=== PATIENT | female | born 1965 | race Caucasian/White ===

== ENCOUNTER 2017-05-16 20:28 | Emergency (ER) | payer BC ==
[2017-05-16 21:25] LABS: ADD MAN DIFF? NO
[2017-05-16 21:28] LABS: BASO # 0.2 x10^3/uL (0.0-0.2); BASO % 2 % (0-3); EOS # 0.5 x10^3/uL (0.0-0.7); EOS % 5 % (0-3); HEMATOCRIT 27.9 % (36.0-47.0); HEMOGLOBIN 9.3 g/dL (12.0-15.5); LYMPH # 2.3 x10^3/uL (1.0-4.8); LYMPH % 23 % (24-48); MEAN CORPUSCULAR HEMOGLOBIN 28 pg (25-35); MEAN CORPUSCULAR HGB CONC 33 g/dL (31-37); MEAN CORPUSCULAR VOLUME 83 fL (79-100); MONO # 0.5 x10^3/uL (0.0-1.1); MONO % 5 % (0-9); NEUT # 6.6 x10^3uL (1.8-7.7); NEUT % 65 % (31-73); PLATELET COUNT 253 x10^3/uL (140-400); RED BLOOD COUNT 3.35 x10^6/uL (3.50-5.40); RED CELL DISTRIBUTION WIDTH 15.4 % (11.5-14.5); WHITE BLOOD COUNT 10.1 x10^3/uL (4.0-11.0)
[2017-05-16] MEDS: IV NORMAL SALINE 1000ML BAG 1,000 ML IV (21:35)
[2017-05-16 21:40] LABS: ANION GAP 15 (6-14); BLOOD UREA NITROGEN 94 mg/dL (7-20); BUN/CREATININE RATIO 24 (6-20); CALCIUM 8.8 mg/dL (8.5-10.1); CARBON DIOXIDE 21 mmol/L (21-32); CHLORIDE 108 mmol/L (98-107); CREATININE 3.9 mg/dL (0.6-1.0); GFR 12.1; GLUCOSE 137 mg/dL (70-99); POTASSIUM 5.3 mmol/L (3.5-5.1); SODIUM 144 mmol/L (136-145)
[2017-05-16 21:46] LABS: ALBUMIN 3.1 g/dL (3.4-5.0); ALBUMIN/GLOBULIN RATIO 0.9 (1.0-1.7); ALK PHOS 100 U/L (46-116); ALT (SGPT) 23 U/L (14-59); AST (SGOT) 15 U/L (15-37); LIPASE 214 U/L (73-393); TOTAL BILIRUBIN 0.2 mg/dL (0.2-1.0); TOTAL PROTEIN 6.4 g/dL (6.4-8.2)
[2017-05-16 21:48] LABS: TROPONINI < 0.017 ng/mL (0.000-0.055)
[2017-05-16 22:11] LABS: CKMB INDEX 1.8 % (0-4); CKMB MASS 1.5 ng/mL (0.0-3.6); CREATINE KINASE 83 U/L (26-192)
[2017-05-16 22:11] LABS: NT-PRO BNP 580 pg/mL (0-124)
== END 2017-05-16 23:00 | disposition home or self-care (01) ==
LOC: ER 20:28
DX: B34.9 Viral infection, unspecified (principal); I12.9 Hypertensive chronic kidney disease with stage 1 through stage 4 chronic kidney disease, or unspecified chronic kidney disease; E11.22 Type 2 diabetes mellitus with diabetic chronic kidney disease; N18.4 Chronic kidney disease, stage 4 (severe); E78.00 Pure hypercholesterolemia, unspecified; E66.01 Morbid (severe) obesity due to excess calories; Z76.82 Awaiting organ transplant status; Z68.42 Body mass index [BMI] 45.0-49.9, adult
CPT/HCPCS: 36415; 71045; 80053; 82553; 83690; 83880; 84484; 85025; 93005; 96360; 99285-25; J7030

== ENCOUNTER 2017-07-03 12:24 | Emergency (ER) | payer SELFPAY, BC ==
[2017-07-03 12:52] LABS: BILIRUBIN,URINE NEGATIVE (NEG); CLARITY,URINE TURBID; COLOR,URINE ORANGE; GLUCOSE,URINE NEGATIVE (NEG); NITRITE,URINE POSITIVE (NEG); PROTEIN,URINE 100 mg/dL (NEG-TRACE)
[2017-07-03 13:01] LABS: BACTERIA,URINE MANY /HPF (0-FEW); WBC,URINE TNTC /HPF (0-4)
== END 2017-07-03 13:30 | disposition home or self-care (01) ==
LOC: ER 12:24
DX: N39.0 Urinary tract infection, site not specified (principal); I12.9 Hypertensive chronic kidney disease with stage 1 through stage 4 chronic kidney disease, or unspecified chronic kidney disease; E11.22 Type 2 diabetes mellitus with diabetic chronic kidney disease; N18.4 Chronic kidney disease, stage 4 (severe); E78.00 Pure hypercholesterolemia, unspecified; G47.30 Sleep apnea, unspecified; Z87.440 Personal history of urinary (tract) infections; Z98.51 Tubal ligation status; [UNRECOGNIZED DIAGNOSIS CODE]
CPT/HCPCS: 81001; 87086; 87186; 99284

== ENCOUNTER → 2017-12-20 | Outpatient (CLI) | payer OTHER ==
[2017-07-03 12:42] VITALS: BP 147/48
[~2017-12-20] MED LIST: CIPR500T94 PO; FLUC150T PO
--- NOTE | 2017-12-21 16:26 | RAD ---
History: Routine screening. Technique: Bilateral digital mammographic routine views were obtained with CAD - computer aided detection. Comparison: 08/31/2014, 09/01/2012, 08/21/2015. Findings: Breast Tissue Density C : The breast tissue is heterogeneously dense. Scattered fibroglandular elements may obscure underlying pathology. There are no suspicious masses, microcalcifications or areas of architectural distortion. Impression: No suspicious findings. Recommendation: In the absence of new clinical symptoms or change in physical exam, annual screening mammography is recommended. BI-RADS Category 1: Negative. Your mammogram demonstrates that you have dense breast tissue, which could hide abnormalities, and if you have other risk factors for breast cancer that have been identified, you might benefit from supplemental screening tests that may be suggested by your ordering physician. Dense breast tissue, in and of itself, is a relatively common condition. This information is not provided to cause undue concern, but rather to raise your awareness and to promote discussion with your physician regarding the presence of other risk factors, in addition to dense breast tissue. A report of your mammography results will be sent to you and your physician. You should contact your physician if you have any questions or concerns regarding this report. A mammogram does not have 100% sensitivity and therefore a negative imaging study should not delay further work up of a suspicious abnormality. The patient will receive a letter with the results in the mail. Patient information is entered into the reminder system with a target due date for the next screening mammogram. The patient will receive a reminder. "Our facility is accredited by the [employer] Mammography Program."
== END | disposition home or self-care (01) ==
LOC: MAMMO 13:49
PROVIDERS: ATTEND Family Medicine
DX: R92.2 Inconclusive mammogram (principal); Z12.31 Encounter for screening mammogram for malignant neoplasm of breast
CPT/HCPCS: 77067

== ENCOUNTER → 2017-12-23 | Outpatient (CLI) | payer OTHER ==
[2017-07-03 12:42] VITALS: BP 147/48
--- NOTE | 2017-12-23 17:51 | RAD ---
EXAM: 3 views left foot DATE: 12/23/2017 10:00 AM INDICATION: open wound under left great toe, diabetic COMPARISON: No Prior FINDINGS: Diffuse soft tissue swelling about the left great toe. Ulceration is seen most prominent laterally and at the plantar aspect. No definite subjacent erosive/destructive change or periostitis is seen to suggest osteomyelitis. No evidence of acute fracture or dislocation. Mild ankle joint degenerative changes are seen with small anterior tibial osteophytes. Small dorsal midfoot osteophytes are also seen. Small plantar calcaneal enthesophyte is seen. IMPRESSION: 1. Soft tissue swelling and ulceration about the left great toe without radiographic evidence for acute osteomyelitis. MRI is more sensitive. 2. No evidence of acute fracture or dislocation. 3. Mild ankle and midfoot degenerative changes 4. Calcaneal enthesopathy. Electronically signed by: Rigo Andres MD (12/23/2017 5:47 PM) [facility]
== END | disposition home or self-care (01) ==
LOC: PMGWOUND 08:57
PROVIDERS: ATTEND Emergency Medicine Undersea and Hyperbaric Medicine
DX: E11.621 Type 2 diabetes mellitus with foot ulcer (principal); L97.521 Non-pressure chronic ulcer of other part of left foot limited to breakdown of skin; I12.9 Hypertensive chronic kidney disease with stage 1 through stage 4 chronic kidney disease, or unspecified chronic kidney disease; E11.22 Type 2 diabetes mellitus with diabetic chronic kidney disease; N18.4 Chronic kidney disease, stage 4 (severe); E11.319 Type 2 diabetes mellitus with unspecified diabetic retinopathy without macular edema; E11.42 Type 2 diabetes mellitus with diabetic polyneuropathy; M13.88 Other specified arthritis, other site; F32.9 Major depressive disorder, single episode, unspecified; F17.210 Nicotine dependence, cigarettes, uncomplicated; Z79.4 Long term (current) use of insulin; Z85.3 Personal history of malignant neoplasm of breast
CPT/HCPCS: 73630; 99204

== ENCOUNTER → 2017-12-27 | Outpatient (CLI) | payer OTHER ==
[2017-07-03 12:42] VITALS: BP 147/48
--- NOTE | 2017-12-27 16:08 | RAD ---
Left lower extremity arterial duplex ultrasound 12/27/2017 INDICATION: Left great toe swelling, redness COMPARISON STUDY: None FINDINGS: Elevated velocity is seen within the left common femoral artery, up to 245 cm/s. The profunda femoris artery is grossly patent. Mildly elevated velocities are seen in the distal left SFA up to 200 cm/s. The popliteal artery, anterior tibial artery, dorsalis pedis artery. We grossly patent. IMPRESSION: Increased velocities of the left common femoral and superficial femoral artery. Findings suggest possible hemodynamically significance stenosis. Consider CTA or conventional angiography for further evaluation. Electronically signed by: Manny Mcfadden MD (12/27/2017 4:04 PM) [id number]
--- NOTE | 2017-12-27 17:11 | RAD ---
EXAM: Left lower extremity arterial Doppler sonogram with ankle-brachial indices (ONELIA). HISTORY: Great toe swelling and redness. TECHNIQUE: Doppler sonographic evaluation of the left lower extremity was performed and pressure readings were assessed. FINDINGS: Right brachial pressure: 135 mmHg Left brachial pressure: 143 mmHg Left ankle pressure posterior tibial artery: 129 mmHg Left ankle pressure dorsalis pedis artery: 137 mmHg Left ankle ONELIA: 0.95 IMPRESSION: Normal to low normal left ankle-brachial index. Electronically signed by: Julianne Heller MD (12/27/2017 5:07 PM) [place] [id number]
== END | disposition home or self-care (01) ==
LOC: US 06:35
PROVIDERS: ATTEND Emergency Medicine Undersea and Hyperbaric Medicine
DX: R22.42 Localized swelling, mass and lump, left lower limb (principal)
CPT/HCPCS: 93922; 93926

== ENCOUNTER → 2017-12-30 | Outpatient (CLI) | payer OTHER ==
[2017-07-03 12:42] VITALS: BP 147/48
== END | disposition home or self-care (01) ==
LOC: PMGWOUND 09:26
PROVIDERS: ATTEND Emergency Medicine Undersea and Hyperbaric Medicine
DX: E11.621 Type 2 diabetes mellitus with foot ulcer (principal); L97.521 Non-pressure chronic ulcer of other part of left foot limited to breakdown of skin; I12.9 Hypertensive chronic kidney disease with stage 1 through stage 4 chronic kidney disease, or unspecified chronic kidney disease; E11.22 Type 2 diabetes mellitus with diabetic chronic kidney disease; N18.4 Chronic kidney disease, stage 4 (severe); E11.42 Type 2 diabetes mellitus with diabetic polyneuropathy; E11.319 Type 2 diabetes mellitus with unspecified diabetic retinopathy without macular edema; J44.9 Chronic obstructive pulmonary disease, unspecified; M13.88 Other specified arthritis, other site; F32.9 Major depressive disorder, single episode, unspecified; F17.210 Nicotine dependence, cigarettes, uncomplicated; Z79.4 Long term (current) use of insulin; Z85.3 Personal history of malignant neoplasm of breast
CPT/HCPCS: 93923; 97597

== ENCOUNTER → 2018-01-03 | Outpatient (CLI) | payer OTHER ==
[2017-07-03 12:42] VITALS: BP 147/48
== END | disposition home or self-care (01) ==
LOC: PMGWOUND 08:52
PROVIDERS: ATTEND Emergency Medicine Undersea and Hyperbaric Medicine
DX: E11.621 Type 2 diabetes mellitus with foot ulcer (principal); L97.528 Non-pressure chronic ulcer of other part of left foot with other specified severity; I12.9 Hypertensive chronic kidney disease with stage 1 through stage 4 chronic kidney disease, or unspecified chronic kidney disease; E11.22 Type 2 diabetes mellitus with diabetic chronic kidney disease; N18.4 Chronic kidney disease, stage 4 (severe); E11.42 Type 2 diabetes mellitus with diabetic polyneuropathy; E11.319 Type 2 diabetes mellitus with unspecified diabetic retinopathy without macular edema; M13.88 Other specified arthritis, other site; J44.9 Chronic obstructive pulmonary disease, unspecified; F32.9 Major depressive disorder, single episode, unspecified; F17.210 Nicotine dependence, cigarettes, uncomplicated; E66.9 Obesity, unspecified; Z68.42 Body mass index [BMI] 45.0-49.9, adult; Z79.4 Long term (current) use of insulin; Z85.3 Personal history of malignant neoplasm of breast
CPT/HCPCS: 99213

== ENCOUNTER → 2018-10-12 | Outpatient (CLI) | payer OTHER ==
[2017-07-03 12:42] VITALS: BP 147/48
--- NOTE | 2018-10-12 17:02 | RAD ---
EXAM: Chest, 2 views. HISTORY: End-stage renal disease. Shortness of breath. COMPARISON: None. FINDINGS: 2 views of the chest are obtained. There is no infiltrate, pleural effusion or pneumothorax. There is a prominent cardiac silhouette. IMPRESSION: No acute pulmonary finding. Electronically signed by: Julianne Heller MD (10/12/2018 4:59 PM) [facility]
== END | disposition home or self-care (01) ==
LOC: RAD 15:39
PROVIDERS: ATTEND Internal Medicine Nephrology
DX: I12.0 Hypertensive chronic kidney disease with stage 5 chronic kidney disease or end stage renal disease (principal); E11.22 Type 2 diabetes mellitus with diabetic chronic kidney disease; N18.6 End stage renal disease; N25.81 Secondary hyperparathyroidism of renal origin; Z99.2 Dependence on renal dialysis
CPT/HCPCS: 36415; 71046; 86705; 86706; 87340

== ENCOUNTER 2018-11-24 15:32 | Inpatient (IN) | payer MEDICAID ==
[~2018-11-24] VITALS: Ht 160 cm; Wt 124.7 kg
[2018-11-24 15:00] VITALS: BP 131/53
[2018-11-24] MEDS ORDERED: PIPERACILLIN/TAZOBACTAM 4.5 GM in IV NORMAL SALINE 100ML 100 ML IV SCH (18:00)
[2018-11-24] MEDS: IV NORMAL SALINE 1000ML BAG 1,000 ML IV SCH (18:26)
[2018-11-24 18:33] LABS: BASO # 0.1 x10^3/uL (0.0-0.2); BASO % 1 % (0-3); EOS # 0.1 x10^3/uL (0.0-0.7); EOS % 1 % (0-3); HEMATOCRIT 27.1 % (36.0-47.0); HEMOGLOBIN 9.1 g/dL (12.0-15.5); LYMPH # 2.1 x10^3/uL (1.0-4.8); LYMPH % 19 % (24-48); MEAN CORPUSCULAR HEMOGLOBIN 29 pg (25-35); MEAN CORPUSCULAR HGB CONC 34 g/dL (31-37); MEAN CORPUSCULAR VOLUME 87 fL (79-100); MONO # 0.9 x10^3/uL (0.0-1.1); MONO % 8 % (0-9); NEUT # 7.8 x10^3/uL (1.8-7.7); NEUT % 72 % (31-73); PLATELET COUNT 219 x10^3/uL (140-400); RED CELL DISTRIBUTION WIDTH 19.2 % (11.5-14.5)
[2018-11-24 18:49] LABS: ALBUMIN 2.4 g/dL (3.4-5.0); ALBUMIN/GLOBULIN RATIO 0.5 (1.0-1.7); CALCIUM 8.6 mg/dL (8.5-10.1); CREATININE 3.5 mg/dL (0.6-1.0); GFR 13.6; POTASSIUM 3.1 mmol/L (3.5-5.1); TOTAL BILIRUBIN 0.3 mg/dL (0.2-1.0); TOTAL PROTEIN 6.9 g/dL (6.4-8.2); URIC ACID 6.4 mg/dL (2.6-6.0)
[2018-11-24 19:00] VITALS: BP 111/51
[2018-11-24] MEDS ORDERED: VANCOMYCIN 2 GM in IV NORMAL SALINE 500ML BAG 500 ML IV ONE (19:00)
[2018-11-24 19:04] LABS: C-REACTIVE PROTEIN 273.8 mg/L (0-3.3)
[2018-11-24] MEDS ORDERED: TORS10TA3 PO (19:56)
[2018-11-24] MEDS ORDERED: FERR325T14 PO (19:56)
[2018-11-24] MEDS ORDERED: TURM500C4 PO (19:56)
[2018-11-24] MEDS ORDERED: GABA300C18 PO (19:56)
[2018-11-24] MEDS ORDERED: MULT1TAB49 PO (19:56)
[2018-11-24] MEDS ORDERED: DULO30CA2 PO (19:56)
[2018-11-24] MEDS ORDERED: CARV25TA2 PO (19:56)
[2018-11-24] MEDS ORDERED: jenuvia (19:56)
[2018-11-24] MEDS ORDERED: ASPI-630 PO (19:56)
[2018-11-24] MEDS ORDERED: TORS20TA2 PO (19:56)
[2018-11-24] MEDS ORDERED: ATOR40TA59 PO (19:56)
[2018-11-24] MEDS ORDERED: GABA600T7 PO (19:56)
[2018-11-24] MEDS ORDERED: MONT10TA49 PO (19:56)
[2018-11-24] MEDS ORDERED: BISA-97 PO (19:56)
[2018-11-24] MEDS ORDERED: INSU100I17 SQ (20:01)
[2018-11-24] MEDS ORDERED: INSU100I13 SQ (20:01)
[2018-11-24] MEDS: MONTELUKAST SODIUM 10 MG TABLET. PO SCH (20:17)
[2018-11-24] MEDS: TORSEMIDE 20 MG TABLET. PO SCH (20:18)
[2018-11-24] MEDS: ATORVASTATIN CALCIUM 40 MG TABLET. PO SCH (20:18)
[2018-11-24] MEDS: DULoxetine HCL 30 MG CAPSULE.DR PO SCH (20:18)
[2018-11-24] MEDS: HYDROcodone/APAP 7.5/325MG 1 TAB TABLET PO PRN (20:19)
[2018-11-24] MEDS: GABAPENTIN 300 MG CAPSULE. PO SCH (21:09)
[2018-11-24] MEDS ORDERED: INSULIN LISPRO 300 UNITS/3 ML INSULN.PEN. SQ ONE (21:30)
[2018-11-24] MEDS: INSULIN GLARGINE 300 UNITS/3 ML INSULN.PEN. SQ SCH (22:41)
[2018-11-24 23:00] VITALS: BP 120/49
[2018-11-25] MEDS: PIPERACILLIN/TAZOBACTAM 2.25 GM in IV NORMAL SALINE 50ML 50 ML IV SCH ×4 (00:22→17:25)
[2018-11-25] MEDS: HYDROcodone/APAP 7.5/325MG 1 TAB TABLET PO PRN ×2 (00:22→05:06)
[2018-11-25 03:00] VITALS: BP 136/52
--- NOTE | 2018-11-25 03:15 | NUR ---
Applied 2L NC to patient d/t oxygen saturation of 87% while sleeping. Patient is supposed to wear CPAP at home but doesn't. Oxygen saturation mane to 94% with 2L per NC. Will continue to monitor and pass along to day RN.
[2018-11-25 05:03] LABS: BASO # 0.1 x10^3/uL (0.0-0.2); BASO % 1 % (0-3); EOS # 0.2 x10^3/uL (0.0-0.7); EOS % 2 % (0-3); HEMATOCRIT 27.6 % (36.0-47.0); HEMOGLOBIN 8.9 g/dL (12.0-15.5); LYMPH % 18 % (24-48); MEAN CORPUSCULAR HEMOGLOBIN 28 pg (25-35); MEAN CORPUSCULAR HGB CONC 32 g/dL (31-37); MEAN CORPUSCULAR VOLUME 88 fL (79-100); MONO % 9 % (0-9); NEUT # 7.8 x10^3/uL (1.8-7.7); NEUT % 71 % (31-73); PLATELET COUNT 250 x10^3/uL (140-400); RED BLOOD COUNT 3.13 x10^6/uL (3.50-5.40); RED CELL DISTRIBUTION WIDTH 19.1 % (11.5-14.5); WHITE BLOOD COUNT 11.1 x10^3/uL (4.0-11.0)
[2018-11-25 05:21] LABS: CALCIUM 8.8 mg/dL (8.5-10.1); CREATININE 3.6 mg/dL (0.6-1.0); GFR 13.2; POTASSIUM 3.7 mmol/L (3.5-5.1)
[2018-11-25] MEDS: IV NORMAL SALINE 1000ML BAG 1,000 ML IV SCH ×2 (06:35→19:16)
[2018-11-25 07:00] VITALS: BP 99/54
[2018-11-25] MEDS ORDERED: SITA50TA PO (07:13)
[2018-11-25] MEDS: INSULIN LISPRO 300 UNITS/3 ML INSULN.PEN. SQ SCH ×3 (07:30→16:30)
--- NOTE | 2018-11-25 07:37 | RAD ---
Ultrasound venous Doppler INDICATION:Right ankle swelling and pain. TECHNIQUE: Grayscale, color Doppler and spectral waveform ultrasound images of the right lower extremity deep veins obtained. COMPARISON: None FINDINGS: The interrogated deep veins are compressible and demonstrate evidence of blood flow with normal respiratory variation and response to augmentation. IMPRESSION: No sonographic evidence of acute DVT of the right lower extremity deep veins. Electronically signed by: Jonatan Holland DO (11/25/2018 7:35 AM) [facility]
--- NOTE | 2018-11-25 07:42 | RAD ---
Indication: Right leg swelling and pain TECHNIQUE: 3 views of the right ankle and 2 views of the tibia and fibula COMPARISON: None Findings: No acute fracture or dislocation. Moderate ankle and foot swelling. Ankle mortise is intact. Erosive changes are seen in the dorsal aspect of the head of the talus. Bridging osteophyte is seen in the dorsal aspect of the navicular bone and medial cuneiform. Moderate-sized plantar calcaneal spur noted. Erosive changes seen in the medial and superior aspect of the navicular bone. IMPRESSION: Findings are concerning for osteomyelitis involving head of the talus and navicular bone. Septic arthritis involving joint between navicular bone and medial cuneiform is also a possibility. Consider further evaluation with MRI of the foot with IV contrast. Electronically signed by: Jonatan Holland DO (11/25/2018 7:39 AM) [facility]
--- NOTE | 2018-11-25 08:31 | PDOC1 ---
H & P. HPI: Ms. Walker is a 53-year-old female with past medical history of hypertension, diabetes, end-stage renal disease requiring dialysis, COPD, nicotine dependence, hyperlipidemia, who presented to clinic yesterday for recent onset right foot pain without known injury. She notes that pain began about 2-3 days ago and increased in severity fairly quickly with swelling and erythema over the dorsum of the right foot. She also notes pain extends into the right posterior calf. She was also complaining of feeling weak, having fever at home, chills and malaise. She was noted in clinic yesterday to have a temperature of 100.2 and a blood pressure of 89/50 with a heart rate of 92. Out of concern for cellulitis and sepsis, she was directly admitted for further evaluation and management. A right lower extremity Doppler was negative for DVT. An x-ray of the right foot shows osteomyelitis of the talus versus possible septic joint. Her labs are remarkable for elevated creatinine, I am unsure of patient's current baseline. She routinely gets dialysis on Wednesdays and Fridays. Uric acid is mildly elevated, gout could be considered, but given other signs of infectious source, it is less likely. CRP and ESR are markedly elevated, although she does not have leukocytosis or left shift. ROS: Constitutional: Admits fever, fatigue, chills HEENT: Denies sore throat, vision changes Cardio: Denies chest pain, dyspnea with exertion, syncope, palpitations Pulmonary: Denies shortness of breath, cough, wheezing GI: Denies nausea, vomiting, diarrhea, constipation : Denies dysuria, frequency, urgency, incontinence Skin: Admits redness of the right foot MSK: Swelling, pain of the right foot Neuro: Admits chronic peripheral diabetic neuropathy PMH: As above FAMILY HX: Noncontributory SOCIAL HX: Former smoker for many years, quit recently. No significant alcohol use or drug use. SURGICAL HX: Left knee meniscus repair, tonsillectomy, tubal ligation, multiple attempts at fistula placement in the left upper extremity for dialysis MEDS: Reviewed and reconciled ALLERGIES: Reviewed PE: Alert, oriented, no acute distress, morbidly obese, ill-appearing EOMI, sclera non-icteric Neck supple RRR, no murmur CTAB, no wheezes, crackles or rhonchi Soft, NT, ND Significant erythema, swelling, tenderness of the dorsum of the right foot that extends to the base of metatarsals. Tenderness of the right calf. Decreased range of motion of the ankle due to pain. Calm, cooperative, mood/affect within normal limits ASSESSMENT & PLAN: Sepsis secondary to cellulitis, likely osteomyelitis of talus/navicular versus septic joint navicular/medial cuneiform of the right foot End-stage renal disease, dependence on dialysis Hypertension Diabetes History of nicotine dependence Hyperlipidemia Morbid obesity Diabetic polyneuropathy ID, Ortho, nephrology have been consulted. X-ray shows findings significant for osteomyelitis versus septic joint, recommends an MRI, though unable to order one in the chart at this time?? Pt has no contraindication for MRI Continue antibiotics Pain control Await cultures Due for dialysis today ADELIA RAMOS MD Nov 25, 2018 08:31
--- NOTE | 2018-11-25 08:56 | NUR ---
SW reviewed pt's medical chart and evaluated for potential dc needs. Pt is from home with family and was admitted for lower extremity cellulitis. Pt is on dialysis and 2 liters of O2. PT/OT has not been ordered. SW will follow and be available for dc needs.
[2018-11-25] MEDS ORDERED: NON FORMULARY ITEM (Turmeric/Turmeric Root Extract (Turmeric 500 mg Capsule) 1 EACH) PO SCH (09:00)
[2018-11-25] MEDS: LACTOBACILLUS RHAMNOSUS GG 1 CAPSULE. PO SCH ×2 (09:00→20:34)
--- NOTE | 2018-11-25 09:56 | PDOC ---
Infectious Disease Note Vital Sign Vital Signs Vital Signs Date Time Temp Pulse Resp B/P (MAP) Pulse Ox O2 Delivery O2 Flow Rate FiO2 11/25/18 07:00 98.1 78 17 99/54 (69) 90 Nasal Cannula 2.0 98.1 Labs Lab Laboratory Tests Test 11/24/18 17:22 11/24/18 18:25 11/24/18 20:53 11/24/18 22:39 Glucose (Fingerstick) 214 mg/dL (70-99) 239 mg/dL (70-99) 224 mg/dL (70-99) White Blood Count 11.0 x10^3/uL (4.0-11.0) Red Blood Count 3.10 x10^6/uL (3.50-5.40) Hemoglobin 9.1 g/dL (12.0-15.5) Hematocrit 27.1 % (36.0-47.0) Mean Corpuscular Volume 87 fL (79-100) Mean Corpuscular Hemoglobin 29 pg (25-35) Mean Corpuscular Hemoglobin Concent 34 g/dL (31-37) Red Cell Distribution Width 19.2 % (11.5-14.5) Platelet Count 219 x10^3/uL (140-400) Neutrophils (%) (Auto) 72 % (31-73) Lymphocytes (%) (Auto) 19 % (24-48) Monocytes (%) (Auto) 8 % (0-9) Eosinophils (%) (Auto) 1 % (0-3) Basophils (%) (Auto) 1 % (0-3) Neutrophils # (Auto) 7.8 x10^3/uL (1.8-7.7) Lymphocytes # (Auto) 2.1 x10^3/uL (1.0-4.8) Monocytes # (Auto) 0.9 x10^3/uL (0.0-1.1) Eosinophils # (Auto) 0.1 x10^3/uL (0.0-0.7) Basophils # (Auto) 0.1 x10^3/uL (0.0-0.2) Erythrocyte Sedimentation Rate 104 (0-25) Sodium Level 137 mmol/L (136-145) Potassium Level 3.1 mmol/L (3.5-5.1) Chloride Level 98 mmol/L (98-107) Carbon Dioxide Level 28 mmol/L (21-32) Anion Gap 11 (6-14) Blood Urea Nitrogen 42 mg/dL (7-20) Creatinine 3.5 mg/dL (0.6-1.0) Estimated GFR (Cockcroft-Gault) 13.6 BUN/Creatinine Ratio 12 (6-20) Glucose Level 258 mg/dL (70-99) Uric Acid 6.4 mg/dL (2.6-6.0) Calcium Level 8.6 mg/dL (8.5-10.1) Total Bilirubin 0.3 mg/dL (0.2-1.0) Aspartate Amino Transf (AST/SGOT) 18 U/L (15-37) Alanine Aminotransferase (ALT/SGPT) 25 U/L (14-59) Alkaline Phosphatase 106 U/L (46-116) C-Reactive Protein, Quantitative 273.8 mg/L (0-3.3) Total Protein 6.9 g/dL (6.4-8.2) Albumin 2.4 g/dL (3.4-5.0) Albumin/Globulin Ratio 0.5 (1.0-1.7) Test 11/25/18 04:30 11/25/18 07:22 White Blood Count 11.1 x10^3/uL (4.0-11.0) Red Blood Count 3.13 x10^6/uL (3.50-5.40) Hemoglobin 8.9 g/dL (12.0-15.5) Hematocrit 27.6 % (36.0-47.0) Mean Corpuscular Volume 88 fL (79-100) Mean Corpuscular Hemoglobin 28 pg (25-35) Mean Corpuscular Hemoglobin Concent 32 g/dL (31-37) Red Cell Distribution Width 19.1 % (11.5-14.5) Platelet Count 250 x10^3/uL (140-400) Neutrophils (%) (Auto) 71 % (31-73) Lymphocytes (%) (Auto) 18 % (24-48) Monocytes (%) (Auto) 9 % (0-9) Eosinophils (%) (Auto) 2 % (0-3) Basophils (%) (Auto) 1 % (0-3) Neutrophils # (Auto) 7.8 x10^3/uL (1.8-7.7) Lymphocytes # (Auto) 2.0 x10^3/uL (1.0-4.8) Monocytes # (Auto) 1.0 x10^3/uL (0.0-1.1) Eosinophils # (Auto) 0.2 x10^3/uL (0.0-0.7) Basophils # (Auto) 0.1 x10^3/uL (0.0-0.2) Sodium Level 140 mmol/L (136-145) Potassium Level 3.7 mmol/L (3.5-5.1) Chloride Level 102 mmol/L (98-107) Carbon Dioxide Level 26 mmol/L (21-32) Anion Gap 12 (6-14) Blood Urea Nitrogen 52 mg/dL (7-20) Creatinine 3.6 mg/dL (0.6-1.0) Estimated GFR (Cockcroft-Gault) 13.2 Glucose Level 130 mg/dL (70-99) Calcium Level 8.8 mg/dL (8.5-10.1) Glucose (Fingerstick) 100 mg/dL (70-99) Micro IMPRESSION: Findings are concerning for osteomyelitis involving head of the talus and navicular bone. Septic arthritis involving joint between navicular bone and medial cuneiform is also a possibility. Consider further evaluation with MRI of the foot with IV contrast. Objective Assessment Fever Right foot swelling/pain sudden onset - no trauma CKD on HD Morbid obesity Plan Plan of Care repeat uric acid MRI foot - unusual for Osteomyelitis without wound or trauma and a sudden onset Agree with Vanc/zosyn Add procalcitonin - could be elevated in CKD but if severely elevated could give indication of possible infection F/u response - Await Ortho eval - ? aspiration r/o gout vs septic joint - MRI ordered F/u labs and cults Thank you # [id number] TAY GELLER MD Nov 25, 2018 09:56
--- NOTE | 2018-11-25 10:00 | NUR ---
wound care patient seen per wound care consult. patient has no open areas, no wounds noted at this time. patient has some redness and swelling to the right foot. no wounds at this time- wound care is signing of at this time, please re-consult if the integumentary assessment changes.
--- NOTE | 2018-11-25 10:01 | PDOC2 ---
CONSULT Date of Consult Date of Consult DATE: 11/25/18 TIME: 10:01 Reason for Consult Reason for Consult: ESRD Source Source: Chart review History of Present Illness Reason for Visit: Ms. Walker is a 53-year-old female with past medical history of hypertension, diabetes, end-stage renal disease requiring dialysis, COPD, nicotine dependence, hyperlipidemia, who presented to clinic yesterday for recent onset right foot pain without known injury. She notes that pain began about 2-3 days ago and increased in severity fairly quickly with swelling and erythema over the dorsum of the right foot. She also notes pain extends into the right posterior calf. She was also complaining of feeling weak, having fever at home, chills and malaise. She was noted in clinic yesterday to have a temperature of 100.2 and a blood pressure of 89/50 with a heart rate of 92. Out of concern for cellulitis and sepsis, she was directly admitted for further evaluation and management. A right lower extremity Doppler was negative for DVT. An x-ray of the right foot shows osteomyelitis of the talus versus possible septic joint. Her labs are remarkable for elevated creatinine, I am unsure of patient's current baseline. She routinely gets dialysis on Wednesdays and Fridays. Uric acid is mildly elevated, gout could be considered, but given other signs of infectious source, it is less likely. CRP and ESR are markedly elevated, although she does not have leukocytosis or left shift. Current Medications Current Medications Current Medications Acetaminophen/ Hydrocodone Bitart (Lortab 7.5/325) 1 tab PRN Q4HRS PRN PO PAIN Last administered on 11/25/18at 05:06; Admin Dose 1 TAB; Start 11/24/18 at 17:15; Stop 11/25/18 at 09:03; Status DC Sodium Chloride 1,000 ml @ 75 mls/hr [id number] IV Last administered on 11/24/18at 18:26; Admin Dose 75 MLS/HR; Start 11/24/18 at 17:15 Piperacillin Sod/ Tazobactam Sod 4.5 gm/Sodium Chloride 100 ml @ 200 mls/hr Q6HRS IV ; Start 11/24/18 at 18:00; Stop 11/24/18 at 19:15; Status DC Vancomycin HCl (Vanco Per Pharmacy) 1 each PRN DAILY PRN MC SEE COMMENTS; Sta rt 7/18/19 at 17:15 Vancomycin HCl 2 gm/Sodium Chloride 500 ml @ 250 mls/hr 1X ONCE IV Last administered on 11/24/18at 21:09; Admin Dose 250 MLS/HR; Start 11/24/18 at 19:00; Stop 11/24/18 at 20:59; Status DC Piperacillin Sod/ Tazobactam Sod 2.25 gm/Sodium Chloride 50 ml @ 100 mls/hr Q6HRS IV Last administered on 11/25/18at 06:09; Admin Dose 100 MLS/HR; Start 11/25/18 at 00:00 Aspirin (Children'S Aspirin) 81 mg DAILY PO ; Start 11/25/18 at 09:00 Atorvastatin Calcium (Lipitor) 40 mg QHS PO Last administered on 11/24/18at 20:18; Admin Dose 40 MG; Start 11/24/18 at 21:00 Bisacodyl (Dulcolax Tab) 5 mg DAILY PO ; Start 11/25/18 at 09:00 Duloxetine HCl (Cymbalta) 30 mg BID PO Last administered on 11/24/18at 20:18; Admin Dose 30 MG; Start 11/24/18 at 21:00 Ferrous Sulfate (Feosol) 325 mg DAILY PO ; Start 11/25/18 at 09:00 Gabapentin (Neurontin) 300 mg DAILY PO ; Start 11/25/18 at 09:00 Insulin Glargine (Lantus) 75 units QHS SQ Last administered on 11/24/18at 22:41; Admin Dose 75 UNITS; Start 11/24/18 at 21:00 Montelukast Sodium (Singulair) 10 mg HS PO Last administered on 11/24/18at 20:17; Admin Dose 10 MG; Start 11/24/18 at 21:00 Torsemide (Demadex) 10 mg QHS PO Last administered on 11/24/18 20:18; Admin Dose 10 MG; Start 11/24/18 at 21:00 Torsemide (Demadex) 20 mg DAILY PO ; Start 11/25/18 at 09:00 Non-Formulary Medication (Turmeric/ Turmeric Root Extract (Turmeric 500 mg Capsule)) 1 each DAILY PO ; Start 11/25/18 at 09:00; Status UNV Multivitamins/ Minerals (I-Jalen) 1 tab DAILY PO ; Start 11/25/18 at 09:00 Gabapentin (Neurontin) 600 mg QHS PO Last administered on 11/24/18at 21:09; Admin Dose 600 MG; Start 11/24/18 at 21:00 Insulin Human Lispro (HumaLOG) 25 units TIDAC SQ ; Start 11/25/18 at 07:30 Insulin Human Lispro (HumaLOG) 25 units 1X ONCE SQ Last administered on 11/24/18at 21:20; Admin Dose 25 UNITS; Start 11/24/18 at 21:30; Stop 11/24/18 at 21:31; Status DC Linagliptin (Tradjenta) 5 mg DAILY PO ; Start 11/25/18 at 09:00 Lactobacillus Rhamnosus (Culturelle) 1 cap BID PO ; Start 11/25/18 at 09:00 Fentanyl Citrate (Fentanyl 2ml Vial) 75 mcg PRN Q2HR PRN IV PAIN; Start 11/25/18 at 09:15 Oxycodone/ Acetaminophen (Percocet 7.5/ 325) 1 tab PRN Q4HRS PRN PO PAIN; Start 11/25/18 at 09:15 Active Scripts Active Reported Januvia (Sitagliptin Phosphate) 50 Mg Tablet 25 Mg PO DAILY Lantus Solostar (Insulin Glargine,Hum.rec.anlog) 100 Unit/1 Ml Insuln.pen 75 Unit SQ QHS Novolog Flexpen (Insulin Aspart) 100 Unit/1 Ml Insuln.pen 25 Unit SQ TIDAC Singulair Tablet (Montelukast Sodium) 10 Mg Tablet 10 Mg PO HS Atorvastatin Calcium 40 Mg Tablet 1 Tab PO QHS Women's Gentle Laxative (Bisacodyl) 5 Mg Tablet.dr 5 Mg PO DAILY Turmeric 500 mg Capsule (Turmeric/Turmeric Root Extract) 1 Each Capsule 1 Each PO DAILY Ferrous Sulfate 325 Mg Tablet 1 Tab PO DAILY Aspirin 81 Mg Tab.chew 1 Tab PO DAILY Torsemide 10 Mg Tablet 10 Mg PO QHS Torsemide 20 Mg Tablet 1 Tab PO DAILY Gabapentin 600 Mg Tablet 600 Mg PO QHS Gabapentin (Gabapentin) 300 Mg Capsule 300 Mg PO DAILY Cymbalta (Duloxetine Hcl) 30 Mg Capsule. 1 Cap PO BID Carvedilol 25 Mg Tablet 25 Mg PO BID Daily Jalen (Multivitamin) 1 Each Tablet 1 Each PO DAILY Allergies Allergies: Coded Allergies: morphine (Verified Adverse Reaction, Severe, Nausea and Vomiting, 11/25/18) ROS Review of System Per HPI Physical Exam Physical Exam GEN: NAD HEENT: OM moist NECK: Supple, no JVD. LUNGS: Clear to auscultation. Left chest dialysis catheter HEART: S1, S2. ABDOMEN: Morbidly obese, soft, nontender, EXTREMITIES: right foot has 2+ edema, erythema NEUROLOGIC: Grossly normal No Toro Vital Signs Vital Signs Date Time Temp Pulse Resp B/P (MAP) Pulse Ox O2 Delivery O2 Flow Rate FiO2 11/25/18 07:00 98.1 78 17 99/54 (69) 90 Nasal Cannula 2.0 98.1 Assessment & Plan ESRD- On HD MWF Started on HD 6-8 weeks back, has good RRF Dialysis today as ordered ,[facility] Sepsis secondary to cellulitis, likely osteomyelitis On Abx Hypertension- BP at goal Diabetes- Per Primary History of nicotine dependence Morbid obesity Labs Labs Laboratory Tests Test 11/24/18 17:22 11/24/18 18:25 11/24/18 20:53 11/24/18 22:39 Glucose (Fingerstick) 214 mg/dL (70-99) 239 mg/dL (70-99) 224 mg/dL (70-99) White Blood Count 11.0 x10^3/uL (4.0-11.0) Red Blood Count 3.10 x10^6/uL (3.50-5.40) Hemoglobin 9.1 g/dL (12.0-15.5) Hematocrit 27.1 % (36.0-47.0) Mean Corpuscular Volume 87 fL (79-100) Mean Corpuscular Hemoglobin 29 pg (25-35) Mean Corpuscular Hemoglobin Concent 34 g/dL (31-37) Red Cell Distribution Width 19.2 % (11.5-14.5) Platelet Count 219 x10^3/uL (140-400) Neutrophils (%) (Auto) 72 % (31-73) Lymphocytes (%) (Auto) 19 % (24-48) Monocytes (%) (Auto) 8 % (0-9) Eosinophils (%) (Auto) 1 % (0-3) Basophils (%) (Auto) 1 % (0-3) Neutrophils # (Auto) 7.8 x10^3/uL (1.8-7.7) Lymphocytes # (Auto) 2.1 x10^3/uL (1.0-4.8) Monocytes # (Auto) 0.9 x10^3/uL (0.0-1.1) Eosinophils # (Auto) 0.1 x10^3/uL (0.0-0.7) Basophils # (Auto) 0.1 x10^3/uL (0.0-0.2) Erythrocyte Sedimentation Rate 104 (0-25) Sodium Level 137 mmol/L (136-145) Potassium Level 3.1 mmol/L (3.5-5.1) Chloride Level 98 mmol/L (98-107) Carbon Dioxide Level 28 mmol/L (21-32) Anion Gap 11 (6-14) Blood Urea Nitrogen 42 mg/dL (7-20) Creatinine 3.5 mg/dL (0.6-1.0) Estimated GFR (Cockcroft-Gault) 13.6 BUN/Creatinine Ratio 12 (6-20) Glucose Level 258 mg/dL (70-99) Uric Acid 6.4 mg/dL (2.6-6.0) Calcium Level 8.6 mg/dL (8.5-10.1) Total Bilirubin 0.3 mg/dL (0.2-1.0) Aspartate Amino Transf (AST/SGOT) 18 U/L (15-37) Alanine Aminotransferase (ALT/SGPT) 25 U/L (14-59) Alkaline Phosphatase 106 U/L (46-116) C-Reactive Protein, Quantitative 273.8 mg/L (0-3.3) Total Protein 6.9 g/dL (6.4-8.2) Albumin 2.4 g/dL (3.4-5.0) Albumin/Globulin Ratio 0.5 (1.0-1.7) Test 11/25/18 04:30 11/25/18 07:22 White Blood Count 11.1 x10^3/uL (4.0-11.0) Red Blood Count 3.13 x10^6/uL (3.50-5.40) Hemoglobin 8.9 g/dL (12.0-15.5) Hematocrit 27.6 % (36.0-47.0) Mean Corpuscular Volume 88 fL (79-100) Mean Corpuscular Hemoglobin 28 pg (25-35) Mean Corpuscular Hemoglobin Concent 32 g/dL (31-37) Red Cell Distribution Width 19.1 % (11.5-14.5) Platelet Count 250 x10^3/uL (140-400) Neutrophils (%) (Auto) 71 % (31-73) Lymphocytes (%) (Auto) 18 % (24-48) Monocytes (%) (Auto) 9 % (0-9) Eosinophils (%) (Auto) 2 % (0-3) Basophils (%) (Auto) 1 % (0-3) Neutrophils # (Auto) 7.8 x10^3/uL (1.8-7.7) Lymphocytes # (Auto) 2.0 x10^3/uL (1.0-4.8) Monocytes # (Auto) 1.0 x10^3/uL (0.0-1.1) Eosinophils # (Auto) 0.2 x10^3/uL (0.0-0.7) Basophils # (Auto) 0.1 x10^3/uL (0.0-0.2) Sodium Level 140 mmol/L (136-145) Potassium Level 3.7 mmol/L (3.5-5.1) Chloride Level 102 mmol/L (98-107) Carbon Dioxide Level 26 mmol/L (21-32) Anion Gap 12 (6-14) Blood Urea Nitrogen 52 mg/dL (7-20) Creatinine 3.6 mg/dL (0.6-1.0) Estimated GFR (Cockcroft-Gault) 13.2 Glucose Level 130 mg/dL (70-99) Calcium Level 8.8 mg/dL (8.5-10.1) Glucose (Fingerstick) 100 mg/dL (70-99) Laboratory Tests Test 11/24/18 17:22 11/24/18 18:25 11/24/18 20:53 11/24/18 22:39 Glucose (Fingerstick) 214 mg/dL (70-99) 239 mg/dL (70-99) 224 mg/dL (70-99) White Blood Count 11.0 x10^3/uL (4.0-11.0) Red Blood Count 3.10 x10^6/uL (3.50-5.40) Hemoglobin 9.1 g/dL (12.0-15.5) Hematocrit 27.1 % (36.0-47.0) Mean Corpuscular Volume 87 fL (79-100) Mean Corpuscular Hemoglobin 29 pg (25-35) Mean Corpuscular Hemoglobin Concent 34 g/dL (31-37) Red Cell Distribution Width 19.2 % (11.5-14.5) Platelet Count 219 x10^3/uL (140-400) Neutrophils (%) (Auto) 72 % (31-73) Lymphocytes (%) (Auto) 19 % (24-48) Monocytes (%) (Auto) 8 % (0-9) Eosinophils (%) (Auto) 1 % (0-3) Basophils (%) (Auto) 1 % (0-3) Neutrophils # (Auto) 7.8 x10^3/uL (1.8-7.7) Lymphocytes # (Auto) 2.1 x10^3/uL (1.0-4.8) Monocytes # (Auto) 0.9 x10^3/uL (0.0-1.1) Eosinophils # (Auto) 0.1 x10^3/uL (0.0-0.7) Basophils # (Auto) 0.1 x10^3/uL (0.0-0.2) Erythrocyte Sedimentation Rate 104 (0-25) Sodium Level 137 mmol/L (136-145) Potassium Level 3.1 mmol/L (3.5-5.1) Chloride Level 98 mmol/L (98-107) Carbon Dioxide Level 28 mmol/L (21-32) Anion Gap 11 (6-14) Blood Urea Nitrogen 42 mg/dL (7-20) Creatinine 3.5 mg/dL (0.6-1.0) Estimated GFR (Cockcroft-Gault) 13.6 BUN/Creatinine Ratio 12 (6-20) Glucose Level 258 mg/dL (70-99) Uric Acid 6.4 mg/dL (2.6-6.0) Calcium Level 8.6 mg/dL (8.5-10.1) Total Bilirubin 0.3 mg/dL (0.2-1.0) Aspartate Amino Transf (AST/SGOT) 18 U/L (15-37) Alanine Aminotransferase (ALT/SGPT) 25 U/L (14-59) Alkaline Phosphatase 106 U/L (46-116) C-Reactive Protein, Quantitative 273.8 mg/L (0-3.3) Total Protein 6.9 g/dL (6.4-8.2) Albumin 2.4 g/dL (3.4-5.0) Albumin/Globulin Ratio 0.5 (1.0-1.7) Test 11/25/18 04:30 11/25/18 07:22 White Blood Count 11.1 x10^3/uL (4.0-11.0) Red Blood Count 3.13 x10^6/uL (3.50-5.40) Hemoglobin 8.9 g/dL (12.0-15.5) Hematocrit 27.6 % (36.0-47.0) Mean Corpuscular Volume 88 fL (79-100) Mean Corpuscular Hemoglobin 28 pg (25-35) Mean Corpuscular Hemoglobin Concent 32 g/dL (31-37) Red Cell Distribution Width 19.1 % (11.5-14.5) Platelet Count 250 x10^3/uL (140-400) Neutrophils (%) (Auto) 71 % (31-73) Lymphocytes (%) (Auto) 18 % (24-48) Monocytes (%) (Auto) 9 % (0-9) Eosinophils (%) (Auto) 2 % (0-3) Basophils (%) (Auto) 1 % (0-3) Neutrophils # (Auto) 7.8 x10^3/uL (1.8-7.7) Lymphocytes # (Auto) 2.0 x10^3/uL (1.0-4.8) Monocytes # (Auto) 1.0 x10^3/uL (0.0-1.1) Eosinophils # (Auto) 0.2 x10^3/uL (0.0-0.7) Basophils # (Auto) 0.1 x10^3/uL (0.0-0.2) Sodium Level 140 mmol/L (136-145) Potassium Level 3.7 mmol/L (3.5-5.1) Chloride Level 102 mmol/L (98-107) Carbon Dioxide Level 26 mmol/L (21-32) Anion Gap 12 (6-14) Blood Urea Nitrogen 52 mg/dL (7-20) Creatinine 3.6 mg/dL (0.6-1.0) Estimated GFR (Cockcroft-Gault) 13.2 Glucose Level 130 mg/dL (70-99) Calcium Level 8.8 mg/dL (8.5-10.1) Glucose (Fingerstick) 100 mg/dL (70-99) Review All relevant outside records, renal labs, imaging studies, telemetry/EKG's were reviewed. FLORINA TRONCOSO MD Nov 25, 2018 10:01
[2018-11-25] MEDS ORDERED: IV NORMAL SALINE 1000ML BAG 1,000 ML IV PRN ×2 (11:37)
[2018-11-25] MEDS ORDERED: DIALYSIS PATIENT. MC PRN ×2 (11:45)
[2018-11-25] MEDS ORDERED: diphenhydrAMINE 50 MG/ML VIAL IV PRN ×2 (11:45)
--- NOTE | 2018-11-25 11:55 | CONS ---
DATE OF CONSULTATION: 11/25/2018 INFECTIOUS DISEASE CONSULTATION LOCATION: The patient's room is 512. REQUESTING PHYSICIAN: Lita Barragan MD REASON FOR CONSULTATION: Cellulitis. HISTORY OF PRESENT ILLNESS: The patient is a pleasant 53-year-old female with history of morbid obesity, hypertension, diabetes, chronic kidney disease, recently started on hemodialysis. She states on Wednesday, she noticed some pain in her right foot. She denies any trauma or twisting and no wounds. On Wednesday, she began to have increasing pain, swelling, erythema and developed temperatures. She presented to the outpatient clinic of Dr. Barragan and had a temperature of 100.2 and blood pressure 89/50. She was directly admitted from the office. Right lower extremity ultrasound was performed and was negative for DVT. Right foot x-ray showed osteomyelitis of the talus versus possible septic joint. She was admitted, started on vancomycin and Zosyn. Currently, she is comfortable, but still having some discomfort in her foot. She denies any gross sinus issues. No sore throat or cough. No nausea, vomiting, diarrhea. She does make some urine still. Denies any dysuria and has had multiple vascular procedures for her dialysis and currently has a line in place. PAST MEDICAL HISTORY: Positive for morbid obesity, hypertension, diabetes, chronic kidney disease requiring dialysis, COPD, hyperlipidemia, nicotine dependence. PAST SURGICAL HISTORY: Positive for left knee meniscus repair, tonsillectomy, tubal ligation, multiple fistula placements in left upper extremity and dialysis catheter to the left chest. REVIEW OF SYSTEMS: Otherwise negative except for what is mentioned above. ALLERGIES: No known drug allergies. SOCIAL HISTORY: She is a former smoker, recently quit. Denies any alcohol or drug use. Denies any pets. FAMILY HISTORY: Negative for any gout, diabetes or kidney disease. CURRENT MEDICATIONS: Include Zosyn, vancomycin, aspirin, Lipitor, Cymbalta, Neurontin, ferrous sulfate, insulin, Singulair, torsemide. PHYSICAL EXAMINATION: VITAL SIGNS: T-max has been 100 degrees and currently 98.1, pulse 78, respirations 17, blood pressure 99/54 and satting 90% on 2 liters. CONSTITUTIONAL: She is cooperative. She is in no acute distress. HEENT: Pupils are equal and reactive with normal conjunctivae. Oral cavity, pharynx is clear. She has dentures. NECK: Supple, no JVD. LUNGS: Clear to auscultation. Left chest dialysis catheter without signs of any complications. Lungs decreased in the bases. HEART: S1, S2. ABDOMEN: Morbidly obese, soft, nontender, nondistended, no guarding, no rebound. EXTREMITIES: No clubbing, cyanosis. Her right foot has 2+ edema. There is erythema associated with it. On the dorsal aspect to the middle and lower third, there is warmth and tenderness. NEUROLOGIC: She is nonfocal. PSYCHIATRIC: Affect is appropriate. LABORATORY VALUES: White count 11.1, hemoglobin 8.9, platelets 250, neutrophils 71%, lymphs 18. Sed rate was 104. Creatinine 3.6, glucose 258. Uric acid was 6.4. Normal liver function study tests. C-reactive protein 273.8. Lower extremity ultrasound negative. Tib-fib x-ray and foot x-ray findings concerning for osteomyelitis involving the head of the talus and navicular bone, septic arthritis involving the joint between navicular bone and medial cuneiform is also a possibility. IMPRESSION: 1. Fever. 2. Right foot swelling, pain was sudden onset. No trauma. 3. Chronic kidney disease, on hemodialysis. 4. Morbid obesity. RECOMMENDATIONS: We will repeat uric acid. We will obtain MRI of her foot without contrast given her renal function, unusual for osteomyelitis without a wound or trauma and a sudden onset. For now, continue the vancomycin. Agree with vancomycin and Zosyn. We will add procalcitonin, it could be elevated in chronic kidney disease, but a severely elevated could give indication of possible infection. Follow up response. Await ortho evaluation, questionable need for aspiration, rule out gout or septic arthritis. MRI ordered. Follow up on cultures. Thank you for allowing me to participate in the patient's care. Should you have any questions, please do not hesitate to contact me. TAY GELLER MD DR: PETER/batool JOB#: [id number] / [id number]
--- NOTE | 2018-11-25 12:08 | RAD ---
Examination: MRI of the right foot without contrast HISTORY: History of osteomyelitis COMPARISON: None available Technique: Multiplanar, multisequence MR imaging of the right foot were performed without contrast. Findings: The attachment of the gluteal tendon to the calcaneus grossly appears intact with the edematous the plantar fascial the inferior aspect of the calcaneus grossly appears intact There is decreased T1 signal identified in the distal talus, navicular bone, cuboid, medial, intermediate lateral cuneiform bones and base and proximal aspect of the second, third, fourth metatarsals. There is cortical destructive changes of the navicular bone. There are joint effusions with periarticular fluid collections about the tarsal joints and the tarsometatarsal joints. There is corresponding increased T2 signal identified in the distal calcaneus, talus and the tarsal bones and the bases of the second, third, fourth metatarsals. Prominent appearing synovium identified in the tarsal joints. There is widening of the naviculotarsal joints. The Lisfranc ligament appears intact. No obvious soft tissue focal fluid collection is identified to suggest an abscess or obvious large ulcer is not evident. Diffuse increased T2 signal identified in the soft tissue of the foot including the muscles of the foot. Examination somewhat limited due to motion artifact. IMPRESSION: 1. Above findings suggest neuropathic joints or osteomyelitis. Differentiation is difficult. However no obvious focal fluid collection in the soft tissue to suggest an abscess or ulcer. Clinical correlation for elevated WBC and fever is suggested. Consider triphasic bone scan. CT of the foot is recommended for better evaluation of bones as it is motion artifact on the MRI images. Electronically signed by: Bhavin Tran MD (11/25/2018 12:05 PM) [email or web address]
[2018-11-25] MEDS: VANCOMYCIN PER PHARMACY MC PRN (13:58)
--- NOTE | 2018-11-25 14:01 | NUR ---
Pharmacy Vancomycin Dosing Note S:Consulted to monitor and dose vancomycin started 11/24/18. O:HAVEN TITUS is a 53 year old F with cellulitis Height: 5 feet, 3 inches Weight: 124.7 kg [place] Body Weight: 52.40 Adjusted Body Weight: 81.44 Dosing Weight: Actual Other Antibiotics: ZOSYN LABS: Last BUN: 52 Last Creatinine: 3.6 Creatinine Clearance: MWF Dialysis Last WBC: 11.1 Last Procalcitonin: Tmax (past 24 hours): 100 Microbiology: - I/O: 600/- Last dose given 11/24/18 at 2109 Vancomycin Dosing: Loading Dose: 2000 mg x1 Dosing Weight: Actual Target Trough: 10-20 A: Based on: weight and renal function P: 1. Dose Vancomycin 2000 mg IV One Time 2. Follow up Random level on 11/26/18 at 0500 3. Pharmacy will continue to monitor, follow and adjust therapy as needed. Nona Marin RPH, 11/25/18 [id number]
[2018-11-25 15:00] VITALS: BP 158/68
[2018-11-25] MEDS: MULTIVITAMIN I-VITE TABLET. PO SCH (15:21)
[2018-11-25] MEDS: BISACODYL 5 MG TABLET.DR. PO SCH (15:21)
[2018-11-25] MEDS: ASPIRIN CHEWABLE 81 MG TABLET. PO SCH (15:21)
[2018-11-25] MEDS: FERROUS SULFATE 325 MG TABLET. PO SCH (15:21)
[2018-11-25] MEDS: GABAPENTIN 300 MG CAPSULE. PO SCH ×2 (15:22→20:34)
[2018-11-25] MEDS: DULoxetine HCL 30 MG CAPSULE.DR PO SCH ×2 (15:22→20:34)
[2018-11-25] MEDS: oxyCODONE/APAP 7.5/325 1 TAB TABLET PO PRN ×2 (15:22→20:34)
[2018-11-25] MEDS: TORSEMIDE 20 MG TABLET. PO SCH ×2 (15:22→20:33)
[2018-11-25] MEDS: LINAGLIPTIN 5 MG TABLET PO SCH (15:23)
[2018-11-25 19:00] VITALS: BP 126/69
--- NOTE | 2018-11-25 20:29 | PDOC2 ---
CONSULT Date of Consult Date of Consult DATE: 11/25/18 TIME: 20:25 Reason for Consult Reason for Consult: Right foot pain and swelling Identification/Chief Complaint Chief Complaint Right foot pain and swelling, no known injury Source Source: Chart review, Patient History of Present Illness Reason for Visit: This 53-year-old woman has had type 2 diabetes for about 30 years, and is on hemodialysis. She has neuropathy. She has a history of a Charcot foot several years ago, treated at [facility]. She had a neuropathic walker boot at that time, and they told her to keep it because Charcot foot can come back. She reports right foot pain and swelling and redness, with no known injury, and no obvious penetrating injury or reason for infection. She has had some low- grade temperatures, and the foot feels warm. It is very painful, despite her neuropathy. Past Medical History Endocrine: Diabetes Current Medications Current Medications Current Medications Acetaminophen/ Hydrocodone Bitart (Lortab 7.5/325) 1 tab PRN Q4HRS PRN PO PAIN Last administered on 11/25/18at 05:06; Start 11/24/18 at 17:15; Stop 11/25/18 at 09:03; Status DC Sodium Chloride 1,000 ml @ 75 mls/hr [id number] IV Last administered on 11/24/18at 18:26; Start 11/24/18 at 17:15 Piperacillin Sod/ Tazobactam Sod 4.5 gm/Sodium Chloride 100 ml @ 200 mls/hr Q6HRS IV ; Start 11/24/18 at 18:00; Stop 11/24/18 at 19:15; Status DC Vancomycin HCl (Vanco Per Pharmacy) 1 each PRN DAILY PRN MC SEE COMMENTS Last administered on 11/25/18at 13:58; Start 11/24/18 at 17:15 Vancomycin HCl 2 gm/Sodium Chloride 500 ml @ 250 mls/hr 1X ONCE IV Last administered on 11/24/18at 21:09; Start 11/24/18 at 19:00; Stop 11/24/18 at 20:59; Status DC Piperacillin Sod/ Tazobactam Sod 2.25 gm/Sodium Chloride 50 ml @ 100 mls/hr Q6HRS IV Last administered on 11/25/18at 17:25; Start 11/25/18 at 00:00 Aspirin (Children'S Aspirin) 81 mg DAILY PO Last administered on 11/25/18 15:21; Start 11/25/18 at 09:00 Atorvastatin Calcium (Lipitor) 40 mg QHS PO Last administered on 11/24/18at 20:18; Start 11/24/18 at 21:00 Bisacodyl (Dulcolax Tab) 5 mg DAILY PO Last administered on 11/25/18 15:21; Start 11/25/18 at 09:00 Duloxetine HCl (Cymbalta) 30 mg BID PO Last administered on 11/25/18 15:22; Start 11/24/18 at 21:00 Ferrous Sulfate (Feosol) 325 mg DAILY PO Last administered on 11/25/18 15:21; Start 11/25/18 at 09:00 Gabapentin (Neurontin) 300 mg DAILY PO Last administered on 11/25/18 15:22; Start 11/25/18 at 09:00 Insulin Glargine (Lantus) 75 units QHS SQ Last administered on 11/24/18at 22:41; Start 11/24/18 at 21:00 Montelukast Sodium (Singulair) 10 mg HS PO Last administered on 11/24/18 20:17; Start 11/24/18 at 21:00 Torsemide (Demadex) 10 mg QHS PO Last administered on 11/24/18 20:18; Start 11/24/18 at 21:00 Torsemide (Demadex) 20 mg DAILY PO Last administered on 11/25/18 15:22; Start 11/25/18 at 09:00 Non-Formulary Medication (Turmeric/ Turmeric Root Extract (Turmeric 500 mg Capsule)) 1 each DAILY PO ; Start 11/25/18 at 09:00; Status UNV Multivitamins/ Minerals (I-Jalen) 1 tab DAILY PO Last administered on 11/25/18 15:21; Start 11/25/18 at 09:00 Gabapentin (Neurontin) 600 mg QHS PO Last administered on 11/24/18at 21:09; Start 11/24/18 at 21:00 Insulin Human Lispro (HumaLOG) 25 units TIDAC SQ ; Start 11/25/18 at 07:30 Insulin Human Lispro (HumaLOG) 25 units 1X ONCE SQ Last administered on 11/24/18at 21:20; Start 11/24/18 at 21:30; Stop 11/24/18 at 21:31; Status DC Linagliptin (Tradjenta) 5 mg DAILY PO Last administered on 11/25/18at 15:23; Start 11/25/18 at 09:00 Lactobacillus Rhamnosus (Culturelle) 1 cap BID PO ; Start 11/25/18 at 09:00 Fentanyl Citrate (Fentanyl 2ml Vial) 75 mcg PRN Q2HR PRN IV PAIN; Start 11/25/18 at 09:15 Oxycodone/ Acetaminophen (Percocet 7.5/ 325) 1 tab PRN Q4HRS PRN PO PAIN Last administered on 11/25/18at 15:22; Start 11/25/18 at 09:15 Sodium Chloride 1,000 ml @ 1,000 mls/hr Q1H PRN IV hypotension; Start 11/25/18 at 11:37; Stop 11/25/18 at 17:36; Status DC Diphenhydramine HCl (Benadryl) 25 mg 1X PRN PRN IV ITCHING; Start 11/25/18 at 11:45; Stop 11/26/18 at 11:44 Diphenhydramine HCl (Benadryl) 25 mg 1X PRN PRN IV ITCHING; Start 11/25/18 at 11:45; Stop 11/26/18 at 11:44 Sodium Chloride 1,000 ml @ 400 mls/hr Q2H30M PRN IV PATENCY; Start 11/25/18 at 11:37; Stop 11/25/18 at 23:36 Info (PHARMACY MONITORING -- do not chart) 1 each PRN DAILY PRN MC SEE COMMENTS; Start 11/25/18 at 11:45; Status UNV Info (PHARMACY MONITORING -- do not chart) 1 each PRN DAILY PRN MC SEE COMMENTS; Start 11/25/18 at 11:45 Vancomycin HCl (Vancomycin Random Level) 1 each 1X ONCE MC ; Start 11/26/18 at 05:00; Stop 11/26/18 at 05:01 Active Scripts Active Reported Januvia (Sitagliptin Phosphate) 50 Mg Tablet 25 Mg PO DAILY Lantus Solostar (Insulin Glargine,Hum.rec.anlog) 100 Unit/1 Ml Insuln.pen 75 Unit SQ QHS Novolog Flexpen (Insulin Aspart) 100 Unit/1 Ml Insuln.pen 25 Unit SQ TIDAC Singulair Tablet (Montelukast Sodium) 10 Mg Tablet 10 Mg PO HS Atorvastatin Calcium 40 Mg Tablet 1 Tab PO QHS Women's Gentle Laxative (Bisacodyl) 5 Mg Tablet.dr 5 Mg PO DAILY Turmeric 500 mg Capsule (Turmeric/Turmeric Root Extract) 1 Each Capsule 1 Each PO DAILY Ferrous Sulfate 325 Mg Tablet 1 Tab PO DAILY Aspirin 81 Mg Tab.chew 1 Tab PO DAILY Torsemide 10 Mg Tablet 10 Mg PO QHS Torsemide 20 Mg Tablet 1 Tab PO DAILY Gabapentin 600 Mg Tablet 600 Mg PO QHS Gabapentin (Gabapentin) 300 Mg Capsule 300 Mg PO DAILY Cymbalta (Duloxetine Hcl) 30 Mg Capsule.dr 1 Cap PO BID Carvedilol 25 Mg Tablet 25 Mg PO BID Daily Jalen (Multivitamin) 1 Each Tablet 1 Each PO DAILY Allergies Allergies: Coded Allergies: morphine (Verified Adverse Reaction, Severe, Nausea and Vomiting, 11/25/18) Physical Exam General: Alert, Cooperative, No acute distress HEENT: Atraumatic Lungs: Normal air movement Heart: Regular rate Abdomen: Soft Extremities: Normal pulses, Other (the right foot is quite warm, and has dif fuse swelling especially dorsally. There is minimal deformity, possible slight irregularities in the midfoot consistent with Charcot dislocation of the midfoot. She does not have a rocker-bottom deformity or any severe Charcot deformity at this time. There are no ulcers. There is slight discoloration of the skin, more of a dark color than erythema. She has chronically decreased lig ht touch sensation in the foot, which seems unchanged. She has a palpable dorsalis pedis pulse. Slight onychomycosis of all of the toes. The left foot also has slight warmth but not as severe as the right. The left foot does not show swelling tenderness or deformity. The right foot is tender despite the neuropathy.) Skin: Other (there is no break in the skin or ulceration) Neuro: Other (decreased sensation in both feet, and she reports neuropathy in the hands as well) MUSCULOSKELETAL: Abnormal exam of right (foot as above) Vitals VITALS Vital Signs Date Time Temp Pulse Resp B/P (MAP) Pulse Ox O2 Delivery O2 Flow Rate FiO2 11/25/18 19:00 98.4 86 20 126/69 (88) 96 Nasal Cannula 98.4 11/25/18 15:22 2.0 Labs Labs Laboratory Tests Test 11/24/18 17:22 11/24/18 18:25 11/24/18 20:53 11/24/18 22:39 Glucose (Fingerstick) 214 mg/dL (70-99) 239 mg/dL (70-99) 224 mg/dL (70-99) White Blood Count 11.0 x10^3/uL (4.0-11.0) Red Blood Count 3.10 x10^6/uL (3.50-5.40) Hemoglobin 9.1 g/dL (12.0-15.5) Hematocrit 27.1 % (36.0-47.0) Mean Corpuscular Volume 87 fL (79-100) Mean Corpuscular Hemoglobin 29 pg (25-35) Mean Corpuscular Hemoglobin Concent 34 g/dL (31-37) Red Cell Distribution Width 19.2 % (11.5-14.5) Platelet Count 219 x10^3/uL (140-400) Neutrophils (%) (Auto) 72 % (31-73) Lymphocytes (%) (Auto) 19 % (24-48) Monocytes (%) (Auto) 8 % (0-9) Eosinophils (%) (Auto) 1 % (0-3) Basophils (%) (Auto) 1 % (0-3) Neutrophils # (Auto) 7.8 x10^3/uL (1.8-7.7) Lymphocytes # (Auto) 2.1 x10^3/uL (1.0-4.8) Monocytes # (Auto) 0.9 x10^3/uL (0.0-1.1) Eosinophils # (Auto) 0.1 x10^3/uL (0.0-0.7) Basophils # (Auto) 0.1 x10^3/uL (0.0-0.2) Erythrocyte Sedimentation Rate 104 (0-25) Sodium Level 137 mmol/L (136-145) Potassium Level 3.1 mmol/L (3.5-5.1) Chloride Level 98 mmol/L (98-107) Carbon Dioxide Level 28 mmol/L (21-32) Anion Gap 11 (6-14) Blood Urea Nitrogen 42 mg/dL (7-20) Creatinine 3.5 mg/dL (0.6-1.0) Estimated GFR (Cockcroft-Gault) 13.6 BUN/Creatinine Ratio 12 (6-20) Glucose Level 258 mg/dL (70-99) Uric Acid 6.4 mg/dL (2.6-6.0) Calcium Level 8.6 mg/dL (8.5-10.1) Total Bilirubin 0.3 mg/dL (0.2-1.0) Aspartate Amino Transf (AST/SGOT) 18 U/L (15-37) Alanine Aminotransferase (ALT/SGPT) 25 U/L (14-59) Alkaline Phosphatase 106 U/L (46-116) C-Reactive Protein, Quantitative 273.8 mg/L (0-3.3) Total Protein 6.9 g/dL (6.4-8.2) Albumin 2.4 g/dL (3.4-5.0) Albumin/Globulin Ratio 0.5 (1.0-1.7) Test 11/25/18 04:30 11/25/18 07:22 11/25/18 15:00 11/25/18 17:01 White Blood Count 11.1 x10^3/uL (4.0-11.0) Red Blood Count 3.13 x10^6/uL (3.50-5.40) Hemoglobin 8.9 g/dL (12.0-15.5) Hematocrit 27.6 % (36.0-47.0) Mean Corpuscular Volume 88 fL (79-100) Mean Corpuscular Hemoglobin 28 pg (25-35) Mean Corpuscular Hemoglobin Concent 32 g/dL (31-37) Red Cell Distribution Width 19.1 % (11.5-14.5) Platelet Count 250 x10^3/uL (140-400) Neutrophils (%) (Auto) 71 % (31-73) Lymphocytes (%) (Auto) 18 % (24-48) Monocytes (%) (Auto) 9 % (0-9) Eosinophils (%) (Auto) 2 % (0-3) Basophils (%) (Auto) 1 % (0-3) Neutrophils # (Auto) 7.8 x10^3/uL (1.8-7.7) Lymphocytes # (Auto) 2.0 x10^3/uL (1.0-4.8) Monocytes # (Auto) 1.0 x10^3/uL (0.0-1.1) Eosinophils # (Auto) 0.2 x10^3/uL (0.0-0.7) Basophils # (Auto) 0.1 x10^3/uL (0.0-0.2) Sodium Level 140 mmol/L (136-145) Potassium Level 3.7 mmol/L (3.5-5.1) Chloride Level 102 mmol/L (98-107) Carbon Dioxide Level 26 mmol/L (21-32) Anion Gap 12 (6-14) Blood Urea Nitrogen 52 mg/dL (7-20) Creatinine 3.6 mg/dL (0.6-1.0) Estimated GFR (Cockcroft-Gault) 13.2 Glucose Level 130 mg/dL (70-99) Uric Acid 7.4 mg/dL (2.6-6.0) Calcium Level 8.8 mg/dL (8.5-10.1) Glucose (Fingerstick) 100 mg/dL (70-99) 67 mg/dL (70-99) 181 mg/dL (70-99) Laboratory Tests Test 11/24/18 20:53 11/24/18 22:39 11/25/18 04:30 11/25/18 07:22 Glucose (Fingerstick) 239 mg/dL (70-99) 224 mg/dL (70-99) 100 mg/dL (70-99) White Blood Count 11.1 x10^3/uL (4.0-11.0) Red Blood Count 3.13 x10^6/uL (3.50-5.40) Hemoglobin 8.9 g/dL (12.0-15.5) Hematocrit 27.6 % (36.0-47.0) Mean Corpuscular Volume 88 fL (79-100) Mean Corpuscular Hemoglobin 28 pg (25-35) Mean Corpuscular Hemoglobin Concent 32 g/dL (31-37) Red Cell Distribution Width 19.1 % (11.5-14.5) Platelet Count 250 x10^3/uL (140-400) Neutrophils (%) (Auto) 71 % (31-73) Lymphocytes (%) (Auto) 18 % (24-48) Monocytes (%) (Auto) 9 % (0-9) Eosinophils (%) (Auto) 2 % (0-3) Basophils (%) (Auto) 1 % (0-3) Neutrophils # (Auto) 7.8 x10^3/uL (1.8-7.7) Lymphocytes # (Auto) 2.0 x10^3/uL (1.0-4.8) Monocytes # (Auto) 1.0 x10^3/uL (0.0-1.1) Eosinophils # (Auto) 0.2 x10^3/uL (0.0-0.7) Basophils # (Auto) 0.1 x10^3/uL (0.0-0.2) Sodium Level 140 mmol/L (136-145) Potassium Level 3.7 mmol/L (3.5-5.1) Chloride Level 102 mmol/L (98-107) Carbon Dioxide Level 26 mmol/L (21-32) Anion Gap 12 (6-14) Blood Urea Nitrogen 52 mg/dL (7-20) Creatinine 3.6 mg/dL (0.6-1.0) Estimated GFR (Cockcroft-Gault) 13.2 Glucose Level 130 mg/dL (70-99) Uric Acid 7.4 mg/dL (2.6-6.0) Calcium Level 8.8 mg/dL (8.5-10.1) Test 11/25/18 15:00 11/25/18 17:01 Glucose (Fingerstick) 67 mg/dL (70-99) 181 mg/dL (70-99) Images Images Reports reviewed, images independently reviewed. Tib-fib x-ray, foot x-ray, venous Doppler, and MRI. Based on my review of these images I suspect a neuropathic joint (acute Charcot foot). I don't see any drainable abscess. Infection seems less likely due to the multiple joints involved. The fragmentation and displacement of the navicular on MRI series 8 image 11 seems particularly suspicious for a neuropathic process. [facility] [address] [place] [address] IMAGING REPORT Signed PATIENT: HAVEN TITUS ACCOUNT: [id number] : 1965 LOCATION: [address] [place] [address] AGE: 53 SEX: F EXAM STATUS: ADM IN ORD. PHYSICIAN: ADELIA RAMOS MD REASON: RIGHT LEG SWELLING AND PAIN PROCEDURE: TIBIA FIBULA RIGHT Indication: Right leg swelling and pain TECHNIQUE: 3 views of the right ankle and 2 views of the tibia and fibula COMPARISON: None Findings: No acute fracture or dislocation. Moderate ankle and foot swelling. Ankle mortise is intact. Erosive changes are seen in the dorsal aspect of the head of the talus. Bridging osteophyte is seen in the dorsal aspect of the navicular bone and medial cuneiform. Moderate-sized plantar calcaneal spur noted. Erosive changes seen in the medial and superior aspect of the navicular bone. IMPRESSION: Findings are concerning for osteomyelitis involving head of the talus and navicular bone. Septic arthritis involving joint between navicular bone and medial cuneiform is also a possibility. Consider further evaluation with MRI of the foot with IV contrast. Electronically signed by: Jonatan Holland DO (11/25/2018 7:39 AM) [facility] DICTATED and SIGNED BY: JONATAN HOLLAND DO DATE: 11/25/18 0739 [facility] [address] [place] [address] IMAGING REPORT Signed PATIENT: HAVEN TITUS ACCOUNT: [id number] : 1965 LOCATION: [address] [place] [address] AGE: 53 SEX: F EXAM STATUS: ADM IN ORD. PHYSICIAN: ADELIA RAMOS MD REASON: RIGHT ANKLE SWELLING AND PAIN PROCEDURE: VENOUS LOWER EXTREMITY RIGHT Ultrasound venous Doppler INDICATION:Right ankle swelling and pain. TECHNIQUE: Grayscale, color Doppler and spectral waveform ultrasound images of the right lower extremity deep veins obtained. COMPARISON: None FINDINGS: The interrogated deep veins are compressible and demonstrate evidence of blood flow with normal respiratory variation and response to augmentation. IMPRESSION: No sonographic evidence of acute DVT of the right lower extremity deep veins. Electronically signed by: Jonatan Holland DO (11/25/2018 7:35 AM) [facility] DICTATED and SIGNED BY: JONATAN HOLLAND DO DATE: 11/25/18 0735 [facility] [address] [place] [address] IMAGING REPORT Signed PATIENT: HAVEN TITUS ACCOUNT: [id number] : 1965 LOCATION: [address] [place] [address] AGE: 53 SEX: F EXAM STATUS: ADM IN ORD. PHYSICIAN: TAY GELLER MD REASON: ? Osteo of R foot PROCEDURE: LOWER EXT NON JOINT WO RT Examination: MRI of the right foot without contrast HISTORY: History of osteomyelitis COMPARISON: None available Technique: Multiplanar, multisequence MR imaging of the right foot were performed without contrast. Findings: The attachment of the gluteal tendon to the calcaneus grossly appears intact with the edematous the plantar fascial the inferior aspect of the calcaneus grossly appears intact There is decreased T1 signal identified in the distal talus, navicular bone, cuboid, medial, intermediate lateral cuneiform bones and base and proximal aspect of the second, third, fourth metatarsals. There is cortical destructive changes of the navicular bone. There are joint effusions with periarticular fluid collections about the tarsal joints and the tarsometatarsal joints. There is corresponding increased T2 signal identified in the distal calcaneus, talus and the tarsal bones and the bases of the second, third, fourth metatarsals. Prominent appearing synovium identified in the tarsal joints. There is widening of the naviculotarsal joints. The Lisfranc ligament appears intact. No obvious soft tissue focal fluid collection is identified to suggest an abscess or obvious large ulcer is not evident. Diffuse increased T2 signal identified in the soft tissue of the foot including the muscles of the foot. Examination somewhat limited due to motion artifact. IMPRESSION: 1. Above findings suggest neuropathic joints or osteomyelitis. Differentiation is difficult. However no obvious focal fluid collection in the soft tissue to suggest an abscess or ulcer. Clinical correlation for elevated WBC and fever is suggested. Consider triphasic bone scan. CT of the foot is recommended for better evaluation of bones as it is motion artifact on the MRI images. Electronically signed by: Bhavin Tran MD (11/25/2018 12:05 PM) [facility] DICTATED and SIGNED BY: BHAVIN TRAN MD DATE: 11/25/18 1205 Assessment/Plan Assessment/Plan M14.671 Charcot joint right foot I believe this is a Charcot joint. The imaging shows multiple joint involvement, which is not likely to be multiple septic joints. There is an navicular fractur e, without history of trauma, again suspicious for a Charcot neuropathic fracture. She has a history of prior Charcot joint, but I don't have those other x-rays and she was treated at [facility]. It is possible the deformities and navicular fracture were pre-existing. Gout is possible but seems less likely. I don't believe she has an acute septic joint because of the multiple joint involvement. I recommended she get her [employer] walker from home for refitting. She needs to protect the foot and remain nonweightbearing, to prevent collapse and rocker bottom deformity. I recommend nonweightbearing for now with a knee walker. MILO ZHAO MD Nov 25, 2018 20:29
[2018-11-25] MEDS: ATORVASTATIN CALCIUM 40 MG TABLET. PO SCH (20:34)
[2018-11-25] MEDS: MONTELUKAST SODIUM 10 MG TABLET. PO SCH (20:34)
[2018-11-25] MEDS: INSULIN GLARGINE 300 UNITS/3 ML INSULN.PEN. SQ SCH (20:48)
[2018-11-25 23:02] VITALS: BP 137/61
[2018-11-25 23:08] LABS: HEMOGLOBIN A1C 7.3 % (4.8-5.6)
[2018-11-26] MEDS: fentaNYL PF VIAL 100 MCG/2 ML VIAL IV PRN ×4 (01:25→23:46)
[2018-11-26 03:12] VITALS: BP 118/56
[2018-11-26 04:56] LABS: BASO # 0.1 x10^3/uL (0.0-0.2); BASO % 1 % (0-3); EOS # 0.3 x10^3/uL (0.0-0.7); EOS % 3 % (0-3); HEMATOCRIT 26.9 % (36.0-47.0); HEMOGLOBIN 8.6 g/dL (12.0-15.5); LYMPH # 2.4 x10^3/uL (1.0-4.8); LYMPH % 22 % (24-48); MEAN CORPUSCULAR HEMOGLOBIN 28 pg (25-35); MEAN CORPUSCULAR HGB CONC 32 g/dL (31-37); MEAN CORPUSCULAR VOLUME 88 fL (79-100); MONO # 0.6 x10^3/uL (0.0-1.1); MONO % 6 % (0-9); NEUT # 7.7 x10^3/uL (1.8-7.7); NEUT % 69 % (31-73); PLATELET COUNT 270 x10^3/uL (140-400); RED BLOOD COUNT 3.04 x10^6/uL (3.50-5.40); RED CELL DISTRIBUTION WIDTH 18.8 % (11.5-14.5); WHITE BLOOD COUNT 11.1 x10^3/uL (4.0-11.0)
[2018-11-26] MEDS ORDERED: VANCOMYCIN RANDOM LEVEL. MC ONE (05:00)
[2018-11-26 05:21] LABS: CALCIUM 9.1 mg/dL (8.5-10.1)
[2018-11-26 05:22] LABS: CREATININE 2.9 mg/dL (0.6-1.0); GFR 16.9; POTASSIUM 3.7 mmol/L (3.5-5.1)
[2018-11-26] MEDS: PIPERACILLIN/TAZOBACTAM 2.25 GM in IV NORMAL SALINE 50ML 50 ML IV SCH ×6 (05:42→23:41)
[2018-11-26 07:00] VITALS: BP 139/77
[2018-11-26] MEDS: INSULIN LISPRO 300 UNITS/3 ML INSULN.PEN. SQ SCH ×3 (08:00→17:00)
[2018-11-26] MEDS: MULTIVITAMIN I-VITE TABLET. PO SCH (08:43)
[2018-11-26] MEDS: GABAPENTIN 300 MG CAPSULE. PO SCH ×2 (08:43→20:35)
[2018-11-26] MEDS: LINAGLIPTIN 5 MG TABLET PO SCH (08:43)
[2018-11-26] MEDS: BISACODYL 5 MG TABLET.DR. PO SCH (08:43)
[2018-11-26] MEDS: LACTOBACILLUS RHAMNOSUS GG 1 CAPSULE. PO SCH ×2 (08:43→20:36)
[2018-11-26] MEDS: ASPIRIN CHEWABLE 81 MG TABLET. PO SCH (08:43)
[2018-11-26] MEDS: FERROUS SULFATE 325 MG TABLET. PO SCH (08:43)
[2018-11-26] MEDS: DULoxetine HCL 30 MG CAPSULE.DR PO SCH ×2 (08:43→20:36)
[2018-11-26] MEDS: TORSEMIDE 20 MG TABLET. PO SCH ×2 (08:43→20:36)
[2018-11-26] MEDS: oxyCODONE/APAP 7.5/325 1 TAB TABLET PO PRN ×3 (08:47→23:45)
[2018-11-26] MEDS: IV NORMAL SALINE 1000ML BAG 1,000 ML IV SCH ×2 (09:15→22:35)
--- NOTE | 2018-11-26 10:49 | PDOC ---
Provider Note Provider Note spiked to 101, R foot pain same- cults neg, will add procal level- never had gout b4, urate only 7 , still infection most suspicious- cont vanc/VERNA Vale MD Nov 26, 2018 10:49
[2018-11-26 11:00] VITALS: BP 124/55
[2018-11-26] MEDS: ACETAMINOPHEN 325 MG TABLET. PO PRN (11:04)
[2018-11-26] MEDS: LIDOCAINE (700MG/PATCH) PATCH. TD SCH (11:05)
[2018-11-26] MEDS ORDERED: DEXTROSE 50% 25 GM / 50ML DISP.SYRIN. IV ONE (11:37)
--- NOTE | 2018-11-26 11:43 | PDOC ---
Renal-Progress Notes Subjective Notes Notes RIGHT FOOT PAIN History of Present Illness Hx of present illness STABLE Vitals Vitals Vital Signs Date Time Temp Pulse Resp B/P (MAP) Pulse Ox O2 Delivery O2 Flow Rate FiO2 11/26/18 11:00 99.2 93 18 124/55 (78) 95 Nasal Cannula 2.0 99.2 Weight Weight [ ] I.O. Intake and Output Intake and Output 11/26/18 07:00 Intake Total 120 ml Output Total 300 ml Balance -180 ml Intake Oral 120 ml Output Urine Total 300 ml # Voids 1 Labs Labs Laboratory Tests Test 11/25/18 15:00 11/25/18 17:01 11/25/18 20:26 11/26/18 03:40 Glucose (Fingerstick) 67 mg/dL (70-99) 181 mg/dL (70-99) 145 mg/dL (70-99) White Blood Count 11.1 x10^3/uL (4.0-11.0) Red Blood Count 3.04 x10^6/uL (3.50-5.40) Hemoglobin 8.6 g/dL (12.0-15.5) Hematocrit 26.9 % (36.0-47.0) Mean Corpuscular Volume 88 fL (79-100) Mean Corpuscular Hemoglobin 28 pg (25-35) Mean Corpuscular Hemoglobin Concent 32 g/dL (31-37) Red Cell Distribution Width 18.8 % (11.5-14.5) Platelet Count 270 x10^3/uL (140-400) Neutrophils (%) (Auto) 69 % (31-73) Lymphocytes (%) (Auto) 22 % (24-48) Monocytes (%) (Auto) 6 % (0-9) Eosinophils (%) (Auto) 3 % (0-3) Basophils (%) (Auto) 1 % (0-3) Neutrophils # (Auto) 7.7 x10^3/uL (1.8-7.7) Lymphocytes # (Auto) 2.4 x10^3/uL (1.0-4.8) Monocytes # (Auto) 0.6 x10^3/uL (0.0-1.1) Eosinophils # (Auto) 0.3 x10^3/uL (0.0-0.7) Basophils # (Auto) 0.1 x10^3/uL (0.0-0.2) Sodium Level 138 mmol/L (136-145) Potassium Level 3.7 mmol/L (3.5-5.1) Chloride Level 100 mmol/L (98-107) Carbon Dioxide Level 29 mmol/L (21-32) Anion Gap 9 (6-14) Blood Urea Nitrogen 41 mg/dL (7-20) Creatinine 2.9 mg/dL (0.6-1.0) Estimated GFR (Cockcroft-Gault) 16.9 Glucose Level 119 mg/dL (70-99) Calcium Level 9.1 mg/dL (8.5-10.1) Random Vancomycin Level 18.6 mcg/mL Test 11/26/18 07:13 11/26/18 11:34 Glucose (Fingerstick) 85 mg/dL (70-99) 42 mg/dL (70-99) Micro Micro Microbiology 11/24/18 Blood Culture - Preliminary, Resulted NO GROWTH AFTER 1 DAY Review of Systems Constitutional: yes: weakness, alert, oriented Ears/Nose/Throat: Yes: no symptom reported Eyes: Yes: no symptom reported Pulmonary: Yes no symptom reported Cardiovascular: Yes no symptom reported Gastrointestional: Yes: constipation Genitourinary: Yes: no symptom reported Musculoskeletal: Yes: joint pain Skin: Yes no symptom reported Psychiatric/Neurological: Yes: no symptom reported Endocrine: Yes: no symptom reported Physical Exam General Appearance: no apparent distress Skin: warm Respiratory: bilateral CTA Heart: S1S2 Abdomen: soft Genitourinary: bladder flat Extremities: pulses present Assessment Assessment IMP ESRD DM II ANEMIA HTN RIGHT FOOT PAIN RIGHT CHARCOT ANKLE PLAN START [facility] AND ID FOLLOWING HD MWF WILL FOLLOW CARTER PEREZ MD Nov 26, 2018 11:43
--- NOTE | 2018-11-26 12:31 | PDOC ---
Infectious Disease Note Subjective Subjective c/o right foot pain, rating 5 on scale of 0-10, down form level 6. Feels redness has improved but still swollen Fever 101.8 ROS ROS per HPI Vital Sign Vital Signs Vital Signs Date Time Temp Pulse Resp B/P (MAP) Pulse Ox O2 Delivery O2 Flow Rate FiO2 11/26/18 11:00 99.2 93 18 124/55 (78) 95 Nasal Cannula 2.0 99.2 Physical Exam PHYSICAL EXAM GENERAL: Propped up in bed, a;ert, eating HEENT: Pupils are equal and reactive with normal conjunctivae. Oral cavity, pharynx is clear. She has dentures. NECK: Supple, no JVD. LUNGS: Clear to auscultation. HEART: S1, S2. ABDOMEN: Morbidly obese, soft, nontender EXTREMITIES: No clubbing, cyanosis. Right foot has 1+ edema. Faint erythema on the dorsal aspect to the middle and lower third; tender Lidoderm patch in place NEUROLOGIC: Alert, answering questions appropriately Left chest dialysis catheter without signs of any complications. Labs Lab Laboratory Tests Test 11/25/18 15:00 11/25/18 17:01 11/25/18 20:26 11/26/18 03:40 Glucose (Fingerstick) 67 mg/dL (70-99) 181 mg/dL (70-99) 145 mg/dL (70-99) White Blood Count 11.1 x10^3/uL (4.0-11.0) Red Blood Count 3.04 x10^6/uL (3.50-5.40) Hemoglobin 8.6 g/dL (12.0-15.5) Hematocrit 26.9 % (36.0-47.0) Mean Corpuscular Volume 88 fL (79-100) Mean Corpuscular Hemoglobin 28 pg (25-35) Mean Corpuscular Hemoglobin Concent 32 g/dL (31-37) Red Cell Distribution Width 18.8 % (11.5-14.5) Platelet Count 270 x10^3/uL (140-400) Neutrophils (%) (Auto) 69 % (31-73) Lymphocytes (%) (Auto) 22 % (24-48) Monocytes (%) (Auto) 6 % (0-9) Eosinophils (%) (Auto) 3 % (0-3) Basophils (%) (Auto) 1 % (0-3) Neutrophils # (Auto) 7.7 x10^3/uL (1.8-7.7) Lymphocytes # (Auto) 2.4 x10^3/uL (1.0-4.8) Monocytes # (Auto) 0.6 x10^3/uL (0.0-1.1) Eosinophils # (Auto) 0.3 x10^3/uL (0.0-0.7) Basophils # (Auto) 0.1 x10^3/uL (0.0-0.2) Sodium Level 138 mmol/L (136-145) Potassium Level 3.7 mmol/L (3.5-5.1) Chloride Level 100 mmol/L (98-107) Carbon Dioxide Level 29 mmol/L (21-32) Anion Gap 9 (6-14) Blood Urea Nitrogen 41 mg/dL (7-20) Creatinine 2.9 mg/dL (0.6-1.0) Estimated GFR (Cockcroft-Gault) 16.9 Glucose Level 119 mg/dL (70-99) Calcium Level 9.1 mg/dL (8.5-10.1) Procalcitonin 0.74 ng/mL (0.00-0.10) Random Vancomycin Level 18.6 mcg/mL Test 11/26/18 07:13 11/26/18 11:34 11/26/18 11:59 Glucose (Fingerstick) 85 mg/dL (70-99) 42 mg/dL (70-99) 63 mg/dL (70-99) Micro Microbiology 11/24/18 Blood Culture - Preliminary, Resulted NO GROWTH AFTER 1 DAY Objective Assessment Fever. Procalcitoin 0.74 Right foot swelling, pain was sudden onset. No trauma. ESR 104. uric acid 7.4 Chronic kidney disease, on hemodialysis. Morbid obesity. Diabetes Plan Plan of Care MRI foot - unusual for Osteomyelitis without wound or trauma and a sudden onset Continue Vanc and Zosyn BC neg so far Attending Co-Sign The patient was seen and interviewed as well as examined at the bedside. The chart was reviewed. The case was discussed. Agree with the plan of care. CAROL WAGNER APRN Nov 26, 2018 12:31 KRISTEN ALBERT MD Nov 26, 2018 12:35
[2018-11-26] MEDS: VANCOMYCIN PER PHARMACY MC PRN (12:55)
[2018-11-26 15:00] VITALS: BP 123/51
[2018-11-26 19:00] VITALS: BP 156/70
[2018-11-26] MEDS: MONTELUKAST SODIUM 10 MG TABLET. PO SCH (20:36)
[2018-11-26] MEDS: ATORVASTATIN CALCIUM 40 MG TABLET. PO SCH (20:36)
[2018-11-26] MEDS: INSULIN GLARGINE 300 UNITS/3 ML INSULN.PEN. SQ SCH (20:42)
[2018-11-26] MEDS: PATCH REMOVAL. MC SCH (20:59)
[2018-11-26 23:04] VITALS: BP 174/78
[2018-11-27 03:09] VITALS: BP 195/91
[2018-11-27] MEDS: PIPERACILLIN/TAZOBACTAM 2.25 GM in IV NORMAL SALINE 50ML 50 ML IV SCH ×3 (05:36→21:58)
[2018-11-27 07:00] VITALS: BP 145/60
[2018-11-27] MEDS: INSULIN LISPRO 300 UNITS/3 ML INSULN.PEN. SQ SCH ×3 (08:12→17:11)
[2018-11-27] MEDS: GABAPENTIN 300 MG CAPSULE. PO SCH ×2 (08:51→21:58)
[2018-11-27] MEDS: TORSEMIDE 20 MG TABLET. PO SCH ×2 (08:51→21:58)
[2018-11-27] MEDS: BISACODYL 5 MG TABLET.DR. PO SCH (08:51)
[2018-11-27] MEDS: DULoxetine HCL 30 MG CAPSULE.DR PO SCH ×2 (08:52→21:58)
[2018-11-27] MEDS: LINAGLIPTIN 5 MG TABLET PO SCH (08:52)
[2018-11-27] MEDS: ACETAMINOPHEN 325 MG TABLET. PO PRN ×2 (08:52→20:19)
[2018-11-27] MEDS: MULTIVITAMIN I-VITE TABLET. PO SCH (08:52)
[2018-11-27] MEDS: LACTOBACILLUS RHAMNOSUS GG 1 CAPSULE. PO SCH ×2 (08:52→21:57)
[2018-11-27] MEDS: ASPIRIN CHEWABLE 81 MG TABLET. PO SCH (08:52)
[2018-11-27] MEDS: FERROUS SULFATE 325 MG TABLET. PO SCH (08:52)
[2018-11-27] MEDS: LIDOCAINE (700MG/PATCH) PATCH. TD SCH (08:53)
--- NOTE | 2018-11-27 09:42 | PDOC ---
Provider Note Provider Note still same R foot pain , lido helps a little- less temp but still 100- procalcitonin up- feel iv antibiotics still indicated re same reasons- she agrees- lower humalog re glucose VERNA GARCIA MD Nov 27, 2018 09:42
--- NOTE | 2018-11-27 10:54 | PDOC ---
Renal-Progress Notes Subjective Notes Notes NO NEW COMPLAINTS History of Present Illness Hx of present illness STABLE Vitals Vitals Vital Signs Date Time Temp Pulse Resp B/P (MAP) Pulse Ox O2 Delivery O2 Flow Rate FiO2 11/27/18 07:30 Nasal Cannula 2.5 11/27/18 07:00 100.4 120 16 145/60 (88) 90 100.4 Weight Weight [ ] I.O. Intake and Output Intake and Output 11/27/18 06:59 Intake Total 50 ml Output Total 300 ml Balance -250 ml IV Total 50 ml Output Urine Total 300 ml # Voids 2 Labs Labs Laboratory Tests Test 11/26/18 11:34 11/26/18 11:59 11/26/18 16:50 11/26/18 20:15 Glucose (Fingerstick) 42 mg/dL (70-99) 63 mg/dL (70-99) 101 mg/dL (70-99) 99 mg/dL (70-99) Test 11/26/18 23:53 11/27/18 07:49 Glucose (Fingerstick) 130 mg/dL (70-99) 187 mg/dL (70-99) Micro Micro Microbiology 11/24/18 Blood Culture - Preliminary, Resulted NO GROWTH AFTER 2 DAYS Review of Systems Constitutional: yes: weakness, alert, oriented Ears/Nose/Throat: Yes: no symptom reported Eyes: Yes: no symptom reported Pulmonary: Yes no symptom reported Cardiovascular: Yes no symptom reported Gastrointestional: Yes: constipation Genitourinary: Yes: no symptom reported Musculoskeletal: Yes: joint pain Skin: Yes no symptom reported Psychiatric/Neurological: Yes: no symptom reported Endocrine: Yes: no symptom reported Physical Exam General Appearance: no apparent distress Skin: warm Respiratory: bilateral CTA Heart: S1S2 Abdomen: soft Genitourinary: bladder flat Extremities: pulses present Assessment Assessment IMP ESRD DM II ANEMIA HTN RIGHT FOOT PAIN RIGHT CHARCOT ANKLE PLAN ON [facility] AND ID FOLLOWING HD MWF WILL FOLLOW CARTER PEREZ MD Nov 27, 2018 10:53
[2018-11-27 11:00] VITALS: BP 111/57
--- NOTE | 2018-11-27 12:45 | PDOC ---
Infectious Disease Note Subjective Subjective c/o right foot pain little better, aggravated by wt bearing Still swollen Fever Tmax 100.4 Vital Sign Vital Signs Vital Signs Date Time Temp Pulse Resp B/P (MAP) Pulse Ox O2 Delivery O2 Flow Rate FiO2 11/27/18 11:00 98.8 96 16 111/57 (75) 93 Nasal Cannula 98.8 11/27/18 07:30 2.5 Physical Exam PHYSICAL EXAM GENERAL: Propped up in bed, alert, NAD HEENT: Oral cavity, pharynx is clear. She has dentures. NECK: Supple, no JVD. LUNGS: Clear to auscultation. HEART: S1, S2. ABDOMEN: Morbidly obese, soft, nontender EXTREMITIES: No clubbing, cyanosis. Right foot has 1+ edema. tender. No redness NEUROLOGIC: Alert, answering questions appropriately Left chest dialysis catheter without signs of any complications. Labs Lab Laboratory Tests Test 11/26/18 16:50 11/26/18 20:15 11/26/18 23:53 11/27/18 07:49 Glucose (Fingerstick) 101 mg/dL (70-99) 99 mg/dL (70-99) 130 mg/dL (70-99) 187 mg/dL (70-99) Test 11/27/18 11:47 Glucose (Fingerstick) 131 mg/dL (70-99) MRI 1. Above findings suggest neuropathic joints or osteomyelitis. Differentiation is difficult. However no obvious focal fluid collection in the soft tissue to suggest an abscess or ulcer. Clinical correlation for elevated WBC and fever is suggested. Consider triphasic bone scan. CT of the foot is recommended for better evaluation of bones as it is motion artifact on the MRI images. Micro Microbiology 11/24/18 Blood Culture - Preliminary, Resulted NO GROWTH AFTER 2 DAY Objective Assessment Fever. Procalcitoin 0.74 Right foot swelling, pain was sudden onset. No trauma. ESR 104. uric acid 7.4 Chronic kidney disease, on hemodialysis. Morbid obesity. Diabetes Plan Plan of Care MRI foot - unusual for Osteomyelitis without wound or trauma and a sudden onset Continue Vanc and Zosyn BC neg so far Pt seen and examined case discussed agree with above A/P CAROL WAGNER APRN Nov 27, 2018 12:45 STANTON ALBERT MD Nov 27, 2018 15:19
[2018-11-27 15:19] VITALS: BP 168/69
[2018-11-27 19:00] VITALS: BP 157/70
[2018-11-27] MEDS: DARBEPOETIN ALFA 60 MCG/0.3 ML DISP.SYRIN. SQ SCH ×2 (21:00→21:59)
[2018-11-27] MEDS: PATCH REMOVAL. MC SCH (21:00)
[2018-11-27] MEDS: ATORVASTATIN CALCIUM 40 MG TABLET. PO SCH (21:58)
[2018-11-27] MEDS: MONTELUKAST SODIUM 10 MG TABLET. PO SCH (21:58)
[2018-11-27] MEDS: INSULIN GLARGINE 300 UNITS/3 ML INSULN.PEN. SQ SCH (22:07)
[2018-11-27 23:00] VITALS: BP 146/62
[2018-11-28 03:20] VITALS: BP 152/65
[2018-11-28] MEDS: PIPERACILLIN/TAZOBACTAM 2.25 GM in IV NORMAL SALINE 50ML 50 ML IV SCH ×3 (06:01→22:09)
[2018-11-28 07:00] VITALS: BP 138/58
[2018-11-28] MEDS: INSULIN LISPRO 300 UNITS/3 ML INSULN.PEN. SQ SCH ×3 (08:24→17:08)
--- NOTE | 2018-11-28 08:44 | PDOC ---
Provider Note Provider Note last temp 24 hrs ago, pain same- cbc pending re anemia- cults neg- in dialysis/asleep now- cont same plan- glucose control good- NEEDS TO BE IN HOSPITAL VERNA GARCIA MD Nov 28, 2018 08:44
--- NOTE | 2018-11-28 10:33 | PDOC ---
Infectious Disease Note Subjective: Subjective pt seen in dialysis unit c/o right foot pain little better, aggravated by wt bearing or any major movement redness has improved Still swollen ROS: ROS Negative except for above. Vital Signs: Vital Signs Vital Signs Date Time Temp Pulse Resp B/P (MAP) Pulse Ox O2 Delivery O2 Flow Rate FiO2 11/28/18 07:00 98.0 87 18 138/58 (84) 96 Nasal Cannula 2.0 98.0 Physical Exam: PHYSICAL EXAM GENERAL: Propped up in bed, alert, NAD HEENT: Oral cavity, pharynx is clear. She has dentures. NECK: Supple, no JVD. LUNGS: Clear to auscultation. HEART: S1, S2. ABDOMEN: Morbidly obese, soft, nontender EXTREMITIES: No clubbing, cyanosis. Right foot has 1+ edema. tender. No redness NEUROLOGIC: Alert, answering questions appropriately Left chest dialysis catheter without signs of any complications. Medications: Inpatient Meds: Current Medications Medications (Trade) Dose Ordered Sig/Mya Start Time Stop Time Status Last Admin Dose Admin Acetaminophen (Tylenol) 975 mg PRN TID PRN 11/27/18 20:15 11/27/18 20:19 975 MG Acetaminophen/ Hydrocodone Bitart (Lortab 7.5/325) 1 tab PRN Q4HRS PRN 11/24/18 17:15 11/25/18 09:03 DC 11/25/18 05:06 1 TAB Aspirin (Children'S Aspirin) 81 mg DAILY 11/25/18 09:00 11/27/18 08:52 81 MG Atorvastatin Calcium (Lipitor) 40 mg QHS 11/24/18 21:00 11/27/18 21:58 40 MG Bisacodyl (Dulcolax Tab) 5 mg DAILY 11/25/18 09:00 11/27/18 08:51 5 MG Darbepoetin Deepak (ARANESP for DIALYSIS PTS) 60 mcg WEEKLYHS 11/27/18 21:00 Dextrose (Dextrose 50%-Water Syringe) 25 gm STK-MED ONCE 11/26/18 11:37 11/26/18 11:38 DC Diphenhydramine HCl (Benadryl) 25 mg 1X PRN PRN 11/25/18 11:45 11/26/18 11:44 DC Duloxetine HCl (Cymbalta) 30 mg BID 11/24/18 21:00 11/27/18 21:58 30 MG Fentanyl Citrate (Fentanyl 2ml Vial) 75 mcg PRN Q2HR PRN 11/25/18 09:15 11/26/18 23:46 75 MCG Ferrous Sulfate (Feosol) 325 mg DAILY 11/25/18 09:00 11/27/18 08:52 325 MG Gabapentin (Neurontin) 600 mg QHS 11/24/18 21:00 11/27/18 21:58 600 MG Info (PHARMACY MONITORING -- do not chart) 1 each PRN DAILY PRN 11/25/18 11:45 Insulin Glargine (Lantus) 75 units QHS 11/24/18 21:00 11/27/18 22:07 75 UNITS Insulin Human Lispro (HumaLOG) 15 units TIDAC 11/26/18 11:30 11/28/18 08:24 15 UNITS Lactobacillus Rhamnosus (Culturelle) 1 cap BID 11/25/18 09:00 11/27/18 21:57 1 CAP Lidocaine (Lidoderm) 1 patch DAILY 11/26/18 11:00 11/27/18 08:53 1 PATCH Linagliptin (Tradjenta) 5 mg DAILY 11/25/18 09:00 11/27/18 08:52 5 MG Miscellaneous (Lidoderm Patch Removal) 1 ea QHS 11/26/18 21:00 11/27/18 21:00 1 EA Montelukast Sodium (Singulair) 10 mg HS 11/24/18 21:00 11/27/18 21:58 10 MG Multivitamins/ Minerals (I-Jalen) 1 tab DAILY 11/25/18 09:00 11/27/18 08:52 1 TAB Non-Formulary Medication (Turmeric/ Turmeric Root Extract (Turmeric 500 mg Capsule)) 1 each DAILY 11/25/18 09:00 UNV Oxycodone/ Acetaminophen (Percocet 7.5/ 325) 1 tab PRN Q4HRS PRN 11/25/18 09:15 11/26/18 23:45 1 TAB Piperacillin Sod/ Tazobactam Sod 2.25 gm/Sodium Chloride 50 ml @ 100 mls/hr Q8HRS 11/27/18 06:00 11/28/18 06:01 100 MLS/HR Piperacillin Sod/ Tazobactam Sod 4.5 gm/Sodium Chloride 100 ml @ 200 mls/hr Q6HRS 11/24/18 18:00 11/24/18 19:15 DC Sodium Chloride 1,000 ml @ 400 mls/hr Q2H30M PRN 11/25/18 11:37 11/25/18 23:36 DC Torsemide (Demadex) 20 mg DAILY 11/25/18 09:00 11/27/18 08:51 20 MG Vancomycin HCl (Vanco Per Pharmacy) 1 each PRN DAILY PRN 11/24/18 17:15 11/26/18 12:55 1 EACH Vancomycin HCl (Vancomycin Random Level) 1 each 1X ONCE 11/26/18 05:00 11/26/18 05:01 DC 11/26/18 05:00 1 EACH Vancomycin HCl 500 mg/Sodium Chloride 100 ml @ 100 mls/hr QMWF 11/28/18 16:00 Vancomycin HCl 2 gm/Sodium Chloride 500 ml @ 250 mls/hr 1X ONCE 11/24/18 19:00 11/24/18 20:59 DC 11/24/18 21:09 250 MLS/HR Labs: Lab Laboratory Tests Test 11/27/18 11:47 11/27/18 16:47 11/27/18 20:26 11/28/18 07:33 Glucose (Fingerstick) 131 mg/dL (70-99) 102 mg/dL (70-99) 207 mg/dL (70-99) 134 mg/dL (70-99) Micro BC neg Objective: Assessment: Fever. Procalcitoin 0.74 Right foot swelling, pain was sudden onset. No trauma. ESR 104. uric acid 7.4 Chronic kidney disease, on hemodialysis. Morbid obesity. Diabetes Plan: Plan of Care MRI foot - unusual for Osteomyelitis without wound or trauma and a sudden onset Continue Vanc and Zosyn BC neg so far Elevate leg STANTON ALBERT MD Nov 28, 2018 10:33
--- NOTE | 2018-11-28 11:07 | PDOC ---
Renal-Progress Notes Subjective Notes Notes NONE History of Present Illness Hx of present illness STABLE Vitals Vitals Vital Signs Date Time Temp Pulse Resp B/P (MAP) Pulse Ox O2 Delivery O2 Flow Rate FiO2 11/28/18 07:00 98.0 87 18 138/58 (84) 96 Nasal Cannula 2.0 98.0 Weight Weight [ ] I.O. Intake and Output Intake and Output 11/28/18 07:00 Intake Total 1010 ml Output Total 900 ml Balance 110 ml Intake Oral 960 ml IV Total 50 ml Output Urine Total 400 ml Urine/Stool Mix 500 ml # Bowel Movements 1 Labs Labs Laboratory Tests Test 11/27/18 11:47 11/27/18 16:47 11/27/18 20:26 11/28/18 07:33 Glucose (Fingerstick) 131 mg/dL (70-99) 102 mg/dL (70-99) 207 mg/dL (70-99) 134 mg/dL (70-99) Micro Micro Microbiology 11/24/18 Blood Culture - Preliminary, Resulted NO GROWTH AFTER 3 DAYS Review of Systems Constitutional: yes: weakness, alert, oriented Ears/Nose/Throat: Yes: no symptom reported Eyes: Yes: no symptom reported Pulmonary: Yes no symptom reported Cardiovascular: Yes no symptom reported Gastrointestional: Yes: constipation Genitourinary: Yes: no symptom reported Musculoskeletal: Yes: joint pain Skin: Yes no symptom reported Psychiatric/Neurological: Yes: no symptom reported Endocrine: Yes: no symptom reported Physical Exam General Appearance: no apparent distress Skin: warm Respiratory: bilateral CTA Heart: S1S2 Abdomen: soft Genitourinary: bladder flat Extremities: pulses present Assessment Assessment IMP ESRD DM II ANEMIA HTN RIGHT FOOT PAIN RIGHT CHARCOT ANKLE PLAN ON [facility] AND ID FOLLOWING HD TODAY UF TO DW WILL FOLLOW CARTER PEREZ MD Nov 28, 2018 11:07
[2018-11-28] MEDS: VANCOMYCIN PER PHARMACY MC PRN (12:45)
[2018-11-28 13:00] VITALS: BP 136/76
[2018-11-28] MEDS: TORSEMIDE 20 MG TABLET. PO SCH ×2 (13:07→21:00)
[2018-11-28] MEDS: LINAGLIPTIN 5 MG TABLET PO SCH (13:07)
[2018-11-28] MEDS: FERROUS SULFATE 325 MG TABLET. PO SCH (13:07)
[2018-11-28] MEDS: LACTOBACILLUS RHAMNOSUS GG 1 CAPSULE. PO SCH ×2 (13:07→21:00)
[2018-11-28] MEDS: DULoxetine HCL 30 MG CAPSULE.DR PO SCH ×2 (13:07→21:00)
[2018-11-28] MEDS: ASPIRIN CHEWABLE 81 MG TABLET. PO SCH (13:08)
[2018-11-28] MEDS: BISACODYL 5 MG TABLET.DR. PO SCH (13:08)
[2018-11-28] MEDS: GABAPENTIN 300 MG CAPSULE. PO SCH ×2 (13:08→21:00)
[2018-11-28] MEDS: LIDOCAINE (700MG/PATCH) PATCH. TD SCH (13:09)
[2018-11-28] MEDS: MULTIVITAMIN I-VITE TABLET. PO SCH (13:11)
[2018-11-28] MEDS: ACETAMINOPHEN 325 MG TABLET. PO PRN (13:19)
[2018-11-28 15:05] VITALS: BP 149/63
[2018-11-28] MEDS: VANCOMYCIN 500 MG in IV NORMAL SALINE 100ML 100 ML IV SCH (17:01)
[2018-11-28] MEDS: oxyCODONE/APAP 7.5/325 1 TAB TABLET PO PRN ×2 (17:02→21:16)
[2018-11-28 18:01] LABS: HEMATOCRIT 27.1 % (36.0-47.0); HEMOGLOBIN 8.9 g/dL (12.0-15.5); RED BLOOD COUNT 3.12 x10^6/uL (3.50-5.40); RED CELL DISTRIBUTION WIDTH 18.1 % (11.5-14.5)
[2018-11-28 18:12] LABS: CALCIUM 9.1 mg/dL (8.5-10.1); CREATININE 2.3 mg/dL (0.6-1.0); GFR 22.1; POTASSIUM 3.2 mmol/L (3.5-5.1)
[2018-11-28 19:00] VITALS: BP 120/50
[2018-11-28] MEDS: fentaNYL PF VIAL 100 MCG/2 ML VIAL IV PRN ×2 (19:16→23:53)
[2018-11-28] MEDS: PATCH REMOVAL. MC SCH (21:00)
[2018-11-28] MEDS: ATORVASTATIN CALCIUM 40 MG TABLET. PO SCH (21:00)
[2018-11-28] MEDS: MONTELUKAST SODIUM 10 MG TABLET. PO SCH (21:01)
[2018-11-28] MEDS: INSULIN GLARGINE 300 UNITS/3 ML INSULN.PEN. SQ SCH (21:07)
[2018-11-28 23:00] VITALS: BP 146/61
[2018-11-29 03:00] VITALS: BP 115/58
[2018-11-29] MEDS: oxyCODONE/APAP 7.5/325 1 TAB TABLET PO PRN ×2 (03:14→16:05)
[2018-11-29] MEDS: PIPERACILLIN/TAZOBACTAM 2.25 GM in IV NORMAL SALINE 50ML 50 ML IV SCH ×3 (05:57→22:03)
[2018-11-29] MEDS: fentaNYL PF VIAL 100 MCG/2 ML VIAL IV PRN ×2 (06:47→21:46)
[2018-11-29 07:00] VITALS: BP 105/53
--- NOTE | 2018-11-29 08:39 | PDOC ---
Provider Note Provider Note no more temp, vss, cults neg- pain still same, tenderness same-, warmth same, ankle joint ok- cont same iv meds, NEEDS TO BE IN HOSPITAL VERNA GARCIA MD Nov 29, 2018 08:39
[2018-11-29] MEDS: LIDOCAINE (700MG/PATCH) PATCH. TD SCH (09:00)
--- NOTE | 2018-11-29 09:07 | PDOC ---
Infectious Disease Note Subjective Subjective right foot pain little better No fevers last 24 hours Denies N/V/D Vital Sign Vital Signs Vital Signs Date Time Temp Pulse Resp B/P (MAP) Pulse Ox O2 Delivery O2 Flow Rate FiO2 11/29/18 07:11 Nasal Cannula 2.0 11/29/18 07:00 97.8 80 18 105/53 (70) 92 97.8 Physical Exam PHYSICAL EXAM GENERAL: Propped up in bed, alert, NAD HEENT: Oral cavity, pharynx is clear. Dentures. NECK: Supple, no JVD. LUNGS: Clear to auscultation. HEART: S1, S2. ABDOMEN: Morbidly obese, soft, nontender EXTREMITIES: No clubbing, cyanosis. Right wood milling machine tender, less swollen, + wr inkling. No redness NEUROLOGIC: Alert, answering questions appropriately Left chest dialysis catheter without signs of any complications. Labs Lab Laboratory Tests Test 11/28/18 13:07 11/28/18 17:07 11/28/18 17:50 11/28/18 20:41 Glucose (Fingerstick) 108 mg/dL (70-99) 186 mg/dL (70-99) 98 mg/dL (70-99) White Blood Count 9.0 x10^3/uL (4.0-11.0) Red Blood Count 3.12 x10^6/uL (3.50-5.40) Hemoglobin 8.9 g/dL (12.0-15.5) Hematocrit 27.1 % (36.0-47.0) Mean Corpuscular Volume 87 fL (79-100) Mean Corpuscular Hemoglobin 28 pg (25-35) Mean Corpuscular Hemoglobin Concent 33 g/dL (31-37) Red Cell Distribution Width 18.1 % (11.5-14.5) Platelet Count 313 x10^3/uL (140-400) Sodium Level 139 mmol/L (136-145) Potassium Level 3.2 mmol/L (3.5-5.1) Chloride Level 99 mmol/L (98-107) Carbon Dioxide Level 31 mmol/L (21-32) Anion Gap 9 (6-14) Blood Urea Nitrogen 25 mg/dL (7-20) Creatinine 2.3 mg/dL (0.6-1.0) Estimated GFR (Cockcroft-Gault) 22.1 Glucose Level 165 mg/dL (70-99) Calcium Level 9.1 mg/dL (8.5-10.1) Test 11/29/18 07:27 Glucose (Fingerstick) 105 mg/dL (70-99) Micro Microbiology 11/24/18 Blood Culture - Preliminary, Resulted NO GROWTH AFTER 4 DAY Objective Assessment Fever. Procalcitonin 0.74 Right foot swelling, pain was sudden onset. No trauma. ESR 104. uric acid 7.4, slowly improving Chronic kidney disease, on hemodialysis. Morbid obesity. Diabetes Plan Plan of Care MRI foot - unusual for Osteomyelitis without wound or trauma and a sudden onset Continue Vanc and Zosyn Trough 18.6 BC neg so far Elevate leg Attending Co-Sign The patient was seen and interviewed as well as examined at the bedside. The chart was reviewed. The case was discussed. Agree with the plan of care. foot pain is better, boot is pending in detail discussion done with pt about her MRI and x ray findings, Less likely pt has infection, since there are no open wounds, but cannot 100 % rule out, pt does not want to take any chances, wants to be treated aggressively Hopefully we can treat her with iv through HD pt was explained , Charcot deformity will cont to get worse and eventually may even lose the foot. CAROL WAGNER APRN Nov 29, 2018 09:07 KRISTEN ALBERT MD Nov 29, 2018 10:57
[2018-11-29] MEDS: LINAGLIPTIN 5 MG TABLET PO SCH (09:17)
[2018-11-29] MEDS: LACTOBACILLUS RHAMNOSUS GG 1 CAPSULE. PO SCH ×2 (09:17→21:35)
[2018-11-29] MEDS: MULTIVITAMIN I-VITE TABLET. PO SCH (09:17)
[2018-11-29] MEDS: ASPIRIN CHEWABLE 81 MG TABLET. PO SCH (09:17)
[2018-11-29] MEDS: GABAPENTIN 300 MG CAPSULE. PO SCH ×2 (09:17→21:35)
[2018-11-29] MEDS: FERROUS SULFATE 325 MG TABLET. PO SCH (09:17)
[2018-11-29] MEDS: DULoxetine HCL 30 MG CAPSULE.DR PO SCH ×2 (09:17→21:34)
[2018-11-29] MEDS: TORSEMIDE 20 MG TABLET. PO SCH ×2 (09:18→21:35)
[2018-11-29] MEDS: INSULIN LISPRO 300 UNITS/3 ML INSULN.PEN. SQ SCH ×3 (09:34→17:18)
[2018-11-29] MEDS: BISACODYL 5 MG TABLET.DR. PO SCH (09:37)
[2018-11-29 11:00] VITALS: BP 130/55
--- NOTE | 2018-11-29 12:01 | PDOC ---
Renal-Progress Notes Subjective Notes Notes STILL HAS PAIN History of Present Illness Hx of present illness STABLE Vitals Vitals Vital Signs Date Time Temp Pulse Resp B/P (MAP) Pulse Ox O2 Delivery O2 Flow Rate FiO2 11/29/18 11:00 97.6 77 18 130/55 (80) 97 Nasal Cannula 2.0 97.6 Weight Weight [ ] I.O. Intake and Output Intake and Output 11/29/18 06:59 Intake Total 910 ml Output Total 701 ml Balance 209 ml Intake Oral 860 ml IV Total 50 ml Output Urine Total 700 ml Stool Total 1 ml # Bowel Movements 3 Labs Labs Laboratory Tests Test 11/28/18 13:07 11/28/18 17:07 11/28/18 17:50 11/28/18 20:41 Glucose (Fingerstick) 108 mg/dL (70-99) 186 mg/dL (70-99) 98 mg/dL (70-99) White Blood Count 9.0 x10^3/uL (4.0-11.0) Red Blood Count 3.12 x10^6/uL (3.50-5.40) Hemoglobin 8.9 g/dL (12.0-15.5) Hematocrit 27.1 % (36.0-47.0) Mean Corpuscular Volume 87 fL (79-100) Mean Corpuscular Hemoglobin 28 pg (25-35) Mean Corpuscular Hemoglobin Concent 33 g/dL (31-37) Red Cell Distribution Width 18.1 % (11.5-14.5) Platelet Count 313 x10^3/uL (140-400) Sodium Level 139 mmol/L (136-145) Potassium Level 3.2 mmol/L (3.5-5.1) Chloride Level 99 mmol/L (98-107) Carbon Dioxide Level 31 mmol/L (21-32) Anion Gap 9 (6-14) Blood Urea Nitrogen 25 mg/dL (7-20) Creatinine 2.3 mg/dL (0.6-1.0) Estimated GFR (Cockcroft-Gault) 22.1 Glucose Level 165 mg/dL (70-99) Calcium Level 9.1 mg/dL (8.5-10.1) Test 11/29/18 07:27 11/29/18 11:24 Glucose (Fingerstick) 105 mg/dL (70-99) 140 mg/dL (70-99) Micro Micro Microbiology 11/24/18 Blood Culture - Preliminary, Resulted NO GROWTH AFTER 4 DAYS Review of Systems Constitutional: yes: weakness, alert, oriented Ears/Nose/Throat: Yes: no symptom reported Eyes: Yes: no symptom reported Pulmonary: Yes no symptom reported Cardiovascular: Yes no symptom reported Gastrointestional: Yes: constipation Genitourinary: Yes: no symptom reported Musculoskeletal: Yes: joint pain Skin: Yes no symptom reported Psychiatric/Neurological: Yes: no symptom reported Endocrine: Yes: no symptom reported Physical Exam General Appearance: no apparent distress Skin: warm Respiratory: bilateral CTA Heart: S1S2 Abdomen: soft Genitourinary: bladder flat Extremities: pulses present Assessment Assessment IMP ESRD DM II ANEMIA HTN RIGHT FOOT PAIN RIGHT CHARCOT ANKLE PLAN ON [facility] AND ID FOLLOWING HD TOMORROW WILL FOLLOW CARTER PEREZ MD Nov 29, 2018 12:01
[2018-11-29] MEDS: VANCOMYCIN PER PHARMACY MC PRN (13:37)
[2018-11-29 15:00] VITALS: BP 139/73
[2018-11-29 19:00] VITALS: BP 117/46
[2018-11-29] MEDS: PATCH REMOVAL. MC SCH (21:00)
[2018-11-29] MEDS: MONTELUKAST SODIUM 10 MG TABLET. PO SCH (21:34)
[2018-11-29] MEDS: ATORVASTATIN CALCIUM 40 MG TABLET. PO SCH (21:35)
[2018-11-29] MEDS: INSULIN GLARGINE 300 UNITS/3 ML INSULN.PEN. SQ SCH (21:42)
[2018-11-29 23:00] VITALS: BP 123/60
[2018-11-30 03:00] VITALS: BP 148/79
[2018-11-30] MEDS: oxyCODONE/APAP 7.5/325 1 TAB TABLET PO PRN ×2 (03:25→16:47)
[2018-11-30] MEDS: PIPERACILLIN/TAZOBACTAM 2.25 GM in IV NORMAL SALINE 50ML 50 ML IV SCH ×3 (05:58→22:35)
[2018-11-30 07:00] VITALS: BP 126/62
[2018-11-30] MEDS: INSULIN LISPRO 300 UNITS/3 ML INSULN.PEN. SQ SCH ×3 (07:30→16:30)
[2018-11-30] MEDS: fentaNYL PF VIAL 100 MCG/2 ML VIAL IV PRN ×2 (08:35→21:32)
--- NOTE | 2018-11-30 08:55 | PDOC ---
Infectious Disease Note Subjective Subjective right foot pain little better No fevers last 24 hours Denies N/V/D Vital Sign Vital Signs Vital Signs Date Time Temp Pulse Resp B/P (MAP) Pulse Ox O2 Delivery O2 Flow Rate FiO2 11/30/18 08:35 16 93 Nasal Cannula 2.0 11/30/18 07:00 98.0 87 126/62 (83) 98.0 Physical Exam PHYSICAL EXAM GENERAL: Propped up in bed, alert, NAD HEENT: Oral cavity, pharynx is clear. Dentures. NECK: Supple, no JVD. LUNGS: Clear to auscultation. HEART: S1, S2. ABDOMEN: Morbidly obese, soft, nontender EXTREMITIES: No clubbing, cyanosis. Right opener tender, less swollen, bruised NEUROLOGIC: Alert, answering questions appropriately Left chest dialysis catheter without signs of any complications. Labs Lab Laboratory Tests Test 11/29/18 11:24 11/29/18 16:46 11/29/18 20:19 11/29/18 21:34 Glucose (Fingerstick) 140 mg/dL (70-99) 117 mg/dL (70-99) 114 mg/dL (70-99) 133 mg/dL (70-99) Test 11/30/18 07:45 Glucose (Fingerstick) 124 mg/dL (70-99) Micro Microbiology 11/24/18 Blood Culture - Preliminary, Resulted NO GROWTH AFTER 4 DAY Objective Assessment Fever. Procalcitonin 0.74 Right foot swelling, pain was sudden onset. -MRI demo neuropathic joints or osteomyelitis. -No trauma or open wounds. - ESR 104. uric acid 7.4. BC neg Chronic kidney disease, on hemodialysis. Morbid obesity. Diabetes Plan Plan of Care MRI foot - unusual for Osteomyelitis without wound or trauma and a sudden onset Continue Vanc and Zosyn for now Trough 18.6 Plan 6 weeks of IV therapy with dialysis. Attending Co-Sign The patient was seen and interviewed as well as examined at the bedside. The chart was reviewed. The case was discussed. Agree with the plan of care. CAROL WAGNER APRN Nov 30, 2018 08:55 KRISTEN ALBERT MD Nov 30, 2018 09:42
[2018-11-30] MEDS: DULoxetine HCL 30 MG CAPSULE.DR PO SCH ×2 (09:00→21:29)
[2018-11-30] MEDS: TORSEMIDE 20 MG TABLET. PO SCH ×2 (09:00→21:33)
[2018-11-30] MEDS: GABAPENTIN 300 MG CAPSULE. PO SCH ×2 (09:00→21:29)
[2018-11-30] MEDS: BISACODYL 5 MG TABLET.DR. PO SCH (09:00)
[2018-11-30] MEDS: LIDOCAINE (700MG/PATCH) PATCH. TD SCH (09:00)
[2018-11-30] MEDS: FERROUS SULFATE 325 MG TABLET. PO SCH (09:00)
[2018-11-30] MEDS: MULTIVITAMIN I-VITE TABLET. PO SCH (09:00)
[2018-11-30] MEDS: LINAGLIPTIN 5 MG TABLET PO SCH (09:00)
[2018-11-30] MEDS: ASPIRIN CHEWABLE 81 MG TABLET. PO SCH (09:00)
[2018-11-30] MEDS: LACTOBACILLUS RHAMNOSUS GG 1 CAPSULE. PO SCH ×2 (09:00→21:29)
--- NOTE | 2018-11-30 09:57 | PDOC ---
Renal-Progress Notes Subjective Notes Notes NO NEW COMPLAINTS History of Present Illness Hx of present illness STABLE Vitals Vitals Vital Signs Date Time Temp Pulse Resp B/P (MAP) Pulse Ox O2 Delivery O2 Flow Rate FiO2 11/30/18 08:35 16 93 Nasal Cannula 2.0 11/30/18 07:00 98.0 87 126/62 (83) 98.0 Weight Weight [ ] I.O. Intake and Output Intake and Output 11/30/18 06:59 Intake Total 720 ml Output Total 1000 ml Balance -280 ml Intake Oral 720 ml Output Urine Total 1000 ml Labs Labs Laboratory Tests Test 11/29/18 11:24 11/29/18 16:46 11/29/18 20:19 11/29/18 21:34 Glucose (Fingerstick) 140 mg/dL (70-99) 117 mg/dL (70-99) 114 mg/dL (70-99) 133 mg/dL (70-99) Test 11/30/18 07:45 Glucose (Fingerstick) 124 mg/dL (70-99) Micro Micro Microbiology 11/24/18 Blood Culture - Final, Complete NO GROWTH AFTER 5 DAYS Review of Systems Constitutional: yes: weakness, alert, oriented Ears/Nose/Throat: Yes: no symptom reported Eyes: Yes: no symptom reported Pulmonary: Yes no symptom reported Cardiovascular: Yes no symptom reported Gastrointestional: Yes: constipation Genitourinary: Yes: no symptom reported Musculoskeletal: Yes: joint pain Skin: Yes no symptom reported Psychiatric/Neurological: Yes: no symptom reported Endocrine: Yes: no symptom reported Physical Exam General Appearance: no apparent distress Skin: warm Respiratory: bilateral CTA Heart: S1S2 Abdomen: soft Genitourinary: bladder flat Extremities: pulses present Assessment Assessment IMP ESRD DM II ANEMIA HTN RIGHT FOOT PAIN RIGHT CHARCOT ANKLE PLAN ON [facility] AND ID FOLLOWING HD TODAY UF TO DW WILL FOLLOW CARTER PEREZ MD Nov 30, 2018 09:57
[2018-11-30 11:00] VITALS: BP 135/65
[2018-11-30] MEDS ORDERED: ALBUMIN HUMAN 25% 200 ML IV PRN (11:30)
[2018-11-30] MEDS ORDERED: 0.9 % SODIUM CHLORIDE 10 ML DISP.SYRIN. IV PRN ×2 (11:30)
[2018-11-30] MEDS ORDERED: IV NORMAL SALINE 1000ML BAG 1,000 ML IV PRN (11:30)
[2018-11-30 11:43] LABS: HEMATOCRIT 26.2 % (36.0-47.0); HEMOGLOBIN 8.4 g/dL (12.0-15.5); RED BLOOD COUNT 2.97 x10^6/uL (3.50-5.40); RED CELL DISTRIBUTION WIDTH 18.2 % (11.5-14.5); WHITE BLOOD COUNT 9.6 x10^3/uL (4.0-11.0)
[2018-11-30 12:01] LABS: CALCIUM 8.9 mg/dL (8.5-10.1); CREATININE 3.7 mg/dL (0.6-1.0); GFR 12.8; POTASSIUM 3.8 mmol/L (3.5-5.1)
--- NOTE | 2018-11-30 12:15 | NUR ---
SS following up with discharge planning. Pt currently requiring oxygen. No discharge needs noted at this time. SS will continue to follow for discharge planning.
[2018-11-30] MEDS: VANCOMYCIN PER PHARMACY MC PRN (13:23)
[2018-11-30 15:00] VITALS: BP 125/60
[2018-11-30] MEDS ORDERED: DIALYSIS PATIENT. MC PRN ×2 (18:15)
[2018-11-30] MEDS: VANCOMYCIN 500 MG in IV NORMAL SALINE 100ML 100 ML IV SCH (18:59)
[2018-11-30 19:00] VITALS: BP 123/50
[2018-11-30] MEDS: PATCH REMOVAL. MC SCH (21:00)
[2018-11-30] MEDS: ATORVASTATIN CALCIUM 40 MG TABLET. PO SCH (21:29)
[2018-11-30] MEDS: MONTELUKAST SODIUM 10 MG TABLET. PO SCH (21:30)
[2018-11-30] MEDS: INSULIN GLARGINE 300 UNITS/3 ML INSULN.PEN. SQ SCH (21:40)
[2018-11-30 23:00] VITALS: BP 105/72
[2018-12-01] MEDS: fentaNYL PF VIAL 100 MCG/2 ML VIAL IV PRN ×2 (00:33→08:28)
[2018-12-01] MEDS: oxyCODONE/APAP 7.5/325 1 TAB TABLET PO PRN ×2 (00:33→08:30)
[2018-12-01 03:00] VITALS: BP 132/62
[2018-12-01] MEDS: PIPERACILLIN/TAZOBACTAM 2.25 GM in IV NORMAL SALINE 50ML 50 ML IV SCH ×2 (06:11→14:00)
[2018-12-01 07:00] VITALS: BP 142/50
[2018-12-01] MEDS: GABAPENTIN 300 MG CAPSULE. PO SCH (08:28)
[2018-12-01] MEDS: TORSEMIDE 20 MG TABLET. PO SCH (08:29)
[2018-12-01] MEDS: DULoxetine HCL 30 MG CAPSULE.DR PO SCH (08:29)
[2018-12-01] MEDS: FERROUS SULFATE 325 MG TABLET. PO SCH (08:29)
[2018-12-01] MEDS: MULTIVITAMIN I-VITE TABLET. PO SCH (08:29)
[2018-12-01] MEDS: BISACODYL 5 MG TABLET.DR. PO SCH (08:30)
[2018-12-01] MEDS: ASPIRIN CHEWABLE 81 MG TABLET. PO SCH (08:30)
[2018-12-01] MEDS: LINAGLIPTIN 5 MG TABLET PO SCH (08:30)
[2018-12-01] MEDS: LACTOBACILLUS RHAMNOSUS GG 1 CAPSULE. PO SCH (08:30)
[2018-12-01] MEDS: INSULIN LISPRO 300 UNITS/3 ML INSULN.PEN. SQ SCH ×2 (08:39→11:30)
--- NOTE | 2018-12-01 08:39 | PDOC ---
Provider Note Provider Note vss, no temp, R foot less tender- can dc when boot/scooter / iv meds arranged VERNA GARCIA MD Dec 01, 2018 08:39
--- NOTE | 2018-12-01 09:29 | PDOC ---
Infectious Disease Note Subjective Subjective right foot pain little better No fevers last 24 hours Denies N/V/D ROS ROS no n/v/d/ Vital Sign Vital Signs Vital Signs Date Time Temp Pulse Resp B/P (MAP) Pulse Ox O2 Delivery O2 Flow Rate FiO2 12/01/18 08:30 17 95 Nasal Cannula 2.0 12/01/18 07:00 98.5 87 142/50 (80) 98.5 Physical Exam PHYSICAL EXAM GENERAL: Propped up in bed, alert, NAD HEENT: Oral cavity, pharynx is clear. Dentures. NECK: Supple, no JVD. LUNGS: Clear to auscultation. HEART: S1, S2. ABDOMEN: Morbidly obese, soft, nontender EXTREMITIES: No clubbing, cyanosis. Right scooping machine tender, less swollen, bruised NEUROLOGIC: Alert, answering questions appropriately Left chest dialysis catheter without signs of any complications. Labs Lab Laboratory Tests Test 11/30/18 11:15 11/30/18 11:20 11/30/18 16:46 11/30/18 21:15 White Blood Count 9.6 x10^3/uL (4.0-11.0) Red Blood Count 2.97 x10^6/uL (3.50-5.40) Hemoglobin 8.4 g/dL (12.0-15.5) Hematocrit 26.2 % (36.0-47.0) Mean Corpuscular Volume 88 fL (79-100) Mean Corpuscular Hemoglobin 28 pg (25-35) Mean Corpuscular Hemoglobin Concent 32 g/dL (31-37) Red Cell Distribution Width 18.2 % (11.5-14.5) Platelet Count 336 x10^3/uL (140-400) Sodium Level 137 mmol/L (136-145) Potassium Level 3.8 mmol/L (3.5-5.1) Chloride Level 99 mmol/L (98-107) Carbon Dioxide Level 27 mmol/L (21-32) Anion Gap 11 (6-14) Blood Urea Nitrogen 54 mg/dL (7-20) Creatinine 3.7 mg/dL (0.6-1.0) Estimated GFR (Cockcroft-Gault) 12.8 Glucose Level 158 mg/dL (70-99) Calcium Level 8.9 mg/dL (8.5-10.1) Glucose (Fingerstick) 147 mg/dL (70-99) 81 mg/dL (70-99) 179 mg/dL (70-99) Test 12/01/18 07:42 Glucose (Fingerstick) 163 mg/dL (70-99) Micro Microbiology 11/24/18 Blood Culture - Final, Complete NO GROWTH AFTER 5 DAYS Objective Assessment Fever. Procalcitonin 0.74 Right foot swelling, pain was sudden onset. -MRI demo neuropathic joints or osteomyelitis. -No trauma or open wounds. - ESR 104. uric acid 7.4. BC neg Chronic kidney disease, on hemodialysis. Morbid obesity. Diabetes Plan Plan of Care MRI foot - unusual for Osteomyelitis without wound or trauma and a sudden onset less likely infection but cannot completely ruled out Continue Vanc and Zosyn for now Trough 18.6 Plan 6 weeks of IV therapy with dialysis. with vanc and po cipro ( cefepime Dialysis center will not do ) pt is aware and is ok with it probiotics side effects explained in detail KRISTEN ALBERT MD Dec 01, 2018 09:29
[2018-12-01 11:00] VITALS: BP 109/61
--- NOTE | 2018-12-01 12:26 | PDOC ---
Renal-Progress Notes Subjective Notes Notes NO NEW COMPLAINTS History of Present Illness Hx of present illness STABLE Vitals Vitals Vital Signs Date Time Temp Pulse Resp B/P (MAP) Pulse Ox O2 Delivery O2 Flow Rate FiO2 12/01/18 11:00 98.5 78 18 109/61 (77) 90 Nasal Cannula 98.5 12/01/18 08:58 2.0 Weight Weight [ ] I.O. Intake and Output Intake and Output 12/01/18 07:00 Intake Total 600 ml Output Total 475 ml Balance 125 ml Intake Oral 600 ml Output Urine Total 475 ml # Voids 4 Labs Labs Laboratory Tests Test 11/30/18 16:46 11/30/18 21:15 12/01/18 07:42 12/01/18 11:18 Glucose (Fingerstick) 81 mg/dL (70-99) 179 mg/dL (70-99) 163 mg/dL (70-99) 139 mg/dL (70-99) Micro Micro Microbiology 11/24/18 Blood Culture - Final, Complete NO GROWTH AFTER 5 DAYS Review of Systems Constitutional: yes: weakness, alert, oriented Ears/Nose/Throat: Yes: no symptom reported Eyes: Yes: no symptom reported Pulmonary: Yes no symptom reported Cardiovascular: Yes no symptom reported Gastrointestional: Yes: constipation Genitourinary: Yes: no symptom reported Musculoskeletal: Yes: joint pain Skin: Yes no symptom reported Psychiatric/Neurological: Yes: no symptom reported Endocrine: Yes: no symptom reported Physical Exam General Appearance: no apparent distress Skin: warm Respiratory: bilateral CTA Heart: S1S2 Abdomen: soft Genitourinary: bladder flat Extremities: pulses present Assessment Assessment IMP ESRD DM II ANEMIA HTN RIGHT FOOT PAIN RIGHT CHARCOT ANKLE PLAN ON [facility] AND ID FOLLOWING HD TOMORROW OP VANCOMYCIN ARRANGED D/W DR ALBERT WILL FOLLOW CARTER PEREZ MD Dec 01, 2018 12:26
--- NOTE | 2018-12-01 14:23 | NUR ---
SS following up with discharge planning. Pt's RN notified SS that pt will discharge today with home healthcare. Nurse Navigator from [facility] notified. SS received discharge orders for home healthcare. SS phoned and faxed discharge orders and referral to [facility], ; fax [phone].
[2018-12-01] MEDS: VANCOMYCIN PER PHARMACY MC PRN ×2 (14:39→14:40)
--- NOTE | 2018-12-01 14:39 | NUR ---
SS following up with discharge planning. Script for IV antibiotics received for dialysis. SS phoned and faxed script and clinical to [facility], ; fax [phone].
--- NOTE | 2018-12-01 16:28 | NUR ---
Discharge Note: BECCA TITUS Discharge instructions and discharge home medications reviewed with Patient and a copy given. All questions have been answered and understanding verbalized. The following instructions and handouts were given: Discharge Instructions, F/U Instructions, Prescriptions. Patient was heading to [facility] as outpatient after discharge to be fitted for a MUCKLESHOOT Boot. This nurse also contacted Dr. Ding who stated that her knee scooter was ordered and would be delivered to her home. Discontinued lines and drains: PIV removed, Catheter intact. Patient discharged to Home or Self Care withFamily Membervia Wheelchair
--- NOTE | 2018-12-03 01:02 | DS ---
DATE OF DISCHARGE: 12/01/2018 HOSPITAL SUMMARY: The patient came in with right foot and ankle pain and CT scan evidence of Charcot joint. Uric acid was normal. Sed rate was high at 104 and she was febrile with a high white count. She was treated as a possible cellulitis or osteomyelitis with vancomycin and Zosyn throughout the hospital stay and her pain gradually improved and she slowly became afebrile. Pain control was accomplished with Percocet and she underwent dialysis throughout the hospital stay. Various consultants saw the patient and we felt that the need to continue IV antibiotics without a definitive culture source was still reasonable given that there was no other clear evidence of another diagnosis and she was comfortable and she wished to be treated for the full 6 weeks for this. FINAL DIAGNOSES: 1. Cellulitis of the right foot and ankle. 2. Charcot joint of the right foot. 3. End-stage renal disease. OPERATIONS, PROCEDURES AND COMPLICATIONS: None. CONSULTATIONS: Dr. Waggoner, Dr. Velazquez of Infectious Disease and Dr. Ding. DISPOSITION: She will continue on vancomycin and Augmentin per ID, Percocet for pain. Rest of her home meds all remain the same. She will be offloaded in a boot and a roller walker-type device with Dr. Hairston's and Dr. Ding's discretion. We will see her in the office in followup per various specialists. PROGNOSIS: Good. VERNA GARCIA MD DR: GEMA/batool JOB#: [id number] / [id number]
== END 2018-12-01 16:00 | disposition home or self-care (01) | DRG 871 ==
LOC: 5 NORTH 16:12
PROVIDERS: ADMIT Family Medicine; ATTEND Family Medicine
PROC: 5A1D70Z Performance of Urinary Filtration, Intermittent, Less than 6 Hours Per Day (ICD-10-PCS; principal; 2018-11-25)
PROC: 5A1D70Z Performance of Urinary Filtration, Intermittent, Less than 6 Hours Per Day (ICD-10-PCS; 2018-11-30)
DX: A41.9 Sepsis, unspecified organism (principal); N18.6 End stage renal disease; L03.115 Cellulitis of right lower limb; I12.0 Hypertensive chronic kidney disease with stage 5 chronic kidney disease or end stage renal disease; M86.9 Osteomyelitis, unspecified; S92.253A Displaced fracture of navicular [scaphoid] of unspecified foot, initial encounter for closed fracture; E11.22 Type 2 diabetes mellitus with diabetic chronic kidney disease; D64.9 Anemia, unspecified; E11.610 Type 2 diabetes mellitus with diabetic neuropathic arthropathy; E11.69 Type 2 diabetes mellitus with other specified complication; E66.01 Morbid (severe) obesity due to excess calories; E78.5 Hyperlipidemia, unspecified; J44.9 Chronic obstructive pulmonary disease, unspecified; Z87.891 Personal history of nicotine dependence; Z99.2 Dependence on renal dialysis; Z88.8 Allergy status to other drugs, medicaments and biological substances; Z79.4 Long term (current) use of insulin
CPT/HCPCS: 36415; 73590; 73610; 73718; 80048; 80053; 80202; 82962; 83036; 84145; 84550; 85025; 85027; 85651; 86140; 87040; 93971; J0882; J1815; J2543; J3010; J3370; J7030; J7040

== ENCOUNTER 2019-01-31 10:03 | Observation (INO) | payer MEDICAID ==
[~2019-01-31] VITALS: Ht 162.6 cm; Wt 133.4 kg
[~2019-01-31 10:03] MED LIST changes: +ALBU2.5V8 INH; +ASPI-630 PO; +ATOR40TA59 PO; +BISA-97 PO; +BUPIVACAINE-EPI 0.5%-1:200000 MPF 30 ML VIAL. INJ ONE; +CARV25TA2 PO; +DULO30CA2 PO; +DULO30CA44 PO; +FERR325T14 PO; +FLUT10.6 IH; +GABA300C18 PO; +GABA600T7 PO; +HEPARIN SODIUM 5,000 UNIT in IV NORMAL SALINE 500ML BAG 500 ML IRR ONE; +HYDR-2765 PO; +INSU100C4 SQ; +INSU100I13 SQ; +INSU100I17 SQ; +IV RINGERS,LACTATED 1000ML 1,000 ML IV SCH; +LIDOCAINE 1% PF 2 ML VIAL. ID PRN; +MONT10TA49 PO; +MULT1TAB49 PO; +ONDANSETRON PF 4 MG/2 ML VIAL. IV PRN; +PROCHLORPERAZINE 10 MG/2 ML VIAL. IV PRN; +SITA50TA PO; +TORS10TA3 PO; +TORS20TA2 PO; +TURM500C4 PO; +ceFAZolin SODIUM 3 GM in IV DEXTROSE 5% 100ML 100 ML IV PRN; +fentaNYL PF VIAL 100 MCG/2 ML VIAL IV PRN; +jenuvia
[2019-01-31] MEDS: INSULIN LISPRO 100 UNIT/ML 3ML VIAL for OP,RR ONLY. SQ PRN ×2 (10:37→11:50)
[2019-01-31 10:47] LABS: BASO # 0.1 x10^3/uL (0.0-0.2); BASO % 1 % (0-3); EOS # 0.7 x10^3/uL (0.0-0.7); EOS % 6 % (0-3); HEMATOCRIT 32.9 % (36.0-47.0); HEMOGLOBIN 10.4 g/dL (12.0-15.5); LYMPH # 2.3 x10^3/uL (1.0-4.8); LYMPH % 22 % (24-48); MEAN CORPUSCULAR HEMOGLOBIN 29 pg (25-35); MEAN CORPUSCULAR HGB CONC 32 g/dL (31-37); MEAN CORPUSCULAR VOLUME 90 fL (79-100); MONO # 0.5 x10^3/uL (0.0-1.1); MONO % 5 % (0-9); NEUT # 6.9 x10^3/uL (1.8-7.7); NEUT % 66 % (31-73); PLATELET COUNT 204 x10^3/uL (140-400); RED BLOOD COUNT 3.65 x10^6/uL (3.50-5.40); RED CELL DISTRIBUTION WIDTH 19.2 % (11.5-14.5); WHITE BLOOD COUNT 10.4 x10^3/uL (4.0-11.0)
[2019-01-31 11:00] LABS: CALCIUM 9.4 mg/dL (8.5-10.1); CREATININE 2.8 mg/dL (0.6-1.0); GFR 17.6; POTASSIUM 3.9 mmol/L (3.5-5.1)
[2019-01-31] MEDS ORDERED: LIDOCAINE 2% PF 5 ML VIAL. ONE (11:45)
[2019-01-31] MEDS ORDERED: fentaNYL PF VIAL 100 MCG/2 ML VIAL ONE ×2 (11:45→16:47)
[2019-01-31] MEDS ORDERED: ROCURONIUM 50 MG/5 ML VIAL. ONE (11:45)
[2019-01-31] MEDS ORDERED: PROPOFOL 20 ML IV ONE (11:45)
[2019-01-31] MEDS ORDERED: DEXAMETHASONE SOD PHOS 4 MG/ML VIAL ONE (14:20)
[2019-01-31] MEDS ORDERED: ONDANSETRON PF 4 MG/2 ML VIAL. ONE (14:20)
[2019-01-31] MEDS ORDERED: DESFLURANE 31 TO 60 MINUTES IH ONE (14:20)
[2019-01-31] MEDS ORDERED: PHENYLEPHRINE in 0.9% NACL PF 1 MG/10 ML SYRINGE. IV ONE (14:29)
[2019-01-31] MEDS ORDERED: NEOSTIGMINE METHYLSULFATE 5 MG/5 ML SYRINGE. ONE (14:34)
[2019-01-31] MEDS ORDERED: GLYCOPYRROLATE 1 MG/5 ML VIAL. ONE (14:34)
[2019-01-31] MEDS ORDERED: VECURONIUM BOLUS 10 MG VIAL. IV ONE (15:00)
[2019-01-31] MEDS ORDERED: 0.9 % SODIUM CHLORIDE 20 ML VIAL. IJ ONE (15:01)
[2019-01-31] MEDS ORDERED: ePHEDrine PF IN SALINE 50 MG/10 ML SYRINGE. IV ONE (15:48)
--- NOTE | 2019-01-31 16:12 | DISCH ---
DISCHARGE INSTRUCTIONS Condition on Discharge Condition on Discharge: Stable Activity After Discharge Activity Instructions for Disc: Activity as tolerated Lifting Instructions after Dis: No heavy lifting Driving Instructions after Dis: Do not drive Diet after Discharge Diet after Discharge: Renal Dialysis Diet Texture: Regular Wound Incision Care Wound/Incision Care: Ice to area for comfort Follow-Up Follow up with: Tobias two weeks JEROME HILTON MD Jan 31, 2019 16:12
[2019-01-31] MEDS ORDERED: SEVOFLURANE > 120 MINUTES. IH ONE (16:22)
--- NOTE | 2019-01-31 16:22 | PDOC ---
BRIEF OPERATIVE NOTE Date: Jan 31, 2019 Pre-Op Diagnosis ESRD Post-Op Diagnosis same, abdominal adhesions Procedure Performed l/s placement PD catheter, TONY, primary repair incarcerated umbilical hernia Surgeon Tobias Carpet Technician Corrie FRAZIER Anesthesia Type: General Blood Loss 25cc IV Fluid 850cc Urine Output 300cc Specimens Obtained hernia sack with incarcerated contents Findings incarcerated omentum in hernia sack, omental adhesions Complications none Operative Note WK # [id number] JEROME HILTON MD Jan 31, 2019 16:21
[2019-01-31] MEDS ORDERED: HYDROcodone/APAP 7.5/325MG 1 TAB TABLET PO ONE (16:45)
[2019-01-31] MEDS: fentaNYL PF VIAL 100 MCG/2 ML VIAL IV PRN ×2 (16:49→17:13)
[2019-01-31] MEDS ORDERED: ALBUTEROL SULFATE 2.5 MG/3 ML NEBU. ONE (18:36)
[2019-01-31] MEDS ORDERED: ALBUTEROL SULFATE 2.5 MG/3 ML NEBU. NEB ONE (18:45)
[2019-01-31] MEDS: IV NORMAL SALINE 1000ML BAG 1,000 ML IV SCH ×3 (18:52→21:51)
--- NOTE | 2019-01-31 18:53 | OP ---
DATE OF SURGERY: 01/31/2019 PREOPERATIVE DIAGNOSIS: End-stage renal disease. POSTOPERATIVE DIAGNOSES: End-stage renal disease with abdominal adhesions and incarcerated umbilical hernia. PROCEDURE: Laparoscopic placement of peritoneal dialysis catheter, primary repair of incarcerated umbilical hernia, and lysis of adhesions. SURGEON: Rob Hilton MD NURSE SUBSTANCE ABUSE: FREDDIE Weber ANESTHESIA: General endotracheal. ESTIMATED BLOOD LOSS: 25 mL. INTRAVENOUS FLUIDS: 850. URINE OUTPUT: 300 mL. DESCRIPTION OF PROCEDURE: The patient brought to the operating suite, given a general endotracheal anesthetic and the abdomen prepped and draped in usual sterile fashion after Toro catheter was placed. An epigastric incision was infiltrated with local anesthetic, incised and a 5 mm x 150 mm Visiport used to gain access into the abdominal cavity, taking care to avoid injury to abdominal contents. Pneumoperitoneum established. Camera inserted. Inspection carried out with results as noted above. A left lower quadrant and left upper quadrant ports were placed to facilitate lysis of omental adhesions. This was done at the completion taking care to avoid injury to the bowel. We then placed the PD catheter using the Seldinger technique and seating the cuff just above the peritoneum. We then turned our attention to the umbilical hernia. Infraumbilical incision was made and dissection carried down to the incarcerated hernia contents. The sac was opened and the sac and contents were removed en bloc. The defect was closed with interrupted inverted [id number] 0 PDS. A second row of 0 Vicryl was used to reinforce the repair. Visual inspection with the laparoscope at 8 cm intraabdominal pressure showed good ablation of the hernia with no involvement of abdominal contents. Ports were removed. Catheter tunneled subcutaneously at the access site. It was then flushed with a liter of saline, which readily accepted and drained a similar amount. Incisions closed with 3-0 Vicryl in the subcutaneous tissues, 4-0 Monocryl and Steri-Strips for the skin. The catheter was "packed" with 60 mL of heparinized saline. After dressings applied, the patient awakened from her anesthetic. Toro catheter removed. She was taken to the postoperative area in stable condition. ROB HILTON MD DR: ANGEL/batool JOB#: [id number] / [id number]
[2019-01-31] MEDS ORDERED: ONDANSETRON PF 4 MG/2 ML VIAL. IV PRN (19:00)
[2019-01-31] MEDS ORDERED: HYDROmorphone 2 MG/ML VIAL IV PRN (19:00)
[2019-01-31] MEDS ORDERED: IV DEXTROSE 5% 250 ML BAG. IV PRN (19:00)
[2019-01-31] MEDS ORDERED: NALOXONE 0.4 MG/ML VIAL. IV PRN (19:00)
[2019-01-31] MEDS ORDERED: DEXTROSE 50% 25 GM / 50ML DISP.SYRIN. IV PRN (19:00)
[2019-01-31] MEDS ORDERED: 0.9 % SODIUM CHLORIDE 10 ML DISP.SYRIN. IV PRN (19:00)
--- NOTE | 2019-01-31 19:03 | PDOC ---
Provider Note Provider Note SURG having some mild hypoxia in RR sats in 80's with nasal cannula O2 will watch deo Barragan her PCP JEROME HILTON MD Jan 31, 2019 19:03
[2019-01-31 20:30] VITALS: BP 119/52
--- NOTE | 2019-01-31 20:30 | NUR ---
The patient, HAVEN TITUS, 53 y/o, F admitted by JEROME HILTON MD, was given written information regarding hospital policies, unit procedures and contact persons. RN received report from Trisha in PACU @ 2009, patient was transported via bed from the PACU to room 420 with parents at the bedside. RN performed a head to toe assessment at that time, VSS, afebrile, and pain rated a 6/10. Bed is in lowest locked position and call light is within reach. Valuables were checked and left in the room with the patient. RN will continue to monitor the patient closely.
[2019-01-31] MEDS: oxyCODONE/APAP 5/325 1 TAB TABLET PO PRN (21:49)
[2019-01-31] MEDS ORDERED: HYDROcodone/APAP 7.5/325MG 1 TAB TABLET PO PRN (22:45)
[2019-01-31] MEDS ORDERED: INSULIN GLARGINE HUM REC ANLOG 75 UNIT SQ SCH (23:00)
[2019-01-31] MEDS ORDERED: NON FORMULARY ITEM (Insulin Aspart (Novolog) 25 UNIT) SQ SCH (23:00)
[2019-02-01] VITALS (13 sets, daily range): BP systolic 101–146; BP diastolic 45–64
[2019-02-01] MEDS: INSULIN GLARGINE SYRINGE. SQ SCH ×2 (00:01→21:33)
[2019-02-01] MEDS: INSULIN LISPRO 300 UNITS/3 ML VIAL. SQ SCH ×4 (00:02→18:06)
--- NOTE | 2019-02-01 01:00 | NUR ---
Post op frequent vitals had to be restarted at this time due to protocol not recording the vitals properly.
[2019-02-01] MEDS: oxyCODONE/APAP 5/325 1 TAB TABLET PO PRN ×2 (05:33→18:04)
[2019-02-01] MEDS ORDERED: INFLUENZA VAX SCREEN BY RX. MC PRN (05:45)
[2019-02-01] MEDS ORDERED: INSULIN LISPRO 300 UNITS/3 ML VIAL. SQ SCH (07:30)
[2019-02-01] MEDS: BUDESONIDE 0.5 MG/2 ML NEBU. NEB SCH ×2 (08:00→20:00)
[2019-02-01] MEDS: TORSEMIDE 20 MG TABLET. PO SCH ×2 (08:26→17:55)
[2019-02-01] MEDS: DULoxetine HCL 30 MG CAPSULE.DR PO SCH ×2 (08:26→21:30)
[2019-02-01] MEDS: GABAPENTIN 300 MG CAPSULE. PO SCH ×2 (08:26→21:30)
[2019-02-01] MEDS: ASPIRIN CHEWABLE 81 MG TABLET. PO SCH (08:26)
[2019-02-01] MEDS: MULTIVITAMIN with MINERAL TABLET. PO SCH (08:26)
[2019-02-01] MEDS: LINAGLIPTIN 5 MG TABLET PO SCH (08:27)
[2019-02-01] MEDS: BISACODYL 5 MG TABLET.DR. PO SCH (08:27)
[2019-02-01] MEDS: CARVEDILOL 12.5 MG TABLET. PO SCH ×2 (08:27→17:55)
--- NOTE | 2019-02-01 08:28 | PDOC2 ---
CONSULT Date of Consult Date of Consult DATE: 02/01/19 TIME: 08:17 Reason for Consult Reason for Consult: Medical management Referring Physician Referring Physician: Dr. Rob Collado Identification/Chief Complaint Chief Complaint Post-op hypoxia History of Present Illness Reason for Visit: Mrs. Walker is a 53 year old female with complex past medical history including end-stage renal disease, type 2 diabetes, complicated by diabetic polyneuropathy and diabetic retinopathy, hypertension, hyperlipidemia, COPD, Charcot joint, nicotine dependence, and morbid obesity, who presented yesterday for peritoneal dialysis catheter placement and repair of umbilical hernia. Surgery went as expected without complications, however patient had hypoxia that was persistent in the recovery room, so it was deemed appropriate for overnight observation. This morning she is doing fine, hypoxia has improved. She is now on 2 L with normal oxygen levels, this would likely be able to wean oxygen further. She has been using the incentive spirometer regularly. She also admits to 2+ week hx of vaginal discharge that is clear, stringy and has a fishy odor. Denies vaginal itching. Past Medical History Past Medical History As above Endocrine: Diabetes Past Surgical History Past Surgical History Multiple vascular surgeries recently for access for hemodialysis, history of tubal ligation, tonsillectomy, left knee surgery. Family History Family History Mother has history of diabetes, hypertension, significant osteoarthritis and chronic back pain. Her father cancer of unknown origin. Her daughter and granddaughter are in relatively good health. Social History Social History Significant smoking history in the past, since the age of 15. No significant alcohol use or recreational drug use. Current Medications Current Medications See MAR Allergies Allergies: Coded Allergies: No Known Medication Allergies (Verified Allergy, Unknown, 11/26/18) morphine (Verified Adverse Reaction, Severe, Nausea and Vomiting, 11/25/18) ROS General: No: Fatigue PSYCHOLOGICAL ROS: No: Anxiety HEENT: No: Visual Changes, Hearing change, Nasal congestion, Nasal discharge Respiratory: YES: SOB with excertion; No: Cough, Shortness of breath Cardiovascular: No Chest Pain, No Palpitations, No Orthopnea Gastrointestinal: No Nausea, No Vomiting, No Abdominal Pain, No Diarrhea, No Constipation Genitourinary: No Dysuria Musculoskeletal: Yes Joint Pain Neurological: No Confusion, No Dizziness, No Headaches Skin: No Rash Physical Exam Physical Exam Alert and oriented, no acute distress RRR Diminished to auscultation bilaterally, which is baseline for her, no wheezes, fine crackles in b/l bases Abd binder in place, bandages are c/d/i Trace edema bilaterally Vitals VITALS Vital Signs Date Time Temp Pulse Resp B/P (MAP) Pulse Ox O2 Delivery O2 Flow Rate FiO2 02/01/19 07:40 Nasal Cannula 2.0 02/01/19 04:16 91 146/57 (86) 95 02/01/19 03:50 97.8 16 97.8 Labs Labs Reviewed. Assessment/Plan Assessment/Plan s/p PD catheter placement and umbilical hernia repair on 01/31/19 Postop hypoxia, related to atelectasis, improving ESRD Type 2 diabetes, complicated by diabetic polyneuropathy and diabetic retinopathy HTN HLD COPD without acute exacerbation Charcot joint, in R foot boot, seeing Dr. Ding Nicotine dependence Morbid obesity Likely bacterial vaginosis OK to dc from my perspective. Will likely be able to wean O2 prior to dc Dialysis today before dc Start metronidazole 500mg BID x 7 days for BV Pt will follow up with me in ~2 weeks or sooner if needed. ADELIA RAMOS MD Feb 01, 2019 08:28
[2019-02-01] MEDS ORDERED: NON FORMULARY ITEM (Fluticasone Propionate (Flovent 44MCG Hfa) 2 PUFF) IH SCH (09:00)
[2019-02-01] MEDS ORDERED: FLU VAX QS 2019-20 (36MOS+)/PF 0.5 ML SYRINGE. VAX IM ONE (09:00)
[2019-02-01] MEDS ORDERED: ENOXAPARIN 40 MG/0.4 ML SYRINGE. SQ SCH (09:00)
[2019-02-01] MEDS ORDERED: METR-34 PO (09:06)
--- NOTE | 2019-02-01 10:02 | PDOC ---
SURGICAL PROGRESS NOTE Subjective feels better still has nasal canula O2 Vital Signs Vital Signs Date Time Temp Pulse Resp B/P (MAP) Pulse Ox O2 Delivery O2 Flow Rate FiO2 02/01/19 08:38 91 146/57 02/01/19 07:40 Nasal Cannula 2.0 02/01/19 07:00 98.0 16 97 98.0 I&O Intake and Output 02/01/19 06:59 Intake Total 1750 ml Output Total 325 ml Balance 1425 ml Intake Oral 800 ml IV Total 950 ml Output Urine Total 300 ml Estimated Blood Loss 25 ml # Voids 1 PATIENT HAS A GARCIA: No General: Alert, Oriented X3, No acute distress Abdomen: Soft Labs Laboratory Tests Test 01/31/19 10:30 01/31/19 10:32 01/31/19 11:41 01/31/19 13:28 White Blood Count 10.4 x10^3/uL (4.0-11.0) Red Blood Count 3.65 x10^6/uL (3.50-5.40) Hemoglobin 10.4 g/dL (12.0-15.5) Hematocrit 32.9 % (36.0-47.0) Mean Corpuscular Volume 90 fL (79-100) Mean Corpuscular Hemoglobin 29 pg (25-35) Mean Corpuscular Hemoglobin Concent 32 g/dL (31-37) Red Cell Distribution Width 19.2 % (11.5-14.5) Platelet Count 204 x10^3/uL (140-400) Neutrophils (%) (Auto) 66 % (31-73) Lymphocytes (%) (Auto) 22 % (24-48) Monocytes (%) (Auto) 5 % (0-9) Eosinophils (%) (Auto) 6 % (0-3) Basophils (%) (Auto) 1 % (0-3) Neutrophils # (Auto) 6.9 x10^3/uL (1.8-7.7) Lymphocytes # (Auto) 2.3 x10^3/uL (1.0-4.8) Monocytes # (Auto) 0.5 x10^3/uL (0.0-1.1) Eosinophils # (Auto) 0.7 x10^3/uL (0.0-0.7) Basophils # (Auto) 0.1 x10^3/uL (0.0-0.2) Sodium Level 138 mmol/L (136-145) Potassium Level 3.9 mmol/L (3.5-5.1) Chloride Level 104 mmol/L (98-107) Carbon Dioxide Level 22 mmol/L (21-32) Anion Gap 12 (6-14) Blood Urea Nitrogen 37 mg/dL (7-20) Creatinine 2.8 mg/dL (0.6-1.0) Estimated GFR (Cockcroft-Gault) 17.6 Glucose Level 291 mg/dL (70-99) Calcium Level 9.4 mg/dL (8.5-10.1) Albumin 3.0 g/dL (3.4-5.0) Glucose (Fingerstick) 295 mg/dL (70-99) 259 mg/dL (70-99) 207 mg/dL (70-99) Test 01/31/19 16:57 01/31/19 22:04 02/01/19 07:49 Glucose (Fingerstick) 185 mg/dL (70-99) 305 mg/dL (70-99) 218 mg/dL (70-99) Laboratory Tests Test 01/31/19 10:30 01/31/19 10:32 01/31/19 11:41 01/31/19 13:28 White Blood Count 10.4 x10^3/uL (4.0-11.0) Red Blood Count 3.65 x10^6/uL (3.50-5.40) Hemoglobin 10.4 g/dL (12.0-15.5) Hematocrit 32.9 % (36.0-47.0) Mean Corpuscular Volume 90 fL (79-100) Mean Corpuscular Hemoglobin 29 pg (25-35) Mean Corpuscular Hemoglobin Concent 32 g/dL (31-37) Red Cell Distribution Width 19.2 % (11.5-14.5) Platelet Count 204 x10^3/uL (140-400) Neutrophils (%) (Auto) 66 % (31-73) Lymphocytes (%) (Auto) 22 % (24-48) Monocytes (%) (Auto) 5 % (0-9) Eosinophils (%) (Auto) 6 % (0-3) Basophils (%) (Auto) 1 % (0-3) Neutrophils # (Auto) 6.9 x10^3/uL (1.8-7.7) Lymphocytes # (Auto) 2.3 x10^3/uL (1.0-4.8) Monocytes # (Auto) 0.5 x10^3/uL (0.0-1.1) Eosinophils # (Auto) 0.7 x10^3/uL (0.0-0.7) Basophils # (Auto) 0.1 x10^3/uL (0.0-0.2) Sodium Level 138 mmol/L (136-145) Potassium Level 3.9 mmol/L (3.5-5.1) Chloride Level 104 mmol/L (98-107) Carbon Dioxide Level 22 mmol/L (21-32) Anion Gap 12 (6-14) Blood Urea Nitrogen 37 mg/dL (7-20) Creatinine 2.8 mg/dL (0.6-1.0) Estimated GFR (Cockcroft-Gault) 17.6 Glucose Level 291 mg/dL (70-99) Calcium Level 9.4 mg/dL (8.5-10.1) Albumin 3.0 g/dL (3.4-5.0) Glucose (Fingerstick) 295 mg/dL (70-99) 259 mg/dL (70-99) 207 mg/dL (70-99) Test 01/31/19 16:57 01/31/19 22:04 02/01/19 07:49 Glucose (Fingerstick) 185 mg/dL (70-99) 305 mg/dL (70-99) 218 mg/dL (70-99) Assessment/Plan POD 1 PD cath placement repair umbilical hernia stable from surgical standpoint d/w Dr Waggoner will plan dialysis in house today then dismiss f/u with me in two weeks JEROME HILTON MD Feb 01, 2019 10:02
--- NOTE | 2019-02-01 10:40 | PDOC2 ---
CONSULT Date of Consult Date of Consult DATE: 02/01/19 TIME: 10:35 Reason for Consult Reason for Consult: ESRD AND SOB Referring Physician Referring Physician: LIDA Identification/Chief Complaint Chief Complaint SOB Source Source: Chart review, Patient History of Present Illness Reason for Visit: THIS IS A 53 YR OLD ESRD PT ON HD. HAS A LEFT ARM AVF WHICH IS NEW AND NOT MATURE. HAS A RIGHT IJ TDC WHICH BEEN USED FOR HER HD. SHE IS NOW SWITCHING TO PD. SHE UNDERWENT A PD CATHETER PLACEMENT ALONG WITH AN UMBILICAL HERNIA REPAIR. SHE IS SOB TODAY AND TODAY IS HER USUAL HD DAY. LABS ARE C/W HER ESRD. CASE D/W DR HILTON AND SHE WILL BE NEED HD TODAY AND THE PLAN IS TO D/C HER AFTER THAT Past Medical History Cardiovascular: HTN Heme/Onc: Anemia NOS Endocrine: Diabetes, Hyperparathyroidism Past Surgical History Past Surgical History PD CATHETER. AVF, HX OF RIGHT IJ TDC Family History Family History: Diabetes, Hypertension Social History No ALCOHOL: none Drugs: None Lives: with Family Current Medications Current Medications Current Medications Ondansetron HCl (Zofran) 4 mg PRN Q6HRS PRN IV NAUSEA/VOMITING; Start 01/31/19 at 07:00; Stop 02/01/19 at 06:59; Status DC Fentanyl Citrate (Fentanyl 2ml Vial) 25 mcg PRN Q5MIN PRN IV MILD PAIN 1-3 Last administered on 01/31/19at 19:28; Start 01/31/19 at 07:00; Stop 02/01/19 at 06:59; Status DC Fentanyl Citrate (Fentanyl 2ml Vial) 50 mcg PRN Q5MIN PRN IV MODERATE TO SEVERE PAIN Last administered on 01/31/19at 17:14; Start 01/31/19 at 07:00; Stop 02/01/19 at 06:59; Status DC Ringer's Solution 1,000 ml @ 30 mls/hr Q24H IV ; Start 01/31/19 at 07:00; Stop 01/31/19 at 18:59; Status DC Lidocaine HCl (Xylocaine-Mpf 1% 2ml Vial) 2 ml PRN 1X PRN ID PRIOR TO IV START; Start 01/31/19 at 07:00; Stop 02/01/19 at 06:59; Status DC Prochlorperazine Edisylate (Compazine) 5 mg PACU PRN PRN IV NAUSEA, MRX1; Start 01/31/19 at 07:00; Stop 02/01/19 at 06:59; Status DC Bupivacaine HCl/ Epinephrine Bitart (Sensorcain-Epi 0.5%-1:281204 Mpf) 30 ml 1X ONCE INJ Last administered on 01/31/19at 15:48; Start 01/31/19 at 06:30; Stop 01/31/19 at 06:31; Status DC Heparin Sodium (Porcine) 5000 unit/Sodium Chloride 505 ml @ 505 mls/hr 1X ONCE IRR Last administered on 01/31/19at 15:06; Start 01/31/19 at 06:00; Stop 01/31/19 at 06:59; Status DC Cefazolin Sodium 3 gm/Dextrose 100 ml @ 200 mls/hr 1X PREOP PRN IV PRIOR TO PROCEDURE Last administered on 01/31/19at 14:38; Start 01/31/19 at 06:00; Stop 01/31/19 at 15:06; Status DC Insulin Human Lispro (HumaLOG VIAL for OP,RR ONLY) 0-10 units PRN Q1HR PRN SQ PER PROTOCOL Last administered on 01/31/19at 11:50; Start 01/31/19 at 10:30; Stop 02/01/19 at 07:00; Status DC Sodium Chloride 1,000 ml @ 75 mls/hr [id number] IV Last administered on 01/31/19at 21:52; Start 01/31/19 at 11:00 Propofol 20 ml @ As Directed STK-MED ONCE IV ; Start 01/31/19 at 11:45; Stop 01/31/19 at 11:45; Status DC Lidocaine HCl (Lidocaine Pf 2% Vial) 5 ml STK-MED ONCE .ROUTE ; Start 01/31/19 at 11:45; Stop 01/31/19 at 11:45; Status DC Rocuronium North (Zemuron) 50 mg STK-MED ONCE .ROUTE ; Start 01/31/19 at 11:45; Stop 01/31/19 at 11:45; Status DC Fentanyl Citrate (Fentanyl 2ml Vial) 100 mcg STK-MED ONCE .ROUTE ; Start 01/09 08/26 at 11:45; Stop 01/31/19 at 11:45; Status DC Dexamethasone Sodium Phosphate (Decadron) 4 mg STK-MED ONCE .ROUTE ; Start at 14:20; Stop 01/31/19 at 14:20; Status DC Desflurane (Suprane) 30 ml STK-MED ONCE IH ; Start 01/31/19 at 14:20; Stop at 14:20; Status DC Ondansetron HCl (Zofran) 4 mg STK-MED ONCE .ROUTE ; Start 01/31/19 at 14:20; Stop 01/31/19 at 14:20; Status DC Phenylephrine HCl (PHENYLEPHRINE in 0.9% NACL PF) 1 mg STK-MED ONCE IV ; Start 01/31/19 at 14:29; Stop 01/31/19 at 14:30; Status DC Neostigmine Methylsulfate (Neostigmine Methylsulfate) 5 mg STK-MED ONCE .ROUTE ; Start 01/31/19 at 14:34; Stop 01/31/19 at 14:34; Status DC Glycopyrrolate (Robinul) 1 mg STK-MED ONCE .ROUTE ; Start 01/31/19 at 14:34; Stop 01/31/19 at 14:34; Status DC Vecuronium North (Norcuron Bolus) 10 mg STK-MED ONCE IV ; Start 01/31/19 at 15:00; Stop 01/31/19 at 15:00; Status DC Sodium Chloride (SODIUM CHLORIDE 20ml) 20 ml STK-MED ONCE IJ ; Start 01/31/19 at 15:01; Stop 01/31/19 at 15:02; Status DC Ephedrine Sulfate (ePHEDrine PF IN SALINE SYRINGE) 50 mg STK-MED ONCE IV ; Start 01/31/19 at 15:48; Stop 01/31/19 at 15:48; Status DC Ephedrine Sulfate (Akovaz) 50 mg STK-MED ONCE .ROUTE ; Start 01/31/19 at 15:49; Stop 01/31/19 at 15:49; Status DC Sevoflurane (Ultane) 90 ml STK-MED ONCE IH ; Start 01/31/19 at 16:22; Stop 01/31/19 at 16:22; Status DC Acetaminophen/ Hydrocodone Bitart (Lortab 7.5/325) 1 tab 1X ONCE PO Last administered on 01/31/19at 18:58; Start 01/31/19 at 16:45; Stop 01/31/19 at 16:46; Status DC Fentanyl Citrate (Fentanyl 2ml Vial) 100 mcg STK-MED ONCE .ROUTE ; Start 01/31/19 at 16:47; Stop 01/31/19 at 16:47; Status DC Albuterol Sulfate (Ventolin Neb Soln) 2.5 mg STK-MED ONCE .ROUTE ; Start 01/31/19 at 18:36; Stop 01/31/19 at 18:37; Status DC Albuterol Sulfate (Ventolin Neb Soln) 2.5 mg 1X ONCE NEB Last administered on 01/31/19at 19:31; Start 01/31/19 at 18:45; Stop 01/31/19 at 18:46; Status DC Enoxaparin Sodium (Lovenox 40mg Syringe) 40 mg Q24H SQ Last administered on 02/01/19at 08:38; Start 02/01/19 at 09:00 Sodium Chloride (Normal Saline Flush) 3 ml QSHIFT PRN IV AFTER MEDS AND BLOOD DRAWS; Start 01/31/19 at 19:00 Sodium Chloride 1,000 ml @ 40 mls/hr Q24H IV ; Start 01/31/19 at 18:52 Dextrose (Dextrose 50%-Water Syringe) 12.5 gm PRN Q15MIN PRN IV SEE COMMENTS; Start 01/31/19 at 19:00 Dextrose 250 ml PRN Q15MIN PRN IV SEE COMMENTS; Start 01/31/19 at 19:00 Oxycodone/ Acetaminophen (Percocet 5/325) 1 tab PRN Q4HRS PRN PO MILD PAIN, 1ST CHOICE Last administered on 02/01/19at 05:33; Start 01/31/19 at 19:00 Oxycodone/ Acetaminophen (Percocet 5/325) 2 tab PRN Q4HRS PRN PO MODERATE PAIN, SEVERE PAIN; Start 01/31/19 at 19:00 Naloxone HCl (Narcan) 0.4 mg PRN Q2MIN PRN IV SEE INSTRUCTIONS; Start 01/31/19 at 19:00 Sodium Chloride 1,000 ml @ 25 mls/hr Q24H IV ; Start 01/31/19 at 18:52 Hydromorphone HCl (Dilaudid) 0.4 mg PRN Q1HR PRN IV PAIN; Start 01/31/19 at 19: 00 Ondansetron HCl (Zofran) 4 mg PRN Q6HRS PRN IV NAUESA, 1ST CHOICE; Start 01/31/19 at 19:00 Aspirin (Children'S Aspirin) 81 mg DAILYWBKFT PO Last administered on 02/01/19at 08:38; Start 02/01/19 at 08:00 Atorvastatin Calcium (Lipitor) 40 mg QHS PO ; Start 02/01/19 at 21:00 Bisacodyl (Dulcolax Tab) 5 mg DAILY PO Last administered on 02/01/19at 08:38; Start 02/01/19 at 09:00 Duloxetine HCl (Cymbalta) 30 mg BID PO Last administered on 02/01/19at 08:38; Start 02/01/19 at 09:00 Gabapentin (Neurontin) 300 mg BID PO Last administered on 02/01/19at 08:38; Start 02/01/19 at 09:00 Acetaminophen/ Hydrocodone Bitart (Lortab 7.5/325) 1 tab PRN Q6HRS PRN PO PAIN; Start 01/31/19 at 22:45 Montelukast Sodium (Singulair) 10 mg HS PO ; Start 02/01/19 at 21:00 Torsemide (Demadex) 20 mg BID92 PO Last administered on 02/01/19at 08:38; Start 02/01/19 at 09:00 Carvedilol (Coreg) 25 mg BIDWMEALS PO Last administered on 02/01/19at 08:38; Start 02/01/19 at 08:00 Non-Formulary Medication (Fluticasone Propionate (Flovent 44MCG Hfa)) 2 puff BID IH ; Start 02/01/19 at 09:00; Status UNV Insulin Human Lispro (HumaLOG) 25 units TIDAC SQ ; Start 02/01/19 at 07:30; Stop 01/31/19 at 23:03; Status DC Non-Formulary Medication (Insulin Glargine,Hum.rec.anlog (Lantus Solostar)) 75 unit QHS SQ ; Start 02/01/19 at 21:00; Stop 01/31/19 at 23:03; Status DC Multivitamins (Thera M Plus) 1 tab DAILY PO Last administered on 02/01/19at 08:38; Start 02/01/19 at 09:00 Linagliptin (Tradjenta) 5 mg DAILY PO Last administered on 02/01/19at 08:38; Start 02/01/19 at 09:00 Non-Formulary Medication (Insulin Aspart (Novolog)) 25 unit TIDAC SQ ; Start 01/31/19 at 23:00; Status UNV Non-Formulary Medication (Insulin Glargine,Hum.rec.anlog (Lantus Solostar)) 75 unit QHS SQ ; Start 01/31/19 at 23:00; Status UNV Insulin Human Lispro (HumaLOG) 25 units TIDAC SQ Last administered on 02/01/19at 08:38; Start 01/31/19 at 23:15 Insulin Glargine (Lantus Syringe) 75 unit QHS SQ Last administered on 02/01/19at 00:02; Start 01/31/19 at 23:15 Budesonide (Pulmicort) 0.5 mg RTBID NEB ; Start 02/01/19 at 08:00 Influenza Virus Vaccine Quadrival (Afluria Quad 2019-20 (3yr Up) Syringe) 0.5 ml ONCE ONCE VAX IM Last administered on 02/01/19at 08:38; Start 02/01/19 at 09:00; Stop 02/01/19 at 09:01; Status DC Info (FLU VACCINE SCREEN per RX) 1 each PRN 1X PRN MC SEE COMMENTS; Start 02/01/19 at 05:45; Status Cancel Metronidazole (Flagyl) 500 mg Q12HR PO ; Start 02/01/19 at 10:00 Active Scripts Active Metronidazole 500 Mg Tablet 1 Tab PO BID 7 Days Reported Hydrocodone-Apap 7.5-325 (Hydrocodone Bit/Acetaminophen) 1 Tab Tablet 1 Tab PO PRN Q6HRS PRN Novolog (Insulin Aspart) 100 Unit/1 Ml Cartridge 25 Unit SQ TIDAC Flovent 44MCG Hfa (Fluticasone Propionate) 10.6 Gm Aer.w.adap 2 Puff IH BID Proair Hfa Inhaler (Albuterol Sulfate) 8.5 Gm Hfa.aer.ad 1 Puff INH PRN Q6HRS PRN Januvia (Sitagliptin Phosphate) 50 Mg Tablet 25 Mg PO DAILY Lantus Solostar (Insulin Glargine,Hum.rec.anlog) 100 Unit/1 Ml Insuln.pen 75 Unit SQ QHS Singulair Tablet (Montelukast Sodium) 10 Mg Tablet 10 Mg PO HS Atorvastatin Calcium 40 Mg Tablet 1 Tab PO QHS Women's Gentle Laxative (Bisacodyl) 5 Mg Tablet.dr 5 Mg PO DAILY Aspirin 81 Mg Tab.chew 1 Tab PO DAILY Torsemide 20 Mg Tablet 1 Tab PO BID Gabapentin (Gabapentin) 300 Mg Capsule 300 Mg PO BID Cymbalta (Duloxetine Hcl) 30 Mg Capsule.dr 1 Cap PO BID Carvedilol 25 Mg Tablet 25 Mg PO BID Daily Jalen (Multivitamin) 1 Each Tablet 1 Each PO DAILY Allergies Allergies: Coded Allergies: No Known Medication Allergies (Verified Allergy, Unknown, 11/26/18) morphine (Verified Adverse Reaction, Severe, Nausea and Vomiting, 11/25/18) ROS General: YES: Fatigue PSYCHOLOGICAL ROS: YES: Anxiety Eyes: Yes Decreased vision HEENT: YES: Megan ALLERGY AND IMMUNOLOGY: YES: Seasonal Allergies Respiratory: YES: Cough, Orthopnea, Shortness of breath Cardiovascular: yes Orthopnea Genitourinary: YES Frequency, YES Other Musculoskeletal: Yes Muscular Weakness Neurological: Yes Weakness Skin: Yes Dry Skin Physical Exam General: Alert, Oriented X3, Cooperative, No acute distress HEENT: Atraumatic, PERRLA Lungs: Other (DECREASED AT THE BASES) Heart: Regular rate, Normal S1, Normal S2 Abdomen: Normal bowel sounds, Soft, No tenderness, Other (PD CATHETER SITE WITHOUT ANY DRAINAGE) Extremities: No cyanosis Skin: No breakdown Neuro: Normal speech, Sensation intact Psych/Mental Status: Mental status NL MUSCULOSKELETAL: No deformity, No swelling Vitals VITALS Vital Signs Date Time Temp Pulse Resp B/P (MAP) Pulse Ox O2 Delivery O2 Flow Rate FiO2 02/01/19 08:38 91 146/57 02/01/19 07:40 Nasal Cannula 2.0 02/01/19 07:00 98.0 16 97 98.0 Labs Labs Laboratory Tests Test 01/31/19 10:30 01/31/19 10:32 01/31/19 11:41 01/31/19 13:28 White Blood Count 10.4 x10^3/uL (4.0-11.0) Red Blood Count 3.65 x10^6/uL (3.50-5.40) Hemoglobin 10.4 g/dL (12.0-15.5) Hematocrit 32.9 % (36.0-47.0) Mean Corpuscular Volume 90 fL (79-100) Mean Corpuscular Hemoglobin 29 pg (25-35) Mean Corpuscular Hemoglobin Concent 32 g/dL (31-37) Red Cell Distribution Width 19.2 % (11.5-14.5) Platelet Count 204 x10^3/uL (140-400) Neutrophils (%) (Auto) 66 % (31-73) Lymphocytes (%) (Auto) 22 % (24-48) Monocytes (%) (Auto) 5 % (0-9) Eosinophils (%) (Auto) 6 % (0-3) Basophils (%) (Auto) 1 % (0-3) Neutrophils # (Auto) 6.9 x10^3/uL (1.8-7.7) Lymphocytes # (Auto) 2.3 x10^3/uL (1.0-4.8) Monocytes # (Auto) 0.5 x10^3/uL (0.0-1.1) Eosinophils # (Auto) 0.7 x10^3/uL (0.0-0.7) Basophils # (Auto) 0.1 x10^3/uL (0.0-0.2) Sodium Level 138 mmol/L (136-145) Potassium Level 3.9 mmol/L (3.5-5.1) Chloride Level 104 mmol/L (98-107) Carbon Dioxide Level 22 mmol/L (21-32) Anion Gap 12 (6-14) Blood Urea Nitrogen 37 mg/dL (7-20) Creatinine 2.8 mg/dL (0.6-1.0) Estimated GFR (Cockcroft-Gault) 17.6 Glucose Level 291 mg/dL (70-99) Calcium Level 9.4 mg/dL (8.5-10.1) Albumin 3.0 g/dL (3.4-5.0) Glucose (Fingerstick) 295 mg/dL (70-99) 259 mg/dL (70-99) 207 mg/dL (70-99) Test 01/31/19 16:57 01/31/19 22:04 02/01/19 07:49 Glucose (Fingerstick) 185 mg/dL (70-99) 305 mg/dL (70-99) 218 mg/dL (70-99) Laboratory Tests Test 01/31/19 11:41 01/31/19 13:28 01/31/19 16:57 01/31/19 22:04 Glucose (Fingerstick) 259 mg/dL (70-99) 207 mg/dL (70-99) 185 mg/dL (70-99) 305 mg/dL (70-99) Test 02/01/19 07:49 Glucose (Fingerstick) 218 mg/dL (70-99) Assessment/Plan Assessment/Plan IMP ESRD ANEMIA DYSPNEA HTN DM II S/P PD CATHETER S/P UMBILICAL HERNIA REPAIR PLAN HD TODAY UF TO DW D/C AFTER HD PLAN FOR URGENT START PD TOMORROW WILL FOLLOW D/W CARTER BOLDEN MD Feb 01, 2019 10:40
--- NOTE | 2019-02-01 11:48 | NUR ---
SS following for discharge planning. SS reviewed pt chart. Pt is from home and is currently requiring oxygen. No discharge needs noted at this time. SS will continue to follow for discharge planning.
[2019-02-01] MEDS ORDERED: IV NORMAL SALINE 1000ML BAG 1,000 ML IV PRN ×2 (12:36)
[2019-02-01] MEDS ORDERED: ACETAMINOPHEN 500 MG TABLET PO PRN (12:45)
[2019-02-01] MEDS ORDERED: diphenhydrAMINE 50 MG/ML VIAL IV PRN ×2 (12:45)
[2019-02-01] MEDS ORDERED: DIALYSIS PATIENT. MC PRN ×3 (12:45)
[2019-02-01 13:14] LABS: HEMATOCRIT 25.5 % (36.0-47.0); HEMOGLOBIN 8.4 g/dL (12.0-15.5); RED BLOOD COUNT 2.91 x10^6/uL (3.50-5.40); RED CELL DISTRIBUTION WIDTH 19.1 % (11.5-14.5); WHITE BLOOD COUNT 10.8 x10^3/uL (4.0-11.0)
[2019-02-01 13:25] LABS: CALCIUM 8.3 mg/dL (8.5-10.1); CREATININE 2.8 mg/dL (0.6-1.0); GFR 17.6; POTASSIUM 3.7 mmol/L (3.5-5.1)
[2019-02-01] MEDS: IV NORMAL SALINE 1000ML BAG 1,000 ML IV SCH ×4 (13:40→18:52)
[2019-02-01] MEDS: metroNIDAZOLE 500 MG TABLET PO SCH ×2 (17:55→21:31)
[2019-02-01] MEDS ORDERED: INSULIN GLARGINE HUM REC ANLOG 75 UNIT SQ SCH (21:00)
[2019-02-01] MEDS ORDERED: MONTELUKAST SODIUM 10 MG TABLET. PO SCH (21:00)
[2019-02-01] MEDS ORDERED: ATORVASTATIN CALCIUM 40 MG TABLET. PO SCH (21:00)
[2019-02-01] MEDS: HEPARIN for SUB-Q USE 5,000 UNIT/ML VIAL. SQ SCH (21:34)
[2019-02-02] MEDS: oxyCODONE/APAP 5/325 1 TAB TABLET PO PRN (01:26)
[2019-02-02 03:00] VITALS: BP 115/96
[2019-02-02] MEDS: IV NORMAL SALINE 1000ML BAG 1,000 ML IV SCH (03:00)
[2019-02-02] MEDS: HEPARIN for SUB-Q USE 5,000 UNIT/ML VIAL. SQ SCH (06:08)
[2019-02-02 07:00] VITALS: BP 123/59
[2019-02-02] MEDS: LINAGLIPTIN 5 MG TABLET PO SCH (08:24)
[2019-02-02] MEDS: GABAPENTIN 300 MG CAPSULE. PO SCH (08:24)
[2019-02-02] MEDS: MULTIVITAMIN with MINERAL TABLET. PO SCH (08:24)
[2019-02-02] MEDS: TORSEMIDE 20 MG TABLET. PO SCH (08:24)
[2019-02-02] MEDS: ASPIRIN CHEWABLE 81 MG TABLET. PO SCH (08:24)
[2019-02-02] MEDS: DULoxetine HCL 30 MG CAPSULE.DR PO SCH (08:25)
[2019-02-02] MEDS: BISACODYL 5 MG TABLET.DR. PO SCH (08:25)
[2019-02-02] MEDS: metroNIDAZOLE 500 MG TABLET PO SCH (08:25)
[2019-02-02 08:26] VITALS: BP 123/59
[2019-02-02] MEDS: CARVEDILOL 12.5 MG TABLET. PO SCH (08:26)
[2019-02-02] MEDS: INSULIN LISPRO 300 UNITS/3 ML VIAL. SQ SCH (08:33)
--- NOTE | 2019-02-02 11:30 | NUR ---
Discharge Note: FABY TITUS Discharge instructions and discharge home medications reviewed with Patient and a copy given. All questions have been answered and understanding verbalized. The following instructions and handouts were given: Discharge Instructions, Follow Up Care, Prescriptions, Patient Education Materials Discontinued lines and drains: PIV removed Catheter intact. Patient discharged to Home with Self-Care via Private Vehicle
--- NOTE | 2019-02-02 12:02 | PDOC ---
Renal-Progress Notes Subjective Notes Notes FEELS WELL History of Present Illness Hx of present illness NO CHANGE Vitals Vitals Vital Signs Date Time Temp Pulse Resp B/P (MAP) Pulse Ox O2 Delivery O2 Flow Rate FiO2 02/02/19 08:29 18 95 Room Air 2.0 02/02/19 08:26 81 123/59 02/02/19 07:00 97.8 97.8 Weight Weight [ ] I.O. Intake and Output Intake and Output 02/02/19 07:00 Intake Total 720 ml Output Total 0 ml Balance 720 ml Intake Oral 720 ml Output Urine Total 0 ml # Voids 1 Labs Labs Laboratory Tests Test 02/01/19 12:18 02/01/19 12:55 02/01/19 17:15 02/01/19 20:34 Glucose (Fingerstick) 225 mg/dL (70-99) 222 mg/dL (70-99) 233 mg/dL (70-99) White Blood Count 10.8 x10^3/uL (4.0-11.0) Red Blood Count 2.91 x10^6/uL (3.50-5.40) Hemoglobin 8.4 g/dL (12.0-15.5) Hematocrit 25.5 % (36.0-47.0) Mean Corpuscular Volume 88 fL (79-100) Mean Corpuscular Hemoglobin 29 pg (25-35) Mean Corpuscular Hemoglobin Concent 33 g/dL (31-37) Red Cell Distribution Width 19.1 % (11.5-14.5) Platelet Count 189 x10^3/uL (140-400) Sodium Level 137 mmol/L (136-145) Potassium Level 3.7 mmol/L (3.5-5.1) Chloride Level 103 mmol/L (98-107) Carbon Dioxide Level 25 mmol/L (21-32) Anion Gap 9 (6-14) Blood Urea Nitrogen 45 mg/dL (7-20) Creatinine 2.8 mg/dL (0.6-1.0) Estimated GFR (Cockcroft-Gault) 17.6 Glucose Level 252 mg/dL (70-99) Calcium Level 8.3 mg/dL (8.5-10.1) Test 02/02/19 07:42 Glucose (Fingerstick) 145 mg/dL (70-99) Review of Systems Constitutional: yes: alert, oriented Ears/Nose/Throat: Yes: no symptom reported Eyes: Yes: no symptom reported Pulmonary: Yes no symptom reported Cardiovascular: Yes no symptom reported Gastrointestional: Yes: no symptom reported Genitourinary: Yes: no symptom reported Musculoskeletal: Yes: no symptom reported Skin: Yes no symptom reported Psychiatric/Neurological: Yes: no symptom reported Endocrine: Yes: no symptom reported Physical Exam General Appearance: no apparent distress Skin: warm Respiratory: bilateral CTA Heart: S1S2 Abdomen: soft, bowel sounds present Genitourinary: bladder flat Extremities: pulses present Neurology: alert Assessment Assessment IMP ESRD ANEMIA DYSPNEA HTN DM II S/P PD CATHETER S/P UMBILICAL HERNIA REPAIR PLAN PT D/C TODAY SHE WILL F/U WITH PD CLINIC TOMORROW FOR URGENT START PD PT SCHEDULED FOR NOON D/W PD CLINIC CARTER PEREZ MD Feb 02, 2019 12:02
--- NOTE | 2019-02-03 16:06 | PATHOLOGY ---
[facility] Accession Number: [id number] . 01 Material submitted: . hernia - UMBILICAL HERNIA SAC WITH INCARCERATED CONTENTS . 01 Clinical history: . Umbilical hernia . 02 Diagnosis: Segment of focal mesothelial-lined fibromembranous and fibroadipose tissue, umbilical hernia repair: - Hernia sac and contents showing focal chronic inflammation. (JPM:taylor; 02/03/2019) QMS 02/03/2019 1239 Local . 02 Comment: There is no evidence of malignancy. . 02 Electronically signed: . Gus Meyer MD, Pathologist NPI- [id number] . 01 Gross description: . The specimen is received in formalin, labeled "Terence Walker, umbilical hernia sac with incarcerated contents". Received is a segment of fibromembranous tissue filled with yellow-nagy omentum measuring 8.6 x 6.1 x 4.4 cm in greatest dimensions. No distinct nodules or lesions are noted grossly. The specimen is submitted representatively in cassette A1. ([facility]; 02/02/2019) QA/[facility] 02/02/2019 0829 Local . 02 Pathologist provided ICD-10: K42.9 . 02 CPT . 058364 Specimen Comment: A courtesy copy of this report has been sent to Specimen Comment: [phone], . Specimen Comment: Report sent to / DR RAMOS Performed at: 01 [facility] [address] [facility] [address], [place] [id number] MD Vito Barnett MD Phone: [phone] Performed at: 02 [facility] [address], [place] [id number] MD Gus Meyer MD Phone: [phone]
== END 2019-02-02 11:05 | disposition home or self-care (01) ==
LOC: SURG 10:03 → 4 NORTH 20:00
PROVIDERS: ADMIT Surgery; ATTEND Surgery
PROC: 0WQF4ZZ Repair Abdominal Wall, Percutaneous Endoscopic Approach (ICD-10-PCS; principal; 2019-01-31 12:00)
DX: N18.6 End stage renal disease (principal); E10.22 Type 1 diabetes mellitus with diabetic chronic kidney disease; E66.01 Morbid (severe) obesity due to excess calories; E11.319 Type 2 diabetes mellitus with unspecified diabetic retinopathy without macular edema; E11.40 Type 2 diabetes mellitus with diabetic neuropathy, unspecified; E11.22 Type 2 diabetes mellitus with diabetic chronic kidney disease; I12.0 Hypertensive chronic kidney disease with stage 5 chronic kidney disease or end stage renal disease; Z99.2 Dependence on renal dialysis; D63.1 Anemia in chronic kidney disease; E11.42 Type 2 diabetes mellitus with diabetic polyneuropathy; E78.5 Hyperlipidemia, unspecified; J44.9 Chronic obstructive pulmonary disease, unspecified; N18.4 Chronic kidney disease, stage 4 (severe); F17.200 Nicotine dependence, unspecified, uncomplicated; K42.0 Umbilical hernia with obstruction, without gangrene; J98.11 Atelectasis; R09.02 Hypoxemia; K66.0 Peritoneal adhesions (postprocedural) (postinfection); Z82.49 Family history of ischemic heart disease and other diseases of the circulatory system; Z83.3 Family history of diabetes mellitus; Z68.42 Body mass index [BMI] 45.0-49.9, adult; Z98.51 Tubal ligation status; Z23 Encounter for immunization
CPT/HCPCS: 36415; 49653; 80048; 82040; 82962; 85025; 85027; 88302; 90471; 90686; 94640; 96372; A7015; G0378; G0379; J1100; J1644; J1650; J1815; J2001; J2370; J2405; J2704; J2710; J3010; J3490; J7030; J7040; J7613; J0171

== ENCOUNTER → 2019-02-08 | Outpatient (CLI) | payer MEDICAID ==
[~2019-02-08] VITALS: Ht 160 cm; Wt 133.8 kg
[~2019-02-08] MED LIST changes: -BUPIVACAINE-EPI 0.5%-1:200000 MPF 30 ML VIAL. INJ ONE; +CONTRAST GIVEN. MC PRN; -HEPARIN SODIUM 5,000 UNIT in IV NORMAL SALINE 500ML BAG 500 ML IRR ONE; +IOHEXOL 240 MG/ML 50ML VIAL. IJ ONE; +IOHEXOL 240 MG/ML 50ML VIAL. ONE; -IV RINGERS,LACTATED 1000ML 1,000 ML IV SCH; -LIDOCAINE 1% PF 2 ML VIAL. ID PRN; +METR-34 PO; -ONDANSETRON PF 4 MG/2 ML VIAL. IV PRN; -PROCHLORPERAZINE 10 MG/2 ML VIAL. IV PRN; -ceFAZolin SODIUM 3 GM in IV DEXTROSE 5% 100ML 100 ML IV PRN; -fentaNYL PF VIAL 100 MCG/2 ML VIAL IV PRN
[2019-02-08 09:50] VITALS: BP 138/67
[2019-02-08 10:35] VITALS: BP 159/63
[2019-02-08 10:47] VITALS: BP 162/75
[2019-02-08 10:49] VITALS: BP 162/75
[2019-02-08 10:55] VITALS: BP 143/59
--- NOTE | 2019-02-08 11:39 | NUR ---
Patient discharged to home accompanied by parents. All personal belongings taken with patient. Patient escorted to entrance per w/c to private vehicle. All discharge instructions reviewed with patient and family. Patient verbalized an understanding. [facility] site d/c'ed
--- NOTE | 2019-02-09 09:39 | RAD ---
Fluoroscopic guided peritoneal dialysis catheter evaluation. Clinical indication: Poorly functioning peritoneal dialysis catheter, placed roughly 1 week prior. Fluoroscopy time: 0.9 minutes. Images: 8. TECHNIQUE AND FINDINGS: Following informed consent, the patient's peritoneal dialysis catheter was cleansed with Betadine and the area over the abdomen was sterilely prepped. Fluoroscopic interrogation of the catheter revealed no structural malformations, with the distal coil seen in the left hemipelvis. Contrast was then injected and seen to flow freely through the peritoneal dialysis catheter into the peritoneum in the left hemiabdomen. No catheter fracture or obstruction is evident. Lateral view was performed demonstrating an anterior position of the peritoneal dialysis catheter in the left hemipelvis, just deep to the rectus sheath. IMPRESSION: 1. Fully functional peritoneal dialysis catheter, positioned anteriorly in the left hemipelvis, just deep to the rectus abdominis muscles.
== END ==
LOC: INTRAD 09:42
PROVIDERS: ATTEND Internal Medicine Nephrology
DX: T85.611A Breakdown (mechanical) of intraperitoneal dialysis catheter, initial encounter (principal); Y83.8 Other surgical procedures as the cause of abnormal reaction of the patient, or of later complication, without mention of misadventure at the time of the procedure; Y92.89 Other specified places as the place of occurrence of the external cause
CPT/HCPCS: 49400; 74190; J0690; Q9966

== ENCOUNTER 2019-02-16 09:08 | Emergency (ER) | payer MEDICAID ==
[~2019-02-16] VITALS: Ht 160 cm; Wt 131.5 kg
[~2019-02-16 09:08] MED LIST changes: -CONTRAST GIVEN. MC PRN; -IOHEXOL 240 MG/ML 50ML VIAL. IJ ONE; -IOHEXOL 240 MG/ML 50ML VIAL. ONE
--- NOTE | 2019-02-16 09:45 | PHYS DOC ---
Past Medical History Past Medical History: Diabetes-Type II, High Cholesterol, Hypertension Additional Past Medical Histor: Stage IV Kidney, sleep apnea Past Surgical History: Tubal ligation Additional Past Surgical Histo: Knee surgery Alcohol Use: None Drug Use: None Adult General Chief Complaint Chief Complaint: DIALYSIS PROBLEM HPI HPI Patient is a 53-year-old female who presents to the ED for evaluation. She has a Hx of ESRD, and had her last HD yesterday, and is due for HD tomorrow. She states overnight, her right SC dialysis catheter accidentally pulled out. She states that she is otherwise asymptomatic, and has no SOB, takes ASA, no other blood thinners. Denies SOB, chest pain, or any other complaints. Patient states that the stitches that were holding the catheter in were just removed yesterday. She was told that they did not need to be in for longer than they had been. She brings the catheter with her which appears to have been removed in its entirety. Patient states she called her clinical coordinator and was told to come to the emergency department. Review of Systems Review of Systems Constitutional: Denies fever or chills [] Eyes: Denies change in visual acuity, redness, or eye pain [] HENT: Denies nasal congestion or sore throat [] Respiratory: Denies cough or shortness of breath [] Cardiovascular: NThe patient denies any shortness of breath, chest pain, palpitations, or orthopnea GI: Denies abdominal pain, nausea, vomiting, bloody stools or diarrhea [] : Denies dysuria or hematuria [] Musculoskeletal: Denies back pain or joint pain [] Integument: Denies rash or skin lesions [] Neurologic: Denies headache, focal weakness or sensory changes [] Endocrine: Denies polyuria or polydipsia [] All other systems were reviewed and found to be within normal limits, except as documented in this note. Allergies Allergies Allergies Coded Allergies Type Severity Reaction Last Updated Verified No Known Medication Allergies Allergy Unknown 11/26/18 Yes morphine Adverse Reaction Severe Nausea and Vomiting 11/25/18 Yes Physical Exam Physical Exam PHYSICAL EXAM: CONSTITUTIONAL: Well developed, well nourished HEAD: normocephalic, atraumatic EENT: PERRL, EOMI. Conjunctivae normal color, sclerae non-icteric; moist mucous membranes. NECK: Supple, non-tender; no meningismus. LUNGS: Lungs CTA, breathing even and unlabored. Normal air movement. HEART: Regular rate and rhythm, no murmur CHEST: No deformity; non-tender. There is no bleeding noted from the right subclavian catheter insertion site. ABDOMEN: The abdomen is soft, and non-tender, no masses or bruits. EXTREM: Normal ROM; no deformity, no calf tenderness. Normal pulses palpable in all extremities. There is no pedal edema. SKIN: No rash; no diaphoresis NEURO: Alert; normal speech and cognition; CN's grossly intact; strength grossly intact without focal deficit. BACK: No CVA TTP. Current Patient Data Vital Signs Vital Signs Date Time Temp Pulse Resp B/P (MAP) Pulse Ox O2 Delivery O2 Flow Rate FiO2 02/16/19 10:00 80 18 143/66 (91) 96 Room Air 02/16/19 09:26 99.7 99.7 EKG EKG [] Radiology/Procedures Radiology/Procedures [] Course & Med Decision Making Course & Med Decision Making 9:45 AM: I spoke with interventional radiology to see about scheduling a replacement catheter today. Patient last ate at 7:45 AM, they will check her scheduled Master be done to try and facilitate this. Her next dialysis scheduled for 3:00 PM tomorrow but he did not have any outpatient slots available tomorrow per IR scheduling. 10:40 AM: I spoke with interventional radiology. They're unable to accommodate the patient today as an outpatient, they said the only option for doing her here would be to have her admitted as an inpatient, which seems wasteful. I spoke with Dr. Rawls, on-call for the patient's clinical coordinator, who said that there was an outpatient access Center that he contacted, who would be able to accommodate the patient tomorrow morning. The patient remained stable and I discussed plan of care with her. We discussed return precautions in detail. Dragon Disclaimer Dragon Disclaimer This electronic medical record was generated, in whole or in part, using a voice recognition dictation system. Departure Departure Impression: Primary Impression: Complications, dialysis, catheter, mechanical Disposition: HOME, SELF-CARE Condition: STABLE Referrals: ADELIA RAMOS MD (PCP) CARTER PEREZ MD Patient Instructions: Central Line Placement, Dialysis Access, Instructions Additional Instructions: Call the Dialysis Access Center, to schedule a time to have your catheter replaced tomorrow. VERNA MULLEN MD Feb 16, 2019 09:45
[2019-02-16 10:00] VITALS: BP 143/66
== END 2019-02-16 10:49 | disposition home or self-care (01) ==
LOC: ER 09:08
DX: T82.49XA Other complication of vascular dialysis catheter, initial encounter (principal); E11.22 Type 2 diabetes mellitus with diabetic chronic kidney disease; I12.0 Hypertensive chronic kidney disease with stage 5 chronic kidney disease or end stage renal disease; N18.6 End stage renal disease; Z98.51 Tubal ligation status; Z88.5 Allergy status to narcotic agent
CPT/HCPCS: 99281

== ENCOUNTER 2019-03-07 09:55 | Day surgery (SDC) | payer MEDICAID ==
[~2019-03-07 09:55] MED LIST changes: +BUPIVACAINE-EPI 0.5%-1:200000 MPF 30 ML VIAL. INJ ONE; +HEPARIN SODIUM 5,000 UNIT in IV NORMAL SALINE 500ML BAG 500 ML IRR ONE; +IV RINGERS,LACTATED 1000ML 1,000 ML IV SCH; +ONDANSETRON PF 4 MG/2 ML VIAL. IV PRN; +PROCHLORPERAZINE 10 MG/2 ML VIAL. IV PRN; +fentaNYL PF VIAL 100 MCG/2 ML VIAL IV PRN
[2019-03-07] MEDS ORDERED: INSULIN LISPRO 100 UNIT/ML 3ML VIAL for OP,RR ONLY. SQ PRN (10:30)
[2019-03-07] MEDS ORDERED: ceFAZolin SODIUM 3 GM in IV DEXTROSE 5% 100ML 100 ML IV ONE (10:30)
[2019-03-07 10:55] LABS: ALBUMIN 3.2 g/dL (3.4-5.0); CALCIUM 8.7 mg/dL (8.5-10.1); CREATININE 2.9 mg/dL (0.6-1.0); GFR 16.9; POTASSIUM 3.7 mmol/L (3.5-5.1)
[2019-03-07] MEDS ORDERED: fentaNYL PF VIAL 100 MCG/2 ML VIAL ONE (10:56)
[2019-03-07] MEDS ORDERED: ROCURONIUM 50 MG/5 ML VIAL. ONE ×2 (10:56→12:57)
[2019-03-07] MEDS ORDERED: LIDOCAINE 2% PF 5 ML VIAL. ONE (10:57)
[2019-03-07] MEDS ORDERED: ONDANSETRON PF 4 MG/2 ML VIAL. ONE (10:57)
[2019-03-07] MEDS ORDERED: PROPOFOL 20 ML IV ONE (10:57)
[2019-03-07] MEDS ORDERED: DEXAMETHASONE SOD PHOS 4 MG/ML VIAL ONE (10:57)
[2019-03-07] MEDS ORDERED: GLYCOPYRROLATE 1 MG/5 ML VIAL. ONE (13:07)
[2019-03-07] MEDS ORDERED: NEOSTIGMINE METHYLSULFATE 5 MG/5 ML SYRINGE. ONE (13:08)
[2019-03-07] MEDS ORDERED: NEOMY/BACITR/POLYMYXIN OINT PACKET. TP ONE (13:18)
[2019-03-07] MEDS ORDERED: SEVOFLURANE 61 TO 120 MINUTES. IH ONE (13:29)
--- NOTE | 2019-03-07 14:05 | DISCH ---
DISCHARGE INSTRUCTIONS Condition on Discharge Condition on Discharge: Stable Activity After Discharge Activity Instructions for Disc: Activity as tolerated Lifting Instructions after Dis: No heavy lifting Driving Instructions after Dis: Do not drive today Weight Bearing Status after Di: Partial weight bearing Diet after Discharge Diet after Discharge: Renal Dialysis Diet Texture: Regular Wound Incision Care Wound/Incision Care: Ice to area for comfort Checks after Discharge Checks after discharge: Check blood sugar, ac/hs Follow-Up Follow up with: Tobias next week JEROME HILTON MD Mar 07, 2019 14:05
--- NOTE | 2019-03-07 14:11 | PDOC ---
BRIEF OPERATIVE NOTE Date: Mar 07, 2019 Pre-Op Diagnosis ESRD with malfunctioning PD catheter Post-Op Diagnosis same Procedure Performed dx l/s TONY repositioning PD catheter Surgeon Tobias Anesthesia Type: General Blood Loss 50cc IV Fluid 1000cc Specimens Obtained none Findings dense omental adhesions enveloping the PD catheter and adherent to the abdominal wall Complications none Operative Note Wk # [id number] JEROME HILTON MD Mar 07, 2019 14:11
[2019-03-07] MEDS ORDERED: DOCU50CA9 PO (14:12)
[2019-03-07] MEDS ORDERED: HYDROcodone/APAP 7.5/325MG 1 TAB TABLET PO ONE (14:15)
[2019-03-07] MEDS ORDERED: ALBUTEROL SULFATE 2.5 MG/3 ML NEBU. NEB ONE (14:15)
[2019-03-07 14:45] VITALS: BP 126/62
--- NOTE | 2019-03-07 14:46 | OP ---
DATE OF SURGERY: 03/07/2019 PREOPERATIVE DIAGNOSIS: End-stage renal disease with malfunctioning PD catheter. POSTOPERATIVE DIAGNOSIS: End-stage renal disease with malfunctioning PD catheter. PROCEDURE: 1. Diagnostic laparoscopy. 2. Lysis of adhesions. 3. Repositioning PD catheter. SURGEON: Jerome Hilton MD ANESTHESIA: General endotracheal. ESTIMATED BLOOD LOSS: 50. INTRAVENOUS FLUIDS: A liter. INDICATIONS: The patient is a 53-year-old end-stage renal patient currently on hemodialysis, who had a PD catheter placed that was not functioning properly. At the time of placement, she had takedown of adhesions. OPERATIVE FINDINGS: Dense omental adhesions had enveloped the PD catheter in its entirety and becomes adherent to the anterior abdominal wall. DESCRIPTION OF PROCEDURE: The patient brought to the operating suite, given a general endotracheal anesthetic and the abdomen prepped and draped in usual sterile fashion. A previous port site in the epigastrium was infiltrated with local, incised and a 5 mm Visiport used to safely gain access into the abdominal cavity, taking care to avoid injury to abdominal contents. Pneumoperitoneum established and 2 left-sided ports, one in the lower quadrant, one in the upper quadrant were placed under direct vision. We set about exposing the catheter by taking down the omental adhesions around it from the abdominal wall using careful blunt dissection and "hot" scissor, taking care to avoid injury to the bowel. Once the catheter was delivered from its omental wrap, we completed lysis of adhesions, freeing the omentum off the abdominal wall. The pigtail of the catheter was positioned down into the true pelvis and the area checked for hemostasis. When present, the pneumoperitoneum was released. Ports were removed and the catheter flushed with 2 liters of normal saline, of which 1 liter plus was returned. The catheter was "packed" with heparinized saline. Skin incisions closed with interrupted 4-0 nylon sutures. Sterile dressings applied. The patient awakened from her anesthetic and taken to the recovery room in satisfactory condition. JEROME HILTON MD DR: ANGEL/nts JOB#: [id number] / [id number] RADHA Serrano MD
== END 2019-03-07 16:02 | disposition home or self-care (01) ==
LOC: SURG 09:55
PROVIDERS: ATTEND Surgery
DX: T85.691A Other mechanical complication of intraperitoneal dialysis catheter, initial encounter (principal); G47.30 Sleep apnea, unspecified; I11.9 Hypertensive heart disease without heart failure; E78.00 Pure hypercholesterolemia, unspecified; J44.9 Chronic obstructive pulmonary disease, unspecified; E11.22 Type 2 diabetes mellitus with diabetic chronic kidney disease; I12.0 Hypertensive chronic kidney disease with stage 5 chronic kidney disease or end stage renal disease; N18.6 End stage renal disease; E11.40 Type 2 diabetes mellitus with diabetic neuropathy, unspecified; D64.9 Anemia, unspecified; E66.01 Morbid (severe) obesity due to excess calories; Z68.43 Body mass index [BMI] 50.0-59.9, adult; Z87.891 Personal history of nicotine dependence; Z98.51 Tubal ligation status; Y83.8 Other surgical procedures as the cause of abnormal reaction of the patient, or of later complication, without mention of misadventure at the time of the procedure; Y92.89 Other specified places as the place of occurrence of the external cause; Z79.84 Long term (current) use of oral hypoglycemic drugs
CPT/HCPCS: 36415; 49325; 80048; 82040; 82962; 94640; A7015; J0690; J1100; J1644; J2001; J2405; J2704; J2710; J3010; J3490; J7030; J7040; J7613

== ENCOUNTER 2019-06-02 18:07 | Inpatient (IN) | payer MEDICARE, MEDICAID ==
[~2019-06-02] VITALS: Ht 160 cm; Wt 140.6 kg
[~2019-06-02 18:07] MED LIST changes: -BUPIVACAINE-EPI 0.5%-1:200000 MPF 30 ML VIAL. INJ ONE; +DOCU50CA9 PO; -HEPARIN SODIUM 5,000 UNIT in IV NORMAL SALINE 500ML BAG 500 ML IRR ONE; -IV RINGERS,LACTATED 1000ML 1,000 ML IV SCH; -ONDANSETRON PF 4 MG/2 ML VIAL. IV PRN; -PROCHLORPERAZINE 10 MG/2 ML VIAL. IV PRN; -fentaNYL PF VIAL 100 MCG/2 ML VIAL IV PRN
[2019-06-02] MEDS ORDERED: IV NORMAL SALINE 1000ML BAG 1,000 ML IV SCH (18:51)
--- NOTE | 2019-06-02 18:56 | PHYS DOC ---
Past Medical History Past Medical History: Diabetes-Type II, High Cholesterol, Hypertension Additional Past Medical Histor: Stage IV Kidney, sleep apnea Past Surgical History: Tubal ligation Additional Past Surgical Histo: Knee surgery Alcohol Use: None Drug Use: None Adult General Chief Complaint Chief Complaint: WEAKNESS/GENERALIZED HPI HPI Patient is a 54 year old female who presents with complaint of generalized weakness and diarrhea that started on Wednesday. Patient states that she started to have some twitching of her muscles as well as numbness and tingling in her hands and feet. She states that at time she gets a little bit of cramping in the abdomen but for the most part, no pain. She denies any chest pain or shortness breath. She also denies any fever. Patient states that nothing is improving her symptoms.[] Review of Systems Review of Systems Constitutional: Denies fever or chills [] Respiratory: Denies cough or shortness of breath [] Cardiovascular: No additional information not addressed in HPI [] GI: Denies abdominal pain. Complains of nausea and diarrhea [] Musculoskeletal: Denies back pain or joint pain [] Integument: Denies rash or skin lesions [] Neurologic: Denies headache, focal weakness or sensory changes [] All other systems were reviewed and found to be within normal limits, except as documented in this note. Current Medications Current Medications Current Medications Medications (Trade) Dose Ordered Sig/Mya Start Time Stop Time Status Last Admin Dose Admin Sodium Chloride 1,000 ml @ 1,000 mls/hr Q1H 06/02/19 18:51 06/02/19 19:50 DC 06/02/19 18:51 1,000 MLS/HR Allergies Allergies Allergies Coded Allergies Type Severity Reaction Last Updated Verified morphine Adverse Reaction Severe Nausea and Vomiting 03/07/19 Yes Physical Exam Physical Exam Constitutional: Well developed, well nourished, no acute distress, non-toxic appearance. [] HENT: Normocephalic, atraumatic, bilateral external ears normal, oropharynx moist, no oral exudates, nose normal. [] Eyes: PERRLA, EOMI, conjunctiva normal, no discharge. [] Neck: Normal range of motion, no tenderness, supple, no stridor. [] Cardiovascular: Regular rate and rhythm[] Lungs & Thorax: Bilateral breath sounds clear to auscultation [] Abdomen: Bowel sounds normal, soft, no tenderness. [] Skin: Warm, dry, no erythema, no rash. [] Extremities: No tenderness, no cyanosis, no clubbing, ROM intact. [] Neurologic: Alert and oriented X 3, no focal deficits noted. [] Current Patient Data Vital Signs Vital Signs Date Time Temp Pulse Resp B/P (MAP) Pulse Ox O2 Delivery O2 Flow Rate FiO2 06/02/19 18:50 98.6 95 20 103/51 (68) 95 Room Air 98.6 Lab Values Laboratory Tests Test 06/02/19 19:40 White Blood Count 11.6 x10^3/uL (4.0-11.0) H Red Blood Count 3.46 x10^6/uL (3.50-5.40) L Hemoglobin 10.5 g/dL (12.0-15.5) L Hematocrit 31.8 % (36.0-47.0) L Mean Corpuscular Volume 92 fL (79-100) Mean Corpuscular Hemoglobin 30 pg (25-35) Mean Corpuscular Hemoglobin Concent 33 g/dL (31-37) Red Cell Distribution Width 19.9 % (11.5-14.5) H Platelet Count 214 x10^3/uL (140-400) Neutrophils (%) (Auto) 74 % (31-73) H Lymphocytes (%) (Auto) 15 % (24-48) L Monocytes (%) (Auto) 6 % (0-9) Eosinophils (%) (Auto) 4 % (0-3) H Basophils (%) (Auto) 1 % (0-3) Neutrophils # (Auto) 8.6 x10^3/uL (1.8-7.7) H Lymphocytes # (Auto) 1.8 x10^3/uL (1.0-4.8) Monocytes # (Auto) 0.7 x10^3/uL (0.0-1.1) Eosinophils # (Auto) 0.5 x10^3/uL (0.0-0.7) Basophils # (Auto) 0.1 x10^3/uL (0.0-0.2) Sodium Level 141 mmol/L (136-145) Potassium Level 4.7 mmol/L (3.5-5.1) Chloride Level 104 mmol/L (98-107) Carbon Dioxide Level 25 mmol/L (21-32) Anion Gap 12 (6-14) Blood Urea Nitrogen 78 mg/dL (7-20) H Creatinine 5.0 mg/dL (0.6-1.0) H Estimated GFR (Cockcroft-Gault) 9.0 BUN/Creatinine Ratio 16 (6-20) Glucose Level 117 mg/dL (70-99) H Calcium Level 8.7 mg/dL (8.5-10.1) Total Bilirubin 0.3 mg/dL (0.2-1.0) Aspartate Amino Transferase (AST) 18 U/L (15-37) Alanine Aminotransferase (ALT) 20 U/L (14-59) Alkaline Phosphatase 116 U/L (46-116) Total Protein 5.6 g/dL (6.4-8.2) L Albumin 2.6 g/dL (3.4-5.0) L Albumin/Globulin Ratio 0.9 (1.0-1.7) L Lipase 142 U/L (73-393) Laboratory Tests 06/02/19 19:40 Laboratory Tests 06/02/19 19:40 EKG EKG [] Radiology/Procedures Radiology/Procedures [] Course & Med Decision Making Course & Med Decision Making Pertinent Labs and Imaging studies reviewed. (See chart for details) [] Dragon Disclaimer Dragon Disclaimer This electronic medical record was generated, in whole or in part, using a voice recognition dictation system. Departure Departure Impression: Primary Impression: Zjhoc-mz-[id number] kidney injury Additional Impressions: Dehydration Acute diarrhea Disposition: 09 ADMITTED INPATIENT Admitting Physician: Qamar Andersen Condition: IMPROVED Referrals: ADELIA RAMOS MD (PCP) Problem Qualifiers Primary Impression: Sglhm-wm-izeghmm kidney injury Acute renal failure type: unspecified Chronic kidney disease stage: unspecified stage Qualified Codes: N17.9 - Acute kidney failure, unspecified; N18.9 - Chronic kidney disease, unspecified LYNSEY ADAMS Jr. DO Jun 02, 2019 18:55
[2019-06-02 19:53] LABS: BASO # 0.1 x10^3/uL (0.0-0.2); BASO % 1 % (0-3); EOS # 0.5 x10^3/uL (0.0-0.7); EOS % 4 % (0-3); HEMATOCRIT 31.8 % (36.0-47.0); HEMOGLOBIN 10.5 g/dL (12.0-15.5); LYMPH # 1.8 x10^3/uL (1.0-4.8); LYMPH % 15 % (24-48); MEAN CORPUSCULAR HEMOGLOBIN 30 pg (25-35); MEAN CORPUSCULAR HGB CONC 33 g/dL (31-37); MEAN CORPUSCULAR VOLUME 92 fL (79-100); MONO # 0.7 x10^3/uL (0.0-1.1); MONO % 6 % (0-9); NEUT # 8.6 x10^3/uL (1.8-7.7); NEUT % 74 % (31-73); PLATELET COUNT 214 x10^3/uL (140-400); RED BLOOD COUNT 3.46 x10^6/uL (3.50-5.40); RED CELL DISTRIBUTION WIDTH 19.9 % (11.5-14.5); WHITE BLOOD COUNT 11.6 x10^3/uL (4.0-11.0)
[2019-06-02 20:02] LABS: CALCIUM 8.7 mg/dL (8.5-10.1); POTASSIUM 4.7 mmol/L (3.5-5.1)
[2019-06-02 20:09] LABS: ALBUMIN 2.6 g/dL (3.4-5.0); ALBUMIN/GLOBULIN RATIO 0.9 (1.0-1.7); TOTAL BILIRUBIN 0.3 mg/dL (0.2-1.0); TOTAL PROTEIN 5.6 g/dL (6.4-8.2)
[2019-06-02] MEDS ORDERED: MORPHINE SULFATE 4 MG/ML VIAL. IV PRN (22:15)
[2019-06-02] MEDS ORDERED: ONDANSETRON PF 4 MG/2 ML VIAL. IV PRN (22:15)
--- NOTE | 2019-06-02 22:15 | NUR ---
ADMISSION NOTE: Patient arrived to room 567 via gurney accompanied by ED staff. Patient ambulated to bathroom with right foot boot and cane. Bed low, locked, call light within reach. Patient has no complaints at this time. Will continue to monitor.
[2019-06-02] MEDS ORDERED: TRAZ150T49 PO (22:31)
[2019-06-02 23:00] VITALS: BP 123/49
[2019-06-02 23:30] LABS: BILIRUBIN,URINE NEGATIVE (NEG); CLARITY,URINE CLEAR; COLOR,URINE YELLOW; NITRITE,URINE NEGATIVE (NEG); PROTEIN,URINE NEGATIVE (NEG-TRACE); UROBILINOGEN,URINE 0.2 mg/dL (0.2 mg/dL)
[2019-06-02 23:34] LABS: SQUAMOUS EPITHELIAL CELL,UR MANY /LPF
[2019-06-02 23:35] LABS: BACTERIA,URINE MODERATE /HPF (0-FEW); RBC,URINE OCC /HPF (0-2)
[2019-06-02 23:36] LABS: HYALINE CASTS, URINE OCCASIONAL /HPF
--- NOTE | 2019-06-02 23:44 | NUR ---
Spoke with Dr. Rawls who is adapted physical education specialist for Dr. Waggoner about patient's PD tonight. Dr. Rawls stated that we will hold PD for tonight and will reevaluate and possibly resume tomorrow evening. Dr. Rawls also stated to re-call the consult in the AM to ensure this gets passed along. Will also pass along to day RN.
[2019-06-03] MEDS: IV NORMAL SALINE 1000ML BAG 1,000 ML IV SCH ×3 (01:35→16:42)
[2019-06-03 03:00] VITALS: BP 109/50
[2019-06-03 05:46] LABS: BASO % 1 % (0-3); EOS # 0.4 x10^3/uL (0.0-0.7); EOS % 4 % (0-3); HEMATOCRIT 30.3 % (36.0-47.0); LYMPH # 2.2 x10^3/uL (1.0-4.8); LYMPH % 22 % (24-48); MEAN CORPUSCULAR HEMOGLOBIN 31 pg (25-35); MEAN CORPUSCULAR HGB CONC 33 g/dL (31-37); MEAN CORPUSCULAR VOLUME 92 fL (79-100); MONO # 0.5 x10^3/uL (0.0-1.1); MONO % 5 % (0-9); NEUT # 6.8 x10^3/uL (1.8-7.7); NEUT % 68 % (31-73); PLATELET COUNT 209 x10^3/uL (140-400); RED BLOOD COUNT 3.27 x10^6/uL (3.50-5.40)
[2019-06-03 06:02] LABS: CALCIUM 8.7 mg/dL (8.5-10.1); CREATININE 4.7 mg/dL (0.6-1.0); GFR 9.7; POTASSIUM 4.2 mmol/L (3.5-5.1)
[2019-06-03 07:00] VITALS: BP 110/49
[2019-06-03] MEDS: BISACODYL 5 MG TABLET.DR. PO SCH (10:52)
[2019-06-03 11:00] VITALS: BP 104/35
--- NOTE | 2019-06-03 11:01 | PDOC ---
Provider Note Provider Note [id number] VERNA GARCIA MD Jun 03, 2019 11:01
--- NOTE | 2019-06-03 11:19 | HP ---
ADMIT DATE: 06/02/2019 CHIEF COMPLAINT: Diarrhea and weakness. HISTORY OF PRESENT ILLNESS: This is a 54-year-old insulin-dependent diabetic who is on peritoneal dialysis for the last 6 months or so. She has had increasing diarrhea for the last 4 days, weakness, and fatigue. It has been nonbloody in nature. There has been no fever, chills, abdominal pain, vomiting, or recent exposure to diarrhea. She started taking lisinopril one day prior to the onset of the symptoms. She is being given IV fluids overnight, has had made some urine, and feels a little better but still very weak with muscle twitching present. PAST MEDICAL HISTORY: She is on peritoneal dialysis under the care of Dr. Waggoner. She is on Lantus and high-dose carvedilol for hypertension and recently added lisinopril. ALLERGIES: LISTED TO MORPHINE. SOCIAL HISTORY: She lives alone, not employed, nondrinker, and nonsmoker. FAMILY HISTORY: Unremarkable. REVIEW OF SYSTEMS: No other complaints. OBJECTIVE: ENT: Mild periorbital edema, otherwise unremarkable. NECK: No masses, nodes, or bruits. LUNGS: Clear. CARDIOVASCULAR: Regular rate. No tachycardia. ABDOMEN: Obese, soft, benign, and nontender. EXTREMITIES: Decreased pedal pulses. No joint or skin lesions. NEUROLOGIC: Physiologic and nonfocal. ASSESSMENT: 1. Acute ongoing diarrhea with secondary weakness, etiology is undetermined. This started the day after lisinopril, which would be really unusual side effect of the drug, but we will hold the drug nevertheless, 2. End-stage renal disease, on peritoneal dialysis. 3. Type 2 diabetes mellitus, on insulin. 4. Hypertension, currently blood pressure is a little low from dehydration. PLAN: We will hold lisinopril. We will add amlodipine next if needed, but not yet. Continue IV fluids. Await Clostridium difficile test, though she has not had antibiotics recently. Peritoneal dialysis, we will continue here as well. VERNA GARCIA MD DR: GEMA/batool JOB#: [id number] / [id number]
[2019-06-03] MEDS: DULoxetine HCL 30 MG CAPSULE.DR PO SCH ×2 (12:08→21:05)
[2019-06-03] MEDS: MULTIVITAMIN with MINERAL TABLET. PO SCH (12:08)
[2019-06-03] MEDS: GABAPENTIN 300 MG CAPSULE. PO SCH ×2 (12:08→21:05)
[2019-06-03] MEDS: ASPIRIN CHEWABLE 81 MG TABLET. PO SCH (12:08)
[2019-06-03] MEDS: CARVEDILOL 12.5 MG TABLET. PO SCH ×2 (12:09→16:47)
--- NOTE | 2019-06-03 13:16 | PDOC2 ---
CONSULT Date of Consult Date of Consult DATE: 06/03/19 TIME: 13:16 Reason for Consult Reason for Consult: ESRD Identification/Chief Complaint Chief Complaint "Im feeling better" Source Source: Chart review, Patient History of Present Illness Reason for Visit: Pt is a 54-year-old CF insulin-dependent diabetic, wiith Dx of ESRD on PD currently, Has been on SCOOP FILLER since October 2018- started with HD, switched to PD since approx 21/2 month- Under Dr. Waggoner's care. She is admitted with c/o increasing diarrhea (non bloody) for the last 4 days, weakness, and fatigue. Denies fever, chills, abdominal pain, vomitin . She reports she started taking lisinopril one day prior to the onset of the symptoms. She has Good UOP, denies any urinary symptoms. States she she is feeling much better this am She has No Last fill Past Medical History Cardiovascular: HTN Heme/Onc: Anemia NOS Endocrine: Diabetes, Hyperparathyroidism Family History Family History: Diabetes, Hypertension Social History Social History She lives alone, not employed, nondrinker, and nonsmoker. ALCOHOL: none Drugs: None Lives: with Family Current Problem List Problem List Problems Medical Problems: (1) Acute diarrhea Status: Acute (2) Ilciz-wm-cyejplu kidney injury Status: Acute (3) Dehydration Status: Acute Current Medications Current Medications Current Medications Sodium Chloride 1,000 ml @ 1,000 mls/hr Q1H IV Last administered on 06/02/19at 18:51; Start 06/02/19 at 18:51; Stop 06/02/19 at 19:50; Status DC Ondansetron HCl (Zofran) 4 mg PRN Q8HRS PRN IV NAUSEA/VOMITING; Start 06/02/19 at 22:15; Stop 06/03/19 at 22:14 Morphine Sulfate (Morphine Sulfate) 4 mg PRN Q2HR PRN IV PAIN; Start 06/02/19 at 22:15; Stop 06/03/19 at 22:14 Sodium Chloride 1,000 ml @ 75 mls/hr [id number] IV Last administered on 06/03/19at 08:00; Start 06/02/19 at 22:15 Aspirin (Children'S Aspirin) 81 mg DAILY PO Last administered on 06/03/19at 12:08; Start 06/03/19 at 11:00 Atorvastatin Calcium (Lipitor) 40 mg QHS PO ; Start 06/03/19 at 21:00 Bisacodyl (Dulcolax Tab) 5 mg DAILY PO ; Start 06/03/19 at 11:00 Duloxetine HCl (Cymbalta) 30 mg BID PO Last administered on 06/03/19at 12:08; Start 06/03/19 at 11:00 Gabapentin (Neurontin) 300 mg BID PO Last administered on 06/03/19at 12:08; Start 06/03/19 at 11:00 Montelukast Sodium (Singulair) 10 mg HS PO ; Start 06/03/19 at 21:00 Torsemide (Demadex) 40 mg BID92 PO ; Start 06/03/19 at 14:00; Stop 06/03/19 at 10:58; Status DC Carvedilol (Coreg) 25 mg BIDWMEALS PO Last administered on 06/03/19at 12:09; Start 06/03/19 at 11:00 Insulin Glargine (Lantus Syringe) 75 unit BID@0700,1900 SQ ; Start 06/03/19 at 19:00 Multivitamins (Thera M Plus) 1 tab DAILY PO Last administered on 06/03/19at 12:08; Start 06/03/19 at 11:00 Trazodone HCl (Desyrel) 150 mg QHS PO ; Start 06/03/19 at 21:00 Active Scripts Active Reported Trazodone Hcl 150 Mg Tablet 1 Tab PO QHS 30 Days Novolog (Insulin Aspart) 100 Unit/1 Ml Cartridge 0 SQ TIDAC Sliding scale; patient has printout (at home) of scale. Unknown at this time. Proair Hfa Inhaler (Albuterol Sulfate) 8.5 Gm Hfa.aer.ad 1 Puff INH PRN Q6HRS PRN Januvia (Sitagliptin Phosphate) 50 Mg Tablet 25 Mg PO DAILY Lantus Solostar (Insulin Glargine,Hum.rec.anlog) 100 Unit/1 Ml Insuln.pen 75 Unit SQ 0700,1900 Singulair Tablet (Montelukast Sodium) 10 Mg Tablet 10 Mg PO HS Atorvastatin Calcium 40 Mg Tablet 1 Tab PO QHS Women's Gentle Laxative (Bisacodyl) 5 Mg Tablet.dr 5 Mg PO DAILY Aspirin 81 Mg Tab.chew 1 Tab PO DAILY Torsemide 20 Mg Tablet 2 Tab PO BID Gabapentin (Gabapentin) 300 Mg Capsule 300 Mg PO BID Cymbalta (Duloxetine Hcl) 30 Mg Capsule. 1 Cap PO BID Carvedilol 25 Mg Tablet 25 Mg PO BID Daily Jalen (Multivitamin) 1 Each Tablet 1 Each PO DAILY Allergies Allergies: Coded Allergies: No Known Medication Allergies (Verified Allergy, Unknown, 06/03/19) morphine (Verified Adverse Reaction, Severe, Nausea and Vomiting, 03/07/19) ROS Review of System Per HPI Physical Exam Physical Exam GEN: NAD, morbidly obese HEEN: OM moist NECK: supple CVS: RRR RESP: CTA, Non labored GI: Obese, NT, soft, PD catheter +, No e/o exit sit infection NEURO- Grossly normal SKIN- No rash No SP or CVA tenderness, No Toro Vital Signs Vital Signs Date Time Temp Pulse Resp B/P (MAP) Pulse Ox O2 Delivery O2 Flow Rate FiO2 06/03/19 12:09 95 110/49 06/03/19 11:00 97.7 16 93 Room Air 97.7 Assessment & Plan ESRD- On PD under Dr Waggoner's care Has been on SCOOP FILLER since October 2018- initially on HD, switched to PD approx 21/2 months back E-Lytes stable, Clinically stable, euvolemic, APD per home prescription , [facility]z Diarrhea with secondary weakness - per primary Cautious with IVF as ESRD Type 2 diabetes mellitus, on insulin. Hypertension, blood pressure is a little low from dehydration. Torsemide held, Labs Labs Laboratory Tests Test 06/02/19 19:40 06/02/19 22:30 06/03/19 00:31 06/03/19 04:25 White Blood Count 11.6 x10^3/uL (4.0-11.0) 10.0 x10^3/uL (4.0-11.0) Red Blood Count 3.46 x10^6/uL (3.50-5.40) 3.27 x10^6/uL (3.50-5.40) Hemoglobin 10.5 g/dL (12.0-15.5) 10.0 g/dL (12.0-15.5) Hematocrit 31.8 % (36.0-47.0) 30.3 % (36.0-47.0) Mean Corpuscular Volume 92 fL (79-100) 92 fL (79-100) Mean Corpuscular Hemoglobin 30 pg (25-35) 31 pg (25-35) Mean Corpuscular Hemoglobin Concent 33 g/dL (31-37) 33 g/dL (31-37) Red Cell Distribution Width 19.9 % (11.5-14.5) 20.0 % (11.5-14.5) Platelet Count 214 x10^3/uL (140-400) 209 x10^3/uL (140-400) Neutrophils (%) (Auto) 74 % (31-73) 68 % (31-73) Lymphocytes (%) (Auto) 15 % (24-48) 22 % (24-48) Monocytes (%) (Auto) 6 % (0-9) 5 % (0-9) Eosinophils (%) (Auto) 4 % (0-3) 4 % (0-3) Basophils (%) (Auto) 1 % (0-3) 1 % (0-3) Neutrophils # (Auto) 8.6 x10^3/uL (1.8-7.7) 6.8 x10^3/uL (1.8-7.7) Lymphocytes # (Auto) 1.8 x10^3/uL (1.0-4.8) 2.2 x10^3/uL (1.0-4.8) Monocytes # (Auto) 0.7 x10^3/uL (0.0-1.1) 0.5 x10^3/uL (0.0-1.1) Eosinophils # (Auto) 0.5 x10^3/uL (0.0-0.7) 0.4 x10^3/uL (0.0-0.7) Basophils # (Auto) 0.1 x10^3/uL (0.0-0.2) 0.0 x10^3/uL (0.0-0.2) Sodium Level 141 mmol/L (136-145) 139 mmol/L (136-145) Potassium Level 4.7 mmol/L (3.5-5.1) 4.2 mmol/L (3.5-5.1) Chloride Level 104 mmol/L (98-107) 103 mmol/L (98-107) Carbon Dioxide Level 25 mmol/L (21-32) 24 mmol/L (21-32) Anion Gap 12 (6-14) 12 (6-14) Blood Urea Nitrogen 78 mg/dL (7-20) 76 mg/dL (7-20) Creatinine 5.0 mg/dL (0.6-1.0) 4.7 mg/dL (0.6-1.0) Estimated GFR (Cockcroft-Gault) 9.0 9.7 BUN/Creatinine Ratio 16 (6-20) Glucose Level 117 mg/dL (70-99) 187 mg/dL (70-99) Calcium Level 8.7 mg/dL (8.5-10.1) 8.7 mg/dL (8.5-10.1) Total Bilirubin 0.3 mg/dL (0.2-1.0) Aspartate Amino Transf (AST/SGOT) 18 U/L (15-37) Alanine Aminotransferase (ALT/SGPT) 20 U/L (14-59) Alkaline Phosphatase 116 U/L (46-116) Total Protein 5.6 g/dL (6.4-8.2) Albumin 2.6 g/dL (3.4-5.0) Albumin/Globulin Ratio 0.9 (1.0-1.7) Lipase 142 U/L (73-393) Urine Collection Type Unknown Urine Color Yellow Urine Clarity Clear Urine pH 5.0 Urine Specific [place] 1.010 Urine Protein Negative mg/dL (NEG-TRACE) Urine Glucose (UA) Negative mg/dL (NEG) Urine Ketones (Stick) Negative mg/dL (NEG) Urine Blood Trace (NEG) Urine Nitrite Negative (NEG) Urine Bilirubin Negative (NEG) Urine Urobilinogen Dipstick 0.2 mg/dL (0.2 mg/dL) Urine Leukocyte Esterase Negative (NEG) Urine RBC Occ /HPF (0-2) Urine WBC 1-4 /HPF (0-4) Urine Squamous Epithelial Cells Many /LPF Urine Bacteria Moderate /HPF (0-FEW) Urine Hyaline Casts Occasional /HPF Urine Mucus Mod /LPF Glucose (Fingerstick) 102 mg/dL (70-99) Test 06/03/19 09:14 06/03/19 11:52 Glucose (Fingerstick) 130 mg/dL (70-99) 153 mg/dL (70-99) Laboratory Tests Test 06/02/19 19:40 06/02/19 22:30 06/03/19 00:31 06/03/19 04:25 White Blood Count 11.6 x10^3/uL (4.0-11.0) 10.0 x10^3/uL (4.0-11.0) Red Blood Count 3.46 x10^6/uL (3.50-5.40) 3.27 x10^6/uL (3.50-5.40) Hemoglobin 10.5 g/dL (12.0-15.5) 10.0 g/dL (12.0-15.5) Hematocrit 31.8 % (36.0-47.0) 30.3 % (36.0-47.0) Mean Corpuscular Volume 92 fL (79-100) 92 fL (79-100) Mean Corpuscular Hemoglobin 30 pg (25-35) 31 pg (25-35) Mean Corpuscular Hemoglobin Concent 33 g/dL (31-37) 33 g/dL (31-37) Red Cell Distribution Width 19.9 % (11.5-14.5) 20.0 % (11.5-14.5) Platelet Count 214 x10^3/uL (140-400) 209 x10^3/uL (140-400) Neutrophils (%) (Auto) 74 % (31-73) 68 % (31-73) Lymphocytes (%) (Auto) 15 % (24-48) 22 % (24-48) Monocytes (%) (Auto) 6 % (0-9) 5 % (0-9) Eosinophils (%) (Auto) 4 % (0-3) 4 % (0-3) Basophils (%) (Auto) 1 % (0-3) 1 % (0-3) Neutrophils # (Auto) 8.6 x10^3/uL (1.8-7.7) 6.8 x10^3/uL (1.8-7.7) Lymphocytes # (Auto) 1.8 x10^3/uL (1.0-4.8) 2.2 x10^3/uL (1.0-4.8) Monocytes # (Auto) 0.7 x10^3/uL (0.0-1.1) 0.5 x10^3/uL (0.0-1.1) Eosinophils # (Auto) 0.5 x10^3/uL (0.0-0.7) 0.4 x10^3/uL (0.0-0.7) Basophils # (Auto) 0.1 x10^3/uL (0.0-0.2) 0.0 x10^3/uL (0.0-0.2) Sodium Level 141 mmol/L (136-145) 139 mmol/L (136-145) Potassium Level 4.7 mmol/L (3.5-5.1) 4.2 mmol/L (3.5-5.1) Chloride Level 104 mmol/L (98-107) 103 mmol/L (98-107) Carbon Dioxide Level 25 mmol/L (21-32) 24 mmol/L (21-32) Anion Gap 12 (6-14) 12 (6-14) Blood Urea Nitrogen 78 mg/dL (7-20) 76 mg/dL (7-20) Creatinine 5.0 mg/dL (0.6-1.0) 4.7 mg/dL (0.6-1.0) Estimated GFR (Cockcroft-Gault) 9.0 9.7 BUN/Creatinine Ratio 16 (6-20) Glucose Level 117 mg/dL (70-99) 187 mg/dL (70-99) Calcium Level 8.7 mg/dL (8.5-10.1) 8.7 mg/dL (8.5-10.1) Total Bilirubin 0.3 mg/dL (0.2-1.0) Aspartate Amino Transf (AST/SGOT) 18 U/L (15-37) Alanine Aminotransferase (ALT/SGPT) 20 U/L (14-59) Alkaline Phosphatase 116 U/L (46-116) Total Protein 5.6 g/dL (6.4-8.2) Albumin 2.6 g/dL (3.4-5.0) Albumin/Globulin Ratio 0.9 (1.0-1.7) Lipase 142 U/L (73-393) Urine Collection Type Unknown Urine Color Yellow Urine Clarity Clear Urine pH 5.0 Urine Specific [place] 1.010 Urine Protein Negative mg/dL (NEG-TRACE) Urine Glucose (UA) Negative mg/dL (NEG) Urine Ketones (Stick) Negative mg/dL (NEG) Urine Blood Trace (NEG) Urine Nitrite Negative (NEG) Urine Bilirubin Negative (NEG) Urine Urobilinogen Dipstick 0.2 mg/dL (0.2 mg/dL) Urine Leukocyte Esterase Negative (NEG) Urine RBC Occ /HPF (0-2) Urine WBC 1-4 /HPF (0-4) Urine Squamous Epithelial Cells Many /LPF Urine Bacteria Moderate /HPF (0-FEW) Urine Hyaline Casts Occasional /HPF Urine Mucus Mod /LPF Glucose (Fingerstick) 102 mg/dL (70-99) Test 06/03/19 09:14 06/03/19 11:52 Glucose (Fingerstick) 130 mg/dL (70-99) 153 mg/dL (70-99) Review All relevant outside records, renal labs, imaging studies, telemetry/EKG's were reviewed. FLORINA TRONCOSO MD Jun 03, 2019 13:16
[2019-06-03] MEDS ORDERED: TORSEMIDE 20 MG TABLET. PO SCH (14:00)
[2019-06-03 15:00] VITALS: BP 97/34
[2019-06-03] MEDS: INSULIN GLARGINE SYRINGE. SQ SCH (18:41)
[2019-06-03 19:00] VITALS: BP 125/58
[2019-06-03] MEDS: MONTELUKAST SODIUM 10 MG TABLET. PO SCH (21:04)
[2019-06-03] MEDS: traZODone 100 MG TABLET. PO SCH (21:05)
[2019-06-03] MEDS: ATORVASTATIN CALCIUM 40 MG TABLET. PO SCH (21:05)
[2019-06-03 23:00] VITALS: BP 115/50
[2019-06-04] MEDS: HYDROcodone/APAP 5/325MG 1 TAB TABLET PO PRN ×2 (02:47→21:57)
[2019-06-04 03:00] VITALS: BP 120/56
[2019-06-04] MEDS: IV NORMAL SALINE 1000ML BAG 1,000 ML IV SCH (05:56)
[2019-06-04] MEDS: PHENYLEPH/MINERAL OIL/PETROLAT RECTAL OINTMENT TUBE. RC PRN ×2 (06:43→21:23)
[2019-06-04 07:59] VITALS: BP 101/43
[2019-06-04] MEDS: BISACODYL 5 MG TABLET.DR. PO SCH (08:09)
--- NOTE | 2019-06-04 09:15 | PDOC ---
Provider Note Provider Note afeb, vss, mult more stools last pm but feels better- will dc iv saline, await stool cult/ c diff- re etiology- rest orders same- NEEDS TO BE IN HOSPITAL VERNA GARCIA MD Jun 04, 2019 09:15
[2019-06-04] MEDS: ASPIRIN CHEWABLE 81 MG TABLET. PO SCH (09:16)
[2019-06-04] MEDS: DULoxetine HCL 30 MG CAPSULE.DR PO SCH ×2 (09:16→21:23)
[2019-06-04] MEDS: MULTIVITAMIN with MINERAL TABLET. PO SCH (09:16)
[2019-06-04] MEDS: CARVEDILOL 12.5 MG TABLET. PO SCH ×2 (09:16→17:17)
[2019-06-04] MEDS: GABAPENTIN 300 MG CAPSULE. PO SCH ×2 (09:16→21:23)
[2019-06-04] MEDS: INSULIN GLARGINE SYRINGE. SQ SCH ×2 (09:23→18:59)
--- NOTE | 2019-06-04 11:26 | PDOC ---
SUBJECTIVE ROS Stable OBJECTIVE Vital Signs Vital Signs Date Time Temp Pulse Resp B/P (MAP) Pulse Ox O2 Delivery O2 Flow Rate FiO2 06/04/19 09:16 83 101/43 06/04/19 08:00 Room Air 06/04/19 07:59 98.0 20 91 98.0 I & 0 Intake and Output 06/04/19 07:00 Intake Total 240 ml Output Total 200 ml Balance 40 ml Intake Oral 240 ml Output Urine Total 200 ml # Bowel Movements 9 PHYSICAL EXAM Physical Exam GEN: NAD, morbidly obese HEEN: OM moist NECK: supple CVS: RRR RESP: CTA, Non labored GI: Obese, NT, soft, PD catheter +, No e/o exit sit infection NEURO- Grossly normal SKIN- No rash No SP or CVA tenderness, No Toro DIAGNOSIS/ASSESSMENT Assessment & Plan ESRD- On PD under Dr Waggoner's care 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 Hypertension, blood pressure is a little low from dehydration. Torsemide held, COMMENT/RELEVANT DATA Meds Current Medications Medications (Trade) Dose Ordered Sig/Mya Start Time Stop Time Status Last Admin Dose Admin Acetaminophen/ Hydrocodone Bitart (Lortab 5/325) 1 tab PRN Q4HRS PRN 06/04/19 02:15 06/04/19 02:47 1 TAB Aspirin (Children'S Aspirin) 81 mg DAILY 06/03/19 11:00 06/04/19 09:16 81 MG Atorvastatin Calcium (Lipitor) 40 mg QHS 06/03/19 21:00 06/03/19 21:05 40 MG Bisacodyl (Dulcolax Tab) 5 mg DAILY 06/03/19 11:00 Carvedilol (Coreg) 25 mg BIDWMEALS 06/03/19 11:00 06/04/19 09:16 25 MG Duloxetine HCl (Cymbalta) 30 mg BID 06/03/19 11:00 06/04/19 09:16 30 MG Gabapentin (Neurontin) 300 mg BID 06/03/19 11:00 06/04/19 09:16 300 MG Insulin Glargine (Lantus Syringe) 75 unit BID@0700,1900 06/03/19 19:00 06/04/19 09:23 75 UNIT Montelukast Sodium (Singulair) 10 mg HS 06/03/19 21:00 06/03/19 21:04 10 MG Morphine Sulfate (Morphine Sulfate) 4 mg PRN Q2HR PRN 06/02/19 22:15 06/03/19 22:14 DC Multivitamins (Thera M Plus) 1 tab DAILY 06/03/19 11:00 06/04/19 09:16 1 TAB Ondansetron HCl (Zofran) 4 mg PRN Q8HRS PRN 06/02/19 22:15 06/03/19 22:14 DC Phenyleph/Shark Oil/Min Oil/Petrol (Preparation H) 1 jackie PRN QID PRN 06/04/19 02:30 06/04/19 06:43 1 JACKIE Sodium Chloride 1,000 ml @ 75 mls/hr [id number] 06/02/19 22:15 06/04/19 09:14 DC 06/04/19 05:56 75 MLS/HR Torsemide (Demadex) 40 mg [id number] 06/03/19 14:00 06/03/19 10:58 DC Trazodone HCl (Desyrel) 150 mg QHS 06/03/19 21:00 06/03/19 21:05 150 MG Lab Laboratory Tests Test 06/03/19 11:52 06/03/19 16:04 06/03/19 21:20 06/04/19 08:14 Glucose (Fingerstick) 153 mg/dL (70-99) 176 mg/dL (70-99) 195 mg/dL (70-99) 151 mg/dL (70-99) Results All relevant outside records, renal labs, imaging studies, telemetry/EKG's were reviewed. FLORINA TRONCOSO MD Jun 04, 2019 11:26
[2019-06-04 11:59] VITALS: BP 132/58
[2019-06-04 15:59] VITALS: BP 122/50
[2019-06-04 19:00] VITALS: BP 117/53
[2019-06-04] MEDS: MONTELUKAST SODIUM 10 MG TABLET. PO SCH (21:23)
[2019-06-04] MEDS: ATORVASTATIN CALCIUM 40 MG TABLET. PO SCH (21:23)
[2019-06-04] MEDS: traZODone 100 MG TABLET. PO SCH (21:24)
[2019-06-04 23:10] VITALS: BP 118/61
[2019-06-05 03:00] VITALS: BP 109/50
[2019-06-05 07:00] VITALS: BP 119/56
[2019-06-05] MEDS: INSULIN GLARGINE SYRINGE. SQ SCH ×2 (07:00→21:00)
--- NOTE | 2019-06-05 09:02 | PDOC ---
Provider Note Provider Note afeb but more diarrhea still, nonbloody- no pain, nausea, fever- c diff neg, culture pending re ? bacterial enteritis- ? overgrowth syndrome re DM- will get gi consult , add empiric cipro pending cult VERNA GARCIA MD Jun 05, 2019 09:02
--- NOTE | 2019-06-05 09:25 | NUR ---
SW following. Discussed with RN, pt is from home, has PD. RN ordering PT/OT due to rehab screen being entered. Clear liquid diet currently. SW will continue to follow.
[2019-06-05] MEDS: GABAPENTIN 300 MG CAPSULE. PO SCH ×2 (10:34→21:06)
[2019-06-05] MEDS: MULTIVITAMIN with MINERAL TABLET. PO SCH (10:35)
[2019-06-05] MEDS: DULoxetine HCL 30 MG CAPSULE.DR PO SCH ×2 (10:35→21:06)
[2019-06-05] MEDS: ASPIRIN CHEWABLE 81 MG TABLET. PO SCH (10:35)
[2019-06-05] MEDS: CARVEDILOL 12.5 MG TABLET. PO SCH ×2 (10:36→16:35)
[2019-06-05] MEDS: HYDROcodone/APAP 5/325MG 1 TAB TABLET PO PRN ×2 (10:37→16:34)
[2019-06-05 11:00] VITALS: BP 124/48
--- NOTE | 2019-06-05 11:41 | PDOC2 ---
GI CONSULT Reason For Consult: Diarrhea HPI: HPI: Pleasant 54 y/o female w/ diarrhea since last Wednesday (05/29/19). Admitted 06/02. 8-12 watery/mushy stools in a 24 hours period, often w/ incontinence at night. No precipitating events including travel, sick contacts, new medications. Perhaps decreased appetite but mostly trying to eat less (only on clears here) because tries to avoid more diarrhea. Rectal pain c/w external hemorrhoid pain, also some back and shoulder pain. Taking hydrocodone PRN for this which slow diarrhea (but then recurs). In and out of the hospital recently, fairly new to PD. C Diff negative and stool culture pending. Empirically started on Cipro today. Denies reflux/heartburn, dysphagia, n/v, abd pain, hematochezia, or melena. Typically more on the constipated side, takes stool softener at home. Has gained 10 pounds in the past week, wonders if more fluid could be taken off during dialysis. No previous EGD. Reports normal colonoscopy ~5 years ago in [place]. No GB, liver, pancreas, or PUD history. Takes ASA 81mg QD. Chronic anemia. PMH: PMH: HTN, COPD, HLD, DM w/ retinopathy and neuropathy, UTI, Charcot foot tonsillectomy, tubal ligation, left knee arthroscopy x 2, PD cath placement/revision w/ umbilical hernia repair FH: Family History: Cancer, DM, Hypertension Social History: Smoke: Quit ALCOHOL: none Drugs: None ROS: GEN: Denies fevers, chills, sweats HEENT: Denies blurred vision, sore throat CV: Denies chest pain RESP: Denies shortness of air, cough GI: Per HPI : Denies hematuria, dysuria ENDO: weight gain NEURO: Denies confusion, dizziness MSK: back and shoulder pain SKIN: Denies jaundice, pruritus Vitals: Vitals: Vital Signs Date Time Temp Pulse Resp B/P (MAP) Pulse Ox O2 Delivery O2 Flow Rate FiO2 06/05/19 10:37 20 Room Air 06/05/19 10:36 86 119/56 06/05/19 07:00 97.9 93 97.9 Labs: Labs: Laboratory Tests Test 06/04/19 11:33 06/04/19 17:22 06/04/19 20:21 Glucose (Fingerstick) 155 mg/dL (70-99) 178 mg/dL (70-99) 249 mg/dL (70-99) Allergies: Coded Allergies: morphine (Verified Adverse Reaction, Severe, Nausea and Vomiting, 03/07/19) Imaging: Imaging: - PE: GEN: NAD, BMI 54 HEENT: Atraumatic, PERRL LUNGS: CTAB HEART: RRR ABD: NABS, soft, PD cath, non-tender, large EXTREMITY: trace edema BLE SKIN: No rashes, no jaundice NEURO/PSYCH: A & O 3 A/P: A/P: Diarrhea - began a week ago, C Diff negative, improved w/ hydrocodone for back/shoulder pain Rectal pain, h/o external hemorrhoid Chronic anemia ESRD on PD, weight gain CRC screen - UTD BMI 54, Charcot foot -- Reviewed w/ Dr. Martínez - await stool culture. Anemia parameters for completeness. Could consider advancing diet beyond clears. JOSEPH GARLAND Jun 05, 2019 11:41
--- NOTE | 2019-06-05 11:53 | PDOC ---
Renal-Progress Notes Subjective Notes Notes STILL HAVING DIARRHEA History of Present Illness Hx of present illness STABLE Vitals Vitals Vital Signs Date Time Temp Pulse Resp B/P (MAP) Pulse Ox O2 Delivery O2 Flow Rate FiO2 06/05/19 10:37 20 Room Air 06/05/19 10:36 86 119/56 06/05/19 07:00 97.9 93 97.9 Weight Weight [ ] I.O. Intake and Output Intake and Output 06/05/19 07:00 Intake Total 300 ml Balance 300 ml Intake Oral 300 ml # Voids 1 # Bowel Movements 3 Labs Labs Laboratory Tests Test 06/04/19 17:22 06/04/19 20:21 06/05/19 11:45 Glucose (Fingerstick) 178 mg/dL (70-99) 249 mg/dL (70-99) 138 mg/dL (70-99) Review of Systems Constitutional: yes: weakness, alert, oriented Ears/Nose/Throat: Yes: no symptom reported Eyes: Yes: no symptom reported Pulmonary: Yes no symptom reported Cardiovascular: Yes no symptom reported Gastrointestional: Yes: diarrhea Genitourinary: Yes: no symptom reported Musculoskeletal: Yes: muscle stiffness Skin: Yes no symptom reported Psychiatric/Neurological: Yes: no symptom reported Endocrine: Yes: no symptom reported Physical Exam General Appearance: no apparent distress Skin: warm Respiratory: decreased breath sounds Heart: S1S2 Abdomen: soft, bowel sounds present Genitourinary: bladder flat Extremities: pulses present Neurology: alert Assessment Assessment IMP ESRD GASTROENTERITIS ANEMIA DM II HTN PLAN ARANESP CONT APD GI EVAL AND TX WILL FOLLOW CARTER PEREZ MD Jun 05, 2019 11:53
[2019-06-05 15:00] VITALS: BP 151/63
[2019-06-05] MEDS: CIPROFLOXACIN HCL 250 MG TABLET. PO SCH (16:30)
[2019-06-05 19:00] VITALS: BP 86/37
[2019-06-05] MEDS ORDERED: DARBEPOETIN ALFA 60 MCG/0.3 ML DISP.SYRIN. SQ ONE (21:00)
[2019-06-05] MEDS: MONTELUKAST SODIUM 10 MG TABLET. PO SCH (21:06)
[2019-06-05] MEDS: traZODone 100 MG TABLET. PO SCH (21:06)
[2019-06-05] MEDS: ATORVASTATIN CALCIUM 40 MG TABLET. PO SCH (21:09)
[2019-06-05 23:00] VITALS: BP 114/57
[2019-06-06 03:00] VITALS: BP 150/68
[2019-06-06 06:18] LABS: CALCIUM 8.5 mg/dL (8.5-10.1); CREATININE 3.4 mg/dL (0.6-1.0)
[2019-06-06 07:00] VITALS: BP 152/66
--- NOTE | 2019-06-06 08:16 | PDOC ---
Provider Note Provider Note feels burak , josiah less diarrhea 24 hrs but 1 dose norco- stool cult pending, will cont cipro pending same, will likely need colonoscopy if cipro fails VERNA GARCIA MD Jun 06, 2019 08:16
[2019-06-06] MEDS: INSULIN GLARGINE SYRINGE. SQ SCH (09:00)
--- NOTE | 2019-06-06 10:17 | PDOC ---
Subjective: Subjective: No stools since last night, thinks possibly related to taking hydrocodone for back and leg pain. Feels better. Tolerating clears w/ plans to advance diet. Objective: Vital Signs: Vital Signs Date Time Temp Pulse Resp B/P (MAP) Pulse Ox O2 Delivery O2 Flow Rate FiO2 06/06/19 07:00 97.6 76 17 152/66 (94) 94 Room Air 97.6 Labs: Laboratory Tests Test 06/05/19 11:45 06/05/19 12:11 06/05/19 17:14 06/05/19 20:36 Glucose (Fingerstick) 138 mg/dL 120 mg/dL 143 mg/dL Iron Level 39 ug/dL Total Iron Binding Capacity 204 ug/dL Iron Saturation 19 % Vitamin B12 Level 710 pg/mL Test 06/06/19 06:00 06/06/19 07:44 Sodium Level 130 mmol/L Potassium Level 4.0 mmol/L Chloride Level 96 mmol/L Carbon Dioxide Level 24 mmol/L Anion Gap 10 Blood Urea Nitrogen 59 mg/dL Creatinine 3.4 mg/dL Estimated GFR (Cockcroft-Gault) 14.0 Glucose Level 138 mg/dL Calcium Level 8.5 mg/dL Glucose (Fingerstick) 126 mg/dL PE: GEN: NAD - up to chair, looks better today, tray of clears 100% consumed LUNGS: CTAB HEART: RRR ABD: NS/ND/NT, PD cath NEURO/PSYCH: A & O 3 A/P: Diarrhea - better? stool cx pending, C Diff neg, on empiric Cipro ACD -- ADAT, await stool culture, consider colonoscopy if diarrhea doesn't improve. Hemodynamically unstable?: No Is patient in severe pain?: No Is NPO status required?: No JOSEPH GARLAND Jun 06, 2019 10:17
[2019-06-06] MEDS: MULTIVITAMIN with MINERAL TABLET. PO SCH (10:18)
[2019-06-06] MEDS: CARVEDILOL 12.5 MG TABLET. PO SCH ×2 (10:18→17:10)
[2019-06-06] MEDS: ASPIRIN CHEWABLE 81 MG TABLET. PO SCH (10:18)
[2019-06-06] MEDS: CIPROFLOXACIN HCL 250 MG TABLET. PO SCH (10:18)
[2019-06-06] MEDS: GABAPENTIN 300 MG CAPSULE. PO SCH (10:18)
[2019-06-06] MEDS: DULoxetine HCL 30 MG CAPSULE.DR PO SCH (10:18)
--- NOTE | 2019-06-06 10:39 | PDOC ---
Renal-Progress Notes Subjective Notes Notes LESS DIARRHEA History of Present Illness Hx of present illness STABLE Vitals Vitals Vital Signs Date Time Temp Pulse Resp B/P (MAP) Pulse Ox O2 Delivery O2 Flow Rate FiO2 06/06/19 10:18 76 152/66 06/06/19 08:00 Room Air 06/06/19 07:00 97.6 17 94 97.6 Weight Weight [ ] I.O. Intake and Output Intake and Output 06/06/19 07:00 Intake Total 900 ml Output Total 100 ml Balance 800 ml Intake Oral 900 ml Output Urine Total 100 ml # Voids 1 Labs Labs Laboratory Tests Test 06/05/19 11:45 06/05/19 12:11 06/05/19 17:14 06/05/19 20:36 Glucose (Fingerstick) 138 mg/dL (70-99) 120 mg/dL (70-99) 143 mg/dL (70-99) Iron Level 39 ug/dL (50-170) Total Iron Binding Capacity 204 ug/dL (250-450) Iron Saturation 19 % (15-34) Vitamin B12 Level 710 pg/mL (247-911) Test 06/06/19 06:00 06/06/19 07:44 Sodium Level 130 mmol/L (136-145) Potassium Level 4.0 mmol/L (3.5-5.1) Chloride Level 96 mmol/L (98-107) Carbon Dioxide Level 24 mmol/L (21-32) Anion Gap 10 (6-14) Blood Urea Nitrogen 59 mg/dL (7-20) Creatinine 3.4 mg/dL (0.6-1.0) Estimated GFR (Cockcroft-Gault) 14.0 Glucose Level 138 mg/dL (70-99) Calcium Level 8.5 mg/dL (8.5-10.1) Glucose (Fingerstick) 126 mg/dL (70-99) Micro Micro Microbiology 06/02/19 Urine Culture - Final, Complete 06/02/19 Urine Culture Result 1 (MAURI) - Final, Complete Review of Systems Constitutional: yes: weakness, alert, oriented Ears/Nose/Throat: Yes: no symptom reported Eyes: Yes: no symptom reported Pulmonary: Yes no symptom reported Cardiovascular: Yes no symptom reported Gastrointestional: Yes: diarrhea Genitourinary: Yes: no symptom reported Musculoskeletal: Yes: muscle stiffness Skin: Yes no symptom reported Psychiatric/Neurological: Yes: no symptom reported Endocrine: Yes: no symptom reported Physical Exam General Appearance: no apparent distress Skin: warm Respiratory: decreased breath sounds Heart: S1S2 Abdomen: soft, bowel sounds present Genitourinary: bladder flat Extremities: pulses present Neurology: alert Assessment Assessment IMP ESRD GASTROENTERITIS MILD HYPONATREMIA ANEMIA DM II HTN PLAN ARANESP CONT APD GI EVAL AND TX WILL FOLLOW CARTER PEREZ MD Jun 06, 2019 10:39
--- NOTE | 2019-06-06 10:54 | NUR ---
KANDY following. Discussed with RN. PT/OT recommending acute rehab. KANDY met with pt, pt does not want to go to acute rehab or prison, would like to do outpatient therapy here at [facility]. Pt reported she can arrange transportation to get her here. SW to send referral to [facility] outpatient therapy. Pt requested assistance getting roller walker with a seat. Pt reports she had one for about 7 years from [facility] that was very sturdy. Pt then purchased one from [facility] for about $70 but the wheels are buckling. Pt has a boot on her foot which weighs about 2.5lbs so is needing the walker and seat. SW will need a script for this walker to try get through pt's insurance, as well as documentation stating pt is needing this for activities of daily living. KANDY will continue to follow. Addendum: 06/06/19 at 1649 by MILVIA GAITAN KANDY faxed walker referral to [facility]. KANDY confirmed Tangela received the order and paperwork. [facility] have contacted pt and will work on getting a walker delivered to pt's home. [facility] outpatient therapy could not read the faxed nursing free text order, KANDY hand delivered the therapy order to [facility] outpatient therapy, they will need to contact Dr. Andersen to get different orders. [facility] outpatient therapy will contact patient to arrange a time. Pt can discharge from SW standpoint as walker and therapy have been arranged. RN notified. KANDY will continue to follow.
[2019-06-06 11:00] VITALS: BP 139/40
[2019-06-06] MEDS ORDERED: CIPR250S2 PO (13:54)
[2019-06-06] MEDS ORDERED: CIPR250T PO (13:59)
[2019-06-06 15:00] VITALS: BP 129/59
[2019-06-06 17:10] VITALS: BP 106/69
--- NOTE | 2019-06-06 18:02 | NUR ---
This RN called in pt's prescription of Ciprofloxacin 250 mg PO daily to [facility] at [phone].
--- NOTE | 2019-06-06 18:37 | NUR ---
Pt left unit at approx 1830 by wheelchair via private vehicle. Pt's IV removed without complication. VSS upon discharge. Discharge paperwork discussed and sent with pt at time of discharge.
[2019-06-06] MEDS ORDERED: LACTOBACILLUS RHAMNOSUS GG 1 CAPSULE. PO SCH (21:00)
--- NOTE | 2019-06-07 08:35 | PDOC ---
Provider Note Provider Note [id number] Hemodynamically unstable?: No Is patient in severe pain?: No Is NPO status required?: No VERNA GARCIA MD Jun 07, 2019 08:35
--- NOTE | 2019-06-07 09:38 | DS ---
DATE OF DISCHARGE: 06/06/2019 HOSPITAL SUMMARY: A 54-year-old white female, who came in with 4 or 5 days of aggressive diarrhea, weakness, dehydration and muscle spasms. Hemoglobin was 10 consistent with normal values. Creatinine was 3.4 consistent with her end-stage renal disease and blood sugar levels remained in good control. B12 was normal. Iron and TIBC were low consistent with the chronic disease and magnesium was normal at 2.1. C. diff toxin was negative. Urine was clear and stool culture pending at this time. Diarrhea persisted despite IV fluids and bowel rest and Cipro was started pending stool cultures for the possibility of a bacterial enteritis. She was feeling better and able to be discharged, and follow as an outpatient knowing that if her stool cultures are negative and diarrhea persists, then a colonoscopy would likely be the next step to look for some sort of new colitis process at work. FINAL DIAGNOSES: 1. Acute diarrhea, etiology undetermined. 2. Dehydration secondary to persistent diarrhea, resolved. 3. End-stage renal disease, on peritoneal dialysis. 4. Anemia of chronic disease. OPERATIONS, PROCEDURES, COMPLICATIONS: None. CONSULTATIONS: Dr. Rawls and Dr. Martínez. DISPOSITION: She will take 4 more days of Cipro 250 mg daily after each home dialysis. Stool culture pending and she will see Dr. Martínez if this diarrhea persists, consider the addition of colestipol short-term pending a diagnosis. PROGNOSIS: Good. VERNA GARCIA MD DR: GEMA/batool JOB#: [id number] / [id number]
== END 2019-06-06 18:43 | disposition home or self-care (01) | DRG 371 ==
LOC: ER 18:07 → 5 SOUTH 21:00
PROVIDERS: ADMIT Family Medicine; ATTEND Family Medicine
PROC: 3E1M39Z Irrigation of Peritoneal Cavity using Dialysate, Percutaneous Approach (ICD-10-PCS; 2019-06-03)
PROC: 3E1M39Z Irrigation of Peritoneal Cavity using Dialysate, Percutaneous Approach (ICD-10-PCS; 2019-06-04)
PROC: 3E1M39Z Irrigation of Peritoneal Cavity using Dialysate, Percutaneous Approach (ICD-10-PCS; principal; 2019-06-05)
DX: A04.9 Bacterial intestinal infection, unspecified (principal); N18.6 End stage renal disease; I12.0 Hypertensive chronic kidney disease with stage 5 chronic kidney disease or end stage renal disease; N17.9 Acute kidney failure, unspecified; E87.1 Hypo-osmolality and hyponatremia; E86.0 Dehydration; D63.8 Anemia in other chronic diseases classified elsewhere; E11.22 Type 2 diabetes mellitus with diabetic chronic kidney disease; E11.319 Type 2 diabetes mellitus with unspecified diabetic retinopathy without macular edema; E11.40 Type 2 diabetes mellitus with diabetic neuropathy, unspecified; E78.00 Pure hypercholesterolemia, unspecified; E78.5 Hyperlipidemia, unspecified; K52.9 Noninfective gastroenteritis and colitis, unspecified; E21.3 Hyperparathyroidism, unspecified; K62.89 Other specified diseases of anus and rectum; J44.9 Chronic obstructive pulmonary disease, unspecified; Z79.4 Long term (current) use of insulin; Z79.82 Long term (current) use of aspirin; Z82.49 Family history of ischemic heart disease and other diseases of the circulatory system; Z83.3 Family history of diabetes mellitus; Z98.51 Tubal ligation status; Z88.5 Allergy status to narcotic agent; Z99.2 Dependence on renal dialysis
CPT/HCPCS: 36415; 80048; 80053; 81001; 82607; 82962; 83540; 83550; 83690; 83735; 85025; 87045; 87086; 87493; 96360; 96361; J0881; J1815; J7030; 97530; 97535; 99285-25; G0378

== ENCOUNTER 2019-06-09 16:57 | Emergency (ER) | payer MEDICARE, MEDICAID ==
[~2019-06-09] VITALS: Ht 160 cm; Wt 140.0 kg
[~2019-06-09 16:57] MED LIST changes: +CIPR250S2 PO; +CIPR250T PO; +TRAZ150T49 PO
[2019-06-09] MEDS ORDERED: fentaNYL PF VIAL 100 MCG/2 ML VIAL IV STA (18:35)
[2019-06-09] MEDS ORDERED: DICYCLOMINE HCL 10 MG CAPSULE PO STA (18:35)
[2019-06-09] MEDS ORDERED: ONDANSETRON PF 4 MG/2 ML VIAL. IV ONE (18:45)
[2019-06-09] MEDS ORDERED: IV NORMAL SALINE 500ML BAG 500 ML IV ONE (18:45)
[2019-06-09 18:54] LABS: BILIRUBIN,URINE NEGATIVE (NEG); CLARITY,URINE CLEAR; COLOR,URINE YELLOW; NITRITE,URINE NEGATIVE (NEG); PH,URINE 5.5; PROTEIN,URINE NEGATIVE (NEG-TRACE); SQUAMOUS EPITHELIAL CELL,UR MANY /LPF; UROBILINOGEN,URINE 0.2 mg/dL (0.2 mg/dL)
[2019-06-09 18:55] LABS: BACTERIA,URINE MANY /HPF (0-FEW)
[2019-06-09 18:56] LABS: RBC,URINE 0 /HPF (0-2)
--- NOTE | 2019-06-09 19:08 | PHYS DOC ---
Past Medical History Past Medical History: Diabetes-Type II, High Cholesterol, Hypertension, Renal Failure Additional Past Medical Histor: Stage IV Kidney, sleep apnea (RADHA QUINONES APRN) Past Surgical History: Tubal ligation Additional Past Surgical Histo: Knee surgery, PD CATHETER (RADHA QUINONES APRN) Alcohol Use: None Drug Use: None (RADHA QUINONES APRN) Attending Signature I have participated in the care of this patient and I have reviewed and agree with all pertinent clinical information above including history, exam, and recommendations. (RICH BELLAMY MD) Adult General Chief Complaint Chief Complaint: DIARRHEA HPI HPI Patient is a 54 year old female who presents with nausea, vomiting, diarrhea this been ongoing for 12 days. Patient also states that she's been having generalized weakness. She reports associated symptoms of abdominal cramping. She states that the weakness started on Wednesday. The patient states that she was recently admitted the hospital for this issue and it hasn't improved. Denies any additional symptoms. Complete ROS were reviewed and found to be within normal limits, except as documented in the HPI (RADHA QUINONES APRN) Current Medications Current Medications Current Medications Medications (Trade) Dose Ordered Sig/Mya Start Time Stop Time Status Last Admin Dose Admin Dicyclomine HCl (Bentyl) 10 mg 1X STAT 06/09/19 18:35 06/09/19 18:39 DC 06/09/19 19:41 10 MG Fentanyl Citrate (Fentanyl 2ml Vial) 50 mcg 1X STAT 06/09/19 18:35 06/09/19 18:39 DC 06/09/19 19:41 50 MCG Ondansetron HCl (Zofran) 4 mg 1X ONCE 06/09/19 18:45 06/09/19 18:46 DC 06/09/19 19:40 4 MG Sodium Chloride 500 ml @ 500 mls/hr 1X ONCE 06/09/19 18:45 06/09/19 19:44 DC 06/09/19 19:44 500 MLS/HR (RICH BELLAMY MD) Allergies Allergies Allergies Coded Allergies Type Severity Reaction Last Updated Verified morphine Adverse Reaction Severe Nausea and Vomiting 03/07/19 Yes (RICH BELLAMY MD) Physical Exam Physical Exam Constitutional: Well developed, well nourished, no acute distress, non-toxic appearance. [] HENT: Normocephalic, atraumatic, bilateral external ears normal, oropharynx moist, no oral exudates, nose normal. [] Eyes: PERRLA, EOMI, conjunctiva normal, no discharge. [] Neck: Normal range of motion, no tenderness, supple, no stridor. [] Cardiovascular:Heart rate regular rhythm, no murmur [] Lungs & Thorax: Bilateral breath sounds clear to auscultation [] Abdomen: Bowel sounds normal, soft, no tenderness, no masses, no pulsatile masses. [] Skin: Warm, dry, no erythema, no rash. [] Back: No tenderness, no CVA tenderness. [] Extremities: No tenderness, no cyanosis, no clubbing, ROM intact, no edema. [] Neurologic: Alert and oriented X 3, normal motor function, normal sensory function, no focal deficits noted. [] Psychologic: Affect normal, judgement normal, mood normal. [] (RADHA QUINONES APRN) Current Patient Data Vital Signs Vital Signs Date Time Temp Pulse Resp B/P (MAP) Pulse Ox O2 Delivery O2 Flow Rate FiO2 06/09/19 20:49 80 11 103/56 (72) 97 Nasal Cannula 2.0 06/09/19 17:20 98.1 98.1 (RICH BELLAMY MD) Lab Values Laboratory Tests Test 06/09/19 17:25 06/09/19 20:00 06/09/19 20:05 Urine Collection Type Unknown Urine Color Yellow Urine Clarity Clear Urine pH 5.5 Urine Specific [place] 1.020 Urine Protein Negative mg/dL (NEG-TRACE) Urine Glucose (UA) Negative mg/dL (NEG) Urine Ketones (Stick) Negative mg/dL (NEG) Urine Blood Negative (NEG) Urine Nitrite Negative (NEG) Urine Bilirubin Negative (NEG) Urine Urobilinogen Dipstick 0.2 mg/dL (0.2 mg/dL) Urine Leukocyte Esterase Negative (NEG) Urine RBC 0 /HPF (0-2) Urine WBC 1-4 /HPF (0-4) Urine Squamous Epithelial Cells Many /LPF Urine Bacteria Many /HPF (0-FEW) Urine Mucus Mod /LPF White Blood Count 9.8 x10^3/uL (4.0-11.0) Red Blood Count 3.08 x10^6/uL (3.50-5.40) L Hemoglobin 9.4 g/dL (12.0-15.5) L Hematocrit 28.4 % (36.0-47.0) L Mean Corpuscular Volume 92 fL (79-100) Mean Corpuscular Hemoglobin 30 pg (25-35) Mean Corpuscular Hemoglobin Concent 33 g/dL (31-37) Red Cell Distribution Width 18.7 % (11.5-14.5) H Platelet Count 207 x10^3/uL (140-400) Neutrophils (%) (Auto) 67 % (31-73) Lymphocytes (%) (Auto) 22 % (24-48) L Monocytes (%) (Auto) 6 % (0-9) Eosinophils (%) (Auto) 4 % (0-3) H Basophils (%) (Auto) 1 % (0-3) Neutrophils # (Auto) 6.6 x10^3/uL (1.8-7.7) Lymphocytes # (Auto) 2.1 x10^3/uL (1.0-4.8) Monocytes # (Auto) 0.6 x10^3/uL (0.0-1.1) Eosinophils # (Auto) 0.4 x10^3/uL (0.0-0.7) Basophils # (Auto) 0.1 x10^3/uL (0.0-0.2) Sodium Level 132 mmol/L (136-145) L Potassium Level 4.9 mmol/L (3.5-5.1) Chloride Level 102 mmol/L (98-107) Carbon Dioxide Level 20 mmol/L (21-32) L Anion Gap 10 (6-14) Blood Urea Nitrogen 61 mg/dL (7-20) H Creatinine 3.8 mg/dL (0.6-1.0) H Estimated GFR (Cockcroft-Gault) 12.3 BUN/Creatinine Ratio 16 (6-20) Glucose Level 78 mg/dL (70-99) Lactic Acid Level 0.9 mmol/L (0.4-2.0) Calcium Level 8.2 mg/dL (8.5-10.1) L Magnesium Level 2.1 mg/dL (1.8-2.4) Total Bilirubin 0.2 mg/dL (0.2-1.0) Aspartate Amino Transferase (AST) 21 U/L (15-37) Alanine Aminotransferase (ALT) 15 U/L (14-59) Alkaline Phosphatase 104 U/L (46-116) Total Protein 5.8 g/dL (6.4-8.2) L Albumin 2.1 g/dL (3.4-5.0) L Albumin/Globulin Ratio 0.6 (1.0-1.7) L Lipase 92 U/L (73-393) Glucose (Fingerstick) 72 mg/dL (70-99) Laboratory Tests 06/09/19 20:00 Laboratory Tests 06/09/19 20:00 (RICH BELLAMY MD) EKG EKG [] (RADHA QUINONES APRN) Radiology/Procedures Radiology/Procedures [][facility] [address] [place] [address] IMAGING REPORT Signed PATIENT: HAVEN TITUS ACCOUNT: [id number] : 1965 LOCATION: ER AGE: 54 SEX: F EXAM STATUS: PRE ER ORD. PHYSICIAN: RADHA QUINONES APRN REASON: abd pain PROCEDURE: CT ABDOMEN PELVIS WO CONTRAST Examination: CT ABDOMEN PELVIS WO CONTRAST History: Abdominal pain Comparison/Correlation: None Findings: Axial images of the abdomen and pelvis were obtained without contrast. Sagittal and coronal reformatted images were provided. Mitral annular calcification is present. Minimal interstitial thickening in the lung bases noted. Minimal extraluminal gas is noted at the nondependent upper abdomen. This is presumably related to the presence of a left lower abdominal and pelvic level peritoneal dialysis catheter. Liver, spleen, pancreas, adrenal glands, and gallbladder fossa are unremarkable. No hydronephrosis or hydroureter. No radiopaque collecting system calculi identified. Stomach is distended with debris and fluid. No significant distention of bowel. Umbilical hernia contains omental fat. Appendix is normal. Urinary bladder is unremarkable. Uterus is not well delineated on this exam with no IV or oral contrast. Exaggerated lordosis of the lumbar spine is present. Impression: Minimal extraluminal gas present presumably related to the presence of the left sided peritoneal dialysis catheter. No acute inflammatory process or obstruction. PQRS Compliance Statement: One or more of the following individualized dose reduction techniques were utilized for this examination: 1. Automated exposure control 2. Adjustment of the mA and/or kV according to patient size 3. Use of iterative reconstruction technique Electronically signed by: Darryn Tinajero MD (06/09/2019 7:35 PM) [id number] DICTATED and SIGNED BY: DARRYN TINAJERO MD DATE: 06/09/191934 (RADHA QUINONES APRN) Course & Med Decision Making Course & Med Decision Making Pertinent Labs and Imaging studies reviewed. (See chart for details) Will get labs, CT, and UA. Will give supportive care. Labs are unremarkable. Impression: Minimal extraluminal gas present presumably related to the presence of the left sided peritoneal dialysis catheter. No acute inflammatory process or obstruction. (RADHA QUINONES APRN) Dragon Disclaimer Dragon Disclaimer This electronic medical record was generated, in whole or in part, using a voice recognition dictation system. (RADHA QUINONES APRN) Departure Departure Impression: Primary Impression: Nausea & vomiting Additional Impression: Diarrhea Disposition: 01 HOME, SELF-CARE Condition: STABLE Referrals: ADELIA RAMOS MD (PCP) Patient Instructions: Nausea and Vomiting Additional Instructions: Thank you for visiting [facility]. We appreciate you trusting us with your care. If any additional problems come up don't hesitate to return to visit us. Please follow up with your primary care provider so they can plan additional care if needed and know about the problem that you had. If symptoms worsen come back to the Emergency Department. Any concerning symptoms that start such as chest pain, shortness of air, weakness or numbness on one side of the body, running high fevers or any other concerning symptoms return to the ER. Scripts Ondansetron (ONDANSETRON ODT) 4 Mg Tab.rapdis 1 TAB PO PRN Q6-8HRS PRN for NAUSEA, #20 TAB Prov: RADHA QUINONES APRN 06/09/19 Dicyclomine Hcl (DICYCLOMINE HCL) 10 Mg Capsule 1 CAP PO PRN Q6HRS PRN for PAIN, #20 CAP 0 Refills Prov: RADHA QUINONES APRN 06/09/19 Problem Qualifiers Primary Impression: Nausea & vomiting Vomiting type: unspecified Vomiting Intractability: unspecified Qualified Codes: R11.2 - Nausea with vomiting, unspecified Additional Impression: Diarrhea Diarrhea type: unspecified type Qualified Codes: R19.7 - Diarrhea, unspecified RADHA QUINONES APRN Jun 09, 2019 19:08 RICH BELLAMY MD Jun 10, 2019 03:46
--- NOTE | 2019-06-09 19:38 | RAD ---
Examination: CT ABDOMEN PELVIS WO CONTRAST History: Abdominal pain Comparison/Correlation: None Findings: Axial images of the abdomen and pelvis were obtained without contrast. Sagittal and coronal reformatted images were provided. Mitral annular calcification is present. Minimal interstitial thickening in the lung bases noted. Minimal extraluminal gas is noted at the nondependent upper abdomen. This is presumably related to the presence of a left lower abdominal and pelvic level peritoneal dialysis catheter. Liver, spleen, pancreas, adrenal glands, and gallbladder fossa are unremarkable. No hydronephrosis or hydroureter. No radiopaque collecting system calculi identified. Stomach is distended with debris and fluid. No significant distention of bowel. Umbilical hernia contains omental fat. Appendix is normal. Urinary bladder is unremarkable. Uterus is not well delineated on this exam with no IV or oral contrast. Exaggerated lordosis of the lumbar spine is present. Impression: Minimal extraluminal gas present presumably related to the presence of the left sided peritoneal dialysis catheter. No acute inflammatory process or obstruction. PQRS Compliance Statement: One or more of the following individualized dose reduction techniques were utilized for this examination: 1. Automated exposure control 2. Adjustment of the mA and/or kV according to patient size 3. Use of iterative reconstruction technique Electronically signed by: Darryn Pina MD (06/09/2019 7:35 PM) [id number]
[2019-06-09 20:10] LABS: BASO # 0.1 x10^3/uL (0.0-0.2); BASO % 1 % (0-3); EOS # 0.4 x10^3/uL (0.0-0.7); EOS % 4 % (0-3); HEMATOCRIT 28.4 % (36.0-47.0); HEMOGLOBIN 9.4 g/dL (12.0-15.5); LYMPH # 2.1 x10^3/uL (1.0-4.8); LYMPH % 22 % (24-48); MEAN CORPUSCULAR HEMOGLOBIN 30 pg (25-35); MEAN CORPUSCULAR HGB CONC 33 g/dL (31-37); MEAN CORPUSCULAR VOLUME 92 fL (79-100); MONO # 0.6 x10^3/uL (0.0-1.1); MONO % 6 % (0-9); NEUT # 6.6 x10^3/uL (1.8-7.7); NEUT % 67 % (31-73); PLATELET COUNT 207 x10^3/uL (140-400); RED BLOOD COUNT 3.08 x10^6/uL (3.50-5.40); RED CELL DISTRIBUTION WIDTH 18.7 % (11.5-14.5); WHITE BLOOD COUNT 9.8 x10^3/uL (4.0-11.0)
[2019-06-09 20:39] LABS: ALBUMIN 2.1 g/dL (3.4-5.0); ALBUMIN/GLOBULIN RATIO 0.6 (1.0-1.7); CALCIUM 8.2 mg/dL (8.5-10.1); MAGNESIUM 2.1 mg/dL (1.8-2.4); POTASSIUM 4.9 mmol/L (3.5-5.1); TOTAL BILIRUBIN 0.2 mg/dL (0.2-1.0); TOTAL PROTEIN 5.8 g/dL (6.4-8.2)
[2019-06-09 20:47] LABS: CREATININE 3.8 mg/dL (0.6-1.0); GFR 12.3
[2019-06-09 20:49] VITALS: BP 103/56
[2019-06-09] MEDS ORDERED: DICY10CA3 PO (21:04)
[2019-06-09] MEDS ORDERED: ONDA4TAB12 PO (21:04)
== END 2019-06-09 21:03 | disposition home or self-care (01) ==
LOC: ER 16:57
DX: R11.2 Nausea with vomiting, unspecified (principal); R19.7 Diarrhea, unspecified; R53.1 Weakness; E11.22 Type 2 diabetes mellitus with diabetic chronic kidney disease; I12.9 Hypertensive chronic kidney disease with stage 1 through stage 4 chronic kidney disease, or unspecified chronic kidney disease; N18.4 Chronic kidney disease, stage 4 (severe); E78.00 Pure hypercholesterolemia, unspecified; Z99.2 Dependence on renal dialysis; Z98.51 Tubal ligation status; Z88.5 Allergy status to narcotic agent
CPT/HCPCS: 36415; 74176; 80053; 81001; 82962; 83605; 83690; 83735; 85025; 96374; 96375; 99285; J2405; J3010; J7040

== ENCOUNTER → 2019-06-27 | Outpatient (CLI) | payer MEDICARE, MEDICAID ==
[2019-06-09 20:49] VITALS: BP 103/56
[~2019-06-27] MED LIST changes: +DICY10CA3 PO; +ONDA4TAB12 PO
--- NOTE | 2019-06-28 18:20 | RAD ---
BILATERAL SCREENING MAMMOGRAM, 3-D History: Routine screening. Comparison: 08/21/2015, 12/20/2017 mammographic exams. Technique: MLO and CC digital tomosynthesis (3D) images obtained. Radiologist reviewed these images on dedicated workstation. Findings: Breast Tissue Density B : There are scattered areas of fibroglandular density. There are no dominant masses, suspicious microcalcifications, or architectural distortion. Asymmetry involving the inner aspect of the right cc view 7 cm from nipple is present with minimal associated calcification. This finding measures up to 0.5 cm diameter. IMPRESSION: Spot compression of the right inner breast asymmetry is recommended. Ultrasound may be needed. BI-RADS Category 0: Incomplete: Need additional imaging evaluation. The images were reviewed with computer-aided detection. Patient information is entered into reminder system with a target due date for the next screening mammogram. Mammography is the most sensitive method for finding small breast cancers, but it does not detect them all and is not a substitute for careful clinical examination. A negative mammogram does not negate a clinically suspicious finding and should not result in delay in biopsying a clinically suspicious abnormality. "Our facility is accredited by the [employer] Mammography Program." Electronically signed by: Darryn Pina MD (06/28/2019 6:17 PM) [email or web address]
== END | disposition home or self-care (01) ==
LOC: MAMMO 12:59
PROVIDERS: ATTEND Internal Medicine
DX: Z12.31 Encounter for screening mammogram for malignant neoplasm of breast (principal)
CPT/HCPCS: 77063; 77067

== ENCOUNTER → 2019-07-06 | Outpatient (CLI) | payer MEDICARE, MEDICAID ==
[2019-06-09 20:49] VITALS: BP 103/56
--- NOTE | 2019-07-06 14:11 | RAD ---
Bilateral digital diagnostic mammogram. INDICATION: Six-month follow-up probably benign calcifications in the upper-outer right breast. She is due for screening. COMPARISON: Screening mammograms of 09/27/2015, 06/04/2018, right diagnostic mammograms of 07/04/2018 and December 21, 2018 TECHNIQUE: CC and MLO views of the bilateral breasts were obtained with 2-D and 3-D technique and reviewed with computer-aided detection. A full-field right ML view was also obtained. FINDINGS: Heterogeneously dense breasts. The small cluster of punctate calcifications recommended for follow-up in the right breast are now associated with a spiculated 9 mm mass in the upper outer quadrant right breast. This represents a suspicious interval change from previous imaging. Patient however needs additional imaging with ultrasound of the right breast and axilla to assess for adenopathy and for a suitable sonographic correlate to serve as a biopsy target. This will be performed later the same day and reported separately. The left breast shows an 8 mm asymmetry in the posterior lower outer left breast best seen on cc tomographic image 14 of 56 at the approximate 5:00 position 7 cm from the nipple. This needs additional imaging with targeted left breast ultrasound. IMPRESSION: Incomplete. Both breasts needs additional imaging. Recommend ultrasound of the upper-outer quadrant right breast and right axilla. Recommend ultrasound of the lower-outer quadrant left breast. BI-RADS Category 0 Incomplete. Needs additional imaging evaluation. Patient entered into reminder system with target due date for next mammogram.
== END | disposition home or self-care (01) ==
LOC: MAMMO 12:40
PROVIDERS: ATTEND Internal Medicine
DX: R92.8 Other abnormal and inconclusive findings on diagnostic imaging of breast (principal); N64.89 Other specified disorders of breast
CPT/HCPCS: 77065

== ENCOUNTER → 2019-07-14 | Day surgery (SDC) | payer MEDICAID, MEDICARE ==
[~2019-07-14] MED LIST changes: +DEXTROSE 50% 25 GM / 50ML DISP.SYRIN. IV ONE; +IV NORMAL SALINE 1000ML BAG 1,000 ML IV ONE; +LIDOCAINE 2% PF 5 ML VIAL. ONE; +PROPOFOL 40 ML IV ONE
--- NOTE | 2019-07-14 09:00 | NUR ---
pt here and feels fine blood sugar rechecked as she said it was low at home at 9 am blood sugar was 55, 1/4 amp of D50 given as per anesthesia Dr Vaz orders. next blood sugar check at 0918 was 81, pt feels fine , another 1/4 amp of D50 given at 0925.
[2019-07-14 11:13] VITALS: BP 105/59
--- NOTE | 2019-07-17 13:07 | PATHOLOGY ---
[facility] Accession Number: [id number] . 01 Material submitted: . colon - RANDOM COLON BIOPSY . 01 Clinical history: . Abdominal pain, diarrhea, rule out microscopic colitis . 02 Diagnosis: Colonic mucosa, random colon biopsies: - No significant pathologic abnormalities. LBQ 07/17/2019 0950 Local . 02 Comment: Sections of the random colon biopsy reveal multiple segments of colonic mucosa. There is no evidence of a chronic destructive colitis, lymphocytic colitis, or collagenous colitis. (JPM/db; 07/17/2019) . 02 Electronically signed: . Gus Meyer MD, Pathologist NPI- [id number] . 01 Gross description: . The specimen is received in formalin, labeled "Terence Walker, random colon BX" and consists of multiple fragments of pink-nagy tissue measuring 1.5 x 0.7 x 0.3 cm in aggregate which are entirely submitted in A1. (SDY; 07/14/2019) SYU/SYU 07/14/2019 1749 Local . 02 Pathologist provided ICD-10: R10.9 . 02 CPT . 402729 Specimen Comment: A courtesy copy of this report has been sent to [phone], [phone] Specimen Comment: [id number] Specimen Comment: Report sent to / DR RAMOS Performed at: 01 [facility] [address], [place] [id number] MD Vito Barnett MD Phone: [phone] Performed at: 02 [facility] [address], [place] [id number] MD Gus Meyer MD Phone: [phone]
== END ==
LOC: ENDOS 08:25
PROVIDERS: ATTEND Internal Medicine Gastroenterology
DX: R19.7 Diarrhea, unspecified (principal); K29.50 Unspecified chronic gastritis without bleeding; K64.0 First degree hemorrhoids; E11.9 Type 2 diabetes mellitus without complications; J43.9 Emphysema, unspecified; I10 Essential (primary) hypertension; E78.00 Pure hypercholesterolemia, unspecified; F15.90 Other stimulant use, unspecified, uncomplicated; Z88.6 Allergy status to analgesic agent; Z72.89 Other problems related to lifestyle; Z87.891 Personal history of nicotine dependence; Z79.82 Long term (current) use of aspirin; Z98.51 Tubal ligation status; Z98.890 Other specified postprocedural states; Z79.84 Long term (current) use of oral hypoglycemic drugs
CPT/HCPCS: 43235; 45380; 82962; J2001; J2704; J7042

== ENCOUNTER → 2020-02-05 | Outpatient (CLI) | payer MEDICARE, MEDICAID ==
[2019-09-22 07:53] VITALS: BP 118/32
[~2020-02-05] MED LIST changes: +AZIT250T6 PO; -DEXTROSE 50% 25 GM / 50ML DISP.SYRIN. IV ONE; -IV NORMAL SALINE 1000ML BAG 1,000 ML IV ONE; -LIDOCAINE 2% PF 5 ML VIAL. ONE; -PROPOFOL 40 ML IV ONE; +SEVE800T9 PO; +SITA25TA PO
--- NOTE | 2020-02-06 14:22 | SLEEP ---
DATE OF STUDY: 02/05/2020 SLEEP STUDY ATTENDING PHYSICIAN: Adelia Barragan MD The patient is a 54-year-old who weighs 321 pounds with a BMI of 55. The patient had a sleep study 5 years ago and was positive for ZULAY, but the patient was unable to wear a CPAP. Another split night study was performed at [facility]. During the night study, the patient spent 412 minutes in bed and slept for 370 minutes with a sleep efficiency of 90%. Sleep latency was 4 minutes with a REM latency of 51 minutes. Sleep architecture showed normal stage 1 sleep, normal stage 2 sleep. Normal slow wave and reduced REM sleep, which is 14% of the total sleep time. During the initial diagnostic portion of the study, the patient slept for 76 minutes. During that time, the patient had 86 hypopneas, but no obstructive central or mixed apneas. The patient's AHI was 68 per hour. Supine sleep was not observed. REM sleep was not seen during the diagnostic portion. EKG monitoring revealed an average heart rate of 89 beats per minute, no arrhythmias observed. Nocturnal oximetry study revealed a mean oxygen saturation of 90%; the lowest of 67%. Twenty six minutes were spent in oxygen saturation between 80% and 89%. PLMS were seen at index of 30 per hour and 4 per hour caused EEG arousals. The patient met the criteria for CPAP initiation. The patient was unable to tolerate CPAP pressure of less than 12 cm water. The patient was started up to 20 cm water. However, the patient's AHI was still 7 per hour. The patient was switched to BiPAP at 24/18 and titrated up to 24/20. At the final pressure, the patient slept for 50 minutes. The patient's AHI was reduced to 1.2 per hour and oxygen saturation remained above 92%. IMPRESSION: 1. Severe obstructive sleep apnea at an AHI of 68 per hour. 2. Nocturnal hypoxia secondary to obstructive sleep apnea, but resolved with BiPAP. 3. Moderate periodic limb movements. RECOMMENDATIONS: 1. BiPAP at a pressure of 24/20, completely eliminated the patient's sleep apnea, should be used on a nightly basis. 2. Follow up in 4-6 weeks to assess compliance with BiPAP and to document clinical improvement. 3. Weight loss is strongly advised. 4. Avoid [employer] depressants. 5. Cautioned regarding driving until symptoms of sleep apnea resolve with the use of BiPAP. 6. The patient should also be further evaluated for symptoms of restless legs during the day. RAFAL SINHA MD DR: MARIO/batool JOB#: [id number] / [id number] ADELIA Piedra MD
== END | disposition home or self-care (01) ==
LOC: RT 19:11
PROVIDERS: ATTEND Internal Medicine Critical Care Medicine
DX: G47.33 Obstructive sleep apnea (adult) (pediatric) (principal); G47.34 Idiopathic sleep related nonobstructive alveolar hypoventilation; G47.61 Periodic limb movement disorder
CPT/HCPCS: 95810

== ENCOUNTER → 2020-02-05 | Outpatient (CLI) | payer MEDICARE, MEDICAID ==
[2019-09-22 07:53] VITALS: BP 118/32
--- NOTE | 2020-02-05 12:43 | CARD ---
MR#: [id number] Date of Study: 02/05/2020 Ordering Physician: HILLARY CASTRO, Referring Physician: HILLARY CASTRO, Tech: Tori Mock [facility] APPROVED REPORT EXAM: Two-dimensional and M-mode echocardiogram with Doppler and color Doppler. Other Information Quality : Good INDICATION Murmur 2D DIMENSIONS RVDd2.9 (2.9-3.5cm)Left Atrium(2D)4.5 (1.6-4.0cm) IVSd1.2 (0.7-1.1cm)Aortic Root(2D)3.1 (2.0-3.7cm) LVDd5.3 (3.9-5.9cm)LVOT Diameter2.3 (1.8-2.4cm) PWd1.2 (0.7-1.1cm)LVDs3.5 (2.5-4.0cm) FS (%) 34.0 %SV83.3 ml LVEF(%)62.4 (>50%) Aortic Valve AoV Peak Abraham.118.6cm/sAoV VTI24.6cm AO Peak GR.5.6mmHgLVOT Peak Abraham.81.7cm/s AO Mean GR.3mmHgAVA (VMAX)2.92cm2 JADA (VTI)3.00cm2 Mitral Valve MV E Hlhwyqmj67.1cm/sMV DECEL NKPX993xk MV A Ffhwpeyl333.4cm/sE/A Ratio0.9 Tricuspid Valve TR P. Gvkrscxx515xk/sRAP SRAVWDUB0evDy TR Peak Gr.99lfHqOZWC15egPf Pulmonary Vein S1 Flcpjpar83.2cm/sD2 Kmvbwukl57.8cm/s LEFT VENTRICLE The left ventricle is normal size. There is mild concentric left ventricular hypertrophy. The left ve ntricular systolic function is normal and the ejection fraction is within normal range. The Ejection Fraction is 55-60%. There is normal LV segmental wall motion. Transmitral Doppler flow pattern is Gra de I-abnormal relaxation pattern. RIGHT VENTRICLE The right ventricle is normal size. The right ventricular systolic function is normal. ATRIA The left atrium is mildly dilated. The right atrium size is normal. The interatrial septum is intact with no evidence for an atrial septal defect or patent foramen ovale as noted on 2-D or Doppler imagi ng. AORTIC VALVE The aortic valve is calcified but opens well. Doppler and Color Flow revealed no significant aortic r egurgitation. There is no significant aortic valvular stenosis. MITRAL VALVE The mitral valve is calcified but opens well. Mitral annular calcification is mild. There is no evide nce of mitral valve prolapse. There is no mitral valve stenosis. Doppler and Color Flow revealed no m itral valve regurgitation noted. TRICUSPID VALVE The tricuspid valve is normal in structure and function. Doppler and Color Flow revealed physiologica l tricuspid regurgitation. The PA pressure was estimated at 27 mmHg. There is no tricuspid valve sten osis. PULMONIC VALVE The pulmonic valve is not well visualized. Doppler and Color Flow revealed trace pulmonic valvular re gurgitation. There is no pulmonic valvular stenosis. GREAT VESSELS The aortic root is normal in size. The ascending aorta is mildly dilated at 3.4 cm. The IVC was not v isualized. PERICARDIAL EFFUSION There is no evidence of significant pericardial effusion. Critical Notification Critical Value: No <Conclusion> The left ventricular systolic function is normal and the ejection fraction is within normal range. Th e Ejection Fraction is 55-60%. There is normal LV segmental wall motion. The ascending aorta is mildly dilated at 3.4 cm. Signed by : Riky Keys, Electronically Approved : 02/05/2020 12:43:12
== END | disposition home or self-care (01) ==
LOC: ECHO 10:35
PROVIDERS: ATTEND Internal Medicine Cardiovascular Disease
DX: I08.3 Combined rheumatic disorders of mitral, aortic and tricuspid valves (principal); R01.1 Cardiac murmur, unspecified
CPT/HCPCS: 93306

== ENCOUNTER → 2020-03-01 | Outpatient (CLI) | payer MEDICARE, MEDICAID ==
[2019-09-22 07:53] VITALS: BP 118/32
--- NOTE | 2020-03-01 16:00 | RAD ---
EXAMINATION: VENOUS LOWER EXTREMITY RIGHT (LOWER EXTREMITY VENOUS ULTRASOUND) CLINICAL HISTORY: Right leg swelling concerning for DVT TECHNIQUE: Sonographic grayscale images obtained of the right lower extremity deep venous system with color flow Doppler, compression, and augmentation techniques as indicated. Images obtained and stored in a permanent archive. COMPARISON: None FINDINGS: No evidence of absent flow or incompressibility within common femoral vein, femoral vein, or popliteal vein. Visualized calf veins appear patent on limited evaluation. IMPRESSION: No evidence of right lower extremity DVT. Electronically signed by: Jose Alejandro Montes DO (03/01/2020 3:57 PM) [id number]
== END ==
LOC: US 14:22
PROVIDERS: ATTEND Family Medicine
DX: R22.41 Localized swelling, mass and lump, right lower limb (principal); M79.89 Other specified soft tissue disorders
CPT/HCPCS: 93971

== ENCOUNTER 2020-04-26 18:23 | Inpatient (IN) | payer MEDICARE, MEDICAID ==
[~2020-04-26] VITALS: Ht 160 cm; Wt 141.0 kg
[~2020-04-26 18:23] MED LIST changes: -MULT1TAB49 PO; +MULT1TAB50 PO
[2020-04-26] MEDS ORDERED: IV NORMAL SALINE 1000ML BAG 1,000 ML IV ONE (19:15)
[2020-04-26 19:23] LABS: BASO % 0 % (0-3); EOS % 0 % (0-3); HEMATOCRIT 34.7 % (36.0-47.0); HEMOGLOBIN 11.4 g/dL (12.0-15.5); LYMPH % 14 % (24-48); MEAN CORPUSCULAR HEMOGLOBIN 33 pg (25-35); MEAN CORPUSCULAR HGB CONC 33 g/dL (31-37); MEAN CORPUSCULAR VOLUME 100 fL (79-100); MONO # 0.4 x10^3/uL (0.0-1.1); MONO % 6 % (0-9); NEUT # 5.8 x10^3/uL (1.8-7.7); NEUT % 81 % (31-73); PLATELET COUNT 203 x10^3/uL (140-400); RED BLOOD COUNT 3.47 x10^6/uL (3.50-5.40); RED CELL DISTRIBUTION WIDTH 17.4 % (11.5-14.5); WHITE BLOOD COUNT 7.2 x10^3/uL (4.0-11.0)
[2020-04-26 19:34] LABS: CALCIUM 8.7 mg/dL (8.5-10.1); CREATININE 4.1 mg/dL (0.6-1.0); GFR 11.3; POTASSIUM 3.7 mmol/L (3.5-5.1)
[2020-04-26 19:40] LABS: ALBUMIN 2.6 g/dL (3.4-5.0); ALBUMIN/GLOBULIN RATIO 0.6 (1.0-1.7); TOTAL BILIRUBIN 0.2 mg/dL (0.2-1.0); TOTAL PROTEIN 6.9 g/dL (6.4-8.2)
--- NOTE | 2020-04-26 19:54 | PHYS DOC ---
Past Medical History Past Medical History: Diabetes-Type II, High Cholesterol, Hypertension, Renal Failure, Other Additional Past Medical Histor: Stage IV Kidney, sleep apnea,COVID-19 Past Surgical History: Tubal ligation Additional Past Surgical Histo: Knee surgery, PD CATHETER Smoking Status: Former Smoker Alcohol Use: None Drug Use: None General Adult EDM: Chief Complaint: MULTIPLE COMPLAINTS HPI: HPI: 55 yo F PMH PD (daily x1.5yrs, makes some urine), obesity, hypertension, and hyperlipidemia, presents to the ED with complaints of fatigue, generalized weakness, body aches, fever, sore throat, dry cough, mild shortness of breath and bilateral chest tightness, symptoms present for approximately 1 week. Reports her Covid test came back positive today. Reports her were symptoms of fatigue and weakness. Is able speak in full sentences-does not have any air hunger. Review of Systems: Review of Systems: Constitutional: Denies lost of taste or smell Eyes: Denies change in visual acuity. [] HENT: Denies nasal congestion or rhinorrhea Respiratory: Denies hemoptysis or labored speech Cardiovascular: Denies syncope or edema GI: Denies abdominal pain, nausea, vomiting, bloody stools or diarrhea. [] : Denies dysuria. [] Musculoskeletal: Denies back pain or joint pain or unilateral leg swelling Integument: Denies rash. [] Neurologic: Denies headache, focal weakness or sensory changes. [] Endocrine: Denies polyuria or polydipsia. [] Lymphatic: Denies swollen glands. [] Psychiatric: Denies depression or anxiety. [] Heart Score: Risk Factors: Risk Factors: DM, Current or recent (<one month) smoker, HTN, HLP, family history of CAD, obesity. Risk Scores: Score 0 - 3: 2.5% MACE over next 6 weeks - Discharge Home Score 4 - 6: 20.3% MACE over next 6 weeks - Admit for Clinical Observation Score 7 - 10: 72.7% MACE over next 6 weeks - Early Invasive Strategies Current Medications: Current Medications Medications (Trade) Dose Ordered Sig/Mya Start Time Stop Time Status Last Admin Dose Admin Sodium Chloride 1,000 ml @ 1,000 mls/hr 1X ONCE 04/26/20 19:15 04/26/20 20:14 04/26/20 19:17 1,000 MLS/HR Allergies: Allergies: Allergies Coded Allergies Type Severity Reaction Last Updated Verified morphine Adverse Reaction Severe Nausea and Vomiting 07/14/19 Yes Physical Exam: PE: Constitutional: calm/sleeping/in no acute distress, non-toxic appearance. HENT: Normocephalic, atraumatic, Eyes: EOMI, conjunctiva normal, no discharge, very dry, pharyngeal erythema Neck: Normal range of motion, supple, Cardiovascular: S1/2 present, regular rhythm Lungs & Thorax: Speaking in full sentences, bilateral equal chest rise, no tachypnea or increased work of breathing, 90% on room air per RN report, 96% on 2 L nasal cannula Abdomen: soft, no erythema or ttp, +fludi wave Skin: Warm, dry, no erythema, no rash. [] Back: No tenderness, no CVA tenderness. [] Extremities: No tenderness, no cyanosis, no unilateral LE edema Neurologic: Alert and oriented X 3, normal motor function, normal sensory function, no focal deficits noted. [] Psychologic: Affect normal, judgement normal, mood normal. [] Current Patient Data: Labs: Laboratory Tests Test 04/26/20 19:12 White Blood Count 7.2 x10^3/uL (4.0-11.0) Red Blood Count 3.47 x10^6/uL (3.50-5.40) L Hemoglobin 11.4 g/dL (12.0-15.5) L Hematocrit 34.7 % (36.0-47.0) L Mean Corpuscular Volume 100 fL (79-100) Mean Corpuscular Hemoglobin 33 pg (25-35) Mean Corpuscular Hemoglobin Concent 33 g/dL (31-37) Red Cell Distribution Width 17.4 % (11.5-14.5) H Platelet Count 203 x10^3/uL (140-400) Neutrophils (%) (Auto) 81 % (31-73) H Lymphocytes (%) (Auto) 14 % (24-48) L Monocytes (%) (Auto) 6 % (0-9) Eosinophils (%) (Auto) 0 % (0-3) Basophils (%) (Auto) 0 % (0-3) Neutrophils # (Auto) 5.8 x10^3/uL (1.8-7.7) Lymphocytes # (Auto) 1.0 x10^3/uL (1.0-4.8) Monocytes # (Auto) 0.4 x10^3/uL (0.0-1.1) Eosinophils # (Auto) 0.0 x10^3/uL (0.0-0.7) Basophils # (Auto) 0.0 x10^3/uL (0.0-0.2) D-Dimer (Diya) 1.02 ug/mlFEU (0.00-0.50) H Sodium Level 138 mmol/L (136-145) Potassium Level 3.7 mmol/L (3.5-5.1) Chloride Level 99 mmol/L (98-107) Carbon Dioxide Level 25 mmol/L (21-32) Anion Gap 14 (6-14) Blood Urea Nitrogen 72 mg/dL (7-20) H Creatinine 4.1 mg/dL (0.6-1.0) H Estimated GFR (Cockcroft-Gault) 11.3 BUN/Creatinine Ratio 18 (6-20) Glucose Level 74 mg/dL (70-99) Lactic Acid Level 0.9 mmol/L (0.4-2.0) Calcium Level 8.7 mg/dL (8.5-10.1) Total Bilirubin 0.2 mg/dL (0.2-1.0) Aspartate Amino Transferase (AST) 28 U/L (15-37) Alanine Aminotransferase (ALT) 25 U/L (14-59) Alkaline Phosphatase 92 U/L (46-116) Creatine Kinase 63 U/L (26-192) Troponin I Quantitative 0.023 ng/mL (0.000-0.055) MP-Pmd-L-Type Natriuretic Peptide 1368 pg/mL (0-124) H Total Protein 6.9 g/dL (6.4-8.2) Albumin 2.6 g/dL (3.4-5.0) L Albumin/Globulin Ratio 0.6 (1.0-1.7) L Laboratory Tests 04/26/20 19:12 Laboratory Tests 04/26/20 19:12 Vital Signs: Vital Signs Date Time Temp Pulse Resp B/P (MAP) Pulse Ox O2 Delivery O2 Flow Rate FiO2 04/26/20 18:23 99.5 84 20 94/53 (67) 95 Nasal Cannula 2.0 99.5 EKG: EKG: sinus rhythm at 85 bpm, LAD, normal intervals, no T wave inversions, no ST elevations or ST depressions Radiology/Procedures: Radiology/Procedures: IMAGING REPORT Signed PATIENT: HAVEN TITUS ACCOUNT: [id number] : 1965 LOCATION: ER AGE: 55 SEX: F EXAM STATUS: REG ER ORD. PHYSICIAN: NOEMI DESIR DO REASON: soa PROCEDURE: PORTABLE CHEST 1V EXAM: Chest, single view. HISTORY: Shortness of air. COMPARISON: 09/11/2019. FINDINGS: A frontal view of the chest obtained. There is bilateral lower lobe interstitial and alveolar infiltrate. There is cardiomegaly. There is no pleural effusion or pneumothorax. IMPRESSION: Bilateral lower lobe interstitial and alveolar infiltrate. Electronically signed by: Julianne Kapadia MD (04/26/2020 8:34 PM) [facility] DICTATED and SIGNED BY: JULIANNE KAPADIA MD DATE: 04/26/209536QNT3 0 IMAGING REPORT Signed PATIENT: HAVEN TITUS ACCOUNT: [id number] : 1965 LOCATION: ER AGE: 55 SEX: F EXAM STATUS: REG ER ORD. PHYSICIAN: NEOMI DESIR DO REASON: soa, r/o pe, OMNI 350, 100 ML IV PROCEDURE: CT ANGIOGRAPHY CHEST CTA CHEST INDICATION: Reason: soa, r/o pe, Covid + Comparison: None. TECHNIQUE: Following the uneventful administration of intravenous contrast, 100 cc Omnipaque 350, axial CT sections were obtained through the lungs and upper abdomen. Multiplanar reconstructions and MIP images were obtained. PQRS compliance statement: One or more of the following individualized dose reduction techniques were utilized for this examination: 1. Automated exposure control 2. Adjustment of the mA and/or kV according to patient size 3. Use of iterative reconstruction technique FINDINGS: Pulmonary arteries: No evidence of pulmonary thromboembolic disease. Dilated pulmonary trunk measures 36 mm. Lungs and Airways: Multifocal bilateral groundglass opacities and consolidations. Bilateral Bochdalek hernias. No abnormality of the central airways. Pleura: The pleural spaces are normal. Heart and Mediastinum: The visualized thyroid is normal in size and attenuation. No axillary or supraclavicular lymphadenopathy. Few conspicuous mediastinal lymph nodes. Cardiomegaly. No pericardial effusion. Coronary artery atherosclerotic disease. Atherosclerosis of the thoracic aorta. Abdomen: Limited images through the upper abdomen show no abnormality of the visualized organs. Bones and Soft Tissues: Degenerative changes of the spine. IMPRESSION: 1. No evidence of pulmonary thromboembolic disease. 2. Multifocal bilateral groundglass opacities and consolidations, consistent with patient's history of infection. 3. Dilated pulmonary trunk, which can be seen with pulmonary hypertension. Electronically signed by: Jailene Hernandez MD (04/26/2020 9:37 PM) [facility] DICTATED and SIGNED BY: JAILENE HERNANDEZ MD DATE: 04/26/[id number] 0 Course & Med Decision Making: Course & Med Decision Making Pertinent Labs and Imaging studies reviewed. (See chart for details) COVID-19 CRITERIA: The patient was evaluated during the global COVID-19 pandemic, and that diagnosis was suspected/considered upon their initial presentation. Their evaluation, treatment and testing was consistent with current guidelines for patients who present with complaints or symptoms that may be related to COVID-19. Concern for covid/CAP requiring 1-2 L NC. CTA with no pe. Antibiotics initiated. Does not meet SIRS criteria. Patient stable at time of admission and agrees with this plan. I have spoken with the patient and/or caregivers. I have explained the patient's condition, diagnosis and treatment plan based on the information available to me at this time. I have answered the patient's and/or caregivers questions and answered any concerns. The patient and/or caregivers have as good an understanding of the patient's diagnosis, condition and treatment plan as can be expected at this point. The patient has been stabilized within the capability of the emergency department. The patient will be transported for fur ther care and management or will be moved to an observation or inpatient service. I have communicated with the staff or medical practitioner taking over this patient's care. Cecy Disclaimer: Cecy Disclaimer: This electronic medical record was generated, in whole or in part, using a voice recognition dictation system. Departure Departure Impression: Primary Impression: COVID-19 Additional Impression: CAP (community acquired pneumonia) Disposition: ADMITTED INPT THIS HOSP Admitting Physician: Qamar Andersen Condition: STABLE Referrals: TRUSTY,ADELIA B MD (PCP) NOEMI DESIR DO Apr 26, 2020 19:54
--- NOTE | 2020-04-26 20:36 | RAD ---
EXAM: Chest, single view. HISTORY: Shortness of air. COMPARISON: 09/11/2019. FINDINGS: A frontal view of the chest obtained. There is bilateral lower lobe interstitial and alveol ar infiltrate. There is cardiomegaly. There is no pleural effusion or pneumothorax. IMPRESSION: Bilateral lower lobe interstitial and alveolar infiltrate. Electronically signed by: Julianne Heller MD (04/26/2020 8:34 PM) [facility]
[2020-04-26 20:45] LABS: INFLUENZA A PATIENT NEGATIVE (NEGATIVE); INFLUENZA B PATIENT NEGATIVE (NEGATIVE)
[2020-04-26] MEDS ORDERED: CONTRAST GIVEN. MC PRN (20:45)
[2020-04-26] MEDS ORDERED: IOHEXOL 350 MG/ML 100 ML VIAL. IV ONE (20:45)
--- NOTE | 2020-04-26 21:39 | RAD ---
CTA CHEST INDICATION: Reason: soa, r/o pe, Covid + Comparison: None. TECHNIQUE: Following the uneventful administration of intravenous contrast, 100 cc Omnipaque 350, axi al CT sections were obtained through the lungs and upper abdomen. Multiplanar reconstructions and MIP images were obtained. RS compliance statement: One or more of the following individualized dose reduction techniques were utilized for this examinat ion: 1. Automated exposure control 2. Adjustment of the mA and/or kV according to patient size 3. Use of iterative reconstruction technique FINDINGS: Pulmonary arteries: No evidence of pulmonary thromboembolic disease. Dilated pulmonary trunk measures 36 mm. Lungs and Airways: Multifocal bilateral groundglass opacities and consolidations. Bilateral Bochdalek hernias. No abnormality of the central airways. Pleura: The pleural spaces are normal. Heart and Mediastinum: The visualized thyroid is normal in size and attenuation. No axillary or supra clavicular lymphadenopathy. Few conspicuous mediastinal lymph nodes. Cardiomegaly. No pericardial eff usion. Coronary artery atherosclerotic disease. Atherosclerosis of the thoracic aorta. Abdomen: Limited images through the upper abdomen show no abnormality of the visualized organs. Bones and Soft Tissues: Degenerative changes of the spine. IMPRESSION: 1. No evidence of pulmonary thromboembolic disease. 2. Multifocal bilateral groundglass opacities and consolidations, consistent with patient's history o f infection. 3. Dilated pulmonary trunk, which can be seen with pulmonary hypertension. Electronically signed by: Peter Hernandez MD (04/26/2020 9:37 PM) [facility]
[2020-04-26] MEDS ORDERED: ONDANSETRON PF 4 MG/2 ML VIAL. IV PRN (22:45)
[2020-04-26] MEDS ORDERED: AZITHRMYCN 500MG IVPB FOR OMNI 250 ML IV ONE (23:00)
[2020-04-26] MEDS ORDERED: cefTRIAXone IV Push 1 GM VIAL. IVP ONE (23:00)
[2020-04-27] MEDS: ACETAMINOPHEN 325 MG TABLET. PO PRN ×4 (02:44→23:23)
[2020-04-27 03:00] VITALS: BP 146/68
--- NOTE | 2020-04-27 03:19 | NUR ---
The patient, HAVEN TITUS, 55 y/o, F admitted by VERNA GARCIA MD, was given written information regarding hospital policies, unit procedures and contact persons. Valuables were checked and has cell phone, cell phone fleet mechanic, and pull ups.
[2020-04-27] MEDS ORDERED: GABA600T7 PO (03:49)
[2020-04-27] MEDS ORDERED: GABA300C18 PO (03:49)
[2020-04-27] MEDS ORDERED: GABAPENTIN 300 MG CAPSULE. PO STA (03:51)
[2020-04-27] MEDS ORDERED: DEXTROSE 50% 25 GM / 50ML DISP.SYRIN. IV PRN (04:00)
[2020-04-27] MEDS: GABAPENTIN 300 MG CAPSULE. PO SCH ×2 (04:13→20:31)
[2020-04-27] MEDS ORDERED: GABAPENTIN 300 MG CAPSULE. PO SCH (04:30)
[2020-04-27 07:00] VITALS: BP 135/65
[2020-04-27] MEDS: INSULIN LISPRO 300 UNITS/3 ML VIAL. SQ SCH ×3 (08:00→17:00)
[2020-04-27] MEDS: INSULIN GLARGINE SYRINGE. SQ SCH ×2 (09:00→21:12)
[2020-04-27] MEDS: LINAGLIPTIN 5 MG TABLET PO SCH (09:58)
[2020-04-27] MEDS: MULTIVITAMIN with MINERAL TABLET. PO SCH (09:59)
[2020-04-27] MEDS: DULoxetine HCL 30 MG CAPSULE.DR PO SCH ×2 (09:59→20:31)
[2020-04-27] MEDS: TORSEMIDE 20 MG TABLET. PO SCH ×2 (09:59→16:44)
[2020-04-27 11:00] VITALS: BP 128/63
--- NOTE | 2020-04-27 12:46 | HP ---
ADMIT DATE: 04/26/2020 CHIEF COMPLAINT AND HISTORY OF PRESENT ILLNESS: This 55-year-old white female, patient of Dr. Qamar Andersen, presented to the Emergency Room with a week of symptoms. COVID testing and come back positive, on the day of admission. She has quite a bit of a cough, headache, fevers, chills, sweats, generalized weakness, extreme fatigue, myalgias, sore throat, mild shortness of breath. She was found to need O2 and admitted. PAST MEDICAL HISTORY: Remarkable for type 2 diabetes, hyperlipidemia, hypertension, chronic kidney disease stage 4, obstructive sleep apnea. PAST SURGICAL HISTORY: Remarkable for tubal ligation, knee surgery, and a peritoneal dialysis catheter. SOCIAL HISTORY: She is a former smoker, nondrinker, does not use alcohol. FAMILY HISTORY: Noncontributory. MEDICATIONS: Brought with the patient, listed on the computer and have been addressed. ALLERGIES: SHE IS ALLERGIC TO MORPHINE. PHYSICAL EXAMINATION: GENERAL: She is an obese white female who appears ill. VITAL SIGNS: Stable. She is requiring 2 liters per nasal cannula oxygen. T-max since admission has been 102. HEAD, EYES, EARS, NOSE AND THROAT: Unremarkable. NECK: Supple, without adenopathy or thyromegaly. CHEST: Reveals distant breath sounds, but clear. HEART: Regular rate and rhythm without S3, S4 or murmur. ABDOMEN: Soft, nontender, without hepatosplenomegaly or masses. EXTREMITIES: Without cyanosis, clubbing, or significant edema. NEUROLOGIC: She is intact. IMPRESSION: 1. COVID-19 infection with acute hypoxic respiratory failure and bilateral pulmonary infiltrates consistent with the same. 2. Diabetes. 3. Near end-stage renal disease with a BUN of 71, creatinine 4.1 on admission. 4. Obstructive sleep apnea, hypertension. PLAN: Supportive care. We will ask Pulmonary for help. She will also ask Renal to come by with her given her kidney function. JAILENE HINTON MD DR: KHADAR/batool JOB#: [id number] / [id number]
--- NOTE | 2020-04-27 13:08 | EKG ---
[facility] [address] [place] [address] Test Date: 2020-04-26 Test Time: 18:51:23 Pat Name: HAVEN TITUS Department: Room: Gender: F Secretary: : 1965 Requested By: NOEMI DESIR Order Number: [id number] Reading MD: Measurements Intervals [place] Rate: 85 P: 50 HI: 152 QRS: -10 QRSD: 90 T: 41 QT: 364 QTc: 433 Interpretive Statements SINUS RHYTHM LEFTWARD AXIS OTHERWISE NORMAL ECG RI6.02 No previous ECG available for comparison
[2020-04-27 15:00] VITALS: BP 144/66
[2020-04-27 19:40] VITALS: BP 142/66
[2020-04-27] MEDS: ATORVASTATIN CALCIUM 40 MG TABLET. PO SCH (20:31)
[2020-04-27] MEDS: MONTELUKAST SODIUM 10 MG TABLET. PO SCH (20:32)
[2020-04-27] MEDS ORDERED: NON FORMULARY ITEM (Gabapentin 600 MG) PO SCH (21:00)
[2020-04-27] MEDS ORDERED: ACETAMINOPHEN 650 MG/20.3 ML SOLUTION. PEG PRN (23:00)
[2020-04-27 23:21] VITALS: BP 139/67
[2020-04-28 03:30] VITALS: BP 153/71
[2020-04-28] MEDS: ACETAMINOPHEN 325 MG TABLET. PO PRN ×4 (03:37→20:22)
[2020-04-28 07:00] VITALS: BP 145/66
[2020-04-28] MEDS: MULTIVITAMIN with MINERAL TABLET. PO SCH ×2 (08:47→12:34)
[2020-04-28] MEDS: LINAGLIPTIN 5 MG TABLET PO SCH (08:47)
[2020-04-28] MEDS: DULoxetine HCL 30 MG CAPSULE.DR PO SCH ×2 (08:47→20:23)
[2020-04-28] MEDS: TORSEMIDE 20 MG TABLET. PO SCH ×2 (08:52→12:49)
[2020-04-28] MEDS: INSULIN LISPRO 300 UNITS/3 ML VIAL. SQ SCH ×3 (08:54→17:00)
[2020-04-28] MEDS: INSULIN GLARGINE SYRINGE. SQ SCH ×2 (09:16→21:10)
[2020-04-28 10:56] VITALS: BP 109/55
--- NOTE | 2020-04-28 12:15 | PDOC ---
PULMONARY PROGRESS NOTES DATE: 04/28/20 TIME: 12:14 Vitals Vital Signs Date Time Temp Pulse Resp B/P (MAP) Pulse Ox O2 Delivery O2 Flow Rate FiO2 04/28/20 10:56 100.1 92 23 109/55 (73) 91 Nasal Cannula 3.0 100.1 Labs Laboratory Tests Test 04/26/20 19:12 04/26/20 20:01 04/27/20 09:15 04/27/20 11:24 White Blood Count 7.2 x10^3/uL (4.0-11.0) Red Blood Count 3.47 x10^6/uL (3.50-5.40) Hemoglobin 11.4 g/dL (12.0-15.5) Hematocrit 34.7 % (36.0-47.0) Mean Corpuscular Volume 100 fL (79-100) Mean Corpuscular Hemoglobin 33 pg (25-35) Mean Corpuscular Hemoglobin Concent 33 g/dL (31-37) Red Cell Distribution Width 17.4 % (11.5-14.5) Platelet Count 203 x10^3/uL (140-400) Neutrophils (%) (Auto) 81 % (31-73) Lymphocytes (%) (Auto) 14 % (24-48) Monocytes (%) (Auto) 6 % (0-9) Eosinophils (%) (Auto) 0 % (0-3) Basophils (%) (Auto) 0 % (0-3) Neutrophils # (Auto) 5.8 x10^3/uL (1.8-7.7) Lymphocytes # (Auto) 1.0 x10^3/uL (1.0-4.8) Monocytes # (Auto) 0.4 x10^3/uL (0.0-1.1) Eosinophils # (Auto) 0.0 x10^3/uL (0.0-0.7) Basophils # (Auto) 0.0 x10^3/uL (0.0-0.2) D-Dimer (Diya) 1.02 ug/mlFEU (0.00-0.50) Sodium Level 138 mmol/L (136-145) Potassium Level 3.7 mmol/L (3.5-5.1) Chloride Level 99 mmol/L (98-107) Carbon Dioxide Level 25 mmol/L (21-32) Anion Gap 14 (6-14) Blood Urea Nitrogen 72 mg/dL (7-20) Creatinine 4.1 mg/dL (0.6-1.0) Estimated GFR (Cockcroft-Gault) 11.3 BUN/Creatinine Ratio 18 (6-20) Glucose Level 74 mg/dL (70-99) Lactic Acid Level 0.9 mmol/L (0.4-2.0) Calcium Level 8.7 mg/dL (8.5-10.1) Total Bilirubin 0.2 mg/dL (0.2-1.0) Aspartate Amino Transf (AST/SGOT) 28 U/L (15-37) Alanine Aminotransferase (ALT/SGPT) 25 U/L (14-59) Alkaline Phosphatase 92 U/L (46-116) Creatine Kinase 63 U/L (26-192) Troponin I Quantitative 0.023 ng/mL (0.000-0.055) XU-Pxh-A-Type Natriuretic Peptide 1368 pg/mL (0-124) Total Protein 6.9 g/dL (6.4-8.2) Albumin 2.6 g/dL (3.4-5.0) Albumin/Globulin Ratio 0.6 (1.0-1.7) Influenza Type A Antigen Negative (NEGATIVE) Influenza Type B Antigen Negative (NEGATIVE) Glucose (Fingerstick) 90 mg/dL (70-99) 97 mg/dL (70-99) Test 04/27/20 16:53 04/27/20 20:47 04/28/20 07:47 04/28/20 11:11 Glucose (Fingerstick) 119 mg/dL (70-99) 159 mg/dL (70-99) 278 mg/dL (70-99) 207 mg/dL (70-99) Laboratory Tests Test 04/27/20 16:53 04/27/20 20:47 04/28/20 07:47 04/28/20 11:11 Glucose (Fingerstick) 119 mg/dL (70-99) 159 mg/dL (70-99) 278 mg/dL (70-99) 207 mg/dL (70-99) Medications Active Scripts Medications Dose Route/Sig Max Daily Dose Days Date Category Dose Instructions Gabapentin 600 Mg Tablet 600 Mg PO HS 04/27/20 Reported Gabapentin (Gabapentin) 300 Mg Capsule 300 Mg PO DAILY 04/27/20 Reported Lantus Solostar (Insulin Glargine,Hum.rec.anlog) 100 Unit/1 Ml Insuln.pen 75 Unit SQ BID 09/19/19 Reported Januvia (Sitagliptin Phosphate) 25 Mg Tablet 25 Mg PO DAILY 09/19/19 Reported Novolog (Insulin Aspart) 100 Unit/1 Ml Cartridge 0 SQ TIDAC 01/26/19 Reported Sliding scale; patient has printout (at home) of scale. Unknown at this time. Singulair Tablet (Montelukast Sodium) 10 Mg Tablet 10 Mg PO HS 11/24/18 Reported Atorvastatin Calcium 40 Mg Tablet 1 Tab PO QHS 11/24/18 Reported Torsemide 20 Mg Tablet 2 Tab PO BID 11/24/18 Reported Cymbalta (Duloxetine Hcl) 30 Mg Capsule.dr 1 Cap PO BID 11/24/18 Reported Daily Jalen (Multivitamin) 1 Each Tablet 1 Each PO DAILY 11/24/18 Reported Impression . Full note dictated Respiratory failure secondary to COVID-19 viral pneumonia See orders Discussed with pharmacy initiate ESSENCE Hernandez MD Apr 28, 2020 12:15
[2020-04-28] MEDS: ONDANSETRON ODT 4 MG TAB.RAPDIS. PO PRN (12:34)
[2020-04-28] MEDS: CHOLECALCIFEROL (VITAMIN D3) 1,000 UNIT TABLET PO SCH (12:35)
[2020-04-28] MEDS: ZINC SULFATE 220 MG CAPSULE. PO SCH (12:35)
[2020-04-28] MEDS: ASCORBIC ACID 1,000 MG TABLET PO SCH (12:35)
[2020-04-28] MEDS: HEPARIN for SUB-Q USE 5,000 UNIT/ML VIAL. SQ SCH ×2 (12:38→20:24)
--- NOTE | 2020-04-28 12:48 | PN ---
DATE: 04/28/2020 LOCATION: She is in room 256. SUBJECTIVE: This 55-year-old white female remains hospitalized due to COVID-19 pneumonia with acute respiratory failure. She complains of just general malaise. No energy. Short of breath with trying to do anything in bed even. OBJECTIVE: VITAL SIGNS: Stable. T-max is 102 in the last 24 hours. O2 had been increased overnight up to 5 liters. Generally, she appears ill and weak. CHEST: With distant, but clear breath sounds. HEART: Regular. ABDOMEN: Benign. IMPRESSION: Sugars are variable with anywhere from 97-78 in the last 24 hours. IMPRESSION: 1. COVID-19 pneumonia with acute respiratory failure and worsening oxygenation. 2. Diabetes. 3. Peritoneal dialysis with end-stage renal disease. 4. Obstructive sleep apnea. PLAN: I am going to ask ID to see in addition regarding whether we need to place her on remdesivir, and I am unsure of the utility of this with the renal failure. She is likely going to need steroids and will have to [place] her sugars around in addition as she does seem to be worsening on a daily basis as far as being stable or improving. JAILENE HINTON MD DR: KHADAR/batool JOB#: [id number] / [id number]
[2020-04-28] MEDS: DOXYCYCLINE HYCLATE 100 MG TABLET PO SCH ×2 (12:49→20:23)
[2020-04-28] MEDS: cefTRIAXone IV Push 1 GM VIAL. IVP SCH (12:50)
[2020-04-28] MEDS ORDERED: DEXAMETHASONE 4 MG TABLET PO ONE (13:00)
[2020-04-28] MEDS ORDERED: ENOXAPARIN 30 MG/0.3 ML SYRINGE. SQ SCH (13:00)
--- NOTE | 2020-04-28 13:31 | CONS ---
DATE OF CONSULTATION: 04/28/2020 ATTENDING PHYSICIAN: Qamar Andersen MD CONSULTING PHYSICIAN: Essence Hernandez MD HISTORY OF PRESENT ILLNESS: The patient is a 55-year-old that is at home on a PD catheter for dialysis. She has had symptoms now of COVID, fever, chills, night sweats. No loss of taste or smell. She apparently was exposed to her mother. The patient was tested on Wednesday reported positive on Wednesday. She now comes in with increasing symptoms. She is currently requiring oxygen. I was asked to see her in consultation. Normally does not wear oxygen. She is a former smoker and uses CPAP at home for obstructive sleep apnea. PAST MEDICAL HISTORY: Type 2 diabetes, hyperlipidemia, hypertension, renal failure, stage 4 kidney, on peritoneal dialysis; sleep apnea, utilizing CPAP. Recent COVID-19 tested positive on 04/25. REVIEW OF SYSTEMS: CONSTITUTIONAL: As indicated above. EYES: No change in visual acuity. HENT: As indicated above. RESPIRATORY: As indicated above. CARDIOVASCULAR: No chest pain. No pressure. GASTROINTESTINAL: No nausea, vomiting, diarrhea. GENITOURINARY: No dysuria or frequency. MUSCULOSKELETAL: No localized muscle aches or joint pains. SKIN: No new skin rashes. NEUROLOGIC: No headaches, diplopia or blurred vision. SOCIAL HISTORY: She is a former smoker. FAMILY HISTORY: Mother recently tested positive for COVID. PHYSICAL EXAMINATION: GENERAL: The patient was seen during the COVID-19 pandemic. On visual inspection, she was able to complete full sentences. No paroxysmal breathing pattern. Obese individual. Mild edema. No skin rashes. LABORATORY DATA: Reviewed. White count was normal. She had a lymphopenia. Hemoglobin and hematocrit were noted. INR was 1.0. Electrolytes were noted. BUN and creatinine were elevated. Chest x-ray revealed bilateral infiltrates. CT angiogram revealed no evidence of PE. There was multifocal bilateral ground glass opacities. IMPRESSION: 1. Acute hypoxemic respiratory failure secondary to COVID-19 viral pneumonia. 2. COVID-[address] angiogram, no evidence of pulmonary embolism. 4. Chronic kidney disease, on peritoneal dialysis. 5. Morbid obesity. 6. Obstructive sleep apnea. 7. Hyperlipidemia. 8. Hypertension. PLAN: 1. We will continue oxygen supplementation. 2. Steroids. 3. Empiric antibiotics for bacterial pneumonia. 4. Initiate remdesivir. 5. Continue peritoneal dialysis. 6. Monitor blood sugars. 7. DVT prophylaxis. I do appreciate the privilege in sharing patient's care. ESSENCE HERNANDEZ MD DR: KE/batool JOB#: [id number] / [id number]
[2020-04-28] MEDS ORDERED: REMDESIVIR LOAD in IV NORMAL SALINE 250ML TV IV ONE (14:00)
--- NOTE | 2020-04-28 14:09 | CONS ---
DATE OF CONSULTATION: REQUESTING PHYSICIAN: Peter Martin MD REASON FOR CONSULTATION: Renal failure, peritoneal dialysis dependent. HISTORY OF PRESENT ILLNESS: This is a 55-year-old female with history of diabetes mellitus, hypertension, end-stage renal disease. She undergoes hemodialysis via peritoneal dialysis on a home basis. She is currently admitted with COVID-19 positive status. Illness has been heralded by fever, chills, headache, dry cough, generalized weakness and fatigue as well as sore throat, and shortness of breath. PAST MEDICAL HISTORY: Diabetes mellitus, hypertension, hyperlipidemia, end-stage renal disease, peritoneal dialysis dependent, obstructive sleep apnea, tubal ligation, knee surgery, peritoneal dialysis catheter placement. ALLERGIES: MORPHINE. MEDICATIONS: Reviewed per medication list. FAMILY HISTORY: Noncontributory. SOCIAL HISTORY: Former smoker, nondrinker. REVIEW OF SYSTEMS: Not obtained from the patient due to COVID-19 positive status. PHYSICAL EXAMINATION: The patient is COVID-19 positive. As such bedside examination not pursued. LABORATORY DATA: Hemoglobin 11.4, hematocrit 34.7, white count 7.2. Sodium 138, potassium 3.7, chloride 109, CO2 of 25, BUN 72, creatinine 4.1, GFR is 11.3. IMPRESSION: 1. End-stage renal disease secondary to diabetic nephropathy -- peritoneal dialysis dependent. 2. Chronic kidney disease. 3. COVID-19 positive status. RECOMMENDATIONS: 1. Ongoing peritoneal dialysis. 2. Acute management of COVID-19. We will follow. RADHA BILL MD DR: DEVYN/batool JOB#: [id number] / [id number]
[2020-04-28 15:00] VITALS: BP 140/63
[2020-04-28 19:40] VITALS: BP 159/71
[2020-04-28] MEDS: ATORVASTATIN CALCIUM 40 MG TABLET. PO SCH (20:22)
[2020-04-28] MEDS: GABAPENTIN 300 MG CAPSULE. PO SCH (20:22)
[2020-04-28] MEDS: MONTELUKAST SODIUM 10 MG TABLET. PO SCH (20:22)
[2020-04-28] MEDS ORDERED: TEMAZEPAM 15 MG CAPSULE PO PRN (21:00)
[2020-04-28] MEDS: CYCLOBENZAPRINE 10 MG TABLET. PO PRN (21:10)
[2020-04-28 22:45] VITALS: BP 172/73
[2020-04-29 03:23] VITALS: BP 176/84
[2020-04-29] MEDS: HEPARIN for SUB-Q USE 5,000 UNIT/ML VIAL. SQ SCH ×3 (06:25→20:52)
[2020-04-29 07:00] VITALS: BP 142/75
[2020-04-29 07:33] LABS: ALBUMIN 2.4 g/dL (3.4-5.0); ALBUMIN/GLOBULIN RATIO 0.5 (1.0-1.7); ALK PHOS 84 U/L (46-116); ALT (SGPT) 26 U/L (14-59); ANION GAP 16 (6-14); AST (SGOT) 49 U/L (15-37); BLOOD UREA NITROGEN 78 mg/dL (7-20); BUN/CREATININE RATIO 16 (6-20); CALCIUM 8.8 mg/dL (8.5-10.1); CARBON DIOXIDE 24 mmol/L (21-32); CHLORIDE 94 mmol/L (98-107); CREATININE 4.8 mg/dL (0.6-1.0); GFR 9.4; GLUCOSE 382 mg/dL (70-99); POTASSIUM 3.3 mmol/L (3.5-5.1); SODIUM 134 mmol/L (136-145); TOTAL BILIRUBIN 0.3 mg/dL (0.2-1.0); TOTAL PROTEIN 7.4 g/dL (6.4-8.2)
[2020-04-29 07:50] LABS: BASO % 1 % (0-3); EOS % 0 % (0-3); HEMATOCRIT 37.3 % (36.0-47.0); HEMOGLOBIN 12.3 g/dL (12.0-15.5); LYMPH # 0.6 x10^3/uL (1.0-4.8); LYMPH % 12 % (24-48); MEAN CORPUSCULAR HEMOGLOBIN 33 pg (25-35); MEAN CORPUSCULAR HGB CONC 33 g/dL (31-37); MEAN CORPUSCULAR VOLUME 99 fL (79-100); MONO # 0.3 x10^3/uL (0.0-1.1); MONO % 5 % (0-9); NEUT # 4.2 x10^3/uL (1.8-7.7); NEUT % 82 % (31-73); PLATELET COUNT 205 x10^3/uL (140-400); RED BLOOD COUNT 3.75 x10^6/uL (3.50-5.40); RED CELL DISTRIBUTION WIDTH 17.7 % (11.5-14.5); WHITE BLOOD COUNT 5.1 x10^3/uL (4.0-11.0)
[2020-04-29 08:03] LABS: DIRECT BILIRUBIN < 0.1 mg/dL (0.0-0.2); PHOSPHORUS 8.5 mg/dL (2.6-4.7)
[2020-04-29] MEDS: ASCORBIC ACID 1,000 MG TABLET PO SCH (08:29)
[2020-04-29] MEDS: CHOLECALCIFEROL (VITAMIN D3) 1,000 UNIT TABLET PO SCH (08:29)
--- NOTE | 2020-04-29 08:29 | PDOC ---
PULMONARY PROGRESS NOTES DATE: 04/29/20 TIME: 08:29 Subjective PT. is resting on BIPAP 605, wore BIPAP all night nursing reports pt. is not able to tolerate being off BIPAP No other concerns Vitals Vital Signs Date Time Temp Pulse Resp B/P (MAP) Pulse Ox O2 Delivery O2 Flow Rate FiO2 04/29/20 07:00 98.0 92 18 142/75 (97) 92 BiPAP/CPAP 98.0 04/28/20 22:45 6.0 Comments Patient is seen during pandemic, visual exam performed on BiPAP No accessory muscle use no distress No obvious rash or edema General: Alert Lungs: Crackles Labs Laboratory Tests Test 04/27/20 09:15 04/27/20 11:24 04/27/20 16:53 04/27/20 20:47 Glucose (Fingerstick) 90 mg/dL (70-99) 97 mg/dL (70-99) 119 mg/dL (70-99) 159 mg/dL (70-99) Test 04/28/20 07:47 04/28/20 11:11 04/28/20 16:51 04/28/20 17:08 Glucose (Fingerstick) 278 mg/dL (70-99) 207 mg/dL (70-99) 51 mg/dL (70-99) 130 mg/dL (70-99) Test 04/28/20 20:34 04/29/20 06:21 04/29/20 07:15 Glucose (Fingerstick) 369 mg/dL (70-99) 348 mg/dL (70-99) White Blood Count 5.1 x10^3/uL (4.0-11.0) Red Blood Count 3.75 x10^6/uL (3.50-5.40) Hemoglobin 12.3 g/dL (12.0-15.5) Hematocrit 37.3 % (36.0-47.0) Mean Corpuscular Volume 99 fL (79-100) Mean Corpuscular Hemoglobin 33 pg (25-35) Mean Corpuscular Hemoglobin Concent 33 g/dL (31-37) Red Cell Distribution Width 17.7 % (11.5-14.5) Platelet Count 205 x10^3/uL (140-400) Neutrophils (%) (Auto) 82 % (31-73) Lymphocytes (%) (Auto) 12 % (24-48) Monocytes (%) (Auto) 5 % (0-9) Eosinophils (%) (Auto) 0 % (0-3) Basophils (%) (Auto) 1 % (0-3) Neutrophils # (Auto) 4.2 x10^3/uL (1.8-7.7) Lymphocytes # (Auto) 0.6 x10^3/uL (1.0-4.8) Monocytes # (Auto) 0.3 x10^3/uL (0.0-1.1) Eosinophils # (Auto) 0.0 x10^3/uL (0.0-0.7) Basophils # (Auto) 0.0 x10^3/uL (0.0-0.2) Sodium Level 134 mmol/L (136-145) Potassium Level 3.3 mmol/L (3.5-5.1) Chloride Level 94 mmol/L (98-107) Carbon Dioxide Level 24 mmol/L (21-32) Anion Gap 16 (6-14) Blood Urea Nitrogen 78 mg/dL (7-20) Creatinine 4.8 mg/dL (0.6-1.0) Estimated GFR (Cockcroft-Gault) 9.4 BUN/Creatinine Ratio 16 (6-20) Glucose Level 382 mg/dL (70-99) Calcium Level 8.8 mg/dL (8.5-10.1) Phosphorus Level 8.5 mg/dL (2.6-4.7) Total Bilirubin 0.3 mg/dL (0.2-1.0) Direct Bilirubin < 0.1 mg/dL (0.0-0.2) Aspartate Amino Transf (AST/SGOT) 49 U/L (15-37) Alanine Aminotransferase (ALT/SGPT) 26 U/L (14-59) Alkaline Phosphatase 84 U/L (46-116) Total Protein 7.4 g/dL (6.4-8.2) Albumin 2.4 g/dL (3.4-5.0) Albumin/Globulin Ratio 0.5 (1.0-1.7) Laboratory Tests Test 04/28/20 11:11 04/28/20 16:51 04/28/20 17:08 04/28/20 20:34 Glucose (Fingerstick) 207 mg/dL (70-99) 51 mg/dL (70-99) 130 mg/dL (70-99) 369 mg/dL (70-99) Test 04/29/20 06:21 04/29/20 07:15 White Blood Count 5.1 x10^3/uL (4.0-11.0) Red Blood Count 3.75 x10^6/uL (3.50-5.40) Hemoglobin 12.3 g/dL (12.0-15.5) Hematocrit 37.3 % (36.0-47.0) Mean Corpuscular Volume 99 fL (79-100) Mean Corpuscular Hemoglobin 33 pg (25-35) Mean Corpuscular Hemoglobin Concent 33 g/dL (31-37) Red Cell Distribution Width 17.7 % (11.5-14.5) Platelet Count 205 x10^3/uL (140-400) Neutrophils (%) (Auto) 82 % (31-73) Lymphocytes (%) (Auto) 12 % (24-48) Monocytes (%) (Auto) 5 % (0-9) Eosinophils (%) (Auto) 0 % (0-3) Basophils (%) (Auto) 1 % (0-3) Neutrophils # (Auto) 4.2 x10^3/uL (1.8-7.7) Lymphocytes # (Auto) 0.6 x10^3/uL (1.0-4.8) Monocytes # (Auto) 0.3 x10^3/uL (0.0-1.1) Eosinophils # (Auto) 0.0 x10^3/uL (0.0-0.7) Basophils # (Auto) 0.0 x10^3/uL (0.0-0.2) Sodium Level 134 mmol/L (136-145) Potassium Level 3.3 mmol/L (3.5-5.1) Chloride Level 94 mmol/L (98-107) Carbon Dioxide Level 24 mmol/L (21-32) Anion Gap 16 (6-14) Blood Urea Nitrogen 78 mg/dL (7-20) Creatinine 4.8 mg/dL (0.6-1.0) Estimated GFR (Cockcroft-Gault) 9.4 BUN/Creatinine Ratio 16 (6-20) Glucose Level 382 mg/dL (70-99) Calcium Level 8.8 mg/dL (8.5-10.1) Phosphorus Level 8.5 mg/dL (2.6-4.7) Total Bilirubin 0.3 mg/dL (0.2-1.0) Direct Bilirubin < 0.1 mg/dL (0.0-0.2) Aspartate Amino Transf (AST/SGOT) 49 U/L (15-37) Alanine Aminotransferase (ALT/SGPT) 26 U/L (14-59) Alkaline Phosphatase 84 U/L (46-116) Total Protein 7.4 g/dL (6.4-8.2) Albumin 2.4 g/dL (3.4-5.0) Albumin/Globulin Ratio 0.5 (1.0-1.7) Glucose (Fingerstick) 348 mg/dL (70-99) Medications Active Scripts Medications Dose Route/Sig Max Daily Dose Days Date Category Dose Instructions Gabapentin 600 Mg Tablet 600 Mg PO HS 04/27/20 Reported Gabapentin (Gabapentin) 300 Mg Capsule 300 Mg PO DAILY 04/27/20 Reported Lantus Solostar (Insulin Glargine,Hum.rec.anlog) 100 Unit/1 Ml Insuln.pen 75 Unit SQ BID 09/19/19 Reported Januvia (Sitagliptin Phosphate) 25 Mg Tablet 25 Mg PO DAILY 09/19/19 Reported Novolog (Insulin Aspart) 100 Unit/1 Ml Cartridge 0 SQ TIDAC 01/26/19 Reported Sliding scale; patient has printout (at home) of scale. Unknown at this time. Singulair Tablet (Montelukast Sodium) 10 Mg Tablet 10 Mg PO HS 11/24/18 Reported Atorvastatin Calcium 40 Mg Tablet 1 Tab PO QHS 11/24/18 Reported Torsemide 20 Mg Tablet 2 Tab PO BID 11/24/18 Reported Cymbalta (Duloxetine Hcl) 30 Mg Capsule.dr 1 Cap PO BID 11/24/18 Reported Daily Jalen (Multivitamin) 1 Each Tablet 1 Each PO DAILY 11/24/18 Reported Comments CTA chest IMPRESSION: 1. No evidence of pulmonary thromboembolic disease. 2. Multifocal bilateral groundglass opacities and consolidations, consistent with patient's history of infection. 3. Dilated pulmonary trunk, which can be seen with pulmonary hypertension. Impression . IMPRESSION: 1. Acute hypoxemic respiratory failure secondary to COVID-19 viral pneumonia. 2. COVID-[address] angiogram, no evidence of pulmonary embolism. 4. Chronic kidney disease, on peritoneal dialysis. 5. Morbid obesity. 6. Obstructive sleep apnea. 7. Hyperlipidemia. 8. Hypertension. Plan . PLAN: Continue supplemental oxygen to keep oxygen saturations greater than 92%, currently on BiPAP 30/04 with a rate of 18 at 60% FiO2 Follow chest x-ray/ABG as needed Continue steroids with slow taper Continue empiric antibiotics, currently on Rocephin and doxy Continue full course of remdesivir Follow nephrology recommendations in regards to peritoneal dialysis DVT/GI prophylaxis Discussed with RN and RT ESSENCE HERNANDEZ MD Apr 29, 2020 08:29
[2020-04-29] MEDS: ZINC SULFATE 220 MG CAPSULE. PO SCH (08:30)
[2020-04-29] MEDS: DOXYCYCLINE HYCLATE 100 MG TABLET PO SCH ×2 (08:30→19:57)
[2020-04-29] MEDS: DULoxetine HCL 30 MG CAPSULE.DR PO SCH ×2 (08:30→19:57)
[2020-04-29] MEDS: DEXAMETHASONE 4 MG TABLET PO SCH (08:30)
[2020-04-29] MEDS: LINAGLIPTIN 5 MG TABLET PO SCH (08:31)
[2020-04-29] MEDS: TORSEMIDE 20 MG TABLET. PO SCH ×2 (08:31→15:53)
[2020-04-29] MEDS: INSULIN LISPRO 300 UNITS/3 ML VIAL. SQ SCH ×3 (08:34→18:13)
[2020-04-29] MEDS: INSULIN GLARGINE SYRINGE. SQ SCH ×2 (08:35→20:53)
--- NOTE | 2020-04-29 08:54 | PDOC ---
Provider Note Date of Service: DATE: 04/29/20 TIME: 08:53 Provider Note on bipap re covid, glucose high re decadron, will inc lantus- rest same Justifications for Admission Other Justification VERNA GARCIA MD Apr 29, 2020 08:54
--- NOTE | 2020-04-29 10:40 | CONS ---
DATE OF CONSULTATION: 04/29/2020 INFECTIOUS DISEASE CONSULTATION REFERRING PHYSICIAN: Dr. Duran REASON FOR CONSULTATION: COVID-19 infection. HISTORY OF PRESENT ILLNESS: This is a 55-year-old female with history of morbid obesity; hypertension' hyperlipidemia; end-stage renal disease, on peritoneal dialysis. Presented to the ER with complaints of fever, sore throat, generalized weakness, body ache, fatigue, dry cough, worsening shortness of breath week prior to admission. COVID-19 test came back positive on the day of admission. She was hypoxic, was placed on BiPAP. She was febrile at 102. White count was 7.2. Normal lactate. BNP of 1368. Troponin normal. The patient was started on remdesivir, steroids, Rocephin, and doxycycline. ID consultation has been requested for further evaluation and treatment. Today, the patient is on BiPAP. States feels a little better. Fever pattern is improving. Denies any nausea, vomiting, diarrhea, abdominal pain. PAST MEDICAL HISTORY: Diabetes; hyperlipidemia; hypertension; obesity; end-stage renal disease, on peritoneal dialysis; sleep apnea, on CPAP. REVIEW OF SYSTEMS: Negative except for above in HPI. SOCIAL HISTORY: Former smoker, no alcohol. FAMILY HISTORY: Mother was recently diagnosed with COVID. CURRENT MEDICATIONS: IV ceftriaxone, doxycycline, remdesivir, dexamethasone. Other medications reviewed in medication list. ALLERGIES: MORPHINE. PHYSICAL EXAMINATION: VITAL SIGNS: Temperature 98, T-max 102, pulse 92, respiratory rate 18, blood pressure 148/75, oxygen saturation 98% on BiPAP. GENERAL: Alert, awake female, on BiPAP. Appears comfortable, in no acute distress. HEENT: Normocephalic, atraumatic. Anicteric. No thrush. NECK: Supple, no JVD. LUNGS: Decreased breath sounds. No wheezing. HEART: S1, S2. No gallops or murmurs. ABDOMEN: Soft, obese. Bowel sounds present, nontender, nondistended. EXTREMITIES: No edema, no cyanosis. DERMATOLOGIC: Warm, dry. No generalized rash. NEUROLOGIC: Alert and oriented x 3, grossly nonfocal. LABORATORY DATA: WBC 5.1, hemoglobin 12.3, hematocrit 37.3, platelets 205. Sodium 134, potassium 3.3, chloride 94, bicarb 24, BUN 78, creatinine 4.8. Normal lactate. Glucose 348, AST 49, ALT 26, alk phos 84, albumin 2.4. Influenza screen negative. IMAGING: CTA: No evidence of pulmonary embolic disease, multifocal bilateral ground-glass opacities and consolidation consistent with the patient's history of infection, dilated pulmonary trunk, which may be seen with pulmonary hypertension. Chest x-ray reviewed. IMPRESSION: 1. COVID-19 infection. 2. Acute hypoxic respiratory failure due to COVID-19 viral pneumonia. 3. Chronic kidney disease, on peritoneal dialysis. 4. Diabetes mellitus. 5. Morbid obesity. 6. History of obstructive sleep apnea. 7. Hyperlipidemia, hypertension. RECOMMENDATIONS: 1. Continue remdesivir 04/28/2020. 2. Continue steroids. 3. Continue ceftriaxone and doxycycline. 4. Continue supportive care. 5. Maintain aspiration precaution. 6. Monitor labs and cultures. Thank you, Dr. Martin, for consulting Infectious Disease to participate in this patient's care. If you have any questions, do not hesitate to contact me. STANTON ALBERT MD DR: AMA/batool JOB#: [id number] / [id number]
[2020-04-29 10:51] VITALS: BP 172/81
--- NOTE | 2020-04-29 10:54 | NUR ---
SS following for discharge planning. SS reviewed pt chart and discussed with pt RN. Pt is from home and is currently requiring BIPAP at 60%. COVID19 positive. Pt on IV Remdesivir and IV Rocephin. Not stable. Pt has peritoneal dialysis. SS will continue to follow for discharge planning.
[2020-04-29] MEDS ORDERED: POTASSIUM CHLORIDE 20 MEQ TABLET.ER. PO ONE (12:30)
[2020-04-29] MEDS: cefTRIAXone IV Push 1 GM VIAL. IVP SCH (12:32)
[2020-04-29] MEDS ORDERED: VIT1TABL71 PO (13:19)
[2020-04-29] MEDS ORDERED: CARV25TA PO (13:19)
[2020-04-29] MEDS ORDERED: ASCO500C PO (13:19)
[2020-04-29] MEDS ORDERED: SEVE800T9 PO (13:19)
[2020-04-29] MEDS ORDERED: CHOL500021 PO (13:19)
[2020-04-29] MEDS ORDERED: METO5TAB4 PO (13:19)
[2020-04-29] MEDS ORDERED: ASPI-630 PO (13:19)
--- NOTE | 2020-04-29 13:42 | PDOC ---
Renal-Progress Notes Subjective Notes Notes BETTER BUT STILL FEELING POORLY History of Present Illness Hx of present illness STILL HAS SOB Vitals Vitals Vital Signs Date Time Temp Pulse Resp B/P (MAP) Pulse Ox O2 Delivery O2 Flow Rate FiO2 04/29/20 10:51 97.4 101 22 172/81 (111) 95 BiPAP/CPAP 97.4 04/29/20 09:20 5.0 Weight Weight [ ] I.O. Intake and Output Intake and Output 04/29/20 07:00 Intake Total 2280 ml Output Total 400 ml Balance 1880 ml Intake Oral 2280 ml Output Urine Total 400 ml # Voids 1 # Bowel Movements 1 Labs Labs Laboratory Tests Test 04/28/20 16:51 04/28/20 17:08 04/28/20 20:34 04/29/20 06:21 Glucose (Fingerstick) 51 mg/dL (70-99) 130 mg/dL (70-99) 369 mg/dL (70-99) White Blood Count 5.1 x10^3/uL (4.0-11.0) Red Blood Count 3.75 x10^6/uL (3.50-5.40) Hemoglobin 12.3 g/dL (12.0-15.5) Hematocrit 37.3 % (36.0-47.0) Mean Corpuscular Volume 99 fL (79-100) Mean Corpuscular Hemoglobin 33 pg (25-35) Mean Corpuscular Hemoglobin Concent 33 g/dL (31-37) Red Cell Distribution Width 17.7 % (11.5-14.5) Platelet Count 205 x10^3/uL (140-400) Neutrophils (%) (Auto) 82 % (31-73) Lymphocytes (%) (Auto) 12 % (24-48) Monocytes (%) (Auto) 5 % (0-9) Eosinophils (%) (Auto) 0 % (0-3) Basophils (%) (Auto) 1 % (0-3) Neutrophils # (Auto) 4.2 x10^3/uL (1.8-7.7) Lymphocytes # (Auto) 0.6 x10^3/uL (1.0-4.8) Monocytes # (Auto) 0.3 x10^3/uL (0.0-1.1) Eosinophils # (Auto) 0.0 x10^3/uL (0.0-0.7) Basophils # (Auto) 0.0 x10^3/uL (0.0-0.2) Sodium Level 134 mmol/L (136-145) Potassium Level 3.3 mmol/L (3.5-5.1) Chloride Level 94 mmol/L (98-107) Carbon Dioxide Level 24 mmol/L (21-32) Anion Gap 16 (6-14) Blood Urea Nitrogen 78 mg/dL (7-20) Creatinine 4.8 mg/dL (0.6-1.0) Estimated GFR (Cockcroft-Gault) 9.4 BUN/Creatinine Ratio 16 (6-20) Glucose Level 382 mg/dL (70-99) Calcium Level 8.8 mg/dL (8.5-10.1) Phosphorus Level 8.5 mg/dL (2.6-4.7) Total Bilirubin 0.3 mg/dL (0.2-1.0) Direct Bilirubin < 0.1 mg/dL (0.0-0.2) Aspartate Amino Transf (AST/SGOT) 49 U/L (15-37) Alanine Aminotransferase (ALT/SGPT) 26 U/L (14-59) Alkaline Phosphatase 84 U/L (46-116) Total Protein 7.4 g/dL (6.4-8.2) Albumin 2.4 g/dL (3.4-5.0) Albumin/Globulin Ratio 0.5 (1.0-1.7) Test 04/29/20 07:15 04/29/20 11:28 Glucose (Fingerstick) 348 mg/dL (70-99) 301 mg/dL (70-99) Micro Micro Microbiology 04/26/20 Blood Culture - Preliminary, Resulted NO GROWTH AFTER 2 DAYS Review of Systems Constitutional: yes: alert, oriented Ears/Nose/Throat: Yes: no symptom reported Eyes: Yes: no symptom reported Pulmonary: Yes dyspnea Cardiovascular: Yes no symptom reported Gastrointestional: Yes: constipation Genitourinary: Yes: no symptom reported Musculoskeletal: Yes: muscle stiffness Skin: Yes no symptom reported Psychiatric/Neurological: Yes: no symptom reported Endocrine: Yes: no symptom reported Physical Exam General Appearance: no apparent distress Skin: warm Respiratory: decreased breath sounds Heart: S1S2 Abdomen: soft Genitourinary: bladder flat Extremities: pulses present Neurology: alert, oriented Musculoskeletal: low back pain, Osteoarthritis Assessment Assessment IMP ESRD ANEMIA COVID 19 DM II MORBID OBESITY PLAN REPLACE K RESUME BINDERS CONT WITH APD ID EVAL AND TX CARTER PEREZ MD Apr 29, 2020 13:42
[2020-04-29] MEDS ORDERED: REMDESIVIR 100mg in NORMAL SALINE 250ML X 4 DAYS IV SCH (14:00)
[2020-04-29] MEDS: REMDESIVIR 100mg in NORMAL SALINE 250ML X 4 DAYS IV SCH (14:10)
[2020-04-29 14:45] VITALS: BP 178/84
[2020-04-29] MEDS: FOLIC/VIT B COMP W-C (RENAL) TABLET. PO SCH (15:53)
[2020-04-29] MEDS: ACETAMINOPHEN 325 MG TABLET. PO PRN ×2 (15:53→19:57)
[2020-04-29] MEDS: SEVELAMER CARBONATE 800 MG TABLET. PO SCH (18:05)
[2020-04-29 19:40] VITALS: BP 176/82
[2020-04-29] MEDS: MONTELUKAST SODIUM 10 MG TABLET. PO SCH (19:57)
[2020-04-29] MEDS: ATORVASTATIN CALCIUM 40 MG TABLET. PO SCH (19:57)
[2020-04-29] MEDS: LACTOBACILLUS RHAMNOSUS GG 1 CAPSULE. PO SCH (19:57)
[2020-04-29] MEDS: GABAPENTIN 300 MG CAPSULE. PO SCH (19:58)
[2020-04-29 22:45] VITALS: BP 179/83
[2020-04-30] VITALS (11 sets, daily range): BP systolic 130–179; BP diastolic 68–93
[2020-04-30] MEDS: HEPARIN for SUB-Q USE 5,000 UNIT/ML VIAL. SQ SCH ×3 (06:28→20:40)
--- NOTE | 2020-04-30 06:52 | NUR ---
RT notified at this time pt on 65% FIo2 in bed resting, no recent exertion. o2 declined to 78% on current settings. RT states change FI02 to 85% and they will see patient shortly. Pt 02 Sat improved to 89% on new 85% fio2. Pt able to tell me through bipap mask that she is alright clearly. She appears in no distress, however has had slightly progressing dyspnea with exertion with bedside commode trips.
[2020-04-30] MEDS ORDERED: POTASSIUM CHLORIDE 20 MEQ TABLET.ER. PO SCH (08:00)
[2020-04-30] MEDS: LACTOBACILLUS RHAMNOSUS GG 1 CAPSULE. PO SCH ×2 (08:09→20:40)
[2020-04-30] MEDS: ACETAMINOPHEN 325 MG TABLET. PO PRN (08:09)
[2020-04-30] MEDS: TORSEMIDE 20 MG TABLET. PO SCH ×2 (08:09→16:40)
[2020-04-30] MEDS: SEVELAMER CARBONATE 800 MG TABLET. PO SCH ×3 (08:09→17:00)
[2020-04-30] MEDS: FOLIC/VIT B COMP W-C (RENAL) TABLET. PO SCH (08:10)
[2020-04-30] MEDS: ZINC SULFATE 220 MG CAPSULE. PO SCH (08:10)
[2020-04-30] MEDS: MULTIVITAMIN with MINERAL TABLET. PO SCH (08:10)
[2020-04-30] MEDS: DULoxetine HCL 30 MG CAPSULE.DR PO SCH ×2 (08:10→20:40)
[2020-04-30] MEDS: CHOLECALCIFEROL (VITAMIN D3) 1,000 UNIT TABLET PO SCH (08:10)
[2020-04-30] MEDS: DOXYCYCLINE HYCLATE 100 MG TABLET PO SCH ×2 (08:10→20:40)
[2020-04-30] MEDS: DEXAMETHASONE 4 MG TABLET PO SCH (08:10)
[2020-04-30] MEDS: LINAGLIPTIN 5 MG TABLET PO SCH (08:11)
[2020-04-30] MEDS: ASCORBIC ACID 1,000 MG TABLET PO SCH (08:11)
--- NOTE | 2020-04-30 08:50 | PDOC ---
Infectious Disease Note Subjective: Subjective Patient on BiPAP Vital Signs: Vital Signs Vital Signs Date Time Temp Pulse Resp B/P (MAP) Pulse Ox O2 Delivery O2 Flow Rate FiO2 04/30/20 07:30 89 BiPAP/CPAP 04/30/20 07:00 96.9 85 20 144/68 (93) 96.9 04/29/20 20:00 5.0 Physical Exam: PHYSICAL EXAM GENERAL: Patient on BiPAP, arousable HEENT: Normocephalic, atraumatic. Anicteric. No thrush. NECK: Supple, no JVD. LUNGS: Decreased breath sounds. No wheezing. HEART: S1, S2. No gallops or murmurs. ABDOMEN: Soft bowel sounds present nontender nondistended EXTREMITIES: No edema, no cyanosis. DERMATOLOGIC: Warm, dry. No generalized rash. NEUROLOGIC: Sleepy but arousable, Medications: Inpatient Meds: Current Medications Medications (Trade) Dose Ordered Sig/Mya Start Time Stop Time Status Last Admin Dose Admin Acetaminophen (Tylenol) 650 mg PRN Q4HRS PRN 04/27/20 23:15 04/30/20 08:09 650 MG Ascorbic Acid (Vitamin C) 1,000 mg DAILY 04/28/20 13:00 04/30/20 08:11 1,000 MG Atorvastatin Calcium (Lipitor) 40 mg QHS 04/27/20 21:00 04/29/20 19:57 40 MG Azithromycin 250 ml @ 250 mls/hr 1X ONCE 04/26/20 23:00 04/26/20 23:59 DC 04/26/20 23:18 250 MLS/HR Ceftriaxone Sodium (Rocephin) 1 gm Q24H 04/28/20 13:00 04/29/20 12:32 1 GM Cyclobenzaprine HCl (Flexeril) 10 mg PRN QID PRN 04/28/20 21:00 04/28/20 21:10 10 MG Dexamethasone (Decadron) 6 mg 1X ONCE 04/28/20 13:00 04/28/20 13:01 DC 04/28/20 12:34 6 MG Dextrose (Dextrose 50%-Water Syringe) 12.5 gm PRN Q15MIN PRN 04/27/20 04:00 Doxycycline Hyclate (Vibra-Tab) 100 mg BID 04/28/20 13:00 04/30/20 08:10 100 MG Duloxetine HCl (Cymbalta) 30 mg BID 04/27/20 09:00 04/30/20 08:10 30 MG Enoxaparin Sodium (Lovenox 30mg Syringe) 30 mg Q24H 04/28/20 13:00 04/28/20 12:38 DC Gabapentin (Neurontin) 600 mg QHS 04/27/20 04:30 04/29/20 19:58 600 MG Heparin Sodium (Porcine) (Heparin Sodium) 5,000 unit Q8HRS 04/28/20 14:00 04/30/20 06:28 5,000 UNIT Info (CONTRAST GIVEN -- Rx MONITORING) 1 each PRN DAILY PRN 04/26/20 20:45 04/28/20 20:44 DC Insulin Glargine (Lantus Syringe) 85 unit BID 04/29/20 21:00 04/29/20 20:53 85 UNIT Insulin Human Lispro (HumaLOG) 30 units TIDWMEALS 04/29/20 12:00 04/29/20 18:13 30 UNITS Iohexol (Omnipaque 350 Mg/ml) 100 ml 1X ONCE 04/26/20 20:45 04/26/20 20:46 DC 04/26/20 21:20 100 ML Lactobacillus Rhamnosus (Culturelle) 1 cap BID 04/29/20 21:00 04/30/20 08:09 1 CAP Linagliptin (Tradjenta) 5 mg DAILY 04/27/20 09:00 04/30/20 08:11 5 MG Montelukast Sodium (Singulair) 10 mg HS 04/27/20 21:00 04/29/20 19:57 10 MG Multivitamins (Thera M Plus) 1 tab DAILY 04/27/20 09:00 04/30/20 08:10 1 TAB Non-Formulary Medication (Gabapentin ) 600 mg HS 04/27/20 21:00 UNV Ondansetron HCl (Zofran Odt) 4 mg PRN Q6HRS PRN 04/28/20 12:15 04/28/20 12:34 4 MG Ondansetron HCl (Zofran) 4 mg PRN Q8HRS PRN 04/26/20 22:45 04/27/20 22:44 DC Potassium Chloride (Klor-Con) 20 meq [id number] 04/30/20 08:00 04/30/20 08:10 20 MEQ Remdesivir 100 mg/ Sodium Chloride 230 ml @ 460 mls/hr Q24H 04/29/20 14:00 05/02/20 14:29 04/29/20 14:10 460 MLS/HR Remdesivir 200 mg/ Sodium Chloride 210 ml @ 210 mls/hr 1X ONCE 04/28/20 14:00 04/28/20 14:59 DC 04/28/20 15:39 210 MLS/HR Sevelamer Carbonate (Renvela) 800 mg TIDWMEALS 04/29/20 17:00 04/30/20 08:09 800 MG Sodium Chloride 1,000 ml @ 1,000 mls/hr 1X ONCE 04/26/20 19:15 04/26/20 20:14 DC 04/26/20 19:17 1,000 MLS/HR Temazepam (Restoril) 15 mg PRN QHS PRN 04/28/20 21:00 04/29/20 06:48 DC 04/28/20 22:48 15 MG Torsemide (Demadex) 40 mg [id number] 04/27/20 09:00 04/30/20 08:09 40 MG Vitamin B Complex/ Vitamin C (Kelly-Jalen) 1 tab DAILY 04/29/20 14:00 04/30/20 08:10 1 TAB Vitamin D (Vitamin D3) 500 unit DAILY 04/28/20 13:00 04/30/20 08:10 500 UNIT Zinc Sulfate (Orazinc) 220 mg DAILY 04/28/20 13:00 04/30/20 08:10 220 MG Labs: Lab Laboratory Tests Test 04/29/20 11:28 04/29/20 16:42 04/29/20 19:50 04/30/20 07:36 Glucose (Fingerstick) 301 mg/dL (70-99) 226 mg/dL (70-99) 315 mg/dL (70-99) 158 mg/dL (70-99) Objective: Assessment: 1. COVID-19 infection. 2. Acute hypoxic respiratory failure due to COVID-19 viral pneumonia. 3. Chronic kidney disease, on peritoneal dialysis. 4. Diabetes mellitus. 5. Morbid obesity. 6. History of obstructive sleep apnea. 7. Hyperlipidemia, hypertension. Plan: Plan of Care 1. Continue remdesivir 04/28/2020. 2. Continue steroids. 3. Continue ceftriaxone and doxycycline. 4. Continue supportive care. 5. Maintain aspiration precaution. 6. Monitor labs and cultures. STANTON ALBERT MD Apr 30, 2020 08:50
[2020-04-30] MEDS: INSULIN LISPRO 300 UNITS/3 ML VIAL. SQ SCH ×3 (08:52→17:00)
[2020-04-30] MEDS: INSULIN GLARGINE SYRINGE. SQ SCH ×3 (08:54→20:39)
--- NOTE | 2020-04-30 08:55 | PDOC ---
Provider Note Date of Service: DATE: 04/30/20 TIME: 08:54 Provider Note VSS, NO TEMP, BUT HIGHER o2 NEEDS, WILL MOVE TO ICU PER PULMONARY, MEDS SAME, glucose better re insulin Justifications for Admission Other Justification VERNA GARCIA MD Apr 30, 2020 08:55
--- NOTE | 2020-04-30 09:28 | PDOC ---
PULMONARY PROGRESS NOTES DATE: 04/30/20 TIME: 09:25 Subjective PT. is on BIPAP , no on 90%FIO2 nursing reports pt. is not able to tolerate being off BIPAP No other concerns Vitals Vital Signs Date Time Temp Pulse Resp B/P (MAP) Pulse Ox O2 Delivery O2 Flow Rate FiO2 04/30/20 07:30 89 BiPAP/CPAP 04/30/20 07:00 96.9 85 20 144/68 (93) 96.9 04/29/20 20:00 5.0 Comments Patient is seen during ID pandemic, visual exam performed on BiPAP No accessory muscle use no distress No obvious rash or edema General: Alert, No acute distress Labs Laboratory Tests Test 04/28/20 11:11 04/28/20 16:51 04/28/20 17:08 04/28/20 20:34 Glucose (Fingerstick) 207 mg/dL (70-99) 51 mg/dL (70-99) 130 mg/dL (70-99) 369 mg/dL (70-99) Test 04/29/20 06:21 04/29/20 07:15 04/29/20 11:28 04/29/20 16:42 White Blood Count 5.1 x10^3/uL (4.0-11.0) Red Blood Count 3.75 x10^6/uL (3.50-5.40) Hemoglobin 12.3 g/dL (12.0-15.5) Hematocrit 37.3 % (36.0-47.0) Mean Corpuscular Volume 99 fL (79-100) Mean Corpuscular Hemoglobin 33 pg (25-35) Mean Corpuscular Hemoglobin Concent 33 g/dL (31-37) Red Cell Distribution Width 17.7 % (11.5-14.5) Platelet Count 205 x10^3/uL (140-400) Neutrophils (%) (Auto) 82 % (31-73) Lymphocytes (%) (Auto) 12 % (24-48) Monocytes (%) (Auto) 5 % (0-9) Eosinophils (%) (Auto) 0 % (0-3) Basophils (%) (Auto) 1 % (0-3) Neutrophils # (Auto) 4.2 x10^3/uL (1.8-7.7) Lymphocytes # (Auto) 0.6 x10^3/uL (1.0-4.8) Monocytes # (Auto) 0.3 x10^3/uL (0.0-1.1) Eosinophils # (Auto) 0.0 x10^3/uL (0.0-0.7) Basophils # (Auto) 0.0 x10^3/uL (0.0-0.2) Sodium Level 134 mmol/L (136-145) Potassium Level 3.3 mmol/L (3.5-5.1) Chloride Level 94 mmol/L (98-107) Carbon Dioxide Level 24 mmol/L (21-32) Anion Gap 16 (6-14) Blood Urea Nitrogen 78 mg/dL (7-20) Creatinine 4.8 mg/dL (0.6-1.0) Estimated GFR (Cockcroft-Gault) 9.4 BUN/Creatinine Ratio 16 (6-20) Glucose Level 382 mg/dL (70-99) Calcium Level 8.8 mg/dL (8.5-10.1) Phosphorus Level 8.5 mg/dL (2.6-4.7) Total Bilirubin 0.3 mg/dL (0.2-1.0) Direct Bilirubin < 0.1 mg/dL (0.0-0.2) Aspartate Amino Transf (AST/SGOT) 49 U/L (15-37) Alanine Aminotransferase (ALT/SGPT) 26 U/L (14-59) Alkaline Phosphatase 84 U/L (46-116) Total Protein 7.4 g/dL (6.4-8.2) Albumin 2.4 g/dL (3.4-5.0) Albumin/Globulin Ratio 0.5 (1.0-1.7) Glucose (Fingerstick) 348 mg/dL (70-99) 301 mg/dL (70-99) 226 mg/dL (70-99) Test 04/29/20 19:50 04/30/20 07:36 Glucose (Fingerstick) 315 mg/dL (70-99) 158 mg/dL (70-99) Laboratory Tests Test 04/29/20 11:28 04/29/20 16:42 04/29/20 19:50 04/30/20 07:36 Glucose (Fingerstick) 301 mg/dL (70-99) 226 mg/dL (70-99) 315 mg/dL (70-99) 158 mg/dL (70-99) Medications Active Scripts Medications Dose Route/Sig Max Daily Dose Days Date Category Dose Instructions Gabapentin 600 Mg Tablet 600 Mg PO HS 04/27/20 Reported Gabapentin (Gabapentin) 300 Mg Capsule 300 Mg PO DAILY 04/27/20 Reported Lantus Solostar (Insulin Glargine,Hum.rec.anlog) 100 Unit/1 Ml Insuln.pen 75 Unit SQ BID 09/19/19 Reported Januvia (Sitagliptin Phosphate) 25 Mg Tablet 25 Mg PO DAILY 09/19/19 Reported Novolog (Insulin Aspart) 100 Unit/1 Ml Cartridge 0 SQ TIDAC 01/26/19 Reported Sliding scale; patient has printout (at home) of scale. Unknown at this time. Singulair Tablet (Montelukast Sodium) 10 Mg Tablet 10 Mg PO HS 11/24/18 Reported Atorvastatin Calcium 40 Mg Tablet 1 Tab PO QHS 11/24/18 Reported Torsemide 20 Mg Tablet 2 Tab PO BID 11/24/18 Reported Cymbalta (Duloxetine Hcl) 30 Mg Capsule.dr 1 Cap PO BID 11/24/18 Reported Daily Jalen (Multivitamin) 1 Each Tablet 1 Each PO DAILY 11/24/18 Reported Comments CTA chest IMPRESSION: 1. No evidence of pulmonary thromboembolic disease. 2. Multifocal bilateral groundglass opacities and consolidations, consistent with patient's history of infection. 3. Dilated pulmonary trunk, which can be seen with pulmonary hypertension. Impression . IMPRESSION: 1. Acute hypoxemic respiratory failure secondary to COVID-19 viral pneumonia./ ALI/ARDS 2. COVID-[address] angiogram, no evidence of pulmonary embolism. 4. Chronic kidney disease, on peritoneal dialysis. 5. Morbid obesity. 6. Obstructive sleep apnea. 7. Hyperlipidemia. 8. Hypertension. Plan . PLAN: Continue supplemental oxygen to keep oxygen saturations greater than 92%, currently on BiPAP 30/04 with a rate of 18 at 90% FiO2. May get tired with BIPAP. will need to transfer to ICU , on Vapotherm when bed available Follow chest x-ray/ABG as needed. will get cxr today Continue steroids with slow taper Continue empiric antibiotics, currently on Rocephin and doxy Continue full course of remdesivir Follow nephrology recommendations in regards to peritoneal dialysis DVT/GI prophylaxis Discussed with RN and RT RAFAL SINHA MD Apr 30, 2020 09:28
--- NOTE | 2020-04-30 10:01 | NUR ---
SS following up with discharge planning. SS reviewed pt chart and discussed with pt RN. Pt is currently on the BIPAP at 90%. COVID19 positive. Pt on IV Rocephin and IV Remdesivir. Not stable. Probable transfer to ICU today when bed available. SS will continue to follow for discharge planning.
[2020-04-30 10:30] LABS: CALCIUM 9.1 mg/dL (8.5-10.1); CREATININE 4.9 mg/dL (0.6-1.0); GFR 9.2; POTASSIUM 3.3 mmol/L (3.5-5.1)
[2020-04-30] MEDS: cefTRIAXone IV Push 1 GM VIAL. IVP SCH (12:36)
--- NOTE | 2020-04-30 12:44 | PDOC ---
Renal-Progress Notes Subjective Notes Notes SOB AND ON BIPAP History of Present Illness Hx of present illness STILL SOB Vitals Vitals Vital Signs Date Time Temp Pulse Resp B/P (MAP) Pulse Ox O2 Delivery O2 Flow Rate FiO2 04/30/20 11:00 97.9 90 20 160/77 (104) 97 BiPAP/CPAP 97.9 04/30/20 08:00 5.0 Weight Weight [ ] I.O. Intake and Output Intake and Output 04/30/20 07:00 Intake Total 1550 ml Output Total 1400 ml Balance 150 ml Intake Oral 1550 ml Output Urine Total 1400 ml Labs Labs Laboratory Tests Test 04/29/20 16:42 04/29/20 19:50 04/30/20 07:36 04/30/20 09:51 Glucose (Fingerstick) 226 mg/dL (70-99) 315 mg/dL (70-99) 158 mg/dL (70-99) D-Dimer (Diya) 2.06 ug/mlFEU (0.00-0.50) Sodium Level 141 mmol/L (136-145) Potassium Level 3.3 mmol/L (3.5-5.1) Chloride Level 99 mmol/L (98-107) Carbon Dioxide Level 26 mmol/L (21-32) Anion Gap 16 (6-14) Blood Urea Nitrogen 93 mg/dL (7-20) Creatinine 4.9 mg/dL (0.6-1.0) Estimated GFR (Cockcroft-Gault) 9.2 Glucose Level 232 mg/dL (70-99) Calcium Level 9.1 mg/dL (8.5-10.1) Test 04/30/20 11:47 Glucose (Fingerstick) 156 mg/dL (70-99) Micro Micro Microbiology 04/26/20 Blood Culture - Preliminary, Resulted NO GROWTH AFTER 3 DAYS Review of Systems Constitutional: yes: alert, oriented Ears/Nose/Throat: Yes: no symptom reported Eyes: Yes: no symptom reported Pulmonary: Yes dyspnea Cardiovascular: Yes no symptom reported Gastrointestional: Yes: constipation Genitourinary: Yes: no symptom reported Musculoskeletal: Yes: muscle stiffness Skin: Yes no symptom reported Psychiatric/Neurological: Yes: no symptom reported Endocrine: Yes: no symptom reported Physical Exam General Appearance: no apparent distress Skin: warm Respiratory: decreased breath sounds Heart: S1S2 Abdomen: soft Genitourinary: bladder flat Extremities: pulses present Neurology: alert, oriented Musculoskeletal: low back pain, Osteoarthritis Assessment Assessment IMP ESRD ACUTE RESP FAILURE ANEMIA COVID 19 DM II MORBID OBESITY PLAN REPLACE K RESUME BINDERS CONT WITH APD ID EVAL AND TX D/W DR SINHA CONT BIPAP MAY NEED VENT SUPPORT CARTER PEREZ MD Apr 30, 2020 12:44
[2020-04-30] MEDS ORDERED: POTASSIUM CHLORIDE 20 MEQ TABLET.ER. PO ONE (12:45)
--- NOTE | 2020-04-30 13:37 | RAD ---
EXAM: XR CHEST 1V 04/30/2020 10:02 AM CLINICAL INDICATION: Pneumonia, hypoxia, Covid positive COMPARISON: Chest radiograph 04/26/[address] chest 04/26/2020 TECHNIQUE: AP upright view of the chest FINDINGS: Cardiomegaly is unchanged. Lungs are adequately expanded. Bilateral airspace opacities hav e not significantly changed. No pleural effusion or pneumothorax. No acute osseous abnormality. IMPRESSION: 1. Unchanged bilateral airspace opacities. 2. Unchanged cardiomegaly. Electronically signed by: Usha Singh MD (04/30/2020 1:34 PM) [id number]
[2020-04-30] MEDS: REMDESIVIR 100mg in NORMAL SALINE 250ML X 4 DAYS IV SCH (14:41)
[2020-04-30] MEDS: GABAPENTIN 300 MG CAPSULE. PO SCH (20:40)
[2020-05-01] VITALS (21 sets, daily range): BP systolic 108–184; BP diastolic 63–98
[2020-05-01] MEDS: CYCLOBENZAPRINE 10 MG TABLET. PO PRN (00:02)
[2020-05-01] MEDS: ACETAMINOPHEN 325 MG TABLET. PO PRN ×2 (00:02→19:49)
[2020-05-01] MEDS: HEPARIN for SUB-Q USE 5,000 UNIT/ML VIAL. SQ SCH ×3 (06:27→20:51)
--- NOTE | 2020-05-01 07:56 | PDOC ---
Infectious Disease Note Subjective: Subjective Patient transferred to ICU yesterday Remains on BiPAP Feels a little better today Vital Signs: Vital Signs Vital Signs Date Time Temp Pulse Resp B/P (MAP) Pulse Ox O2 Delivery O2 Flow Rate FiO2 05/01/20 06:00 92 153/70 (97) 93 vapotherm/nonrebreather 05/01/20 05:00 97.9 97.9 05/01/20 04:00 40.0 05/01/20 01:00 15 Physical Exam: PHYSICAL EXAM GENERAL: Patient on BiPAP, arousable HEENT: Normocephalic, atraumatic. Anicteric. No thrush. NECK: Supple, no JVD. LUNGS: Decreased breath sounds. No wheezing. HEART: S1, S2. No gallops or murmurs. ABDOMEN: Soft bowel sounds present nontender nondistended EXTREMITIES: No edema, no cyanosis. DERMATOLOGIC: Warm, dry. No generalized rash. NEUROLOGIC: Sleepy but arousable, Medications: Inpatient Meds: Current Medications Medications (Trade) Dose Ordered Sig/Mya Start Time Stop Time Status Last Admin Dose Admin Acetaminophen (Tylenol) 650 mg PRN Q4HRS PRN 04/27/20 23:15 05/01/20 00:02 650 MG Ascorbic Acid (Vitamin C) 1,000 mg DAILY 04/28/20 13:00 04/30/20 08:57 DC 04/30/20 08:11 1,000 MG Atorvastatin Calcium (Lipitor) 40 mg QHS 04/27/20 21:00 04/30/20 08:57 DC 04/29/20 19:57 40 MG Azithromycin 250 ml @ 250 mls/hr 1X ONCE 04/26/20 23:00 04/26/20 23:59 DC 04/26/20 23:18 250 MLS/HR Ceftriaxone Sodium (Rocephin) 1 gm Q24H 04/28/20 13:00 04/30/20 12:36 1 GM Cyclobenzaprine HCl (Flexeril) 10 mg PRN QID PRN 04/28/20 21:00 05/01/20 00:02 10 MG Dexamethasone (Decadron) 6 mg 1X ONCE 04/28/20 13:00 04/28/20 13:01 DC 04/28/20 12:34 6 MG Dextrose (Dextrose 50%-Water Syringe) 12.5 gm PRN Q15MIN PRN 04/27/20 04:00 Doxycycline Hyclate (Vibra-Tab) 100 mg BID 04/28/20 13:00 04/30/20 20:40 100 MG Duloxetine HCl (Cymbalta) 30 mg BID 04/27/20 09:00 04/30/20 20:40 30 MG Enoxaparin Sodium (Lovenox 30mg Syringe) 30 mg Q24H 04/28/20 13:00 04/28/20 12:38 DC Gabapentin (Neurontin) 600 mg QHS 04/27/20 04:30 04/30/20 20:40 600 MG Heparin Sodium (Porcine) (Heparin Sodium) 5,000 unit Q8HRS 04/28/20 14:00 05/01/20 06:27 5,000 UNIT Info (CONTRAST GIVEN -- Rx MONITORING) 1 each PRN DAILY PRN 04/26/20 20:45 04/28/20 20:44 DC Insulin Glargine (Lantus Syringe) 85 unit BID 04/29/20 21:00 04/30/20 20:39 85 UNIT Insulin Human Lispro (HumaLOG) 30 units TIDWMEALS 04/29/20 12:00 04/30/20 13:00 20 UNITS Iohexol (Omnipaque 350 Mg/ml) 100 ml 1X ONCE 04/26/20 20:45 04/26/20 20:46 DC 04/26/20 21:20 100 ML Lactobacillus Rhamnosus (Culturelle) 1 cap BID 04/29/20 21:00 04/30/20 20:40 1 CAP Linagliptin (Tradjenta) 5 mg DAILY 04/27/20 09:00 04/30/20 08:11 5 MG Montelukast Sodium (Singulair) 10 mg HS 04/27/20 21:00 04/30/20 08:57 DC 04/29/20 19:57 10 MG Multivitamins (Thera M Plus) 1 tab DAILY 04/27/20 09:00 04/30/20 08:10 1 TAB Non-Formulary Medication (Gabapentin ) 600 mg HS 04/27/20 21:00 UNV Ondansetron HCl (Zofran Odt) 4 mg PRN Q6HRS PRN 04/28/20 12:15 04/28/20 12:34 4 MG Ondansetron HCl (Zofran) 4 mg PRN Q8HRS PRN 04/26/20 22:45 04/27/20 22:44 DC Potassium Chloride (Klor-Con) 20 meq 1X ONCE 04/30/20 12:45 04/30/20 12:47 DC 04/30/20 14:40 20 MEQ Remdesivir 100 mg/ Sodium Chloride 230 ml @ 460 mls/hr Q24H 04/29/20 14:00 05/02/20 14:29 04/30/20 14:41 460 MLS/HR Remdesivir 200 mg/ Sodium Chloride 210 ml @ 210 mls/hr 1X ONCE 04/28/20 14:00 04/28/20 14:59 DC 04/28/20 15:39 210 MLS/HR Sevelamer Carbonate (Renvela) 800 mg TIDWMEALS 04/29/20 17:00 04/30/20 12:36 800 MG Sodium Chloride 1,000 ml @ 1,000 mls/hr 1X ONCE 04/26/20 19:15 04/26/20 20:14 DC 04/26/20 19:17 1,000 MLS/HR Sterile Water (WATER for RESP) 1,000 ml CONT PRN 04/30/20 20:30 Temazepam (Restoril) 15 mg PRN QHS PRN 04/28/20 21:00 04/29/20 06:48 DC 04/28/20 22:48 15 MG Torsemide (Demadex) 40 mg [id number] 04/27/20 09:00 04/30/20 16:40 40 MG Vitamin B Complex/ Vitamin C (Kelly-Jalen) 1 tab DAILY 04/29/20 14:00 04/30/20 08:10 1 TAB Vitamin D (Vitamin D3) 500 unit DAILY 04/28/20 13:00 04/30/20 08:57 DC 04/30/20 08:10 500 UNIT Zinc Sulfate (Orazinc) 220 mg DAILY 04/28/20 13:00 04/30/20 08:10 220 MG Labs: Lab Laboratory Tests Test 04/30/20 09:51 04/30/20 11:47 04/30/20 16:42 04/30/20 20:37 D-Dimer (Diya) 2.06 ug/mlFEU (0.00-0.50) Sodium Level 141 mmol/L (136-145) Potassium Level 3.3 mmol/L (3.5-5.1) Chloride Level 99 mmol/L (98-107) Carbon Dioxide Level 26 mmol/L (21-32) Anion Gap 16 (6-14) Blood Urea Nitrogen 93 mg/dL (7-20) Creatinine 4.9 mg/dL (0.6-1.0) Estimated GFR (Cockcroft-Gault) 9.2 Glucose Level 232 mg/dL (70-99) Calcium Level 9.1 mg/dL (8.5-10.1) Glucose (Fingerstick) 156 mg/dL (70-99) 98 mg/dL (70-99) 220 mg/dL (70-99) Test 05/01/20 07:44 Glucose (Fingerstick) 75 mg/dL (70-99) Objective: Assessment: 1. COVID-19 infection. 2. Acute hypoxic respiratory failure due to COVID-19 viral pneumonia. 3. Chronic kidney disease, on peritoneal dialysis. 4. Diabetes mellitus. 5. Morbid obesity. 6. History of obstructive sleep apnea. 7. Hyperlipidemia, hypertension. Plan: Plan of Care 1. Continue remdesivir 04/28/2020. 2. Continue steroids. 3. Continue ceftriaxone and doxycycline.04/28 4. Continue supportive care. 5. Maintain aspiration precaution. 6. Monitor labs and cultures. STANTON ALBERT MD May 01, 2020 07:56
[2020-05-01] MEDS: INSULIN LISPRO 300 UNITS/3 ML VIAL. SQ SCH ×3 (08:00→17:56)
--- NOTE | 2020-05-01 08:39 | PDOC ---
Provider Note Date of Service: DATE: 05/01/20 TIME: 08:38 Provider Note high flow O2 noted, glucose a little lower so will reduce lantus, less when off decadron- labs same, same meds Justifications for Admission Other Justification VERNA GARCIA MD May 01, 2020 08:39
[2020-05-01] MEDS: ZINC SULFATE 220 MG CAPSULE. PO SCH (08:50)
[2020-05-01] MEDS: SEVELAMER CARBONATE 800 MG TABLET. PO SCH ×3 (08:50→17:47)
[2020-05-01] MEDS: DOXYCYCLINE HYCLATE 100 MG TABLET PO SCH ×2 (08:50→20:50)
[2020-05-01] MEDS: TORSEMIDE 20 MG TABLET. PO SCH ×2 (08:50→16:03)
[2020-05-01] MEDS: LINAGLIPTIN 5 MG TABLET PO SCH (08:50)
[2020-05-01] MEDS: MULTIVITAMIN with MINERAL TABLET. PO SCH (08:50)
[2020-05-01] MEDS: LACTOBACILLUS RHAMNOSUS GG 1 CAPSULE. PO SCH ×2 (08:50→20:50)
[2020-05-01] MEDS: DEXAMETHASONE 4 MG TABLET PO SCH (08:50)
[2020-05-01] MEDS: FOLIC/VIT B COMP W-C (RENAL) TABLET. PO SCH (08:50)
[2020-05-01] MEDS: DULoxetine HCL 30 MG CAPSULE.DR PO SCH ×2 (08:51→20:51)
[2020-05-01] MEDS: INSULIN GLARGINE SYRINGE. SQ SCH ×2 (09:02→20:52)
[2020-05-01 09:28] LABS: CALCIUM 9.7 mg/dL (8.5-10.1); CREATININE 4.6 mg/dL (0.6-1.0); GFR 9.9; POTASSIUM 3.1 mmol/L (3.5-5.1)
[2020-05-01] MEDS: STERILE WATER for RESP 1,000 ML BAG. INH PRN ×2 (10:14→23:09)
--- NOTE | 2020-05-01 11:13 | PDOC ---
PULMONARY PROGRESS NOTES DATE: 05/01/20 TIME: 11:09 Subjective Transfer to ICU, on vapotherm no soa Vitals Vital Signs Date Time Temp Pulse Resp B/P (MAP) Pulse Ox O2 Delivery O2 Flow Rate FiO2 05/01/20 10:25 95 152/73 (99) 93 vapotherm/nonrebreather 40.0 05/01/20 07:10 98.1 17 98.1 Comments Patient is seen during , visual exam performed on vapotherm No accessory muscle use no distress No obvious rash or edema General: Alert, No acute distress Labs Laboratory Tests Test 04/29/20 11:28 04/29/20 16:42 04/29/20 19:50 04/30/20 07:36 Glucose (Fingerstick) 301 mg/dL (70-99) 226 mg/dL (70-99) 315 mg/dL (70-99) 158 mg/dL (70-99) Test 04/30/20 09:51 04/30/20 11:47 04/30/20 16:42 04/30/20 20:37 D-Dimer (Diya) 2.06 ug/mlFEU (0.00-0.50) Sodium Level 141 mmol/L (136-145) Potassium Level 3.3 mmol/L (3.5-5.1) Chloride Level 99 mmol/L (98-107) Carbon Dioxide Level 26 mmol/L (21-32) Anion Gap 16 (6-14) Blood Urea Nitrogen 93 mg/dL (7-20) Creatinine 4.9 mg/dL (0.6-1.0) Estimated GFR (Cockcroft-Gault) 9.2 Glucose Level 232 mg/dL (70-99) Calcium Level 9.1 mg/dL (8.5-10.1) Glucose (Fingerstick) 156 mg/dL (70-99) 98 mg/dL (70-99) 220 mg/dL (70-99) Test 05/01/20 07:44 05/01/20 09:05 Glucose (Fingerstick) 75 mg/dL (70-99) Sodium Level 145 mmol/L (136-145) Potassium Level 3.1 mmol/L (3.5-5.1) Chloride Level 100 mmol/L (98-107) Carbon Dioxide Level 29 mmol/L (21-32) Anion Gap 16 (6-14) Blood Urea Nitrogen 96 mg/dL (7-20) Creatinine 4.6 mg/dL (0.6-1.0) Estimated GFR (Cockcroft-Gault) 9.9 Glucose Level 97 mg/dL (70-99) Calcium Level 9.7 mg/dL (8.5-10.1) Laboratory Tests Test 04/30/20 11:47 04/30/20 16:42 04/30/20 20:37 05/01/20 07:44 Glucose (Fingerstick) 156 mg/dL (70-99) 98 mg/dL (70-99) 220 mg/dL (70-99) 75 mg/dL (70-99) Test 05/01/20 09:05 Sodium Level 145 mmol/L (136-145) Potassium Level 3.1 mmol/L (3.5-5.1) Chloride Level 100 mmol/L (98-107) Carbon Dioxide Level 29 mmol/L (21-32) Anion Gap 16 (6-14) Blood Urea Nitrogen 96 mg/dL (7-20) Creatinine 4.6 mg/dL (0.6-1.0) Estimated GFR (Cockcroft-Gault) 9.9 Glucose Level 97 mg/dL (70-99) Calcium Level 9.7 mg/dL (8.5-10.1) Medications Active Scripts Medications Dose Route/Sig Max Daily Dose Days Date Category Dose Instructions Gabapentin 600 Mg Tablet 600 Mg PO HS 04/27/20 Reported Gabapentin (Gabapentin) 300 Mg Capsule 300 Mg PO DAILY 04/27/20 Reported Lantus Solostar (Insulin Glargine,Hum.rec.anlog) 100 Unit/1 Ml Insuln.pen 75 Unit SQ BID 09/19/19 Reported Januvia (Sitagliptin Phosphate) 25 Mg Tablet 25 Mg PO DAILY 09/19/19 Reported Novolog (Insulin Aspart) 100 Unit/1 Ml Cartridge 0 SQ TIDAC 01/26/19 Reported Sliding scale; patient has printout (at home) of scale. Unknown at this time. Singulair Tablet (Montelukast Sodium) 10 Mg Tablet 10 Mg PO HS 11/24/18 Reported Atorvastatin Calcium 40 Mg Tablet 1 Tab PO QHS 11/24/18 Reported Torsemide 20 Mg Tablet 2 Tab PO BID 11/24/18 Reported Cymbalta (Duloxetine Hcl) 30 Mg Capsule. 1 Cap PO BID 11/24/18 Reported Daily Jalen (Multivitamin) 1 Each Tablet 1 Each PO DAILY 11/24/18 Reported Comments CTA chest IMPRESSION: 1. No evidence of pulmonary thromboembolic disease. 2. Multifocal bilateral groundglass opacities and consolidations, consistent with patient's history of infection. 3. Dilated pulmonary trunk, which can be seen with pulmonary hypertension. Impression . IMPRESSION: 1. Acute hypoxemic respiratory failure secondary to COVID-19 viral pneumonia./ ALI/ARDS 2. COVID-[address] angiogram, no evidence of pulmonary embolism. 4. Chronic kidney disease, on peritoneal dialysis. 5. Morbid obesity. 6. Obstructive sleep apnea. 7. Hyperlipidemia. 8. Hypertension. Plan . PLAN: Continue supplemental oxygen to keep oxygen saturations greater than 92%, gustavo barron on Vapotherm 100%FIO2/ 40 LITRES AND ADDITIONAL O2 Follow chest x-ray/ABG as needed. 04/30 with bilateral infiltrates unchanged Continue steroids with slow taper Continue empiric antibiotics, currently on Rocephin and doxy Continue full course of remdesivir Follow nephrology recommendations in regards to peritoneal dialysis DVT/GI prophylaxis Discussed with RN and RT remains critically ill RAFAL SINHA MD May 01, 2020 11:13
[2020-05-01] MEDS: cefTRIAXone IV Push 1 GM VIAL. IVP SCH (11:56)
[2020-05-01] MEDS ORDERED: DOCUSATE SODIUM 100 MG CAPSULE. PO PRN (12:45)
[2020-05-01] MEDS: DOCUSATE SODIUM 100 MG CAPSULE. PO SCH ×2 (13:32→20:51)
--- NOTE | 2020-05-01 14:22 | PDOC ---
Renal-Progress Notes Subjective Notes Notes FEELING BETTER History of Present Illness Hx of present illness NOW IN ICU ON VAPOTHERM Vitals Vitals Vital Signs Date Time Temp Pulse Resp B/P (MAP) Pulse Ox O2 Delivery O2 Flow Rate FiO2 05/01/20 12:00 98.4 96 158/86 (110) 98 vapotherm/nonrebreather 40.0 98.4 05/01/20 07:10 17 Weight Weight [ ] I.O. Intake and Output Intake and Output 05/01/20 07:00 Intake Total 870 ml Output Total 3315 ml Balance -2445 ml Intake Oral 870 ml Output Urine Total 3315 ml Labs Labs Laboratory Tests Test 04/30/20 16:42 04/30/20 20:37 05/01/20 07:44 05/01/20 09:05 Glucose (Fingerstick) 98 mg/dL (70-99) 220 mg/dL (70-99) 75 mg/dL (70-99) Sodium Level 145 mmol/L (136-145) Potassium Level 3.1 mmol/L (3.5-5.1) Chloride Level 100 mmol/L (98-107) Carbon Dioxide Level 29 mmol/L (21-32) Anion Gap 16 (6-14) Blood Urea Nitrogen 96 mg/dL (7-20) Creatinine 4.6 mg/dL (0.6-1.0) Estimated GFR (Cockcroft-Gault) 9.9 Glucose Level 97 mg/dL (70-99) Calcium Level 9.7 mg/dL (8.5-10.1) Test 05/01/20 11:25 Glucose (Fingerstick) 135 mg/dL (70-99) Micro Micro Microbiology 04/26/20 Blood Culture - Preliminary, Resulted NO GROWTH AFTER 4 DAYS Review of Systems Constitutional: yes: alert, oriented Ears/Nose/Throat: Yes: no symptom reported Eyes: Yes: no symptom reported Pulmonary: Yes dyspnea Cardiovascular: Yes no symptom reported Gastrointestional: Yes: constipation Genitourinary: Yes: no symptom reported Musculoskeletal: Yes: muscle stiffness Skin: Yes no symptom reported Psychiatric/Neurological: Yes: no symptom reported Endocrine: Yes: no symptom reported Physical Exam General Appearance: no apparent distress Skin: warm Respiratory: decreased breath sounds Heart: S1S2 Abdomen: soft Genitourinary: bladder flat Extremities: pulses present Neurology: alert, oriented Musculoskeletal: low back pain, Osteoarthritis Assessment Assessment IMP ESRD ACUTE RESP FAILURE ANEMIA COVID 19 DM II MORBID OBESITY PLAN REPLACED K RESUMED BINDERS CONT WITH APD ID EVAL AND TX D/W DR SINHA CONT BIPAP ON VAPOTHERM INCREASE UF WITH 4.25 AND 2.5 DIANEAL CARTER PEREZ MD May 01, 2020 14:22
[2020-05-01] MEDS: REMDESIVIR 100mg in NORMAL SALINE 250ML X 4 DAYS IV SCH (14:39)
[2020-05-01] MEDS: POTASSIUM CHLORIDE 10MEQ 100 ML IV SCH ×4 (16:03→19:55)
--- NOTE | 2020-05-01 16:04 | NUR ---
SS following up with discharge planning. SS reviewed pt chart and discussed with pt RN. Pt is currently on Vapotherm and non rebreather at 100%. COVID19 positive. Pt on IV Rocephin and IV Remdesivir. Not stable. SS will continue to follow for discharge planning.
[2020-05-01] MEDS: CARVEDILOL 12.5 MG TABLET. PO SCH (17:47)
[2020-05-01] MEDS: GABAPENTIN 300 MG CAPSULE. PO SCH (20:50)
[2020-05-02] VITALS (23 sets, daily range): BP systolic 113–169; BP diastolic 66–98
[2020-05-02] MEDS: HEPARIN for SUB-Q USE 5,000 UNIT/ML VIAL. SQ SCH ×3 (05:50→22:22)
--- NOTE | 2020-05-02 07:31 | PDOC ---
Infectious Disease Note Subjective: Subjective Patient remains on Vapotherm/NRB Feels better this a.m. Vital Signs: Vital Signs Vital Signs Date Time Temp Pulse Resp B/P (MAP) Pulse Ox O2 Delivery O2 Flow Rate FiO2 05/02/20 06:00 89 19 144/81 (102) 93 vapotherm/nonrebreather 40.0 05/02/20 04:00 97.9 97.9 Physical Exam: PHYSICAL EXAM GENERAL: Patient on BiPAP, arousable HEENT: Normocephalic, atraumatic. Anicteric. No thrush. NECK: Supple, no JVD. LUNGS: Decreased breath sounds. No wheezing. HEART: S1, S2. No gallops or murmurs. ABDOMEN: Soft bowel sounds present nontender nondistended EXTREMITIES: No edema, no cyanosis. DERMATOLOGIC: Warm, dry. No generalized rash. NEUROLOGIC: Sleepy but arousable, Medications: Inpatient Meds: Current Medications Medications (Trade) Dose Ordered Sig/Mya Start Time Stop Time Status Last Admin Dose Admin Acetaminophen (Tylenol) 650 mg PRN Q4HRS PRN 04/27/20 23:15 05/01/20 19:49 650 MG Ascorbic Acid (Vitamin C) 1,000 mg DAILY 04/28/20 13:00 04/30/20 08:57 DC 04/30/20 08:11 1,000 MG Atorvastatin Calcium (Lipitor) 40 mg QHS 04/27/20 21:00 04/30/20 08:57 DC 04/29/20 19:57 40 MG Azithromycin 250 ml @ 250 mls/hr 1X ONCE 04/26/20 23:00 04/26/20 23:59 DC 04/26/20 23:18 250 MLS/HR Carvedilol (Coreg) 25 mg BIDWMEALS 05/01/20 17:00 05/01/20 17:47 25 MG Ceftriaxone Sodium (Rocephin) 1 gm Q24H 04/28/20 13:00 05/01/20 11:56 1 GM Cyclobenzaprine HCl (Flexeril) 10 mg PRN QID PRN 04/28/20 21:00 05/01/20 00:02 10 MG Dexamethasone (Decadron) 6 mg 1X ONCE 04/28/20 13:00 04/28/20 13:01 DC 04/28/20 12:34 6 MG Dextrose (Dextrose 50%-Water Syringe) 12.5 gm PRN Q15MIN PRN 04/27/20 04:00 Docusate Sodium (Colace) 100 mg BID 05/01/20 12:45 05/01/20 20:51 100 MG Doxycycline Hyclate (Vibra-Tab) 100 mg BID 04/28/20 13:00 05/01/20 20:50 100 MG Duloxetine HCl (Cymbalta) 30 mg BID 04/27/20 09:00 05/01/20 20:51 30 MG Enoxaparin Sodium (Lovenox 30mg Syringe) 30 mg Q24H 04/28/20 13:00 04/28/20 12:38 DC Gabapentin (Neurontin) 600 mg QHS 04/27/20 04:30 05/01/20 20:50 600 MG Heparin Sodium (Porcine) (Heparin Sodium) 5,000 unit Q8HRS 04/28/20 14:00 05/02/20 05:50 5,000 UNIT Info (CONTRAST GIVEN -- Rx MONITORING) 1 each PRN DAILY PRN 04/26/20 20:45 04/28/20 20:44 DC Insulin Glargine (Lantus Syringe) 75 unit BID 05/01/20 09:00 05/01/20 20:52 75 UNIT Insulin Human Lispro (HumaLOG) 30 units TIDWMEALS 04/29/20 12:00 05/01/20 17:56 30 UNITS Iohexol (Omnipaque 350 Mg/ml) 100 ml 1X ONCE 04/26/20 20:45 04/26/20 20:46 DC 04/26/20 21:20 100 ML Lactobacillus Rhamnosus (Culturelle) 1 cap BID 04/29/20 21:00 05/01/20 20:50 1 CAP Linagliptin (Tradjenta) 5 mg DAILY 04/27/20 09:00 05/01/20 08:50 5 MG Montelukast Sodium (Singulair) 10 mg HS 04/27/20 21:00 04/30/20 08:57 DC 04/29/20 19:57 10 MG Multivitamins (Thera M Plus) 1 tab DAILY 04/27/20 09:00 05/01/20 08:50 1 TAB Non-Formulary Medication (Gabapentin ) 600 mg HS 04/27/20 21:00 UNV Ondansetron HCl (Zofran Odt) 4 mg PRN Q6HRS PRN 04/28/20 12:15 04/28/20 12:34 4 MG Ondansetron HCl (Zofran) 4 mg PRN Q8HRS PRN 04/26/20 22:45 04/27/20 22:44 DC Potassium Chloride/Water 100 ml @ 100 mls/hr Q1H 05/01/20 15:00 05/01/20 18:59 DC 05/01/20 19:55 100 MLS/HR Potassium Chloride (Klor-Con) 20 meq [id number] 05/02/20 08:00 Remdesivir 100 mg/ Sodium Chloride 230 ml @ 460 mls/hr Q24H 04/29/20 14:00 05/02/20 14:29 05/01/20 14:39 460 MLS/HR Remdesivir 200 mg/ Sodium Chloride 210 ml @ 210 mls/hr 1X ONCE 04/28/20 14:00 04/28/20 14:59 DC 04/28/20 15:39 210 MLS/HR Sevelamer Carbonate (Renvela) 800 mg TIDWMEALS 04/29/20 17:00 05/01/20 17:47 800 MG Sodium Chloride 1,000 ml @ 1,000 mls/hr 1X ONCE 04/26/20 19:15 04/26/20 20:14 DC 04/26/20 19:17 1,000 MLS/HR Sterile Water (WATER for RESP) 1,000 ml CONT PRN 04/30/20 20:30 05/01/20 23:09 1,000 ML Temazepam (Restoril) 15 mg PRN QHS PRN 04/28/20 21:00 04/29/20 06:48 DC 04/28/20 22:48 15 MG Torsemide (Demadex) 40 mg [id number] 04/27/20 09:00 05/01/20 16:03 40 MG Vitamin B Complex/ Vitamin C (Kelly-Jalen) 1 tab DAILY 04/29/20 14:00 05/01/20 08:50 1 TAB Vitamin D (Vitamin D3) 500 unit DAILY 04/28/20 13:00 04/30/20 08:57 DC 04/30/20 08:10 500 UNIT Zinc Sulfate (Orazinc) 220 mg DAILY 04/28/20 13:00 05/01/20 08:50 220 MG Labs: Lab Laboratory Tests Test 05/01/20 07:44 05/01/20 09:05 05/01/20 11:25 05/01/20 16:31 Glucose (Fingerstick) 75 mg/dL (70-99) 135 mg/dL (70-99) 204 mg/dL (70-99) Sodium Level 145 mmol/L (136-145) Potassium Level 3.1 mmol/L (3.5-5.1) Chloride Level 100 mmol/L (98-107) Carbon Dioxide Level 29 mmol/L (21-32) Anion Gap 16 (6-14) Blood Urea Nitrogen 96 mg/dL (7-20) Creatinine 4.6 mg/dL (0.6-1.0) Estimated GFR (Cockcroft-Gault) 9.9 Glucose Level 97 mg/dL (70-99) Calcium Level 9.7 mg/dL (8.5-10.1) Test 05/01/20 20:56 Glucose (Fingerstick) 402 mg/dL (70-99) Objective: Assessment: 1. COVID-19 infection. 2. Acute hypoxic respiratory failure due to COVID-19 viral pneumonia. 3. Chronic kidney disease, on peritoneal dialysis. 4. Diabetes mellitus. 5. Morbid obesity. 6. History of obstructive sleep apnea. 7. Hyperlipidemia, hypertension. Plan: Plan of Care 1. Continue remdesivir 2. Continue steroids. 3. Continue ceftriaxone and doxycycline.04/28 4. Continue supportive care. 5. Maintain aspiration precaution. 6. Monitor labs and cultures. STANTON ALBERT MD May 02, 2020 07:31
--- NOTE | 2020-05-02 08:30 | PDOC ---
Provider Note Date of Service: DATE: 05/02/20 TIME: 08:26 Provider Note vss, no temp, still high flow O2 needed- glucose up some on less lantus so will increase while on decadron- keep rest same Justifications for Admission Other Justification VERNA GARCIA MD May 02, 2020 08:30
[2020-05-02] MEDS: DULoxetine HCL 30 MG CAPSULE.DR PO SCH ×2 (08:36→20:55)
[2020-05-02] MEDS: ZINC SULFATE 220 MG CAPSULE. PO SCH (08:36)
[2020-05-02] MEDS: LINAGLIPTIN 5 MG TABLET PO SCH (08:36)
[2020-05-02] MEDS: DOCUSATE SODIUM 100 MG CAPSULE. PO SCH ×2 (08:36→20:55)
[2020-05-02] MEDS: DEXAMETHASONE 4 MG TABLET PO SCH (08:36)
[2020-05-02] MEDS: FOLIC/VIT B COMP W-C (RENAL) TABLET. PO SCH (08:37)
[2020-05-02] MEDS: CARVEDILOL 12.5 MG TABLET. PO SCH ×2 (08:37→16:52)
[2020-05-02] MEDS: SEVELAMER CARBONATE 800 MG TABLET. PO SCH ×3 (08:37→16:53)
[2020-05-02] MEDS: LACTOBACILLUS RHAMNOSUS GG 1 CAPSULE. PO SCH ×2 (08:37→20:55)
[2020-05-02] MEDS: TORSEMIDE 20 MG TABLET. PO SCH ×2 (08:37→16:53)
[2020-05-02] MEDS: MULTIVITAMIN with MINERAL TABLET. PO SCH (08:37)
[2020-05-02] MEDS: DOXYCYCLINE HYCLATE 100 MG TABLET PO SCH ×2 (08:37→20:55)
[2020-05-02] MEDS: POTASSIUM CHLORIDE 20 MEQ TABLET.ER. PO SCH (08:47)
[2020-05-02] MEDS: INSULIN LISPRO 300 UNITS/3 ML VIAL. SQ SCH ×3 (08:48→17:00)
[2020-05-02] MEDS: INSULIN GLARGINE SYRINGE. SQ SCH ×2 (08:49→21:11)
[2020-05-02] MEDS: PANTOPRAZOLE IV PUSH 40 MG VIAL. IVP SCH (08:54)
[2020-05-02 09:31] LABS: CALCIUM 9.3 mg/dL (8.5-10.1); CREATININE 4.3 mg/dL (0.6-1.0); GFR 10.7; MAGNESIUM 2.4 mg/dL (1.8-2.4); PHOSPHORUS 5.5 mg/dL (2.6-4.7); POTASSIUM 3.2 mmol/L (3.5-5.1)
--- NOTE | 2020-05-02 10:35 | PDOC ---
Renal-Progress Notes Subjective Notes Notes LESS SOB History of Present Illness Hx of present illness IMPROVING Vitals Vitals Vital Signs Date Time Temp Pulse Resp B/P (MAP) Pulse Ox O2 Delivery O2 Flow Rate FiO2 05/02/20 09:00 100 26 124/98 (107) 93 vapotherm/nonrebreather 40.0 05/02/20 08:00 98.7 98.7 Weight Weight [ ] I.O. Intake and Output Intake and Output 05/02/20 07:00 Intake Total 4160 ml Output Total 1575 ml Balance 2585 ml Intake Oral 3860 ml IV Total 300 ml Output Urine Total 1575 ml Labs Labs Laboratory Tests Test 05/01/20 11:25 05/01/20 16:31 05/01/20 20:56 05/02/20 08:05 Glucose (Fingerstick) 135 mg/dL (70-99) 204 mg/dL (70-99) 402 mg/dL (70-99) Sodium Level 140 mmol/L (136-145) Potassium Level 3.2 mmol/L (3.5-5.1) Chloride Level 99 mmol/L (98-107) Carbon Dioxide Level 25 mmol/L (21-32) Anion Gap 16 (6-14) Blood Urea Nitrogen 104 mg/dL (7-20) Creatinine 4.3 mg/dL (0.6-1.0) Estimated GFR (Cockcroft-Gault) 10.7 Glucose Level 183 mg/dL (70-99) Calcium Level 9.3 mg/dL (8.5-10.1) Phosphorus Level 5.5 mg/dL (2.6-4.7) Magnesium Level 2.4 mg/dL (1.8-2.4) Test 05/02/20 08:42 Glucose (Fingerstick) 180 mg/dL (70-99) Micro Micro Microbiology 04/26/20 Blood Culture - Final, Complete NO GROWTH AFTER 5 DAYS Review of Systems Constitutional: yes: alert, oriented Ears/Nose/Throat: Yes: no symptom reported Eyes: Yes: no symptom reported Pulmonary: Yes dyspnea Cardiovascular: Yes no symptom reported Gastrointestional: Yes: constipation Genitourinary: Yes: no symptom reported Musculoskeletal: Yes: muscle stiffness Skin: Yes no symptom reported Psychiatric/Neurological: Yes: no symptom reported Endocrine: Yes: no symptom reported Physical Exam General Appearance: no apparent distress Skin: warm Respiratory: decreased breath sounds Heart: S1S2 Abdomen: soft Genitourinary: bladder flat Extremities: pulses present Neurology: alert, oriented Musculoskeletal: low back pain, Osteoarthritis Assessment Assessment IMP ESRD ACUTE RESP FAILURE ANEMIA COVID 19 DM II MORBID OBESITY PLAN REPLACE K CONT WITH APD ID EVAL AND TX CONT BIPAP ON VAPOTHERM CONT WITH 4.25 AND 2.5 DIANEAL CARTER PEREZ MD May 02, 2020 10:35
[2020-05-02] MEDS: STERILE WATER for RESP 1,000 ML BAG. INH PRN (11:15)
--- NOTE | 2020-05-02 11:35 | PDOC ---
PULMONARY PROGRESS NOTES DATE: 05/02/20 TIME: 11:33 Subjective remains, on vapotherm/ NRM no soa Vitals Vital Signs Date Time Temp Pulse Resp B/P (MAP) Pulse Ox O2 Delivery O2 Flow Rate FiO2 05/02/20 11:10 94 VAPOTHERM 40.0 05/02/20 09:00 100 26 124/98 (107) 05/02/20 08:00 98.7 98.7 Comments Patient is seen during , visual exam performed on vapotherm No accessory muscle use no distress No obvious rash or edema General: Alert, No acute distress Labs Laboratory Tests Test 04/30/20 11:47 04/30/20 16:42 04/30/20 20:37 05/01/20 07:44 Glucose (Fingerstick) 156 mg/dL (70-99) 98 mg/dL (70-99) 220 mg/dL (70-99) 75 mg/dL (70-99) Test 05/01/20 09:05 05/01/20 11:25 05/01/20 16:31 05/01/20 20:56 Sodium Level 145 mmol/L (136-145) Potassium Level 3.1 mmol/L (3.5-5.1) Chloride Level 100 mmol/L (98-107) Carbon Dioxide Level 29 mmol/L (21-32) Anion Gap 16 (6-14) Blood Urea Nitrogen 96 mg/dL (7-20) Creatinine 4.6 mg/dL (0.6-1.0) Estimated GFR (Cockcroft-Gault) 9.9 Glucose Level 97 mg/dL (70-99) Calcium Level 9.7 mg/dL (8.5-10.1) Glucose (Fingerstick) 135 mg/dL (70-99) 204 mg/dL (70-99) 402 mg/dL (70-99) Test 05/02/20 08:05 05/02/20 08:42 Sodium Level 140 mmol/L (136-145) Potassium Level 3.2 mmol/L (3.5-5.1) Chloride Level 99 mmol/L (98-107) Carbon Dioxide Level 25 mmol/L (21-32) Anion Gap 16 (6-14) Blood Urea Nitrogen 104 mg/dL (7-20) Creatinine 4.3 mg/dL (0.6-1.0) Estimated GFR (Cockcroft-Gault) 10.7 Glucose Level 183 mg/dL (70-99) Calcium Level 9.3 mg/dL (8.5-10.1) Phosphorus Level 5.5 mg/dL (2.6-4.7) Magnesium Level 2.4 mg/dL (1.8-2.4) Glucose (Fingerstick) 180 mg/dL (70-99) Laboratory Tests Test 05/01/20 16:31 05/01/20 20:56 05/02/20 08:05 05/02/20 08:42 Glucose (Fingerstick) 204 mg/dL (70-99) 402 mg/dL (70-99) 180 mg/dL (70-99) Sodium Level 140 mmol/L (136-145) Potassium Level 3.2 mmol/L (3.5-5.1) Chloride Level 99 mmol/L (98-107) Carbon Dioxide Level 25 mmol/L (21-32) Anion Gap 16 (6-14) Blood Urea Nitrogen 104 mg/dL (7-20) Creatinine 4.3 mg/dL (0.6-1.0) Estimated GFR (Cockcroft-Gault) 10.7 Glucose Level 183 mg/dL (70-99) Calcium Level 9.3 mg/dL (8.5-10.1) Phosphorus Level 5.5 mg/dL (2.6-4.7) Magnesium Level 2.4 mg/dL (1.8-2.4) Medications Active Scripts Medications Dose Route/Sig Max Daily Dose Days Date Category Dose Instructions Gabapentin 600 Mg Tablet 600 Mg PO HS 04/27/20 Reported Gabapentin (Gabapentin) 300 Mg Capsule 300 Mg PO DAILY 04/27/20 Reported Lantus Solostar (Insulin Glargine,Hum.rec.anlog) 100 Unit/1 Ml Insuln.pen 75 Unit SQ BID 09/19/19 Reported Januvia (Sitagliptin Phosphate) 25 Mg Tablet 25 Mg PO DAILY 09/19/19 Reported Novolog (Insulin Aspart) 100 Unit/1 Ml Cartridge 0 SQ TIDAC 01/26/19 Reported Sliding scale; patient has printout (at home) of scale. Unknown at this time. Singulair Tablet (Montelukast Sodium) 10 Mg Tablet 10 Mg PO HS 11/24/18 Reported Atorvastatin Calcium 40 Mg Tablet 1 Tab PO QHS 11/24/18 Reported Torsemide 20 Mg Tablet 2 Tab PO BID 11/24/18 Reported Cymbalta (Duloxetine Hcl) 30 Mg Capsule. 1 Cap PO BID 11/24/18 Reported Daily Jalen (Multivitamin) 1 Each Tablet 1 Each PO DAILY 11/24/18 Reported Comments CTA chest IMPRESSION: 1. No evidence of pulmonary thromboembolic disease. 2. Multifocal bilateral groundglass opacities and consolidations, consistent with patient's history of infection. 3. Dilated pulmonary trunk, which can be seen with pulmonary hypertension. Impression . IMPRESSION: 1. Acute hypoxemic respiratory failure secondary to COVID-19 viral pneumonia./ ALI/ARDS 2. COVID-[address] angiogram, no evidence of pulmonary embolism. 4. Chronic kidney disease, on peritoneal dialysis. 5. Morbid obesity. 6. Obstructive sleep apnea. 7. Hyperlipidemia. 8. Hypertension. Plan . PLAN: Continue supplemental oxygen to keep oxygen saturations greater than 92%, currently on Vapotherm 100%FIO2/ 40 LITRES AND ADDITIONAL O2 Follow chest x-ray/ABG as needed. 04/30 with bilateral infiltrates unchanged Continue steroids with slow taper Continue empiric antibiotics, currently on Rocephin and doxy Continue full course of remdesivir Follow nephrology recommendations in regards to peritoneal dialysis DVT/GI prophylaxis Discussed with RN and RT remains critically ill RAFAL SINHA MD May 02, 2020 11:35
[2020-05-02] MEDS: cefTRIAXone IV Push 1 GM VIAL. IVP SCH (12:20)
[2020-05-02] MEDS ORDERED: SEVE800T8 PO (12:42)
[2020-05-02] MEDS: REMDESIVIR 100mg in NORMAL SALINE 250ML X 4 DAYS IV SCH (14:27)
--- NOTE | 2020-05-02 17:28 | NUR ---
Evening dose of insulin held because blood sugar 62 and patient not eating well
[2020-05-02] MEDS: GABAPENTIN 300 MG CAPSULE. PO SCH (20:55)
[2020-05-02] MEDS: ACETAMINOPHEN 325 MG TABLET. PO PRN (21:13)
[2020-05-03] VITALS (24 sets, daily range): BP systolic 104–200; BP diastolic 58–113
[2020-05-03] MEDS: STERILE WATER for RESP 1,000 ML BAG. INH PRN (00:10)
[2020-05-03] MEDS: HEPARIN for SUB-Q USE 5,000 UNIT/ML VIAL. SQ SCH ×3 (05:36→21:29)
--- NOTE | 2020-05-03 08:24 | PDOC ---
Infectious Disease Note Subjective: Subjective Patient remains on Vapotherm Feels better this a.m. Vital Signs: Vital Signs Vital Signs Date Time Temp Pulse Resp B/P (MAP) Pulse Ox O2 Delivery O2 Flow Rate FiO2 05/03/20 08:00 98 VAPOTHERM 40.0 05/03/20 06:01 98.9 88 22 160/80 (106) 98.9 Physical Exam: PHYSICAL EXAM GENERAL: Patient on BiPAP, arousable HEENT: Normocephalic, atraumatic. Anicteric. No thrush. NECK: Supple, no JVD. LUNGS: Decreased breath sounds. No wheezing. HEART: S1, S2. No gallops or murmurs. ABDOMEN: Soft bowel sounds present nontender nondistended EXTREMITIES: No edema, no cyanosis. DERMATOLOGIC: Warm, dry. No generalized rash. NEUROLOGIC: Sleepy but arousable, Medications: Inpatient Meds: Current Medications Medications (Trade) Dose Ordered Sig/Mya Start Time Stop Time Status Last Admin Dose Admin Acetaminophen (Tylenol) 650 mg PRN Q4HRS PRN 04/27/20 23:15 05/02/20 21:13 650 MG Ascorbic Acid (Vitamin C) 1,000 mg DAILY 04/28/20 13:00 04/30/20 08:57 DC 04/30/20 08:11 1,000 MG Atorvastatin Calcium (Lipitor) 40 mg QHS 04/27/20 21:00 04/30/20 08:57 DC 04/29/20 19:57 40 MG Azithromycin 250 ml @ 250 mls/hr 1X ONCE 04/26/20 23:00 04/26/20 23:59 DC 04/26/20 23:18 250 MLS/HR Carvedilol (Coreg) 25 mg BIDWMEALS 05/01/20 17:00 05/02/20 16:52 25 MG Ceftriaxone Sodium (Rocephin) 1 gm Q24H 04/28/20 13:00 05/02/20 12:20 1 GM Cyclobenzaprine HCl (Flexeril) 10 mg PRN QID PRN 04/28/20 21:00 05/01/20 00:02 10 MG Dexamethasone (Decadron) 6 mg 1X ONCE 04/28/20 13:00 04/28/20 13:01 DC 04/28/20 12:34 6 MG Dextrose (Dextrose 50%-Water Syringe) 12.5 gm PRN Q15MIN PRN 04/27/20 04:00 Docusate Sodium (Colace) 100 mg BID 05/01/20 12:45 05/02/20 20:55 100 MG Doxycycline Hyclate (Vibra-Tab) 100 mg BID 04/28/20 13:00 05/02/20 20:55 100 MG Duloxetine HCl (Cymbalta) 30 mg BID 04/27/20 09:00 05/02/20 20:55 30 MG Enoxaparin Sodium (Lovenox 30mg Syringe) 30 mg Q24H 04/28/20 13:00 04/28/20 12:38 DC Gabapentin (Neurontin) 600 mg QHS 04/27/20 04:30 05/02/20 20:55 600 MG Heparin Sodium (Porcine) (Heparin Sodium) 5,000 unit Q8HRS 04/28/20 14:00 05/03/20 05:36 5,000 UNIT Info (CONTRAST GIVEN -- Rx MONITORING) 1 each PRN DAILY PRN 04/26/20 20:45 04/28/20 20:44 DC Insulin Glargine (Lantus Syringe) 80 unit BID 05/02/20 09:00 05/02/20 21:11 80 UNIT Insulin Human Lispro (HumaLOG) 30 units TIDWMEALS 04/29/20 12:00 05/02/20 12:03 30 UNITS Iohexol (Omnipaque 350 Mg/ml) 100 ml 1X ONCE 04/26/20 20:45 04/26/20 20:46 DC 04/26/20 21:20 100 ML Lactobacillus Rhamnosus (Culturelle) 1 cap BID 04/29/20 21:00 05/02/20 20:55 1 CAP Linagliptin (Tradjenta) 5 mg DAILY 04/27/20 09:00 05/02/20 08:36 5 MG Montelukast Sodium (Singulair) 10 mg HS 04/27/20 21:00 04/30/20 08:57 DC 04/29/20 19:57 10 MG Multivitamins (Thera M Plus) 1 tab DAILY 04/27/20 09:00 05/02/20 08:37 1 TAB Non-Formulary Medication (Gabapentin ) 600 mg HS 04/27/20 21:00 UNV Ondansetron HCl (Zofran Odt) 4 mg PRN Q6HRS PRN 04/28/20 12:15 04/28/20 12:34 4 MG Ondansetron HCl (Zofran) 4 mg PRN Q8HRS PRN 04/26/20 22:45 04/27/20 22:44 DC Pantoprazole Sodium (PROTONIX VIAL for IV PUSH) 40 mg DAILY 05/02/20 09:00 05/02/20 08:54 40 MG Potassium Chloride/Water 100 ml @ 100 mls/hr Q1H 05/01/20 15:00 05/01/20 18:59 DC 05/01/20 19:55 100 MLS/HR Potassium Chloride (Klor-Con) 20 meq [id number] 05/02/20 08:00 05/02/20 08:47 20 MEQ Remdesivir 100 mg/ Sodium Chloride 230 ml @ 460 mls/hr Q24H 04/29/20 14:00 05/02/20 14:29 DC 05/02/20 14:27 460 MLS/HR Remdesivir 200 mg/ Sodium Chloride 210 ml @ 210 mls/hr 1X ONCE 04/28/20 14:00 04/28/20 14:59 DC 04/28/20 15:39 210 MLS/HR Sevelamer Carbonate (Renvela) 1,600 mg TIDWMEALS 05/02/20 17:00 05/02/20 16:53 1,600 MG Sodium Chloride 1,000 ml @ 1,000 mls/hr 1X ONCE 04/26/20 19:15 04/26/20 20:14 DC 04/26/20 19:17 1,000 MLS/HR Sterile Water (WATER for RESP) 1,000 ml CONT PRN 04/30/20 20:30 05/03/20 00:10 1,000 ML Temazepam (Restoril) 15 mg PRN QHS PRN 04/28/20 21:00 04/29/20 06:48 DC 04/28/20 22:48 15 MG Torsemide (Demadex) 40 mg [id number] 04/27/20 09:00 05/02/20 16:53 40 MG Vitamin B Complex/ Vitamin C (Kelly-Jalen) 1 tab DAILY 04/29/20 14:00 05/02/20 08:37 1 TAB Vitamin D (Vitamin D3) 500 unit DAILY 04/28/20 13:00 04/30/20 08:57 DC 04/30/20 08:10 500 UNIT Zinc Sulfate (Orazinc) 220 mg DAILY 04/28/20 13:00 05/02/20 08:36 220 MG Labs: Lab Laboratory Tests Test 05/02/20 08:42 05/02/20 11:53 05/02/20 17:17 05/02/20 20:59 Glucose (Fingerstick) 180 mg/dL (70-99) 107 mg/dL (70-99) 63 mg/dL (70-99) 249 mg/dL (70-99) Objective: Assessment: 1. COVID-19 infection. 2. Acute hypoxic respiratory failure due to COVID-19 viral pneumonia. 3. Chronic kidney disease, on peritoneal dialysis. 4. Diabetes mellitus. 5. Morbid obesity. 6. History of obstructive sleep apnea. 7. Hyperlipidemia, hypertension. Plan: Plan of Care Continue supportive care Status post remdesivir On steroids. DC ceftriaxone and doxycycline. Continue supportive care. STANTON ALBERT MD May 03, 2020 08:24
[2020-05-03] MEDS: FOLIC/VIT B COMP W-C (RENAL) TABLET. PO SCH (08:35)
[2020-05-03] MEDS: DOCUSATE SODIUM 100 MG CAPSULE. PO SCH ×2 (08:35→21:00)
[2020-05-03] MEDS: LACTOBACILLUS RHAMNOSUS GG 1 CAPSULE. PO SCH ×2 (08:36→21:28)
[2020-05-03] MEDS: DOXYCYCLINE HYCLATE 100 MG TABLET PO SCH (08:36)
[2020-05-03] MEDS: DULoxetine HCL 30 MG CAPSULE.DR PO SCH ×2 (08:36→21:28)
[2020-05-03] MEDS: ZINC SULFATE 220 MG CAPSULE. PO SCH (08:36)
[2020-05-03] MEDS: SEVELAMER CARBONATE 800 MG TABLET. PO SCH ×3 (08:36→18:17)
[2020-05-03] MEDS: LINAGLIPTIN 5 MG TABLET PO SCH (08:36)
[2020-05-03] MEDS: DEXAMETHASONE 4 MG TABLET PO SCH (08:37)
[2020-05-03] MEDS: POTASSIUM CHLORIDE 20 MEQ TABLET.ER. PO SCH (08:39)
[2020-05-03] MEDS: TORSEMIDE 20 MG TABLET. PO SCH ×2 (08:39→15:33)
[2020-05-03] MEDS: MULTIVITAMIN with MINERAL TABLET. PO SCH (08:39)
[2020-05-03] MEDS: PANTOPRAZOLE IV PUSH 40 MG VIAL. IVP SCH (08:39)
[2020-05-03] MEDS: CARVEDILOL 12.5 MG TABLET. PO SCH ×2 (08:44→18:22)
[2020-05-03] MEDS: INSULIN GLARGINE SYRINGE. SQ SCH (09:14)
[2020-05-03] MEDS: INSULIN LISPRO 300 UNITS/3 ML VIAL. SQ SCH ×3 (09:14→17:00)
--- NOTE | 2020-05-03 10:08 | PDOC ---
PULMONARY PROGRESS NOTES DATE: 05/03/20 TIME: 10:06 Subjective Pt. is now on vapotherm only at 40 liters and 70% afebrile no SOA No overnight concerns from nursing Vitals Vital Signs Date Time Temp Pulse Resp B/P (MAP) Pulse Ox O2 Delivery O2 Flow Rate FiO2 05/03/20 08:44 88 176/79 05/03/20 08:00 98 VAPOTHERM 40.0 05/03/20 06:01 98.9 22 98.9 Comments Patient is seen during pandemic, visual exam performed on vapotherm No accessory muscle use no distress No obvious rash or edema General: Alert, No acute distress Labs Laboratory Tests Test 05/01/20 11:25 05/01/20 16:31 05/01/20 20:56 05/02/20 08:05 Glucose (Fingerstick) 135 mg/dL (70-99) 204 mg/dL (70-99) 402 mg/dL (70-99) Sodium Level 140 mmol/L (136-145) Potassium Level 3.2 mmol/L (3.5-5.1) Chloride Level 99 mmol/L (98-107) Carbon Dioxide Level 25 mmol/L (21-32) Anion Gap 16 (6-14) Blood Urea Nitrogen 104 mg/dL (7-20) Creatinine 4.3 mg/dL (0.6-1.0) Estimated GFR (Cockcroft-Gault) 10.7 Glucose Level 183 mg/dL (70-99) Calcium Level 9.3 mg/dL (8.5-10.1) Phosphorus Level 5.5 mg/dL (2.6-4.7) Magnesium Level 2.4 mg/dL (1.8-2.4) Test 05/02/20 08:42 05/02/20 11:53 05/02/20 17:17 05/02/20 20:59 Glucose (Fingerstick) 180 mg/dL (70-99) 107 mg/dL (70-99) 63 mg/dL (70-99) 249 mg/dL (70-99) Laboratory Tests Test 05/02/20 11:53 05/02/20 17:17 05/02/20 20:59 Glucose (Fingerstick) 107 mg/dL (70-99) 63 mg/dL (70-99) 249 mg/dL (70-99) Medications Active Scripts Medications Dose Route/Sig Max Daily Dose Days Date Category Dose Instructions Gabapentin 600 Mg Tablet 600 Mg PO HS 04/27/20 Reported Gabapentin (Gabapentin) 300 Mg Capsule 300 Mg PO DAILY 04/27/20 Reported Lantus Solostar (Insulin Glargine,Hum.rec.anlog) 100 Unit/1 Ml Insuln.pen 75 Unit SQ BID 09/19/19 Reported Januvia (Sitagliptin Phosphate) 25 Mg Tablet 25 Mg PO DAILY 09/19/19 Reported Novolog (Insulin Aspart) 100 Unit/1 Ml Cartridge 0 SQ TIDAC 01/26/19 Reported Sliding scale; patient has printout (at home) of scale. Unknown at this time. Singulair Tablet (Montelukast Sodium) 10 Mg Tablet 10 Mg PO HS 11/24/18 Reported Atorvastatin Calcium 40 Mg Tablet 1 Tab PO QHS 11/24/18 Reported Torsemide 20 Mg Tablet 2 Tab PO BID 11/24/18 Reported Cymbalta (Duloxetine Hcl) 30 Mg Capsule.dr 1 Cap PO BID 11/24/18 Reported Daily Jalen (Multivitamin) 1 Each Tablet 1 Each PO DAILY 11/24/18 Reported Comments CTA chest IMPRESSION: 1. No evidence of pulmonary thromboembolic disease. 2. Multifocal bilateral groundglass opacities and consolidations, consistent with patient's history of infection. 3. Dilated pulmonary trunk, which can be seen with pulmonary hypertension. Impression . IMPRESSION: 1. Acute hypoxemic respiratory failure secondary to COVID-19 viral pneumonia./ ALI/ARDS 2. COVID-[address] angiogram, no evidence of pulmonary embolism. 4. Chronic kidney disease, on peritoneal dialysis. 5. Morbid obesity. 6. Obstructive sleep apnea. 7. Hyperlipidemia. 8. Hypertension. Plan . PLAN: Continue supplemental oxygen to keep oxygen saturations greater than 92%, currently on Vapotherm 70% and 40 liters Follow chest x-ray/ABG as needed. 04/30 with bilateral infiltrates unchanged Continue steroids with slow taper Follow ID recs for ABX, currently off ABX Completed Full course of remdesivir Follow nephrology recommendations in regards to peritoneal dialysis HTN per [facility] DVT/GI prophylaxis Discussed with RN and RT remains critically ill 30 minutes critical care time RAFAL SINHA MD May 03, 2020 10:08
--- NOTE | 2020-05-03 12:33 | PDOC ---
Provider Note Date of Service: DATE: 05/03/20 TIME: 12:32 Provider Note glucose better on cureent insulin, reduce as lower decadron Justifications for Admission Other Justification VERNA GARCIA MD May 03, 2020 12:33
[2020-05-03] MEDS ORDERED: LACTULOSE 20 GM/30 ML SOLUTION. PO ONE (13:45)
--- NOTE | 2020-05-03 13:47 | PDOC ---
Renal-Progress Notes Subjective Notes Notes NONE History of Present Illness Hx of present illness STABLE Vitals Vitals Vital Signs Date Time Temp Pulse Resp B/P (MAP) Pulse Ox O2 Delivery O2 Flow Rate FiO2 05/03/20 11:24 94 VAPOTHERM 40.0 05/03/20 08:44 88 176/79 05/03/20 06:01 98.9 22 98.9 Weight Weight [ ] I.O. Intake and Output Intake and Output 05/03/20 07:00 Intake Total 590 ml Output Total 1190 ml Balance -600 ml Intake Oral 360 ml IV Total 230 ml Output Urine Total 1190 ml Labs Labs Laboratory Tests Test 05/02/20 17:17 05/02/20 20:59 05/03/20 08:53 05/03/20 11:07 Glucose (Fingerstick) 63 mg/dL (70-99) 249 mg/dL (70-99) 174 mg/dL (70-99) 170 mg/dL (70-99) Micro Micro Microbiology 04/26/20 Blood Culture - Final, Complete NO GROWTH AFTER 5 DAYS Review of Systems Constitutional: yes: alert, oriented Ears/Nose/Throat: Yes: no symptom reported Eyes: Yes: no symptom reported Pulmonary: Yes dyspnea Cardiovascular: Yes no symptom reported Gastrointestional: Yes: constipation Genitourinary: Yes: no symptom reported Musculoskeletal: Yes: muscle stiffness Skin: Yes no symptom reported Psychiatric/Neurological: Yes: no symptom reported Endocrine: Yes: no symptom reported Physical Exam General Appearance: no apparent distress Skin: warm Respiratory: decreased breath sounds Heart: S1S2 Abdomen: soft Genitourinary: bladder flat Extremities: pulses present Neurology: alert, oriented Musculoskeletal: low back pain, Osteoarthritis Assessment Assessment IMP ESRD ACUTE RESP FAILURE ANEMIA COVID 19 DM II MORBID OBESITY CONSTIPATION PLAN CONT WITH APD ID EVAL AND TX CONT BIPAP ON VAPOTHERM USE ALL 4.25% DIANEAL LACTULOSE CARTER PEREZ MD May 03, 2020 13:47
[2020-05-03] MEDS: GABAPENTIN 300 MG CAPSULE. PO SCH (21:28)
[2020-05-04] VITALS (23 sets, daily range): BP systolic 88–160; BP diastolic 60–101
[2020-05-04] MEDS: STERILE WATER for RESP 1,000 ML BAG. INH PRN (00:46)
[2020-05-04] MEDS ORDERED: INSULIN GLARGINE SYRINGE. SQ ONE (01:15)
[2020-05-04 06:13] LABS: CREATININE 4.5 mg/dL (0.6-1.0); GFR 10.1; POTASSIUM 3.4 mmol/L (3.5-5.1)
[2020-05-04] MEDS: HEPARIN for SUB-Q USE 5,000 UNIT/ML VIAL. SQ SCH ×3 (06:22→22:03)
[2020-05-04] MEDS: ACETAMINOPHEN 325 MG TABLET. PO PRN (06:22)
[2020-05-04] MEDS ORDERED: INSULIN LISPRO 300 UNITS/3 ML VIAL. SQ SCH (07:30)
[2020-05-04] MEDS: FOLIC/VIT B COMP W-C (RENAL) TABLET. PO SCH (08:42)
[2020-05-04] MEDS: DOCUSATE SODIUM 100 MG CAPSULE. PO SCH ×2 (08:42→20:28)
[2020-05-04] MEDS: ZINC SULFATE 220 MG CAPSULE. PO SCH (08:42)
[2020-05-04] MEDS: CARVEDILOL 12.5 MG TABLET. PO SCH ×2 (08:42→17:06)
[2020-05-04] MEDS: LACTOBACILLUS RHAMNOSUS GG 1 CAPSULE. PO SCH ×2 (08:42→20:27)
[2020-05-04] MEDS: DEXAMETHASONE 4 MG TABLET PO SCH (08:43)
[2020-05-04] MEDS: MULTIVITAMIN with MINERAL TABLET. PO SCH (08:43)
[2020-05-04] MEDS: TORSEMIDE 20 MG TABLET. PO SCH ×2 (08:44→15:50)
[2020-05-04] MEDS: DULoxetine HCL 30 MG CAPSULE.DR PO SCH ×2 (08:44→20:28)
[2020-05-04] MEDS: SEVELAMER CARBONATE 800 MG TABLET. PO SCH ×3 (08:44→16:57)
[2020-05-04] MEDS: PANTOPRAZOLE IV PUSH 40 MG VIAL. IVP SCH (08:44)
[2020-05-04] MEDS: POTASSIUM CHLORIDE 20 MEQ TABLET.ER. PO SCH (08:44)
[2020-05-04] MEDS: LINAGLIPTIN 5 MG TABLET PO SCH (08:45)
[2020-05-04] MEDS: INSULIN GLARGINE SYRINGE. SQ SCH ×2 (08:47→22:04)
--- NOTE | 2020-05-04 09:52 | PDOC ---
PULMONARY PROGRESS NOTES DATE: 05/04/20 TIME: 09:48 Subjective Pt. is now on vapotherm only at 40 liters and 70% and 100% NRB mask No overnight concerns from nursing Vitals Vital Signs Date Time Temp Pulse Resp B/P (MAP) Pulse Ox O2 Delivery O2 Flow Rate FiO2 05/04/20 09:24 94 115/99 (104) 70 Nasal Cannula 40.0 05/04/20 08:06 98.6 98.6 05/04/20 06:00 17 Comments Patient is seen during COVID- pandemic, visual exam performed on vapotherm No accessory muscle use no distress No obvious rash or edema General: Alert, No acute distress Labs Laboratory Tests Test 05/02/20 11:53 05/02/20 17:17 05/02/20 20:59 05/03/20 08:53 Glucose (Fingerstick) 107 mg/dL (70-99) 63 mg/dL (70-99) 249 mg/dL (70-99) 174 mg/dL (70-99) Test 05/03/20 11:07 05/03/20 18:20 05/03/20 18:35 05/03/20 18:54 Glucose (Fingerstick) 170 mg/dL (70-99) 34 mg/dL (70-99) 210 mg/dL (70-99) Glucose Level 218 mg/dL (70-99) Test 05/04/20 00:32 05/04/20 05:30 05/04/20 07:35 Glucose (Fingerstick) 412 mg/dL (70-99) 234 mg/dL (70-99) Sodium Level 134 mmol/L (136-145) Potassium Level 3.4 mmol/L (3.5-5.1) Chloride Level 94 mmol/L (98-107) Carbon Dioxide Level 24 mmol/L (21-32) Anion Gap 16 (6-14) Blood Urea Nitrogen 114 mg/dL (7-20) Creatinine 4.5 mg/dL (0.6-1.0) Estimated GFR (Cockcroft-Gault) 10.1 Glucose Level 316 mg/dL (70-99) Calcium Level 9.0 mg/dL (8.5-10.1) Laboratory Tests Test 05/03/20 11:07 05/03/20 18:20 05/03/20 18:35 05/03/20 18:54 Glucose (Fingerstick) 170 mg/dL (70-99) 34 mg/dL (70-99) 210 mg/dL (70-99) Glucose Level 218 mg/dL (70-99) Test 05/04/20 00:32 05/04/20 05:30 05/04/20 07:35 Glucose (Fingerstick) 412 mg/dL (70-99) 234 mg/dL (70-99) Sodium Level 134 mmol/L (136-145) Potassium Level 3.4 mmol/L (3.5-5.1) Chloride Level 94 mmol/L (98-107) Carbon Dioxide Level 24 mmol/L (21-32) Anion Gap 16 (6-14) Blood Urea Nitrogen 114 mg/dL (7-20) Creatinine 4.5 mg/dL (0.6-1.0) Estimated GFR (Cockcroft-Gault) 10.1 Glucose Level 316 mg/dL (70-99) Calcium Level 9.0 mg/dL (8.5-10.1) Medications Active Scripts Medications Dose Route/Sig Max Daily Dose Days Date Category Dose Instructions Gabapentin 600 Mg Tablet 600 Mg PO HS 04/27/20 Reported Gabapentin (Gabapentin) 300 Mg Capsule 300 Mg PO DAILY 04/27/20 Reported Lantus Solostar (Insulin Glargine,Hum.rec.anlog) 100 Unit/1 Ml Insuln.pen 75 Unit SQ BID 09/19/19 Reported Januvia (Sitagliptin Phosphate) 25 Mg Tablet 25 Mg PO DAILY 09/19/19 Reported Novolog (Insulin Aspart) 100 Unit/1 Ml Cartridge 0 SQ TIDAC 01/26/19 Reported Sliding scale; patient has printout (at home) of scale. Unknown at this time. Singulair Tablet (Montelukast Sodium) 10 Mg Tablet 10 Mg PO HS 11/24/18 Reported Atorvastatin Calcium 40 Mg Tablet 1 Tab PO QHS 11/24/18 Reported Torsemide 20 Mg Tablet 2 Tab PO BID 11/24/18 Reported Cymbalta (Duloxetine Hcl) 30 Mg Capsule. 1 Cap PO BID 11/24/18 Reported Daily Jalen (Multivitamin) 1 Each Tablet 1 Each PO DAILY 11/24/18 Reported Comments CTA chest IMPRESSION: 1. No evidence of pulmonary thromboembolic disease. 2. Multifocal bilateral groundglass opacities and consolidations, consistent with patient's history of infection. 3. Dilated pulmonary trunk, which can be seen with pulmonary hypertension. Impression . IMPRESSION: 1. Acute hypoxemic respiratory failure secondary to COVID-19 viral pneumonia./ ALI/ARDS 2. COVID-[address] angiogram, no evidence of pulmonary embolism. 4. Chronic kidney disease, on peritoneal dialysis. 5. Morbid obesity. 6. Obstructive sleep apnea. 7. Hyperlipidemia. 8. Hypertension. Plan . PLAN: Continue supplemental oxygen to keep oxygen saturations greater than 92%, currently on Vapotherm 70% and 40 liters and 100% NRB Try pt. on vapotherm 100%, and attempt to wean off NRB mask if tolerated Follow chest x-ray/ABG Continue steroids with slow taper Follow ID recs for ABX, currently off ABX Completed Full course of remdesivir Follow nephrology recommendations in regards to peritoneal dialysis HTN per PCP Hypoglycemia per PCP, consider starting PPN if po intake is not adequate DVT/GI prophylaxis Discussed with RN and RT remains critically ill 30 minutes critical care time RAFAL SINHA MD May 04, 2020 09:52
--- NOTE | 2020-05-04 09:56 | PDOC ---
Provider Note Date of Service: DATE: 05/04/20 TIME: 09:55 Provider Note glucose labile on lower decdron, will adjust both lantus and humalog, follow, bp ok, rest of meds same Justifications for Admission Other Justification VERNA GARCIA MD May 04, 2020 09:56
--- NOTE | 2020-05-04 10:08 | PDOC ---
Infectious Disease Note Subjective: Subjective Patient remains on Vapotherm Vital Signs: Vital Signs Vital Signs Date Time Temp Pulse Resp B/P (MAP) Pulse Ox O2 Delivery O2 Flow Rate FiO2 05/04/20 10:04 90 103/80 (88) 70 Nasal Cannula 40.0 05/04/20 08:06 98.6 98.6 05/04/20 06:00 17 Physical Exam: PHYSICAL EXAM GENERAL: Patient on BiPAP, arousable HEENT: Normocephalic, atraumatic. Anicteric. No thrush. NECK: Supple, no JVD. LUNGS: Decreased breath sounds. No wheezing. HEART: S1, S2. No gallops or murmurs. ABDOMEN: Soft bowel sounds present nontender nondistended EXTREMITIES: No edema, no cyanosis. DERMATOLOGIC: Warm, dry. No generalized rash. NEUROLOGIC: Sleepy but arousable, Medications: Inpatient Meds: Current Medications Medications (Trade) Dose Ordered Sig/Mya Start Time Stop Time Status Last Admin Dose Admin Acetaminophen (Tylenol) 650 mg PRN Q4HRS PRN 04/27/20 23:15 05/04/20 06:22 650 MG Ascorbic Acid (Vitamin C) 1,000 mg DAILY 04/28/20 13:00 04/30/20 08:57 DC 04/30/20 08:11 1,000 MG Atorvastatin Calcium (Lipitor) 40 mg QHS 04/27/20 21:00 04/30/20 08:57 DC 04/29/20 19:57 40 MG Azithromycin 250 ml @ 250 mls/hr 1X ONCE 04/26/20 23:00 04/26/20 23:59 DC 04/26/20 23:18 250 MLS/HR Carvedilol (Coreg) 25 mg BIDWMEALS 05/01/20 17:00 05/04/20 08:42 25 MG Ceftriaxone Sodium (Rocephin) 1 gm Q24H 04/28/20 13:00 05/03/20 09:20 DC 05/02/20 12:20 1 GM Cyclobenzaprine HCl (Flexeril) 10 mg PRN QID PRN 04/28/20 21:00 05/01/20 00:02 10 MG Dexamethasone (Decadron) 4 mg DAILYWBKFT 05/04/20 08:00 05/04/20 08:43 4 MG Dextrose (Dextrose 50%-Water Syringe) 12.5 gm PRN Q15MIN PRN 04/27/20 04:00 05/03/20 18:50 25 GM Docusate Sodium (Colace) 100 mg BID 05/01/20 12:45 05/04/20 08:42 100 MG Doxycycline Hyclate (Vibra-Tab) 100 mg BID 04/28/20 13:00 05/03/20 09:20 DC 05/03/20 08:36 100 MG Duloxetine HCl (Cymbalta) 30 mg BID 04/27/20 09:00 05/04/20 08:44 30 MG Enoxaparin Sodium (Lovenox 30mg Syringe) 30 mg Q24H 04/28/20 13:00 04/28/20 12:38 DC Gabapentin (Neurontin) 600 mg QHS 04/27/20 04:30 05/03/20 21:28 600 MG Heparin Sodium (Porcine) (Heparin Sodium) 5,000 unit Q8HRS 04/28/20 14:00 05/04/20 06:22 5,000 UNIT Info (CONTRAST GIVEN -- Rx MONITORING) 1 each PRN DAILY PRN 04/26/20 20:45 04/28/20 20:44 DC Insulin Glargine (Lantus Syringe) 60 unit 1X ONCE 05/04/20 01:15 05/04/20 01:16 DC 05/04/20 01:19 60 UNIT Insulin Human Lispro (HumaLOG) 15 units TIDAC 05/04/20 07:30 05/04/20 07:49 15 UNITS Iohexol (Omnipaque 350 Mg/ml) 100 ml 1X ONCE 04/26/20 20:45 04/26/20 20:46 DC 04/26/20 21:20 100 ML Lactobacillus Rhamnosus (Culturelle) 1 cap BID 04/29/20 21:00 05/04/20 08:42 1 CAP Lactulose (Lactulose) 20 gm PRN 1X PRN 05/03/20 13:45 Linagliptin (Tradjenta) 5 mg DAILY 04/27/20 09:00 05/04/20 08:45 5 MG Montelukast Sodium (Singulair) 10 mg HS 04/27/20 21:00 04/30/20 08:57 DC 04/29/20 19:57 10 MG Multivitamins (Thera M Plus) 1 tab DAILY 04/27/20 09:00 05/04/20 08:43 1 TAB Non-Formulary Medication (Gabapentin ) 600 mg HS 04/27/20 21:00 UNV Ondansetron HCl (Zofran Odt) 4 mg PRN Q6HRS PRN 04/28/20 12:15 04/28/20 12:34 4 MG Ondansetron HCl (Zofran) 4 mg PRN Q8HRS PRN 04/26/20 22:45 04/27/20 22:44 DC Pantoprazole Sodium (PROTONIX VIAL for IV PUSH) 40 mg DAILY 05/02/20 09:00 05/04/20 08:44 40 MG Potassium Chloride/Water 100 ml @ 100 mls/hr Q1H 05/01/20 15:00 05/01/20 18:59 DC 05/01/20 19:55 100 MLS/HR Potassium Chloride (Klor-Con) 20 meq DAILYWBKFT 05/02/20 08:00 05/04/20 08:44 20 MEQ Remdesivir 100 mg/ Sodium Chloride 230 ml @ 460 mls/hr Q24H 04/29/20 14:00 05/02/20 14:29 DC 05/02/20 14:27 460 MLS/HR Remdesivir 200 mg/ Sodium Chloride 210 ml @ 210 mls/hr 1X ONCE 04/28/20 14:00 04/28/20 14:59 DC 04/28/20 15:39 210 MLS/HR Sevelamer Carbonate (Renvela) 1,600 mg TIDWMEALS 05/02/20 17:00 05/04/20 08:44 1,600 MG Sodium Chloride 1,000 ml @ 1,000 mls/hr 1X ONCE 04/26/20 19:15 04/26/20 20:14 DC 04/26/20 19:17 1,000 MLS/HR Sterile Water (WATER for RESP) 1,000 ml CONT PRN 04/30/20 20:30 05/04/20 00:46 1,000 ML Temazepam (Restoril) 15 mg PRN QHS PRN 04/28/20 21:00 04/29/20 06:48 DC 04/28/20 22:48 15 MG Torsemide (Demadex) 40 mg [id number] 04/27/20 09:00 05/04/20 08:44 40 MG Vitamin B Complex/ Vitamin C (Kelly-Jalen) 1 tab DAILY 04/29/20 14:00 05/04/20 08:42 1 TAB Vitamin D (Vitamin D3) 500 unit DAILY 04/28/20 13:00 04/30/20 08:57 DC 04/30/20 08:10 500 UNIT Zinc Sulfate (Orazinc) 220 mg DAILY 04/28/20 13:00 05/04/20 08:42 220 MG Labs: Lab Laboratory Tests Test 05/03/20 11:07 05/03/20 18:20 05/03/20 18:35 05/03/20 18:54 Glucose (Fingerstick) 170 mg/dL (70-99) 34 mg/dL (70-99) 210 mg/dL (70-99) Glucose Level 218 mg/dL (70-99) Test 05/04/20 00:32 05/04/20 05:30 05/04/20 07:35 Glucose (Fingerstick) 412 mg/dL (70-99) 234 mg/dL (70-99) Sodium Level 134 mmol/L (136-145) Potassium Level 3.4 mmol/L (3.5-5.1) Chloride Level 94 mmol/L (98-107) Carbon Dioxide Level 24 mmol/L (21-32) Anion Gap 16 (6-14) Blood Urea Nitrogen 114 mg/dL (7-20) Creatinine 4.5 mg/dL (0.6-1.0) Estimated GFR (Cockcroft-Gault) 10.1 Glucose Level 316 mg/dL (70-99) Calcium Level 9.0 mg/dL (8.5-10.1) Objective: Assessment: 1. COVID-19 infection. 2. Acute hypoxic respiratory failure due to COVID-19 viral pneumonia. 3. Chronic kidney disease, on peritoneal dialysis. 4. Diabetes mellitus. 5. Morbid obesity. 6. History of obstructive sleep apnea. 7. Hyperlipidemia, hypertension. Plan: Plan of Care Continue supportive care Status post remdesivir On steroids. Monitor off antibiotics STANTON ALBERT MD May 04, 2020 10:08
[2020-05-04] MEDS: AMINO AC 3%/ELECTROLYTE/GLYCER 1,000 ML IV SCH ×2 (10:25→23:43)
--- NOTE | 2020-05-04 14:17 | PDOC ---
Renal-Progress Notes Subjective Notes Notes FEELING BETTER History of Present Illness Hx of present illness OFF BIPAP Vitals Vitals Vital Signs Date Time Temp Pulse Resp B/P (MAP) Pulse Ox O2 Delivery O2 Flow Rate FiO2 05/04/20 13:00 89 144/87 (106) 100 Nasal Cannula 40.0 05/04/20 08:06 98.6 98.6 05/04/20 06:00 17 Weight Weight [ ] I.O. Intake and Output Intake and Output 05/04/20 07:00 Intake Total 820 ml Output Total 765 ml Balance 55 ml Intake Oral 820 ml Output Urine Total 765 ml # Bowel Movements 1 Labs Labs Laboratory Tests Test 05/03/20 18:20 05/03/20 18:35 05/03/20 18:54 05/04/20 00:32 Glucose Level 218 mg/dL (70-99) Glucose (Fingerstick) 34 mg/dL (70-99) 210 mg/dL (70-99) 412 mg/dL (70-99) Test 05/04/20 05:30 05/04/20 07:35 05/04/20 11:34 Sodium Level 134 mmol/L (136-145) Potassium Level 3.4 mmol/L (3.5-5.1) Chloride Level 94 mmol/L (98-107) Carbon Dioxide Level 24 mmol/L (21-32) Anion Gap 16 (6-14) Blood Urea Nitrogen 114 mg/dL (7-20) Creatinine 4.5 mg/dL (0.6-1.0) Estimated GFR (Cockcroft-Gault) 10.1 Glucose Level 316 mg/dL (70-99) Calcium Level 9.0 mg/dL (8.5-10.1) Glucose (Fingerstick) 234 mg/dL (70-99) 86 mg/dL (70-99) Micro Micro Microbiology 04/26/20 Blood Culture - Final, Complete NO GROWTH AFTER 5 DAYS Review of Systems Constitutional: yes: alert, oriented Ears/Nose/Throat: Yes: no symptom reported Eyes: Yes: no symptom reported Pulmonary: Yes dyspnea Cardiovascular: Yes no symptom reported Gastrointestional: Yes: constipation Genitourinary: Yes: no symptom reported Musculoskeletal: Yes: muscle stiffness Skin: Yes no symptom reported Psychiatric/Neurological: Yes: no symptom reported Endocrine: Yes: no symptom reported Physical Exam General Appearance: no apparent distress Skin: warm Respiratory: decreased breath sounds Heart: S1S2 Abdomen: soft Genitourinary: bladder flat Extremities: pulses present Neurology: alert, oriented Musculoskeletal: low back pain, Osteoarthritis Assessment Assessment IMP ESRD ACUTE RESP FAILURE ANEMIA COVID 19 DM II MORBID OBESITY CONSTIPATION LOW K PLAN CONT WITH APD ID EVAL AND TX K REPLACEMENT CONT BIPAP NEEDED ON VAPOTHERM CONT TO USE ALL 4.25% DIANEAL LACTULOSE CARTER PEREZ MD May 04, 2020 14:17
[2020-05-04] MEDS: GABAPENTIN 300 MG CAPSULE. PO SCH (20:28)
[2020-05-04] MEDS ORDERED: INSULIN LISPRO 300 UNITS/3 ML VIAL. SQ ONE (22:45)
[2020-05-05] VITALS (24 sets, daily range): BP systolic 91–166; BP diastolic 52–92
[2020-05-05] MEDS: STERILE WATER for RESP 1,000 ML BAG. INH PRN (00:20)
[2020-05-05] MEDS ORDERED: INSULIN LISPRO 300 UNITS/3 ML VIAL. SQ ONE (01:45)
[2020-05-05] MEDS ORDERED: INSULIN GLARGINE SYRINGE. SQ ONE (02:00)
[2020-05-05] MEDS: ACETAMINOPHEN 325 MG TABLET. PO PRN (04:01)
[2020-05-05] MEDS: HEPARIN for SUB-Q USE 5,000 UNIT/ML VIAL. SQ SCH ×3 (06:32→21:36)
[2020-05-05] MEDS: LACTOBACILLUS RHAMNOSUS GG 1 CAPSULE. PO SCH ×2 (08:35→21:34)
[2020-05-05] MEDS: PANTOPRAZOLE IV PUSH 40 MG VIAL. IVP SCH (08:35)
[2020-05-05] MEDS: MULTIVITAMIN with MINERAL TABLET. PO SCH (08:35)
[2020-05-05] MEDS: LINAGLIPTIN 5 MG TABLET PO SCH (08:35)
[2020-05-05] MEDS: FOLIC/VIT B COMP W-C (RENAL) TABLET. PO SCH (08:35)
[2020-05-05] MEDS: DEXAMETHASONE 4 MG TABLET PO SCH (08:35)
[2020-05-05] MEDS: ZINC SULFATE 220 MG CAPSULE. PO SCH (08:35)
[2020-05-05] MEDS: DOCUSATE SODIUM 100 MG CAPSULE. PO SCH ×2 (08:36→21:34)
[2020-05-05] MEDS: DULoxetine HCL 30 MG CAPSULE.DR PO SCH ×2 (08:36→21:34)
[2020-05-05] MEDS: SEVELAMER CARBONATE 800 MG TABLET. PO SCH ×3 (08:36→15:48)
[2020-05-05] MEDS: POTASSIUM CHLORIDE 20 MEQ TABLET.ER. PO SCH (08:36)
[2020-05-05] MEDS: TORSEMIDE 20 MG TABLET. PO SCH ×2 (08:36→15:48)
[2020-05-05] MEDS: CARVEDILOL 12.5 MG TABLET. PO SCH ×2 (08:42→19:15)
[2020-05-05] MEDS: INSULIN GLARGINE SYRINGE. SQ SCH ×2 (09:01→21:36)
--- NOTE | 2020-05-05 10:19 | PDOC ---
Provider Note Date of Service: DATE: 05/05/20 TIME: 10:18 Provider Note glucose labile on lower dose lantus so dose up again while decadron , rest same Justifications for Admission Other Justification VERNA GARCIA MD May 05, 2020 10:19
--- NOTE | 2020-05-05 10:58 | PDOC ---
PULMONARY PROGRESS NOTES DATE: 05/05/20 TIME: 10:56 Subjective Pt. is now on vapotherm at 40 liters 100% , off NRB mask No overnight concerns from nursing Vitals Vital Signs Date Time Temp Pulse Resp B/P (MAP) Pulse Ox O2 Delivery O2 Flow Rate FiO2 05/05/20 10:00 82 16 120/63 (82) 93 Nasal Cannula 40.0 05/05/20 08:00 98.7 98.7 Comments Patient is seen during , visual exam performed on vapotherm No accessory muscle use no distress No obvious rash or edema General: Alert, No acute distress Labs Laboratory Tests Test 05/03/20 11:07 05/03/20 18:20 05/03/20 18:35 05/03/20 18:54 Glucose (Fingerstick) 170 mg/dL (70-99) 34 mg/dL (70-99) 210 mg/dL (70-99) Glucose Level 218 mg/dL (70-99) Test 05/04/20 00:32 05/04/20 05:30 05/04/20 07:35 05/04/20 11:34 Glucose (Fingerstick) 412 mg/dL (70-99) 234 mg/dL (70-99) 86 mg/dL (70-99) Sodium Level 134 mmol/L (136-145) Potassium Level 3.4 mmol/L (3.5-5.1) Chloride Level 94 mmol/L (98-107) Carbon Dioxide Level 24 mmol/L (21-32) Anion Gap 16 (6-14) Blood Urea Nitrogen 114 mg/dL (7-20) Creatinine 4.5 mg/dL (0.6-1.0) Estimated GFR (Cockcroft-Gault) 10.1 Glucose Level 316 mg/dL (70-99) Calcium Level 9.0 mg/dL (8.5-10.1) Test 05/04/20 17:00 05/04/20 22:11 05/05/20 01:06 05/05/20 09:03 Glucose (Fingerstick) 214 mg/dL (70-99) 539 mg/dL (70-99) 556 mg/dL (70-99) 88 mg/dL (70-99) Test 05/05/20 09:05 Glucose (Fingerstick) 81 mg/dL (70-99) Laboratory Tests Test 05/04/20 11:34 05/04/20 17:00 05/04/20 22:11 05/05/20 01:06 Glucose (Fingerstick) 86 mg/dL (70-99) 214 mg/dL (70-99) 539 mg/dL (70-99) 556 mg/dL (70-99) Test 05/05/20 09:03 05/05/20 09:05 Glucose (Fingerstick) 88 mg/dL (70-99) 81 mg/dL (70-99) Medications Active Scripts Medications Dose Route/Sig Max Daily Dose Days Date Category Dose Instructions Gabapentin 600 Mg Tablet 600 Mg PO HS 04/27/20 Reported Gabapentin (Gabapentin) 300 Mg Capsule 300 Mg PO DAILY 04/27/20 Reported Lantus Solostar (Insulin Glargine,Hum.rec.anlog) 100 Unit/1 Ml Insuln.pen 75 Unit SQ BID 09/19/19 Reported Januvia (Sitagliptin Phosphate) 25 Mg Tablet 25 Mg PO DAILY 09/19/19 Reported Novolog (Insulin Aspart) 100 Unit/1 Ml Cartridge 0 SQ TIDAC 01/26/19 Reported Sliding scale; patient has printout (at home) of scale. Unknown at this time. Singulair Tablet (Montelukast Sodium) 10 Mg Tablet 10 Mg PO HS 11/24/18 Reported Atorvastatin Calcium 40 Mg Tablet 1 Tab PO QHS 11/24/18 Reported Torsemide 20 Mg Tablet 2 Tab PO BID 11/24/18 Reported Cymbalta (Duloxetine Hcl) 30 Mg Capsule.dr 1 Cap PO BID 11/24/18 Reported Daily Jalen (Multivitamin) 1 Each Tablet 1 Each PO DAILY 11/24/18 Reported Comments CTA chest IMPRESSION: 1. No evidence of pulmonary thromboembolic disease. 2. Multifocal bilateral groundglass opacities and consolidations, consistent with patient's history of infection. 3. Dilated pulmonary trunk, which can be seen with pulmonary hypertension. Impression . IMPRESSION: 1. Acute hypoxemic respiratory failure secondary to COVID-19 viral pneumonia./ ALI/ARDS 2. COVID-[address] angiogram, no evidence of pulmonary embolism. 4. Chronic kidney disease, on peritoneal dialysis. 5. Morbid obesity. 6. Obstructive sleep apnea. 7. Hyperlipidemia. 8. Hypertension. Plan . PLAN: Continue supplemental oxygen to keep oxygen saturations greater than 92%, currently on Vapotherm 100% and 40 liters ,off 100% NRB slowly improving. Follow chest x-ray/ABG prn Continue steroids with slow taper Follow ID recs for ABX, currently off ABX Completed Full course of remdesivir Follow nephrology recommendations in regards to peritoneal dialysis HTN per PCP Hypoglycemia per PCP, consider starting PPN if po intake is not adequate DVT/GI prophylaxis Discussed with RN and RT remains critically ill, BUT IMPROVING SLOWLY RAFAL SINHA MD May 05, 2020 10:58
--- NOTE | 2020-05-05 11:59 | PDOC ---
Infectious Disease Note Subjective: Subjective Patient remains on Vapotherm , on nasal cannula Vital Signs: Vital Signs Vital Signs Date Time Temp Pulse Resp B/P (MAP) Pulse Ox O2 Delivery O2 Flow Rate FiO2 05/05/20 11:00 82 16 137/71 (93) 93 Nasal Cannula 40.0 05/05/20 08:00 98.7 98.7 Physical Exam: PHYSICAL EXAM GENERAL: Patient on BiPAP, arousable HEENT: Normocephalic, atraumatic. Anicteric. No thrush. NECK: Supple, no JVD. LUNGS: Decreased breath sounds. No wheezing. HEART: S1, S2. No gallops or murmurs. ABDOMEN: Soft bowel sounds present nontender nondistended EXTREMITIES: No edema, no cyanosis. DERMATOLOGIC: Warm, dry. No generalized rash. NEUROLOGIC: Sleepy but arousable, Medications: Inpatient Meds: Current Medications Medications (Trade) Dose Ordered Sig/Mya Start Time Stop Time Status Last Admin Dose Admin Acetaminophen (Tylenol) 650 mg PRN Q4HRS PRN 04/27/20 23:15 05/05/20 04:01 650 MG Amino Acids/ Glycerin/ Electrolytes 1,000 ml @ 80 mls/hr [id number] 05/04/20 10:15 05/04/20 23:43 80 MLS/HR Ascorbic Acid (Vitamin C) 1,000 mg DAILY 04/28/20 13:00 04/30/20 08:57 DC 04/30/20 08:11 1,000 MG Atorvastatin Calcium (Lipitor) 40 mg QHS 04/27/20 21:00 04/30/20 08:57 DC 04/29/20 19:57 40 MG Azithromycin 250 ml @ 250 mls/hr 1X ONCE 04/26/20 23:00 04/26/20 23:59 DC 04/26/20 23:18 250 MLS/HR Carvedilol (Coreg) 25 mg BIDWMEALS 05/01/20 17:00 05/05/20 08:42 25 MG Ceftriaxone Sodium (Rocephin) 1 gm Q24H 04/28/20 13:00 05/03/20 09:20 DC 05/02/20 12:20 1 GM Cyclobenzaprine HCl (Flexeril) 10 mg PRN QID PRN 04/28/20 21:00 05/01/20 00:02 10 MG Dexamethasone (Decadron) 4 mg DAILYWBKFT 05/04/20 08:00 05/05/20 08:35 4 MG Dextrose (Dextrose 50%-Water Syringe) 12.5 gm PRN Q15MIN PRN 04/27/20 04:00 05/03/20 18:50 25 GM Docusate Sodium (Colace) 100 mg BID 05/01/20 12:45 05/05/20 08:36 100 MG Doxycycline Hyclate (Vibra-Tab) 100 mg BID 04/28/20 13:00 05/03/20 09:20 DC 05/03/20 08:36 100 MG Duloxetine HCl (Cymbalta) 30 mg BID 04/27/20 09:00 05/05/20 08:36 30 MG Enoxaparin Sodium (Lovenox 30mg Syringe) 30 mg Q24H 04/28/20 13:00 04/28/20 12:38 DC Gabapentin (Neurontin) 600 mg QHS 04/27/20 04:30 05/04/20 20:28 600 MG Heparin Sodium (Porcine) (Heparin Sodium) 5,000 unit Q8HRS 04/28/20 14:00 05/05/20 06:32 5,000 UNIT Info (CONTRAST GIVEN -- Rx MONITORING) 1 each PRN DAILY PRN 04/26/20 20:45 04/28/20 20:44 DC Insulin Glargine (Lantus Syringe) 80 unit BID 05/05/20 09:00 05/05/20 09:01 80 UNIT Insulin Human Lispro (HumaLOG) 30 units 1X ONCE 05/05/20 01:45 05/05/20 01:47 DC 05/05/20 02:04 30 UNITS Iohexol (Omnipaque 350 Mg/ml) 100 ml 1X ONCE 04/26/20 20:45 04/26/20 20:46 DC 04/26/20 21:20 100 ML Lactobacillus Rhamnosus (Culturelle) 1 cap BID 04/29/20 21:00 05/05/20 08:35 1 CAP Lactulose (Lactulose) 20 gm PRN 1X PRN 05/03/20 13:45 Linagliptin (Tradjenta) 5 mg DAILY 04/27/20 09:00 12/27/20 08:35 5 MG Montelukast Sodium (Singulair) 10 mg HS 04/27/20 21:00 04/30/20 08:57 DC 04/29/20 19:57 10 MG Multivitamins (Thera M Plus) 1 tab DAILY 04/27/20 09:00 05/05/20 08:35 1 TAB Non-Formulary Medication (Gabapentin ) 600 mg HS 04/27/20 21:00 UNV Ondansetron HCl (Zofran Odt) 4 mg PRN Q6HRS PRN 04/28/20 12:15 04/28/20 12:34 4 MG Ondansetron HCl (Zofran) 4 mg PRN Q8HRS PRN 04/26/20 22:45 04/27/20 22:44 DC Pantoprazole Sodium (PROTONIX VIAL for IV PUSH) 40 mg DAILY 05/02/20 09:00 05/05/20 08:35 40 MG Potassium Chloride/Water 100 ml @ 100 mls/hr Q1H 05/01/20 15:00 05/01/20 18:59 DC 05/01/20 19:55 100 MLS/HR Potassium Chloride (Klor-Con) 20 meq DAILYWBKFT 05/02/20 08:00 05/05/20 08:36 20 MEQ Remdesivir 100 mg/ Sodium Chloride 230 ml @ 460 mls/hr Q24H 04/29/20 14:00 05/02/20 14:29 DC 05/02/20 14:27 460 MLS/HR Remdesivir 200 mg/ Sodium Chloride 210 ml @ 210 mls/hr 1X ONCE 04/28/20 14:00 04/28/20 14:59 DC 04/28/20 15:39 210 MLS/HR Sevelamer Carbonate (Renvela) 1,600 mg TIDWMEALS 05/02/20 17:00 05/05/20 08:36 1,600 MG Sodium Chloride 1,000 ml @ 1,000 mls/hr 1X ONCE 04/26/20 19:15 04/26/20 20:14 DC 04/26/20 19:17 1,000 MLS/HR Sterile Water (WATER for RESP) 1,000 ml CONT PRN 04/30/20 20:30 05/05/20 00:20 1,000 ML Temazepam (Restoril) 15 mg PRN QHS PRN 04/28/20 21:00 04/29/20 06:48 DC 04/28/20 22:48 15 MG Torsemide (Demadex) 40 mg [id number] 04/27/20 09:00 05/05/20 08:36 40 MG Vitamin B Complex/ Vitamin C (Kelly-Jalen) 1 tab DAILY 04/29/20 14:00 05/05/20 08:35 1 TAB Vitamin D (Vitamin D3) 500 unit DAILY 04/28/20 13:00 04/30/20 08:57 DC 04/30/20 08:10 500 UNIT Zinc Sulfate (Orazinc) 220 mg DAILY 04/28/20 13:00 05/05/20 08:35 220 MG Labs: Lab Laboratory Tests Test 05/04/20 17:00 05/04/20 22:11 05/05/20 01:06 05/05/20 09:03 Glucose (Fingerstick) 214 mg/dL (70-99) 539 mg/dL (70-99) 556 mg/dL (70-99) 88 mg/dL (70-99) Test 05/05/20 09:05 Glucose (Fingerstick) 81 mg/dL (70-99) Objective: Assessment: 1. COVID-19 infection. 2. Acute hypoxic respiratory failure due to COVID-19 viral pneumonia. 3. Chronic kidney disease, on peritoneal dialysis. 4. Diabetes mellitus. 5. Morbid obesity. 6. History of obstructive sleep apnea. 7. Hyperlipidemia, hypertension. Plan: Plan of Care Continue supportive care Status post remdesivir On steroids. Monitor off antibiotics STANTON ALBERT MD May 05, 2020 11:59
[2020-05-05] MEDS: AMINO AC 3%/ELECTROLYTE/GLYCER 1,000 ML IV SCH (13:12)
--- NOTE | 2020-05-05 14:33 | PDOC ---
Renal-Progress Notes Subjective Notes Notes NO NEW COMPLAINTS History of Present Illness Hx of present illness STABLE Vitals Vitals Vital Signs Date Time Temp Pulse Resp B/P (MAP) Pulse Ox O2 Delivery O2 Flow Rate FiO2 05/05/20 13:00 81 18 91/64 (73) Nasal Cannula 40.0 05/05/20 12:00 98.5 92 98.5 Weight Weight [ ] I.O. Intake and Output Intake and Output 05/05/20 07:00 Intake Total 2413 ml Output Total 685 ml Balance 1728 ml Intake Oral 930 ml IV Total 1483 ml Output Urine Total 685 ml Labs Labs Laboratory Tests Test 05/04/20 17:00 05/04/20 22:11 05/05/20 01:06 05/05/20 09:03 Glucose (Fingerstick) 214 mg/dL (70-99) 539 mg/dL (70-99) 556 mg/dL (70-99) 88 mg/dL (70-99) Test 05/05/20 09:05 05/05/20 12:39 Glucose (Fingerstick) 81 mg/dL (70-99) 113 mg/dL (70-99) Micro Micro Microbiology 04/26/20 Blood Culture - Final, Complete NO GROWTH AFTER 5 DAYS Review of Systems Constitutional: yes: alert, oriented Ears/Nose/Throat: Yes: no symptom reported Eyes: Yes: no symptom reported Pulmonary: Yes dyspnea Cardiovascular: Yes no symptom reported Gastrointestional: Yes: constipation Genitourinary: Yes: no symptom reported Musculoskeletal: Yes: muscle stiffness Skin: Yes no symptom reported Psychiatric/Neurological: Yes: no symptom reported Endocrine: Yes: no symptom reported Physical Exam General Appearance: no apparent distress Skin: warm Respiratory: decreased breath sounds Heart: S1S2 Abdomen: soft Genitourinary: bladder flat Extremities: pulses present Neurology: alert, oriented Musculoskeletal: low back pain, Osteoarthritis Assessment Assessment IMP ESRD ACUTE RESP FAILURE ANEMIA COVID 19 DM II MORBID OBESITY CONSTIPATION-GOOD RESPONSE WITH LACTULOSE LOW K PLAN CONT WITH APD ID EVAL AND TX K REPLACEMENT NEEDED CONT BIPAP NEEDED ON VAPOTHERM CONT TO USE ALL 4.25% DIANEAL CARTER PEREZ MD May 05, 2020 14:33
[2020-05-05] MEDS: GABAPENTIN 300 MG CAPSULE. PO SCH (21:34)
[2020-05-06] VITALS (24 sets, daily range): BP systolic 116–165; BP diastolic 60–99
[2020-05-06] MEDS ORDERED: INSULIN LISPRO 300 UNITS/3 ML VIAL. SQ PRN (03:00)
[2020-05-06] MEDS ORDERED: INSULIN LISPRO 300 UNITS/3 ML VIAL. SQ ONE (03:00)
[2020-05-06] MEDS: AMINO AC 3%/ELECTROLYTE/GLYCER 1,000 ML IV SCH ×2 (03:11→16:46)
[2020-05-06] MEDS: HEPARIN for SUB-Q USE 5,000 UNIT/ML VIAL. SQ SCH ×3 (06:36→21:33)
[2020-05-06] MEDS: TORSEMIDE 20 MG TABLET. PO SCH ×2 (08:11→16:46)
[2020-05-06] MEDS: LACTOBACILLUS RHAMNOSUS GG 1 CAPSULE. PO SCH ×2 (08:11→21:24)
[2020-05-06] MEDS: FOLIC/VIT B COMP W-C (RENAL) TABLET. PO SCH (08:11)
[2020-05-06] MEDS: ZINC SULFATE 220 MG CAPSULE. PO SCH (08:11)
[2020-05-06] MEDS: CARVEDILOL 12.5 MG TABLET. PO SCH ×2 (08:12→16:47)
[2020-05-06] MEDS: DOCUSATE SODIUM 100 MG CAPSULE. PO SCH ×2 (08:12→21:24)
[2020-05-06] MEDS: LINAGLIPTIN 5 MG TABLET PO SCH (08:12)
[2020-05-06] MEDS: DULoxetine HCL 30 MG CAPSULE.DR PO SCH ×2 (08:12→21:24)
[2020-05-06] MEDS: POTASSIUM CHLORIDE 20 MEQ TABLET.ER. PO SCH (08:12)
[2020-05-06] MEDS: MULTIVITAMIN with MINERAL TABLET. PO SCH (08:12)
[2020-05-06] MEDS: PANTOPRAZOLE IV PUSH 40 MG VIAL. IVP SCH (08:13)
[2020-05-06] MEDS: DEXAMETHASONE 4 MG TABLET PO SCH (08:15)
[2020-05-06] MEDS: SEVELAMER CARBONATE 800 MG TABLET. PO SCH ×3 (08:16→16:46)
--- NOTE | 2020-05-06 08:54 | PDOC ---
Provider Note Date of Service: DATE: 05/06/20 TIME: 08:52 Provider Note SLOWLY BETTER, VSS, GLUCOSE HIGHLY LABILE LIKELY FROM DECADRON- WILL DC SAME NOW AFTER > 10 DAYS USE, ALLOW BETTER DM CONTROL AND LESS INSULIN Justifications for Admission Other Justification VERNA GARCIA MD May 06, 2020 08:54
[2020-05-06] MEDS: INSULIN GLARGINE SYRINGE. SQ SCH ×2 (09:00→21:32)
--- NOTE | 2020-05-06 09:25 | PDOC ---
Infectious Disease Note Subjective: Subjective Patient remains on Vapotherm , on nasal cannula Tolerating p.o. intake well No fevers Some abdominal discomfort Vital Signs: Vital Signs Vital Signs Date Time Temp Pulse Resp B/P (MAP) Pulse Ox O2 Delivery O2 Flow Rate FiO2 05/06/20 09:00 94 20 140/69 (92) 95 Nasal Cannula 40.0 05/06/20 08:00 98.6 98.6 Physical Exam: PHYSICAL EXAM GENERAL: Patient on BiPAP, arousable HEENT: Normocephalic, atraumatic. Anicteric. No thrush. NECK: Supple, no JVD. LUNGS: Decreased breath sounds. No wheezing. HEART: S1, S2. No gallops or murmurs. ABDOMEN: Soft bowel sounds present nontender nondistended EXTREMITIES: No edema, no cyanosis. DERMATOLOGIC: Warm, dry. No generalized rash. NEUROLOGIC: Sleepy but arousable, Medications: Inpatient Meds: Current Medications Medications (Trade) Dose Ordered Sig/Mya Start Time Stop Time Status Last Admin Dose Admin Acetaminophen (Tylenol) 650 mg PRN Q4HRS PRN 04/27/20 23:15 05/05/20 04:01 650 MG Amino Acids/ Glycerin/ Electrolytes 1,000 ml @ 80 mls/hr [id number] 05/04/20 10:15 05/06/20 03:11 80 MLS/HR Ascorbic Acid (Vitamin C) 1,000 mg DAILY 04/28/20 13:00 04/30/20 08:57 DC 04/30/20 08:11 1,000 MG Atorvastatin Calcium (Lipitor) 40 mg QHS 04/27/20 21:00 04/30/20 08:57 DC 04/29/20 19:57 40 MG Azithromycin 250 ml @ 250 mls/hr 1X ONCE 04/26/20 23:00 04/26/20 23:59 DC 04/26/20 23:18 250 MLS/HR Carvedilol (Coreg) 25 mg BIDWMEALS 05/01/20 17:00 05/06/20 08:12 25 MG Ceftriaxone Sodium (Rocephin) 1 gm Q24H 04/28/20 13:00 05/03/20 09:20 DC 05/02/20 12:20 1 GM Cyclobenzaprine HCl (Flexeril) 10 mg PRN QID PRN 12/20/20 21:00 05/01/20 00:02 10 MG Dexamethasone (Decadron) 4 mg DAILYWBKFT 05/04/20 08:00 05/06/20 08:33 DC 05/06/20 08:15 4 MG Dextrose (Dextrose 50%-Water Syringe) 12.5 gm PRN Q15MIN PRN 04/27/20 04:00 05/03/20 18:50 25 GM Docusate Sodium (Colace) 100 mg BID 05/01/20 12:45 05/06/20 08:12 100 MG Doxycycline Hyclate (Vibra-Tab) 100 mg BID 04/28/20 13:00 05/03/20 09:20 DC 05/03/20 08:36 100 MG Duloxetine HCl (Cymbalta) 30 mg BID 04/27/20 09:00 05/06/20 08:12 30 MG Enoxaparin Sodium (Lovenox 30mg Syringe) 30 mg Q24H 04/28/20 13:00 04/28/20 12:38 DC Gabapentin (Neurontin) 600 mg QHS 04/27/20 04:30 05/05/20 21:34 600 MG Heparin Sodium (Porcine) (Heparin Sodium) 5,000 unit Q8HRS 04/28/20 14:00 05/06/20 06:36 5,000 UNIT Info (CONTRAST GIVEN -- Rx MONITORING) 1 each PRN DAILY PRN 04/26/20 20:45 04/28/20 20:44 DC Insulin Glargine (Lantus Syringe) 80 unit BID 05/05/20 09:00 05/05/20 21:36 80 UNIT Insulin Human Lispro (HumaLOG) 20 units PRN BFRMEALHC PRN 05/06/20 03:00 Iohexol (Omnipaque 350 Mg/ml) 100 ml 1X ONCE 04/26/20 20:45 04/26/20 20:46 DC 04/26/20 21:20 100 ML Lactobacillus Rhamnosus (Culturelle) 1 cap BID 04/29/20 21:00 05/06/20 08:11 1 CAP Lactulose (Lactulose) 20 gm PRN 1X PRN 05/03/20 13:45 Linagliptin (Tradjenta) 5 mg DAILY 04/27/20 09:00 05/06/20 08:12 5 MG Montelukast Sodium (Singulair) 10 mg HS 04/27/20 21:00 04/30/20 08:57 DC 04/29/20 19:57 10 MG Multivitamins (Thera M Plus) 1 tab DAILY 04/27/20 09:00 05/06/20 08:12 1 TAB Non-Formulary Medication (Gabapentin ) 600 mg HS 04/27/20 21:00 UNV Ondansetron HCl (Zofran Odt) 4 mg PRN Q6HRS PRN 04/28/20 12:15 04/28/20 12:34 4 MG Ondansetron HCl (Zofran) 4 mg PRN Q8HRS PRN 04/26/20 22:45 04/27/20 22:44 DC Pantoprazole Sodium (PROTONIX VIAL for IV PUSH) 40 mg DAILY 05/02/20 09:00 05/06/20 08:13 40 MG Potassium Chloride/Water 100 ml @ 100 mls/hr Q1H 05/01/20 15:00 05/01/20 18:59 DC 05/01/20 19:55 100 MLS/HR Potassium Chloride (Klor-Con) 20 meq DAILYWBKFT 05/02/20 08:00 05/06/20 08:12 20 MEQ Remdesivir 100 mg/ Sodium Chloride 230 ml @ 460 mls/hr Q24H 04/29/20 14:00 05/02/20 14:29 DC 05/02/20 14:27 460 MLS/HR Remdesivir 200 mg/ Sodium Chloride 210 ml @ 210 mls/hr 1X ONCE 04/28/20 14:00 04/28/20 14:59 DC 04/28/20 15:39 210 MLS/HR Sevelamer Carbonate (Renvela) 1,600 mg TIDWMEALS 05/02/20 17:00 05/06/20 08:16 1,600 MG Sodium Chloride 1,000 ml @ 1,000 mls/hr 1X ONCE 04/26/20 19:15 04/26/20 20:14 DC 04/26/20 19:17 1,000 MLS/HR Sterile Water (WATER for RESP) 1,000 ml CONT PRN 04/30/20 20:30 05/05/20 00:20 1,000 ML Temazepam (Restoril) 15 mg PRN QHS PRN 04/28/20 21:00 04/29/20 06:48 DC 04/28/20 22:48 15 MG Torsemide (Demadex) 40 mg [id number] 04/27/20 09:00 05/06/20 08:11 40 MG Vitamin B Complex/ Vitamin C (Kelly-Jalen) 1 tab DAILY 04/29/20 14:00 05/06/20 08:11 1 TAB Vitamin D (Vitamin D3) 500 unit DAILY 04/28/20 13:00 04/30/20 08:57 DC 04/30/20 08:10 500 UNIT Zinc Sulfate (Orazinc) 220 mg DAILY 04/28/20 13:00 05/06/20 08:11 220 MG Labs: Lab Laboratory Tests Test 05/05/20 12:39 05/05/20 15:54 05/06/20 00:46 05/06/20 02:36 Glucose (Fingerstick) 113 mg/dL (70-99) 175 mg/dL (70-99) 360 mg/dL (70-99) 418 mg/dL (70-99) Objective: Assessment: 1. COVID-19 infection. 2. Acute hypoxic respiratory failure due to COVID-19 viral pneumonia. 3. Chronic kidney disease, on peritoneal dialysis. 4. Diabetes mellitus. 5. Morbid obesity. 6. History of obstructive sleep apnea. 7. Hyperlipidemia, hypertension. Plan: Plan of Care Continue supportive care Status post remdesivir steroids DC'd. Monitor off antibiotics STANTON ALBERT MD May 06, 2020 09:25
--- NOTE | 2020-05-06 10:11 | PDOC ---
DATE OF SERVICE DATE: 05/06/20 TIME: 09:52 SUBJECTIVE ROS Seen on PD , states she had mild cramping last night OBJECTIVE Vital Signs Vital Signs Date Time Temp Pulse Resp B/P (MAP) Pulse Ox O2 Delivery O2 Flow Rate FiO2 05/06/20 09:00 94 20 140/69 (92) 95 Nasal Cannula 40.0 05/06/20 08:00 98.6 98.6 I & 0 Intake and Output 05/06/20 07:00 Intake Total 1849 ml Output Total 960 ml Balance 889 ml Intake Oral 950 ml IV Total 899 ml Output Urine Total 960 ml PHYSICAL EXAM Physical Exam GENERAL: Patient on BiPAP, arousable HEENT: Anicteric, NC, vapotherm NECK: Supple, LUNGS: Decreased breath sounds. No wheezing. HEART: S1, S2. No gallops or murmurs. ABDOMEN: Soft bowel sounds present nontender , PD cath in place, no tenderness, no redness or discharge from exit site EXTREMITIES: No edema, no cyanosis. DERMATOLOGIC: Warm, dry. No generalized rash. 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 Acute hypoxic respiratory failure due to COVID-19 viral pneumonia. Diabetes mellitus. Morbid obesity. History of obstructive sleep apnea. Hypertension- BP stable COMMENT/RELEVANT DATA Meds Current Medications Medications (Trade) Dose Ordered Sig/Mya Start Time Stop Time Status Last Admin Dose Admin Acetaminophen (Tylenol) 650 mg PRN Q4HRS PRN 04/27/20 23:15 05/05/20 04:01 650 MG Amino Acids/ Glycerin/ Electrolytes 1,000 ml @ 80 mls/hr [id number] 05/04/20 10:15 05/06/20 03:11 80 MLS/HR Ascorbic Acid (Vitamin C) 1,000 mg DAILY 04/28/20 13:00 04/30/20 08:57 DC 04/30/20 08:11 1,000 MG Atorvastatin Calcium (Lipitor) 40 mg QHS 04/27/20 21:00 04/30/20 08:57 DC 04/29/20 19:57 40 MG Azithromycin 250 ml @ 250 mls/hr 1X ONCE 04/26/20 23:00 04/26/20 23:59 DC 04/26/20 23:18 250 MLS/HR Carvedilol (Coreg) 25 mg BIDWMEALS 05/01/20 17:00 05/06/20 08:12 25 MG Ceftriaxone Sodium (Rocephin) 1 gm Q24H 04/28/20 13:00 05/03/20 09:20 DC 05/02/20 12:20 1 GM Cyclobenzaprine HCl (Flexeril) 10 mg PRN QID PRN 04/28/20 21:00 05/01/20 00:02 10 MG Dexamethasone (Decadron) 4 mg DAILYWBKFT 05/04/20 08:00 05/06/20 08:33 DC 05/06/20 08:15 4 MG Dextrose (Dextrose 50%-Water Syringe) 12.5 gm PRN Q15MIN PRN 04/27/20 04:00 05/03/20 18:50 25 GM Docusate Sodium (Colace) 100 mg BID 05/01/20 12:45 05/06/20 08:12 100 MG Doxycycline Hyclate (Vibra-Tab) 100 mg BID 04/28/20 13:00 05/03/20 09:20 DC 05/03/20 08:36 100 MG Duloxetine HCl (Cymbalta) 30 mg BID 04/27/20 09:00 05/06/20 08:12 30 MG Enoxaparin Sodium (Lovenox 30mg Syringe) 30 mg Q24H 04/28/20 13:00 04/28/20 12:38 DC Gabapentin (Neurontin) 600 mg QHS 04/27/20 04:30 05/05/20 21:34 600 MG Heparin Sodium (Porcine) (Heparin Sodium) 5,000 unit Q8HRS 04/28/20 14:00 05/06/20 06:36 5,000 UNIT Info (CONTRAST GIVEN -- Rx MONITORING) 1 each PRN DAILY PRN 04/26/20 20:45 04/28/20 20:44 DC Insulin Glargine (Lantus Syringe) 80 unit BID 05/05/20 09:00 05/05/20 21:36 80 UNIT Insulin Human Lispro (HumaLOG) 20 units PRN BFRMEALHC PRN 05/06/20 03:00 Iohexol (Omnipaque 350 Mg/ml) 100 ml 1X ONCE 04/26/20 20:45 04/26/20 20:46 DC 04/26/20 21:20 100 ML Lactobacillus Rhamnosus (Culturelle) 1 cap BID 04/29/20 21:00 05/06/20 08:11 1 CAP Lactulose (Lactulose) 20 gm PRN 1X PRN 05/03/20 13:45 Linagliptin (Tradjenta) 5 mg DAILY 04/27/20 09:00 05/06/20 08:12 5 MG Montelukast Sodium (Singulair) 10 mg HS 04/27/20 21:00 04/30/20 08:57 DC 04/29/20 19:57 10 MG Multivitamins (Thera M Plus) 1 tab DAILY 04/27/20 09:00 05/06/20 08:12 1 TAB Non-Formulary Medication (Gabapentin ) 600 mg HS 04/27/20 21:00 UNV Ondansetron HCl (Zofran Odt) 4 mg PRN Q6HRS PRN 04/28/20 12:15 04/28/20 12:34 4 MG Ondansetron HCl (Zofran) 4 mg PRN Q8HRS PRN 04/26/20 22:45 04/27/20 22:44 DC Pantoprazole Sodium (PROTONIX VIAL for IV PUSH) 40 mg DAILY 05/02/20 09:00 05/06/20 08:13 40 MG Potassium Chloride/Water 100 ml @ 100 mls/hr Q1H 05/01/20 15:00 05/01/20 18:59 DC 05/01/20 19:55 100 MLS/HR Potassium Chloride (Klor-Con) 20 meq DAILYWBKFT 05/02/20 08:00 05/06/20 08:12 20 MEQ Remdesivir 100 mg/ Sodium Chloride 230 ml @ 460 mls/hr Q24H 04/29/20 14:00 05/02/20 14:29 DC 05/02/20 14:27 460 MLS/HR Remdesivir 200 mg/ Sodium Chloride 210 ml @ 210 mls/hr 1X ONCE 04/28/20 14:00 04/28/20 14:59 DC 04/28/20 15:39 210 MLS/HR Sevelamer Carbonate (Renvela) 1,600 mg TIDWMEALS 05/02/20 17:00 05/06/20 08:16 1,600 MG Sodium Chloride 1,000 ml @ 1,000 mls/hr 1X ONCE 04/26/20 19:15 04/26/20 20:14 DC 04/26/20 19:17 1,000 MLS/HR Sterile Water (WATER for RESP) 1,000 ml CONT PRN 04/30/20 20:30 05/05/20 00:20 1,000 ML Temazepam (Restoril) 15 mg PRN QHS PRN 04/28/20 21:00 04/29/20 06:48 DC 04/28/20 22:48 15 MG Torsemide (Demadex) 40 mg [id number] 04/27/20 09:00 05/06/20 08:11 40 MG Vitamin B Complex/ Vitamin C (Kelly-Jalen) 1 tab DAILY 04/29/20 14:00 05/06/20 08:11 1 TAB Vitamin D (Vitamin D3) 500 unit DAILY 04/28/20 13:00 04/30/20 08:57 DC 04/30/20 08:10 500 UNIT Zinc Sulfate (Orazinc) 220 mg DAILY 04/28/20 13:00 05/06/20 08:11 220 MG Lab Laboratory Tests Test 05/05/20 12:39 05/05/20 15:54 05/06/20 00:46 05/06/20 02:36 Glucose (Fingerstick) 113 mg/dL (70-99) 175 mg/dL (70-99) 360 mg/dL (70-99) 418 mg/dL (70-99) Results All relevant outside records, renal labs, imaging studies, telemetry/EKG's were reviewed. Justicifation of Admission Dx: Justifications for Admission: Justification of Admission Dx: N/A FLORINA TRONCOSO MD May 06, 2020 10:11
[2020-05-06 11:02] LABS: CREATININE 4.5 mg/dL (0.6-1.0); GFR 10.1; POTASSIUM 3.8 mmol/L (3.5-5.1)
--- NOTE | 2020-05-06 11:11 | NUR ---
0900 dose of insulin held because pt has no desire to eat meals. BS 217 on labs, will check again at lunchtime and reassess depending on if pt has appetite.
--- NOTE | 2020-05-06 11:38 | PDOC ---
PULMONARY PROGRESS NOTES DATE: 05/06/20 TIME: 11:35 Subjective Pt. is now on vapotherm at 40 liters 100% No overnight concerns from nursing Vitals Vital Signs Date Time Temp Pulse Resp B/P (MAP) Pulse Ox O2 Delivery O2 Flow Rate FiO2 05/06/20 11:13 93 VAPOTHERM 40.0 05/06/20 11:00 89 18 118/60 (79) 05/06/20 08:00 98.6 98.6 Comments Patient is seen during pandemic, visual exam performed on vapotherm No accessory muscle use no distress No obvious rash or edema General: Alert, No acute distress Labs Laboratory Tests Test 05/04/20 17:00 05/04/20 22:11 05/05/20 01:06 05/05/20 09:03 Glucose (Fingerstick) 214 mg/dL (70-99) 539 mg/dL (70-99) 556 mg/dL (70-99) 88 mg/dL (70-99) Test 05/05/20 09:05 05/05/20 12:39 05/05/20 15:54 05/06/20 00:46 Glucose (Fingerstick) 81 mg/dL (70-99) 113 mg/dL (70-99) 175 mg/dL (70-99) 360 mg/dL (70-99) Test 05/06/20 02:36 05/06/20 10:20 Glucose (Fingerstick) 418 mg/dL (70-99) Sodium Level 132 mmol/L (136-145) Potassium Level 3.8 mmol/L (3.5-5.1) Chloride Level 92 mmol/L (98-107) Carbon Dioxide Level 24 mmol/L (21-32) Anion Gap 16 (6-14) Blood Urea Nitrogen 125 mg/dL (7-20) Creatinine 4.5 mg/dL (0.6-1.0) Estimated GFR (Cockcroft-Gault) 10.1 Glucose Level 217 mg/dL (70-99) Calcium Level 9.0 mg/dL (8.5-10.1) Laboratory Tests Test 05/05/20 12:39 05/05/20 15:54 05/06/20 00:46 05/06/20 02:36 Glucose (Fingerstick) 113 mg/dL (70-99) 175 mg/dL (70-99) 360 mg/dL (70-99) 418 mg/dL (70-99) Test 05/06/20 10:20 Sodium Level 132 mmol/L (136-145) Potassium Level 3.8 mmol/L (3.5-5.1) Chloride Level 92 mmol/L (98-107) Carbon Dioxide Level 24 mmol/L (21-32) Anion Gap 16 (6-14) Blood Urea Nitrogen 125 mg/dL (7-20) Creatinine 4.5 mg/dL (0.6-1.0) Estimated GFR (Cockcroft-Gault) 10.1 Glucose Level 217 mg/dL (70-99) Calcium Level 9.0 mg/dL (8.5-10.1) Medications Active Scripts Medications Dose Route/Sig Max Daily Dose Days Date Category Dose Instructions Gabapentin 600 Mg Tablet 600 Mg PO HS 04/27/20 Reported Gabapentin (Gabapentin) 300 Mg Capsule 300 Mg PO DAILY 04/27/20 Reported Lantus Solostar (Insulin Glargine,Hum.rec.anlog) 100 Unit/1 Ml Insuln.pen 75 Unit SQ BID 09/19/19 Reported Januvia (Sitagliptin Phosphate) 25 Mg Tablet 25 Mg PO DAILY 09/19/19 Reported Novolog (Insulin Aspart) 100 Unit/1 Ml Cartridge 0 SQ TIDAC 01/26/19 Reported Sliding scale; patient has printout (at home) of scale. Unknown at this time. Singulair Tablet (Montelukast Sodium) 10 Mg Tablet 10 Mg PO HS 11/24/18 Reported Atorvastatin Calcium 40 Mg Tablet 1 Tab PO QHS 11/24/18 Reported Torsemide 20 Mg Tablet 2 Tab PO BID 11/24/18 Reported Cymbalta (Duloxetine Hcl) 30 Mg Capsule.dr 1 Cap PO BID 11/24/18 Reported Daily Jalen (Multivitamin) 1 Each Tablet 1 Each PO DAILY 11/24/18 Reported Comments CTA chest IMPRESSION: 1. No evidence of pulmonary thromboembolic disease. 2. Multifocal bilateral groundglass opacities and consolidations, consistent with patient's history of infection. 3. Dilated pulmonary trunk, which can be seen with pulmonary hypertension. Impression . IMPRESSION: 1. Acute hypoxemic respiratory failure secondary to COVID-19 viral pneumonia./ ALI/ARDS 2. COVID-[address] angiogram, no evidence of pulmonary embolism. 4. Chronic kidney disease, on peritoneal dialysis. 5. Morbid obesity. 6. Obstructive sleep apnea. 7. Hyperlipidemia. 8. Hypertension. Plan . PLAN: Continue supplemental oxygen to keep oxygen saturations greater than 92%, currently on Vapotherm 100% and 40 liters, kalee;l reduce Fi02to 90% slowly improving. Follow chest x-ray/ABG prn has completed full course of steroids Follow ID recs for ABX, currently off ABX Completed Full course of remdesivir Follow nephrology recommendations in regards to peritoneal dialysis HTN per PCP PPN for nutritional support DVT/GI prophylaxis Discussed with RN and RT remains critically ill, BUT IMPROVING SLOWLY RAFAL SINHA MD May 06, 2020 11:38
[2020-05-06] MEDS: STERILE WATER for RESP 1,000 ML BAG. INH PRN (15:07)
--- NOTE | 2020-05-06 17:09 | NUR ---
SW following for today. Pt on 40l 02. Pt not stable or ready for discharge. kenyetta Rodney to continue following.
[2020-05-06] MEDS: GABAPENTIN 300 MG CAPSULE. PO SCH (21:24)
[2020-05-07] VITALS (24 sets, daily range): BP systolic 91–171; BP diastolic 56–105
[2020-05-07] MEDS: STERILE WATER for RESP 1,000 ML BAG. INH PRN (03:21)
[2020-05-07] MEDS: AMINO AC 3%/ELECTROLYTE/GLYCER 1,000 ML IV SCH (05:27)
[2020-05-07] MEDS: PANTOPRAZOLE IV PUSH 40 MG VIAL. IVP SCH (08:22)
[2020-05-07] MEDS: SEVELAMER CARBONATE 800 MG TABLET. PO SCH ×3 (08:22→17:28)
[2020-05-07] MEDS: DOCUSATE SODIUM 100 MG CAPSULE. PO SCH ×2 (08:22→20:38)
[2020-05-07] MEDS: CARVEDILOL 12.5 MG TABLET. PO SCH ×2 (08:22→17:27)
[2020-05-07] MEDS: TORSEMIDE 20 MG TABLET. PO SCH ×2 (08:23→17:27)
[2020-05-07] MEDS: FOLIC/VIT B COMP W-C (RENAL) TABLET. PO SCH (08:23)
[2020-05-07] MEDS: MULTIVITAMIN with MINERAL TABLET. PO SCH (08:23)
[2020-05-07] MEDS: DULoxetine HCL 30 MG CAPSULE.DR PO SCH ×2 (08:23→20:39)
[2020-05-07] MEDS: POTASSIUM CHLORIDE 20 MEQ TABLET.ER. PO SCH (08:23)
[2020-05-07] MEDS: ZINC SULFATE 220 MG CAPSULE. PO SCH (08:23)
[2020-05-07] MEDS: LACTOBACILLUS RHAMNOSUS GG 1 CAPSULE. PO SCH ×2 (08:23→20:38)
[2020-05-07] MEDS: LINAGLIPTIN 5 MG TABLET PO SCH (08:23)
[2020-05-07] MEDS: HEPARIN for SUB-Q USE 5,000 UNIT/ML VIAL. SQ SCH ×3 (08:24→21:55)
[2020-05-07] MEDS: INSULIN GLARGINE SYRINGE. SQ SCH ×3 (08:25→20:54)
--- NOTE | 2020-05-07 08:27 | PDOC ---
Infectious Disease Note Subjective: Subjective Patient remains on Vapotherm , on nasal cannula No fevers abdominal discomfort improved Vital Signs: Vital Signs Vital Signs Date Time Temp Pulse Resp B/P (MAP) Pulse Ox O2 Delivery O2 Flow Rate FiO2 05/07/20 08:22 86 157/84 05/07/20 08:10 94 VAPOTHERM 40.0 05/07/20 07:00 23 05/07/20 04:00 98.1 98.1 Physical Exam: PHYSICAL EXAM GENERAL: Patient on BiPAP, arousable HEENT: Normocephalic, atraumatic. Anicteric. No thrush. NECK: Supple, no JVD. LUNGS: Decreased breath sounds. No wheezing. HEART: S1, S2. No gallops or murmurs. ABDOMEN: Soft bowel sounds present nontender nondistended EXTREMITIES: No edema, no cyanosis. DERMATOLOGIC: Warm, dry. No generalized rash. NEUROLOGIC: Sleepy but arousable, Medications: Inpatient Meds: Current Medications Medications (Trade) Dose Ordered Sig/[facility] Start Time Stop Time Status Last Admin Dose Admin Acetaminophen (Tylenol) 650 mg PRN Q4HRS PRN 04/27/20 23:15 05/05/20 04:01 650 MG Amino Acids/ Glycerin/ Electrolytes 1,000 ml @ 80 mls/hr [id number] 05/04/20 10:15 05/07/20 05:27 80 MLS/HR Ascorbic Acid (Vitamin C) 1,000 mg DAILY 04/28/20 13:00 04/30/20 08:57 DC 04/30/20 08:11 1,000 MG Atorvastatin Calcium (Lipitor) 40 mg QHS 04/27/20 21:00 04/30/20 08:57 DC 04/29/20 19:57 40 MG Azithromycin 250 ml @ 250 mls/hr 1X ONCE 04/26/20 23:00 04/26/20 23:59 DC 04/26/20 23:18 250 MLS/HR Carvedilol (Coreg) 25 mg BIDWMEALS 05/01/20 17:00 05/07/20 08:22 25 MG Ceftriaxone Sodium (Rocephin) 1 gm Q24H 04/28/20 13:00 05/03/20 09:20 DC 05/02/20 12:20 1 GM Cyclobenzaprine HCl (Flexeril) 10 mg PRN QID PRN 04/28/20 21:00 05/01/20 00:02 10 MG Dexamethasone (Decadron) 4 mg DAILYWBKFT 05/04/20 08:00 05/06/20 08:33 DC 05/06/20 08:15 4 MG Dextrose (Dextrose 50%-Water Syringe) 12.5 gm PRN Q15MIN PRN 04/27/20 04:00 05/03/20 18:50 25 GM Docusate Sodium (Colace) 100 mg BID 05/01/20 12:45 05/07/20 08:22 100 MG Doxycycline Hyclate (Vibra-Tab) 100 mg BID 04/28/20 13:00 05/03/20 09:20 DC 05/03/20 08:36 100 MG Duloxetine HCl (Cymbalta) 30 mg BID 04/27/20 09:00 05/07/20 08:23 30 MG Enoxaparin Sodium (Lovenox 30mg Syringe) 30 mg Q24H 04/28/20 13:00 04/28/20 12:38 DC Gabapentin (Neurontin) 600 mg QHS 04/27/20 04:30 05/06/20 21:24 600 MG Heparin Sodium (Porcine) (Heparin Sodium) 5,000 unit Q8HRS 04/28/20 14:00 05/06/20 21:33 5,000 UNIT Info (CONTRAST GIVEN -- Rx MONITORING) 1 each PRN DAILY PRN 04/26/20 20:45 04/28/20 20:44 DC Insulin Glargine (Lantus Syringe) 80 unit BID 05/05/20 09:00 05/06/20 21:32 80 UNIT Insulin Human Lispro (HumaLOG) 20 units PRN BFRMEALHC PRN 05/06/20 03:00 Iohexol (Omnipaque 350 Mg/ml) 100 ml 1X ONCE 04/26/20 20:45 04/26/20 20:46 DC 04/26/20 21:20 100 ML Lactobacillus Rhamnosus (Culturelle) 1 cap BID 04/29/20 21:00 05/07/20 08:23 1 CAP Lactulose (Lactulose) 20 gm PRN 1X PRN 05/03/20 13:45 Linagliptin (Tradjenta) 5 mg DAILY 04/27/20 09:00 05/07/20 08:23 5 MG Montelukast Sodium (Singulair) 10 mg HS 04/27/20 21:00 04/30/20 08:57 DC 04/29/20 19:57 10 MG Multivitamins (Thera M Plus) 1 tab DAILY 04/27/20 09:00 05/07/20 08:23 1 TAB Non-Formulary Medication (Gabapentin ) 600 mg HS 04/27/20 21:00 UNV Ondansetron HCl (Zofran Odt) 4 mg PRN Q6HRS PRN 04/28/20 12:15 04/28/20 12:34 4 MG Ondansetron HCl (Zofran) 4 mg PRN Q8HRS PRN 04/26/20 22:45 04/27/20 22:44 DC Pantoprazole Sodium (PROTONIX VIAL for IV PUSH) 40 mg DAILY 05/02/20 09:00 05/07/20 08:22 40 MG Potassium Chloride/Water 100 ml @ 100 mls/hr Q1H 05/01/20 15:00 05/01/20 18:59 DC 05/01/20 19:55 100 MLS/HR Potassium Chloride (Klor-Con) 20 meq DAILYWBKFT 05/02/20 08:00 05/07/20 08:23 20 MEQ Remdesivir 100 mg/ Sodium Chloride 230 ml @ 460 mls/hr Q24H 04/29/20 14:00 05/02/20 14:29 DC 05/02/20 14:27 460 MLS/HR Remdesivir 200 mg/ Sodium Chloride 210 ml @ 210 mls/hr 1X ONCE 04/28/20 14:00 04/28/20 14:59 DC 04/28/20 15:39 210 MLS/HR Sevelamer Carbonate (Renvela) 1,600 mg TIDWMEALS 05/02/20 17:00 05/07/20 08:22 1,600 MG Sodium Chloride 1,000 ml @ 1,000 mls/hr 1X ONCE 04/26/20 19:15 04/26/20 20:14 DC 04/26/20 19:17 1,000 MLS/HR Sterile Water (WATER for RESP) 1,000 ml CONT PRN 04/30/20 20:30 05/07/20 03:21 1,000 ML Temazepam (Restoril) 15 mg PRN QHS PRN 04/28/20 21:00 04/29/20 06:48 DC 04/28/20 22:48 15 MG Torsemide (Demadex) 40 mg [id number] 04/27/20 09:00 05/07/20 08:23 40 MG Vitamin B Complex/ Vitamin C (Kelly-Jalen) 1 tab DAILY 04/29/20 14:00 05/07/20 08:23 1 TAB Vitamin D (Vitamin D3) 500 unit DAILY 04/28/20 13:00 04/30/20 08:57 DC 04/30/20 08:10 500 UNIT Zinc Sulfate (Orazinc) 220 mg DAILY 04/28/20 13:00 05/07/20 08:23 220 MG Labs: Lab Laboratory Tests Test 05/06/20 10:20 05/06/20 17:39 05/06/20 21:27 Sodium Level 132 mmol/L (136-145) Potassium Level 3.8 mmol/L (3.5-5.1) Chloride Level 92 mmol/L (98-107) Carbon Dioxide Level 24 mmol/L (21-32) Anion Gap 16 (6-14) Blood Urea Nitrogen 125 mg/dL (7-20) Creatinine 4.5 mg/dL (0.6-1.0) Estimated GFR (Cockcroft-Gault) 10.1 Glucose Level 217 mg/dL (70-99) Calcium Level 9.0 mg/dL (8.5-10.1) Glucose (Fingerstick) 305 mg/dL (70-99) 403 mg/dL (70-99) Objective: Assessment: 1. COVID-19 infection. 2. Acute hypoxic respiratory failure due to COVID-19 viral pneumonia. 3. Chronic kidney disease, on peritoneal dialysis. 4. Diabetes mellitus. 5. Morbid obesity. 6. History of obstructive sleep apnea. 7. Hyperlipidemia, hypertension. Plan: Plan of Care Continue supportive care Status post remdesivir steroids DC'd. Monitor off antibiotics We will sign off Call with any questions STANTON ALBERT MD May 07, 2020 08:27
--- NOTE | 2020-05-07 08:49 | PDOC ---
Provider Note Date of Service: DATE: 05/07/20 TIME: 08:47 Provider Note off decadron 24 hrs , glucose still high, on lantus 160 /d but has not received humalog as ordered re glucose > 200- keep lantus same for now, follow and increase prn re use of PPN Justifications for Admission Other Justification VERNA GARCIA MD May 07, 2020 08:49
--- NOTE | 2020-05-07 13:24 | PDOC ---
DATE OF SERVICE DATE: 05/07/20 TIME: 13:10 SUBJECTIVE ROS Feeling better, no complaints with last night OBJECTIVE Vital Signs Vital Signs Date Time Temp Pulse Resp B/P (MAP) Pulse Ox O2 Delivery O2 Flow Rate FiO2 05/07/20 12:00 98.5 87 18 145/69 (94) 93 Nasal Cannula 40.0 98.5 I & 0 Intake and Output 05/07/20 07:00 Intake Total 2322 ml Output Total 1155 ml Balance 1167 ml Intake Oral 1350 ml IV Total 972 ml Output Urine Total 1155 ml PHYSICAL EXAM Physical Exam GENERAL: NAD, more alert , eating, propped up in bed HEENT: Anicteric, OM moist NECK: Supple, LUNGS: Decreased breath sounds at bases , Non labored HEART: S1, S2. No gallops or murmurs. ABDOMEN: Soft bowel sounds present nontender , PD cath in place, no tenderness, no redness or discharge from exit site EXTREMITIES: No edema, no cyanosis. DERMATOLOGIC: Warm, dry. No generalized rash. 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 Acute hypoxic respiratory failure due to COVID-19 viral pneumonia. Diabetes mellitus. Morbid obesity. History of obstructive sleep apnea. Hypertension- BP stable COMMENT/RELEVANT DATA Meds Current Medications Medications (Trade) Dose Ordered Sig/Mya Start Time Stop Time Status Last Admin Dose Admin Acetaminophen (Tylenol) 650 mg PRN Q4HRS PRN 04/27/20 23:15 05/05/20 04:01 650 MG Amino Acids/ Glycerin/ Electrolytes 1,000 ml @ 80 mls/hr [id number] 05/04/20 10:15 05/07/20 12:31 DC 05/07/20 05:27 80 MLS/HR Ascorbic Acid (Vitamin C) 1,000 mg DAILY 04/28/20 13:00 04/30/20 08:57 DC 04/30/20 08:11 1,000 MG Atorvastatin Calcium (Lipitor) 40 mg QHS 04/27/20 21:00 04/30/20 08:57 DC 04/29/20 19:57 40 MG Azithromycin 250 ml @ 250 mls/hr 1X ONCE 04/26/20 23:00 04/26/20 23:59 DC 04/26/20 23:18 250 MLS/HR Carvedilol (Coreg) 25 mg BIDWMEALS 05/01/20 17:00 05/07/20 08:22 25 MG Ceftriaxone Sodium (Rocephin) 1 gm Q24H 04/28/20 13:00 05/03/20 09:20 DC 05/02/20 12:20 1 GM Cyclobenzaprine HCl (Flexeril) 10 mg PRN QID PRN 04/28/20 21:00 05/01/20 00:02 10 MG Dexamethasone (Decadron) 4 mg DAILYWBKFT 05/04/20 08:00 05/06/20 08:33 DC 05/06/20 08:15 4 MG Dextrose (Dextrose 50%-Water Syringe) 12.5 gm PRN Q15MIN PRN 04/27/20 04:00 05/03/20 18:50 25 GM Docusate Sodium (Colace) 100 mg BID 05/01/20 12:45 05/07/20 08:22 100 MG Doxycycline Hyclate (Vibra-Tab) 100 mg BID 04/28/20 13:00 05/03/20 09:20 DC 05/03/20 08:36 100 MG Duloxetine HCl (Cymbalta) 30 mg BID 04/27/20 09:00 05/07/20 08:23 30 MG Enoxaparin Sodium (Lovenox 30mg Syringe) 30 mg Q24H 04/28/20 13:00 04/28/20 12:38 DC Gabapentin (Neurontin) 600 mg QHS 04/27/20 04:30 05/06/20 21:24 600 MG Heparin Sodium (Porcine) (Heparin Sodium) 5,000 unit Q8HRS 04/28/20 14:00 05/07/20 08:24 5,000 UNIT Info (CONTRAST GIVEN -- Rx MONITORING) 1 each PRN DAILY PRN 04/26/20 20:45 04/28/20 20:44 DC Insulin Glargine (Lantus Syringe) 80 unit BID 05/05/20 09:00 05/07/20 08:25 80 UNIT Insulin Human Lispro (HumaLOG) 20 units PRN BFRMEALHC PRN 05/06/20 03:00 Iohexol (Omnipaque 350 Mg/ml) 100 ml 1X ONCE 04/26/20 20:45 04/26/20 20:46 DC 04/26/20 21:20 100 ML Lactobacillus Rhamnosus (Culturelle) 1 cap BID 04/29/20 21:00 05/07/20 08:23 1 CAP Lactulose (Lactulose) 20 gm PRN 1X PRN 05/03/20 13:45 Linagliptin (Tradjenta) 5 mg DAILY 04/27/20 09:00 05/07/20 08:23 5 MG Montelukast Sodium (Singulair) 10 mg HS 04/27/20 21:00 04/30/20 08:57 DC 04/29/20 19:57 10 MG Multivitamins (Thera M Plus) 1 tab DAILY 04/27/20 09:00 05/07/20 08:23 1 TAB Non-Formulary Medication (Gabapentin ) 600 mg HS 04/27/20 21:00 UNV Ondansetron HCl (Zofran Odt) 4 mg PRN Q6HRS PRN 04/28/20 12:15 04/28/20 12:34 4 MG Ondansetron HCl (Zofran) 4 mg PRN Q8HRS PRN 04/26/20 22:45 04/27/20 22:44 DC Pantoprazole Sodium (PROTONIX VIAL for IV PUSH) 40 mg DAILY 05/02/20 09:00 05/07/20 08:22 40 MG Potassium Chloride/Water 100 ml @ 100 mls/hr Q1H 05/01/20 15:00 05/01/20 18:59 DC 05/01/20 19:55 100 MLS/HR Potassium Chloride (Klor-Con) 20 meq DAILYWBKFT 05/02/20 08:00 05/07/20 08:23 20 MEQ Remdesivir 100 mg/ Sodium Chloride 230 ml @ 460 mls/hr Q24H 04/29/20 14:00 05/02/20 14:29 DC 05/02/20 14:27 460 MLS/HR Remdesivir 200 mg/ Sodium Chloride 210 ml @ 210 mls/hr 1X ONCE 04/28/20 14:00 04/28/20 14:59 DC 04/28/20 15:39 210 MLS/HR Sevelamer Carbonate (Renvela) 1,600 mg TIDWMEALS 05/02/20 17:00 05/07/20 12:36 1,600 MG Sodium Chloride 1,000 ml @ 1,000 mls/hr 1X ONCE 04/26/20 19:15 04/26/20 20:14 DC 04/26/20 19:17 1,000 MLS/HR Sterile Water (WATER for RESP) 1,000 ml CONT PRN 04/30/20 20:30 05/07/20 03:21 1,000 ML Temazepam (Restoril) 15 mg PRN QHS PRN 04/28/20 21:00 04/29/20 06:48 DC 04/28/20 22:48 15 MG Torsemide (Demadex) 40 mg [id number] 04/27/20 09:00 05/07/20 08:23 40 MG Vitamin B Complex/ Vitamin C (Kelly-Jalen) 1 tab DAILY 04/29/20 14:00 05/07/20 08:23 1 TAB Vitamin D (Vitamin D3) 500 unit DAILY 04/28/20 13:00 04/30/20 08:57 DC 04/30/20 08:10 500 UNIT Zinc Sulfate (Orazinc) 220 mg DAILY 04/28/20 13:00 05/07/20 08:23 220 MG Lab Laboratory Tests Test 05/06/20 17:39 05/06/20 21:27 05/07/20 08:35 05/07/20 12:43 Glucose (Fingerstick) 305 mg/dL (70-99) 403 mg/dL (70-99) 215 mg/dL (70-99) 178 mg/dL (70-99) Results All relevant outside records, renal labs, imaging studies, telemetry/EKG's were reviewed. Justicifation of Admission Dx: Justifications for Admission: Justification of Admission Dx: N/A FLORINA TRONCOSO MD May 07, 2020 13:24
--- NOTE | 2020-05-07 13:41 | PDOC ---
PULMONARY PROGRESS NOTES DATE: 05/07/20 TIME: 13:39 Subjective Pt. is now on vapotherm at 40 liters 90% feeling better today No overnight concerns from nursing Vitals Vital Signs Date Time Temp Pulse Resp B/P (MAP) Pulse Ox O2 Delivery O2 Flow Rate FiO2 05/07/20 12:00 98.5 87 18 145/69 (94) 93 Nasal Cannula 40.0 98.5 Comments Patient is seen during , visual exam performed on vapotherm No accessory muscle use no distress No obvious rash or edema General: Alert, No acute distress Labs Laboratory Tests Test 05/05/20 15:54 05/06/20 00:46 05/06/20 02:36 05/06/20 10:20 Glucose (Fingerstick) 175 mg/dL (70-99) 360 mg/dL (70-99) 418 mg/dL (70-99) Sodium Level 132 mmol/L (136-145) Potassium Level 3.8 mmol/L (3.5-5.1) Chloride Level 92 mmol/L (98-107) Carbon Dioxide Level 24 mmol/L (21-32) Anion Gap 16 (6-14) Blood Urea Nitrogen 125 mg/dL (7-20) Creatinine 4.5 mg/dL (0.6-1.0) Estimated GFR (Cockcroft-Gault) 10.1 Glucose Level 217 mg/dL (70-99) Calcium Level 9.0 mg/dL (8.5-10.1) Test 05/06/20 17:39 05/06/20 21:27 05/07/20 08:35 05/07/20 12:43 Glucose (Fingerstick) 305 mg/dL (70-99) 403 mg/dL (70-99) 215 mg/dL (70-99) 178 mg/dL (70-99) Laboratory Tests Test 05/06/20 17:39 05/06/20 21:27 05/07/20 08:35 05/07/20 12:43 Glucose (Fingerstick) 305 mg/dL (70-99) 403 mg/dL (70-99) 215 mg/dL (70-99) 178 mg/dL (70-99) Medications Active Scripts Medications Dose Route/Sig Max Daily Dose Days Date Category Dose Instructions Gabapentin 600 Mg Tablet 600 Mg PO HS 04/27/20 Reported Gabapentin (Gabapentin) 300 Mg Capsule 300 Mg PO DAILY 04/27/20 Reported Lantus Solostar (Insulin Glargine,Hum.rec.anlog) 100 Unit/1 Ml Insuln.pen 75 Unit SQ BID 09/19/19 Reported Januvia (Sitagliptin Phosphate) 25 Mg Tablet 25 Mg PO DAILY 09/19/19 Reported Novolog (Insulin Aspart) 100 Unit/1 Ml Cartridge 0 SQ TIDAC 01/26/19 Reported Sliding scale; patient has printout (at home) of scale. Unknown at this time. Singulair Tablet (Montelukast Sodium) 10 Mg Tablet 10 Mg PO HS 11/24/18 Reported Atorvastatin Calcium 40 Mg Tablet 1 Tab PO QHS 11/24/18 Reported Torsemide 20 Mg Tablet 2 Tab PO BID 11/24/18 Reported Cymbalta (Duloxetine Hcl) 30 Mg Capsule.dr 1 Cap PO BID 11/24/18 Reported Daily Jalen (Multivitamin) 1 Each Tablet 1 Each PO DAILY 11/24/18 Reported Comments CTA chest IMPRESSION: 1. No evidence of pulmonary thromboembolic disease. 2. Multifocal bilateral groundglass opacities and consolidations, consistent with patient's history of infection. 3. Dilated pulmonary trunk, which can be seen with pulmonary hypertension. Impression . IMPRESSION: 1. Acute hypoxemic respiratory failure secondary to COVID-19 viral pneumonia./ ALI/ARDS 2. COVID-[address] angiogram, no evidence of pulmonary embolism. 4. Chronic kidney disease, on peritoneal dialysis. 5. Morbid obesity. 6. Obstructive sleep apnea. 7. Hyperlipidemia. 8. Hypertension. Plan . PLAN: Continue supplemental oxygen to keep oxygen saturations greater than 92%, currently on Vapotherm 90% and 40 liters, Continues to slowly improve Follow chest x-ray/ABG prn has completed full course of steroids Follow ID recs for ABX, currently off ABX Completed Full course of remdesivir Follow nephrology recommendations in regards to peritoneal dialysis DVT/GI prophylaxis Discussed with RN and RT ESSENCE HERNANDEZ MD May 07, 2020 13:41
--- NOTE | 2020-05-07 14:51 | NUR ---
SS following up with discharge planning. SS reviewed pt chart and discussed with pt RN. Pt is currently on Vapotherm at 100%. COVID19 positive. Not stable. SS will continue to follow for discharge planning.
[2020-05-07] MEDS: GABAPENTIN 300 MG CAPSULE. PO SCH (20:38)
[2020-05-07] MEDS: ACETAMINOPHEN 325 MG TABLET. PO PRN (20:53)
[2020-05-07] MEDS: ONDANSETRON ODT 4 MG TAB.RAPDIS. PO PRN (22:57)
[2020-05-07] MEDS: LACTULOSE 20 GM/30 ML SOLUTION. PO PRN (23:34)
[2020-05-08] VITALS (24 sets, daily range): BP systolic 103–168; BP diastolic 60–94
[2020-05-08] MEDS: STERILE WATER for RESP 1,000 ML BAG. INH PRN ×2 (02:29→14:59)
[2020-05-08] MEDS: HEPARIN for SUB-Q USE 5,000 UNIT/ML VIAL. SQ SCH ×3 (05:58→20:32)
[2020-05-08] MEDS: ONDANSETRON ODT 4 MG TAB.RAPDIS. PO PRN (06:15)
[2020-05-08] MEDS: PANTOPRAZOLE 40 MG TABLET.DR. PO SCH ×2 (07:30→07:48)
[2020-05-08] MEDS: LACTOBACILLUS RHAMNOSUS GG 1 CAPSULE. PO SCH ×3 (07:49→20:30)
[2020-05-08] MEDS: CARVEDILOL 12.5 MG TABLET. PO SCH ×3 (07:49→16:25)
[2020-05-08] MEDS: DOCUSATE SODIUM 100 MG CAPSULE. PO SCH ×3 (07:49→20:30)
[2020-05-08] MEDS: DULoxetine HCL 30 MG CAPSULE.DR PO SCH ×3 (07:50→20:31)
[2020-05-08] MEDS: FOLIC/VIT B COMP W-C (RENAL) TABLET. PO SCH ×2 (07:50→09:00)
[2020-05-08] MEDS: TORSEMIDE 20 MG TABLET. PO SCH ×3 (07:50→16:00)
[2020-05-08] MEDS: LINAGLIPTIN 5 MG TABLET PO SCH ×2 (07:51→09:00)
[2020-05-08] MEDS: MULTIVITAMIN with MINERAL TABLET. PO SCH ×2 (07:51→09:00)
[2020-05-08] MEDS: POTASSIUM CHLORIDE 20 MEQ TABLET.ER. PO SCH ×2 (07:51→08:00)
[2020-05-08] MEDS: SEVELAMER CARBONATE 800 MG TABLET. PO SCH ×3 (08:00→16:27)
--- NOTE | 2020-05-08 08:00 | PDOC ---
Infectious Disease Note Subjective: Subjective Patient feels better Remains on Vapotherm No fevers Has constipation Vital Signs: Vital Signs Vital Signs Date Time Temp Pulse Resp B/P (MAP) Pulse Ox O2 Delivery O2 Flow Rate FiO2 05/08/20 07:49 89 127/62 05/08/20 06:00 21 91 Vapotherm 40.0 05/08/20 04:00 98.5 98.5 Physical Exam: PHYSICAL EXAM GENERAL: Patient on BiPAP, arousable HEENT: Normocephalic, atraumatic. Anicteric. No thrush. NECK: Supple, no JVD. LUNGS: Decreased breath sounds. No wheezing. HEART: S1, S2. No gallops or murmurs. ABDOMEN: Soft bowel sounds present nontender nondistended EXTREMITIES: No edema, no cyanosis. DERMATOLOGIC: Warm, dry. No generalized rash. NEUROLOGIC: Sleepy but arousable, Medications: Inpatient Meds: Current Medications Medications (Trade) Dose Ordered Sig/Mya Start Time Stop Time Status Last Admin Dose Admin Acetaminophen (Tylenol) 650 mg PRN Q4HRS PRN 04/27/20 23:15 05/07/20 20:53 650 MG Amino Acids/ Glycerin/ Electrolytes 1,000 ml @ 80 mls/hr [id number] 05/04/20 10:15 05/07/20 12:31 DC 05/07/20 05:27 80 MLS/HR Ascorbic Acid (Vitamin C) 1,000 mg DAILY 04/28/20 13:00 04/30/20 08:57 DC 04/30/20 08:11 1,000 MG Atorvastatin Calcium (Lipitor) 40 mg QHS 04/27/20 21:00 04/30/20 08:57 DC 04/29/20 19:57 40 MG Azithromycin 250 ml @ 250 mls/hr 1X ONCE 04/26/20 23:00 04/26/20 23:59 DC 04/26/20 23:18 250 MLS/HR Carvedilol (Coreg) 25 mg BIDWMEALS 05/01/20 17:00 05/08/20 07:49 25 MG Ceftriaxone Sodium (Rocephin) 1 gm Q24H 04/28/20 13:00 05/03/20 09:20 DC 05/02/20 12:20 1 GM Cyclobenzaprine HCl (Flexeril) 10 mg PRN QID PRN 04/28/20 21:00 05/01/20 00:02 10 MG Dexamethasone (Decadron) 4 mg DAILYWBKFT 05/04/20 08:00 05/06/20 08:33 DC 05/06/20 08:15 4 MG Dextrose (Dextrose 50%-Water Syringe) 12.5 gm PRN Q15MIN PRN 04/27/20 04:00 05/03/20 18:50 25 GM Docusate Sodium (Colace) 100 mg BID 05/01/20 12:45 05/08/20 07:49 100 MG Doxycycline Hyclate (Vibra-Tab) 100 mg BID 04/28/20 13:00 05/03/20 09:20 DC 05/03/20 08:36 100 MG Duloxetine HCl (Cymbalta) 30 mg BID 04/27/20 09:00 05/08/20 07:50 30 MG Enoxaparin Sodium (Lovenox 30mg Syringe) 30 mg Q24H 04/28/20 13:00 04/28/20 12:38 DC Gabapentin (Neurontin) 600 mg QHS 04/27/20 04:30 05/07/20 20:38 600 MG Heparin Sodium (Porcine) (Heparin Sodium) 5,000 unit Q8HRS 04/28/20 14:00 05/08/20 05:58 5,000 UNIT Info (CONTRAST GIVEN -- Rx MONITORING) 1 each PRN DAILY PRN 04/26/20 20:45 04/28/20 20:44 DC Insulin Glargine (Lantus Syringe) 80 unit BID 05/05/20 09:00 05/07/20 08:25 80 UNIT Insulin Human Lispro (HumaLOG) 20 units PRN BFRMEALHC PRN 05/06/20 03:00 Iohexol (Omnipaque 350 Mg/ml) 100 ml 1X ONCE 04/26/20 20:45 04/26/20 20:46 DC 04/26/20 21:20 100 ML Lactobacillus Rhamnosus (Culturelle) 1 cap BID 04/29/20 21:00 05/08/20 07:49 1 CAP Lactulose (Lactulose) 20 gm PRN 1X PRN 05/03/20 13:45 05/07/20 23:34 20 GM Linagliptin (Tradjenta) 5 mg DAILY 04/27/20 09:00 05/08/20 07:51 5 MG Montelukast Sodium (Singulair) 10 mg HS 04/27/20 21:00 04/30/20 08:57 DC 04/29/20 19:57 10 MG Multivitamins (Thera M Plus) 1 tab DAILY 04/27/20 09:00 05/08/20 07:51 1 TAB Non-Formulary Medication (Gabapentin ) 600 mg HS 04/27/20 21:00 UNV Ondansetron HCl (Zofran Odt) 4 mg PRN Q6HRS PRN 04/28/20 12:15 05/08/20 06:15 4 MG Ondansetron HCl (Zofran) 4 mg PRN Q8HRS PRN 04/26/20 22:45 04/27/20 22:44 DC Pantoprazole Sodium (PROTONIX VIAL for IV PUSH) 40 mg DAILY 05/02/20 09:00 05/07/20 15:25 DC 05/07/20 08:22 40 MG Pantoprazole Sodium (Protonix) 40 mg DAILYAC 05/08/20 07:30 05/08/20 07:48 40 MG Potassium Chloride/Water 100 ml @ 100 mls/hr Q1H 05/01/20 15:00 05/01/20 18:59 DC 05/01/20 19:55 100 MLS/HR Potassium Chloride (Klor-Con) 20 meq DAILYWBKFT 05/02/20 08:00 05/08/20 07:51 20 MEQ Remdesivir 100 mg/ Sodium Chloride 230 ml @ 460 mls/hr Q24H 04/29/20 14:00 05/02/20 14:29 DC 05/02/20 14:27 460 MLS/HR Remdesivir 200 mg/ Sodium Chloride 210 ml @ 210 mls/hr 1X ONCE 04/28/20 14:00 04/28/20 14:59 DC 04/28/20 15:39 210 MLS/HR Sevelamer Carbonate (Renvela) 1,600 mg TIDWMEALS 05/02/20 17:00 05/07/20 17:28 1,600 MG Sodium Chloride 1,000 ml @ 1,000 mls/hr 1X ONCE 04/26/20 19:15 04/26/20 20:14 DC 04/26/20 19:17 1,000 MLS/HR Sterile Water (WATER for RESP) 1,000 ml CONT PRN 04/30/20 20:30 05/08/20 02:29 1,000 ML Temazepam (Restoril) 15 mg PRN QHS PRN 04/28/20 21:00 04/29/20 06:48 DC 04/28/20 22:48 15 MG Torsemide (Demadex) 40 mg [id number] 04/27/20 09:00 05/08/20 07:50 40 MG Vitamin B Complex/ Vitamin C (Kelly-Jalen) 1 tab DAILY 04/29/20 14:00 05/08/20 07:50 1 TAB Vitamin D (Vitamin D3) 500 unit DAILY 04/28/20 13:00 04/30/20 08:57 DC 04/30/20 08:10 500 UNIT Zinc Sulfate (Orazinc) 220 mg DAILY 04/28/20 13:00 05/07/20 08:23 220 MG Labs: Lab Laboratory Tests Test 05/07/20 08:35 05/07/20 12:43 05/07/20 18:47 05/07/20 20:47 Glucose (Fingerstick) 215 mg/dL (70-99) 178 mg/dL (70-99) 170 mg/dL (70-99) 141 mg/dL (70-99) Objective: Assessment: 1. COVID-19 infection. 2. Acute hypoxic respiratory failure due to COVID-19 viral pneumonia. 3. Chronic kidney disease, on peritoneal dialysis. 4. Diabetes mellitus. 5. Morbid obesity. 6. History of obstructive sleep apnea. 7. Hyperlipidemia, hypertension. Plan: Plan of Care Continue supportive care Status post remdesivir steroids DC'd. Monitor off antibiotics We will sign off Call with any questions STANTON ALBERT MD May 08, 2020 08:00
--- NOTE | 2020-05-08 08:28 | PDOC ---
Provider Note Date of Service: DATE: 05/08/20 TIME: 08:27 Provider Note glucose lower off decadron, last lantus 24 hrs ago, will educe to 80 daily and follow-has not needed humalog in > 48 hrs Justifications for Admission Other Justification VERNA GARCIA MD May 08, 2020 08:28
[2020-05-08] MEDS ORDERED: INSULIN GLARGINE SYRINGE. SQ SCH (09:00)
[2020-05-08] MEDS: ZINC SULFATE 220 MG CAPSULE. PO SCH (09:00)
--- NOTE | 2020-05-08 09:44 | PDOC ---
DATE OF SERVICE DATE: 05/08/20 TIME: 09:26 SUBJECTIVE ROS c/o mild nausea , not much appetite, remains on vapotherm OBJECTIVE Vital Signs Vital Signs Date Time Temp Pulse Resp B/P (MAP) Pulse Ox O2 Delivery O2 Flow Rate FiO2 05/08/20 08:07 92 VAPOTHERM 40.0 05/08/20 06:00 87 21 141/77 (98) 05/08/20 04:00 98.5 98.5 I & 0 Intake and Output 05/08/20 07:00 Intake Total 1600 ml Output Total 1875 ml Balance -275 ml Intake Oral 1600 ml Output Urine Total 1875 ml # Bowel Movements 1 PHYSICAL EXAM Physical Exam GENERAL: NAD HEENT: Anicteric. on vapotherm NECK: Supple, no JVD. LUNGS: Decreased breath sounds. No wheezing. HEART: S1, S2. No gallops or murmurs. ABDOMEN: Soft bowel sounds present nontender , PD catheter + , no redness or discharge from exit site per waist presser EXTREMITIES: No edema, no cyanosis. DERMATOLOGIC: Warm, dry. No generalized rash. NEUROLOGIC: awake, alert Toro + DIAGNOSIS/ASSESSMENT Assessment & Plan ESRD - on peritoneal dialysis at [facility]; has some RRF seen on PD, tolerating well, No concerns voiced by waist presser, PD fluid clear except for some fibrin , UF 900 mls Excellent UOP , APD today with 1 x 2.5%; 1 x 1.5% (at home uses 2 x2.5%) , Discussed with waist presser COVID-19 infection- Status post remdesivir, steroids DC'd. Acute hypoxic respiratory failure due to COVID-19 viral pneumonia- on Vapotherm Diabetes mellitus. Morbid obesity. History of obstructive sleep apnea. Hypertension- BP stable COMMENT/RELEVANT DATA Meds Current Medications Medications (Trade) Dose Ordered Sig/Mya Start Time Stop Time Status Last Admin Dose Admin Acetaminophen (Tylenol) 650 mg PRN Q4HRS PRN 04/27/20 23:15 05/07/20 20:53 650 MG Amino Acids/ Glycerin/ Electrolytes 1,000 ml @ 80 mls/hr [id number] 05/04/20 10:15 05/07/20 12:31 DC 05/07/20 05:27 80 MLS/HR Ascorbic Acid (Vitamin C) 1,000 mg DAILY 04/28/20 13:00 04/30/20 08:57 DC 04/30/20 08:11 1,000 MG Atorvastatin Calcium (Lipitor) 40 mg QHS 04/27/20 21:00 04/30/20 08:57 DC 04/29/20 19:57 40 MG Azithromycin 250 ml @ 250 mls/hr 1X ONCE 04/26/20 23:00 04/26/20 23:59 DC 04/26/20 23:18 250 MLS/HR Carvedilol (Coreg) 25 mg BIDWMEALS 05/01/20 17:00 05/07/20 17:27 25 MG Ceftriaxone Sodium (Rocephin) 1 gm Q24H 04/28/20 13:00 05/03/20 09:20 DC 05/02/20 12:20 1 GM Cyclobenzaprine HCl (Flexeril) 10 mg PRN QID PRN 04/28/20 21:00 05/01/20 00:02 10 MG Dexamethasone (Decadron) 4 mg DAILYWBKFT 05/04/20 08:00 05/06/20 08:33 DC 05/06/20 08:15 4 MG Dextrose (Dextrose 50%-Water Syringe) 12.5 gm PRN Q15MIN PRN 04/27/20 04:00 05/03/20 18:50 25 GM Docusate Sodium (Colace) 100 mg BID 05/01/20 12:45 05/07/20 20:38 100 MG Doxycycline Hyclate (Vibra-Tab) 100 mg BID 04/28/20 13:00 05/03/20 09:20 DC 05/03/20 08:36 100 MG Duloxetine HCl (Cymbalta) 30 mg BID 04/27/20 09:00 05/07/20 20:39 30 MG Enoxaparin Sodium (Lovenox 30mg Syringe) 30 mg Q24H 04/28/20 13:00 04/28/20 12:38 DC Gabapentin (Neurontin) 600 mg QHS 04/27/20 04:30 05/07/20 20:38 600 MG Heparin Sodium (Porcine) (Heparin Sodium) 5,000 unit Q8HRS 04/28/20 14:00 05/08/20 05:58 5,000 UNIT Info (CONTRAST GIVEN -- Rx MONITORING) 1 each PRN DAILY PRN 04/26/20 20:45 04/28/20 20:44 DC Insulin Glargine (Lantus Syringe) 80 unit DAILY 05/08/20 09:00 Insulin Human Lispro (HumaLOG) 20 units PRN BFRMEALHC PRN 05/06/20 03:00 Iohexol (Omnipaque 350 Mg/ml) 100 ml 1X ONCE 04/26/20 20:45 04/26/20 20:46 DC 04/26/20 21:20 100 ML Lactobacillus Rhamnosus (Culturelle) 1 cap BID 04/29/20 21:00 05/07/20 20:38 1 CAP Lactulose (Lactulose) 20 gm PRN 1X PRN 05/03/20 13:45 05/07/20 23:34 20 GM Linagliptin (Tradjenta) 5 mg DAILY 04/27/20 09:00 05/07/20 08:23 5 MG Montelukast Sodium (Singulair) 10 mg HS 04/27/20 21:00 04/30/20 08:57 DC 04/29/20 19:57 10 MG Multivitamins (Thera M Plus) 1 tab DAILY 04/27/20 09:00 05/07/20 08:23 1 TAB Non-Formulary Medication (Gabapentin ) 600 mg HS 04/27/20 21:00 UNV Ondansetron HCl (Zofran Odt) 4 mg PRN Q6HRS PRN 04/28/20 12:15 05/08/20 06:15 4 MG Ondansetron HCl (Zofran) 4 mg PRN Q8HRS PRN 04/26/20 22:45 04/27/20 22:44 DC Pantoprazole Sodium (PROTONIX VIAL for IV PUSH) 40 mg DAILY 05/02/20 09:00 05/07/20 15:25 DC 05/07/20 08:22 40 MG Pantoprazole Sodium (Protonix) 40 mg DAILYAC 05/08/20 07:30 Potassium Chloride/Water 100 ml @ 100 mls/hr Q1H 05/01/20 15:00 05/01/20 18:59 DC 05/01/20 19:55 100 MLS/HR Potassium Chloride (Klor-Con) 20 meq DAILYWBKFT 05/02/20 08:00 05/07/20 08:23 20 MEQ Remdesivir 100 mg/ Sodium Chloride 230 ml @ 460 mls/hr Q24H 04/29/20 14:00 05/02/20 14:29 DC 05/02/20 14:27 460 MLS/HR Remdesivir 200 mg/ Sodium Chloride 210 ml @ 210 mls/hr 1X ONCE 04/28/20 14:00 04/28/20 14:59 DC 04/28/20 15:39 210 MLS/HR Sevelamer Carbonate (Renvela) 1,600 mg TIDWMEALS 05/02/20 17:00 05/07/20 17:28 1,600 MG Sodium Chloride 1,000 ml @ 1,000 mls/hr 1X ONCE 04/26/20 19:15 04/26/20 20:14 DC 04/26/20 19:17 1,000 MLS/HR Sterile Water (WATER for RESP) 1,000 ml CONT PRN 04/30/20 20:30 05/08/20 02:29 1,000 ML Temazepam (Restoril) 15 mg PRN QHS PRN 04/28/20 21:00 04/29/20 06:48 DC 04/28/20 22:48 15 MG Torsemide (Demadex) 40 mg [id number] 04/27/20 09:00 05/07/20 17:27 40 MG Vitamin B Complex/ Vitamin C (Kelly-Jalen) 1 tab DAILY 04/29/20 14:00 05/07/20 08:23 1 TAB Vitamin D (Vitamin D3) 500 unit DAILY 04/28/20 13:00 04/30/20 08:57 DC 04/30/20 08:10 500 UNIT Zinc Sulfate (Orazinc) 220 mg DAILY 04/28/20 13:00 05/07/20 08:23 220 MG Lab Laboratory Tests Test 05/07/20 12:43 05/07/20 18:47 05/07/20 20:47 05/08/20 07:55 Glucose (Fingerstick) 178 mg/dL (70-99) 170 mg/dL (70-99) 141 mg/dL (70-99) 130 mg/dL (70-99) Results All relevant outside records, renal labs, imaging studies, telemetry/EKG's were reviewed. Justicifation of Admission Dx: Justifications for Admission: Justification of Admission Dx: N/A FLORINA TRONCOSO MD May 08, 2020 09:44
[2020-05-08] MEDS: NYSTATIN TOPICAL POWDER 15GM BOTTLE. TP SCH ×2 (10:00→20:31)
--- NOTE | 2020-05-08 10:38 | PDOC ---
PULMONARY PROGRESS NOTES DATE: 05/08/20 TIME: 10:36 Subjective Pt. is now on vapotherm at 40 liters 90% Patient reports diarrhea and gas overnight and poor p.o. intake this morning Low-grade fever overnight No overnight concerns from nursing Vitals Vital Signs Date Time Temp Pulse Resp B/P (MAP) Pulse Ox O2 Delivery O2 Flow Rate FiO2 05/08/20 10:00 95 32 138/68 (91) 85 vapotherm 40.0 05/08/20 07:00 99.0 99.0 Comments Patient is seen during pandemic, visual exam performed on vapotherm No accessory muscle use no distress No obvious rash or edema General: Alert, No acute distress Skin: Rash (Groin) Labs Laboratory Tests Test 05/06/20 17:39 05/06/20 21:27 05/07/20 08:35 05/07/20 12:43 Glucose (Fingerstick) 305 mg/dL (70-99) 403 mg/dL (70-99) 215 mg/dL (70-99) 178 mg/dL (70-99) Test 05/07/20 18:47 05/07/20 20:47 05/08/20 07:55 Glucose (Fingerstick) 170 mg/dL (70-99) 141 mg/dL (70-99) 130 mg/dL (70-99) Laboratory Tests Test 05/07/20 12:43 05/07/20 18:47 05/07/20 20:47 05/08/20 07:55 Glucose (Fingerstick) 178 mg/dL (70-99) 170 mg/dL (70-99) 141 mg/dL (70-99) 130 mg/dL (70-99) Medications Active Scripts Medications Dose Route/Sig Max Daily Dose Days Date Category Dose Instructions Gabapentin 600 Mg Tablet 600 Mg PO HS 04/27/20 Reported Gabapentin (Gabapentin) 300 Mg Capsule 300 Mg PO DAILY 04/27/20 Reported Lantus Solostar (Insulin Glargine,Hum.rec.anlog) 100 Unit/1 Ml Insuln.pen 75 Unit SQ BID 09/19/19 Reported Januvia (Sitagliptin Phosphate) 25 Mg Tablet 25 Mg PO DAILY 09/19/19 Reported Novolog (Insulin Aspart) 100 Unit/1 Ml Cartridge 0 SQ TIDAC 01/26/19 Reported Sliding scale; patient has printout (at home) of scale. Unknown at this time. Singulair Tablet (Montelukast Sodium) 10 Mg Tablet 10 Mg PO HS 11/24/18 Reported Atorvastatin Calcium 40 Mg Tablet 1 Tab PO QHS 11/24/18 Reported Torsemide 20 Mg Tablet 2 Tab PO BID 11/24/18 Reported Cymbalta (Duloxetine Hcl) 30 Mg Capsule.dr 1 Cap PO BID 11/24/18 Reported Daily Jalen (Multivitamin) 1 Each Tablet 1 Each PO DAILY 11/24/18 Reported Comments CTA chest IMPRESSION: 1. No evidence of pulmonary thromboembolic disease. 2. Multifocal bilateral groundglass opacities and consolidations, consistent with patient's history of infection. 3. Dilated pulmonary trunk, which can be seen with pulmonary hypertension. Impression . IMPRESSION: 1. Acute hypoxemic respiratory failure secondary to COVID-19 viral pneumonia./ ALI/ARDS 2. COVID-[address] angiogram, no evidence of pulmonary embolism. 4. Chronic kidney disease, on peritoneal dialysis. 5. Morbid obesity. 6. Obstructive sleep apnea. 7. Hyperlipidemia. 8. Hypertension. Plan . PLAN: Continue supplemental oxygen to keep oxygen saturations greater than 92%, cu rrently on Vapotherm 90% and 40 liters, Follow chest x-ray/ABG prn has completed full course of steroids Follow ID recs for ABX, currently off ABX Completed Full course of remdesivir Follow nephrology recommendations in regards to peritoneal dialysis Start nystatin for acute candidal rash to groin Physical therapy/Occupational Therapy DVT/GI prophylaxis Discussed with RN and RT ESSENCE HERNANDEZ MD May 08, 2020 10:37
--- NOTE | 2020-05-08 16:15 | NUR ---
SS following up with discharge planning. SS reviewed pt chart and discussed with pt RN. Pt is currently on Vapotherm at 100%. COVID19 positive. PT/OT ordered. Pt on peritoneal dialysis. Not stable. SS will continue to follow for discharge planning.
[2020-05-08] MEDS: GABAPENTIN 300 MG CAPSULE. PO SCH (20:30)
[2020-05-08] MEDS: ACETAMINOPHEN 325 MG TABLET. PO PRN (20:30)
[2020-05-08] MEDS: CYCLOBENZAPRINE 10 MG TABLET. PO PRN (20:30)
[2020-05-08] MEDS ORDERED: NYSTATIN TOPICAL POWDER 15GM BOTTLE. TP SCH (21:00)
[2020-05-09] VITALS (23 sets, daily range): BP systolic 103–154; BP diastolic 57–92
[2020-05-09] MEDS: STERILE WATER for RESP 1,000 ML BAG. INH PRN (03:23)
[2020-05-09] MEDS: HEPARIN for SUB-Q USE 5,000 UNIT/ML VIAL. SQ SCH ×3 (05:57→21:19)
[2020-05-09 07:45] LABS: BASO # 0.1 x10^3/uL (0.0-0.2); BASO % 1 % (0-3); EOS # 0.4 x10^3/uL (0.0-0.7); EOS % 5 % (0-3); HEMATOCRIT 36.4 % (36.0-47.0); HEMOGLOBIN 11.9 g/dL (12.0-15.5); LYMPH # 0.9 x10^3/uL (1.0-4.8); LYMPH % 10 % (24-48); MEAN CORPUSCULAR HEMOGLOBIN 32 pg (25-35); MEAN CORPUSCULAR HGB CONC 33 g/dL (31-37); MEAN CORPUSCULAR VOLUME 98 fL (79-100); MONO # 0.5 x10^3/uL (0.0-1.1); MONO % 5 % (0-9); NEUT # 6.9 x10^3/uL (1.8-7.7); NEUT % 79 % (31-73); PLATELET COUNT 314 x10^3/uL (140-400); RED BLOOD COUNT 3.71 x10^6/uL (3.50-5.40); RED CELL DISTRIBUTION WIDTH 17.1 % (11.5-14.5); WHITE BLOOD COUNT 8.8 x10^3/uL (4.0-11.0)
[2020-05-09] MEDS: LACTOBACILLUS RHAMNOSUS GG 1 CAPSULE. PO SCH ×2 (08:08→21:20)
[2020-05-09] MEDS: MULTIVITAMIN with MINERAL TABLET. PO SCH (08:08)
[2020-05-09] MEDS: TORSEMIDE 20 MG TABLET. PO SCH ×2 (08:08→16:29)
[2020-05-09] MEDS: ONDANSETRON ODT 4 MG TAB.RAPDIS. PO PRN (08:08)
[2020-05-09] MEDS: ZINC SULFATE 220 MG CAPSULE. PO SCH (08:08)
[2020-05-09] MEDS: SEVELAMER CARBONATE 800 MG TABLET. PO SCH ×3 (08:08→16:29)
[2020-05-09] MEDS: FOLIC/VIT B COMP W-C (RENAL) TABLET. PO SCH (08:08)
[2020-05-09] MEDS: DOCUSATE SODIUM 100 MG CAPSULE. PO SCH ×2 (08:09→21:20)
[2020-05-09] MEDS: LINAGLIPTIN 5 MG TABLET PO SCH (08:09)
[2020-05-09] MEDS: PANTOPRAZOLE 40 MG TABLET.DR. PO SCH (08:09)
[2020-05-09] MEDS: CARVEDILOL 12.5 MG TABLET. PO SCH ×2 (08:09→16:29)
[2020-05-09] MEDS: DULoxetine HCL 30 MG CAPSULE.DR PO SCH ×2 (08:09→21:19)
[2020-05-09] MEDS: POTASSIUM CHLORIDE 20 MEQ TABLET.ER. PO SCH (08:09)
[2020-05-09 08:15] LABS: ALBUMIN 1.9 g/dL (3.4-5.0); ALBUMIN/GLOBULIN RATIO 0.4 (1.0-1.7); CALCIUM 9.7 mg/dL (8.5-10.1); CREATININE 4.5 mg/dL (0.6-1.0); GFR 10.1; PHOSPHORUS 6.9 mg/dL (2.6-4.7); POTASSIUM 4.2 mmol/L (3.5-5.1); TOTAL BILIRUBIN 0.4 mg/dL (0.2-1.0); TOTAL PROTEIN 7.3 g/dL (6.4-8.2)
[2020-05-09] MEDS: NYSTATIN TOPICAL POWDER 15GM BOTTLE. TP SCH ×2 (09:00→21:00)
--- NOTE | 2020-05-09 09:07 | PDOC ---
Provider Note Date of Service: DATE: 05/09/20 TIME: 09:06 Provider Note glucose lower despite 50% less lantus, reduce from 80 to 60 u now, rest same Justifications for Admission Other Justification VERNA GARCIA MD May 09, 2020 09:07
--- NOTE | 2020-05-09 09:15 | PDOC ---
DATE OF SERVICE DATE: 05/09/20 TIME: 09:10 SUBJECTIVE ROS stable OBJECTIVE Vital Signs Vital Signs Date Time Temp Pulse Resp B/P (MAP) Pulse Ox O2 Delivery O2 Flow Rate FiO2 05/09/20 08:38 92 VAPOTHERM 40.0 05/09/20 08:09 93 154/82 05/09/20 08:00 98.4 13 98.4 I & 0 Intake and Output 05/09/20 07:00 Intake Total 285 ml Output Total 400 ml Balance -115 ml Intake Oral 285 ml Output Urine Total 400 ml # Bowel Movements 2 PHYSICAL EXAM Physical Exam GENERAL: NAD HEENT: Anicteric. on vapotherm NECK: Supple, no JVD. LUNGS: Decreased breath sounds. No wheezing. HEART: S1, S2. No gallops or murmurs. ABDOMEN: Soft bowel sounds present nontender , PD catheter + , no redness or discharge from exit site per bell spinner EXTREMITIES: No edema, no cyanosis. DERMATOLOGIC: Warm, dry. No generalized rash. NEUROLOGIC: awake, alert Tor[place] + DIAGNOSIS/ASSESSMENT Assessment & Plan ESRD - on peritoneal dialysis at [facility]; has some RRF seen on PD, tolerating well, No concerns voiced by bell spinner, has significant RRFno last fill, APD with 2 x 1.5% (at home uses 2 x2.5%) , Discussed with bell spinner Azotemia- BUN up 2/2 Steroids, decd on 05/06, monitor COVID-19 infection- Status post remdesivir, steroids DC'd. Acute hypoxic respiratory failure due to COVID-19 viral pneumonia- on Vapotherm Diabetes mellitus. Morbid obesity. History of obstructive sleep apnea. Hypertension- BP stable COMMENT/RELEVANT DATA Meds Current Medications Medications (Trade) Dose Ordered Sig/Mya Start Time Stop Time Status Last Admin Dose Admin Acetaminophen (Tylenol) 650 mg PRN Q4HRS PRN 04/27/20 23:15 05/08/20 20:30 650 MG Amino Acids/ Glycerin/ Electrolytes 1,000 ml @ 80 mls/hr [id number] 05/04/20 10:15 05/07/20 12:31 DC 05/07/20 05:27 80 MLS/HR Ascorbic Acid (Vitamin C) 1,000 mg DAILY 04/28/20 13:00 04/30/20 08:57 DC 04/30/20 08:11 1,000 MG Atorvastatin Calcium (Lipitor) 40 mg QHS 04/27/20 21:00 04/30/20 08:57 DC 04/29/20 19:57 40 MG Azithromycin 250 ml @ 250 mls/hr 1X ONCE 04/26/20 23:00 04/26/20 23:59 DC 04/26/20 23:18 250 MLS/HR Carvedilol (Coreg) 25 mg BIDWMEALS 05/01/20 17:00 05/09/20 08:09 25 MG Ceftriaxone Sodium (Rocephin) 1 gm Q24H 04/28/20 13:00 05/03/20 09:20 DC 05/02/20 12:20 1 GM Cyclobenzaprine HCl (Flexeril) 10 mg PRN QID PRN 04/28/20 21:00 05/08/20 20:30 10 MG Dexamethasone (Decadron) 4 mg DAILYWBKFT 05/04/20 08:00 05/06/20 08:33 DC 05/06/20 08:15 4 MG Dextrose (Dextrose 50%-Water Syringe) 12.5 gm PRN Q15MIN PRN 04/27/20 04:00 05/03/20 18:50 25 GM Docusate Sodium (Colace) 100 mg BID 05/01/20 12:45 05/09/20 08:09 100 MG Doxycycline Hyclate (Vibra-Tab) 100 mg BID 04/28/20 13:00 05/03/20 09:20 DC 05/03/20 08:36 100 MG Duloxetine HCl (Cymbalta) 30 mg BID 04/27/20 09:00 05/09/20 08:09 30 MG Enoxaparin Sodium (Lovenox 30mg Syringe) 30 mg Q24H 04/28/20 13:00 04/28/20 12:38 DC Gabapentin (Neurontin) 600 mg QHS 04/27/20 04:30 05/08/20 20:30 600 MG Heparin Sodium (Porcine) (Heparin Sodium) 5,000 unit Q8HRS 04/28/20 14:00 05/09/20 05:57 5,000 UNIT Info (CONTRAST GIVEN -- Rx MONITORING) 1 each PRN DAILY PRN 04/26/20 20:45 04/28/20 20:44 DC Insulin Glargine (Lantus Syringe) 60 unit DAILY 05/09/20 09:15 UNV Insulin Human Lispro (HumaLOG) 20 units PRN BFRMEALHC PRN 05/06/20 03:00 Iohexol (Omnipaque 350 Mg/ml) 100 ml 1X ONCE 04/26/20 20:45 04/26/20 20:46 DC 04/26/20 21:20 100 ML Lactobacillus Rhamnosus (Culturelle) 1 cap BID 04/29/20 21:00 05/09/20 08:08 1 CAP Lactulose (Lactulose) 20 gm PRN 1X PRN 05/03/20 13:45 05/07/20 23:34 20 GM Linagliptin (Tradjenta) 5 mg DAILY 04/27/20 09:00 05/09/20 08:09 5 MG Montelukast Sodium (Singulair) 10 mg HS 04/27/20 21:00 04/30/20 08:57 DC 04/29/20 19:57 10 MG Multivitamins (Thera M Plus) 1 tab DAILY 04/27/20 09:00 05/09/20 08:08 1 TAB Non-Formulary Medication (Gabapentin ) 600 mg HS 04/27/20 21:00 UNV Nystatin (Nystop) 1 jackie BID 05/08/20 21:00 UNV Ondansetron HCl (Zofran Odt) 4 mg PRN Q6HRS PRN 04/28/20 12:15 05/09/20 08:08 4 MG Ondansetron HCl (Zofran) 4 mg PRN Q8HRS PRN 04/26/20 22:45 04/27/20 22:44 DC Pantoprazole Sodium (PROTONIX VIAL for IV PUSH) 40 mg DAILY 05/02/20 09:00 05/07/20 15:25 DC 05/07/20 08:22 40 MG Pantoprazole Sodium (Protonix) 40 mg DAILYAC 05/08/20 07:30 05/09/20 08:09 40 MG Potassium Chloride/Water 100 ml @ 100 mls/hr Q1H 05/01/20 15:00 05/01/20 18:59 DC 05/01/20 19:55 100 MLS/HR Potassium Chloride (Klor-Con) 20 meq DAILYWBKFT 05/02/20 08:00 05/09/20 08:09 20 MEQ Remdesivir 100 mg/ Sodium Chloride 230 ml @ 460 mls/hr Q24H 04/29/20 14:00 05/02/20 14:29 DC 05/02/20 14:27 460 MLS/HR Remdesivir 200 mg/ Sodium Chloride 210 ml @ 210 mls/hr 1X ONCE 04/28/20 14:00 04/28/20 14:59 DC 04/28/20 15:39 210 MLS/HR Sevelamer Carbonate (Renvela) 1,600 mg TIDWMEALS 05/02/20 17:00 05/09/20 08:08 1,600 MG Sodium Chloride 1,000 ml @ 1,000 mls/hr 1X ONCE 04/26/20 19:15 04/26/20 20:14 DC 04/26/20 19:17 1,000 MLS/HR Sterile Water (WATER for RESP) 1,000 ml CONT PRN 04/30/20 20:30 05/09/20 03:23 1,000 ML Temazepam (Restoril) 15 mg PRN QHS PRN 04/28/20 21:00 04/29/20 06:48 DC 04/28/20 22:48 15 MG Torsemide (Demadex) 40 mg [id number] 04/27/20 09:00 05/09/20 08:08 40 MG Vitamin B Complex/ Vitamin C (Kelly-Jalen) 1 tab DAILY 04/29/20 14:00 05/09/20 08:08 1 TAB Vitamin D (Vitamin D3) 500 unit DAILY 04/28/20 13:00 04/30/20 08:57 DC 04/30/20 08:10 500 UNIT Zinc Sulfate (Orazinc) 220 mg DAILY 04/28/20 13:00 05/09/20 08:08 220 MG Lab Laboratory Tests Test 05/08/20 12:11 05/08/20 16:47 05/08/20 21:17 05/09/20 07:15 Glucose (Fingerstick) 96 mg/dL (70-99) 80 mg/dL (70-99) 149 mg/dL (70-99) White Blood Count 8.8 x10^3/uL (4.0-11.0) Red Blood Count 3.71 x10^6/uL (3.50-5.40) Hemoglobin 11.9 g/dL (12.0-15.5) Hematocrit 36.4 % (36.0-47.0) Mean Corpuscular Volume 98 fL (79-100) Mean Corpuscular Hemoglobin 32 pg (25-35) Mean Corpuscular Hemoglobin Concent 33 g/dL (31-37) Red Cell Distribution Width 17.1 % (11.5-14.5) Platelet Count 314 x10^3/uL (140-400) Neutrophils (%) (Auto) 79 % (31-73) Lymphocytes (%) (Auto) 10 % (24-48) Monocytes (%) (Auto) 5 % (0-9) Eosinophils (%) (Auto) 5 % (0-3) Basophils (%) (Auto) 1 % (0-3) Neutrophils # (Auto) 6.9 x10^3/uL (1.8-7.7) Lymphocytes # (Auto) 0.9 x10^3/uL (1.0-4.8) Monocytes # (Auto) 0.5 x10^3/uL (0.0-1.1) Eosinophils # (Auto) 0.4 x10^3/uL (0.0-0.7) Basophils # (Auto) 0.1 x10^3/uL (0.0-0.2) Sodium Level 136 mmol/L (136-145) Potassium Level 4.2 mmol/L (3.5-5.1) Chloride Level 97 mmol/L (98-107) Carbon Dioxide Level 28 mmol/L (21-32) Anion Gap 11 (6-14) Blood Urea Nitrogen 122 mg/dL (7-20) Creatinine 4.5 mg/dL (0.6-1.0) Estimated GFR (Cockcroft-Gault) 10.1 BUN/Creatinine Ratio 27 (6-20) Glucose Level 92 mg/dL (70-99) Calcium Level 9.7 mg/dL (8.5-10.1) Phosphorus Level 6.9 mg/dL (2.6-4.7) Total Bilirubin 0.4 mg/dL (0.2-1.0) Aspartate Amino Transf (AST/SGOT) 23 U/L (15-37) Alanine Aminotransferase (ALT/SGPT) 27 U/L (14-59) Alkaline Phosphatase 122 U/L (46-116) Total Protein 7.3 g/dL (6.4-8.2) Albumin 1.9 g/dL (3.4-5.0) Albumin/Globulin Ratio 0.4 (1.0-1.7) Results All relevant outside records, renal labs, imaging studies, telemetry/EKG's were reviewed. Justicifation of Admission Dx: Justifications for Admission: Justification of Admission Dx: N/A FLORINA TRONCOSO MD May 09, 2020 09:15
--- NOTE | 2020-05-09 10:41 | PDOC ---
PULMONARY PROGRESS NOTES DATE: 05/09/20 TIME: 10:40 Subjective Pt. is now on vapotherm at 40 liters 90% Feeling better today No overnight concerns from nursing Vitals Vital Signs Date Time Temp Pulse Resp B/P (MAP) Pulse Ox O2 Delivery O2 Flow Rate FiO2 05/09/20 10:00 97 19 138/68 (91) 91 High Flow Nasal Cannula 40.0 05/09/20 08:00 98.4 98.4 Comments Patient is seen during , visual exam performed on vapotherm No accessory muscle use no distress No obvious rash or edema General: Alert, No acute distress Skin: Rash Labs Laboratory Tests Test 05/07/20 12:43 05/07/20 18:47 05/07/20 20:47 05/08/20 07:55 Glucose (Fingerstick) 178 mg/dL (70-99) 170 mg/dL (70-99) 141 mg/dL (70-99) 130 mg/dL (70-99) Test 05/08/20 12:11 05/08/20 16:47 05/08/20 21:17 05/09/20 07:15 Glucose (Fingerstick) 96 mg/dL (70-99) 80 mg/dL (70-99) 149 mg/dL (70-99) White Blood Count 8.8 x10^3/uL (4.0-11.0) Red Blood Count 3.71 x10^6/uL (3.50-5.40) Hemoglobin 11.9 g/dL (12.0-15.5) Hematocrit 36.4 % (36.0-47.0) Mean Corpuscular Volume 98 fL (79-100) Mean Corpuscular Hemoglobin 32 pg (25-35) Mean Corpuscular Hemoglobin Concent 33 g/dL (31-37) Red Cell Distribution Width 17.1 % (11.5-14.5) Platelet Count 314 x10^3/uL (140-400) Neutrophils (%) (Auto) 79 % (31-73) Lymphocytes (%) (Auto) 10 % (24-48) Monocytes (%) (Auto) 5 % (0-9) Eosinophils (%) (Auto) 5 % (0-3) Basophils (%) (Auto) 1 % (0-3) Neutrophils # (Auto) 6.9 x10^3/uL (1.8-7.7) Lymphocytes # (Auto) 0.9 x10^3/uL (1.0-4.8) Monocytes # (Auto) 0.5 x10^3/uL (0.0-1.1) Eosinophils # (Auto) 0.4 x10^3/uL (0.0-0.7) Basophils # (Auto) 0.1 x10^3/uL (0.0-0.2) Sodium Level 136 mmol/L (136-145) Potassium Level 4.2 mmol/L (3.5-5.1) Chloride Level 97 mmol/L (98-107) Carbon Dioxide Level 28 mmol/L (21-32) Anion Gap 11 (6-14) Blood Urea Nitrogen 122 mg/dL (7-20) Creatinine 4.5 mg/dL (0.6-1.0) Estimated GFR (Cockcroft-Gault) 10.1 BUN/Creatinine Ratio 27 (6-20) Glucose Level 92 mg/dL (70-99) Calcium Level 9.7 mg/dL (8.5-10.1) Phosphorus Level 6.9 mg/dL (2.6-4.7) Total Bilirubin 0.4 mg/dL (0.2-1.0) Aspartate Amino Transf (AST/SGOT) 23 U/L (15-37) Alanine Aminotransferase (ALT/SGPT) 27 U/L (14-59) Alkaline Phosphatase 122 U/L (46-116) Total Protein 7.3 g/dL (6.4-8.2) Albumin 1.9 g/dL (3.4-5.0) Albumin/Globulin Ratio 0.4 (1.0-1.7) Laboratory Tests Test 05/08/20 12:11 05/08/20 16:47 05/08/20 21:17 05/09/20 07:15 Glucose (Fingerstick) 96 mg/dL (70-99) 80 mg/dL (70-99) 149 mg/dL (70-99) White Blood Count 8.8 x10^3/uL (4.0-11.0) Red Blood Count 3.71 x10^6/uL (3.50-5.40) Hemoglobin 11.9 g/dL (12.0-15.5) Hematocrit 36.4 % (36.0-47.0) Mean Corpuscular Volume 98 fL (79-100) Mean Corpuscular Hemoglobin 32 pg (25-35) Mean Corpuscular Hemoglobin Concent 33 g/dL (31-37) Red Cell Distribution Width 17.1 % (11.5-14.5) Platelet Count 314 x10^3/uL (140-400) Neutrophils (%) (Auto) 79 % (31-73) Lymphocytes (%) (Auto) 10 % (24-48) Monocytes (%) (Auto) 5 % (0-9) Eosinophils (%) (Auto) 5 % (0-3) Basophils (%) (Auto) 1 % (0-3) Neutrophils # (Auto) 6.9 x10^3/uL (1.8-7.7) Lymphocytes # (Auto) 0.9 x10^3/uL (1.0-4.8) Monocytes # (Auto) 0.5 x10^3/uL (0.0-1.1) Eosinophils # (Auto) 0.4 x10^3/uL (0.0-0.7) Basophils # (Auto) 0.1 x10^3/uL (0.0-0.2) Sodium Level 136 mmol/L (136-145) Potassium Level 4.2 mmol/L (3.5-5.1) Chloride Level 97 mmol/L (98-107) Carbon Dioxide Level 28 mmol/L (21-32) Anion Gap 11 (6-14) Blood Urea Nitrogen 122 mg/dL (7-20) Creatinine 4.5 mg/dL (0.6-1.0) Estimated GFR (Cockcroft-Gault) 10.1 BUN/Creatinine Ratio 27 (6-20) Glucose Level 92 mg/dL (70-99) Calcium Level 9.7 mg/dL (8.5-10.1) Phosphorus Level 6.9 mg/dL (2.6-4.7) Total Bilirubin 0.4 mg/dL (0.2-1.0) Aspartate Amino Transf (AST/SGOT) 23 U/L (15-37) Alanine Aminotransferase (ALT/SGPT) 27 U/L (14-59) Alkaline Phosphatase 122 U/L (46-116) Total Protein 7.3 g/dL (6.4-8.2) Albumin 1.9 g/dL (3.4-5.0) Albumin/Globulin Ratio 0.4 (1.0-1.7) Medications Active Scripts Medications Dose Route/Sig Max Daily Dose Days Date Category Dose Instructions Gabapentin 600 Mg Tablet 600 Mg PO HS 04/27/20 Reported Gabapentin (Gabapentin) 300 Mg Capsule 300 Mg PO DAILY 04/27/20 Reported Lantus Solostar (Insulin Glargine,Hum.rec.anlog) 100 Unit/1 Ml Insuln.pen 75 Unit SQ BID 09/19/19 Reported Januvia (Sitagliptin Phosphate) 25 Mg Tablet 25 Mg PO DAILY 09/19/19 Reported Novolog (Insulin Aspart) 100 Unit/1 Ml Cartridge 0 SQ TIDAC 01/26/19 Reported Sliding scale; patient has printout (at home) of scale. Unknown at this time. Singulair Tablet (Montelukast Sodium) 10 Mg Tablet 10 Mg PO HS 11/24/18 Reported Atorvastatin Calcium 40 Mg Tablet 1 Tab PO QHS 11/24/18 Reported Torsemide 20 Mg Tablet 2 Tab PO BID 11/24/18 Reported Cymbalta (Duloxetine Hcl) 30 Mg Capsule.dr 1 Cap PO BID 11/24/18 Reported Daily Jalen (Multivitamin) 1 Each Tablet 1 Each PO DAILY 11/24/18 Reported Comments CTA chest IMPRESSION: 1. No evidence of pulmonary thromboembolic disease. 2. Multifocal bilateral groundglass opacities and consolidations, consistent with patient's history of infection. 3. Dilated pulmonary trunk, which can be seen with pulmonary hypertension. Impression . IMPRESSION: 1. Acute hypoxemic respiratory failure secondary to COVID-19 viral pneumonia./ ALI/ARDS 2. COVID-[address] angiogram, no evidence of pulmonary embolism. 4. Chronic kidney disease, on peritoneal dialysis. 5. Morbid obesity. 6. Obstructive sleep apnea. 7. Hyperlipidemia. 8. Hypertension. Plan . PLAN: Continue supplemental oxygen to keep oxygen saturations greater than 92%, currently on Vapotherm 90% and 40 liters, Follow chest x-ray/ABG prn has completed full course of steroids Follow ID recs for ABX, currently off ABX Completed Full course of remdesivir Follow nephrology recommendations in regards to peritoneal dialysis Physical therapy/Occupational Therapy DVT/GI prophylaxis Discussed with CORINNA and RT Social work for D/C planning LTACH ESSENCE HERNANDEZ MD May 09, 2020 10:41
--- NOTE | 2020-05-09 11:12 | PDOC ---
Infectious Disease Note Subjective: Subjective Pt on high flow O2 no new concerns per d/w RN Vital Signs: Vital Signs Vital Signs Date Time Temp Pulse Resp B/P (MAP) Pulse Ox O2 Delivery O2 Flow Rate FiO2 05/09/20 11:00 103 19 139/70 (93) 91 High Flow Nasal Cannula 40.0 05/09/20 08:00 98.4 98.4 Physical Exam: PHYSICAL EXAM visual exam done during covid GENERAL: Patient comfortable HEART: RRR EXTREMITIES: No edema, NEUROLOGIC: alert awake,moves all 4 ext Medications: Inpatient Meds: Current Medications Medications (Trade) Dose Ordered Sig/Mya Start Time Stop Time Status Last Admin Dose Admin Acetaminophen (Tylenol) 650 mg PRN Q4HRS PRN 04/27/20 23:15 05/08/20 20:30 650 MG Amino Acids/ Glycerin/ Electrolytes 1,000 ml @ 80 mls/hr [id number] 05/04/20 10:15 05/07/20 12:31 DC 05/07/20 05:27 80 MLS/HR Ascorbic Acid (Vitamin C) 1,000 mg DAILY 04/28/20 13:00 04/30/20 08:57 DC 04/30/20 08:11 1,000 MG Atorvastatin Calcium (Lipitor) 40 mg QHS 04/27/20 21:00 04/30/20 08:57 DC 04/29/20 19:57 40 MG Azithromycin 250 ml @ 250 mls/hr 1X ONCE 04/26/20 23:00 04/26/20 23:59 DC 04/26/20 23:18 250 MLS/HR Carvedilol (Coreg) 25 mg BIDWMEALS 05/01/20 17:00 05/09/20 08:09 25 MG Ceftriaxone Sodium (Rocephin) 1 gm Q24H 04/28/20 13:00 05/03/20 09:20 DC 05/02/20 12:20 1 GM Cyclobenzaprine HCl (Flexeril) 10 mg PRN QID PRN 04/28/20 21:00 05/08/20 20:30 10 MG Dexamethasone (Decadron) 4 mg DAILYWBKFT 05/04/20 08:00 05/06/20 08:33 DC 05/06/20 08:15 4 MG Dextrose (Dextrose 50%-Water Syringe) 12.5 gm PRN Q15MIN PRN 04/27/20 04:00 05/03/20 18:50 25 GM Docusate Sodium (Colace) 100 mg BID 05/01/20 12:45 05/09/20 08:09 100 MG Doxycycline Hyclate (Vibra-Tab) 100 mg BID 04/28/20 13:00 05/03/20 09:20 DC 05/03/20 08:36 100 MG Duloxetine HCl (Cymbalta) 30 mg BID 04/27/20 09:00 05/09/20 08:09 30 MG Enoxaparin Sodium (Lovenox 30mg Syringe) 30 mg Q24H 04/28/20 13:00 04/28/20 12:38 DC Gabapentin (Neurontin) 600 mg QHS 04/27/20 04:30 05/08/20 20:30 600 MG Heparin Sodium (Porcine) (Heparin Sodium) 5,000 unit Q8HRS 04/28/20 14:00 05/09/20 05:57 5,000 UNIT Info (CONTRAST GIVEN -- Rx MONITORING) 1 each PRN DAILY PRN 04/26/20 20:45 04/28/20 20:44 DC Insulin Glargine (Lantus Syringe) 60 unit DAILY 05/10/20 09:00 Insulin Human Lispro (HumaLOG) 20 units PRN BFRMEALHC PRN 05/06/20 03:00 Iohexol (Omnipaque 350 Mg/ml) 100 ml 1X ONCE 04/26/20 20:45 04/26/20 20:46 DC 04/26/20 21:20 100 ML Lactobacillus Rhamnosus (Culturelle) 1 cap BID 04/29/20 21:00 05/09/20 08:08 1 CAP Lactulose (Lactulose) 20 gm PRN 1X PRN 05/03/20 13:45 05/07/20 23:34 20 GM Linagliptin (Tradjenta) 5 mg DAILY 04/27/20 09:00 05/09/20 08:09 5 MG Montelukast Sodium (Singulair) 10 mg HS 04/27/20 21:00 04/30/20 08:57 DC 04/29/20 19:57 10 MG Multivitamins (Thera M Plus) 1 tab DAILY 04/27/20 09:00 05/09/20 08:08 1 TAB Non-Formulary Medication (Gabapentin ) 600 mg HS 04/27/20 21:00 UNV Nystatin (Nystop) 1 jackie BID 05/08/20 21:00 UNV Ondansetron HCl (Zofran Odt) 4 mg PRN Q6HRS PRN 04/28/20 12:15 05/09/20 08:08 4 MG Ondansetron HCl (Zofran) 4 mg PRN Q8HRS PRN 04/26/20 22:45 04/27/20 22:44 DC Pantoprazole Sodium (PROTONIX VIAL for IV PUSH) 40 mg DAILY 05/02/20 09:00 05/07/20 15:25 DC 05/07/20 08:22 40 MG Pantoprazole Sodium (Protonix) 40 mg DAILYAC 05/08/20 07:30 05/09/20 08:09 40 MG Potassium Chloride/Water 100 ml @ 100 mls/hr Q1H 05/01/20 15:00 05/01/20 18:59 DC 05/01/20 19:55 100 MLS/HR Potassium Chloride (Klor-Con) 20 meq DAILYWBKFT 05/02/20 08:00 05/09/20 08:09 20 MEQ Remdesivir 100 mg/ Sodium Chloride 230 ml @ 460 mls/hr Q24H 04/29/20 14:00 05/02/20 14:29 DC 05/02/20 14:27 460 MLS/HR Remdesivir 200 mg/ Sodium Chloride 210 ml @ 210 mls/hr 1X ONCE 04/28/20 14:00 04/28/20 14:59 DC 04/28/20 15:39 210 MLS/HR Sevelamer Carbonate (Renvela) 1,600 mg TIDWMEALS 05/02/20 17:00 05/09/20 08:08 1,600 MG Sodium Chloride 1,000 ml @ 1,000 mls/hr 1X ONCE 04/26/20 19:15 04/26/20 20:14 DC 04/26/20 19:17 1,000 MLS/HR Sterile Water (WATER for RESP) 1,000 ml CONT PRN 04/30/20 20:30 05/09/20 03:23 1,000 ML Temazepam (Restoril) 15 mg PRN QHS PRN 12/20/20 21:00 04/29/20 06:48 DC 04/28/20 22:48 15 MG Torsemide (Demadex) 40 mg [id number] 04/27/20 09:00 05/09/20 08:08 40 MG Vitamin B Complex/ Vitamin C (Kelly-Jalen) 1 tab DAILY 04/29/20 14:00 05/09/20 08:08 1 TAB Vitamin D (Vitamin D3) 500 unit DAILY 04/28/20 13:00 04/30/20 08:57 DC 04/30/20 08:10 500 UNIT Zinc Sulfate (Orazinc) 220 mg DAILY 04/28/20 13:00 05/09/20 08:08 220 MG Labs: Lab Laboratory Tests Test 05/08/20 12:11 05/08/20 16:47 05/08/20 21:17 05/09/20 07:15 Glucose (Fingerstick) 96 mg/dL (70-99) 80 mg/dL (70-99) 149 mg/dL (70-99) White Blood Count 8.8 x10^3/uL (4.0-11.0) Red Blood Count 3.71 x10^6/uL (3.50-5.40) Hemoglobin 11.9 g/dL (12.0-15.5) Hematocrit 36.4 % (36.0-47.0) Mean Corpuscular Volume 98 fL (79-100) Mean Corpuscular Hemoglobin 32 pg (25-35) Mean Corpuscular Hemoglobin Concent 33 g/dL (31-37) Red Cell Distribution Width 17.1 % (11.5-14.5) Platelet Count 314 x10^3/uL (140-400) Neutrophils (%) (Auto) 79 % (31-73) Lymphocytes (%) (Auto) 10 % (24-48) Monocytes (%) (Auto) 5 % (0-9) Eosinophils (%) (Auto) 5 % (0-3) Basophils (%) (Auto) 1 % (0-3) Neutrophils # (Auto) 6.9 x10^3/uL (1.8-7.7) Lymphocytes # (Auto) 0.9 x10^3/uL (1.0-4.8) Monocytes # (Auto) 0.5 x10^3/uL (0.0-1.1) Eosinophils # (Auto) 0.4 x10^3/uL (0.0-0.7) Basophils # (Auto) 0.1 x10^3/uL (0.0-0.2) Sodium Level 136 mmol/L (136-145) Potassium Level 4.2 mmol/L (3.5-5.1) Chloride Level 97 mmol/L (98-107) Carbon Dioxide Level 28 mmol/L (21-32) Anion Gap 11 (6-14) Blood Urea Nitrogen 122 mg/dL (7-20) Creatinine 4.5 mg/dL (0.6-1.0) Estimated GFR (Cockcroft-Gault) 10.1 BUN/Creatinine Ratio 27 (6-20) Glucose Level 92 mg/dL (70-99) Calcium Level 9.7 mg/dL (8.5-10.1) Phosphorus Level 6.9 mg/dL (2.6-4.7) Total Bilirubin 0.4 mg/dL (0.2-1.0) Aspartate Amino Transf (AST/SGOT) 23 U/L (15-37) Alanine Aminotransferase (ALT/SGPT) 27 U/L (14-59) Alkaline Phosphatase 122 U/L (46-116) Total Protein 7.3 g/dL (6.4-8.2) Albumin 1.9 g/dL (3.4-5.0) Albumin/Globulin Ratio 0.4 (1.0-1.7) Objective: Assessment: 1. COVID-19 infection. 2. Acute hypoxic respiratory failure due to COVID-19 viral pneumonia. 3. Chronic kidney disease, on peritoneal dialysis. 4. Diabetes mellitus. 5. Morbid obesity. 6. History of obstructive sleep apnea. 7. Hyperlipidemia, hypertension. Plan: Plan of Care Continue supportive care Status post remdesivir steroids DC'd. Monitor off antibiotics We will sign off Call with any questions STANTON ALBERT MD May 09, 2020 11:12
--- NOTE | 2020-05-09 15:39 | NUR ---
SS following up with discharge planning. SS reviewed pt chart and discussed with pt RN. Pt is currently on Vapotherm at 90%. COVID19 positive. Peritoneal dialysis. PT/OT recommended long-term unit. SS will continue to follow for discharge planning.
[2020-05-09] MEDS: GABAPENTIN 300 MG CAPSULE. PO SCH (21:19)
[2020-05-10] VITALS (22 sets, daily range): BP systolic 83–152; BP diastolic 54–91
[2020-05-10] MEDS: ONDANSETRON ODT 4 MG TAB.RAPDIS. PO PRN (00:08)
[2020-05-10] MEDS: CYCLOBENZAPRINE 10 MG TABLET. PO PRN (02:24)
[2020-05-10] MEDS: STERILE WATER for RESP 1,000 ML BAG. INH PRN ×3 (05:53→21:40)
[2020-05-10] MEDS: HEPARIN for SUB-Q USE 5,000 UNIT/ML VIAL. SQ SCH ×3 (05:54→20:58)
--- NOTE | 2020-05-10 08:49 | PDOC ---
Dialysis Progress Note Date of Service: DATE: 05/10/20 TIME: 08:47 Dialysis Note Dialysis Note Pt remains in COVID-19 isolation, unable to see ESRD - ct on peritoneal dialysis per home regimen: Discussed with wood handler Azotemia- BUN up 2/2 Steroids, decd on 05/06, monitor trend and for Uremic S/s for now SEv. HypoALbuminemia - encourage PO Protein. IV ALb prn COVID-19 infection Vitals Vital Signs Vital Signs Date Time Temp Pulse Resp B/P (MAP) Pulse Ox O2 Delivery O2 Flow Rate FiO2 05/10/20 07:37 90 VAPOTHERM 40.0 05/10/20 06:00 88 21 106/60 (75) 05/10/20 04:00 98.3 98.3 Labs Last Labs Laboratory Tests Test 05/08/20 12:11 05/08/20 16:47 05/08/20 21:17 05/09/20 07:15 Glucose (Fingerstick) 96 mg/dL (70-99) 80 mg/dL (70-99) 149 mg/dL (70-99) White Blood Count 8.8 x10^3/uL (4.0-11.0) Red Blood Count 3.71 x10^6/uL (3.50-5.40) Hemoglobin 11.9 g/dL (12.0-15.5) Hematocrit 36.4 % (36.0-47.0) Mean Corpuscular Volume 98 fL (79-100) Mean Corpuscular Hemoglobin 32 pg (25-35) Mean Corpuscular Hemoglobin Concent 33 g/dL (31-37) Red Cell Distribution Width 17.1 % (11.5-14.5) Platelet Count 314 x10^3/uL (140-400) Neutrophils (%) (Auto) 79 % (31-73) Lymphocytes (%) (Auto) 10 % (24-48) Monocytes (%) (Auto) 5 % (0-9) Eosinophils (%) (Auto) 5 % (0-3) Basophils (%) (Auto) 1 % (0-3) Neutrophils # (Auto) 6.9 x10^3/uL (1.8-7.7) Lymphocytes # (Auto) 0.9 x10^3/uL (1.0-4.8) Monocytes # (Auto) 0.5 x10^3/uL (0.0-1.1) Eosinophils # (Auto) 0.4 x10^3/uL (0.0-0.7) Basophils # (Auto) 0.1 x10^3/uL (0.0-0.2) Sodium Level 136 mmol/L (136-145) Potassium Level 4.2 mmol/L (3.5-5.1) Chloride Level 97 mmol/L (98-107) Carbon Dioxide Level 28 mmol/L (21-32) Anion Gap 11 (6-14) Blood Urea Nitrogen 122 mg/dL (7-20) Creatinine 4.5 mg/dL (0.6-1.0) Estimated GFR (Cockcroft-Gault) 10.1 BUN/Creatinine Ratio 27 (6-20) Glucose Level 92 mg/dL (70-99) Calcium Level 9.7 mg/dL (8.5-10.1) Phosphorus Level 6.9 mg/dL (2.6-4.7) Total Bilirubin 0.4 mg/dL (0.2-1.0) Aspartate Amino Transf (AST/SGOT) 23 U/L (15-37) Alanine Aminotransferase (ALT/SGPT) 27 U/L (14-59) Alkaline Phosphatase 122 U/L (46-116) Total Protein 7.3 g/dL (6.4-8.2) Albumin 1.9 g/dL (3.4-5.0) Albumin/Globulin Ratio 0.4 (1.0-1.7) Assessment Assessment Problems Medical Problems: (1) CAP (community acquired pneumonia) Status: Acute (2) COVID-19 Status: Acute Plan Plan of Care Problems Medical Problems: (1) CAP (community acquired pneumonia) Status: Acute (2) COVID-19 Status: Acute LEYDI ALBERT MD May 10, 2020 08:49
[2020-05-10] MEDS: NYSTATIN TOPICAL POWDER 15GM BOTTLE. TP SCH ×2 (09:00→21:42)
[2020-05-10] MEDS: DULoxetine HCL 30 MG CAPSULE.DR PO SCH ×2 (09:17→20:57)
[2020-05-10] MEDS: PANTOPRAZOLE 40 MG TABLET.DR. PO SCH (09:17)
[2020-05-10] MEDS: LACTOBACILLUS RHAMNOSUS GG 1 CAPSULE. PO SCH ×2 (09:17→20:57)
[2020-05-10] MEDS: TORSEMIDE 20 MG TABLET. PO SCH ×2 (09:17→15:46)
[2020-05-10] MEDS: LINAGLIPTIN 5 MG TABLET PO SCH (09:17)
[2020-05-10] MEDS: POTASSIUM CHLORIDE 20 MEQ TABLET.ER. PO SCH (09:18)
[2020-05-10] MEDS: FOLIC/VIT B COMP W-C (RENAL) TABLET. PO SCH (09:18)
[2020-05-10] MEDS: SEVELAMER CARBONATE 800 MG TABLET. PO SCH ×3 (09:18→18:11)
[2020-05-10] MEDS: MULTIVITAMIN with MINERAL TABLET. PO SCH (09:18)
[2020-05-10] MEDS: ZINC SULFATE 220 MG CAPSULE. PO SCH (09:18)
[2020-05-10] MEDS: DOCUSATE SODIUM 100 MG CAPSULE. PO SCH ×2 (09:18→20:57)
[2020-05-10] MEDS: CARVEDILOL 12.5 MG TABLET. PO SCH ×2 (09:23→18:12)
[2020-05-10] MEDS: INSULIN GLARGINE SYRINGE. SQ SCH (09:36)
--- NOTE | 2020-05-10 10:53 | PDOC ---
PULMONARY PROGRESS NOTES DATE: 05/10/20 TIME: 10:51 Subjective Remains on vapotherm at 40 liters 90% Feeling better today No overnight concerns from nursing Vitals Vital Signs Date Time Temp Pulse Resp B/P (MAP) Pulse Ox O2 Delivery O2 Flow Rate FiO2 05/10/20 09:23 88 106/60 05/10/20 07:37 90 VAPOTHERM 40.0 05/10/20 06:00 21 05/10/20 04:00 98.3 98.3 Comments Patient is seen during COVID-19 pandemic, visual exam performed on vapotherm No accessory muscle use no distress No obvious rash or edema General: Alert, No acute distress Neuro Exam: Alert, Oriented Labs Laboratory Tests Test 05/08/20 12:11 05/08/20 16:47 05/08/20 21:17 05/09/20 07:15 Glucose (Fingerstick) 96 mg/dL (70-99) 80 mg/dL (70-99) 149 mg/dL (70-99) White Blood Count 8.8 x10^3/uL (4.0-11.0) Red Blood Count 3.71 x10^6/uL (3.50-5.40) Hemoglobin 11.9 g/dL (12.0-15.5) Hematocrit 36.4 % (36.0-47.0) Mean Corpuscular Volume 98 fL (79-100) Mean Corpuscular Hemoglobin 32 pg (25-35) Mean Corpuscular Hemoglobin Concent 33 g/dL (31-37) Red Cell Distribution Width 17.1 % (11.5-14.5) Platelet Count 314 x10^3/uL (140-400) Neutrophils (%) (Auto) 79 % (31-73) Lymphocytes (%) (Auto) 10 % (24-48) Monocytes (%) (Auto) 5 % (0-9) Eosinophils (%) (Auto) 5 % (0-3) Basophils (%) (Auto) 1 % (0-3) Neutrophils # (Auto) 6.9 x10^3/uL (1.8-7.7) Lymphocytes # (Auto) 0.9 x10^3/uL (1.0-4.8) Monocytes # (Auto) 0.5 x10^3/uL (0.0-1.1) Eosinophils # (Auto) 0.4 x10^3/uL (0.0-0.7) Basophils # (Auto) 0.1 x10^3/uL (0.0-0.2) Sodium Level 136 mmol/L (136-145) Potassium Level 4.2 mmol/L (3.5-5.1) Chloride Level 97 mmol/L (98-107) Carbon Dioxide Level 28 mmol/L (21-32) Anion Gap 11 (6-14) Blood Urea Nitrogen 122 mg/dL (7-20) Creatinine 4.5 mg/dL (0.6-1.0) Estimated GFR (Cockcroft-Gault) 10.1 BUN/Creatinine Ratio 27 (6-20) Glucose Level 92 mg/dL (70-99) Calcium Level 9.7 mg/dL (8.5-10.1) Phosphorus Level 6.9 mg/dL (2.6-4.7) Total Bilirubin 0.4 mg/dL (0.2-1.0) Aspartate Amino Transf (AST/SGOT) 23 U/L (15-37) Alanine Aminotransferase (ALT/SGPT) 27 U/L (14-59) Alkaline Phosphatase 122 U/L (46-116) Total Protein 7.3 g/dL (6.4-8.2) Albumin 1.9 g/dL (3.4-5.0) Albumin/Globulin Ratio 0.4 (1.0-1.7) Test 05/10/20 09:25 Glucose (Fingerstick) 161 mg/dL (70-99) Laboratory Tests Test 05/10/20 09:25 Glucose (Fingerstick) 161 mg/dL (70-99) Medications Active Scripts Medications Dose Route/Sig Max Daily Dose Days Date Category Dose Instructions Gabapentin 600 Mg Tablet 600 Mg PO HS 04/27/20 Reported Gabapentin (Gabapentin) 300 Mg Capsule 300 Mg PO DAILY 04/27/20 Reported Lantus Solostar (Insulin Glargine,Hum.rec.anlog) 100 Unit/1 Ml Insuln.pen 75 Unit SQ BID 09/19/19 Reported Januvia (Sitagliptin Phosphate) 25 Mg Tablet 25 Mg PO DAILY 09/19/19 Reported Novolog (Insulin Aspart) 100 Unit/1 Ml Cartridge 0 SQ TIDAC 01/26/19 Reported Sliding scale; patient has printout (at home) of scale. Unknown at this time. Singulair Tablet (Montelukast Sodium) 10 Mg Tablet 10 Mg PO HS 11/24/18 Reported Atorvastatin Calcium 40 Mg Tablet 1 Tab PO QHS 11/24/18 Reported Torsemide 20 Mg Tablet 2 Tab PO BID 11/24/18 Reported Cymbalta (Duloxetine Hcl) 30 Mg Capsule.dr 1 Cap PO BID 11/24/18 Reported Daily Jalen (Multivitamin) 1 Each Tablet 1 Each PO DAILY 11/24/18 Reported Comments CTA chest IMPRESSION: 1. No evidence of pulmonary thromboembolic disease. 2. Multifocal bilateral groundglass opacities and consolidations, consistent with patient's history of infection. 3. Dilated pulmonary trunk, which can be seen with pulmonary hypertension. Impression . IMPRESSION: 1. Acute hypoxemic respiratory failure secondary to COVID-19 viral pneumonia./ ALI/ARDS 2. COVID-[address] angiogram, no evidence of pulmonary embolism. 4. Chronic kidney disease, on peritoneal dialysis. 5. Morbid obesity. 6. Obstructive sleep apnea. 7. Hyperlipidemia. 8. Hypertension. Plan . PLAN: Continue supplemental oxygen to keep oxygen saturations greater than 92%, currently on Vapotherm 90% and 40 liters,wean as tolerated Follow chest x-ray/ABG prn Pt. has completed full course of steroids Follow ID recs for ABX, currently off ABX, ID has signed off at this time PT. has completed Full course of remdesivir Follow nephrology recommendations in regards to peritoneal dialysis Physical therapy/Occupational Therapy DVT/GI prophylaxis Discussed with RN and RT Social work for D/C planning ESSENCE FERRARO MD May 10, 2020 10:53
--- NOTE | 2020-05-10 12:45 | PDOC ---
Provider Note Date of Service: DATE: 05/10/20 TIME: 12:45 Provider Note glucose good on levemir 60 u, cont same and tradjenta Justifications for Admission Other Justification VERNA GARCIA MD May 10, 2020 12:45
--- NOTE | 2020-05-10 12:54 | PDOC ---
Infectious Disease Note Subjective: Subjective Pt remains on vapotherm no new concerns per d/w RN Vital Signs: Vital Signs Vital Signs Date Time Temp Pulse Resp B/P (MAP) Pulse Ox O2 Delivery O2 Flow Rate FiO2 05/10/20 12:00 Nasal Cannula 40.0 05/10/20 11:41 90 05/10/20 11:00 89 26 125/67 (86) 05/10/20 07:00 97.9 97.9 Physical Exam: PHYSICAL EXAM visual exam done during covid GENERAL: Patient comfortable HEART: RRR EXTREMITIES: No edema, NEUROLOGIC: alert awake,moves all 4 ext Medications: Inpatient Meds: Current Medications Medications (Trade) Dose Ordered Sig/Mya Start Time Stop Time Status Last Admin Dose Admin Acetaminophen (Tylenol) 650 mg PRN Q4HRS PRN 04/27/20 23:15 05/08/20 20:30 650 MG Amino Acids/ Glycerin/ Electrolytes 1,000 ml @ 80 mls/hr [id number] 05/04/20 10:15 05/07/20 12:31 DC 05/07/20 05:27 80 MLS/HR Ascorbic Acid (Vitamin C) 1,000 mg DAILY 04/28/20 13:00 04/30/20 08:57 DC 04/30/20 08:11 1,000 MG Atorvastatin Calcium (Lipitor) 40 mg QHS 04/27/20 21:00 04/30/20 08:57 DC 04/29/20 19:57 40 MG Azithromycin 250 ml @ 250 mls/hr 1X ONCE 04/26/20 23:00 04/26/20 23:59 DC 04/26/20 23:18 250 MLS/HR Carvedilol (Coreg) 25 mg BIDWMEALS 05/01/20 17:00 05/10/20 09:23 25 MG Ceftriaxone Sodium (Rocephin) 1 gm Q24H 04/28/20 13:00 05/03/20 09:20 DC 05/02/20 12:20 1 GM Cyclobenzaprine HCl (Flexeril) 10 mg PRN QID PRN 04/28/20 21:00 05/10/20 02:24 10 MG Dexamethasone (Decadron) 4 mg [id number] 05/04/20 08:00 05/06/20 08:33 DC 05/06/20 08:15 4 MG Dextrose (Dextrose 50%-Water Syringe) 12.5 gm PRN Q15MIN PRN 04/27/20 04:00 05/03/20 18:50 25 GM Docusate Sodium (Colace) 100 mg BID 05/01/20 12:45 05/10/20 09:18 100 MG Doxycycline Hyclate (Vibra-Tab) 100 mg BID 04/28/20 13:00 05/03/20 09:20 DC 05/03/20 08:36 100 MG Duloxetine HCl (Cymbalta) 30 mg BID 04/27/20 09:00 05/10/20 09:17 30 MG Enoxaparin Sodium (Lovenox 30mg Syringe) 30 mg Q24H 04/28/20 13:00 04/28/20 12:38 DC Gabapentin (Neurontin) 600 mg QHS 04/27/20 04:30 05/09/20 21:19 600 MG Heparin Sodium (Porcine) (Heparin Sodium) 5,000 unit Q8HRS 04/28/20 14:00 05/10/20 05:54 5,000 UNIT Info (CONTRAST GIVEN -- Rx MONITORING) 1 each PRN DAILY PRN 04/26/20 20:45 04/28/20 20:44 DC Insulin Glargine (Lantus Syringe) 60 unit DAILY 05/10/20 09:00 05/10/20 09:36 60 UNIT Insulin Human Lispro (HumaLOG) 20 units PRN BFRMEALHC PRN 05/06/20 03:00 Iohexol (Omnipaque 350 Mg/ml) 100 ml 1X ONCE 04/26/20 20:45 04/26/20 20:46 DC 04/26/20 21:20 100 ML Lactobacillus Rhamnosus (Culturelle) 1 cap BID 04/29/20 21:00 05/10/20 09:17 1 CAP Lactulose (Lactulose) 20 gm PRN 1X PRN 05/03/20 13:45 05/07/20 23:34 20 GM Linagliptin (Tradjenta) 5 mg DAILY 04/27/20 09:00 05/10/20 09:17 5 MG Montelukast Sodium (Singulair) 10 mg HS 04/27/20 21:00 04/30/20 08:57 DC 04/29/20 19:57 10 MG Multivitamins (Thera M Plus) 1 tab DAILY 04/27/20 09:00 05/10/20 09:18 1 TAB Non-Formulary Medication (Gabapentin ) 600 mg HS 04/27/20 21:00 UNV Nystatin (Nystop) 1 jackie BID 05/08/20 21:00 UNV Ondansetron HCl (Zofran Odt) 4 mg PRN Q6HRS PRN 04/28/20 12:15 05/10/20 00:08 4 MG Ondansetron HCl (Zofran) 4 mg PRN Q8HRS PRN 04/26/20 22:45 04/27/20 22:44 DC Pantoprazole Sodium (PROTONIX VIAL for IV PUSH) 40 mg DAILY 05/02/20 09:00 05/07/20 15:25 DC 05/07/20 08:22 40 MG Pantoprazole Sodium (Protonix) 40 mg DAILYAC 05/08/20 07:30 05/10/20 09:17 40 MG Potassium Chloride/Water 100 ml @ 100 mls/hr Q1H 05/01/20 15:00 05/01/20 18:59 DC 05/01/20 19:55 100 MLS/HR Potassium Chloride (Klor-Con) 20 meq DAILYWBKFT 05/02/20 08:00 05/10/20 09:18 20 MEQ Remdesivir 100 mg/ Sodium Chloride 230 ml @ 460 mls/hr Q24H 04/29/20 14:00 05/02/20 14:29 DC 05/02/20 14:27 460 MLS/HR Remdesivir 200 mg/ Sodium Chloride 210 ml @ 210 mls/hr 1X ONCE 04/28/20 14:00 04/28/20 14:59 DC 04/28/20 15:39 210 MLS/HR Sevelamer Carbonate (Renvela) 1,600 mg TIDWMEALS 05/02/20 17:00 05/10/20 09:18 1,600 MG Sodium Chloride 1,000 ml @ 1,000 mls/hr 1X ONCE 04/26/20 19:15 04/26/20 20:14 DC 04/26/20 19:17 1,000 MLS/HR Sterile Water (WATER for RESP) 1,000 ml CONT PRN 04/30/20 20:30 05/10/20 05:53 1,000 ML Temazepam (Restoril) 15 mg PRN QHS PRN 04/28/20 21:00 04/29/20 06:48 DC 04/28/20 22:48 15 MG Torsemide (Demadex) 40 mg [id number] 04/27/20 09:00 05/10/20 09:17 40 MG Vitamin B Complex/ Vitamin C (Kelly-Jalen) 1 tab DAILY 04/29/20 14:00 05/10/20 09:18 1 TAB Vitamin D (Vitamin D3) 500 unit DAILY 04/28/20 13:00 04/30/20 08:57 DC 04/30/20 08:10 500 UNIT Zinc Sulfate (Orazinc) 220 mg DAILY 04/28/20 13:00 05/10/20 09:18 220 MG Labs: Lab Laboratory Tests Test 05/10/20 09:25 Glucose (Fingerstick) 161 mg/dL (70-99) Objective: Assessment: 1. COVID-19 infection. 2. Acute hypoxic respiratory failure due to COVID-19 viral pneumonia. 3. Chronic kidney disease, on peritoneal dialysis. 4. Diabetes mellitus. 5. Morbid obesity. 6. History of obstructive sleep apnea. 7. Hyperlipidemia, hypertension. Plan: Plan of Care Continue supportive care Status post remdesivir steroids DC'd. Monitor off antibiotics We will sign off Call with any questions STANTON ALBERT MD May 10, 2020 12:54
[2020-05-10] MEDS: SIMETHICONE 80 MG TAB.CHEW PO PRN ×3 (15:46→20:57)
[2020-05-10] MEDS: GABAPENTIN 300 MG CAPSULE. PO SCH (20:57)
[2020-05-11] VITALS (22 sets, daily range): BP systolic 84–144; BP diastolic 56–86
[2020-05-11] MEDS: HEPARIN for SUB-Q USE 5,000 UNIT/ML VIAL. SQ SCH ×3 (05:58→23:17)
--- NOTE | 2020-05-11 07:38 | RAD ---
EXAM: Chest, single view. HISTORY: Covid 19. COMPARISON: 04/30/2020 FINDINGS: A frontal view of the chest was obtained. There has been interval increase in diffuse mixed interstitial and alveolar infiltrate with areas of partial consolidation. There are stable small ple ural effusions. There is a stable cardiac silhouette. There is no pneumothorax. IMPRESSION: Increase in diffuse infiltrate. Electronically signed by: Julianne Heller MD (05/11/2020 7:36 AM) [facility]
--- NOTE | 2020-05-11 08:56 | PDOC ---
PULMONARY PROGRESS NOTES DATE: 05/11/20 TIME: 08:55 Subjective Remains on vapotherm at 40 liters 85% No overnight concerns from nursing Vitals Vital Signs Date Time Temp Pulse Resp B/P (MAP) Pulse Ox O2 Delivery O2 Flow Rate FiO2 05/11/20 05:54 98.4 90 120/65 (83) 99 Nasal Cannula 40.0 98.4 05/11/20 00:51 22 Comments Patient is seen during pandemic, visual exam performed on vapotherm No accessory muscle use no distress No obvious rash or edema General: Alert, No acute distress Neuro Exam: Alert, Oriented Labs Laboratory Tests Test 05/10/20 09:25 05/10/20 13:01 05/10/20 18:13 05/10/20 21:10 Glucose (Fingerstick) 161 mg/dL (70-99) 159 mg/dL (70-99) 171 mg/dL (70-99) 201 mg/dL (70-99) Test 05/11/20 08:22 Glucose (Fingerstick) 106 mg/dL (70-99) Laboratory Tests Test 05/10/20 09:25 05/10/20 13:01 05/10/20 18:13 05/10/20 21:10 Glucose (Fingerstick) 161 mg/dL (70-99) 159 mg/dL (70-99) 171 mg/dL (70-99) 201 mg/dL (70-99) Test 05/11/20 08:22 Glucose (Fingerstick) 106 mg/dL (70-99) Medications Active Scripts Medications Dose Route/Sig Max Daily Dose Days Date Category Dose Instructions Gabapentin 600 Mg Tablet 600 Mg PO HS 04/27/20 Reported Gabapentin (Gabapentin) 300 Mg Capsule 300 Mg PO DAILY 04/27/20 Reported Lantus Solostar (Insulin Glargine,Hum.rec.anlog) 100 Unit/1 Ml Insuln.pen 75 Unit SQ BID 09/19/19 Reported Januvia (Sitagliptin Phosphate) 25 Mg Tablet 25 Mg PO DAILY 09/19/19 Reported Novolog (Insulin Aspart) 100 Unit/1 Ml Cartridge 0 SQ TIDAC 01/26/19 Reported Sliding scale; patient has printout (at home) of scale. Unknown at this time. Singulair Tablet (Montelukast Sodium) 10 Mg Tablet 10 Mg PO HS 11/24/18 Reported Atorvastatin Calcium 40 Mg Tablet 1 Tab PO QHS 11/24/18 Reported Torsemide 20 Mg Tablet 2 Tab PO BID 11/24/18 Reported Cymbalta (Duloxetine Hcl) 30 Mg Capsule. 1 Cap PO BID 11/24/18 Reported Daily Jalen (Multivitamin) 1 Each Tablet 1 Each PO DAILY 11/24/18 Reported Comments CXR / IMPRESSION: Increase in diffuse infiltrate. CTA chest IMPRESSION: 1. No evidence of pulmonary thromboembolic disease. 2. Multifocal bilateral groundglass opacities and consolidations, consistent with patient's history of infection. 3. Dilated pulmonary trunk, which can be seen with pulmonary hypertension. Impression . IMPRESSION: 1. Acute hypoxemic respiratory failure secondary to COVID-19 viral pneumonia./ ALI/ARDS 2. COVID-[address] angiogram, no evidence of pulmonary embolism. 4. Chronic kidney disease, on peritoneal dialysis. 5. Morbid obesity. 6. Obstructive sleep apnea. 7. Hyperlipidemia. 8. Hypertension. Plan . PLAN: Continue supplemental oxygen to keep oxygen saturations greater than 92%, currently on Vapotherm 85% and 40 liters,wean as tolerated Follow chest x-ray/ABG prn Pt. has completed full course of steroids Follow ID recs for ABX, currently off ABX, ID has signed off at this time PT. has completed Full course of remdesivir Follow nephrology recommendations in regards to peritoneal dialysis Physical therapy/Occupational Therapy DVT/GI prophylaxis Discussed with RN and RT Social work for D/C planning ESSENCE FERRARO MD May 11, 2020 08:56
[2020-05-11] MEDS: SEVELAMER CARBONATE 800 MG TABLET. PO SCH ×3 (10:29→16:39)
[2020-05-11] MEDS: POTASSIUM CHLORIDE 20 MEQ TABLET.ER. PO SCH (10:30)
[2020-05-11] MEDS: CARVEDILOL 12.5 MG TABLET. PO SCH ×2 (10:30→16:39)
[2020-05-11] MEDS: DULoxetine HCL 30 MG CAPSULE.DR PO SCH ×2 (10:30→23:12)
[2020-05-11] MEDS: PANTOPRAZOLE 40 MG TABLET.DR. PO SCH (10:30)
[2020-05-11] MEDS: LACTOBACILLUS RHAMNOSUS GG 1 CAPSULE. PO SCH ×2 (10:30→23:12)
[2020-05-11] MEDS: TORSEMIDE 20 MG TABLET. PO SCH ×2 (10:30→16:39)
[2020-05-11] MEDS: FOLIC/VIT B COMP W-C (RENAL) TABLET. PO SCH (10:30)
[2020-05-11] MEDS: DOCUSATE SODIUM 100 MG CAPSULE. PO SCH ×2 (10:30→23:04)
[2020-05-11] MEDS: LINAGLIPTIN 5 MG TABLET PO SCH (10:30)
[2020-05-11] MEDS: ZINC SULFATE 220 MG CAPSULE. PO SCH (10:30)
[2020-05-11] MEDS: MULTIVITAMIN with MINERAL TABLET. PO SCH (10:30)
[2020-05-11] MEDS: NYSTATIN TOPICAL POWDER 15GM BOTTLE. TP SCH ×2 (10:31→23:13)
[2020-05-11] MEDS: INSULIN GLARGINE SYRINGE. SQ SCH (11:21)
--- NOTE | 2020-05-11 14:08 | PDOC ---
Dialysis Progress Note Date of Service: DATE: 05/11/20 TIME: 14:06 Dialysis Note Dialysis Note Pt remains in COVID-19 isolation, Patient remains awake alert and oriented at this time ESRD - ct on peritoneal dialysis per home regimen: Discussed with net making supervisor Azotemia- BUN up 2/2 Steroids, decd on 05/06, monitor trend and for Uremic S/s for now SEv. HypoALbuminemia - encourage PO Protein. IV ALb prn COVID-19 infection Vitals Vital Signs Vital Signs Date Time Temp Pulse Resp B/P (MAP) Pulse Ox O2 Delivery O2 Flow Rate FiO2 05/11/20 12:00 Nasal Cannula 40.0 05/11/20 12:00 96 27 124/67 (86) 95 05/11/20 07:00 98.4 98.4 Labs Last Labs Laboratory Tests Test 05/10/20 09:25 05/10/20 13:01 05/10/20 18:13 05/10/20 21:10 Glucose (Fingerstick) 161 mg/dL (70-99) 159 mg/dL (70-99) 171 mg/dL (70-99) 201 mg/dL (70-99) Test 05/11/20 08:22 Glucose (Fingerstick) 106 mg/dL (70-99) Laboratory Tests Test 05/10/20 18:13 05/10/20 21:10 05/11/20 08:22 Glucose (Fingerstick) 171 mg/dL (70-99) 201 mg/dL (70-99) 106 mg/dL (70-99) Assessment Assessment Problems Medical Problems: (1) CAP (community acquired pneumonia) Status: Acute (2) COVID-19 Status: Acute Plan Plan of Care Problems Medical Problems: (1) CAP (community acquired pneumonia) Status: Acute (2) COVID-19 Status: Acute LEYDI ALBERT MD May 11, 2020 14:08
[2020-05-11] MEDS ORDERED: MAGNESIUM SULFATE 2GM 50 ML IV PRN (14:15)
--- NOTE | 2020-05-11 17:47 | PN ---
DATE: 05/11/2020 LOCATION: She is in room ICU 108. SUBJECTIVE: The patient remains on Vapotherm 85% on 40 liters of oxygen in the ICU with acute hypoxic respiratory failure due to COVID-19 pneumonia. The patient is compromised by diabetes, morbid obesity, obstructive sleep apnea, chronic kidney disease for which she is on peritoneal dialysis. Nursing is only concerned of the fact that she does not want to move around much, wants to just lay. OBJECTIVE: VITAL SIGNS: Stable. She is afebrile. O2 sats in the 90s on oxygen discussed above. CHEST: With decreased breath sounds. HEART: Regular. ABDOMEN: Benign. IMPRESSION: 1. Acute hypoxic respiratory failure due to COVID-19 pneumonia. 2. End-stage renal disease, on peritoneal dialysis. 3. Obstructive sleep apnea. 4. Morbid obesity. 5. Diabetes with decent blood sugars. 6. Hyperlipidemia. 7. Hypertension. PLAN: Continue supportive care. Wean oxygen as tolerated. Follow clinical course closely. JAILEEN HINTON MD DR: KHADAR/batool JOB#: [id number] / [id number]
[2020-05-11] MEDS: STERILE WATER for RESP 1,000 ML BAG. INH PRN (20:37)
[2020-05-11] MEDS: SIMETHICONE 80 MG TAB.CHEW PO PRN (23:04)
[2020-05-11] MEDS: GABAPENTIN 300 MG CAPSULE. PO SCH (23:11)
[2020-05-12] VITALS (24 sets, daily range): BP systolic 101–140; BP diastolic 52–82
[2020-05-12] MEDS: SIMETHICONE 80 MG TAB.CHEW PO PRN ×2 (05:35→18:37)
[2020-05-12] MEDS: HEPARIN for SUB-Q USE 5,000 UNIT/ML VIAL. SQ SCH ×3 (05:36→21:50)
[2020-05-12 06:13] LABS: ALBUMIN 1.9 g/dL (3.4-5.0); CALCIUM 9.1 mg/dL (8.5-10.1); CREATININE 4.7 mg/dL (0.6-1.0); GFR 9.6; PHOSPHORUS 5.3 mg/dL (2.6-4.7); POTASSIUM 3.7 mmol/L (3.5-5.1)
[2020-05-12] MEDS: ZINC SULFATE 220 MG CAPSULE. PO SCH (09:00)
[2020-05-12] MEDS: DULoxetine HCL 30 MG CAPSULE.DR PO SCH ×2 (09:00→21:49)
[2020-05-12] MEDS: CARVEDILOL 12.5 MG TABLET. PO SCH ×2 (09:01→18:38)
[2020-05-12] MEDS: PANTOPRAZOLE 40 MG TABLET.DR. PO SCH (09:02)
[2020-05-12] MEDS: MULTIVITAMIN with MINERAL TABLET. PO SCH (09:02)
[2020-05-12] MEDS: FOLIC/VIT B COMP W-C (RENAL) TABLET. PO SCH (09:02)
[2020-05-12] MEDS: LINAGLIPTIN 5 MG TABLET PO SCH (09:02)
[2020-05-12] MEDS: LACTOBACILLUS RHAMNOSUS GG 1 CAPSULE. PO SCH ×2 (09:02→21:49)
[2020-05-12] MEDS: SEVELAMER CARBONATE 800 MG TABLET. PO SCH ×3 (09:02→18:38)
[2020-05-12] MEDS: TORSEMIDE 20 MG TABLET. PO SCH ×2 (09:02→18:38)
[2020-05-12] MEDS: DOCUSATE SODIUM 100 MG CAPSULE. PO SCH ×2 (09:02→21:49)
[2020-05-12] MEDS: POTASSIUM CHLORIDE 20 MEQ TABLET.ER. PO SCH (09:03)
[2020-05-12] MEDS: STERILE WATER for RESP 1,000 ML BAG. INH PRN ×2 (09:06→17:28)
[2020-05-12] MEDS: INSULIN GLARGINE SYRINGE. SQ SCH (09:08)
[2020-05-12] MEDS: NYSTATIN TOPICAL POWDER 15GM BOTTLE. TP SCH ×2 (09:39→22:07)
--- NOTE | 2020-05-12 11:06 | PDOC ---
PULMONARY PROGRESS NOTES DATE: 05/12/20 TIME: 11:05 Subjective Remains on vapotherm at 40 liters 100% Experienced hypoxia overnight, afebrile No overnight concerns from nursing Vitals Vital Signs Date Time Temp Pulse Resp B/P (MAP) Pulse Ox O2 Delivery O2 Flow Rate FiO2 05/12/20 10:00 92 18 138/72 (94) 93 Nasal Cannula 40.0 05/12/20 08:00 97.9 97.9 Comments Patient is seen during - pandemic, visual exam performed on vapotherm No accessory muscle use no distress No obvious rash or edema General: Alert, No acute distress Neuro Exam: Alert, Oriented Labs Laboratory Tests Test 05/10/20 13:01 05/10/20 18:13 05/10/20 21:10 05/11/20 08:22 Glucose (Fingerstick) 159 mg/dL (70-99) 171 mg/dL (70-99) 201 mg/dL (70-99) 106 mg/dL (70-99) Test 05/11/20 23:26 05/12/20 05:00 Glucose (Fingerstick) 214 mg/dL (70-99) Hemoglobin 10.6 g/dL (12.0-15.5) Sodium Level 130 mmol/L (136-145) Potassium Level 3.7 mmol/L (3.5-5.1) Chloride Level 93 mmol/L (98-107) Carbon Dioxide Level 25 mmol/L (21-32) Anion Gap 12 (6-14) Blood Urea Nitrogen 102 mg/dL (7-20) Creatinine 4.7 mg/dL (0.6-1.0) Estimated GFR (Cockcroft-Gault) 9.6 Glucose Level 200 mg/dL (70-99) Calcium Level 9.1 mg/dL (8.5-10.1) Phosphorus Level 5.3 mg/dL (2.6-4.7) Magnesium Level 2.8 mg/dL (1.8-2.4) Albumin 1.9 g/dL (3.4-5.0) Laboratory Tests Test 05/11/20 23:26 05/12/20 05:00 Glucose (Fingerstick) 214 mg/dL (70-99) Hemoglobin 10.6 g/dL (12.0-15.5) Sodium Level 130 mmol/L (136-145) Potassium Level 3.7 mmol/L (3.5-5.1) Chloride Level 93 mmol/L (98-107) Carbon Dioxide Level 25 mmol/L (21-32) Anion Gap 12 (6-14) Blood Urea Nitrogen 102 mg/dL (7-20) Creatinine 4.7 mg/dL (0.6-1.0) Estimated GFR (Cockcroft-Gault) 9.6 Glucose Level 200 mg/dL (70-99) Calcium Level 9.1 mg/dL (8.5-10.1) Phosphorus Level 5.3 mg/dL (2.6-4.7) Magnesium Level 2.8 mg/dL (1.8-2.4) Albumin 1.9 g/dL (3.4-5.0) Medications Active Scripts Medications Dose Route/Sig Max Daily Dose Days Date Category Dose Instructions Gabapentin 600 Mg Tablet 600 Mg PO HS 04/27/20 Reported Gabapentin (Gabapentin) 300 Mg Capsule 300 Mg PO DAILY 04/27/20 Reported Lantus Solostar (Insulin Glargine,Hum.rec.anlog) 100 Unit/1 Ml Insuln.pen 75 Unit SQ BID 09/19/19 Reported Januvia (Sitagliptin Phosphate) 25 Mg Tablet 25 Mg PO DAILY 09/19/19 Reported Novolog (Insulin Aspart) 100 Unit/1 Ml Cartridge 0 SQ TIDAC 01/26/19 Reported Sliding scale; patient has printout (at home) of scale. Unknown at this time. Singulair Tablet (Montelukast Sodium) 10 Mg Tablet 10 Mg PO HS 11/24/18 Reported Atorvastatin Calcium 40 Mg Tablet 1 Tab PO QHS 11/24/18 Reported Torsemide 20 Mg Tablet 2 Tab PO BID 11/24/18 Reported Cymbalta (Duloxetine Hcl) 30 Mg Capsule.dr 1 Cap PO BID 11/24/18 Reported Daily Jalen (Multivitamin) 1 Each Tablet 1 Each PO DAILY 11/24/18 Reported Comments CXR 1/ IMPRESSION: Increase in diffuse infiltrate. CTA chest IMPRESSION: 1. No evidence of pulmonary thromboembolic disease. 2. Multifocal bilateral groundglass opacities and consolidations, consistent with patient's history of infection. 3. Dilated pulmonary trunk, which can be seen with pulmonary hypertension. Impression . IMPRESSION: 1. Acute hypoxemic respiratory failure secondary to COVID-19 viral pneumonia./ ALI/ARDS 2. COVID-[address] angiogram, no evidence of pulmonary embolism. 4. Chronic kidney disease, on peritoneal dialysis. 5. Morbid obesity. 6. Obstructive sleep apnea. 7. Hyperlipidemia. 8. Hypertension. Plan . PLAN: Continue supplemental oxygen to keep oxygen saturations greater than 92%, currently on [id number]% and 40 L Follow chest x-ray/ABG prn Pt. has completed full course of steroids Follow ID recs for ABX, currently off ABX, ID has signed off at this time PT. has completed Full course of remdesivir Follow nephrology recommendations in regards to peritoneal dialysis Physical therapy/Occupational Therapy DVT/GI prophylaxis Discussed with RN and RT Social work for D/C planning ESSENCE FERRARO MD May 12, 2020 11:06
--- NOTE | 2020-05-12 12:18 | PN ---
DATE: 05/12/2020 LOCATION: She is in room ICU 108. SUBJECTIVE: This 55-year-old white female remains in the ICU on Vapotherm at 100% and 40 liters of oxygen with O2 sats in the 90s due to acute respiratory failure due to COVID-19 pneumonia. The patient is compromised still by diabetes, morbid obesity, obstructive sleep apnea, and end-stage renal disease for which she is on peritoneal dialysis. Nursing reports minimal activity and dramatic desats if the oxygen is off for any length of time down to less than 60%. OBJECTIVE: VITAL SIGNS: Stable. She is afebrile. O2 sats are in the 90s with the supplemental oxygen. CHEST: Decreased breath sounds. HEART: Regular. ABDOMEN: Benign. IMPRESSION: 1. Acute hypoxic respiratory failure due to COVID-19 pneumonia. 2. End-stage renal disease, on peritoneal dialysis. 3. Obstructive sleep apnea. 4. Morbid obesity. 5. Diabetes with decent blood sugars. 6. Hyperlipidemia. 7. Hypertension. PLAN: Continue supportive care and follow clinical course carefully. JAILENE HINTON MD DR: KHADAR/batool JOB#: [id number] / [id number]
--- NOTE | 2020-05-12 13:30 | PDOC ---
Dialysis Progress Note Date of Service: DATE: 05/12/20 TIME: 13:28 Dialysis Note Dialysis Note Pt remains in COVID-19 isolation, Patient remains awake alert and oriented at this time. Reportedly drops her O2 sats with minimal movement. Oral intake is marginal Physical exam is limited due to COVID-19 isolation. I have reviewed documentation by other providers and corroborated with the ICU nurse. ESRD - ct on peritoneal dialysis per home regimen: Discussed with forging press lever tender. Azotemia appears to be improving off of steroids SEv. HypoALbuminemia - encourage PO Protein. IV ALb prn COVID-19 infection Vitals Vital Signs Vital Signs Date Time Temp Pulse Resp B/P (MAP) Pulse Ox O2 Delivery O2 Flow Rate FiO2 05/12/20 12:05 97 VAPOTHERM 40.0 05/12/20 10:00 92 18 138/72 (94) 05/12/20 08:00 97.9 97.9 Labs Last Labs Laboratory Tests Test 05/10/20 18:13 05/10/20 21:10 05/11/20 08:22 05/11/20 23:26 Glucose (Fingerstick) 171 mg/dL (70-99) 201 mg/dL (70-99) 106 mg/dL (70-99) 214 mg/dL (70-99) Test 05/12/20 05:00 Hemoglobin 10.6 g/dL (12.0-15.5) Sodium Level 130 mmol/L (136-145) Potassium Level 3.7 mmol/L (3.5-5.1) Chloride Level 93 mmol/L (98-107) Carbon Dioxide Level 25 mmol/L (21-32) Anion Gap 12 (6-14) Blood Urea Nitrogen 102 mg/dL (7-20) Creatinine 4.7 mg/dL (0.6-1.0) Estimated GFR (Cockcroft-Gault) 9.6 Glucose Level 200 mg/dL (70-99) Calcium Level 9.1 mg/dL (8.5-10.1) Phosphorus Level 5.3 mg/dL (2.6-4.7) Magnesium Level 2.8 mg/dL (1.8-2.4) Albumin 1.9 g/dL (3.4-5.0) Laboratory Tests Test 05/11/20 23:26 05/12/20 05:00 Glucose (Fingerstick) 214 mg/dL (70-99) Hemoglobin 10.6 g/dL (12.0-15.5) Sodium Level 130 mmol/L (136-145) Potassium Level 3.7 mmol/L (3.5-5.1) Chloride Level 93 mmol/L (98-107) Carbon Dioxide Level 25 mmol/L (21-32) Anion Gap 12 (6-14) Blood Urea Nitrogen 102 mg/dL (7-20) Creatinine 4.7 mg/dL (0.6-1.0) Estimated GFR (Cockcroft-Gault) 9.6 Glucose Level 200 mg/dL (70-99) Calcium Level 9.1 mg/dL (8.5-10.1) Phosphorus Level 5.3 mg/dL (2.6-4.7) Magnesium Level 2.8 mg/dL (1.8-2.4) Albumin 1.9 g/dL (3.4-5.0) Assessment Assessment Problems Medical Problems: (1) CAP (community acquired pneumonia) Status: Acute (2) COVID-19 Status: Acute Plan Plan of Care Problems Medical Problems: (1) CAP (community acquired pneumonia) Status: Acute (2) COVID-19 Status: Acute LEYDI ALBERT MD May 12, 2020 13:30
[2020-05-12] MEDS: LACTULOSE 20 GM/30 ML SOLUTION. PO PRN (15:41)
[2020-05-12] MEDS: GABAPENTIN 300 MG CAPSULE. PO SCH (21:49)
[2020-05-12] MEDS: CYCLOBENZAPRINE 10 MG TABLET. PO PRN (21:49)
[2020-05-13] VITALS (23 sets, daily range): BP systolic 93–150; BP diastolic 50–99
[2020-05-13] MEDS: ACETAMINOPHEN 325 MG TABLET. PO PRN (00:27)
[2020-05-13] MEDS: STERILE WATER for RESP 1,000 ML BAG. INH PRN ×2 (06:08→18:46)
[2020-05-13] MEDS: HEPARIN for SUB-Q USE 5,000 UNIT/ML VIAL. SQ SCH ×3 (06:10→22:24)
[2020-05-13 07:53] LABS: CALCIUM 9.4 mg/dL (8.5-10.1); PHOSPHORUS 5.4 mg/dL (2.6-4.7); POTASSIUM 3.9 mmol/L (3.5-5.1)
--- NOTE | 2020-05-13 08:26 | PDOC ---
Provider Note Date of Service: DATE: 05/13/20 TIME: 08:25 Provider Note glucose now around 200 on 60 u levemir, inc to 70 u now- rest same Justifications for Admission Other Justification VERNA GARCIA MD May 13, 2020 08:26
[2020-05-13] MEDS: FOLIC/VIT B COMP W-C (RENAL) TABLET. PO SCH (08:59)
[2020-05-13] MEDS: SIMETHICONE 80 MG TAB.CHEW PO PRN (08:59)
[2020-05-13] MEDS: INSULIN GLARGINE SYRINGE. SQ SCH ×2 (09:00→09:05)
[2020-05-13] MEDS: LACTOBACILLUS RHAMNOSUS GG 1 CAPSULE. PO SCH ×2 (09:00→20:42)
[2020-05-13] MEDS: PANTOPRAZOLE 40 MG TABLET.DR. PO SCH (09:00)
[2020-05-13] MEDS: ZINC SULFATE 220 MG CAPSULE. PO SCH (09:00)
[2020-05-13] MEDS: CARVEDILOL 12.5 MG TABLET. PO SCH ×2 (09:00→17:13)
[2020-05-13] MEDS: POTASSIUM CHLORIDE 20 MEQ TABLET.ER. PO SCH (09:00)
[2020-05-13] MEDS: LINAGLIPTIN 5 MG TABLET PO SCH (09:00)
[2020-05-13] MEDS: NYSTATIN TOPICAL POWDER 15GM BOTTLE. TP SCH ×2 (09:00→20:47)
[2020-05-13] MEDS: MULTIVITAMIN with MINERAL TABLET. PO SCH (09:01)
[2020-05-13] MEDS: TORSEMIDE 20 MG TABLET. PO SCH ×2 (09:01→15:20)
[2020-05-13] MEDS: DOCUSATE SODIUM 100 MG CAPSULE. PO SCH (09:01)
[2020-05-13] MEDS: SEVELAMER CARBONATE 800 MG TABLET. PO SCH ×3 (09:01→17:12)
[2020-05-13] MEDS: DULoxetine HCL 30 MG CAPSULE.DR PO SCH ×2 (09:01→20:42)
--- NOTE | 2020-05-13 09:54 | PDOC ---
DATE OF SERVICE DATE: 05/13/20 TIME: 09:53 SUBJECTIVE ROS stable, reportedly drops her O2 sats with minimal movement. OBJECTIVE Vital Signs Vital Signs Date Time Temp Pulse Resp B/P (MAP) Pulse Ox O2 Delivery O2 Flow Rate FiO2 05/13/20 09:00 110/70 05/13/20 08:05 95 VAPOTHERM 40.0 05/13/20 06:00 85 24 05/13/20 04:00 98.5 98.5 I & 0 Intake and Output 05/13/20 07:00 Intake Total 1105 ml Output Total 610 ml Balance 495 ml Intake Oral 1105 ml Output Urine Total 610 ml # Bowel Movements 1 PHYSICAL EXAM Physical Exam GENERAL: NAD HEENT: Anicteric. on vapotherm NECK: Supple, no JVD. LUNGS: Decreased breath sounds. No wheezing. HEART: S1, S2. No gallops or murmurs. ABDOMEN: Soft bowel sounds present nontender , PD catheter + , no redness or discharge from exit site per color maker formulator EXTREMITIES: No edema, no cyanosis. DERMATOLOGIC: Warm, dry. No generalized rash. NEUROLOGIC: awake, alert Toro + DIAGNOSIS/ASSESSMENT Assessment & Plan ESRD - on peritoneal dialysis at [facility]; has some RRF seen on PD, tolerating well, No concerns voiced by color maker formulator, has significant RRF no last fill, Continue APD as ordered, Edward Lorenz Azotemia- BUN up 2/2 Steroids , dced 05/06, improving COVID-19 infection- Status post remdesivir, steroids DC'd. Acute hypoxic respiratory failure due to COVID-19 viral pneumonia- on Vapotherm Diabetes mellitus. Morbid obesity. History of obstructive sleep apnea. Hypertension- BP stable COMMENT/RELEVANT DATA Meds Current Medications Medications (Trade) Dose Ordered Sig/Mya Start Time Stop Time Status Last Admin Dose Admin Acetaminophen (Tylenol) 650 mg PRN Q4HRS PRN 04/27/20 23:15 05/13/20 00:27 650 MG Amino Acids/ Glycerin/ Electrolytes 1,000 ml @ 80 mls/hr [id number] 05/04/20 10:15 05/07/20 12:31 DC 05/07/20 05:27 80 MLS/HR Ascorbic Acid (Vitamin C) 1,000 mg DAILY 04/28/20 13:00 04/30/20 08:57 DC 04/30/20 08:11 1,000 MG Atorvastatin Calcium (Lipitor) 40 mg QHS 04/27/20 21:00 04/30/20 08:57 DC 04/29/20 19:57 40 MG Azithromycin 250 ml @ 250 mls/hr 1X ONCE 04/26/20 23:00 04/26/20 23:59 DC 04/26/20 23:18 250 MLS/HR Carvedilol (Coreg) 25 mg BIDWMEALS 05/01/20 17:00 05/13/20 09:00 25 MG Ceftriaxone Sodium (Rocephin) 1 gm Q24H 04/28/20 13:00 05/03/20 09:20 DC 05/02/20 12:20 1 GM Cyclobenzaprine HCl (Flexeril) 10 mg PRN QID PRN 04/28/20 21:00 05/12/20 21:49 10 MG Dexamethasone (Decadron) 4 mg DAILYWBKFT 05/04/20 08:00 05/06/20 08:33 DC 05/06/20 08:15 4 MG Dextrose (Dextrose 50%-Water Syringe) 12.5 gm PRN Q15MIN PRN 04/27/20 04:00 05/03/20 18:50 25 GM Docusate Sodium (Colace) 100 mg BID 05/01/20 12:45 05/13/20 09:01 100 MG Doxycycline Hyclate (Vibra-Tab) 100 mg BID 04/28/20 13:00 05/03/20 09:20 DC 05/03/20 08:36 100 MG Duloxetine HCl (Cymbalta) 30 mg BID 04/27/20 09:00 05/13/20 09:01 30 MG Enoxaparin Sodium (Lovenox 30mg Syringe) 30 mg Q24H 04/28/20 13:00 04/28/20 12:38 DC Gabapentin (Neurontin) 600 mg QHS 04/27/20 04:30 05/12/20 21:49 600 MG Heparin Sodium (Porcine) (Heparin Sodium) 5,000 unit Q8HRS 04/28/20 14:00 05/13/20 06:10 5,000 UNIT Info (CONTRAST GIVEN -- Rx MONITORING) 1 each PRN DAILY PRN 04/26/20 20:45 04/28/20 20:44 DC Insulin Glargine (Lantus Syringe) 70 unit DAILY 05/13/20 08:30 05/13/20 09:05 70 UNIT Insulin Human Lispro (HumaLOG) 20 units PRN BFRMEALHC PRN 05/06/20 03:00 05/13/20 09:05 20 UNITS Iohexol (Omnipaque 350 Mg/ml) 100 ml 1X ONCE 04/26/20 20:45 04/26/20 20:46 DC 04/26/20 21:20 100 ML Lactobacillus Rhamnosus (Culturelle) 1 cap BID 04/29/20 21:00 05/13/20 09:00 1 CAP Lactulose (Lactulose) 20 gm PRN 1X PRN 05/03/20 13:45 05/12/20 15:41 20 GM Linagliptin (Tradjenta) 5 mg DAILY 04/27/20 09:00 05/13/20 09:00 5 MG Magnesium Sulfate 50 ml @ 25 mls/hr PRN DAILY PRN 05/11/20 14:15 Montelukast Sodium (Singulair) 10 mg HS 04/27/20 21:00 04/30/20 08:57 DC 04/29/20 19:57 10 MG Multivitamins (Thera M Plus) 1 tab DAILY 04/27/20 09:00 05/13/20 09:01 1 TAB Non-Formulary Medication (Gabapentin ) 600 mg HS 04/27/20 21:00 UNV Nystatin (Nystop) 1 jackie BID 05/08/20 21:00 UNV Ondansetron HCl (Zofran Odt) 4 mg PRN Q6HRS PRN 04/28/20 12:15 05/10/20 00:08 4 MG Ondansetron HCl (Zofran) 4 mg PRN Q8HRS PRN 04/26/20 22:45 04/27/20 22:44 DC Pantoprazole Sodium (PROTONIX VIAL for IV PUSH) 40 mg DAILY 05/02/20 09:00 05/07/20 15:25 DC 05/07/20 08:22 40 MG Pantoprazole Sodium (Protonix) 40 mg DAILYAC 05/08/20 07:30 05/13/20 09:00 40 MG Potassium Chloride/Water 100 ml @ 100 mls/hr Q1H 05/01/20 15:00 05/01/20 18:59 DC 05/01/20 19:55 100 MLS/HR Potassium Chloride (Klor-Con) 20 meq DAILYWBKFT 05/02/20 08:00 05/13/20 09:00 20 MEQ Remdesivir 100 mg/ Sodium Chloride 230 ml @ 460 mls/hr Q24H 04/29/20 14:00 05/02/20 14:29 DC 05/02/20 14:27 460 MLS/HR Remdesivir 200 mg/ Sodium Chloride 210 ml @ 210 mls/hr 1X ONCE 04/28/20 14:00 04/28/20 14:59 DC 04/28/20 15:39 210 MLS/HR Sevelamer Carbonate (Renvela) 1,600 mg TIDWMEALS 05/02/20 17:00 05/13/20 09:01 800 MG Simethicone (Gas-X) 80 mg PRN AFTMEALHC PRN 05/10/20 15:30 05/13/20 08:59 80 MG Sodium Chloride 1,000 ml @ 1,000 mls/hr 1X ONCE 04/26/20 19:15 04/26/20 20:14 DC 04/26/20 19:17 1,000 MLS/HR Sterile Water (WATER for RESP) 1,000 ml CONT PRN 04/30/20 20:30 05/13/20 06:08 1,000 ML Temazepam (Restoril) 15 mg PRN QHS PRN 04/28/20 21:00 04/29/20 06:48 DC 04/28/20 22:48 15 MG Torsemide (Demadex) 40 mg [id number] 04/27/20 09:00 05/13/20 09:01 40 MG Vitamin B Complex/ Vitamin C (Kelly-Jalen) 1 tab DAILY 04/29/20 14:00 05/13/20 08:59 1 TAB Vitamin D (Vitamin D3) 500 unit DAILY 04/28/20 13:00 04/30/20 08:57 DC 04/30/20 08:10 500 UNIT Zinc Sulfate (Orazinc) 220 mg DAILY 04/28/20 13:00 05/13/20 09:00 220 MG Lab Laboratory Tests Test 05/12/20 13:41 05/12/20 18:44 05/12/20 21:57 05/13/20 07:01 Glucose (Fingerstick) 272 mg/dL (70-99) 209 mg/dL (70-99) 236 mg/dL (70-99) Sodium Level 133 mmol/L (136-145) Potassium Level 3.9 mmol/L (3.5-5.1) Chloride Level 95 mmol/L (98-107) Carbon Dioxide Level 26 mmol/L (21-32) Anion Gap 12 (6-14) Blood Urea Nitrogen 94 mg/dL (7-20) Creatinine 5.0 mg/dL (0.6-1.0) Estimated GFR (Cockcroft-Gault) 9.0 Glucose Level 203 mg/dL (70-99) Calcium Level 9.4 mg/dL (8.5-10.1) Phosphorus Level 5.4 mg/dL (2.6-4.7) Magnesium Level 2.7 mg/dL (1.8-2.4) Albumin 2.0 g/dL (3.4-5.0) Results All relevant outside records, renal labs, imaging studies, telemetry/EKG's were reviewed. Other COMPARISON: 04/30/2020 FINDINGS: A frontal view of the chest was obtained. There has been interval increase in diffuse mixed interstitial and alveolar infiltrate with areas of partial consolidation. There are stable small pleural effusions. There is a stable cardiac silhouette. There is no pneumothorax. IMPRESSION: Increase in diffuse infiltrate. Justicifation of Admission Dx: Justifications for Admission: Justification of Admission Dx: N/A FLORINA TRONCOSO MD May 13, 2020 09:54
--- NOTE | 2020-05-13 11:25 | PDOC ---
PULMONARY PROGRESS NOTES DATE: 05/13/20 TIME: 11:25 Subjective Remains on vapotherm at 40 liters 100% afebrile No overnight concerns from nursing Vitals Vital Signs Date Time Temp Pulse Resp B/P (MAP) Pulse Ox O2 Delivery O2 Flow Rate FiO2 05/13/20 10:00 88 28 116/61 (79) 96 Vapotherm 40.0 05/13/20 08:00 98.1 98.1 Comments Patient is seen during pandemic, visual exam performed on vapotherm No accessory muscle use no distress No obvious rash or edema General: Alert, No acute distress Neuro Exam: Alert, Oriented Labs Laboratory Tests Test 05/11/20 23:26 05/12/20 05:00 05/12/20 13:41 05/12/20 18:44 Glucose (Fingerstick) 214 mg/dL (70-99) 272 mg/dL (70-99) 209 mg/dL (70-99) Hemoglobin 10.6 g/dL (12.0-15.5) Sodium Level 130 mmol/L (136-145) Potassium Level 3.7 mmol/L (3.5-5.1) Chloride Level 93 mmol/L (98-107) Carbon Dioxide Level 25 mmol/L (21-32) Anion Gap 12 (6-14) Blood Urea Nitrogen 102 mg/dL (7-20) Creatinine 4.7 mg/dL (0.6-1.0) Estimated GFR (Cockcroft-Gault) 9.6 Glucose Level 200 mg/dL (70-99) Calcium Level 9.1 mg/dL (8.5-10.1) Phosphorus Level 5.3 mg/dL (2.6-4.7) Magnesium Level 2.8 mg/dL (1.8-2.4) Albumin 1.9 g/dL (3.4-5.0) Test 05/12/20 21:57 05/13/20 07:01 Glucose (Fingerstick) 236 mg/dL (70-99) Sodium Level 133 mmol/L (136-145) Potassium Level 3.9 mmol/L (3.5-5.1) Chloride Level 95 mmol/L (98-107) Carbon Dioxide Level 26 mmol/L (21-32) Anion Gap 12 (6-14) Blood Urea Nitrogen 94 mg/dL (7-20) Creatinine 5.0 mg/dL (0.6-1.0) Estimated GFR (Cockcroft-Gault) 9.0 Glucose Level 203 mg/dL (70-99) Calcium Level 9.4 mg/dL (8.5-10.1) Phosphorus Level 5.4 mg/dL (2.6-4.7) Magnesium Level 2.7 mg/dL (1.8-2.4) Albumin 2.0 g/dL (3.4-5.0) Laboratory Tests Test 05/12/20 13:41 05/12/20 18:44 05/12/20 21:57 05/13/20 07:01 Glucose (Fingerstick) 272 mg/dL (70-99) 209 mg/dL (70-99) 236 mg/dL (70-99) Sodium Level 133 mmol/L (136-145) Potassium Level 3.9 mmol/L (3.5-5.1) Chloride Level 95 mmol/L (98-107) Carbon Dioxide Level 26 mmol/L (21-32) Anion Gap 12 (6-14) Blood Urea Nitrogen 94 mg/dL (7-20) Creatinine 5.0 mg/dL (0.6-1.0) Estimated GFR (Cockcroft-Gault) 9.0 Glucose Level 203 mg/dL (70-99) Calcium Level 9.4 mg/dL (8.5-10.1) Phosphorus Level 5.4 mg/dL (2.6-4.7) Magnesium Level 2.7 mg/dL (1.8-2.4) Albumin 2.0 g/dL (3.4-5.0) Medications Active Scripts Medications Dose Route/Sig Max Daily Dose Days Date Category Dose Instructions Gabapentin 600 Mg Tablet 600 Mg PO HS 04/27/20 Reported Gabapentin (Gabapentin) 300 Mg Capsule 300 Mg PO DAILY 04/27/20 Reported Lantus Solostar (Insulin Glargine,Hum.rec.anlog) 100 Unit/1 Ml Insuln.pen 75 Unit SQ BID 09/19/19 Reported Januvia (Sitagliptin Phosphate) 25 Mg Tablet 25 Mg PO DAILY 09/19/19 Reported Novolog (Insulin Aspart) 100 Unit/1 Ml Cartridge 0 SQ TIDAC 01/26/19 Reported Sliding scale; patient has printout (at home) of scale. Unknown at this time. Singulair Tablet (Montelukast Sodium) 10 Mg Tablet 10 Mg PO HS 11/24/18 Reported Atorvastatin Calcium 40 Mg Tablet 1 Tab PO QHS 11/24/18 Reported Torsemide 20 Mg Tablet 2 Tab PO BID 11/24/18 Reported Cymbalta (Duloxetine Hcl) 30 Mg Capsule.dr 1 Cap PO BID 11/24/18 Reported Daily Jalen (Multivitamin) 1 Each Tablet 1 Each PO DAILY 11/24/18 Reported Comments CXR 05/11 IMPRESSION: Increase in diffuse infiltrate. CTA chest IMPRESSION: 1. No evidence of pulmonary thromboembolic disease. 2. Multifocal bilateral groundglass opacities and consolidations, consistent with patient's history of infection. 3. Dilated pulmonary trunk, which can be seen with pulmonary hypertension. Impression . IMPRESSION: 1. Acute hypoxemic respiratory failure secondary to COVID-19 viral pneumonia./ ALI/ARDS 2. COVID-[address] angiogram, no evidence of pulmonary embolism. 4. Chronic kidney disease, on peritoneal dialysis. 5. Morbid obesity. 6. Obstructive sleep apnea. 7. Hyperlipidemia. 8. Hypertension. Plan . PLAN: Continue supplemental oxygen to keep oxygen saturations greater than 92%, currently on [id number]% and 40 L Follow chest x-ray/ABG prn Pt. has completed full course of steroids Remains off ABX PT. has completed Full course of remdesivir Follow nephrology recommendations in regards to peritoneal dialysis Physical therapy/Occupational Therapy DVT/GI prophylaxis Discussed with RN and RT Social work for D/C planning ESSENCE FERRARO MD May 13, 2020 11:25
--- NOTE | 2020-05-13 15:47 | NUR ---
SS following up with discharge planning. SS reviewed pt chart and discussed with pt RN. Pt is currently on Vapotherm at 100%. COVID19 positive. Peritoneal dialysis. PT/OT recommended assisted unit. SS received referral for LTACH screen. SS phoned and faxed referrals to [facility], ; fax [phone], and [facility], ; fax [phone]. Pt's RN verifying with pt facility preference. SS will continue to follow for discharge planning.
[2020-05-13] MEDS ORDERED: POLYETHYLENE GLYCOL 3350 17 GM PACKET. PO PRN (18:00)
[2020-05-13] MEDS: GABAPENTIN 300 MG CAPSULE. PO SCH (20:42)
[2020-05-13] MEDS: TEMAZEPAM 15 MG CAPSULE PO PRN (22:24)
[2020-05-14] VITALS (24 sets, daily range): BP systolic 87–145; BP diastolic 50–95
[2020-05-14] MEDS: HEPARIN for SUB-Q USE 5,000 UNIT/ML VIAL. SQ SCH ×3 (05:33→21:26)
[2020-05-14] MEDS: STERILE WATER for RESP 1,000 ML BAG. INH PRN ×2 (06:31→19:53)
[2020-05-14] MEDS: SEVELAMER CARBONATE 800 MG TABLET. PO SCH ×3 (08:26→16:45)
[2020-05-14] MEDS: POTASSIUM CHLORIDE 20 MEQ TABLET.ER. PO SCH (08:26)
[2020-05-14] MEDS: ZINC SULFATE 220 MG CAPSULE. PO SCH (08:26)
[2020-05-14] MEDS: LINAGLIPTIN 5 MG TABLET PO SCH (08:26)
[2020-05-14] MEDS: FOLIC/VIT B COMP W-C (RENAL) TABLET. PO SCH (08:26)
[2020-05-14] MEDS: PANTOPRAZOLE 40 MG TABLET.DR. PO SCH (08:26)
[2020-05-14] MEDS: LACTOBACILLUS RHAMNOSUS GG 1 CAPSULE. PO SCH ×2 (08:26→21:24)
[2020-05-14] MEDS: MULTIVITAMIN with MINERAL TABLET. PO SCH (08:26)
[2020-05-14] MEDS: DULoxetine HCL 30 MG CAPSULE.DR PO SCH ×2 (08:26→21:25)
[2020-05-14] MEDS: TORSEMIDE 20 MG TABLET. PO SCH ×2 (08:27→16:45)
[2020-05-14] MEDS: CARVEDILOL 12.5 MG TABLET. PO SCH ×2 (08:27→16:46)
[2020-05-14] MEDS: NYSTATIN TOPICAL POWDER 15GM BOTTLE. TP SCH ×2 (09:00→21:00)
[2020-05-14 09:02] LABS: ALBUMIN 1.9 g/dL (3.4-5.0); CALCIUM 8.9 mg/dL (8.5-10.1); CREATININE 4.2 mg/dL (0.6-1.0); GFR 10.9; PHOSPHORUS 4.2 mg/dL (2.6-4.7); POTASSIUM 3.3 mmol/L (3.5-5.1)
--- NOTE | 2020-05-14 09:20 | PDOC ---
PULMONARY PROGRESS NOTES DATE: 05/14/20 TIME: 09:19 Subjective Remains on vapotherm at 40 liters 100% afebrile No overnight concerns from nursing Vitals Vital Signs Date Time Temp Pulse Resp B/P (MAP) Pulse Ox O2 Delivery O2 Flow Rate FiO2 05/14/20 08:27 96 124/78 05/14/20 06:31 97 VAPOTHERM 40.0 05/14/20 06:00 18 05/14/20 04:00 98.7 98.7 Comments Patient is seen during pandemic, visual exam performed on vapotherm No accessory muscle use no distress No obvious rash or edema General: Alert, No acute distress Neuro Exam: Alert, Oriented Labs Laboratory Tests Test 05/12/20 13:41 05/12/20 18:44 05/12/20 21:57 05/13/20 07:01 Glucose (Fingerstick) 272 mg/dL (70-99) 209 mg/dL (70-99) 236 mg/dL (70-99) Sodium Level 133 mmol/L (136-145) Potassium Level 3.9 mmol/L (3.5-5.1) Chloride Level 95 mmol/L (98-107) Carbon Dioxide Level 26 mmol/L (21-32) Anion Gap 12 (6-14) Blood Urea Nitrogen 94 mg/dL (7-20) Creatinine 5.0 mg/dL (0.6-1.0) Estimated GFR (Cockcroft-Gault) 9.0 Glucose Level 203 mg/dL (70-99) Calcium Level 9.4 mg/dL (8.5-10.1) Phosphorus Level 5.4 mg/dL (2.6-4.7) Magnesium Level 2.7 mg/dL (1.8-2.4) Albumin 2.0 g/dL (3.4-5.0) Test 05/13/20 12:27 05/13/20 17:19 05/13/20 20:45 05/14/20 08:00 Glucose (Fingerstick) 107 mg/dL (70-99) 128 mg/dL (70-99) 201 mg/dL (70-99) Sodium Level 132 mmol/L (136-145) Potassium Level 3.3 mmol/L (3.5-5.1) Chloride Level 94 mmol/L (98-107) Carbon Dioxide Level 28 mmol/L (21-32) Anion Gap 10 (6-14) Blood Urea Nitrogen 84 mg/dL (7-20) Creatinine 4.2 mg/dL (0.6-1.0) Estimated GFR (Cockcroft-Gault) 10.9 Glucose Level 135 mg/dL (70-99) Calcium Level 8.9 mg/dL (8.5-10.1) Phosphorus Level 4.2 mg/dL (2.6-4.7) Magnesium Level 2.7 mg/dL (1.8-2.4) Albumin 1.9 g/dL (3.4-5.0) Laboratory Tests Test 05/13/20 12:27 05/13/20 17:19 05/13/20 20:45 05/14/20 08:00 Glucose (Fingerstick) 107 mg/dL (70-99) 128 mg/dL (70-99) 201 mg/dL (70-99) Sodium Level 132 mmol/L (136-145) Potassium Level 3.3 mmol/L (3.5-5.1) Chloride Level 94 mmol/L (98-107) Carbon Dioxide Level 28 mmol/L (21-32) Anion Gap 10 (6-14) Blood Urea Nitrogen 84 mg/dL (7-20) Creatinine 4.2 mg/dL (0.6-1.0) Estimated GFR (Cockcroft-Gault) 10.9 Glucose Level 135 mg/dL (70-99) Calcium Level 8.9 mg/dL (8.5-10.1) Phosphorus Level 4.2 mg/dL (2.6-4.7) Magnesium Level 2.7 mg/dL (1.8-2.4) Albumin 1.9 g/dL (3.4-5.0) Medications Active Scripts Medications Dose Route/Sig Max Daily Dose Days Date Category Dose Instructions Gabapentin 600 Mg Tablet 600 Mg PO HS 04/27/20 Reported Gabapentin (Gabapentin) 300 Mg Capsule 300 Mg PO DAILY 04/27/20 Reported Lantus Solostar (Insulin Glargine,Hum.rec.anlog) 100 Unit/1 Ml Insuln.pen 75 Unit SQ BID 09/19/19 Reported Januvia (Sitagliptin Phosphate) 25 Mg Tablet 25 Mg PO DAILY 09/19/19 Reported Novolog (Insulin Aspart) 100 Unit/1 Ml Cartridge 0 SQ TIDAC 01/26/19 Reported Sliding scale; patient has printout (at home) of scale. Unknown at this time. Singulair Tablet (Montelukast Sodium) 10 Mg Tablet 10 Mg PO HS 11/24/18 Reported Atorvastatin Calcium 40 Mg Tablet 1 Tab PO QHS 11/24/18 Reported Torsemide 20 Mg Tablet 2 Tab PO BID 11/24/18 Reported Cymbalta (Duloxetine Hcl) 30 Mg Capsule.dr 1 Cap PO BID 11/24/18 Reported Daily Jalen (Multivitamin) 1 Each Tablet 1 Each PO DAILY 11/24/18 Reported Comments CXR 05/11 IMPRESSION: Increase in diffuse infiltrate. CTA chest IMPRESSION: 1. No evidence of pulmonary thromboembolic disease. 2. Multifocal bilateral groundglass opacities and consolidations, consistent with patient's history of infection. 3. Dilated pulmonary trunk, which can be seen with pulmonary hypertension. Impression . IMPRESSION: 1. Acute hypoxemic respiratory failure secondary to COVID-19 viral pneumonia./ ALI/ARDS 2. COVID-[address] angiogram, no evidence of pulmonary embolism. 4. Chronic kidney disease, on peritoneal dialysis. 5. Morbid obesity. 6. Obstructive sleep apnea. 7. Hyperlipidemia. 8. Hypertension. Plan . PLAN: Continue supplemental oxygen to keep oxygen saturations greater than 92%, currently on [id number]% and 40 L Follow chest x-ray/ABG prn Pt. has completed full course of steroids Remains off ABX PT. has completed Full course of remdesivir Follow nephrology recommendations in regards to peritoneal dialysis Physical therapy/Occupational Therapy DVT/GI prophylaxis Discussed with RN and RT Social work for D/C planning RAFAL TOMPKINS MD May 14, 2020 09:20
--- NOTE | 2020-05-14 09:37 | PDOC ---
DATE OF SERVICE DATE: 05/14/20 TIME: 09:36 SUBJECTIVE ROS stable, OBJECTIVE Vital Signs Vital Signs Date Time Temp Pulse Resp B/P (MAP) Pulse Ox O2 Delivery O2 Flow Rate FiO2 05/14/20 08:27 96 124/78 05/14/20 06:31 97 VAPOTHERM 40.0 05/14/20 06:00 18 05/14/20 04:00 98.7 98.7 I & 0 Intake and Output 05/14/20 07:00 Intake Total 840 ml Output Total 750 ml Balance 90 ml Intake Oral 840 ml Output Urine Total 750 ml # Bowel Movements 3 PHYSICAL EXAM Physical Exam GENERAL: NAD HEENT: Anicteric. on vapotherm NECK: Supple, no JVD. LUNGS: Decreased breath sounds. No wheezing. HEART: S1, S2. No gallops or murmurs. ABDOMEN: Soft bowel sounds present nontender , PD catheter + , no redness or discharge from exit site per practicing dermatologist EXTREMITIES: No edema, no cyanosis. DERMATOLOGIC: Warm, dry. No generalized rash. NEUROLOGIC: awake, alert Toro + DIAGNOSIS/ASSESSMENT Assessment & Plan ESRD - on peritoneal dialysis at [facility]; has good RRF, on Torsemide BID seen on PD, tolerating well, No concerns voiced by practicing dermatologist, has significant RRF no last fill, Continue APD ( 1.5% x 2 bags) as ordered, Edward Lorenz Azotemia- BUN up 2/2 Steroids , dced 05/06, improving COVID-19 infection- Status post remdesivir, steroids DC'd. Acute hypoxic respiratory failure due to COVID-19 viral pneumonia- on Vapotherm Diabetes mellitus. Morbid obesity. History of obstructive sleep apnea. Hypertension- BP stable COMMENT/RELEVANT DATA Meds Current Medications Medications (Trade) Dose Ordered Sig/Mya Start Time Stop Time Status Last Admin Dose Admin Acetaminophen (Tylenol) 650 mg PRN Q4HRS PRN 04/27/20 23:15 05/13/20 00:27 650 MG Amino Acids/ Glycerin/ Electrolytes 1,000 ml @ 80 mls/hr [id number] 05/04/20 10:15 05/07/20 12:31 DC 05/07/20 05:27 80 MLS/HR Ascorbic Acid (Vitamin C) 1,000 mg DAILY 04/28/20 13:00 04/30/20 08:57 DC 04/30/20 08:11 1,000 MG Atorvastatin Calcium (Lipitor) 40 mg QHS 04/27/20 21:00 04/30/20 08:57 DC 04/29/20 19:57 40 MG Azithromycin 250 ml @ 250 mls/hr 1X ONCE 04/26/20 23:00 04/26/20 23:59 DC 04/26/20 23:18 250 MLS/HR Carvedilol (Coreg) 25 mg BIDWMEALS 05/01/20 17:00 05/14/20 08:27 25 MG Ceftriaxone Sodium (Rocephin) 1 gm Q24H 04/28/20 13:00 05/03/20 09:20 DC 05/02/20 12:20 1 GM Cyclobenzaprine HCl (Flexeril) 10 mg PRN QID PRN 04/28/20 21:00 05/12/20 21:49 10 MG Dexamethasone (Decadron) 4 mg DAILYWBKFT 05/04/20 08:00 05/06/20 08:33 DC 05/06/20 08:15 4 MG Dextrose (Dextrose 50%-Water Syringe) 12.5 gm PRN Q15MIN PRN 04/27/20 04:00 05/03/20 18:50 25 GM Docusate Sodium (Colace) 100 mg BID 05/01/20 12:45 05/13/20 18:00 DC 05/13/20 09:01 100 MG Doxycycline Hyclate (Vibra-Tab) 100 mg BID 04/28/20 13:00 05/03/20 09:20 DC 05/03/20 08:36 100 MG Duloxetine HCl (Cymbalta) 30 mg BID 04/27/20 09:00 05/14/20 08:26 30 MG Enoxaparin Sodium (Lovenox 30mg Syringe) 30 mg Q24H 04/28/20 13:00 04/28/20 12:38 DC Gabapentin (Neurontin) 600 mg QHS 04/27/20 04:30 05/13/20 20:42 600 MG Heparin Sodium (Porcine) (Heparin Sodium) 5,000 unit Q8HRS 04/28/20 14:00 05/14/20 05:33 5,000 UNIT Info (CONTRAST GIVEN -- Rx MONITORING) 1 each PRN DAILY PRN 04/26/20 20:45 04/28/20 20:44 DC Insulin Glargine (Lantus Syringe) 70 unit DAILY 05/13/20 08:30 05/13/20 09:05 70 UNIT Insulin Human Lispro (HumaLOG) 20 units PRN BFRMEALHC PRN 05/06/20 03:00 05/13/20 09:05 20 UNITS Iohexol (Omnipaque 350 Mg/ml) 100 ml 1X ONCE 04/26/20 20:45 04/26/20 20:46 DC 04/26/20 21:20 100 ML Lactobacillus Rhamnosus (Culturelle) 1 cap BID 04/29/20 21:00 05/14/20 08:26 1 CAP Lactulose (Lactulose) 20 gm PRN 1X PRN 05/03/20 13:45 05/13/20 16:48 DC 05/12/20 15:41 20 GM Linagliptin (Tradjenta) 5 mg DAILY 04/27/20 09:00 05/14/20 08:26 5 MG Magnesium Sulfate 50 ml @ 25 mls/hr PRN DAILY PRN 05/11/20 14:15 Montelukast Sodium (Singulair) 10 mg HS 04/27/20 21:00 04/30/20 08:57 DC 04/29/20 19:57 10 MG Multivitamins (Thera M Plus) 1 tab DAILY 04/27/20 09:00 05/14/20 08:26 1 TAB Non-Formulary Medication (Gabapentin ) 600 mg HS 04/27/20 21:00 UNV Nystatin (Nystop) 1 jackie BID 05/08/20 21:00 UNV Ondansetron HCl (Zofran Odt) 4 mg PRN Q6HRS PRN 04/28/20 12:15 05/10/20 00:08 4 MG Ondansetron HCl (Zofran) 4 mg PRN Q8HRS PRN 04/26/20 22:45 04/27/20 22:44 DC Pantoprazole Sodium (PROTONIX VIAL for IV PUSH) 40 mg DAILY 05/02/20 09:00 05/07/20 15:25 DC 05/07/20 08:22 40 MG Pantoprazole Sodium (Protonix) 40 mg DAILYAC 05/08/20 07:30 05/14/20 08:26 40 MG Polyethylene Glycol (miraLAX PACKET) 34 gm PRN BID PRN 05/13/20 18:00 Potassium Chloride/Water 100 ml @ 100 mls/hr Q1H 05/01/20 15:00 05/01/20 18:59 DC 05/01/20 19:55 100 MLS/HR Potassium Chloride (Klor-Con) 20 meq DAILYWBKFT 05/02/20 08:00 05/14/20 08:26 20 MEQ Remdesivir 100 mg/ Sodium Chloride 230 ml @ 460 mls/hr Q24H 04/29/20 14:00 05/02/20 14:29 DC 05/02/20 14:27 460 MLS/HR Remdesivir 200 mg/ Sodium Chloride 210 ml @ 210 mls/hr 1X ONCE 04/28/20 14:00 04/28/20 14:59 DC 04/28/20 15:39 210 MLS/HR Sevelamer Carbonate (Renvela) 1,600 mg TIDWMEALS 05/02/20 17:00 05/14/20 08:26 1,600 MG Simethicone (Gas-X) 80 mg PRN AFTMEALHC PRN 05/10/20 15:30 05/13/20 08:59 80 MG Sodium Chloride 1,000 ml @ 1,000 mls/hr 1X ONCE 04/26/20 19:15 04/26/20 20:14 DC 04/26/20 19:17 1,000 MLS/HR Sterile Water (WATER for RESP) 1,000 ml CONT PRN 04/30/20 20:30 05/14/20 06:31 1,000 ML Temazepam (Restoril) 15 mg PRN QHS PRN 05/13/20 18:00 05/13/20 22:24 15 MG Torsemide (Demadex) 40 mg [id number] 04/27/20 09:00 05/14/20 08:27 40 MG Vitamin B Complex/ Vitamin C (Kelly-Jalen) 1 tab DAILY 04/29/20 14:00 05/14/20 08:26 1 TAB Vitamin D (Vitamin D3) 500 unit DAILY 04/28/20 13:00 04/30/20 08:57 DC 04/30/20 08:10 500 UNIT Zinc Sulfate (Orazinc) 220 mg DAILY 04/28/20 13:00 05/14/20 08:26 220 MG Lab Laboratory Tests Test 05/13/20 12:27 05/13/20 17:19 05/13/20 20:45 05/14/20 08:00 Glucose (Fingerstick) 107 mg/dL (70-99) 128 mg/dL (70-99) 201 mg/dL (70-99) Sodium Level 132 mmol/L (136-145) Potassium Level 3.3 mmol/L (3.5-5.1) Chloride Level 94 mmol/L (98-107) Carbon Dioxide Level 28 mmol/L (21-32) Anion Gap 10 (6-14) Blood Urea Nitrogen 84 mg/dL (7-20) Creatinine 4.2 mg/dL (0.6-1.0) Estimated GFR (Cockcroft-Gault) 10.9 Glucose Level 135 mg/dL (70-99) Calcium Level 8.9 mg/dL (8.5-10.1) Phosphorus Level 4.2 mg/dL (2.6-4.7) Magnesium Level 2.7 mg/dL (1.8-2.4) Albumin 1.9 g/dL (3.4-5.0) Test 05/14/20 08:37 Glucose (Fingerstick) 163 mg/dL (70-99) Results All relevant outside records, renal labs, imaging studies, telemetry/EKG's were reviewed. Justicifation of Admission Dx: Justifications for Admission: Justification of Admission Dx: N/A FLORINA TRONCOSO MD May 14, 2020 09:37
[2020-05-14] MEDS: INSULIN GLARGINE SYRINGE. SQ SCH (12:21)
[2020-05-14] MEDS: ACETAMINOPHEN 325 MG TABLET. PO PRN (12:21)
--- NOTE | 2020-05-14 15:56 | NUR ---
SS following up with discharge planning. SS reviewed pt chart and discussed with pt RN. Pt is currently on Vapotherm at 100%. COVID19 positive. Pt has peritoneal dialysis. PT/OT recommended jail [facility]. Referrals were phoned and faxed to [facility] and [facility]. Pt's RN spoke with pt and pt reported that she would prefer [facility], ; fax [phone]. She reported that she lives with her mother near the hospital and would prefer [facility] due to proximity to family. Pt accepted at [facility] pending bed availability. SS will continue to follow for discharge planning.
[2020-05-14] MEDS: GABAPENTIN 300 MG CAPSULE. PO SCH (21:25)
[2020-05-14] MEDS: TEMAZEPAM 15 MG CAPSULE PO PRN (21:25)
[2020-05-15] VITALS (24 sets, daily range): BP systolic 76–154; BP diastolic 53–87
[2020-05-15] MEDS: HEPARIN for SUB-Q USE 5,000 UNIT/ML VIAL. SQ SCH ×3 (05:54→21:05)
[2020-05-15] MEDS: LINAGLIPTIN 5 MG TABLET PO SCH (08:31)
[2020-05-15] MEDS: FOLIC/VIT B COMP W-C (RENAL) TABLET. PO SCH (08:31)
[2020-05-15] MEDS: LACTOBACILLUS RHAMNOSUS GG 1 CAPSULE. PO SCH ×2 (08:32→21:04)
[2020-05-15] MEDS: ZINC SULFATE 220 MG CAPSULE. PO SCH (08:32)
[2020-05-15] MEDS: CARVEDILOL 12.5 MG TABLET. PO SCH ×2 (08:32→17:30)
[2020-05-15] MEDS: SEVELAMER CARBONATE 800 MG TABLET. PO SCH ×3 (08:32→17:29)
[2020-05-15] MEDS: PANTOPRAZOLE 40 MG TABLET.DR. PO SCH (08:32)
[2020-05-15] MEDS: MULTIVITAMIN with MINERAL TABLET. PO SCH (08:33)
[2020-05-15] MEDS: DULoxetine HCL 30 MG CAPSULE.DR PO SCH ×2 (08:33→21:04)
[2020-05-15] MEDS: POTASSIUM CHLORIDE 20 MEQ TABLET.ER. PO SCH (08:33)
[2020-05-15] MEDS: TORSEMIDE 20 MG TABLET. PO SCH ×2 (08:33→17:29)
[2020-05-15] MEDS: STERILE WATER for RESP 1,000 ML BAG. INH PRN (08:38)
[2020-05-15] MEDS: NYSTATIN TOPICAL POWDER 15GM BOTTLE. TP SCH ×2 (08:46→21:05)
[2020-05-15] MEDS: INSULIN GLARGINE SYRINGE. SQ SCH (08:48)
[2020-05-15 09:04] LABS: CALCIUM 9.3 mg/dL (8.5-10.1); CREATININE 4.2 mg/dL (0.6-1.0); GFR 10.9; PHOSPHORUS 3.8 mg/dL (2.6-4.7)
--- NOTE | 2020-05-15 09:12 | PDOC ---
Provider Note Date of Service: DATE: 05/15/20 TIME: 09:11 Provider Note glucose ok on current insulin dose ,will cont same, rest same Justifications for Admission Other Justification VERNA GARCIA MD May 15, 2020 09:12
--- NOTE | 2020-05-15 09:20 | PDOC ---
DATE OF SERVICE DATE: 05/15/20 TIME: 09:17 SUBJECTIVE ROS stable, OBJECTIVE Vital Signs Vital Signs Date Time Temp Pulse Resp B/P (MAP) Pulse Ox O2 Delivery O2 Flow Rate FiO2 05/15/20 08:32 97 125/57 05/15/20 08:25 95 VAPOTHERM 40.0 05/15/20 07:00 96.7 22 96.7 I & 0 Intake and Output 05/15/20 07:00 Intake Total 1040 ml Output Total 935 ml Balance 105 ml Intake Oral 1040 ml Output Urine Total 935 ml # Bowel Movements 10 PHYSICAL EXAM Physical Exam GENERAL: NAD HEENT: Anicteric. on vapotherm NECK: Supple, no JVD. LUNGS: Decreased breath sounds. No wheezing. HEART: S1, S2. No gallops or murmurs. ABDOMEN: Soft bowel sounds present nontender , PD catheter + , no redness or discharge from exit site per administrative support assistant EXTREMITIES: No edema, no cyanosis. DERMATOLOGIC: Warm, dry. No generalized rash. NEUROLOGIC: awake, alert Toro + DIAGNOSIS/ASSESSMENT Assessment & Plan ESRD - on peritoneal dialysis at [facility]; has good RRF, on Torsemide BID seen on PD, tolerating well, No concerns voiced by administrative support assistant, has significant RRF no last fill, Continue APD ( 1.5% x 2 bags) as ordered, Edward Lorenz Azotemia- BUN up 06/11 Steroids , dced 05/06, improving COVID-19 infection- Status post remdesivir, steroids DC'd. Acute hypoxic respiratory failure due to COVID-19 viral pneumonia- on Vapotherm Diabetes mellitus. Morbid obesity. History of obstructive sleep apnea. Hypertension- BP stable COMMENT/RELEVANT DATA Meds Current Medications Medications (Trade) Dose Ordered Sig/Mya Start Time Stop Time Status Last Admin Dose Admin Acetaminophen (Tylenol) 650 mg PRN Q4HRS PRN 04/27/20 23:15 05/14/20 12:21 650 MG Amino Acids/ Glycerin/ Electrolytes 1,000 ml @ 80 mls/hr [id number] 05/04/20 10:15 05/07/20 12:31 DC 05/07/20 05:27 80 MLS/HR Ascorbic Acid (Vitamin C) 1,000 mg DAILY 04/28/20 13:00 04/30/20 08:57 DC 04/30/20 08:11 1,000 MG Atorvastatin Calcium (Lipitor) 40 mg QHS 04/27/20 21:00 04/30/20 08:57 DC 04/29/20 19:57 40 MG Azithromycin 250 ml @ 250 mls/hr 1X ONCE 04/26/20 23:00 04/26/20 23:59 DC 04/26/20 23:18 250 MLS/HR Carvedilol (Coreg) 25 mg BIDWMEALS 05/01/20 17:00 05/15/20 08:32 25 MG Ceftriaxone Sodium (Rocephin) 1 gm Q24H 04/28/20 13:00 05/03/20 09:20 DC 05/02/20 12:20 1 GM Cyclobenzaprine HCl (Flexeril) 10 mg PRN QID PRN 04/28/20 21:00 05/12/20 21:49 10 MG Dexamethasone (Decadron) 4 mg DAILYWBKFT 05/04/20 08:00 05/06/20 08:33 DC 05/06/20 08:15 4 MG Dextrose (Dextrose 50%-Water Syringe) 12.5 gm PRN Q15MIN PRN 04/27/20 04:00 05/03/20 18:50 25 GM Docusate Sodium (Colace) 100 mg BID 05/01/20 12:45 05/13/20 18:00 DC 05/13/20 09:01 100 MG Doxycycline Hyclate (Vibra-Tab) 100 mg BID 04/28/20 13:00 05/03/20 09:20 DC 05/03/20 08:36 100 MG Duloxetine HCl (Cymbalta) 30 mg BID 04/27/20 09:00 05/15/20 08:33 30 MG Enoxaparin Sodium (Lovenox 30mg Syringe) 30 mg Q24H 04/28/20 13:00 04/28/20 12:38 DC Gabapentin (Neurontin) 600 mg QHS 04/27/20 04:30 05/14/20 21:25 600 MG Heparin Sodium (Porcine) (Heparin Sodium) 5,000 unit Q8HRS 04/28/20 14:00 05/15/20 05:54 5,000 UNIT Info (CONTRAST GIVEN -- Rx MONITORING) 1 each PRN DAILY PRN 04/26/20 20:45 04/28/20 20:44 DC Insulin Glargine (Lantus Syringe) 70 unit DAILY 05/13/20 08:30 05/15/20 08:48 70 UNIT Insulin Human Lispro (HumaLOG) 20 units PRN BFRMEALHC PRN 05/06/20 03:00 05/13/20 09:05 20 UNITS Iohexol (Omnipaque 350 Mg/ml) 100 ml 1X ONCE 04/26/20 20:45 04/26/20 20:46 DC 04/26/20 21:20 100 ML Lactobacillus Rhamnosus (Culturelle) 1 cap BID 04/29/20 21:00 05/15/20 08:32 1 CAP Lactulose (Lactulose) 20 gm PRN 1X PRN 05/03/20 13:45 05/13/20 16:48 DC 05/12/20 15:41 20 GM Linagliptin (Tradjenta) 5 mg DAILY 04/27/20 09:00 05/15/20 08:31 5 MG Magnesium Sulfate 50 ml @ 25 mls/hr PRN DAILY PRN 05/11/20 14:15 Montelukast Sodium (Singulair) 10 mg HS 04/27/20 21:00 04/30/20 08:57 DC 04/29/20 19:57 10 MG Multivitamins (Thera M Plus) 1 tab DAILY 04/27/20 09:00 05/15/20 08:33 1 TAB Non-Formulary Medication (Gabapentin ) 600 mg HS 04/27/20 21:00 UNV Nystatin (Nystop) 1 jackie BID 05/08/20 21:00 UNV Ondansetron HCl (Zofran Odt) 4 mg PRN Q6HRS PRN 04/28/20 12:15 05/10/20 00:08 4 MG Ondansetron HCl (Zofran) 4 mg PRN Q8HRS PRN 04/26/20 22:45 04/27/20 22:44 DC Pantoprazole Sodium (PROTONIX VIAL for IV PUSH) 40 mg DAILY 05/02/20 09:00 05/07/20 15:25 DC 05/07/20 08:22 40 MG Pantoprazole Sodium (Protonix) 40 mg DAILYAC 05/08/20 07:30 05/15/20 08:32 40 MG Polyethylene Glycol (miraLAX PACKET) 34 gm PRN BID PRN 05/13/20 18:00 Potassium Chloride/Water 100 ml @ 100 mls/hr Q1H 05/01/20 15:00 05/01/20 18:59 DC 05/01/20 19:55 100 MLS/HR Potassium Chloride (Klor-Con) 20 meq DAILYWBKFT 05/02/20 08:00 05/15/20 08:33 20 MEQ Remdesivir 100 mg/ Sodium Chloride 230 ml @ 460 mls/hr Q24H 04/29/20 14:00 05/02/20 14:29 DC 05/02/20 14:27 460 MLS/HR Remdesivir 200 mg/ Sodium Chloride 210 ml @ 210 mls/hr 1X ONCE 04/28/20 14:00 04/28/20 14:59 DC 04/28/20 15:39 210 MLS/HR Sevelamer Carbonate (Renvela) 1,600 mg TIDWMEALS 05/02/20 17:00 05/15/20 08:32 1,600 MG Simethicone (Gas-X) 80 mg PRN AFTMEALHC PRN 05/10/20 15:30 05/13/20 08:59 80 MG Sodium Chloride 1,000 ml @ 1,000 mls/hr 1X ONCE 04/26/20 19:15 04/26/20 20:14 DC 04/26/20 19:17 1,000 MLS/HR Sterile Water (WATER for RESP) 1,000 ml CONT PRN 04/30/20 20:30 05/15/20 08:38 1,000 ML Temazepam (Restoril) 15 mg PRN QHS PRN 05/13/20 18:00 05/14/20 21:25 15 MG Torsemide (Demadex) 40 mg [id number] 04/27/20 09:00 05/15/20 08:33 40 MG Vitamin B Complex/ Vitamin C (Kelly-Jalen) 1 tab DAILY 04/29/20 14:00 05/15/20 08:31 1 TAB Vitamin D (Vitamin D3) 500 unit DAILY 04/28/20 13:00 04/30/20 08:57 DC 04/30/20 08:10 500 UNIT Zinc Sulfate (Orazinc) 220 mg DAILY 04/28/20 13:00 05/15/20 08:32 220 MG Lab Laboratory Tests Test 05/14/20 16:33 05/14/20 20:14 05/15/20 07:50 Glucose (Fingerstick) 150 mg/dL (70-99) 207 mg/dL (70-99) Sodium Level 132 mmol/L (136-145) Potassium Level 4.0 mmol/L (3.5-5.1) Chloride Level 95 mmol/L (98-107) Carbon Dioxide Level 27 mmol/L (21-32) Anion Gap 10 (6-14) Blood Urea Nitrogen 77 mg/dL (7-20) Creatinine 4.2 mg/dL (0.6-1.0) Estimated GFR (Cockcroft-Gault) 10.9 Glucose Level 155 mg/dL (70-99) Calcium Level 9.3 mg/dL (8.5-10.1) Phosphorus Level 3.8 mg/dL (2.6-4.7) Magnesium Level 2.5 mg/dL (1.8-2.4) Albumin 2.0 g/dL (3.4-5.0) Results All relevant outside records, renal labs, imaging studies, telemetry/EKG's were reviewed. Justicifation of Admission Dx: Justifications for Admission: Justification of Admission Dx: N/A FLORINA TRONCOSO MD May 15, 2020 09:20
--- NOTE | 2020-05-15 10:14 | NUR ---
SS following up with discharge planning. SS reviewed pt chart and discussed with pt RN. Pt is currently on Vapotherm at 100%. COVID19 positive. Pt has peritoneal dialysis. PT/OT recommended retirement unit. Pt accepted at [facility], ; fax [phone]. [facility] informed SS that pt's Medicare termed on 05/09/2020 and they think pt might have [facility] Medicare. Case management notified to assist with insurance issues. [employer] needing new insurance information to pursue insurance authorization for LTACH. SS will continue to follow for discharge planning.
--- NOTE | 2020-05-15 11:01 | PDOC ---
PULMONARY PROGRESS NOTES DATE: 05/15/20 TIME: 11:00 Subjective Remains on vapotherm at 40 liters 100% no clinical change No overnight concerns from nursing Vitals Vital Signs Date Time Temp Pulse Resp B/P (MAP) Pulse Ox O2 Delivery O2 Flow Rate FiO2 05/15/20 08:32 97 125/57 05/15/20 08:25 95 VAPOTHERM 40.0 05/15/20 08:00 16 05/15/20 07:00 96.7 96.7 Comments Patient is seen during pandemic, visual exam performed on vapotherm No accessory muscle use no distress No obvious rash or edema General: Alert, No acute distress Neuro Exam: Alert, Oriented Labs Laboratory Tests Test 05/13/20 12:27 05/13/20 17:19 05/13/20 20:45 05/14/20 08:00 Glucose (Fingerstick) 107 mg/dL (70-99) 128 mg/dL (70-99) 201 mg/dL (70-99) Sodium Level 132 mmol/L (136-145) Potassium Level 3.3 mmol/L (3.5-5.1) Chloride Level 94 mmol/L (98-107) Carbon Dioxide Level 28 mmol/L (21-32) Anion Gap 10 (6-14) Blood Urea Nitrogen 84 mg/dL (7-20) Creatinine 4.2 mg/dL (0.6-1.0) Estimated GFR (Cockcroft-Gault) 10.9 Glucose Level 135 mg/dL (70-99) Calcium Level 8.9 mg/dL (8.5-10.1) Phosphorus Level 4.2 mg/dL (2.6-4.7) Magnesium Level 2.7 mg/dL (1.8-2.4) Albumin 1.9 g/dL (3.4-5.0) Test 05/14/20 08:37 05/14/20 16:33 05/14/20 20:14 05/15/20 07:50 Glucose (Fingerstick) 163 mg/dL (70-99) 150 mg/dL (70-99) 207 mg/dL (70-99) Sodium Level 132 mmol/L (136-145) Potassium Level 4.0 mmol/L (3.5-5.1) Chloride Level 95 mmol/L (98-107) Carbon Dioxide Level 27 mmol/L (21-32) Anion Gap 10 (6-14) Blood Urea Nitrogen 77 mg/dL (7-20) Creatinine 4.2 mg/dL (0.6-1.0) Estimated GFR (Cockcroft-Gault) 10.9 Glucose Level 155 mg/dL (70-99) Calcium Level 9.3 mg/dL (8.5-10.1) Phosphorus Level 3.8 mg/dL (2.6-4.7) Magnesium Level 2.5 mg/dL (1.8-2.4) Albumin 2.0 g/dL (3.4-5.0) Laboratory Tests Test 05/14/20 16:33 05/14/20 20:14 05/15/20 07:50 Glucose (Fingerstick) 150 mg/dL (70-99) 207 mg/dL (70-99) Sodium Level 132 mmol/L (136-145) Potassium Level 4.0 mmol/L (3.5-5.1) Chloride Level 95 mmol/L (98-107) Carbon Dioxide Level 27 mmol/L (21-32) Anion Gap 10 (6-14) Blood Urea Nitrogen 77 mg/dL (7-20) Creatinine 4.2 mg/dL (0.6-1.0) Estimated GFR (Cockcroft-Gault) 10.9 Glucose Level 155 mg/dL (70-99) Calcium Level 9.3 mg/dL (8.5-10.1) Phosphorus Level 3.8 mg/dL (2.6-4.7) Magnesium Level 2.5 mg/dL (1.8-2.4) Albumin 2.0 g/dL (3.4-5.0) Medications Active Scripts Medications Dose Route/Sig Max Daily Dose Days Date Category Dose Instructions Gabapentin 600 Mg Tablet 600 Mg PO HS 04/27/20 Reported Gabapentin (Gabapentin) 300 Mg Capsule 300 Mg PO DAILY 04/27/20 Reported Lantus Solostar (Insulin Glargine,Hum.rec.anlog) 100 Unit/1 Ml Insuln.pen 75 Unit SQ BID 09/19/19 Reported Januvia (Sitagliptin Phosphate) 25 Mg Tablet 25 Mg PO DAILY 09/19/19 Reported Novolog (Insulin Aspart) 100 Unit/1 Ml Cartridge 0 SQ TIDAC 01/26/19 Reported Sliding scale; patient has printout (at home) of scale. Unknown at this time. Singulair Tablet (Montelukast Sodium) 10 Mg Tablet 10 Mg PO HS 11/24/18 Reported Atorvastatin Calcium 40 Mg Tablet 1 Tab PO QHS 11/24/18 Reported Torsemide 20 Mg Tablet 2 Tab PO BID 11/24/18 Reported Cymbalta (Duloxetine Hcl) 30 Mg Capsule.dr 1 Cap PO BID 11/24/18 Reported Daily Jalen (Multivitamin) 1 Each Tablet 1 Each PO DAILY 11/24/18 Reported Comments CXR 05/11 IMPRESSION: Increase in diffuse infiltrate. CTA chest IMPRESSION: 1. No evidence of pulmonary thromboembolic disease. 2. Multifocal bilateral groundglass opacities and consolidations, consistent with patient's history of infection. 3. Dilated pulmonary trunk, which can be seen with pulmonary hypertension. Impression . IMPRESSION: 1. Acute hypoxemic respiratory failure secondary to COVID-19 viral pneumonia./ ALI/ARDS 2. COVID-[address] angiogram, no evidence of pulmonary embolism. 4. Chronic kidney disease, on peritoneal dialysis. 5. Morbid obesity. 6. Obstructive sleep apnea. 7. Hyperlipidemia. 8. Hypertension. Plan . PLAN: Continue supplemental oxygen to keep oxygen saturations greater than 92%, currently on [id number]% and 40 L Pt. has completed full course of steroids Remains off ABX PT. has completed Full course of remdesivir Follow nephrology recommendations in regards to peritoneal dialysis Physical therapy/Occupational Therapy DVT/GI prophylaxis Discussed with RN and RT Social work for D/C planning LTACH-- waiting for insurance authorization RAFAL SINHA MD May 15, 2020 11:01
--- NOTE | 2020-05-15 13:35 | NUR ---
Staff noticed that pt spo2 level rapidly declining. When the checked on pt she was shaking and lethargic. Her NC connected to Vapotherm was off her nose. She was put back on it. Current spo2 is 90. Hansa Zhou notified; he ordered stat ABG.
[2020-05-15 14:44] LABS: BASE EXCESS ABG 3 mmol/L (-3-3); HCO3 ABG 28 mmol/L (21-28); PCO2 ABG 43 mmHg (35-46); PO2 ABG 68 mmHg (75-108); SAT O2 ABG 93 % (92-99)
[2020-05-15] MEDS: GABAPENTIN 300 MG CAPSULE. PO SCH (21:05)
[2020-05-15] MEDS: TEMAZEPAM 15 MG CAPSULE PO PRN (21:05)
[2020-05-16] VITALS (23 sets, daily range): BP systolic 99–159; BP diastolic 62–103
[2020-05-16] MEDS: HEPARIN for SUB-Q USE 5,000 UNIT/ML VIAL. SQ SCH ×3 (06:00→20:56)
--- NOTE | 2020-05-16 06:40 | NUR ---
Pt incontinent of stool frequently overnight. States she cannot feel when she is having a BM and can only have a BM when "I go to sleep and let it slide out of me." Brief placed after 3 linen change and partial bath. Refused heparin this am. O2 sat remains >94% when asleep, but seen by staff taking off Vapotherm twice overnight as well as Vapotherm found once to be put on incorrectly. Pt has stated "I would rather just stay here". Pt called out once stating "There's blood all over the bed. Come quick", BM found on sheets, but no blood present.
[2020-05-16] MEDS: LACTOBACILLUS RHAMNOSUS GG 1 CAPSULE. PO SCH ×2 (08:20→20:55)
[2020-05-16] MEDS: CYCLOBENZAPRINE 10 MG TABLET. PO PRN (08:20)
[2020-05-16] MEDS: SEVELAMER CARBONATE 800 MG TABLET. PO SCH ×3 (08:20→16:56)
[2020-05-16] MEDS: LINAGLIPTIN 5 MG TABLET PO SCH (08:20)
[2020-05-16] MEDS: FOLIC/VIT B COMP W-C (RENAL) TABLET. PO SCH (08:21)
[2020-05-16] MEDS: ZINC SULFATE 220 MG CAPSULE. PO SCH (08:21)
[2020-05-16] MEDS: CARVEDILOL 12.5 MG TABLET. PO SCH ×2 (08:22→16:56)
[2020-05-16] MEDS: DULoxetine HCL 30 MG CAPSULE.DR PO SCH ×2 (08:22→20:55)
[2020-05-16] MEDS: POTASSIUM CHLORIDE 20 MEQ TABLET.ER. PO SCH (08:22)
[2020-05-16] MEDS: TORSEMIDE 20 MG TABLET. PO SCH ×2 (08:22→16:56)
[2020-05-16] MEDS: PANTOPRAZOLE 40 MG TABLET.DR. PO SCH (08:22)
[2020-05-16] MEDS: MULTIVITAMIN with MINERAL TABLET. PO SCH (08:23)
[2020-05-16] MEDS: NYSTATIN TOPICAL POWDER 15GM BOTTLE. TP SCH ×2 (08:23→20:55)
[2020-05-16] MEDS: INSULIN GLARGINE SYRINGE. SQ SCH (08:26)
[2020-05-16 09:18] LABS: CALCIUM 9.1 mg/dL (8.5-10.1); CREATININE 4.1 mg/dL (0.6-1.0); GFR 11.3; PHOSPHORUS 4.6 mg/dL (2.6-4.7); POTASSIUM 4.1 mmol/L (3.5-5.1)
--- NOTE | 2020-05-16 10:27 | PDOC ---
DATE OF SERVICE DATE: 05/16/20 TIME: 10:25 SUBJECTIVE ROS stable OBJECTIVE Vital Signs Vital Signs Date Time Temp Pulse Resp B/P (MAP) Pulse Ox O2 Delivery O2 Flow Rate FiO2 05/16/20 09:00 97 33 159/86 (110) 97 High Flow Nasal Cannula 40.0 05/16/20 08:00 98.5 98.5 I & 0 Intake and Output 05/16/20 07:00 Intake Total 900 ml Output Total 810 ml Balance 90 ml Intake Oral 900 ml Output Urine Total 810 ml # Bowel Movements 7 PHYSICAL EXAM Physical Exam GENERAL: NAD HEENT: Anicteric. on vapotherm NECK: Supple, no JVD. LUNGS: Decreased breath sounds. No wheezing. HEART: S1, S2. No gallops or murmurs. ABDOMEN: Soft bowel sounds present nontender , PD catheter + , no redness or discharge from exit site per optometry professor EXTREMITIES: No edema, no cyanosis. DERMATOLOGIC: Warm, dry. No generalized rash. NEUROLOGIC: awake, alert Toro + DIAGNOSIS/ASSESSMENT Assessment & Plan ESRD - on peritoneal dialysis at [facility]; has good RRF, on Torsemide BID seen on PD, tolerating well, No concerns voiced by optometry professor, has significant RRF no last fill, Continue APD as ordered, Edward Lorenz Azotemia- BUN up / Steroids , dced 05/06, improving COVID-19 infection- Status post remdesivir, steroids DC'd. Acute hypoxic respiratory failure due to COVID-19 viral pneumonia- on Vapotherm Diabetes mellitus. Morbid obesity. History of obstructive sleep apnea. Hypertension- BP stable COMMENT/RELEVANT DATA Meds Current Medications Medications (Trade) Dose Ordered Sig/Mya Start Time Stop Time Status Last Admin Dose Admin Acetaminophen (Tylenol) 650 mg PRN Q4HRS PRN 04/27/20 23:15 05/14/20 12:21 650 MG Amino Acids/ Glycerin/ Electrolytes 1,000 ml @ 80 mls/hr [id number] 05/04/20 10:15 05/07/20 12:31 DC 05/07/20 05:27 80 MLS/HR Ascorbic Acid (Vitamin C) 1,000 mg DAILY 04/28/20 13:00 04/30/20 08:57 DC 04/30/20 08:11 1,000 MG Atorvastatin Calcium (Lipitor) 40 mg QHS 04/27/20 21:00 04/30/20 08:57 DC 04/29/20 19:57 40 MG Azithromycin 250 ml @ 250 mls/hr 1X ONCE 04/26/20 23:00 04/26/20 23:59 DC 04/26/20 23:18 250 MLS/HR Carvedilol (Coreg) 25 mg BIDWMEALS 05/01/20 17:00 05/16/20 08:22 25 MG Ceftriaxone Sodium (Rocephin) 1 gm Q24H 04/28/20 13:00 05/03/20 09:20 DC 05/02/20 12:20 1 GM Cyclobenzaprine HCl (Flexeril) 10 mg PRN QID PRN 04/28/20 21:00 05/16/20 08:20 10 MG Dexamethasone (Decadron) 4 mg DAILYWBKFT 05/04/20 08:00 05/06/20 08:33 DC 05/06/20 08:15 4 MG Dextrose (Dextrose 50%-Water Syringe) 12.5 gm PRN Q15MIN PRN 04/27/20 04:00 05/03/20 18:50 25 GM Docusate Sodium (Colace) 100 mg BID 05/01/20 12:45 05/13/20 18:00 DC 05/13/20 09:01 100 MG Doxycycline Hyclate (Vibra-Tab) 100 mg BID 04/28/20 13:00 05/03/20 09:20 DC 05/03/20 08:36 100 MG Duloxetine HCl (Cymbalta) 30 mg BID 04/27/20 09:00 05/16/20 08:22 30 MG Enoxaparin Sodium (Lovenox 30mg Syringe) 30 mg Q24H 04/28/20 13:00 04/28/20 12:38 DC Gabapentin (Neurontin) 600 mg QHS 04/27/20 04:30 05/15/20 21:05 600 MG Heparin Sodium (Porcine) (Heparin Sodium) 5,000 unit Q8HRS 04/28/20 14:00 05/15/20 21:05 5,000 UNIT Info (CONTRAST GIVEN -- Rx MONITORING) 1 each PRN DAILY PRN 04/26/20 20:45 04/28/20 20:44 DC Insulin Glargine (Lantus Syringe) 75 unit DAILY 05/17/20 09:00 Insulin Human Lispro (HumaLOG) 20 units PRN BFRMEALHC PRN 05/06/20 03:00 05/13/20 09:05 20 UNITS Iohexol (Omnipaque 350 Mg/ml) 100 ml 1X ONCE 04/26/20 20:45 04/26/20 20:46 DC 04/26/20 21:20 100 ML Lactobacillus Rhamnosus (Culturelle) 1 cap BID 04/29/20 21:00 05/16/20 08:20 1 CAP Lactulose (Lactulose) 20 gm PRN 1X PRN 05/03/20 13:45 05/13/20 16:48 DC 05/12/20 15:41 20 GM Linagliptin (Tradjenta) 5 mg DAILY 04/27/20 09:00 05/16/20 08:20 5 MG Magnesium Sulfate 50 ml @ 25 mls/hr PRN DAILY PRN 05/11/20 14:15 Montelukast Sodium (Singulair) 10 mg HS 04/27/20 21:00 04/30/20 08:57 DC 04/29/20 19:57 10 MG Multivitamins (Thera M Plus) 1 tab DAILY 04/27/20 09:00 05/16/20 08:23 1 TAB Non-Formulary Medication (Gabapentin ) 600 mg HS 04/27/20 21:00 UNV Nystatin (Nystop) 1 jackie BID 05/08/20 21:00 UNV Ondansetron HCl (Zofran Odt) 4 mg PRN Q6HRS PRN 04/28/20 12:15 05/10/20 00:08 4 MG Ondansetron HCl (Zofran) 4 mg PRN Q8HRS PRN 04/26/20 22:45 04/27/20 22:44 DC Pantoprazole Sodium (PROTONIX VIAL for IV PUSH) 40 mg DAILY 05/02/20 09:00 05/07/20 15:25 DC 05/07/20 08:22 40 MG Pantoprazole Sodium (Protonix) 40 mg DAILYAC 05/08/20 07:30 05/16/20 08:22 40 MG Polyethylene Glycol (miraLAX PACKET) 34 gm PRN BID PRN 05/13/20 18:00 Potassium Chloride/Water 100 ml @ 100 mls/hr Q1H 05/01/20 15:00 05/01/20 18:59 DC 05/01/20 19:55 100 MLS/HR Potassium Chloride (Klor-Con) 20 meq DAILYWBKFT 05/02/20 08:00 05/16/20 08:22 20 MEQ Remdesivir 100 mg/ Sodium Chloride 230 ml @ 460 mls/hr Q24H 04/29/20 14:00 05/02/20 14:29 DC 05/02/20 14:27 460 MLS/HR Remdesivir 200 mg/ Sodium Chloride 210 ml @ 210 mls/hr 1X ONCE 04/28/20 14:00 04/28/20 14:59 DC 04/28/20 15:39 210 MLS/HR Sevelamer Carbonate (Renvela) 1,600 mg TIDWMEALS 05/02/20 17:00 05/16/20 08:20 1,600 MG Simethicone (Gas-X) 80 mg PRN AFTMEALHC PRN 05/10/20 15:30 05/13/20 08:59 80 MG Sodium Chloride 1,000 ml @ 1,000 mls/hr 1X ONCE 04/26/20 19:15 04/26/20 20:14 DC 04/26/20 19:17 1,000 MLS/HR Sterile Water (WATER for RESP) 1,000 ml CONT PRN 04/30/20 20:30 05/15/20 08:38 1,000 ML Temazepam (Restoril) 15 mg PRN QHS PRN 05/13/20 18:00 05/15/20 21:05 15 MG Torsemide (Demadex) 40 mg [id number] 04/27/20 09:00 05/16/20 08:22 40 MG Vitamin B Complex/ Vitamin C (Kelly-Jalen) 1 tab DAILY 04/29/20 14:00 05/16/20 08:21 1 TAB Vitamin D (Vitamin D3) 500 unit DAILY 04/28/20 13:00 04/30/20 08:57 DC 04/30/20 08:10 500 UNIT Zinc Sulfate (Orazinc) 220 mg DAILY 04/28/20 13:00 05/16/20 08:21 220 MG Lab Laboratory Tests Test 05/15/20 10:52 05/15/20 14:40 05/16/20 07:55 05/16/20 08:32 Glucose (Fingerstick) 213 mg/dL (70-99) 118 mg/dL (70-99) O2 Saturation 93 % (92-99) Arterial Blood pH 7.42 (7.35-7.45) Arterial Blood pCO2 at Patient Temp 43 mmHg (35-46) Arterial Blood pO2 at Patient Temp 68 mmHg (75-108) Arterial Blood HCO3 28 mmol/L (21-28) Arterial Blood Base Excess 3 mmol/L (-3-3) FiO2 100% vapotherm, Sodium Level 133 mmol/L (136-145) Potassium Level 4.1 mmol/L (3.5-5.1) Chloride Level 96 mmol/L (98-107) Carbon Dioxide Level 27 mmol/L (21-32) Anion Gap 10 (6-14) Blood Urea Nitrogen 73 mg/dL (7-20) Creatinine 4.1 mg/dL (0.6-1.0) Estimated GFR (Cockcroft-Gault) 11.3 Glucose Level 112 mg/dL (70-99) Calcium Level 9.1 mg/dL (8.5-10.1) Phosphorus Level 4.6 mg/dL (2.6-4.7) Magnesium Level 2.7 mg/dL (1.8-2.4) Albumin 2.0 g/dL (3.4-5.0) Results All relevant outside records, renal labs, imaging studies, telemetry/EKG's were reviewed. Justicifation of Admission Dx: Justifications for Admission: Justification of Admission Dx: N/A FLORINA TRONCOSO MD May 16, 2020 10:27
--- NOTE | 2020-05-16 10:57 | PDOC ---
PULMONARY PROGRESS NOTES DATE: 05/16/20 TIME: 10:56 Subjective Remains on vapotherm at 40 liters 100% no clinical change No overnight concerns from nursing Vitals Vital Signs Date Time Temp Pulse Resp B/P (MAP) Pulse Ox O2 Delivery O2 Flow Rate FiO2 05/16/20 10:00 86 15 123/63 (83) 97 High Flow Nasal Cannula 40.0 05/16/20 08:00 98.5 98.5 Comments Patient is seen during , visual exam performed on vapotherm No accessory muscle use no distress No obvious rash or edema General: Alert, No acute distress Neuro Exam: Alert Labs Laboratory Tests Test 05/14/20 16:33 05/14/20 20:14 05/15/20 07:50 05/15/20 10:52 Glucose (Fingerstick) 150 mg/dL (70-99) 207 mg/dL (70-99) 213 mg/dL (70-99) Sodium Level 132 mmol/L (136-145) Potassium Level 4.0 mmol/L (3.5-5.1) Chloride Level 95 mmol/L (98-107) Carbon Dioxide Level 27 mmol/L (21-32) Anion Gap 10 (6-14) Blood Urea Nitrogen 77 mg/dL (7-20) Creatinine 4.2 mg/dL (0.6-1.0) Estimated GFR (Cockcroft-Gault) 10.9 Glucose Level 155 mg/dL (70-99) Calcium Level 9.3 mg/dL (8.5-10.1) Phosphorus Level 3.8 mg/dL (2.6-4.7) Magnesium Level 2.5 mg/dL (1.8-2.4) Albumin 2.0 g/dL (3.4-5.0) Test 05/15/20 14:40 05/16/20 07:55 05/16/20 08:32 O2 Saturation 93 % (92-99) Arterial Blood pH 7.42 (7.35-7.45) Arterial Blood pCO2 at Patient Temp 43 mmHg (35-46) Arterial Blood pO2 at Patient Temp 68 mmHg (75-108) Arterial Blood HCO3 28 mmol/L (21-28) Arterial Blood Base Excess 3 mmol/L (-3-3) FiO2 100% vapotherm, Sodium Level 133 mmol/L (136-145) Potassium Level 4.1 mmol/L (3.5-5.1) Chloride Level 96 mmol/L (98-107) Carbon Dioxide Level 27 mmol/L (21-32) Anion Gap 10 (6-14) Blood Urea Nitrogen 73 mg/dL (7-20) Creatinine 4.1 mg/dL (0.6-1.0) Estimated GFR (Cockcroft-Gault) 11.3 Glucose Level 112 mg/dL (70-99) Calcium Level 9.1 mg/dL (8.5-10.1) Phosphorus Level 4.6 mg/dL (2.6-4.7) Magnesium Level 2.7 mg/dL (1.8-2.4) Albumin 2.0 g/dL (3.4-5.0) Glucose (Fingerstick) 118 mg/dL (70-99) Laboratory Tests Test 05/15/20 14:40 05/16/20 07:55 05/16/20 08:32 O2 Saturation 93 % (92-99) Arterial Blood pH 7.42 (7.35-7.45) Arterial Blood pCO2 at Patient Temp 43 mmHg (35-46) Arterial Blood pO2 at Patient Temp 68 mmHg (75-108) Arterial Blood HCO3 28 mmol/L (21-28) Arterial Blood Base Excess 3 mmol/L (-3-3) FiO2 100% vapotherm, Sodium Level 133 mmol/L (136-145) Potassium Level 4.1 mmol/L (3.5-5.1) Chloride Level 96 mmol/L (98-107) Carbon Dioxide Level 27 mmol/L (21-32) Anion Gap 10 (6-14) Blood Urea Nitrogen 73 mg/dL (7-20) Creatinine 4.1 mg/dL (0.6-1.0) Estimated GFR (Cockcroft-Gault) 11.3 Glucose Level 112 mg/dL (70-99) Calcium Level 9.1 mg/dL (8.5-10.1) Phosphorus Level 4.6 mg/dL (2.6-4.7) Magnesium Level 2.7 mg/dL (1.8-2.4) Albumin 2.0 g/dL (3.4-5.0) Glucose (Fingerstick) 118 mg/dL (70-99) Medications Active Scripts Medications Dose Route/Sig Max Daily Dose Days Date Category Dose Instructions Gabapentin 600 Mg Tablet 600 Mg PO HS 04/27/20 Reported Gabapentin (Gabapentin) 300 Mg Capsule 300 Mg PO DAILY 04/27/20 Reported Lantus Solostar (Insulin Glargine,Hum.rec.anlog) 100 Unit/1 Ml Insuln.pen 75 Unit SQ BID 09/19/19 Reported Januvia (Sitagliptin Phosphate) 25 Mg Tablet 25 Mg PO DAILY 09/19/19 Reported Novolog (Insulin Aspart) 100 Unit/1 Ml Cartridge 0 SQ TIDAC 01/26/19 Reported Sliding scale; patient has printout (at home) of scale. Unknown at this time. Singulair Tablet (Montelukast Sodium) 10 Mg Tablet 10 Mg PO HS 11/24/18 Reported Atorvastatin Calcium 40 Mg Tablet 1 Tab PO QHS 11/24/18 Reported Torsemide 20 Mg Tablet 2 Tab PO BID 11/24/18 Reported Cymbalta (Duloxetine Hcl) 30 Mg Capsule.dr 1 Cap PO BID 11/24/18 Reported Daily Jalen (Multivitamin) 1 Each Tablet 1 Each PO DAILY 11/24/18 Reported Comments CXR 1/ IMPRESSION: Increase in diffuse infiltrate. CTA chest IMPRESSION: 1. No evidence of pulmonary thromboembolic disease. 2. Multifocal bilateral groundglass opacities and consolidations, consistent with patient's history of infection. 3. Dilated pulmonary trunk, which can be seen with pulmonary hypertension. Impression . IMPRESSION: 1. Acute hypoxemic respiratory failure secondary to COVID-19 viral pneumonia./ ALI/ARDS 2. COVID-[address] angiogram, no evidence of pulmonary embolism. 4. Chronic kidney disease, on peritoneal dialysis. 5. Morbid obesity. 6. Obstructive sleep apnea. 7. Hyperlipidemia. 8. Hypertension. Plan . PLAN: Continue supplemental oxygen to keep oxygen saturations greater than 92%, currently on [id number]% and 40 L Pt. has completed full course of steroids Remains off ABX PT. has completed Full course of remdesivir Follow nephrology recommendations in regards to peritoneal dialysis Physical therapy/Occupational Therapy DVT/GI prophylaxis Discussed with RN and RT Social work for D/C planning LTACH-- waiting for insurance authorization RAFAL SINHA MD May 16, 2020 10:57
--- NOTE | 2020-05-16 11:46 | NUR ---
SS following up with discharge planning. SS reviewed pt chart and discussed with pt RN. Pt is currently on Vapotherm at 100%. COVID19 positive. Pt accepted at [facility], ; fax [phone]. Pt now has [facility] insurance and is requiring insurance authorization for [facility]. SS phoned and faxed updated insurance information and updated clinical to [facility]. SS will continue to follow for discharge planning.
--- NOTE | 2020-05-16 15:52 | NUR ---
attempted to get patient to bedside commode. sitting on edge of bed pt became very SOA, sats dropping to 73. encouraged pt to slow breathing and breath through nose. sat increased back to 91. pt then assisted to commode and once again became short of breath. pt then requested to get back to bed. Sats rebounded to 95 after pt in bed and HOB raised.
--- NOTE | 2020-05-16 17:35 | NUR ---
entered pt room and she had removed canula. pt very disoriented. canula placed back on pt and encouraged to breath through nose. Pulse ox not registering. unplugged and plugged back in. pt sat 54% and was slow to recover. also placed on NRB
[2020-05-16] MEDS: GABAPENTIN 300 MG CAPSULE. PO SCH (20:55)
[2020-05-16] MEDS: TEMAZEPAM 15 MG CAPSULE PO PRN (20:56)
[2020-05-16] MEDS: STERILE WATER for RESP 1,000 ML BAG. INH PRN (21:07)
[2020-05-17] VITALS (24 sets, daily range): BP systolic 99–184; BP diastolic 55–90
[2020-05-17] MEDS: HEPARIN for SUB-Q USE 5,000 UNIT/ML VIAL. SQ SCH ×3 (06:30→21:52)
[2020-05-17] MEDS: PANTOPRAZOLE 40 MG TABLET.DR. PO SCH (07:41)
[2020-05-17] MEDS: POTASSIUM CHLORIDE 20 MEQ TABLET.ER. PO SCH (07:42)
[2020-05-17] MEDS: CARVEDILOL 12.5 MG TABLET. PO SCH ×2 (07:42→17:02)
[2020-05-17] MEDS: SEVELAMER CARBONATE 800 MG TABLET. PO SCH ×3 (07:42→16:59)
[2020-05-17 08:36] LABS: CALCIUM 9.2 mg/dL (8.5-10.1); CREATININE 4.2 mg/dL (0.6-1.0); GFR 10.9; POTASSIUM 4.2 mmol/L (3.5-5.1)
--- NOTE | 2020-05-17 08:50 | PDOC ---
Provider Note Date of Service: DATE: 05/17/20 TIME: 08:48 Provider Note remains on hogh flow O2 , intolerant of any exertion, glucose good on current lantus, labs same- prognosis appears poor re pulm injury at this point Justifications for Admission Other Justification VERNA GARCIA MD May 17, 2020 08:50
[2020-05-17] MEDS: INSULIN GLARGINE SYRINGE. SQ SCH ×2 (09:00→12:06)
[2020-05-17] MEDS: NYSTATIN TOPICAL POWDER 15GM BOTTLE. TP SCH ×2 (09:00→21:00)
[2020-05-17] MEDS: LACTOBACILLUS RHAMNOSUS GG 1 CAPSULE. PO SCH ×2 (09:07→21:52)
[2020-05-17] MEDS: ZINC SULFATE 220 MG CAPSULE. PO SCH (09:08)
[2020-05-17] MEDS: TORSEMIDE 20 MG TABLET. PO SCH ×2 (09:08→16:09)
[2020-05-17] MEDS: DULoxetine HCL 30 MG CAPSULE.DR PO SCH ×2 (09:08→21:51)
[2020-05-17] MEDS: FOLIC/VIT B COMP W-C (RENAL) TABLET. PO SCH (09:09)
[2020-05-17] MEDS: MULTIVITAMIN with MINERAL TABLET. PO SCH (09:09)
[2020-05-17] MEDS: LINAGLIPTIN 5 MG TABLET PO SCH (09:09)
--- NOTE | 2020-05-17 09:39 | PDOC ---
PULMONARY PROGRESS NOTES DATE: 05/17/20 TIME: 09:39 Subjective Remains on vapotherm at 40 liters 100% No overnight concerns from nursing Vitals Vital Signs Date Time Temp Pulse Resp B/P (MAP) Pulse Ox O2 Delivery O2 Flow Rate FiO2 05/17/20 08:22 95 VAPOTHERM 40.0 05/17/20 08:00 98.8 94 22 144/81 (102) 98.8 Comments Patient is seen during , visual exam performed on vapotherm No accessory muscle use no distress No obvious rash or edema General: Alert, No acute distress Neuro Exam: Alert Labs Laboratory Tests Test 05/15/20 10:52 05/15/20 14:40 05/15/20 17:11 05/16/20 07:55 Glucose (Fingerstick) 213 mg/dL (70-99) 128 mg/dL (70-99) O2 Saturation 93 % (92-99) Arterial Blood pH 7.42 (7.35-7.45) Arterial Blood pCO2 at Patient Temp 43 mmHg (35-46) Arterial Blood pO2 at Patient Temp 68 mmHg (75-108) Arterial Blood HCO3 28 mmol/L (21-28) Arterial Blood Base Excess 3 mmol/L (-3-3) FiO2 100% vapotherm, Sodium Level 133 mmol/L (136-145) Potassium Level 4.1 mmol/L (3.5-5.1) Chloride Level 96 mmol/L (98-107) Carbon Dioxide Level 27 mmol/L (21-32) Anion Gap 10 (6-14) Blood Urea Nitrogen 73 mg/dL (7-20) Creatinine 4.1 mg/dL (0.6-1.0) Estimated GFR (Cockcroft-Gault) 11.3 Glucose Level 112 mg/dL (70-99) Calcium Level 9.1 mg/dL (8.5-10.1) Phosphorus Level 4.6 mg/dL (2.6-4.7) Magnesium Level 2.7 mg/dL (1.8-2.4) Albumin 2.0 g/dL (3.4-5.0) Test 05/16/20 08:32 05/17/20 07:55 Glucose (Fingerstick) 118 mg/dL (70-99) Sodium Level 134 mmol/L (136-145) Potassium Level 4.2 mmol/L (3.5-5.1) Chloride Level 96 mmol/L (98-107) Carbon Dioxide Level 29 mmol/L (21-32) Anion Gap 9 (6-14) Blood Urea Nitrogen 70 mg/dL (7-20) Creatinine 4.2 mg/dL (0.6-1.0) Estimated GFR (Cockcroft-Gault) 10.9 Glucose Level 116 mg/dL (70-99) Calcium Level 9.2 mg/dL (8.5-10.1) Phosphorus Level 4.0 mg/dL (2.6-4.7) Albumin 2.0 g/dL (3.4-5.0) Laboratory Tests Test 05/17/20 07:55 Sodium Level 134 mmol/L (136-145) Potassium Level 4.2 mmol/L (3.5-5.1) Chloride Level 96 mmol/L (98-107) Carbon Dioxide Level 29 mmol/L (21-32) Anion Gap 9 (6-14) Blood Urea Nitrogen 70 mg/dL (7-20) Creatinine 4.2 mg/dL (0.6-1.0) Estimated GFR (Cockcroft-Gault) 10.9 Glucose Level 116 mg/dL (70-99) Calcium Level 9.2 mg/dL (8.5-10.1) Phosphorus Level 4.0 mg/dL (2.6-4.7) Albumin 2.0 g/dL (3.4-5.0) Medications Active Scripts Medications Dose Route/Sig Max Daily Dose Days Date Category Dose Instructions Gabapentin 600 Mg Tablet 600 Mg PO HS 04/27/20 Reported Gabapentin (Gabapentin) 300 Mg Capsule 300 Mg PO DAILY 04/27/20 Reported Lantus Solostar (Insulin Glargine,Hum.rec.anlog) 100 Unit/1 Ml Insuln.pen 75 Unit SQ BID 09/19/19 Reported Januvia (Sitagliptin Phosphate) 25 Mg Tablet 25 Mg PO DAILY 09/19/19 Reported Novolog (Insulin Aspart) 100 Unit/1 Ml Cartridge 0 SQ TIDAC 01/26/19 Reported Sliding scale; patient has printout (at home) of scale. Unknown at this time. Singulair Tablet (Montelukast Sodium) 10 Mg Tablet 10 Mg PO HS 11/24/18 Reported Atorvastatin Calcium 40 Mg Tablet 1 Tab PO QHS 11/24/18 Reported Torsemide 20 Mg Tablet 2 Tab PO BID 11/24/18 Reported Cymbalta (Duloxetine Hcl) 30 Mg Capsule. 1 Cap PO BID 11/24/18 Reported Daily Jalen (Multivitamin) 1 Each Tablet 1 Each PO DAILY 11/24/18 Reported Comments CXR 05/11 IMPRESSION: Increase in diffuse infiltrate. CTA chest IMPRESSION: 1. No evidence of pulmonary thromboembolic disease. 2. Multifocal bilateral groundglass opacities and consolidations, consistent with patient's history of infection. 3. Dilated pulmonary trunk, which can be seen with pulmonary hypertension. Impression . IMPRESSION: 1. Acute hypoxemic respiratory failure secondary to COVID-19 viral pneumonia./ ALI/ARDS 2. COVID-[address] angiogram, no evidence of pulmonary embolism. 4. Chronic kidney disease, on peritoneal dialysis. 5. Morbid obesity. 6. Obstructive sleep apnea. 7. Hyperlipidemia. 8. Hypertension. Plan . PLAN: Continue supplemental oxygen to keep oxygen saturations greater than 92%, currently on [id number]% and 40 L Pt. has completed full course of steroids Remains off ABX PT. has completed Full course of remdesivir Follow nephrology recommendations in regards to peritoneal dialysis Physical therapy/Occupational Therapy DVT/GI prophylaxis Discussed with RN and RT Social work for D/C planning LTACH-- waiting for insurance authorization RAFAL SINHA MD May 17, 2020 09:39
--- NOTE | 2020-05-17 10:55 | PDOC ---
DATE OF SERVICE DATE: 05/17/20 TIME: 10:53 SUBJECTIVE ROS stable OBJECTIVE Vital Signs Vital Signs Date Time Temp Pulse Resp B/P (MAP) Pulse Ox O2 Delivery O2 Flow Rate FiO2 05/17/20 10:00 89 29 120/80 (93) 92 Vapotherm 40L/100% 40.0 05/17/20 08:00 98.8 98.8 I & 0 Intake and Output 05/17/20 07:00 Intake Total 1330 ml Output Total 750 ml Balance 580 ml Intake Oral 1330 ml Output Urine Total 750 ml # Bowel Movements 4 PHYSICAL EXAM Physical Exam GENERAL: NAD HEENT: Anicteric. on vapotherm NECK: Supple, no JVD. LUNGS: Decreased breath sounds. No wheezing. HEART: S1, S2. No gallops or murmurs. ABDOMEN: Soft bowel sounds present nontender , PD catheter + , no redness or discharge from exit site per polytechnic registrar EXTREMITIES: No edema, no cyanosis. DERMATOLOGIC: Warm, dry. No generalized rash. NEUROLOGIC: awake, alert Toro + DIAGNOSIS/ASSESSMENT Assessment & Plan ESRD - on peritoneal dialysis at [facility]; has good RRF, on Torsemide BID seen on PD, tolerating well, No concerns voiced by polytechnic registrar, has significant RRF no last fill, Continue APD as ordered, Edward Lorenz Azotemia- BUN up 2/2 Steroids , dced 05/06, improving COVID-19 infection- Status post remdesivir, steroids DC'd. Acute hypoxic respiratory failure due to COVID-19 viral pneumonia- on Vapotherm Diabetes mellitus. Morbid obesity. History of obstructive sleep apnea. Hypertension- BP stable COMMENT/RELEVANT DATA Meds Current Medications Medications (Trade) Dose Ordered Sig/Mya Start Time Stop Time Status Last Admin Dose Admin Acetaminophen (Tylenol) 650 mg PRN Q4HRS PRN 04/27/20 23:15 05/14/20 12:21 650 MG Amino Acids/ Glycerin/ Electrolytes 1,000 ml @ 80 mls/hr [id number] 05/04/20 10:15 05/07/20 12:31 DC 05/07/20 05:27 80 MLS/HR Ascorbic Acid (Vitamin C) 1,000 mg DAILY 04/28/20 13:00 04/30/20 08:57 DC 04/30/20 08:11 1,000 MG Atorvastatin Calcium (Lipitor) 40 mg QHS 04/27/20 21:00 04/30/20 08:57 DC 04/29/20 19:57 40 MG Azithromycin 250 ml @ 250 mls/hr 1X ONCE 04/26/20 23:00 04/26/20 23:59 DC 04/26/20 23:18 250 MLS/HR Carvedilol (Coreg) 25 mg BIDWMEALS 05/01/20 17:00 05/17/20 07:42 25 MG Ceftriaxone Sodium (Rocephin) 1 gm Q24H 04/28/20 13:00 05/03/20 09:20 DC 05/02/20 12:20 1 GM Cyclobenzaprine HCl (Flexeril) 10 mg PRN QID PRN 04/28/20 21:00 05/16/20 08:20 10 MG Dexamethasone (Decadron) 4 mg [id number] 05/04/20 08:00 05/06/20 08:33 DC 05/06/20 08:15 4 MG Dextrose (Dextrose 50%-Water Syringe) 12.5 gm PRN Q15MIN PRN 04/27/20 04:00 05/03/20 18:50 25 GM Docusate Sodium (Colace) 100 mg BID 05/01/20 12:45 05/13/20 18:00 DC 05/13/20 09:01 100 MG Doxycycline Hyclate (Vibra-Tab) 100 mg BID 04/28/20 13:00 05/03/20 09:20 DC 05/03/20 08:36 100 MG Duloxetine HCl (Cymbalta) 30 mg BID 04/27/20 09:00 05/17/20 09:08 30 MG Enoxaparin Sodium (Lovenox 30mg Syringe) 30 mg Q24H 04/28/20 13:00 04/28/20 12:38 DC Gabapentin (Neurontin) 600 mg QHS 04/27/20 04:30 05/16/20 20:55 600 MG Heparin Sodium (Porcine) (Heparin Sodium) 5,000 unit Q8HRS 04/28/20 14:00 05/17/20 06:30 5,000 UNIT Info (CONTRAST GIVEN -- Rx MONITORING) 1 each PRN DAILY PRN 04/26/20 20:45 04/28/20 20:44 DC Insulin Glargine (Lantus Syringe) 75 unit DAILY 05/17/20 09:00 Insulin Human Lispro (HumaLOG) 20 units PRN BFRMEALHC PRN 05/06/20 03:00 05/13/20 09:05 20 UNITS Iohexol (Omnipaque 350 Mg/ml) 100 ml 1X ONCE 04/26/20 20:45 04/26/20 20:46 DC 04/26/20 21:20 100 ML Lactobacillus Rhamnosus (Culturelle) 1 cap BID 04/29/20 21:00 05/17/20 09:07 1 CAP Lactulose (Lactulose) 20 gm PRN 1X PRN 05/03/20 13:45 05/13/20 16:48 DC 05/12/20 15:41 20 GM Linagliptin (Tradjenta) 5 mg DAILY 04/27/20 09:00 05/17/20 09:09 5 MG Magnesium Sulfate 50 ml @ 25 mls/hr PRN DAILY PRN 05/11/20 14:15 Montelukast Sodium (Singulair) 10 mg HS 04/27/20 21:00 04/30/20 08:57 DC 04/29/20 19:57 10 MG Multivitamins (Thera M Plus) 1 tab DAILY 04/27/20 09:00 05/17/20 09:09 1 TAB Non-Formulary Medication (Gabapentin ) 600 mg HS 04/27/20 21:00 UNV Nystatin (Nystop) 1 jackie BID 05/08/20 21:00 UNV Ondansetron HCl (Zofran Odt) 4 mg PRN Q6HRS PRN 04/28/20 12:15 05/10/20 00:08 4 MG Ondansetron HCl (Zofran) 4 mg PRN Q8HRS PRN 04/26/20 22:45 04/27/20 22:44 DC Pantoprazole Sodium (PROTONIX VIAL for IV PUSH) 40 mg DAILY 05/02/20 09:00 05/07/20 15:25 DC 05/07/20 08:22 40 MG Pantoprazole Sodium (Protonix) 40 mg DAILYAC 05/08/20 07:30 05/17/20 07:41 40 MG Polyethylene Glycol (miraLAX PACKET) 34 gm PRN BID PRN 05/13/20 18:00 Potassium Chloride/Water 100 ml @ 100 mls/hr Q1H 05/01/20 15:00 05/01/20 18:59 DC 05/01/20 19:55 100 MLS/HR Potassium Chloride (Klor-Con) 20 meq DAILYWBKFT 05/02/20 08:00 05/17/20 07:42 20 MEQ Remdesivir 100 mg/ Sodium Chloride 230 ml @ 460 mls/hr Q24H 04/29/20 14:00 05/02/20 14:29 DC 05/02/20 14:27 460 MLS/HR Remdesivir 200 mg/ Sodium Chloride 210 ml @ 210 mls/hr 1X ONCE 04/28/20 14:00 04/28/20 14:59 DC 04/28/20 15:39 210 MLS/HR Sevelamer Carbonate (Renvela) 1,600 mg TIDWMEALS 05/02/20 17:00 05/17/20 07:42 1,600 MG Simethicone (Gas-X) 80 mg PRN AFTMEALHC PRN 05/10/20 15:30 05/13/20 08:59 80 MG Sodium Chloride 1,000 ml @ 1,000 mls/hr 1X ONCE 04/26/20 19:15 04/26/20 20:14 DC 04/26/20 19:17 1,000 MLS/HR Sterile Water (WATER for RESP) 1,000 ml CONT PRN 04/30/20 20:30 05/16/20 21:07 1,000 ML Temazepam (Restoril) 15 mg PRN QHS PRN 05/13/20 18:00 05/16/20 20:56 15 MG Torsemide (Demadex) 40 mg [id number] 04/27/20 09:00 05/17/20 09:08 40 MG Vitamin B Complex/ Vitamin C (Kelly-Jalen) 1 tab DAILY 04/29/20 14:00 05/17/20 09:09 1 TAB Vitamin D (Vitamin D3) 500 unit DAILY 04/28/20 13:00 04/30/20 08:57 DC 04/30/20 08:10 500 UNIT Zinc Sulfate (Orazinc) 220 mg DAILY 04/28/20 13:00 05/17/20 09:08 220 MG Lab Laboratory Tests Test 05/17/20 07:55 Sodium Level 134 mmol/L (136-145) Potassium Level 4.2 mmol/L (3.5-5.1) Chloride Level 96 mmol/L (98-107) Carbon Dioxide Level 29 mmol/L (21-32) Anion Gap 9 (6-14) Blood Urea Nitrogen 70 mg/dL (7-20) Creatinine 4.2 mg/dL (0.6-1.0) Estimated GFR (Cockcroft-Gault) 10.9 Glucose Level 116 mg/dL (70-99) Calcium Level 9.2 mg/dL (8.5-10.1) Phosphorus Level 4.0 mg/dL (2.6-4.7) Albumin 2.0 g/dL (3.4-5.0) Results All relevant outside records, renal labs, imaging studies, telemetry/EKG's were reviewed. Justicifation of Admission Dx: Justifications for Admission: Justification of Admission Dx: N/A FLORINA TRONCOSO MD May 17, 2020 10:54
[2020-05-17] MEDS: SIMETHICONE 80 MG TAB.CHEW PO PRN (14:18)
--- NOTE | 2020-05-17 16:09 | NUR ---
SS following up with discharge planning. SS reviewed pt chart and discussed with pt RN. Pt is currently on Vapotherm at 100%. COVID19 positive. Pt accepted at [facility], ; fax [phone], pending insurance authorization. SS will continue to follow for discharge planning.
[2020-05-17] MEDS: STERILE WATER for RESP 1,000 ML BAG. INH PRN (21:05)
[2020-05-17] MEDS: TEMAZEPAM 15 MG CAPSULE PO PRN (21:51)
[2020-05-17] MEDS: GABAPENTIN 300 MG CAPSULE. PO SCH (21:51)
[2020-05-17] MEDS: LOPERAMIDE 2 MG CAPSULE PO PRN (22:47)
[2020-05-18] VITALS (24 sets, daily range): BP systolic 77–161; BP diastolic 56–104
[2020-05-18 01:34] LABS: BASE EXCESS ABG 1 mmol/L (-3-3); HCO3 ABG 26 mmol/L (21-28); PCO2 ABG 45 mmHg (35-46); PO2 ABG 62 mmHg (75-108); SAT O2 ABG 91 % (92-99)
[2020-05-18 01:35] LABS: FIO2 ABG 100
[2020-05-18 05:40] LABS: ALBUMIN 1.9 g/dL (3.4-5.0); CALCIUM 8.7 mg/dL (8.5-10.1); CREATININE 4.2 mg/dL (0.6-1.0); GFR 10.9; PHOSPHORUS 4.1 mg/dL (2.6-4.7); POTASSIUM 3.7 mmol/L (3.5-5.1)
[2020-05-18] MEDS: HEPARIN for SUB-Q USE 5,000 UNIT/ML VIAL. SQ SCH ×3 (05:45→14:00)
[2020-05-18] MEDS: SEVELAMER CARBONATE 800 MG TABLET. PO SCH ×3 (07:36→16:31)
[2020-05-18] MEDS: PANTOPRAZOLE 40 MG TABLET.DR. PO SCH (07:36)
[2020-05-18] MEDS: CARVEDILOL 12.5 MG TABLET. PO SCH ×2 (07:38→16:30)
[2020-05-18] MEDS: POTASSIUM CHLORIDE 20 MEQ TABLET.ER. PO SCH (07:38)
[2020-05-18] MEDS: LACTOBACILLUS RHAMNOSUS GG 1 CAPSULE. PO SCH ×2 (08:36→20:43)
[2020-05-18] MEDS: ZINC SULFATE 220 MG CAPSULE. PO SCH (08:37)
[2020-05-18] MEDS: TORSEMIDE 20 MG TABLET. PO SCH ×2 (08:37→16:30)
[2020-05-18] MEDS: LINAGLIPTIN 5 MG TABLET PO SCH (08:37)
[2020-05-18] MEDS: FOLIC/VIT B COMP W-C (RENAL) TABLET. PO SCH (08:37)
[2020-05-18] MEDS: MULTIVITAMIN with MINERAL TABLET. PO SCH (08:37)
[2020-05-18] MEDS: DULoxetine HCL 30 MG CAPSULE.DR PO SCH ×2 (08:37→20:43)
[2020-05-18] MEDS: INSULIN GLARGINE SYRINGE. SQ SCH (08:39)
[2020-05-18] MEDS: NYSTATIN TOPICAL POWDER 15GM BOTTLE. TP SCH ×2 (08:39→20:43)
--- NOTE | 2020-05-18 09:59 | PDOC ---
PULMONARY PROGRESS NOTES DATE: 05/18/20 TIME: 09:57 Subjective Remains on vapotherm at 40 liters 100% hypoxia with exertion No overnight concerns from nursing Vitals Vital Signs Date Time Temp Pulse Resp B/P (MAP) Pulse Ox O2 Delivery O2 Flow Rate FiO2 05/18/20 09:00 83 22 77/58 (64) 91 Vapotherm 40.0 05/18/20 08:00 98.1 98.1 Comments Patient is seen during , visual exam performed on vapotherm 100% No accessory muscle use no distress No obvious rash or edema General: Alert, No acute distress Neuro Exam: Alert Labs Laboratory Tests Test 05/16/20 16:59 05/17/20 07:55 05/17/20 11:51 05/18/20 01:12 Glucose (Fingerstick) 118 mg/dL (70-99) 178 mg/dL (70-99) Sodium Level 134 mmol/L (136-145) Potassium Level 4.2 mmol/L (3.5-5.1) Chloride Level 96 mmol/L (98-107) Carbon Dioxide Level 29 mmol/L (21-32) Anion Gap 9 (6-14) Blood Urea Nitrogen 70 mg/dL (7-20) Creatinine 4.2 mg/dL (0.6-1.0) Estimated GFR (Cockcroft-Gault) 10.9 Glucose Level 116 mg/dL (70-99) Calcium Level 9.2 mg/dL (8.5-10.1) Phosphorus Level 4.0 mg/dL (2.6-4.7) Albumin 2.0 g/dL (3.4-5.0) O2 Saturation 91 % (92-99) Arterial Blood pH 7.39 (7.35-7.45) Arterial Blood pCO2 at Patient Temp 45 mmHg (35-46) Arterial Blood pO2 at Patient Temp 62 mmHg (75-108) Arterial Blood HCO3 26 mmol/L (21-28) Arterial Blood Base Excess 1 mmol/L (-3-3) FiO2 100 Test 05/18/20 05:00 Sodium Level 129 mmol/L (136-145) Potassium Level 3.7 mmol/L (3.5-5.1) Chloride Level 93 mmol/L (98-107) Carbon Dioxide Level 27 mmol/L (21-32) Anion Gap 9 (6-14) Blood Urea Nitrogen 66 mg/dL (7-20) Creatinine 4.2 mg/dL (0.6-1.0) Estimated GFR (Cockcroft-Gault) 10.9 Glucose Level 134 mg/dL (70-99) Calcium Level 8.7 mg/dL (8.5-10.1) Phosphorus Level 4.1 mg/dL (2.6-4.7) Albumin 1.9 g/dL (3.4-5.0) Laboratory Tests Test 05/17/20 11:51 05/18/20 01:12 05/18/20 05:00 Glucose (Fingerstick) 178 mg/dL (70-99) O2 Saturation 91 % (92-99) Arterial Blood pH 7.39 (7.35-7.45) Arterial Blood pCO2 at Patient Temp 45 mmHg (35-46) Arterial Blood pO2 at Patient Temp 62 mmHg (75-108) Arterial Blood HCO3 26 mmol/L (21-28) Arterial Blood Base Excess 1 mmol/L (-3-3) FiO2 100 Sodium Level 129 mmol/L (136-145) Potassium Level 3.7 mmol/L (3.5-5.1) Chloride Level 93 mmol/L (98-107) Carbon Dioxide Level 27 mmol/L (21-32) Anion Gap 9 (6-14) Blood Urea Nitrogen 66 mg/dL (7-20) Creatinine 4.2 mg/dL (0.6-1.0) Estimated GFR (Cockcroft-Gault) 10.9 Glucose Level 134 mg/dL (70-99) Calcium Level 8.7 mg/dL (8.5-10.1) Phosphorus Level 4.1 mg/dL (2.6-4.7) Albumin 1.9 g/dL (3.4-5.0) Medications Active Scripts Medications Dose Route/Sig Max Daily Dose Days Date Category Dose Instructions Gabapentin 600 Mg Tablet 600 Mg PO HS 04/27/20 Reported Gabapentin (Gabapentin) 300 Mg Capsule 300 Mg PO DAILY 04/27/20 Reported Lantus Solostar (Insulin Glargine,Hum.rec.anlog) 100 Unit/1 Ml Insuln.pen 75 Unit SQ BID 09/19/19 Reported Januvia (Sitagliptin Phosphate) 25 Mg Tablet 25 Mg PO DAILY 09/19/19 Reported Novolog (Insulin Aspart) 100 Unit/1 Ml Cartridge 0 SQ TIDAC 01/26/19 Reported Sliding scale; patient has printout (at home) of scale. Unknown at this time. Singulair Tablet (Montelukast Sodium) 10 Mg Tablet 10 Mg PO HS 11/24/18 Reported Atorvastatin Calcium 40 Mg Tablet 1 Tab PO QHS 11/24/18 Reported Torsemide 20 Mg Tablet 2 Tab PO BID 11/24/18 Reported Cymbalta (Duloxetine Hcl) 30 Mg Capsule.dr 1 Cap PO BID 11/24/18 Reported Daily Jalen (Multivitamin) 1 Each Tablet 1 Each PO DAILY 11/24/18 Reported Comments CXR 05/11 IMPRESSION: Increase in diffuse infiltrate. CTA chest IMPRESSION: 1. No evidence of pulmonary thromboembolic disease. 2. Multifocal bilateral groundglass opacities and consolidations, consistent with patient's history of infection. 3. Dilated pulmonary trunk, which can be seen with pulmonary hypertension. Impression . IMPRESSION: 1. Acute hypoxemic respiratory failure secondary to COVID-19 viral pneumonia./ ALI/ARDS 2. COVID-[address] angiogram, no evidence of pulmonary embolism. 4. Chronic kidney disease, on peritoneal dialysis. 5. Morbid obesity. 6. Obstructive sleep apnea. 7. Hyperlipidemia. 8. Hypertension. Plan . PLAN: Continue supplemental oxygen to keep oxygen saturations greater than 92%, currently on [id number]% and 40 L Pt. has completed full course of steroids Remains off ABX PT. has completed Full course of remdesivir Follow nephrology recommendations in regards to peritoneal dialysis Physical therapy/Occupational Therapy DVT/GI prophylaxis Discussed with RN and RT Social work for D/C planning LTACH-- waiting for insurance authorization RAFAL SINHA MD May 18, 2020 09:59
[2020-05-18] MEDS: STERILE WATER for RESP 1,000 ML BAG. INH PRN ×2 (10:44→23:51)
[2020-05-18] MEDS ORDERED: IV NORMAL SALINE 1000ML BAG 1,000 ML IV ONE (11:15)
--- NOTE | 2020-05-18 11:23 | PDOC ---
DATE OF SERVICE DATE: 05/18/20 TIME: 11:09 SUBJECTIVE ROS stable OBJECTIVE Vital Signs Vital Signs Date Time Temp Pulse Resp B/P (MAP) Pulse Ox O2 Delivery O2 Flow Rate FiO2 05/18/20 10:45 93 VAPOTHERM 40.0 05/18/20 10:00 85 19 135/88 (104) 05/18/20 08:00 98.1 98.1 I & 0 Intake and Output 05/18/20 07:00 Intake Total 340 ml Output Total 335 ml Balance 5 ml Intake Oral 340 ml Output Urine Total 335 ml # Bowel Movements 9 PHYSICAL EXAM Physical Exam GENERAL: NAD HEENT: Anicteric. on vapotherm NECK: Supple, no JVD. LUNGS: Decreased breath sounds. No wheezing. HEART: S1, S2. No gallops or murmurs. ABDOMEN: Soft bowel sounds present nontender , PD catheter + , no redness or discharge from exit site per weighmaster EXTREMITIES: No edema, no cyanosis. DERMATOLOGIC: Warm, dry. No generalized rash. NEUROLOGIC: awake, alert Toro + DIAGNOSIS/ASSESSMENT Assessment & Plan ESRD - on peritoneal dialysis at [facility]; has RRF, on Torsemide BID seen on PD, tolerating well, No concerns voiced by weighmaster, has significant RRF no last fill, Continue APD as ordered, Edward Lorenz Hyponatremia ? 2/2 diarrhea , Gentle IV hydration, Re-eval in am Azotemia- BUN up 2/2 Steroids , dced 05/06, improving COVID-19 infection- Status post remdesivir, steroids DC'd. Acute hypoxic respiratory failure due to COVID-19 viral pneumonia- on Vapotherm Diabetes mellitus. Morbid obesity. History of obstructive sleep apnea. Hypertension- BP stable DIAGNOSIS/ASSESSMENT Assessment & Plan ESRD/ARF: Current fluid and E-lyte status does not necessitate emergent need for dialysis. Will re-evaluate for dialysis in the am and continue on [] schedule. ANEMIA; [] Aranap as ordered, [] Transfuse [] with next HD as needed HTN: Current BP meds as reviewed. See orders for changes. BONE & MINERAL: [] Discussed Plan of Care with family [] at bedside [] over the phone COMMENT/RELEVANT DATA Meds Current Medications Medications (Trade) Dose Ordered Sig/Mya Start Time Stop Time Status Last Admin Dose Admin Acetaminophen (Tylenol) 650 mg PRN Q4HRS PRN 12/19/20 23:15 05/14/20 12:21 650 MG Amino Acids/ Glycerin/ Electrolytes 1,000 ml @ 80 mls/hr [id number] 05/04/20 10:15 05/07/20 12:31 DC 05/07/20 05:27 80 MLS/HR Ascorbic Acid (Vitamin C) 1,000 mg DAILY 04/28/20 13:00 04/30/20 08:57 DC 04/30/20 08:11 1,000 MG Atorvastatin Calcium (Lipitor) 40 mg QHS 04/27/20 21:00 04/30/20 08:57 DC 04/29/20 19:57 40 MG Azithromycin 250 ml @ 250 mls/hr 1X ONCE 04/26/20 23:00 04/26/20 23:59 DC 04/26/20 23:18 250 MLS/HR Carvedilol (Coreg) 25 mg BIDWMEALS 05/01/20 17:00 05/18/20 07:38 25 MG Ceftriaxone Sodium (Rocephin) 1 gm Q24H 04/28/20 13:00 05/03/20 09:20 DC 05/02/20 12:20 1 GM Cyclobenzaprine HCl (Flexeril) 10 mg PRN QID PRN 04/28/20 21:00 05/16/20 08:20 10 MG Dexamethasone (Decadron) 4 mg DAILYWBKFT 05/04/20 08:00 05/06/20 08:33 DC 05/06/20 08:15 4 MG Dextrose (Dextrose 50%-Water Syringe) 12.5 gm PRN Q15MIN PRN 04/27/20 04:00 05/03/20 18:50 25 GM Docusate Sodium (Colace) 100 mg BID 05/01/20 12:45 05/13/20 18:00 DC 05/13/20 09:01 100 MG Doxycycline Hyclate (Vibra-Tab) 100 mg BID 04/28/20 13:00 05/03/20 09:20 DC 05/03/20 08:36 100 MG Duloxetine HCl (Cymbalta) 30 mg BID 04/27/20 09:00 05/18/20 08:37 30 MG Enoxaparin Sodium (Lovenox 30mg Syringe) 30 mg Q24H 04/28/20 13:00 04/28/20 12:38 DC Gabapentin (Neurontin) 600 mg QHS 04/27/20 04:30 05/17/20 21:51 600 MG Heparin Sodium (Porcine) (Heparin Sodium) 5,000 unit Q8HRS 04/28/20 14:00 05/18/20 05:45 5,000 UNIT Info (CONTRAST GIVEN -- Rx MONITORING) 1 each PRN DAILY PRN 04/26/20 20:45 04/28/20 20:44 DC Insulin Glargine (Lantus Syringe) 75 unit DAILY 05/17/20 09:00 05/18/20 08:39 75 UNIT Insulin Human Lispro (HumaLOG) 20 units PRN BFRMEALHC PRN 05/06/20 03:00 05/13/20 09:05 20 UNITS Iohexol (Omnipaque 350 Mg/ml) 100 ml 1X ONCE 04/26/20 20:45 04/26/20 20:46 DC 04/26/20 21:20 100 ML Lactobacillus Rhamnosus (Culturelle) 1 cap BID 04/29/20 21:00 05/18/20 08:36 1 CAP Lactulose (Lactulose) 20 gm PRN 1X PRN 05/03/20 13:45 05/13/20 16:48 DC 05/12/20 15:41 20 GM Linagliptin (Tradjenta) 5 mg DAILY 04/27/20 09:00 05/18/20 08:37 5 MG Loperamide HCl (Imodium) 4 mg PRN TID PRN 05/17/20 22:30 05/17/20 22:47 4 MG Magnesium Sulfate 50 ml @ 25 mls/hr PRN DAILY PRN 05/11/20 14:15 Montelukast Sodium (Singulair) 10 mg HS 04/27/20 21:00 04/30/20 08:57 DC 04/29/20 19:57 10 MG Multivitamins (Thera M Plus) 1 tab DAILY 04/27/20 09:00 05/18/20 08:37 1 TAB Non-Formulary Medication (Gabapentin ) 600 mg HS 04/27/20 21:00 UNV Nystatin (Nystop) 1 jackie BID 05/08/20 21:00 UNV Ondansetron HCl (Zofran Odt) 4 mg PRN Q6HRS PRN 04/28/20 12:15 05/10/20 00:08 4 MG Ondansetron HCl (Zofran) 4 mg PRN Q8HRS PRN 04/26/20 22:45 04/27/20 22:44 DC Pantoprazole Sodium (PROTONIX VIAL for IV PUSH) 40 mg DAILY 05/02/20 09:00 05/07/20 15:25 DC 05/07/20 08:22 40 MG Pantoprazole Sodium (Protonix) 40 mg DAILYAC 05/08/20 07:30 05/18/20 07:36 40 MG Polyethylene Glycol (miraLAX PACKET) 34 gm PRN BID PRN 05/13/20 18:00 Potassium Chloride/Water 100 ml @ 100 mls/hr Q1H 05/01/20 15:00 05/01/20 18:59 DC 05/01/20 19:55 100 MLS/HR Potassium Chloride (Klor-Con) 20 meq DAILYWBKFT 05/02/20 08:00 05/18/20 07:38 20 MEQ Remdesivir 100 mg/ Sodium Chloride 230 ml @ 460 mls/hr Q24H 04/29/20 14:00 05/02/20 14:29 DC 05/02/20 14:27 460 MLS/HR Remdesivir 200 mg/ Sodium Chloride 210 ml @ 210 mls/hr 1X ONCE 04/28/20 14:00 04/28/20 14:59 DC 04/28/20 15:39 210 MLS/HR Sevelamer Carbonate (Renvela) 1,600 mg TIDWMEALS 05/02/20 17:00 05/18/20 07:36 1,600 MG Simethicone (Gas-X) 80 mg PRN AFTMEALHC PRN 05/10/20 15:30 05/17/20 14:18 80 MG Sodium Chloride 1,000 ml @ 1,000 mls/hr 1X ONCE 04/26/20 19:15 04/26/20 20:14 DC 04/26/20 19:17 1,000 MLS/HR Sterile Water (WATER for RESP) 1,000 ml CONT PRN 04/30/20 20:30 05/18/20 10:44 1,000 ML Temazepam (Restoril) 15 mg PRN QHS PRN 05/13/20 18:00 05/17/20 21:51 15 MG Torsemide (Demadex) 40 mg [id number] 04/27/20 09:00 05/18/20 08:37 40 MG Vitamin B Complex/ Vitamin C (Kelly-Jalen) 1 tab DAILY 04/29/20 14:00 05/18/20 08:37 1 TAB Vitamin D (Vitamin D3) 500 unit DAILY 04/28/20 13:00 04/30/20 08:57 DC 04/30/20 08:10 500 UNIT Zinc Sulfate (Orazinc) 220 mg DAILY 04/28/20 13:00 05/18/20 08:37 220 MG Lab Laboratory Tests Test 05/17/20 11:51 05/17/20 22:03 05/18/20 01:12 05/18/20 05:00 Glucose (Fingerstick) 178 mg/dL (70-99) 216 mg/dL (70-99) O2 Saturation 91 % (92-99) Arterial Blood pH 7.39 (7.35-7.45) Arterial Blood pCO2 at Patient Temp 45 mmHg (35-46) Arterial Blood pO2 at Patient Temp 62 mmHg (75-108) Arterial Blood HCO3 26 mmol/L (21-28) Arterial Blood Base Excess 1 mmol/L (-3-3) FiO2 100 Sodium Level 129 mmol/L (136-145) Potassium Level 3.7 mmol/L (3.5-5.1) Chloride Level 93 mmol/L (98-107) Carbon Dioxide Level 27 mmol/L (21-32) Anion Gap 9 (6-14) Blood Urea Nitrogen 66 mg/dL (7-20) Creatinine 4.2 mg/dL (0.6-1.0) Estimated GFR (Cockcroft-Gault) 10.9 Glucose Level 134 mg/dL (70-99) Calcium Level 8.7 mg/dL (8.5-10.1) Phosphorus Level 4.1 mg/dL (2.6-4.7) Albumin 1.9 g/dL (3.4-5.0) Test 05/18/20 07:46 Glucose (Fingerstick) 116 mg/dL (70-99) Results All relevant outside records, renal labs, imaging studies, telemetry/EKG's were reviewed. Lilotion of Admission Dx: Justifications for Admission: Justification of Admission Dx: N/A FLORINA TRONCOSO MD May 18, 2020 11:23
--- NOTE | 2020-05-18 13:40 | PDOC ---
Provider Note Date of Service: DATE: 05/18/20 TIME: 13:39 Provider Note no change in status, glucose ok on current dose, meds same Justifications for Admission Other Justification VERNA GARCIA MD May 18, 2020 13:40
[2020-05-18] MEDS: SIMETHICONE 80 MG TAB.CHEW PO PRN (19:33)
[2020-05-18] MEDS: TEMAZEPAM 15 MG CAPSULE PO PRN (20:43)
[2020-05-18] MEDS: GABAPENTIN 300 MG CAPSULE. PO SCH (20:43)
[2020-05-18] MEDS: DICYCLOMINE HCL 10 MG CAPSULE PO PRN (22:34)
[2020-05-19] VITALS (24 sets, daily range): BP systolic 78–152; BP diastolic 58–88
[2020-05-19] MEDS: CYCLOBENZAPRINE 10 MG TABLET. PO PRN (01:17)
[2020-05-19] MEDS: SIMETHICONE 80 MG TAB.CHEW PO PRN ×2 (01:17→09:19)
[2020-05-19 05:37] LABS: CALCIUM 8.7 mg/dL (8.5-10.1); CREATININE 4.3 mg/dL (0.6-1.0); GFR 10.7; POTASSIUM 4.1 mmol/L (3.5-5.1)
[2020-05-19] MEDS: SEVELAMER CARBONATE 800 MG TABLET. PO SCH ×3 (08:32→16:50)
[2020-05-19] MEDS: CARVEDILOL 12.5 MG TABLET. PO SCH ×2 (08:32→16:49)
[2020-05-19] MEDS: FOLIC/VIT B COMP W-C (RENAL) TABLET. PO SCH (08:32)
[2020-05-19] MEDS: TORSEMIDE 20 MG TABLET. PO SCH ×2 (08:32→16:00)
[2020-05-19] MEDS: LINAGLIPTIN 5 MG TABLET PO SCH (08:32)
[2020-05-19] MEDS: MULTIVITAMIN with MINERAL TABLET. PO SCH (08:32)
[2020-05-19] MEDS: ZINC SULFATE 220 MG CAPSULE. PO SCH (08:32)
[2020-05-19] MEDS: DULoxetine HCL 30 MG CAPSULE.DR PO SCH ×3 (08:32→22:29)
[2020-05-19] MEDS: LACTOBACILLUS RHAMNOSUS GG 1 CAPSULE. PO SCH ×2 (08:33→21:00)
[2020-05-19] MEDS: NYSTATIN TOPICAL POWDER 15GM BOTTLE. TP SCH ×2 (08:33→21:00)
[2020-05-19] MEDS: POTASSIUM CHLORIDE 20 MEQ TABLET.ER. PO SCH (08:33)
[2020-05-19] MEDS: PANTOPRAZOLE 40 MG TABLET.DR. PO SCH (08:33)
[2020-05-19] MEDS: HEPARIN for SUB-Q USE 5,000 UNIT/ML VIAL. SQ SCH ×2 (08:34→22:33)
[2020-05-19] MEDS: INSULIN GLARGINE SYRINGE. SQ SCH (09:00)
[2020-05-19 09:03] LABS: BASE EXCESS ABG 1 mmol/L (-3-3); HCO3 ABG 28 mmol/L (21-28); PCO2 ABG 52 mmHg (35-46); PO2 ABG 64 mmHg (75-108); SAT O2 ABG 91 % (92-99)
[2020-05-19 09:08] LABS: FIO2 ABG 100% VAPO+NRB
[2020-05-19] MEDS: LOPERAMIDE 2 MG CAPSULE PO PRN (09:19)
[2020-05-19] MEDS ORDERED: IV NORMAL SALINE 500ML BAG 500 ML IV PRN (09:45)
[2020-05-19] MEDS ORDERED: ATROPINE 0.5 MG/5 ML DISP.SYRINGE. IV PRN (09:45)
[2020-05-19] MEDS: DEXMEDETOMIDINE 400 MCG in IV NORMAL SALINE 100ML 96 ML IV PRN ×4 (10:04→20:41)
--- NOTE | 2020-05-19 10:13 | PDOC ---
PULMONARY PROGRESS NOTES DATE: 05/19/20 TIME: 10:11 Subjective Remains on vapotherm at 40 liters 100% and NRB 100% overnight worsening hypoxia Vitals Vital Signs Date Time Temp Pulse Resp B/P (MAP) Pulse Ox O2 Delivery O2 Flow Rate FiO2 05/19/20 09:47 94 BiPAP/CPAP 05/19/20 09:13 90 26 152/77 (102) 40.0 05/19/20 07:00 98.0 98.0 Comments Patient is seen during pandemic, visual exam performed on vapotherm 100% and 100% NRB mask No accessory muscle use no distress No obvious rash or edema General: Alert, Mild Distress Neuro Exam: Alert Labs Laboratory Tests Test 05/17/20 11:51 05/17/20 22:03 05/18/20 01:12 05/18/20 05:00 Glucose (Fingerstick) 178 mg/dL (70-99) 216 mg/dL (70-99) O2 Saturation 91 % (92-99) Arterial Blood pH 7.39 (7.35-7.45) Arterial Blood pCO2 at Patient Temp 45 mmHg (35-46) Arterial Blood pO2 at Patient Temp 62 mmHg (75-108) Arterial Blood HCO3 26 mmol/L (21-28) Arterial Blood Base Excess 1 mmol/L (-3-3) FiO2 100 Sodium Level 129 mmol/L (136-145) Potassium Level 3.7 mmol/L (3.5-5.1) Chloride Level 93 mmol/L (98-107) Carbon Dioxide Level 27 mmol/L (21-32) Anion Gap 9 (6-14) Blood Urea Nitrogen 66 mg/dL (7-20) Creatinine 4.2 mg/dL (0.6-1.0) Estimated GFR (Cockcroft-Gault) 10.9 Glucose Level 134 mg/dL (70-99) Calcium Level 8.7 mg/dL (8.5-10.1) Phosphorus Level 4.1 mg/dL (2.6-4.7) Albumin 1.9 g/dL (3.4-5.0) Test 05/18/20 07:46 05/18/20 11:30 05/18/20 16:38 05/18/20 20:46 Glucose (Fingerstick) 116 mg/dL (70-99) 150 mg/dL (70-99) 112 mg/dL (70-99) 165 mg/dL (70-99) Test 05/19/20 05:00 05/19/20 07:37 05/19/20 08:55 Sodium Level 126 mmol/L (136-145) Potassium Level 4.1 mmol/L (3.5-5.1) Chloride Level 93 mmol/L (98-107) Carbon Dioxide Level 28 mmol/L (21-32) Anion Gap 5 (6-14) Blood Urea Nitrogen 63 mg/dL (7-20) Creatinine 4.3 mg/dL (0.6-1.0) Estimated GFR (Cockcroft-Gault) 10.7 Glucose Level 137 mg/dL (70-99) Calcium Level 8.7 mg/dL (8.5-10.1) Glucose (Fingerstick) 80 mg/dL (70-99) O2 Saturation 91 % (92-99) Arterial Blood pH 7.35 (7.35-7.45) Arterial Blood pCO2 at Patient Temp 52 mmHg (35-46) Arterial Blood pO2 at Patient Temp 64 mmHg (75-108) Arterial Blood HCO3 28 mmol/L (21-28) Arterial Blood Base Excess 1 mmol/L (-3-3) FiO2 100% vapo+nrb Laboratory Tests Test 05/18/20 11:30 05/18/20 16:38 05/18/20 20:46 05/19/20 05:00 Glucose (Fingerstick) 150 mg/dL (70-99) 112 mg/dL (70-99) 165 mg/dL (70-99) Sodium Level 126 mmol/L (136-145) Potassium Level 4.1 mmol/L (3.5-5.1) Chloride Level 93 mmol/L (98-107) Carbon Dioxide Level 28 mmol/L (21-32) Anion Gap 5 (6-14) Blood Urea Nitrogen 63 mg/dL (7-20) Creatinine 4.3 mg/dL (0.6-1.0) Estimated GFR (Cockcroft-Gault) 10.7 Glucose Level 137 mg/dL (70-99) Calcium Level 8.7 mg/dL (8.5-10.1) Test 05/19/20 07:37 05/19/20 08:55 Glucose (Fingerstick) 80 mg/dL (70-99) O2 Saturation 91 % (92-99) Arterial Blood pH 7.35 (7.35-7.45) Arterial Blood pCO2 at Patient Temp 52 mmHg (35-46) Arterial Blood pO2 at Patient Temp 64 mmHg (75-108) Arterial Blood HCO3 28 mmol/L (21-28) Arterial Blood Base Excess 1 mmol/L (-3-3) FiO2 100% vapo+nrb Medications Active Scripts Medications Dose Route/Sig Max Daily Dose Days Date Category Dose Instructions Gabapentin 600 Mg Tablet 600 Mg PO HS 04/27/20 Reported Gabapentin (Gabapentin) 300 Mg Capsule 300 Mg PO DAILY 04/27/20 Reported Lantus Solostar (Insulin Glargine,Hum.rec.anlog) 100 Unit/1 Ml Insuln.pen 75 Unit SQ BID 09/19/19 Reported Januvia (Sitagliptin Phosphate) 25 Mg Tablet 25 Mg PO DAILY 09/19/19 Reported Novolog (Insulin Aspart) 100 Unit/1 Ml Cartridge 0 SQ TIDAC 01/26/19 Reported Sliding scale; patient has printout (at home) of scale. Unknown at this time. Singulair Tablet (Montelukast Sodium) 10 Mg Tablet 10 Mg PO HS 11/24/18 Reported Atorvastatin Calcium 40 Mg Tablet 1 Tab PO QHS 11/24/18 Reported Torsemide 20 Mg Tablet 2 Tab PO BID 11/24/18 Reported Cymbalta (Duloxetine Hcl) 30 Mg Capsule. 1 Cap PO BID 11/24/18 Reported Daily Jalen (Multivitamin) 1 Each Tablet 1 Each PO DAILY 11/24/18 Reported Comments CXR 1/2 IMPRESSION: Increase in diffuse infiltrate. CTA chest IMPRESSION: 1. No evidence of pulmonary thromboembolic disease. 2. Multifocal bilateral groundglass opacities and consolidations, consistent with patient's history of infection. 3. Dilated pulmonary trunk, which can be seen with pulmonary hypertension. Impression . IMPRESSION: 1. Acute hypoxemic respiratory failure secondary to COVID-19 viral pneumonia./ ALI/ARDS 2. COVID-[address] angiogram, no evidence of pulmonary embolism. 4. Chronic kidney disease, on peritoneal dialysis. 5. Morbid obesity. 6. Obstructive sleep apnea. 7. Hyperlipidemia. 8. Hypertension. Plan . PLAN: Continue supplemental oxygen to keep oxygen saturations greater than 92%,start BIPAP 100%, monitor closely for need for intubation Pt. has completed full course of steroids Remains off ABX Pt. has completed Full course of remdesivir Follow nephrology recommendations in regards to peritoneal dialysis Physical therapy/Occupational Therapy DVT/GI prophylaxis Discussed with RN and RT Social work for D/C planning LTACH-- waiting for insurance authorization Poor prognosis, no clinical improvement Pt. is Full Code RAFAL SINHA MD May 19, 2020 10:13
--- NOTE | 2020-05-19 13:21 | PDOC ---
DATE OF SERVICE DATE: 05/19/20 TIME: 13:12 SUBJECTIVE ROS worsening hypoxia , currently on Bipap OBJECTIVE Vital Signs Vital Signs Date Time Temp Pulse Resp B/P (MAP) Pulse Ox O2 Delivery O2 Flow Rate FiO2 05/19/20 12:00 Bi-pap 40.0 05/19/20 12:00 90 20 108/60 (76) 97 05/19/20 11:00 97.6 97.6 I & 0 Intake and Output 05/19/20 07:00 Intake Total 1915 ml Output Total 1045 ml Balance 870 ml Intake Oral 1080 ml IV Total 835 ml Output Urine Total 1045 ml PHYSICAL EXAM Physical Exam GENERAL: NAD HEENT: Anicteric. on vapotherm NECK: Supple, no JVD. LUNGS: Decreased breath sounds. No wheezing. HEART: S1, S2. No gallops or murmurs. ABDOMEN: Soft bowel sounds present nontender , PD catheter + , no redness or discharge from exit site per vp training EXTREMITIES: No edema, no cyanosis. DERMATOLOGIC: Warm, dry. No generalized rash. NEUROLOGIC: awake, alert Toro + DIAGNOSIS/ASSESSMENT Assessment & Plan ESRD - on peritoneal dialysis at [facility]; has RRF, on Torsemide BID seen on PD, tolerating well, No concerns voiced by vp training, has significant RRF no last fill, Continue APD as ordered, Edward Lorenz Hyponatremia - worsening, no improvement, UF + UOP - approx 2 lts , may need 3%, not started yet 2/2 worsening resp status . Edward nursing Azotemia- BUN up 2/2 Steroids , dced 05/06, improving COVID-19 infection- Status post remdesivir, steroids DC'd. Acute hypoxic respiratory failure due to COVID-19 viral pneumonia- worsening hypoxia, CxR ordered for tomorrow by Pulm . Plan to intubate if unstable Diabetes mellitus. Morbid obesity. History of obstructive sleep apnea. Hypertension- BP stable COMMENT/RELEVANT DATA Meds Current Medications Medications (Trade) Dose Ordered Sig/Mya Start Time Stop Time Status Last Admin Dose Admin Acetaminophen (Tylenol) 650 mg PRN Q4HRS PRN 04/27/20 23:15 05/14/20 12:21 650 MG Amino Acids/ Glycerin/ Electrolytes 1,000 ml @ 80 mls/hr [id number] 05/04/20 10:15 05/07/20 12:31 DC 05/07/20 05:27 80 MLS/HR Ascorbic Acid (Vitamin C) 1,000 mg DAILY 04/28/20 13:00 04/30/20 08:57 DC 04/30/20 08:11 1,000 MG Atorvastatin Calcium (Lipitor) 40 mg QHS 04/27/20 21:00 04/30/20 08:57 DC 04/29/20 19:57 40 MG Atropine Sulfate (ATROPINE 0.5mg SYRINGE) 0.5 mg PRN Q5MIN PRN 05/19/20 09:45 Azithromycin 250 ml @ 250 mls/hr 1X ONCE 04/26/20 23:00 04/26/20 23:59 DC 04/26/20 23:18 250 MLS/HR Carvedilol (Coreg) 25 mg BIDWMEALS 05/01/20 17:00 05/19/20 08:32 25 MG Ceftriaxone Sodium (Rocephin) 1 gm Q24H 04/28/20 13:00 05/03/20 09:20 DC 05/02/20 12:20 1 GM Cyclobenzaprine HCl (Flexeril) 10 mg PRN QID PRN 04/28/20 21:00 05/19/20 01:17 10 MG Dexamethasone (Decadron) 4 mg DAILYWBKFT 05/04/20 08:00 05/06/20 08:33 DC 05/06/20 08:15 4 MG Dexmedetomidine HCl 400 mcg/ Sodium Chloride 100 ml @ 6.99 mls/hr CONT PRN 05/19/20 09:45 05/19/20 10:04 6.99 MLS/HR Dextrose (Dextrose 50%-Water Syringe) 12.5 gm PRN Q15MIN PRN 04/27/20 04:00 05/03/20 18:50 25 GM Dicyclomine HCl (Bentyl) 10 mg PRN TID PRN 05/18/20 22:15 05/18/20 22:34 10 MG Docusate Sodium (Colace) 100 mg BID 05/01/20 12:45 05/13/20 18:00 DC 05/13/20 09:01 100 MG Doxycycline Hyclate (Vibra-Tab) 100 mg BID 04/28/20 13:00 05/03/20 09:20 DC 05/03/20 08:36 100 MG Duloxetine HCl (Cymbalta) 30 mg BID 04/27/20 09:00 05/19/20 08:32 30 MG Enoxaparin Sodium (Lovenox 30mg Syringe) 30 mg Q24H 04/28/20 13:00 04/28/20 12:38 DC Gabapentin (Neurontin) 600 mg QHS 04/27/20 04:30 05/18/20 20:43 600 MG Heparin Sodium (Porcine) (Heparin Sodium) 5,000 unit Q12HR 05/19/20 09:00 05/19/20 08:34 5,000 UNIT Info (CONTRAST GIVEN -- Rx MONITORING) 1 each PRN DAILY PRN 04/26/20 20:45 04/28/20 20:44 DC Insulin Glargine (Lantus Syringe) 75 unit DAILY 05/17/20 09:00 05/18/20 08:39 75 UNIT Insulin Human Lispro (HumaLOG) 20 units PRN BFRMEALHC PRN 05/06/20 03:00 05/13/20 09:05 20 UNITS Iohexol (Omnipaque 350 Mg/ml) 100 ml 1X ONCE 04/26/20 20:45 04/26/20 20:46 DC 04/26/20 21:20 100 ML Lactobacillus Rhamnosus (Culturelle) 1 cap BID 04/29/20 21:00 05/19/20 08:33 1 CAP Lactulose (Lactulose) 20 gm PRN 1X PRN 05/03/20 13:45 05/13/20 16:48 DC 05/12/20 15:41 20 GM Linagliptin (Tradjenta) 5 mg DAILY 04/27/20 09:00 05/19/20 08:32 5 MG Loperamide HCl (Imodium) 4 mg PRN TID PRN 05/17/20 22:30 05/19/20 09:19 4 MG Lorazepam (Ativan) 1 mg PRN Q8HRS PRN 05/18/20 22:15 05/18/20 22:34 1 MG Magnesium Sulfate 50 ml @ 25 mls/hr PRN DAILY PRN 05/11/20 14:15 Montelukast Sodium (Singulair) 10 mg HS 04/27/20 21:00 04/30/20 08:57 DC 04/29/20 19:57 10 MG Multivitamins (Thera M Plus) 1 tab DAILY 04/27/20 09:00 05/19/20 08:32 1 TAB Non-Formulary Medication (Gabapentin ) 600 mg HS 04/27/20 21:00 UNV Nystatin (Nystop) 1 jackie BID 05/08/20 21:00 UNV Ondansetron HCl (Zofran Odt) 4 mg PRN Q6HRS PRN 04/28/20 12:15 05/10/20 00:08 4 MG Ondansetron HCl (Zofran) 4 mg PRN Q8HRS PRN 04/26/20 22:45 04/27/20 22:44 DC Pantoprazole Sodium (PROTONIX VIAL for IV PUSH) 40 mg DAILY 05/02/20 09:00 05/07/20 15:25 DC 05/07/20 08:22 40 MG Pantoprazole Sodium (Protonix) 40 mg DAILYAC 05/08/20 07:30 05/19/20 08:33 40 MG Polyethylene Glycol (miraLAX PACKET) 34 gm PRN BID PRN 05/13/20 18:00 Potassium Chloride/Water 100 ml @ 100 mls/hr Q1H 05/01/20 15:00 05/01/20 18:59 DC 05/01/20 19:55 100 MLS/HR Potassium Chloride (Klor-Con) 20 meq DAILYWBKFT 05/02/20 08:00 05/19/20 08:33 20 MEQ Remdesivir 100 mg/ Sodium Chloride 230 ml @ 460 mls/hr Q24H 04/29/20 14:00 05/02/20 14:29 DC 05/02/20 14:27 460 MLS/HR Remdesivir 200 mg/ Sodium Chloride 210 ml @ 210 mls/hr 1X ONCE 04/28/20 14:00 04/28/20 14:59 DC 04/28/20 15:39 210 MLS/HR Sevelamer Carbonate (Renvela) 1,600 mg TIDWMEALS 05/02/20 17:00 05/19/20 08:32 1,600 MG Simethicone (Gas-X) 80 mg PRN AFTMEALHC PRN 05/10/20 15:30 05/19/20 09:19 80 MG Sodium Chloride 500 ml @ 500 mls/hr 1X PRN PRN 05/19/20 09:45 Sterile Water (WATER for RESP) 1,000 ml CONT PRN 04/30/20 20:30 05/18/20 23:51 1,000 ML Temazepam (Restoril) 15 mg PRN QHS PRN 05/13/20 18:00 05/18/20 20:43 15 MG Torsemide (Demadex) 40 mg [id number] 04/27/20 09:00 05/19/20 08:32 40 MG Vitamin B Complex/ Vitamin C (Kelly-Jalen) 1 tab DAILY 04/29/20 14:00 05/19/20 08:32 1 TAB Vitamin D (Vitamin D3) 500 unit DAILY 04/28/20 13:00 04/30/20 08:57 DC 04/30/20 08:10 500 UNIT Zinc Sulfate (Orazinc) 220 mg DAILY 04/28/20 13:00 05/19/20 08:32 220 MG Lab Laboratory Tests Test 05/18/20 16:38 05/18/20 20:46 05/19/20 05:00 05/19/20 07:37 Glucose (Fingerstick) 112 mg/dL (70-99) 165 mg/dL (70-99) 80 mg/dL (70-99) Sodium Level 126 mmol/L (136-145) Potassium Level 4.1 mmol/L (3.5-5.1) Chloride Level 93 mmol/L (98-107) Carbon Dioxide Level 28 mmol/L (21-32) Anion Gap 5 (6-14) Blood Urea Nitrogen 63 mg/dL (7-20) Creatinine 4.3 mg/dL (0.6-1.0) Estimated GFR (Cockcroft-Gault) 10.7 Glucose Level 137 mg/dL (70-99) Calcium Level 8.7 mg/dL (8.5-10.1) Test 05/19/20 08:55 05/19/20 11:31 O2 Saturation 91 % (92-99) Arterial Blood pH 7.35 (7.35-7.45) Arterial Blood pCO2 at Patient Temp 52 mmHg (35-46) Arterial Blood pO2 at Patient Temp 64 mmHg (75-108) Arterial Blood HCO3 28 mmol/L (21-28) Arterial Blood Base Excess 1 mmol/L (-3-3) FiO2 100% vapo+nrb Glucose (Fingerstick) 122 mg/dL (70-99) Results All relevant outside records, renal labs, imaging studies, telemetry/EKG's were reviewed. Justicifation of Admission Dx: Justifications for Admission: Justification of Admission Dx: N/A FLORINA TRONCOSO MD May 19, 2020 13:21
[2020-05-19 16:12] LABS: BASE EXCESS ABG -2 mmol/L (-3-3); HCO3 ABG 26 mmol/L (21-28); PCO2 ABG 53 mmHg (35-46); PO2 ABG 92 mmHg (75-108); SAT O2 ABG 97 % (92-99)
[2020-05-19 16:27] LABS: FIO2 ABG 100%
[2020-05-19] MEDS ORDERED: SODIUM BICARB ADULT 8.4% 50 MEQ/50 ML DISP.SYRIN. IV ONE (16:30)
[2020-05-19] MEDS: GABAPENTIN 300 MG CAPSULE. PO SCH ×2 (21:00→22:30)
[2020-05-20] VITALS (22 sets, daily range): BP systolic 85–186; BP diastolic 54–92
[2020-05-20] MEDS: DEXMEDETOMIDINE 400 MCG in IV NORMAL SALINE 100ML 96 ML IV PRN ×7 (00:23→21:55)
--- NOTE | 2020-05-20 08:21 | RAD ---
XR CHEST 1V INDICATION: Reason: resp. failure ICU#108 / Spl. Instructions: / History: . COMPARISON STUDY: 05/11/2020. FINDINGS: Lungs: Normal lung volume. Slightly improved diffuse bilateral heterogeneous opacities. Pleura: Stable pleural spaces. Heart and Mediastinum: Stable cardiomediastinal silhouette and great vessels. Bones and Soft Tissues: Stable regional skeleton and soft tissues. IMPRESSION: Slightly improved diffuse bilateral opacities. Electronically signed by: Peter Hernandez MD (05/20/2020 8:08 AM) [id number]
[2020-05-20] MEDS: FOLIC/VIT B COMP W-C (RENAL) TABLET. PO SCH (08:32)
[2020-05-20] MEDS: MULTIVITAMIN with MINERAL TABLET. PO SCH (08:32)
[2020-05-20] MEDS: LINAGLIPTIN 5 MG TABLET PO SCH (08:32)
[2020-05-20] MEDS: PANTOPRAZOLE 40 MG TABLET.DR. PO SCH (08:32)
[2020-05-20] MEDS: ZINC SULFATE 220 MG CAPSULE. PO SCH (08:32)
[2020-05-20] MEDS: POTASSIUM CHLORIDE 20 MEQ TABLET.ER. PO SCH (08:32)
[2020-05-20] MEDS: CARVEDILOL 12.5 MG TABLET. PO SCH ×2 (08:33→16:49)
[2020-05-20] MEDS: TORSEMIDE 20 MG TABLET. PO SCH ×2 (08:33→16:48)
[2020-05-20] MEDS: SEVELAMER CARBONATE 800 MG TABLET. PO SCH ×3 (08:33→16:48)
[2020-05-20] MEDS: DULoxetine HCL 30 MG CAPSULE.DR PO SCH ×2 (08:33→20:31)
[2020-05-20] MEDS: LACTOBACILLUS RHAMNOSUS GG 1 CAPSULE. PO SCH ×2 (08:34→20:31)
[2020-05-20] MEDS: HEPARIN for SUB-Q USE 5,000 UNIT/ML VIAL. SQ SCH ×2 (08:34→20:35)
--- NOTE | 2020-05-20 08:50 | PDOC ---
Provider Note Date of Service: DATE: 05/20/20 TIME: 08:49 Provider Note vss, no status change- glucose control good on current dose, ltac placement in process Justifications for Admission Other Justification VERNA GARCIA MD May 20, 2020 08:50
[2020-05-20] MEDS: NYSTATIN TOPICAL POWDER 15GM BOTTLE. TP SCH ×3 (09:00→20:35)
[2020-05-20] MEDS: INSULIN GLARGINE SYRINGE. SQ SCH (09:00)
--- NOTE | 2020-05-20 09:57 | PDOC ---
PULMONARY PROGRESS NOTES DATE: 05/20/20 TIME: 09:53 Subjective Now on BIPAP 100% Afebrile no overnight events Vitals Vital Signs Date Time Temp Pulse Resp B/P (MAP) Pulse Ox O2 Delivery O2 Flow Rate FiO2 05/20/20 09:00 99 BiPAP/CPAP 05/20/20 08:33 71 101/68 05/20/20 08:00 14 05/20/20 07:00 98.1 98.1 05/19/20 20:00 Comments Patient is seen during COVID-19 pandemic, visual exam performed now on BIPAP No accessory muscle use no distress No obvious rash or edema General: Alert, Mild Distress Neuro Exam: Alert Labs Laboratory Tests Test 05/18/20 11:30 05/18/20 16:38 05/18/20 20:46 05/19/20 05:00 Glucose (Fingerstick) 150 mg/dL (70-99) 112 mg/dL (70-99) 165 mg/dL (70-99) Sodium Level 126 mmol/L (136-145) Potassium Level 4.1 mmol/L (3.5-5.1) Chloride Level 93 mmol/L (98-107) Carbon Dioxide Level 28 mmol/L (21-32) Anion Gap 5 (6-14) Blood Urea Nitrogen 63 mg/dL (7-20) Creatinine 4.3 mg/dL (0.6-1.0) Estimated GFR (Cockcroft-Gault) 10.7 Glucose Level 137 mg/dL (70-99) Calcium Level 8.7 mg/dL (8.5-10.1) Test 05/19/20 07:37 05/19/20 08:55 05/19/20 11:31 05/19/20 16:00 Glucose (Fingerstick) 80 mg/dL (70-99) 122 mg/dL (70-99) O2 Saturation 91 % (92-99) 97 % (92-99) Arterial Blood pH 7.35 (7.35-7.45) 7.30 (7.35-7.45) Arterial Blood pCO2 at Patient Temp 52 mmHg (35-46) 53 mmHg (35-46) Arterial Blood pO2 at Patient Temp 64 mmHg (75-108) 92 mmHg (75-108) Arterial Blood HCO3 28 mmol/L (21-28) 26 mmol/L (21-28) Arterial Blood Base Excess 1 mmol/L (-3-3) -2 mmol/L (-3-3) FiO2 100% vapo+nrb 100% Test 05/19/20 17:16 05/19/20 20:39 Glucose (Fingerstick) 132 mg/dL (70-99) 121 mg/dL (70-99) Laboratory Tests Test 05/19/20 11:31 05/19/20 16:00 05/19/20 17:16 05/19/20 20:39 Glucose (Fingerstick) 122 mg/dL (70-99) 132 mg/dL (70-99) 121 mg/dL (70-99) O2 Saturation 97 % (92-99) Arterial Blood pH 7.30 (7.35-7.45) Arterial Blood pCO2 at Patient Temp 53 mmHg (35-46) Arterial Blood pO2 at Patient Temp 92 mmHg (75-108) Arterial Blood HCO3 26 mmol/L (21-28) Arterial Blood Base Excess -2 mmol/L (-3-3) FiO2 100% Medications Active Scripts Medications Dose Route/Sig Max Daily Dose Days Date Category Dose Instructions Gabapentin 600 Mg Tablet 600 Mg PO HS 04/27/20 Reported Gabapentin (Gabapentin) 300 Mg Capsule 300 Mg PO DAILY 04/27/20 Reported Lantus Solostar (Insulin Glargine,Hum.rec.anlog) 100 Unit/1 Ml Insuln.pen 75 Unit SQ BID 09/19/19 Reported Januvia (Sitagliptin Phosphate) 25 Mg Tablet 25 Mg PO DAILY 09/19/19 Reported Novolog (Insulin Aspart) 100 Unit/1 Ml Cartridge 0 SQ TIDAC 01/26/19 Reported Sliding scale; patient has printout (at home) of scale. Unknown at this time. Singulair Tablet (Montelukast Sodium) 10 Mg Tablet 10 Mg PO HS 11/24/18 Reported Atorvastatin Calcium 40 Mg Tablet 1 Tab PO QHS 11/24/18 Reported Torsemide 20 Mg Tablet 2 Tab PO BID 11/24/18 Reported Cymbalta (Duloxetine Hcl) 30 Mg Capsule. 1 Cap PO BID 11/24/18 Reported Daily Jalen (Multivitamin) 1 Each Tablet 1 Each PO DAILY 11/24/18 Reported Comments CXR 05/20 IMPRESSION: Slightly improved diffuse bilateral opacities. CTA chest IMPRESSION: 1. No evidence of pulmonary thromboembolic disease. 2. Multifocal bilateral groundglass opacities and consolidations, consistent with patient's history of infection. 3. Dilated pulmonary trunk, which can be seen with pulmonary hypertension. Impression . IMPRESSION: 1. Acute hypoxemic respiratory failure secondary to COVID-19 viral pneumonia./ ALI/ARDS 2. COVID-[address] angiogram, no evidence of pulmonary embolism. 4. Chronic kidney disease, on peritoneal dialysis. 5. Morbid obesity. 6. Obstructive sleep apnea. 7. Hyperlipidemia. 8. Hypertension. Plan . PLAN: Continue supplemental oxygen to keep oxygen saturations greater than 92%, Continue BIPAP 100%, monitor closely for need for intubation Follow CXR/ABG-- CXR diffuse infiltrates, Decrease Fi02 to 80% Pt. has completed full course of steroids Remains off ABX Pt. has completed Full course of remdesivir Follow nephrology recommendations in regards to peritoneal dialysis, D/W Dr. Waggoner possible transition to HD Physical therapy/Occupational Therapy DVT/GI prophylaxis Discussed with RN and RT and Dr. Waggoner and Daughter Ximena [employer] [facility] for D/C planning LTACH-- waiting for insurance authorization, additionally assistance with establishing DPOA Poor prognosis, no clinical improvement Pt. is Full Code Critical Care Time [id number] RAFAL SINHA MD May 20, 2020 09:57
--- NOTE | 2020-05-20 10:32 | NUR ---
SS following up with discharge planning. SS reviewed pt chart and discussed with pt RN. Pt is currently on the BIPAP at 80%. COVID19 positive. Pt requesting Healthcare DPOA this morning. SS and pt's RN met with pt and pt requesting her daughter, Ximena Walker, , to be Healthcare DPOA. Form completed and notarized. Pt accepted at [facility], ; fax [phone], pending insurance authorization from [facility]. SS phoned and faxed clinical updates to [facility]. SS will continue to follow for discharge planning.
[2020-05-20] MEDS ORDERED: HEPARIN for IV BOLUS 10,000 UNIT/10 ML VIAL. ONE (10:52)
[2020-05-20] MEDS ORDERED: LIDOCAINE WITH 8.4% SOD BICARB 3 ML DISP.SYRIN. ONE (10:52)
[2020-05-20] MEDS ORDERED: LIDOCAINE WITH 8.4% SOD BICARB 3 ML DISP.SYRIN. INJ ONE (11:00)
--- NOTE | 2020-05-20 11:35 | PDOC ---
Renal-Progress Notes Subjective Notes Notes STILL ON BIPAP History of Present Illness Hx of present illness NOT GETTING ANY BETTER Vitals Vitals Vital Signs Date Time Temp Pulse Resp B/P (MAP) Pulse Ox O2 Delivery O2 Flow Rate FiO2 05/20/20 10:00 98.4 75 18 128/74 (92) 93 BiPAP/CPAP 98.4 05/19/20 20:00 Weight Weight [ ] I.O. Intake and Output Intake and Output 05/20/20 07:00 Intake Total 535 ml Output Total 450 ml Balance 85 ml IV Total 535 ml Output Urine Total 450 ml Labs Labs Laboratory Tests Test 05/19/20 16:00 05/19/20 17:16 05/19/20 20:39 O2 Saturation 97 % (92-99) Arterial Blood pH 7.30 (7.35-7.45) Arterial Blood pCO2 at Patient Temp 53 mmHg (35-46) Arterial Blood pO2 at Patient Temp 92 mmHg (75-108) Arterial Blood HCO3 26 mmol/L (21-28) Arterial Blood Base Excess -2 mmol/L (-3-3) FiO2 100% Glucose (Fingerstick) 132 mg/dL (70-99) 121 mg/dL (70-99) Micro Micro Microbiology 04/26/20 Blood Culture - Final, Complete NO GROWTH AFTER 5 DAYS Review of Systems Constitutional: yes: alert, oriented Ears/Nose/Throat: Yes: no symptom reported Eyes: Yes: no symptom reported Pulmonary: Yes dyspnea Cardiovascular: Yes no symptom reported Gastrointestional: Yes: constipation Genitourinary: Yes: no symptom reported Musculoskeletal: Yes: muscle stiffness Skin: Yes no symptom reported Psychiatric/Neurological: Yes: no symptom reported Endocrine: Yes: no symptom reported Physical Exam General Appearance: no apparent distress Skin: warm Respiratory: decreased breath sounds Heart: S1S2 Abdomen: soft Genitourinary: bladder flat Extremities: pulses present Neurology: alert, oriented Musculoskeletal: low back pain, Osteoarthritis Assessment Assessment IMP ESRD ACUTE RESP FAILURE ANEMIA COVID 19 DM II MORBID OBESITY FATIGUE PLAN HOLD PD FOR NOW ID EVAL AND TX K REPLACEMENT NEEDED CONT BIPAP NEEDED ON VAPOTHERM WILL PLAN FOR HD MAY GET BETTER UF ALSO LIMIT LOWER LOBE ATELECTASIS DUE TO PD FLUID PT ALREADY VERY OBESE WILL HAVE IR PLACE TEMP LINE TODAY HD TODAY UF TOLERATED PT AGREEABLE D/W CARTER MCDANIELS MD May 20, 2020 11:35
[2020-05-20 12:24] LABS: BASE EXCESS ABG 1 mmol/L (-3-3); FIO2 ABG 100; HCO3 ABG 27 mmol/L (21-28); PCO2 ABG 49 mmHg (35-46); PO2 ABG 104 mmHg (75-108); SAT O2 ABG 97 % (92-99)
--- NOTE | 2020-05-20 12:26 | RAD ---
XR CHEST 1V 11:26 AM CLINICAL INDICATIONS: Reason: TEMP HD CATHETER PLACEMENT COMPARISON: Same day performed at 5:30 AM Findings: Right IJ hemodialysis catheter is in place and the tip is seen within the right atrium. No pneumothorax is evident. Diffuse bilateral lung infiltrates or pulmonary edema are again evident and are unchanged. No significant pleural effusion is seen. The heart size is prominent but stable. Media stinum is unchanged. IMPRESSION: Placement of dialysis catheter without pneumothorax. Unchanged diffuse bilateral lung infiltrates or pulmonary edema. Electronically signed by: Michelet Fletcher MD (05/20/2020 12:23 PM) [id number]
[2020-05-20] MEDS ORDERED: IV NORMAL SALINE 1000ML BAG 1,000 ML IV PRN ×2 (13:00)
[2020-05-20] MEDS ORDERED: ALBUMIN HUMAN 25% 200 ML IV PRN (13:00)
[2020-05-20] MEDS ORDERED: DIALYSIS PATIENT. MC PRN (13:00)
[2020-05-20] MEDS: SIMETHICONE 80 MG TAB.CHEW PO PRN ×2 (14:19→20:41)
--- NOTE | 2020-05-20 15:46 | RAD ---
Procedure: Temporary hemodialysis catheter placement at the bedside. Clinical Indication: Adult female requiring central venous access for hemodialysis Sedation: Local anesthesia only Antibiotics: None Fluoro Time: Not applicable Contrast: None Sterility: All elements of maximal sterile barrier technique including the use of a cap, mask, sterile gown, sterile gloves, large sterile sheet, appropriate hand hygiene, and 2% chlorhexidine for cutaneous antisepsis (or acceptable alternative antiseptic per current guidelines) were followed for this procedure. Consent: The procedure was explained in its entirety to the patient or the patients designated fulfillment representative by a member of the treatment team, including a discussion of the risks, benefits and commonly accepted alternatives to the procedure, as well as the expected consequences of no therapy whatsoever. Discussion of the risks included, but was not limited to, those that are most frequent and those that are rare but possibly severe or life-threatening, as well as the possibility of unforeseen complications. Technique and Findings: Following informed consent, the patient was prepped and draped in the usual sterile fashion. Ultrasound interrogation of the right neck revealed patency and compressibility of the right internal jugular vein. A 21-gauge micropuncture needle was used to gain access to this vein after 1% Lidocaine was used to achieve local anesthesia. A hardcopy ultrasound image was recorded. The needle was exchanged over a wire for serial dilators followed by a 20 cm Schon temporary hemodialysis catheter which was deployed in the expected location of the mid right atrium. The catheter flow rates were assessed manually and found to be excellent. The catheter was then flushed, packed with Heparin, capped, and sutured to the skin. Chest x-ray was then obtained to assess line position. Complications: No immediate Impression: 1. Ultrasound guided placement of a temporary hemodialysis catheter which exhibits excellent manual flow rates as described.
[2020-05-20] MEDS: GABAPENTIN 300 MG CAPSULE. PO SCH (20:31)
[2020-05-20 20:36] LABS: AMYLASE 49 U/L (25-115); LIPASE 45 U/L (73-393)
[2020-05-21] VITALS (15 sets, daily range): BP systolic 107–176; BP diastolic 59–99
[2020-05-21] MEDS: DEXMEDETOMIDINE 400 MCG in IV NORMAL SALINE 100ML 96 ML IV PRN ×4 (01:11→10:38)
[2020-05-21] MEDS ORDERED: ALBUMIN HUMAN 25% 200 ML IV PRN (07:45)
[2020-05-21] MEDS ORDERED: DIALYSIS PATIENT. MC PRN ×2 (07:45)
[2020-05-21] MEDS ORDERED: IV NORMAL SALINE 1000ML BAG 1,000 ML IV PRN ×2 (07:45)
[2020-05-21] MEDS: LOPERAMIDE 2 MG CAPSULE PO PRN ×2 (07:58→15:36)
[2020-05-21] MEDS: ZINC SULFATE 220 MG CAPSULE. PO SCH (07:58)
[2020-05-21] MEDS: SEVELAMER CARBONATE 800 MG TABLET. PO SCH ×3 (07:58→18:15)
[2020-05-21] MEDS: LACTOBACILLUS RHAMNOSUS GG 1 CAPSULE. PO SCH ×2 (07:58→20:40)
[2020-05-21] MEDS: PANTOPRAZOLE 40 MG TABLET.DR. PO SCH (07:58)
[2020-05-21] MEDS: NYSTATIN TOPICAL POWDER 15GM BOTTLE. TP SCH ×2 (07:58→20:41)
[2020-05-21] MEDS: MULTIVITAMIN with MINERAL TABLET. PO SCH (07:58)
[2020-05-21] MEDS: LINAGLIPTIN 5 MG TABLET PO SCH (07:58)
[2020-05-21] MEDS: DULoxetine HCL 30 MG CAPSULE.DR PO SCH ×2 (07:59→20:40)
[2020-05-21] MEDS: HEPARIN for SUB-Q USE 5,000 UNIT/ML VIAL. SQ SCH ×2 (07:59→20:40)
[2020-05-21] MEDS: CARVEDILOL 12.5 MG TABLET. PO SCH ×2 (08:00→18:16)
[2020-05-21] MEDS: POTASSIUM CHLORIDE 20 MEQ TABLET.ER. PO SCH (08:01)
[2020-05-21] MEDS: TORSEMIDE 20 MG TABLET. PO SCH ×2 (08:01→15:36)
[2020-05-21] MEDS: FOLIC/VIT B COMP W-C (RENAL) TABLET. PO SCH (08:01)
[2020-05-21] MEDS: INSULIN GLARGINE SYRINGE. SQ SCH (09:00)
[2020-05-21 09:05] LABS: HEMATOCRIT 25.3 % (36.0-47.0); HEMOGLOBIN 8.5 g/dL (12.0-15.5); RED BLOOD COUNT 2.66 x10^6/uL (3.50-5.40); RED CELL DISTRIBUTION WIDTH 16.8 % (11.5-14.5); WHITE BLOOD COUNT 5.3 x10^3/uL (4.0-11.0)
[2020-05-21 09:24] LABS: CALCIUM 8.2 mg/dL (8.5-10.1); CREATININE 2.6 mg/dL (0.6-1.0); POTASSIUM 4.1 mmol/L (3.5-5.1)
[2020-05-21 09:29] LABS: ALBUMIN 2.2 g/dL (3.4-5.0); MAGNESIUM 1.9 mg/dL (1.8-2.4); PHOSPHORUS 2.9 mg/dL (2.6-4.7); TOTAL PROTEIN 5.9 g/dL (6.4-8.2)
[2020-05-21 09:30] LABS: ALBUMIN/GLOBULIN RATIO 0.6 (1.0-1.7); TOTAL BILIRUBIN 0.5 mg/dL (0.2-1.0)
--- NOTE | 2020-05-21 11:25 | PDOC ---
PULMONARY PROGRESS NOTES DATE: 05/21/20 TIME: 11:12 Subjective Now on BIPAP 80% Afebrile Increased respiratory Distress Vitals Vital Signs Date Time Temp Pulse Resp B/P (MAP) Pulse Ox O2 Delivery O2 Flow Rate FiO2 05/21/20 10:00 79 22 119/60 (79) 93 BiPAP/CPAP 05/21/20 07:00 97.9 97.9 05/20/20 23:59 80.0 Comments Patient is seen during , visual exam performed now on BIPAP No accessory muscle use no distress No obvious rash or edema General: Confused, Mild Distress Extremities: Other (trace BLE ) Labs Laboratory Tests Test 05/19/20 11:31 05/19/20 16:00 05/19/20 17:16 05/19/20 20:39 Glucose (Fingerstick) 122 mg/dL (70-99) 132 mg/dL (70-99) 121 mg/dL (70-99) O2 Saturation 97 % (92-99) Arterial Blood pH 7.30 (7.35-7.45) Arterial Blood pCO2 at Patient Temp 53 mmHg (35-46) Arterial Blood pO2 at Patient Temp 92 mmHg (75-108) Arterial Blood HCO3 26 mmol/L (21-28) Arterial Blood Base Excess -2 mmol/L (-3-3) FiO2 100% Test 05/20/20 09:00 05/20/20 12:05 05/20/20 19:41 05/21/20 08:50 O2 Saturation 97 % (92-99) Arterial Blood pH 7.36 (7.35-7.45) Arterial Blood pCO2 at Patient Temp 49 mmHg (35-46) Arterial Blood pO2 at Patient Temp 104 mmHg (75-108) Arterial Blood HCO3 27 mmol/L (21-28) Arterial Blood Base Excess 1 mmol/L (-3-3) FiO2 100 Glucose (Fingerstick) 102 mg/dL (70-99) Amylase Level 49 U/L (25-115) Lipase 45 U/L (73-393) White Blood Count 5.3 x10^3/uL (4.0-11.0) Red Blood Count 2.66 x10^6/uL (3.50-5.40) Hemoglobin 8.5 g/dL (12.0-15.5) Hematocrit 25.3 % (36.0-47.0) Mean Corpuscular Volume 95 fL (79-100) Mean Corpuscular Hemoglobin 32 pg (25-35) Mean Corpuscular Hemoglobin Concent 34 g/dL (31-37) Red Cell Distribution Width 16.8 % (11.5-14.5) Platelet Count 174 x10^3/uL (140-400) Sodium Level 136 mmol/L (136-145) Potassium Level 4.1 mmol/L (3.5-5.1) Chloride Level 100 mmol/L (98-107) Carbon Dioxide Level 29 mmol/L (21-32) Anion Gap 7 (6-14) Blood Urea Nitrogen 31 mg/dL (7-20) Creatinine 2.6 mg/dL (0.6-1.0) Estimated GFR (Cockcroft-Gault) 19.0 BUN/Creatinine Ratio 12 (6-20) Glucose Level 111 mg/dL (70-99) Calcium Level 8.2 mg/dL (8.5-10.1) Phosphorus Level 2.9 mg/dL (2.6-4.7) Magnesium Level 1.9 mg/dL (1.8-2.4) Total Bilirubin 0.5 mg/dL (0.2-1.0) Aspartate Amino Transf (AST/SGOT) 26 U/L (15-37) Alanine Aminotransferase (ALT/SGPT) 27 U/L (14-59) Alkaline Phosphatase 97 U/L (46-116) Total Protein 5.9 g/dL (6.4-8.2) Albumin 2.2 g/dL (3.4-5.0) Albumin/Globulin Ratio 0.6 (1.0-1.7) Laboratory Tests Test 05/20/20 12:05 05/20/20 19:41 05/21/20 08:50 Glucose (Fingerstick) 102 mg/dL (70-99) Amylase Level 49 U/L (25-115) Lipase 45 U/L (73-393) White Blood Count 5.3 x10^3/uL (4.0-11.0) Red Blood Count 2.66 x10^6/uL (3.50-5.40) Hemoglobin 8.5 g/dL (12.0-15.5) Hematocrit 25.3 % (36.0-47.0) Mean Corpuscular Volume 95 fL (79-100) Mean Corpuscular Hemoglobin 32 pg (25-35) Mean Corpuscular Hemoglobin Concent 34 g/dL (31-37) Red Cell Distribution Width 16.8 % (11.5-14.5) Platelet Count 174 x10^3/uL (140-400) Sodium Level 136 mmol/L (136-145) Potassium Level 4.1 mmol/L (3.5-5.1) Chloride Level 100 mmol/L (98-107) Carbon Dioxide Level 29 mmol/L (21-32) Anion Gap 7 (6-14) Blood Urea Nitrogen 31 mg/dL (7-20) Creatinine 2.6 mg/dL (0.6-1.0) Estimated GFR (Cockcroft-Gault) 19.0 BUN/Creatinine Ratio 12 (6-20) Glucose Level 111 mg/dL (70-99) Calcium Level 8.2 mg/dL (8.5-10.1) Phosphorus Level 2.9 mg/dL (2.6-4.7) Magnesium Level 1.9 mg/dL (1.8-2.4) Total Bilirubin 0.5 mg/dL (0.2-1.0) Aspartate Amino Transf (AST/SGOT) 26 U/L (15-37) Alanine Aminotransferase (ALT/SGPT) 27 U/L (14-59) Alkaline Phosphatase 97 U/L (46-116) Total Protein 5.9 g/dL (6.4-8.2) Albumin 2.2 g/dL (3.4-5.0) Albumin/Globulin Ratio 0.6 (1.0-1.7) Medications Active Scripts Medications Dose Route/Sig Max Daily Dose Days Date Category Dose Instructions Gabapentin 600 Mg Tablet 600 Mg PO HS 04/27/20 Reported Gabapentin (Gabapentin) 300 Mg Capsule 300 Mg PO DAILY 04/27/20 Reported Lantus Solostar (Insulin Glargine,Hum.rec.anlog) 100 Unit/1 Ml Insuln.pen 75 Unit SQ BID 09/19/19 Reported Januvia (Sitagliptin Phosphate) 25 Mg Tablet 25 Mg PO DAILY 09/19/19 Reported Novolog (Insulin Aspart) 100 Unit/1 Ml Cartridge 0 SQ TIDAC 01/26/19 Reported Sliding scale; patient has printout (at home) of scale. Unknown at this time. Singulair Tablet (Montelukast Sodium) 10 Mg Tablet 10 Mg PO HS 11/24/18 Reported Atorvastatin Calcium 40 Mg Tablet 1 Tab PO QHS 11/24/18 Reported Torsemide 20 Mg Tablet 2 Tab PO BID 11/24/18 Reported Cymbalta (Duloxetine Hcl) 30 Mg Capsule.dr Pressley Cap PO BID 11/24/18 Reported Daily Jalen (Multivitamin) 1 Each Tablet 1 Each PO DAILY 11/24/18 Reported Comments CXR 05/20 IMPRESSION: Slightly improved diffuse bilateral opacities. CTA chest IMPRESSION: 1. No evidence of pulmonary thromboembolic disease. 2. Multifocal bilateral groundglass opacities and consolidations, consistent with patient's history of infection. 3. Dilated pulmonary trunk, which can be seen with pulmonary hypertension. Impression . IMPRESSION: 1. Acute hypoxemic respiratory failure secondary to COVID-19 viral pneumonia./ ALI/ARDS-- worsening hypoxia 2. COVID-[address] angiogram, no evidence of pulmonary embolism. 4. Chronic kidney disease, previously peritoneal dialysis, now HD 5. Morbid obesity. 6. Obstructive sleep apnea. 7. Hyperlipidemia. 8. Hypertension. Plan . PLAN: Continue supplemental oxygen to keep oxygen saturations greater than 92%, Continue BIPAP 80% Follow CXR/ABG-- Pt. has completed full course of steroids Remains off ABX Pt. has completed Full course of remdesivir Follow nephrology recommendations now on HD DVT/GI prophylaxis Discussed with RN and RT and Dr. Waggoner and Daughter Ximena-- PT. is Now DNR/DNI, daughter to visit today Poor prognosis, no clinical improvement Critical Care Time 0900-0930AM RAFAL SINHA MD May 21, 2020 11:25
--- NOTE | 2020-05-21 11:42 | PDOC ---
Renal-Progress Notes Subjective Notes Notes ON BIPAP History of Present Illness Hx of present illness NOT ANY BETTER, WORKING HARD TO BREATH Vitals Vitals Vital Signs Date Time Temp Pulse Resp B/P (MAP) Pulse Ox O2 Delivery O2 Flow Rate FiO2 05/21/20 10:00 79 22 119/60 (79) 93 BiPAP/CPAP 05/21/20 07:00 97.9 97.9 05/20/20 23:59 80.0 Weight Weight [ ] I.O. Intake and Output Intake and Output 05/21/20 07:00 Intake Total 1517.4 ml Output Total 845 ml Balance 672.4 ml Intake Oral 780 ml IV Total 556.4 ml Blood Product IV Normal Saline Flush 181 ml Output Urine Total 845 ml # Voids 4 Labs Labs Laboratory Tests Test 05/20/20 12:05 05/20/20 19:41 05/21/20 08:50 Glucose (Fingerstick) 102 mg/dL (70-99) Amylase Level 49 U/L (25-115) Lipase 45 U/L (73-393) White Blood Count 5.3 x10^3/uL (4.0-11.0) Red Blood Count 2.66 x10^6/uL (3.50-5.40) Hemoglobin 8.5 g/dL (12.0-15.5) Hematocrit 25.3 % (36.0-47.0) Mean Corpuscular Volume 95 fL (79-100) Mean Corpuscular Hemoglobin 32 pg (25-35) Mean Corpuscular Hemoglobin Concent 34 g/dL (31-37) Red Cell Distribution Width 16.8 % (11.5-14.5) Platelet Count 174 x10^3/uL (140-400) Sodium Level 136 mmol/L (136-145) Potassium Level 4.1 mmol/L (3.5-5.1) Chloride Level 100 mmol/L (98-107) Carbon Dioxide Level 29 mmol/L (21-32) Anion Gap 7 (6-14) Blood Urea Nitrogen 31 mg/dL (7-20) Creatinine 2.6 mg/dL (0.6-1.0) Estimated GFR (Cockcroft-Gault) 19.0 BUN/Creatinine Ratio 12 (6-20) Glucose Level 111 mg/dL (70-99) Calcium Level 8.2 mg/dL (8.5-10.1) Phosphorus Level 2.9 mg/dL (2.6-4.7) Magnesium Level 1.9 mg/dL (1.8-2.4) Total Bilirubin 0.5 mg/dL (0.2-1.0) Aspartate Amino Transf (AST/SGOT) 26 U/L (15-37) Alanine Aminotransferase (ALT/SGPT) 27 U/L (14-59) Alkaline Phosphatase 97 U/L (46-116) Total Protein 5.9 g/dL (6.4-8.2) Albumin 2.2 g/dL (3.4-5.0) Albumin/Globulin Ratio 0.6 (1.0-1.7) Micro Micro Microbiology 04/26/20 Blood Culture - Final, Complete NO GROWTH AFTER 5 DAYS Review of Systems Constitutional: yes: alert Ears/Nose/Throat: Yes: no symptom reported Eyes: Yes: no symptom reported Pulmonary: Yes dyspnea Cardiovascular: Yes no symptom reported Genitourinary: Yes: no symptom reported Skin: Yes no symptom reported Psychiatric/Neurological: Yes: no symptom reported Endocrine: Yes: no symptom reported Physical Exam General Appearance: no apparent distress Skin: warm Respiratory: decreased breath sounds Heart: S1S2 Abdomen: soft Genitourinary: bladder flat Extremities: pulses present Neurology: alert, oriented Musculoskeletal: low back pain, Osteoarthritis Assessment Assessment IMP ESRD ACUTE RESP FAILURE ANEMIA COVID 19 DM II MORBID OBESITY FATIGUE PLAN CONT TO HOLD PD FOR NOW ID EVAL AND TX CONT BIPAP NEEDED HD AGAIN TODAY SPA GIVEN UF TOLERATED PLAN FOR HD DAILY FOR NOW PT IS NOW A DNR AND DNI WILL FOLLOW CARTER PEREZ MD May 21, 2020 11:42
[2020-05-21 12:17] LABS: BASE EXCESS ABG 2 mmol/L (-3-3); HCO3 ABG 27 mmol/L (21-28); PCO2 ABG 44 mmHg (35-46); PO2 ABG 72 mmHg (75-108); SAT O2 ABG 94 % (92-99)
--- NOTE | 2020-05-21 14:58 | NUR ---
SS following up with discharge planning. SS reviewed pt chart and discussed with pt RN. Pt is currently on the BIPAP at 80%. COVID19 positive. DNR/DNI now. Pt accepted at [facility], ; fax [phone], pending insurance authorization. SS phoned and faxed clinical updates to [facility]. SS will continue to follow for discharge planning.
--- NOTE | 2020-05-21 15:45 | NUR ---
patient moved to new bariatric bed to go to room 258. All personal belongings taken up with patient.
[2020-05-21] MEDS: DICYCLOMINE HCL 10 MG CAPSULE PO PRN (20:40)
[2020-05-21] MEDS: GABAPENTIN 300 MG CAPSULE. PO SCH (20:40)
[2020-05-21] MEDS: TEMAZEPAM 15 MG CAPSULE PO PRN (21:23)
[2020-05-21] MEDS: CYCLOBENZAPRINE 10 MG TABLET. PO PRN (21:23)
[2020-05-22 02:00] VITALS: BP 160/68
[2020-05-22 07:00] VITALS: BP 143/61
[2020-05-22] MEDS: LOPERAMIDE 2 MG CAPSULE PO PRN (07:58)
[2020-05-22] MEDS: LACTOBACILLUS RHAMNOSUS GG 1 CAPSULE. PO SCH ×2 (07:59→20:03)
[2020-05-22] MEDS: ACETAMINOPHEN 325 MG TABLET. PO PRN (07:59)
[2020-05-22] MEDS: DULoxetine HCL 30 MG CAPSULE.DR PO SCH ×2 (07:59→20:03)
[2020-05-22] MEDS: PANTOPRAZOLE 40 MG TABLET.DR. PO SCH (07:59)
[2020-05-22] MEDS ORDERED: IV NORMAL SALINE 1000ML BAG 1,000 ML IV PRN ×2 (08:00)
[2020-05-22] MEDS ORDERED: 0.9 % SODIUM CHLORIDE 10 ML DISP.SYRIN. IV PRN ×2 (08:00)
[2020-05-22] MEDS: SEVELAMER CARBONATE 800 MG TABLET. PO SCH ×3 (08:00→17:53)
[2020-05-22] MEDS: POTASSIUM CHLORIDE 20 MEQ TABLET.ER. PO SCH ×2 (08:00→17:54)
[2020-05-22] MEDS ORDERED: ALBUMIN HUMAN 25% 200 ML IV PRN (08:00)
[2020-05-22] MEDS ORDERED: DIALYSIS PATIENT. MC PRN ×2 (08:00)
[2020-05-22] MEDS: CARVEDILOL 12.5 MG TABLET. PO SCH ×2 (08:00→17:53)
[2020-05-22 08:29] LABS: CALCIUM 8.8 mg/dL (8.5-10.1); CREATININE 2.5 mg/dL (0.6-1.0); GFR 19.9; POTASSIUM 3.9 mmol/L (3.5-5.1)
[2020-05-22] MEDS: TORSEMIDE 20 MG TABLET. PO SCH ×2 (09:00→17:53)
[2020-05-22] MEDS: INSULIN GLARGINE SYRINGE. SQ SCH (09:00)
--- NOTE | 2020-05-22 10:53 | PDOC ---
PULMONARY PROGRESS NOTES DATE: 05/22/20 TIME: 10:52 Subjective off BIPAP 80% Afebrile Vitals Vital Signs Date Time Temp Pulse Resp B/P (MAP) Pulse Ox O2 Delivery O2 Flow Rate FiO2 05/22/20 08:26 99 BiPAP/CPAP 05/22/20 07:00 98.3 85 20 143/61 (88) 98.3 Comments Patient is seen during pandemic, visual exam performed now off BIPAP No accessory muscle use no distress No obvious rash or edema General: Confused, Mild Distress Extremities: Other (trace BLE ) Labs Laboratory Tests Test 05/20/20 12:05 05/20/20 19:41 05/21/20 08:50 05/21/20 09:04 Glucose (Fingerstick) 102 mg/dL (70-99) Amylase Level 49 U/L (25-115) Lipase 45 U/L (73-393) White Blood Count 5.3 x10^3/uL (4.0-11.0) Red Blood Count 2.66 x10^6/uL (3.50-5.40) Hemoglobin 8.5 g/dL (12.0-15.5) Hematocrit 25.3 % (36.0-47.0) Mean Corpuscular Volume 95 fL (79-100) Mean Corpuscular Hemoglobin 32 pg (25-35) Mean Corpuscular Hemoglobin Concent 34 g/dL (31-37) Red Cell Distribution Width 16.8 % (11.5-14.5) Platelet Count 174 x10^3/uL (140-400) Sodium Level 136 mmol/L (136-145) Potassium Level 4.1 mmol/L (3.5-5.1) Chloride Level 100 mmol/L (98-107) Carbon Dioxide Level 29 mmol/L (21-32) Anion Gap 7 (6-14) Blood Urea Nitrogen 31 mg/dL (7-20) Creatinine 2.6 mg/dL (0.6-1.0) Estimated GFR (Cockcroft-Gault) 19.0 BUN/Creatinine Ratio 12 (6-20) Glucose Level 111 mg/dL (70-99) Calcium Level 8.2 mg/dL (8.5-10.1) Phosphorus Level 2.9 mg/dL (2.6-4.7) Magnesium Level 1.9 mg/dL (1.8-2.4) Total Bilirubin 0.5 mg/dL (0.2-1.0) Aspartate Amino Transf (AST/SGOT) 26 U/L (15-37) Alanine Aminotransferase (ALT/SGPT) 27 U/L (14-59) Alkaline Phosphatase 97 U/L (46-116) Total Protein 5.9 g/dL (6.4-8.2) Albumin 2.2 g/dL (3.4-5.0) Albumin/Globulin Ratio 0.6 (1.0-1.7) O2 Saturation 94 % (92-99) Arterial Blood pH 7.40 (7.35-7.45) Arterial Blood pCO2 at Patient Temp 44 mmHg (35-46) Arterial Blood pO2 at Patient Temp 72 mmHg (75-108) Arterial Blood HCO3 27 mmol/L (21-28) Arterial Blood Base Excess 2 mmol/L (-3-3) FiO2 80% bipap Test 05/21/20 15:08 05/21/20 20:22 05/22/20 07:10 05/22/20 07:15 Glucose (Fingerstick) 88 mg/dL (70-99) 93 mg/dL (70-99) 85 mg/dL (70-99) Sodium Level 139 mmol/L (136-145) Potassium Level 3.9 mmol/L (3.5-5.1) Chloride Level 100 mmol/L (98-107) Carbon Dioxide Level 26 mmol/L (21-32) Anion Gap 13 (6-14) Blood Urea Nitrogen 20 mg/dL (7-20) Creatinine 2.5 mg/dL (0.6-1.0) Estimated GFR (Cockcroft-Gault) 19.9 Glucose Level 79 mg/dL (70-99) Calcium Level 8.8 mg/dL (8.5-10.1) Laboratory Tests Test 05/21/20 15:08 05/21/20 20:22 05/22/20 07:10 05/22/20 07:15 Glucose (Fingerstick) 88 mg/dL (70-99) 93 mg/dL (70-99) 85 mg/dL (70-99) Sodium Level 139 mmol/L (136-145) Potassium Level 3.9 mmol/L (3.5-5.1) Chloride Level 100 mmol/L (98-107) Carbon Dioxide Level 26 mmol/L (21-32) Anion Gap 13 (6-14) Blood Urea Nitrogen 20 mg/dL (7-20) Creatinine 2.5 mg/dL (0.6-1.0) Estimated GFR (Cockcroft-Gault) 19.9 Glucose Level 79 mg/dL (70-99) Calcium Level 8.8 mg/dL (8.5-10.1) Medications Active Scripts Medications Dose Route/Sig Max Daily Dose Days Date Category Dose Instructions Gabapentin 600 Mg Tablet 600 Mg PO HS 04/27/20 Reported Gabapentin (Gabapentin) 300 Mg Capsule 300 Mg PO DAILY 04/27/20 Reported Lantus Solostar (Insulin Glargine,Hum.rec.anlog) 100 Unit/1 Ml Insuln.pen 75 Unit SQ BID 09/19/19 Reported Januvia (Sitagliptin Phosphate) 25 Mg Tablet 25 Mg PO DAILY 09/19/19 Reported Novolog (Insulin Aspart) 100 Unit/1 Ml Cartridge 0 SQ TIDAC 01/26/19 Reported Sliding scale; patient has printout (at home) of scale. Unknown at this time. Singulair Tablet (Montelukast Sodium) 10 Mg Tablet 10 Mg PO HS 11/24/18 Reported Atorvastatin Calcium 40 Mg Tablet 1 Tab PO QHS 11/24/18 Reported Torsemide 20 Mg Tablet 2 Tab PO BID 11/24/18 Reported Cymbalta (Duloxetine Hcl) 30 Mg Capsule.dr 1 Cap PO BID 11/24/18 Reported Daily Jalen (Multivitamin) 1 Each Tablet 1 Each PO DAILY 11/24/18 Reported Comments CXR 05/20 IMPRESSION: Slightly improved diffuse bilateral opacities. CTA chest IMPRESSION: 1. No evidence of pulmonary thromboembolic disease. 2. Multifocal bilateral groundglass opacities and consolidations, consistent with patient's history of infection. 3. Dilated pulmonary trunk, which can be seen with pulmonary hypertension. Impression . IMPRESSION: 1. Acute hypoxemic respiratory failure secondary to COVID-19 viral pneumonia./ ALI/ARDS-- worsening hypoxia 2. COVID-[address] angiogram, no evidence of pulmonary embolism. 4. Chronic kidney disease, previously peritoneal dialysis, now HD 5. Morbid obesity. 6. Obstructive sleep apnea. 7. Hyperlipidemia. 8. Hypertension. Plan . PLAN: Continue supplemental oxygen to keep oxygen saturations greater than 92%, Continue prn BIPAP 80% Follow CXR/ABG-- Pt. has completed full course of steroids Remains off ABX Pt. has completed Full course of remdesivir Follow nephrology recommendations now on HD DVT/GI prophylaxis Discussed with RN and RT and Dr. Waggoner and Daughter Ximena-- PT. is Now DNR/DNI, Poor prognosis, no clinical improvement RAFAL SINHA MD May 22, 2020 10:53
[2020-05-22 11:00] VITALS: BP 165/81
--- NOTE | 2020-05-22 14:30 | NUR ---
SS following up with discharge planning. SS reviewed pt chart and discussed with pt RN. Pt is currently on non-rebreather mask at 15 liters. COVID19 positive. Hemodialysis today. Increased confusion. DNR/DNI. [facility], ; fax [phone], pending insurance authorization. SS will continue to follow for discharge planning.
[2020-05-22 15:00] VITALS: BP 118/59
--- NOTE | 2020-05-22 17:13 | PDOC ---
Renal-Progress Notes Subjective Notes Notes CONFUSION History of Present Illness Hx of present illness NO ACUTE CHANGES Vitals Vitals Vital Signs Date Time Temp Pulse Resp B/P (MAP) Pulse Ox O2 Delivery O2 Flow Rate FiO2 05/22/20 15:00 97.3 106 20 118/59 (78) 97 BiPAP/CPAP 97.3 05/22/20 12:00 15.0 Weight Weight [ ] I.O. Intake and Output Intake and Output 05/22/20 07:00 Intake Total 920 ml Output Total 490 ml Balance 430 ml Intake Oral 920 ml Output Urine Total 490 ml # Bowel Movements 3 Labs Labs Laboratory Tests Test 05/21/20 20:22 05/22/20 07:10 05/22/20 07:15 Glucose (Fingerstick) 93 mg/dL (70-99) 85 mg/dL (70-99) Sodium Level 139 mmol/L (136-145) Potassium Level 3.9 mmol/L (3.5-5.1) Chloride Level 100 mmol/L (98-107) Carbon Dioxide Level 26 mmol/L (21-32) Anion Gap 13 (6-14) Blood Urea Nitrogen 20 mg/dL (7-20) Creatinine 2.5 mg/dL (0.6-1.0) Estimated GFR (Cockcroft-Gault) 19.9 Glucose Level 79 mg/dL (70-99) Calcium Level 8.8 mg/dL (8.5-10.1) Micro Micro Microbiology 04/26/20 Blood Culture - Final, Complete NO GROWTH AFTER 5 DAYS Review of Systems Constitutional: yes: weakness Ears/Nose/Throat: Yes: no symptom reported Eyes: Yes: no symptom reported Pulmonary: Yes dyspnea Cardiovascular: Yes no symptom reported Genitourinary: Yes: no symptom reported Skin: Yes no symptom reported Psychiatric/Neurological: Yes: no symptom reported Endocrine: Yes: no symptom reported Physical Exam General Appearance: no apparent distress Skin: warm Respiratory: decreased breath sounds Heart: S1S2 Abdomen: soft Genitourinary: bladder flat Extremities: pulses present Neurology: alert, oriented Musculoskeletal: low back pain, Osteoarthritis Assessment Assessment IMP ESRD ACUTE RESP FAILURE ANEMIA COVID 19 DM II MORBID OBESITY FATIGUE ENCEPHALOPATHY PLAN CONT TO HOLD PD FOR NOW ID EVAL AND TX CONT BIPAP NEEDED HD AGAIN TODAY SPA GIVEN UF TOLERATED PLAN FOR HD DAILY FOR NOW ALSO START PROCALAMINE PT IS NOW A DNR AND DNI WILL FOLLOW CARTER PEREZ MD May 22, 2020 17:13
[2020-05-22] MEDS: FOLIC/VIT B COMP W-C (RENAL) TABLET. PO SCH (17:52)
[2020-05-22] MEDS: ZINC SULFATE 220 MG CAPSULE. PO SCH (17:52)
[2020-05-22] MEDS: LINAGLIPTIN 5 MG TABLET PO SCH (17:53)
[2020-05-22] MEDS: NYSTATIN TOPICAL POWDER 15GM BOTTLE. TP SCH ×2 (17:54→20:03)
[2020-05-22] MEDS: MULTIVITAMIN with MINERAL TABLET. PO SCH (17:54)
[2020-05-22] MEDS: HEPARIN for SUB-Q USE 5,000 UNIT/ML VIAL. SQ SCH ×2 (17:57→20:03)
[2020-05-22 19:55] VITALS: BP 192/74
[2020-05-22] MEDS: GABAPENTIN 300 MG CAPSULE. PO SCH (20:03)
--- NOTE | 2020-05-22 20:04 | NUR ---
Did not give 2100 dose of Heparin. Morning dose of Heparin was given late in the afternoon as patient was in dialysis.
[2020-05-22] MEDS: CYCLOBENZAPRINE 10 MG TABLET. PO PRN (20:16)
[2020-05-22] MEDS: TEMAZEPAM 15 MG CAPSULE PO PRN (20:16)
[2020-05-22 23:00] VITALS: BP 125/60
[2020-05-23 03:50] VITALS: BP 142/63
[2020-05-23 07:00] VITALS: BP 117/52
[2020-05-23] MEDS: TORSEMIDE 20 MG TABLET. PO SCH ×2 (07:42→16:14)
[2020-05-23] MEDS: MULTIVITAMIN with MINERAL TABLET. PO SCH (07:42)
[2020-05-23] MEDS: LINAGLIPTIN 5 MG TABLET PO SCH (07:42)
[2020-05-23] MEDS: LACTOBACILLUS RHAMNOSUS GG 1 CAPSULE. PO SCH ×2 (07:42→20:49)
[2020-05-23] MEDS: FOLIC/VIT B COMP W-C (RENAL) TABLET. PO SCH (07:42)
[2020-05-23] MEDS: PANTOPRAZOLE 40 MG TABLET.DR. PO SCH (07:42)
[2020-05-23] MEDS: SEVELAMER CARBONATE 800 MG TABLET. PO SCH ×3 (07:43→16:29)
[2020-05-23] MEDS: POTASSIUM CHLORIDE 20 MEQ TABLET.ER. PO SCH (07:43)
[2020-05-23] MEDS: ZINC SULFATE 220 MG CAPSULE. PO SCH (07:43)
[2020-05-23] MEDS: DULoxetine HCL 30 MG CAPSULE.DR PO SCH ×2 (07:43→20:49)
[2020-05-23] MEDS ORDERED: ALBUMIN HUMAN 25% 200 ML IV PRN (07:45)
[2020-05-23] MEDS ORDERED: IV NORMAL SALINE 1000ML BAG 1,000 ML IV PRN ×2 (07:45)
[2020-05-23] MEDS ORDERED: DIALYSIS PATIENT. MC PRN ×2 (07:45)
[2020-05-23] MEDS: CARVEDILOL 12.5 MG TABLET. PO SCH ×2 (07:46→16:29)
[2020-05-23] MEDS: HEPARIN for SUB-Q USE 5,000 UNIT/ML VIAL. SQ SCH ×2 (07:47→20:52)
[2020-05-23] MEDS: NYSTATIN TOPICAL POWDER 15GM BOTTLE. TP SCH ×2 (07:55→20:50)
[2020-05-23] MEDS: INSULIN GLARGINE SYRINGE. SQ SCH ×2 (07:58→10:00)
--- NOTE | 2020-05-23 08:28 | PDOC ---
PULMONARY PROGRESS NOTES DATE: 05/23/20 TIME: 08:28 Subjective Patient is on 100% nonrebreather, seen while on hemodialysis Confused on examination Afebrile Vitals Vital Signs Date Time Temp Pulse Resp B/P (MAP) Pulse Ox O2 Delivery O2 Flow Rate FiO2 05/23/20 07:46 89 142/63 05/23/20 03:50 97.9 24 100 NonRebreather Mask 15.0 97.9 Comments Patient is seen during pandemic, visual exam performed 100% nonrebreather No accessory muscle use no distress No obvious rash or edema General: Confused, Mild Distress Extremities: Other (trace BLE ) Labs Laboratory Tests Test 05/21/20 08:50 05/21/20 09:04 05/21/20 15:08 05/21/20 20:22 White Blood Count 5.3 x10^3/uL (4.0-11.0) Red Blood Count 2.66 x10^6/uL (3.50-5.40) Hemoglobin 8.5 g/dL (12.0-15.5) Hematocrit 25.3 % (36.0-47.0) Mean Corpuscular Volume 95 fL (79-100) Mean Corpuscular Hemoglobin 32 pg (25-35) Mean Corpuscular Hemoglobin Concent 34 g/dL (31-37) Red Cell Distribution Width 16.8 % (11.5-14.5) Platelet Count 174 x10^3/uL (140-400) Sodium Level 136 mmol/L (136-145) Potassium Level 4.1 mmol/L (3.5-5.1) Chloride Level 100 mmol/L (98-107) Carbon Dioxide Level 29 mmol/L (21-32) Anion Gap 7 (6-14) Blood Urea Nitrogen 31 mg/dL (7-20) Creatinine 2.6 mg/dL (0.6-1.0) Estimated GFR (Cockcroft-Gault) 19.0 BUN/Creatinine Ratio 12 (6-20) Glucose Level 111 mg/dL (70-99) Calcium Level 8.2 mg/dL (8.5-10.1) Phosphorus Level 2.9 mg/dL (2.6-4.7) Magnesium Level 1.9 mg/dL (1.8-2.4) Total Bilirubin 0.5 mg/dL (0.2-1.0) Aspartate Amino Transf (AST/SGOT) 26 U/L (15-37) Alanine Aminotransferase (ALT/SGPT) 27 U/L (14-59) Alkaline Phosphatase 97 U/L (46-116) Total Protein 5.9 g/dL (6.4-8.2) Albumin 2.2 g/dL (3.4-5.0) Albumin/Globulin Ratio 0.6 (1.0-1.7) O2 Saturation 94 % (92-99) Arterial Blood pH 7.40 (7.35-7.45) Arterial Blood pCO2 at Patient Temp 44 mmHg (35-46) Arterial Blood pO2 at Patient Temp 72 mmHg (75-108) Arterial Blood HCO3 27 mmol/L (21-28) Arterial Blood Base Excess 2 mmol/L (-3-3) FiO2 80% bipap Glucose (Fingerstick) 88 mg/dL (70-99) 93 mg/dL (70-99) Test 05/22/20 07:10 05/22/20 07:15 05/22/20 17:08 05/22/20 21:02 Sodium Level 139 mmol/L (136-145) Potassium Level 3.9 mmol/L (3.5-5.1) Chloride Level 100 mmol/L (98-107) Carbon Dioxide Level 26 mmol/L (21-32) Anion Gap 13 (6-14) Blood Urea Nitrogen 20 mg/dL (7-20) Creatinine 2.5 mg/dL (0.6-1.0) Estimated GFR (Cockcroft-Gault) 19.9 Glucose Level 79 mg/dL (70-99) Calcium Level 8.8 mg/dL (8.5-10.1) Glucose (Fingerstick) 85 mg/dL (70-99) 172 mg/dL (70-99) 131 mg/dL (70-99) Test 05/23/20 07:40 Glucose (Fingerstick) 112 mg/dL (70-99) Laboratory Tests Test 05/22/20 17:08 05/22/20 21:02 05/23/20 07:40 Glucose (Fingerstick) 172 mg/dL (70-99) 131 mg/dL (70-99) 112 mg/dL (70-99) Medications Active Scripts Medications Dose Route/Sig Max Daily Dose Days Date Category Dose Instructions Gabapentin 600 Mg Tablet 600 Mg PO HS 04/27/20 Reported Gabapentin (Gabapentin) 300 Mg Capsule 300 Mg PO DAILY 04/27/20 Reported Lantus Solostar (Insulin Glargine,Hum.rec.anlog) 100 Unit/1 Ml Insuln.pen 75 Unit SQ BID 09/19/19 Reported Januvia (Sitagliptin Phosphate) 25 Mg Tablet 25 Mg PO DAILY 09/19/19 Reported Novolog (Insulin Aspart) 100 Unit/1 Ml Cartridge 0 SQ TIDAC 01/26/19 Reported Sliding scale; patient has printout (at home) of scale. Unknown at this time. Singulair Tablet (Montelukast Sodium) 10 Mg Tablet 10 Mg PO HS 11/24/18 Reported Atorvastatin Calcium 40 Mg Tablet 1 Tab PO QHS 11/24/18 Reported Torsemide 20 Mg Tablet 2 Tab PO BID 11/24/18 Reported Cymbalta (Duloxetine Hcl) 30 Mg Capsule.dr 1 Cap PO BID 11/24/18 Reported Daily Jalen (Multivitamin) 1 Each Tablet 1 Each PO DAILY 11/24/18 Reported Comments CXR 05/20 IMPRESSION: Slightly improved diffuse bilateral opacities. CTA chest IMPRESSION: 1. No evidence of pulmonary thromboembolic disease. 2. Multifocal bilateral groundglass opacities and consolidations, consistent with patient's history of infection. 3. Dilated pulmonary trunk, which can be seen with pulmonary hypertension. Impression . IMPRESSION: 1. Acute hypoxemic respiratory failure secondary to COVID-19 viral pneumonia./ ALI/ARDS-- worsening hypoxia 2. COVID-[address] angiogram, no evidence of pulmonary embolism. 4. Chronic kidney disease, previously peritoneal dialysis, now HD 5. Morbid obesity. 6. Obstructive sleep apnea. 7. Hyperlipidemia. 8. Hypertension. Plan . PLAN: Continue supplemental oxygen to keep oxygen saturations greater than 92%, remains on 100% nonrebreather Follow CXR/ABG-- Pt. has completed full course of steroids Remains off ABX Pt. has completed Full course of remdesivir Follow nephrology recommendations now on HD Physical therapy/Occupational Therapy DVT/GI prophylaxis Discussed with RN and RT patient is a DNR/DNI Poor prognosis, no clinical improvement ESSENCE HERNANDEZ MD May 23, 2020 08:28
--- NOTE | 2020-05-23 11:32 | PDOC ---
Renal-Progress Notes Subjective Notes Notes NONE History of Present Illness Hx of present illness STABLE Vitals Vitals Vital Signs Date Time Temp Pulse Resp B/P (MAP) Pulse Ox O2 Delivery O2 Flow Rate FiO2 05/23/20 08:00 Non-Rebreather 15.0 05/23/20 07:46 89 142/63 05/23/20 07:00 96.5 22 97 96.5 Weight Weight [ ] I.O. Intake and Output Intake and Output 05/23/20 07:00 Intake Total 120 ml Output Total 1600 ml Balance -1480 ml Intake Oral 120 ml Output Urine Total 1600 ml # Bowel Movements 1 Labs Labs Laboratory Tests Test 05/22/20 17:08 05/22/20 21:02 05/23/20 07:40 Glucose (Fingerstick) 172 mg/dL (70-99) 131 mg/dL (70-99) 112 mg/dL (70-99) Micro Micro Microbiology 04/26/20 Blood Culture - Final, Complete NO GROWTH AFTER 5 DAYS Review of Systems Constitutional: yes: weakness Ears/Nose/Throat: Yes: no symptom reported Eyes: Yes: no symptom reported Pulmonary: Yes dyspnea Cardiovascular: Yes no symptom reported Genitourinary: Yes: no symptom reported Skin: Yes no symptom reported Psychiatric/Neurological: Yes: no symptom reported Endocrine: Yes: no symptom reported Physical Exam General Appearance: no apparent distress Skin: warm Respiratory: decreased breath sounds Heart: S1S2 Abdomen: soft Genitourinary: bladder flat Extremities: pulses present Neurology: alert, oriented Musculoskeletal: low back pain, Osteoarthritis Assessment Assessment IMP ESRD ACUTE RESP FAILURE ANEMIA COVID 19 DM II MORBID OBESITY FATIGUE ENCEPHALOPATHY PLAN CONT TO HOLD PD FOR NOW ID EVAL AND TX CONT BIPAP NEEDED HD AGAIN TODAY UF TOLERATED PLAN FOR HD DAILY FOR NOW CONT PROCALAMINE PT IS NOW A DNR AND DNI WILL FOLLOW CARTER PEREZ MD May 23, 2020 11:32
[2020-05-23] MEDS: AMINO AC 3%/ELECTROLYTE/GLYCER 1,000 ML IV SCH ×2 (12:23→23:09)
[2020-05-23 12:30] VITALS: BP 112/62
--- NOTE | 2020-05-23 14:31 | NUR ---
SS following up with discharge planning. SS reviewed pt chart and discussed with pt RN. Pt is currently requiring oxygen at 15 liters non rebreather mask. COVID19 recovered. Pt on PPN. Pt accepted at [facility], ; fax [phone], pending insurance authorization. SS phoned and faxed clinical updates to [facility]3]. SS will continue to follow for discharge planning.
[2020-05-23 15:00] VITALS: BP 155/73
[2020-05-23 16:33] LABS: HEMATOCRIT 28.6 % (36.0-47.0); HEMOGLOBIN 9.4 g/dL (12.0-15.5); RED BLOOD COUNT 2.96 x10^6/uL (3.50-5.40); RED CELL DISTRIBUTION WIDTH 16.3 % (11.5-14.5); WHITE BLOOD COUNT 6.1 x10^3/uL (4.0-11.0)
[2020-05-23 17:10] LABS: CALCIUM 9.1 mg/dL (8.5-10.1); GFR 25.8; POTASSIUM 4.4 mmol/L (3.5-5.1)
[2020-05-23 19:16] VITALS: BP 158/67
[2020-05-23] MEDS: GABAPENTIN 300 MG CAPSULE. PO SCH (20:49)
[2020-05-23 22:45] VITALS: BP 127/88
[2020-05-23] MEDS: CYCLOBENZAPRINE 10 MG TABLET. PO PRN (23:02)
[2020-05-23] MEDS: TEMAZEPAM 15 MG CAPSULE PO PRN (23:02)
[2020-05-24 02:33] VITALS: BP 114/58
[2020-05-24] MEDS: CYCLOBENZAPRINE 10 MG TABLET. PO PRN ×2 (05:26→14:16)
[2020-05-24] MEDS ORDERED: 0.9 % SODIUM CHLORIDE 10 ML DISP.SYRIN. IV PRN ×2 (08:00)
[2020-05-24] MEDS: CARVEDILOL 12.5 MG TABLET. PO SCH ×2 (08:00→17:02)
[2020-05-24] MEDS ORDERED: ALBUMIN HUMAN 25% 200 ML IV PRN (08:00)
[2020-05-24] MEDS ORDERED: IV NORMAL SALINE 1000ML BAG 1,000 ML IV PRN ×2 (08:00)
[2020-05-24] MEDS ORDERED: DIALYSIS PATIENT. MC PRN ×2 (08:00)
[2020-05-24] MEDS: LACTOBACILLUS RHAMNOSUS GG 1 CAPSULE. PO SCH ×2 (08:18→21:13)
[2020-05-24] MEDS: PANTOPRAZOLE 40 MG TABLET.DR. PO SCH (08:18)
[2020-05-24] MEDS: TORSEMIDE 20 MG TABLET. PO SCH ×2 (08:18→17:01)
[2020-05-24] MEDS: POTASSIUM CHLORIDE 20 MEQ TABLET.ER. PO SCH (08:18)
[2020-05-24] MEDS: FOLIC/VIT B COMP W-C (RENAL) TABLET. PO SCH (08:18)
[2020-05-24] MEDS: ZINC SULFATE 220 MG CAPSULE. PO SCH (08:18)
[2020-05-24] MEDS: DICYCLOMINE HCL 10 MG CAPSULE PO PRN (08:18)
[2020-05-24] MEDS: LINAGLIPTIN 5 MG TABLET PO SCH (08:18)
[2020-05-24] MEDS: MULTIVITAMIN with MINERAL TABLET. PO SCH (08:19)
[2020-05-24] MEDS: SEVELAMER CARBONATE 800 MG TABLET. PO SCH ×3 (08:19→17:02)
[2020-05-24] MEDS: DULoxetine HCL 30 MG CAPSULE.DR PO SCH ×2 (08:19→21:13)
--- NOTE | 2020-05-24 08:45 | PDOC ---
PULMONARY PROGRESS NOTES DATE: 05/24/20 TIME: 08:45 Subjective Patient is on 100% nonrebreather, Patient continues to have daily dialysis, seen while on hemodialysis today Afebrile Vitals Vital Signs Date Time Temp Pulse Resp B/P (MAP) Pulse Ox O2 Delivery O2 Flow Rate FiO2 05/24/20 02:33 98.4 105 20 114/58 (76) 100 NonRebreather Mask 15.0 98.4 Comments Patient is seen during pandemic, visual exam performed 100% nonrebreather No accessory muscle use no distress No obvious rash or edema General: Confused, Mild Distress Extremities: Other (trace BLE ) Labs Laboratory Tests Test 05/22/20 17:08 05/22/20 21:02 05/23/20 07:40 05/23/20 12:26 Glucose (Fingerstick) 172 mg/dL (70-99) 131 mg/dL (70-99) 112 mg/dL (70-99) 134 mg/dL (70-99) Test 05/23/20 15:45 05/23/20 16:37 05/23/20 20:56 05/24/20 07:43 White Blood Count 6.1 x10^3/uL (4.0-11.0) Red Blood Count 2.96 x10^6/uL (3.50-5.40) Hemoglobin 9.4 g/dL (12.0-15.5) Hematocrit 28.6 % (36.0-47.0) Mean Corpuscular Volume 97 fL (79-100) Mean Corpuscular Hemoglobin 32 pg (25-35) Mean Corpuscular Hemoglobin Concent 33 g/dL (31-37) Red Cell Distribution Width 16.3 % (11.5-14.5) Platelet Count 230 x10^3/uL (140-400) Sodium Level 137 mmol/L (136-145) Potassium Level 4.4 mmol/L (3.5-5.1) Chloride Level 100 mmol/L (98-107) Carbon Dioxide Level 27 mmol/L (21-32) Anion Gap 10 (6-14) Blood Urea Nitrogen 10 mg/dL (7-20) Creatinine 2.0 mg/dL (0.6-1.0) Estimated GFR (Cockcroft-Gault) 25.8 Glucose Level 133 mg/dL (70-99) Calcium Level 9.1 mg/dL (8.5-10.1) Glucose (Fingerstick) 151 mg/dL (70-99) 115 mg/dL (70-99) 185 mg/dL (70-99) Laboratory Tests Test 05/23/20 12:26 05/23/20 15:45 05/23/20 16:37 05/23/20 20:56 Glucose (Fingerstick) 134 mg/dL (70-99) 151 mg/dL (70-99) 115 mg/dL (70-99) White Blood Count 6.1 x10^3/uL (4.0-11.0) Red Blood Count 2.96 x10^6/uL (3.50-5.40) Hemoglobin 9.4 g/dL (12.0-15.5) Hematocrit 28.6 % (36.0-47.0) Mean Corpuscular Volume 97 fL (79-100) Mean Corpuscular Hemoglobin 32 pg (25-35) Mean Corpuscular Hemoglobin Concent 33 g/dL (31-37) Red Cell Distribution Width 16.3 % (11.5-14.5) Platelet Count 230 x10^3/uL (140-400) Sodium Level 137 mmol/L (136-145) Potassium Level 4.4 mmol/L (3.5-5.1) Chloride Level 100 mmol/L (98-107) Carbon Dioxide Level 27 mmol/L (21-32) Anion Gap 10 (6-14) Blood Urea Nitrogen 10 mg/dL (7-20) Creatinine 2.0 mg/dL (0.6-1.0) Estimated GFR (Cockcroft-Gault) 25.8 Glucose Level 133 mg/dL (70-99) Calcium Level 9.1 mg/dL (8.5-10.1) Test 05/24/20 07:43 Glucose (Fingerstick) 185 mg/dL (70-99) Medications Active Scripts Medications Dose Route/Sig Max Daily Dose Days Date Category Dose Instructions Gabapentin 600 Mg Tablet 600 Mg PO HS 04/27/20 Reported Gabapentin (Gabapentin) 300 Mg Capsule 300 Mg PO DAILY 04/27/20 Reported Lantus Solostar (Insulin Glargine,Hum.rec.anlog) 100 Unit/1 Ml Insuln.pen 75 Unit SQ BID 09/19/19 Reported Januvia (Sitagliptin Phosphate) 25 Mg Tablet 25 Mg PO DAILY 09/19/19 Reported Novolog (Insulin Aspart) 100 Unit/1 Ml Cartridge 0 SQ TIDAC 01/26/19 Reported Sliding scale; patient has printout (at home) of scale. Unknown at this time. Singulair Tablet (Montelukast Sodium) 10 Mg Tablet 10 Mg PO HS 11/24/18 Reported Atorvastatin Calcium 40 Mg Tablet 1 Tab PO QHS 11/24/18 Reported Torsemide 20 Mg Tablet 2 Tab PO BID 11/24/18 Reported Cymbalta (Duloxetine Hcl) 30 Mg Capsule.dr 1 Cap PO BID 11/24/18 Reported Daily Jalen (Multivitamin) 1 Each Tablet 1 Each PO DAILY 11/24/18 Reported Comments CXR 05/20 IMPRESSION: Slightly improved diffuse bilateral opacities. CTA chest IMPRESSION: 1. No evidence of pulmonary thromboembolic disease. 2. Multifocal bilateral groundglass opacities and consolidations, consistent with patient's history of infection. 3. Dilated pulmonary trunk, which can be seen with pulmonary hypertension. Impression . IMPRESSION: 1. Acute hypoxemic respiratory failure secondary to COVID-19 viral pneumonia./ ALI/ARDS-- worsening hypoxia 2. COVID-[address] angiogram, no evidence of pulmonary embolism. 4. Chronic kidney disease, previously peritoneal dialysis, now HD 5. Morbid obesity. 6. Obstructive sleep apnea. 7. Hyperlipidemia. 8. Hypertension. Plan . PLAN: Continue supplemental oxygen to keep oxygen saturations greater than 92%, remains on 100% nonrebreather Follow CXR/ABG-- PRN Pt. has completed full course of steroids Remains off ABX Pt. has completed Full course of remdesivir Follow nephrology recommendations now on HD, ongoing daily hemodialysis Physical therapy/Occupational Therapy DVT/GI prophylaxis Discussed with RN and RT patient is a DNR/DNI Poor prognosis, no clinical improvement ESSENCE HERNANDEZ MD May 24, 2020 08:45
[2020-05-24] MEDS: INSULIN GLARGINE SYRINGE. SQ SCH (09:00)
[2020-05-24] MEDS: NYSTATIN TOPICAL POWDER 15GM BOTTLE. TP SCH ×2 (09:00→21:14)
[2020-05-24] MEDS: HEPARIN for SUB-Q USE 5,000 UNIT/ML VIAL. SQ SCH ×2 (09:03→21:19)
--- NOTE | 2020-05-24 09:04 | PDOC ---
Provider Note Date of Service: DATE: 05/24/20 TIME: 09:03 Provider Note hemo more effective re labs, glucose ok on less levemir- rest same, still 100% O2 needed Justifications for Admission Other Justification VERNA GARCIA MD May 24, 2020 09:04
--- NOTE | 2020-05-24 11:02 | NUR ---
pt left for dialysis at approx 0930.
--- NOTE | 2020-05-24 11:02 | NUR ---
SS following up with discharge planning. SS reviewed pt chart and discussed with pt RN. Pt is currently on 15 liter non-rebreather mask. COVID19 recovered per RN. Hemodialysis today. Pt clinically accepted at [facility], ; fax [phone], pending insurance authorization. Per Nika at [facility] insurance is pending. SS will continue to follow for discharge planning.
--- NOTE | 2020-05-24 13:01 | PDOC ---
Renal-Progress Notes Subjective Notes Notes STILL NEEDING HIGH O2 History of Present Illness Hx of present illness NO ACUTE CHANGE Vitals Vitals Vital Signs Date Time Temp Pulse Resp B/P (MAP) Pulse Ox O2 Delivery O2 Flow Rate FiO2 05/24/20 09:33 97 NonRebreather Mask 15.0 05/24/20 07:00 98.1 105 20 98.1 Weight Weight [ ] I.O. Intake and Output Intake and Output 05/24/20 07:00 Intake Total 1700 ml Balance 1700 ml Intake Oral 700 ml IV Total 1000 ml # Bowel Movements 1 Labs Labs Laboratory Tests Test 05/23/20 15:45 05/23/20 16:37 05/23/20 20:56 05/24/20 07:43 White Blood Count 6.1 x10^3/uL (4.0-11.0) Red Blood Count 2.96 x10^6/uL (3.50-5.40) Hemoglobin 9.4 g/dL (12.0-15.5) Hematocrit 28.6 % (36.0-47.0) Mean Corpuscular Volume 97 fL (79-100) Mean Corpuscular Hemoglobin 32 pg (25-35) Mean Corpuscular Hemoglobin Concent 33 g/dL (31-37) Red Cell Distribution Width 16.3 % (11.5-14.5) Platelet Count 230 x10^3/uL (140-400) Sodium Level 137 mmol/L (136-145) Potassium Level 4.4 mmol/L (3.5-5.1) Chloride Level 100 mmol/L (98-107) Carbon Dioxide Level 27 mmol/L (21-32) Anion Gap 10 (6-14) Blood Urea Nitrogen 10 mg/dL (7-20) Creatinine 2.0 mg/dL (0.6-1.0) Estimated GFR (Cockcroft-Gault) 25.8 Glucose Level 133 mg/dL (70-99) Calcium Level 9.1 mg/dL (8.5-10.1) Glucose (Fingerstick) 151 mg/dL (70-99) 115 mg/dL (70-99) 185 mg/dL (70-99) Micro Micro Microbiology 04/26/20 Blood Culture - Final, Complete NO GROWTH AFTER 5 DAYS Review of Systems Constitutional: yes: weakness Ears/Nose/Throat: Yes: no symptom reported Eyes: Yes: no symptom reported Pulmonary: Yes dyspnea Cardiovascular: Yes no symptom reported Genitourinary: Yes: no symptom reported Skin: Yes no symptom reported Psychiatric/Neurological: Yes: no symptom reported Endocrine: Yes: no symptom reported Physical Exam General Appearance: no apparent distress Skin: warm Respiratory: decreased breath sounds Heart: S1S2 Abdomen: soft Genitourinary: bladder flat Extremities: pulses present Neurology: alert, oriented Musculoskeletal: low back pain, Osteoarthritis Assessment Assessment IMP ESRD ACUTE RESP FAILURE ANEMIA COVID 19 DM II MORBID OBESITY FATIGUE ENCEPHALOPATHY PLAN CONT TO HOLD PD FOR NOW ID EVAL AND TX CONT BIPAP NEEDED HD AGAIN TODAY UF TOLERATED PLAN FOR HD DAILY FOR NOW CONT PROCALAMINE PT IS NOW A DNR AND DNI WILL FOLLOW CARTER PEREZ MD May 24, 2020 13:01
[2020-05-24] MEDS: AMINO AC 3%/ELECTROLYTE/GLYCER 1,000 ML IV SCH (14:10)
[2020-05-24 15:00] VITALS: BP 123/54
--- NOTE | 2020-05-24 16:21 | NUR ---
SS following up with discharge planning. [facility] declined pt for LTACH placement. Peer to peer information provided. Case management helping to arrange peer to peer. SS will continue to follow for discharge planning.
[2020-05-24 19:49] VITALS: BP 82/53
[2020-05-24] MEDS: GABAPENTIN 300 MG CAPSULE. PO SCH (21:13)
[2020-05-24 22:08] VITALS: BP 122/58
[2020-05-24] MEDS: TEMAZEPAM 15 MG CAPSULE PO PRN (23:17)
[2020-05-25] MEDS: AMINO AC 3%/ELECTROLYTE/GLYCER 1,000 ML IV SCH ×3 (00:19→22:48)
[2020-05-25 03:30] VITALS: BP 126/80
[2020-05-25 07:00] VITALS: BP 108/58
--- NOTE | 2020-05-25 07:18 | PDOC ---
PULMONARY PROGRESS NOTES DATE: 05/25/20 TIME: 07:16 Subjective Patient is on 100% nrb appears comfortable doesnt answer my Qs per rn makes appropriate conversation at times Patient continues to have daily dialysis, Afebrile Vitals Vital Signs Date Time Temp Pulse Resp B/P (MAP) Pulse Ox O2 Delivery O2 Flow Rate FiO2 05/25/20 03:30 84 22 126/80 (95) 100 NonRebreather Mask 15.0 05/24/20 22:08 98.9 98.9 Comments Patient is seen during COVID- pandemic, visual exam performed 100% nonrebreather NC AT rrr No accessory muscle use no distress No obvious rash or edema Labs Laboratory Tests Test 05/23/20 07:40 05/23/20 12:26 05/23/20 15:45 05/23/20 16:37 Glucose (Fingerstick) 112 mg/dL (70-99) 134 mg/dL (70-99) 151 mg/dL (70-99) White Blood Count 6.1 x10^3/uL (4.0-11.0) Red Blood Count 2.96 x10^6/uL (3.50-5.40) Hemoglobin 9.4 g/dL (12.0-15.5) Hematocrit 28.6 % (36.0-47.0) Mean Corpuscular Volume 97 fL (79-100) Mean Corpuscular Hemoglobin 32 pg (25-35) Mean Corpuscular Hemoglobin Concent 33 g/dL (31-37) Red Cell Distribution Width 16.3 % (11.5-14.5) Platelet Count 230 x10^3/uL (140-400) Sodium Level 137 mmol/L (136-145) Potassium Level 4.4 mmol/L (3.5-5.1) Chloride Level 100 mmol/L (98-107) Carbon Dioxide Level 27 mmol/L (21-32) Anion Gap 10 (6-14) Blood Urea Nitrogen 10 mg/dL (7-20) Creatinine 2.0 mg/dL (0.6-1.0) Estimated GFR (Cockcroft-Gault) 25.8 Glucose Level 133 mg/dL (70-99) Calcium Level 9.1 mg/dL (8.5-10.1) Test 05/23/20 20:56 05/24/20 07:43 05/24/20 16:43 Glucose (Fingerstick) 115 mg/dL (70-99) 185 mg/dL (70-99) 145 mg/dL (70-99) Laboratory Tests Test 05/24/20 07:43 05/24/20 16:43 Glucose (Fingerstick) 185 mg/dL (70-99) 145 mg/dL (70-99) Medications Active Scripts Medications Dose Route/Sig Max Daily Dose Days Date Category Dose Instructions Gabapentin 600 Mg Tablet 600 Mg PO HS 04/27/20 Reported Gabapentin (Gabapentin) 300 Mg Capsule 300 Mg PO DAILY 04/27/20 Reported Lantus Solostar (Insulin Glargine,Hum.rec.anlog) 100 Unit/1 Ml Insuln.pen 75 Unit SQ BID 09/19/19 Reported Januvia (Sitagliptin Phosphate) 25 Mg Tablet 25 Mg PO DAILY 09/19/19 Reported Novolog (Insulin Aspart) 100 Unit/1 Ml Cartridge 0 SQ TIDAC 01/26/19 Reported Sliding scale; patient has printout (at home) of scale. Unknown at this time. Singulair Tablet (Montelukast Sodium) 10 Mg Tablet 10 Mg PO HS 11/24/18 Reported Atorvastatin Calcium 40 Mg Tablet 1 Tab PO QHS 11/24/18 Reported Torsemide 20 Mg Tablet 2 Tab PO BID 11/24/18 Reported Cymbalta (Duloxetine Hcl) 30 Mg Capsule.dr 1 Cap PO BID 11/24/18 Reported Daily Jalen (Multivitamin) 1 Each Tablet 1 Each PO DAILY 11/24/18 Reported Comments CXR 05/20 IMPRESSION: Slightly improved diffuse bilateral opacities. CTA chest IMPRESSION: 1. No evidence of pulmonary thromboembolic disease. 2. Multifocal bilateral groundglass opacities and consolidations, consistent with patient's history of infection. 3. Dilated pulmonary trunk, which can be seen with pulmonary hypertension. Impression . IMPRESSION: 1. Acute hypoxemic respiratory failure secondary to COVID-19 viral pneumonia./ ALI/ARDS-- 2. COVID-[address] angiogram, no evidence of pulmonary embolism. 4. Chronic kidney disease, previously peritoneal dialysis, now HD 5. Morbid obesity. 6. Obstructive sleep apnea. 7. Hyperlipidemia. 8. Hypertension. Plan . PLAN: Continue supplemental oxygen to keep oxygen saturations greater than 90%, Follow CXR/ABG-- PRN Pt. has completed full course of steroids Remains off ABX Pt. has completed Full course of remdesivir Follow nephrology recommendations now on HD, Physical therapy/Occupational Therapy DVT/GI prophylaxis Discussed with RN and RT patient is a DNR/DNI Poor prognosis, no clinical improvement ROBIN JARAMILLO MD May 25, 2020 07:18
[2020-05-25] MEDS: SEVELAMER CARBONATE 800 MG TABLET. PO SCH ×3 (08:00→16:31)
[2020-05-25] MEDS: INSULIN GLARGINE SYRINGE. SQ SCH (09:00)
[2020-05-25] MEDS: NYSTATIN TOPICAL POWDER 15GM BOTTLE. TP SCH ×2 (09:52→20:40)
[2020-05-25 11:00] VITALS: BP 150/63
[2020-05-25] MEDS: FOLIC/VIT B COMP W-C (RENAL) TABLET. PO SCH (11:23)
[2020-05-25] MEDS: DULoxetine HCL 30 MG CAPSULE.DR PO SCH ×2 (11:23→20:39)
[2020-05-25] MEDS: TORSEMIDE 20 MG TABLET. PO SCH ×2 (11:23→16:36)
[2020-05-25] MEDS: POTASSIUM CHLORIDE 20 MEQ TABLET.ER. PO SCH (11:23)
[2020-05-25] MEDS: PANTOPRAZOLE 40 MG TABLET.DR. PO SCH (11:23)
[2020-05-25] MEDS: CYCLOBENZAPRINE 10 MG TABLET. PO PRN (11:23)
[2020-05-25] MEDS: MULTIVITAMIN with MINERAL TABLET. PO SCH (11:24)
[2020-05-25] MEDS: CARVEDILOL 12.5 MG TABLET. PO SCH ×2 (11:24→16:36)
[2020-05-25] MEDS: DICYCLOMINE HCL 10 MG CAPSULE PO PRN (11:25)
[2020-05-25] MEDS: LACTOBACILLUS RHAMNOSUS GG 1 CAPSULE. PO SCH ×2 (11:25→20:39)
[2020-05-25] MEDS: LINAGLIPTIN 5 MG TABLET PO SCH (11:25)
[2020-05-25] MEDS: ZINC SULFATE 220 MG CAPSULE. PO SCH (11:25)
[2020-05-25] MEDS: HEPARIN for SUB-Q USE 5,000 UNIT/ML VIAL. SQ SCH ×2 (11:30→20:44)
[2020-05-25 15:00] VITALS: BP 105/52
--- NOTE | 2020-05-25 16:09 | PN ---
DATE: 05/25/2020 LOCATION: She is in room 258. SUBJECTIVE: The patient remains on a 100% nonrebreather. Appears comfortable in bed, but is moving around very little. Minimally verbal during my encounter. She continues on dialysis. OBJECTIVE VITAL SIGNS: Stable. She is afebrile. She continues to require high flow oxygen. Sugars have been decent. CHEST: Reveals decreased breath sounds, but she is not short of breath. HEART: Regular. ABDOMEN: Benign. IMPRESSION: COVID-19 pneumonia with acute respiratory failure, end-stage renal disease, previously on peritoneal dialysis, now hemodialysis, morbid obesity, obstructive sleep apnea. PLAN: Continue supportive care. Pulmonary help appreciated. Clinical course is not reassuring for a good ending, although I certainly hope we get there. JAILENE HINTON MD DR: KHADAR/batool JOB#: [id number] / [id number]
[2020-05-25] MEDS: SIMETHICONE 80 MG TAB.CHEW PO PRN (16:31)
[2020-05-25] MEDS: ONDANSETRON ODT 4 MG TAB.RAPDIS. PO PRN (16:31)
[2020-05-25 19:14] VITALS: BP 119/63
[2020-05-25] MEDS: GABAPENTIN 300 MG CAPSULE. PO SCH (20:39)
[2020-05-25 22:12] VITALS: BP 122/60
[2020-05-25] MEDS: TEMAZEPAM 15 MG CAPSULE PO PRN (22:47)
[2020-05-26 02:17] VITALS: BP 114/57
--- NOTE | 2020-05-26 06:50 | PDOC ---
PULMONARY PROGRESS NOTES DATE: 05/26/20 TIME: 06:49 Subjective alert today on 02 10 lpm sob better, has occ cough is tired Vitals Vital Signs Date Time Temp Pulse Resp B/P (MAP) Pulse Ox O2 Delivery O2 Flow Rate FiO2 05/26/20 02:17 99.3 94 20 114/57 (76) 90 Nasal Cannula 10.0 99.3 Comments Patient is seen during , visual exam performed 100% nonrebreather NC AT rrr No accessory muscle use no distress No obvious rash or edema Labs Laboratory Tests Test 05/24/20 07:43 05/24/20 16:43 05/25/20 07:38 05/25/20 11:48 Glucose (Fingerstick) 185 mg/dL (70-99) 145 mg/dL (70-99) 153 mg/dL (70-99) 149 mg/dL (70-99) Test 05/25/20 16:27 05/25/20 20:01 Glucose (Fingerstick) 212 mg/dL (70-99) 242 mg/dL (70-99) Laboratory Tests Test 05/25/20 07:38 05/25/20 11:48 05/25/20 16:27 05/25/20 20:01 Glucose (Fingerstick) 153 mg/dL (70-99) 149 mg/dL (70-99) 212 mg/dL (70-99) 242 mg/dL (70-99) Medications Active Scripts Medications Dose Route/Sig Max Daily Dose Days Date Category Dose Instructions Gabapentin 600 Mg Tablet 600 Mg PO HS 04/27/20 Reported Gabapentin (Gabapentin) 300 Mg Capsule 300 Mg PO DAILY 04/27/20 Reported Lantus Solostar (Insulin Glargine,Hum.rec.anlog) 100 Unit/1 Ml Insuln.pen 75 Unit SQ BID 09/19/19 Reported Januvia (Sitagliptin Phosphate) 25 Mg Tablet 25 Mg PO DAILY 09/19/19 Reported Novolog (Insulin Aspart) 100 Unit/1 Ml Cartridge 0 SQ TIDAC 01/26/19 Reported Sliding scale; patient has printout (at home) of scale. Unknown at this time. Singulair Tablet (Montelukast Sodium) 10 Mg Tablet 10 Mg PO HS 11/24/18 Reported Atorvastatin Calcium 40 Mg Tablet 1 Tab PO QHS 11/24/18 Reported Torsemide 20 Mg Tablet 2 Tab PO BID 11/24/18 Reported Cymbalta (Duloxetine Hcl) 30 Mg Capsule. 1 Cap PO BID 11/24/18 Reported Daily Jalen (Multivitamin) 1 Each Tablet 1 Each PO DAILY 11/24/18 Reported Comments CXR 05/20 IMPRESSION: Slightly improved diffuse bilateral opacities. CTA chest IMPRESSION: 1. No evidence of pulmonary thromboembolic disease. 2. Multifocal bilateral groundglass opacities and consolidations, consistent with patient's history of infection. 3. Dilated pulmonary trunk, which can be seen with pulmonary hypertension. Impression . IMPRESSION: 1. Acute hypoxemic respiratory failure secondary to COVID-19 viral pneumonia./ ALI/ARDS-- 2. COVID-[address] angiogram, no evidence of pulmonary embolism. 4. Chronic kidney disease, previously peritoneal dialysis, now HD 5. Morbid obesity. 6. Obstructive sleep apnea. 7. Hyperlipidemia. 8. Hypertension. Plan . PLAN: Continue supplemental oxygen to keep oxygen saturations 90%, Follow CXR/ABG-- PRN Pt. has completed full course of steroids monitor off ABX Pt. has completed Full course of remdesivir Follow nephrology recommendations now on HD, Physical therapy/Occupational Therapy DVT/GI prophylaxis Discussed with RN and RT patient is a DNR/DNI ROBIN JARAMILLO MD May 26, 2020 06:50
[2020-05-26 07:00] VITALS: BP 108/57
[2020-05-26] MEDS: CYCLOBENZAPRINE 10 MG TABLET. PO PRN (08:25)
[2020-05-26] MEDS: FOLIC/VIT B COMP W-C (RENAL) TABLET. PO SCH (08:25)
[2020-05-26] MEDS: MULTIVITAMIN with MINERAL TABLET. PO SCH (08:25)
[2020-05-26] MEDS: LACTOBACILLUS RHAMNOSUS GG 1 CAPSULE. PO SCH ×2 (08:25→20:57)
[2020-05-26] MEDS: ZINC SULFATE 220 MG CAPSULE. PO SCH (08:25)
[2020-05-26] MEDS: ACETAMINOPHEN 325 MG TABLET. PO PRN (08:26)
[2020-05-26] MEDS: POTASSIUM CHLORIDE 20 MEQ TABLET.ER. PO SCH (08:26)
[2020-05-26] MEDS: DICYCLOMINE HCL 10 MG CAPSULE PO PRN (08:26)
[2020-05-26] MEDS: TORSEMIDE 20 MG TABLET. PO SCH ×2 (08:26→13:05)
[2020-05-26] MEDS: CARVEDILOL 12.5 MG TABLET. PO SCH ×2 (08:28→17:00)
[2020-05-26] MEDS: LINAGLIPTIN 5 MG TABLET PO SCH (08:28)
[2020-05-26] MEDS: DULoxetine HCL 30 MG CAPSULE.DR PO SCH ×2 (08:28→20:57)
[2020-05-26] MEDS: NYSTATIN TOPICAL POWDER 15GM BOTTLE. TP SCH ×2 (08:29→20:58)
[2020-05-26] MEDS: SEVELAMER CARBONATE 800 MG TABLET. PO SCH ×3 (08:29→17:00)
[2020-05-26] MEDS: PANTOPRAZOLE 40 MG TABLET.DR. PO SCH (08:32)
[2020-05-26] MEDS: INSULIN GLARGINE SYRINGE. SQ SCH (09:08)
[2020-05-26] MEDS: HEPARIN for SUB-Q USE 5,000 UNIT/ML VIAL. SQ SCH ×2 (09:08→21:05)
[2020-05-26 10:52] VITALS: BP 120/63
[2020-05-26] MEDS: AMINO AC 3%/ELECTROLYTE/GLYCER 1,000 ML IV SCH ×2 (11:02→21:50)
[2020-05-26] MEDS: FLUCONAZOLE 100 MG TABLET. PO SCH (13:05)
[2020-05-26 15:15] VITALS: BP 117/61
[2020-05-26] MEDS ORDERED: BISACODYL 10 MG SUPP.RECT. PR PRN (17:45)
[2020-05-26 19:15] VITALS: BP 109/55
--- NOTE | 2020-05-26 19:15 | NUR ---
Pt in bed asleep assessment completed vss poc explained pt denied pain at this time will resume care and continue to monitor pt.Call light in reach.
[2020-05-26] MEDS: GABAPENTIN 300 MG CAPSULE. PO SCH (20:57)
--- NOTE | 2020-05-26 21:25 | PN ---
DATE: 05/26/2020 LOCATION: She is in room 258. SUBJECTIVE: The patient is awake and alert this morning, complains of being tired. Denies shortness of breath, is very hard of hearing and have to speak in her right ear loudly to converse. OBJECTIVE: VITAL SIGNS: Stable. She is afebrile. She is on 10 liters per nasal cannula O2, which has decreased over the last several days. CHEST: Reveals decreased breath sounds. HEART: Regular. ABDOMEN: Obese and benign. IMPRESSION: 1. Acute respiratory failure due to COVID-19 pneumonia. 2. End-stage renal disease, currently on hemodialysis with peritoneal dialysis prior to admission. 3. Morbid obesity. 4. Obstructive sleep apnea. PLAN: Continue supportive care. Pulmonary help appreciated. She actually is looking better in the last 24 hours and hopefully is going to return some kind of a corner here. I encouraged her to be up whenever she can with the help of therapy, start mobilizing which she states she will. JAILENE HINTON MD DR: KHADAR/batool JOB#: [id number] / [id number]
[2020-05-26 22:23] VITALS: BP 127/51
[2020-05-26] MEDS: TEMAZEPAM 15 MG CAPSULE PO PRN (22:58)
[2020-05-27 02:48] VITALS: BP 172/74
[2020-05-27] MEDS: PANTOPRAZOLE 40 MG TABLET.DR. PO SCH (06:02)
[2020-05-27 07:22] VITALS: BP 141/64
[2020-05-27] MEDS: CARVEDILOL 12.5 MG TABLET. PO SCH ×3 (08:00→15:17)
[2020-05-27] MEDS: SEVELAMER CARBONATE 800 MG TABLET. PO SCH ×4 (08:00→17:00)
--- NOTE | 2020-05-27 08:38 | PDOC ---
Provider Note Date of Service: DATE: 05/27/20 TIME: 08:36 Provider Note glucose mildly up so inc lantus to 60, rest of meds same- no new problems Justifications for Admission Other Justification VERNA GARCIA MD May 27, 2020 08:38
[2020-05-27] MEDS: DULoxetine HCL 30 MG CAPSULE.DR PO SCH ×3 (09:00→20:37)
[2020-05-27] MEDS: LACTOBACILLUS RHAMNOSUS GG 1 CAPSULE. PO SCH ×3 (09:00→20:36)
[2020-05-27] MEDS ORDERED: INSULIN GLARGINE SYRINGE. SQ SCH (09:00)
[2020-05-27] MEDS: TORSEMIDE 20 MG TABLET. PO SCH ×2 (09:29→15:16)
[2020-05-27] MEDS: LINAGLIPTIN 5 MG TABLET PO SCH ×2 (09:30→15:16)
[2020-05-27] MEDS: FLUCONAZOLE 100 MG TABLET. PO SCH ×2 (09:30→15:17)
[2020-05-27] MEDS: MULTIVITAMIN with MINERAL TABLET. PO SCH ×2 (09:31→15:17)
[2020-05-27] MEDS: FOLIC/VIT B COMP W-C (RENAL) TABLET. PO SCH ×2 (09:31→15:17)
[2020-05-27] MEDS: POTASSIUM CHLORIDE 20 MEQ TABLET.ER. PO SCH ×2 (09:31→15:16)
[2020-05-27] MEDS: ZINC SULFATE 220 MG CAPSULE. PO SCH ×2 (09:31→15:16)
[2020-05-27] MEDS: NYSTATIN TOPICAL POWDER 15GM BOTTLE. TP SCH ×2 (09:33→20:37)
[2020-05-27] MEDS: HEPARIN for SUB-Q USE 5,000 UNIT/ML VIAL. SQ SCH ×2 (09:35→20:42)
[2020-05-27 10:36] VITALS: BP 152/52
--- NOTE | 2020-05-27 10:55 | PDOC ---
DATE OF SERVICE DATE: 05/27/20 TIME: 10:53 SUBJECTIVE ROS seen on HD, stable , remains on Nonrebreather OBJECTIVE Vital Signs Vital Signs Date Time Temp Pulse Resp B/P (MAP) Pulse Ox O2 Delivery O2 Flow Rate FiO2 05/27/20 10:36 97.9 93 22 152/52 (85) 100 NonRebreather Mask 15.0 97.9 I & 0 Intake and Output 05/27/20 07:00 Intake Total 400 ml Output Total 525 ml Balance -125 ml Intake Oral 400 ml Output Urine Total 525 ml # Bowel Movements 2 PHYSICAL EXAM Physical Exam General Appearance: NAD HEEN On nonrebreather mask neck supple Lungs : decreased breath sounds, non labored Heart: S1S2 Abdomen: soft, obese , PD cath in place Extremities: Edema mild Neurology: alert, oriented DIAGNOSIS/ASSESSMENT Assessment & Plan ESRD - switched from PD to HD , has been getting Hd qd since , last was on 05/25 Seen on dialysis, tolerating well, discussed treatment plan with Ayo . No labs done since 05/23 , ordered for wed Will continue HD MWF schedule, extra treatment prn as needed Acute hypoxemic respiratory failure secondary to COVID-19 viral pneumonia./ ALI/ARDS- on Non rebreather mask . No recent CxR - last 05/20 reported stable infiltrates . Receiving daily dialysis, however no change in Resp status She has completed full course of steroids and remdesivir COVID-[address] angiogram, no evidence of pulmonary embolism. Morbid obesity. Obstructive sleep apnea. COMMENT/RELEVANT DATA Meds Current Medications Medications (Trade) Dose Ordered Sig/Mya Start Time Stop Time Status Last Admin Dose Admin Acetaminophen (Tylenol) 650 mg PRN Q4HRS PRN 04/27/20 23:15 05/26/20 08:26 650 MG Albumin Human 200 ml @ 200 mls/hr 1X PRN PRN 05/24/20 08:00 05/24/20 13:59 DC Amino Acids/ Glycerin/ Electrolytes 1,000 ml @ 80 mls/hr [id number] 05/23/20 11:45 05/26/20 21:50 80 MLS/HR Ascorbic Acid (Vitamin C) 1,000 mg DAILY 04/28/20 13:00 04/30/20 08:57 DC 04/30/20 08:11 1,000 MG Atorvastatin Calcium (Lipitor) 40 mg QHS 04/27/20 21:00 04/30/20 08:57 DC 04/29/20 19:57 40 MG Atropine Sulfate (ATROPINE 0.5mg SYRINGE) 0.5 mg PRN Q5MIN PRN 05/19/20 09:45 05/21/20 16:18 DC Azithromycin 250 ml @ 250 mls/hr 1X ONCE 04/26/20 23:00 04/26/20 23:59 DC 04/26/20 23:18 250 MLS/HR Bisacodyl (Dulcolax Supp) 10 mg PRN DAILY PRN 05/26/20 17:45 05/26/20 17:55 10 MG Carvedilol (Coreg) 25 mg BIDWMEALS 05/01/20 17:00 05/27/20 09:30 25 MG Ceftriaxone Sodium (Rocephin) 1 gm Q24H 04/28/20 13:00 05/03/20 09:20 DC 05/02/20 12:20 1 GM Cyclobenzaprine HCl (Flexeril) 10 mg PRN QID PRN 04/28/20 21:00 05/26/20 08:25 10 MG Dexamethasone (Decadron) 4 mg DAILYWBKFT 05/04/20 08:00 05/06/20 08:33 DC 05/06/20 08:15 4 MG Dexmedetomidine HCl 400 mcg/ Sodium Chloride 100 ml @ 6.99 mls/hr CONT PRN 05/19/20 09:45 05/21/20 16:18 DC 05/21/20 10:38 6.99 MLS/HR Dextrose (Dextrose 50%-Water Syringe) 12.5 gm PRN Q15MIN PRN 04/27/20 04:00 05/03/20 18:50 25 GM Dicyclomine HCl (Bentyl) 10 mg PRN TID PRN 05/18/20 22:15 05/26/20 08:26 10 MG Docusate Sodium (Colace) 100 mg BID 05/01/20 12:45 05/13/20 18:00 DC 05/13/20 09:01 100 MG Doxycycline Hyclate (Vibra-Tab) 100 mg BID 04/28/20 13:00 05/03/20 09:20 DC 05/03/20 08:36 100 MG Duloxetine HCl (Cymbalta) 30 mg BID 04/27/20 09:00 05/27/20 09:29 30 MG Enoxaparin Sodium (Lovenox 30mg Syringe) 30 mg Q24H 04/28/20 13:00 04/28/20 12:38 DC Fluconazole (Diflucan) 200 mg DAILY08 05/26/20 12:00 06/01/20 08:01 05/27/20 09:30 200 MG Gabapentin (Neurontin) 600 mg QHS 04/27/20 04:30 05/26/20 20:57 600 MG Heparin Sodium (Porcine) (Heparin Sodium) 2,500 unit 1X ONCE 05/20/20 11:00 05/20/20 11:01 DC 05/20/20 11:26 2,500 UNIT Info (CONTRAST GIVEN -- Rx MONITORING) 1 each PRN DAILY PRN 04/26/20 20:45 04/28/20 20:44 DC Info (PHARMACY MONITORING -- do not chart) 1 each PRN DAILY PRN 05/24/20 08:00 Insulin Glargine (Lantus Syringe) 60 unit DAILY 05/27/20 09:00 05/27/20 09:36 60 UNIT Insulin Human Lispro (HumaLOG) 20 units PRN BFRMEALHC PRN 05/06/20 03:00 05/13/20 09:05 20 UNITS Iohexol (Omnipaque 350 Mg/ml) 100 ml 1X ONCE 04/26/20 20:45 04/26/20 20:46 DC 04/26/20 21:20 100 ML Lactobacillus Rhamnosus (Culturelle) 1 cap BID 04/29/20 21:00 05/27/20 09:30 1 CAP Lactulose (Lactulose) 20 gm PRN 1X PRN 05/03/20 13:45 05/13/20 16:48 DC 05/12/20 15:41 20 GM Lidocaine HCl (Buffered Lidocaine 1%) 6 ml 1X ONCE 05/20/20 11:00 05/20/20 11:01 DC 05/20/20 11:22 3 ML Linagliptin (Tradjenta) 5 mg DAILY 04/27/20 09:00 05/27/20 09:30 5 MG Loperamide HCl (Imodium) 4 mg PRN TID PRN 05/17/20 22:30 05/22/20 07:58 4 MG Lorazepam (Ativan) 1 mg PRN Q8HRS PRN 05/18/20 22:15 05/25/20 00:17 1 MG Magnesium Sulfate 50 ml @ 25 mls/hr PRN DAILY PRN 05/11/20 14:15 Montelukast Sodium (Singulair) 10 mg HS 04/27/20 21:00 04/30/20 08:57 DC 04/29/20 19:57 10 MG Multivitamins (Thera M Plus) 1 tab DAILY 04/27/20 09:00 05/27/20 09:31 1 TAB Non-Formulary Medication (Gabapentin ) 600 mg HS 04/27/20 21:00 UNV Nystatin (Nystop) 1 jackie BID 05/08/20 21:00 UNV Ondansetron HCl (Zofran Odt) 4 mg PRN Q6HRS PRN 04/28/20 12:15 05/25/20 16:31 4 MG Ondansetron HCl (Zofran) 4 mg PRN Q8HRS PRN 04/26/20 22:45 04/27/20 22:44 DC Pantoprazole Sodium (PROTONIX VIAL for IV PUSH) 40 mg DAILY 05/02/20 09:00 05/07/20 15:25 DC 05/07/20 08:22 40 MG Pantoprazole Sodium (Protonix) 40 mg DAILYAC 05/08/20 07:30 05/27/20 06:02 40 MG Polyethylene Glycol (miraLAX PACKET) 34 gm PRN BID PRN 05/13/20 18:00 05/26/20 08:25 34 GM Potassium Chloride/Water 100 ml @ 100 mls/hr Q1H 05/01/20 15:00 05/01/20 18:59 DC 05/01/20 19:55 100 MLS/HR Potassium Chloride (Klor-Con) 20 meq DAILYWBKFT 05/02/20 08:00 05/27/20 09:31 20 MEQ Remdesivir 100 mg/ Sodium Chloride 230 ml @ 460 mls/hr Q24H 04/29/20 14:00 05/02/20 14:29 DC 05/02/20 14:27 460 MLS/HR Remdesivir 200 mg/ Sodium Chloride 210 ml @ 210 mls/hr 1X ONCE 04/28/20 14:00 04/28/20 14:59 DC 04/28/20 15:39 210 MLS/HR Sevelamer Carbonate (Renvela) 1,600 mg TIDWMEALS 05/02/20 17:00 05/27/20 09:31 1,600 MG Simethicone (Gas-X) 80 mg PRN AFTMEALHC PRN 05/10/20 15:30 05/25/20 16:31 80 MG Sodium Bicarbonate (Sodium Bicarb Adult 8.4% Syr) 50 meq 1X ONCE 05/19/20 16:30 05/19/20 16:34 DC 05/19/20 16:51 50 MEQ Sodium Chloride 1,000 ml @ 400 mls/hr Q2H30M PRN 05/24/20 08:00 05/24/20 19:59 DC Sodium Chloride (Normal Saline Flush) 10 ml 1X PRN PRN 05/24/20 08:00 05/25/20 07:59 DC Sterile Water (WATER for RESP) 1,000 ml CONT PRN 04/30/20 20:30 05/18/20 23:51 1,000 ML Temazepam (Restoril) 15 mg PRN QHS PRN 05/13/20 18:00 05/26/20 22:58 15 MG Torsemide (Demadex) 40 mg [id number] 04/27/20 09:00 05/27/20 09:29 40 MG Vitamin B Complex/ Vitamin C (Kelly-Jalen) 1 tab DAILY 04/29/20 14:00 05/27/20 09:31 1 TAB Vitamin D (Vitamin D3) 500 unit DAILY 04/28/20 13:00 04/30/20 08:57 DC 04/30/20 08:10 500 UNIT Zinc Sulfate (Orazinc) 220 mg DAILY 04/28/20 13:00 05/27/20 09:31 220 MG Lab Laboratory Tests Test 05/26/20 11:28 05/26/20 16:30 05/26/20 20:56 05/27/20 07:28 Glucose (Fingerstick) 230 mg/dL (70-99) 190 mg/dL (70-99) 248 mg/dL (70-99) 212 mg/dL (70-99) Results All relevant outside records, renal labs, imaging studies, telemetry/EKG's were reviewed. Justicifation of Admission Dx: Justifications for Admission: Justification of Admission Dx: N/A FLORINA TRONCOSO MD May 27, 2020 10:55
[2020-05-27] MEDS ORDERED: DIALYSIS PATIENT. MC PRN (11:00)
[2020-05-27] MEDS ORDERED: IV NORMAL SALINE 1000ML BAG 1,000 ML IV PRN (11:00)
[2020-05-27] MEDS ORDERED: ALBUMIN HUMAN 25% 200 ML IV PRN (11:00)
--- NOTE | 2020-05-27 12:19 | PDOC ---
PULMONARY PROGRESS NOTES DATE: 05/27/20 TIME: 12:18 Subjective Patient is lethargic on examination, currently on 100% nonrebreather Seen while on hemodialysis AFebrile overnight Vitals Vital Signs Date Time Temp Pulse Resp B/P (MAP) Pulse Ox O2 Delivery O2 Flow Rate FiO2 05/27/20 10:36 97.9 93 22 152/52 (85) 100 NonRebreather Mask 15.0 97.9 ROS: No Nausea, No Chest Pain, No Abdominal Pain, No Increase Cough General: Lethargic Lungs: Crackles, Other Cardiovascular: S1, S2 Abdomen: Soft, Non-tender, Other (obese) Skin: Warm, Dry Labs Laboratory Tests Test 05/25/20 16:27 05/25/20 20:01 05/26/20 07:18 05/26/20 11:28 Glucose (Fingerstick) 212 mg/dL (70-99) 242 mg/dL (70-99) 214 mg/dL (70-99) 230 mg/dL (70-99) Test 05/26/20 16:30 05/26/20 20:56 05/27/20 07:28 Glucose (Fingerstick) 190 mg/dL (70-99) 248 mg/dL (70-99) 212 mg/dL (70-99) Laboratory Tests Test 05/26/20 16:30 05/26/20 20:56 05/27/20 07:28 Glucose (Fingerstick) 190 mg/dL (70-99) 248 mg/dL (70-99) 212 mg/dL (70-99) Medications Active Scripts Medications Dose Route/Sig Max Daily Dose Days Date Category Dose Instructions Gabapentin 600 Mg Tablet 600 Mg PO HS 04/27/20 Reported Gabapentin (Gabapentin) 300 Mg Capsule 300 Mg PO DAILY 04/27/20 Reported Lantus Solostar (Insulin Glargine,Hum.rec.anlog) 100 Unit/1 Ml Insuln.pen 75 Unit SQ BID 09/19/19 Reported Januvia (Sitagliptin Phosphate) 25 Mg Tablet 25 Mg PO DAILY 09/19/19 Reported Novolog (Insulin Aspart) 100 Unit/1 Ml Cartridge 0 SQ TIDAC 01/26/19 Reported Sliding scale; patient has printout (at home) of scale. Unknown at this time. Singulair Tablet (Montelukast Sodium) 10 Mg Tablet 10 Mg PO HS 11/24/18 Reported Atorvastatin Calcium 40 Mg Tablet 1 Tab PO QHS 11/24/18 Reported Torsemide 20 Mg Tablet 2 Tab PO BID 11/24/18 Reported Cymbalta (Duloxetine Hcl) 30 Mg Capsule.dr Pressley Cap PO BID 11/24/18 Reported Daily Jalen (Multivitamin) 1 Each Tablet 1 Each PO DAILY 11/24/18 Reported Comments CXR 05/20 IMPRESSION: Slightly improved diffuse bilateral opacities. CTA chest IMPRESSION: 1. No evidence of pulmonary thromboembolic disease. 2. Multifocal bilateral groundglass opacities and consolidations, consistent with patient's history of infection. 3. Dilated pulmonary trunk, which can be seen with pulmonary hypertension. Impression . IMPRESSION: 1. Acute hypoxemic respiratory failure secondary to COVID-19 viral pneumonia./ ALI/ARDS-- 2. COVID-[address] angiogram, no evidence of pulmonary embolism. 4. Chronic kidney disease, previously peritoneal dialysis, now HD 5. Morbid obesity. 6. Obstructive sleep apnea. 7. Hyperlipidemia. 8. Hypertension. Plan . PLAN: Continue supplemental oxygen to keep oxygen saturations 90%, currently on 100% nonrebreather Follow CXR/ABG--obtain ABG today to rule out hypercarbia Pt. has completed full course of steroids monitor off ABX Pt. has completed Full course of remdesivir Follow nephrology recommendations now on HD, Continue PPN for nutritional support Physical therapy/Occupational Therapy DVT/GI prophylaxis Discussed with RN patient is a DNR/DNI ESSENCE HERNANDEZ MD May 27, 2020 12:19
--- NOTE | 2020-05-27 14:25 | NUR ---
SS following up with discharge planning. SS reviewed pt chart and discussed with pt RN. Pt is currently on 15 liter non-rebreather mask. COVID19 recovered now. Per RN, pt continues to have respiratory issues and unable to titrate at this time. Dialysis today. Pt on PPN and confused. [facility] denied pt for LTACH. Appeal in process and peer to peer requested. Pt's daughter coming at 1730 to sign AOR form for appeal. Form left on chart for daughter to sign. SS will continue to follow for discharge planning.
[2020-05-27 15:05] LABS: BASE EXCESS COOX 4 mmol/L (-3-3); HCO3 COOX 31 mmol/L (21-28); METHEMOGLOBIN 0.1 % (0.0-1.9); PCO2 COOX 58 mmHg (35-46); PO2 COOX 101 mmHg (75-108); SAT O2 COOX 97 % (92-99)
[2020-05-27] MEDS: AMINO AC 3%/ELECTROLYTE/GLYCER 1,000 ML IV SCH (15:21)
[2020-05-27 15:53] VITALS: BP 145/78
[2020-05-27 18:42] VITALS: BP 105/60
--- NOTE | 2020-05-27 19:25 | NUR ---
Assessment completed vss poc explained pt in bed hallucinating, pt reoriented to surroundings call light i n reach will resume care,
[2020-05-27] MEDS: GABAPENTIN 300 MG CAPSULE. PO SCH (20:36)
[2020-05-27] MEDS: TEMAZEPAM 15 MG CAPSULE PO PRN (22:35)
[2020-05-27] MEDS: SIMETHICONE 80 MG TAB.CHEW PO PRN (22:35)
[2020-05-27 22:38] VITALS: BP 138/64
[2020-05-28] MEDS: AMINO AC 3%/ELECTROLYTE/GLYCER 1,000 ML IV SCH ×2 (03:57→20:22)
[2020-05-28] MEDS: PANTOPRAZOLE 40 MG TABLET.DR. PO SCH (05:57)
[2020-05-28 07:00] VITALS: BP 138/60
[2020-05-28] MEDS: POTASSIUM CHLORIDE 20 MEQ TABLET.ER. PO SCH (08:00)
[2020-05-28] MEDS ORDERED: INSULIN LISPRO 300 UNITS/3 ML VIAL. SQ PRN (08:45)
--- NOTE | 2020-05-28 08:55 | PDOC ---
Provider Note Date of Service: DATE: 05/28/20 TIME: 08:54 Provider Note status same, will tweak florencia , follow if she gets off ppn, placement in progress, no call yet Justifications for Admission Other Justification VERNA GARCIA MD May 28, 2020 08:55
--- NOTE | 2020-05-28 09:13 | PDOC ---
DATE OF SERVICE DATE: 05/28/20 TIME: 09:13 SUBJECTIVE ROS remains on Nonrebreather OBJECTIVE Vital Signs Vital Signs Date Time Temp Pulse Resp B/P (MAP) Pulse Ox O2 Delivery O2 Flow Rate FiO2 05/28/20 07:00 99.3 89 22 138/60 (86) 100 nonrebreather at 5l/NC @10L 99.3 05/28/20 02:55 15.0 I & 0 Intake and Output 05/28/20 07:00 Intake Total 300 ml Output Total 600 ml Balance -300 ml Intake Oral 300 ml Output Urine Total 600 ml # Bowel Movements 1 PHYSICAL EXAM Physical Exam General Appearance: NAD HEEN On nonrebreather mask neck supple Lungs : decreased breath sounds, non labored Heart: S1S2 Abdomen: soft, obese , PD cath in place Extremities: Edema mild Neurology: alert, oriented DIAGNOSIS/ASSESSMENT Assessment & Plan ESRD - switched from PD to HD , has been getting Hd qd since 05/20 to 05/25 , dialyzed yesterday with UF Acute hypoxemic respiratory failure secondary to COVID-19 viral pneumonia./ ALI/ARDS- No recent CxR - last 05/20 reported stable infiltrates She has completed full course of steroids and remdesivir COVID-[address] angiogram, no evidence of pulmonary embolism. Morbid obesity. Obstructive sleep apnea. COMMENT/RELEVANT DATA Meds Current Medications Medications (Trade) Dose Ordered Sig/Mya Start Time Stop Time Status Last Admin Dose Admin Acetaminophen (Tylenol) 650 mg PRN Q4HRS PRN 04/27/20 23:15 05/26/20 08:26 650 MG Albumin Human 200 ml @ 200 mls/hr 1X PRN PRN 05/27/20 11:00 05/27/20 16:59 DC Amino Acids/ Glycerin/ Electrolytes 1,000 ml @ 80 mls/hr [id number] 05/23/20 11:45 05/28/20 03:57 80 MLS/HR Ascorbic Acid (Vitamin C) 1,000 mg DAILY 04/28/20 13:00 04/30/20 08:57 DC 04/30/20 08:11 1,000 MG Atorvastatin Calcium (Lipitor) 40 mg QHS 04/27/20 21:00 04/30/20 08:57 DC 04/29/20 19:57 40 MG Atropine Sulfate (ATROPINE 0.5mg SYRINGE) 0.5 mg PRN Q5MIN PRN 05/19/20 09:45 05/21/20 16:18 DC Azithromycin 250 ml @ 250 mls/hr 1X ONCE 04/26/20 23:00 04/26/20 23:59 DC 04/26/20 23:18 250 MLS/HR Bisacodyl (Dulcolax Supp) 10 mg PRN DAILY PRN 05/26/20 17:45 05/26/20 17:55 10 MG Carvedilol (Coreg) 25 mg BIDWMEALS 05/01/20 17:00 05/27/20 15:17 25 MG Ceftriaxone Sodium (Rocephin) 1 gm Q24H 04/28/20 13:00 05/03/20 09:20 DC 05/02/20 12:20 1 GM Cyclobenzaprine HCl (Flexeril) 10 mg PRN QID PRN 04/28/20 21:00 05/26/20 08:25 10 MG Dexamethasone (Decadron) 4 mg DAILYWBKFT 05/04/20 08:00 05/06/20 08:33 DC 05/06/20 08:15 4 MG Dexmedetomidine HCl 400 mcg/ Sodium Chloride 100 ml @ 6.99 mls/hr CONT PRN 05/19/20 09:45 05/21/20 16:18 DC 05/21/20 10:38 6.99 MLS/HR Dextrose (Dextrose 50%-Water Syringe) 12.5 gm PRN Q15MIN PRN 04/27/20 04:00 05/03/20 18:50 25 GM Dicyclomine HCl (Bentyl) 10 mg PRN TID PRN 05/18/20 22:15 05/26/20 08:26 10 MG Docusate Sodium (Colace) 100 mg BID 05/01/20 12:45 05/13/20 18:00 DC 05/13/20 09:01 100 MG Doxycycline Hyclate (Vibra-Tab) 100 mg BID 04/28/20 13:00 05/03/20 09:20 DC 05/03/20 08:36 100 MG Duloxetine HCl (Cymbalta) 30 mg BID 04/27/20 09:00 05/27/20 20:37 30 MG Enoxaparin Sodium (Lovenox 30mg Syringe) 30 mg Q24H 04/28/20 13:00 04/28/20 12:38 DC Fluconazole (Diflucan) 200 mg DAILY08 05/26/20 12:00 06/01/20 08:01 05/27/20 15:17 200 MG Gabapentin (Neurontin) 600 mg QHS 04/27/20 04:30 05/27/20 20:36 600 MG Heparin Sodium (Porcine) (Heparin Sodium) 2,500 unit 1X ONCE 05/20/20 11:00 05/20/20 11:01 DC 05/20/20 11:26 2,500 UNIT Info (CONTRAST GIVEN -- Rx MONITORING) 1 each PRN DAILY PRN 04/26/20 20:45 04/28/20 20:44 DC Info (PHARMACY MONITORING -- do not chart) 1 each PRN DAILY PRN 05/27/20 11:00 Insulin Glargine (Lantus Syringe) 65 unit DAILY 05/28/20 09:00 Insulin Human Lispro (HumaLOG) 10 units PRN BFRMEALHC PRN 05/28/20 08:45 Iohexol (Omnipaque 350 Mg/ml) 100 ml 1X ONCE 04/26/20 20:45 04/26/20 20:46 DC 04/26/20 21:20 100 ML Lactobacillus Rhamnosus (Culturelle) 1 cap BID 04/29/20 21:00 05/27/20 20:36 1 CAP Lactulose (Lactulose) 20 gm PRN 1X PRN 05/03/20 13:45 05/13/20 16:48 DC 05/12/20 15:41 20 GM Lidocaine HCl (Buffered Lidocaine 1%) 6 ml 1X ONCE 05/20/20 11:00 05/20/20 11:01 DC 05/20/20 11:22 3 ML Linagliptin (Tradjenta) 5 mg DAILY 04/27/20 09:00 05/27/20 15:16 5 MG Loperamide HCl (Imodium) 4 mg PRN TID PRN 05/17/20 22:30 05/22/20 07:58 4 MG Lorazepam (Ativan) 1 mg PRN Q8HRS PRN 05/18/20 22:15 05/25/20 00:17 1 MG Magnesium Sulfate 50 ml @ 25 mls/hr PRN DAILY PRN 05/11/20 14:15 Montelukast Sodium (Singulair) 10 mg HS 04/27/20 21:00 04/30/20 08:57 DC 04/29/20 19:57 10 MG Multivitamins (Thera M Plus) 1 tab DAILY 04/27/20 09:00 05/27/20 15:17 1 TAB Non-Formulary Medication (Gabapentin ) 600 mg HS 04/27/20 21:00 UNV Nystatin (Nystop) 1 jackie BID 05/08/20 21:00 UNV Ondansetron HCl (Zofran Odt) 4 mg PRN Q6HRS PRN 04/28/20 12:15 05/25/20 16:31 4 MG Ondansetron HCl (Zofran) 4 mg PRN Q8HRS PRN 04/26/20 22:45 04/27/20 22:44 DC Pantoprazole Sodium (PROTONIX VIAL for IV PUSH) 40 mg DAILY 05/02/20 09:00 05/07/20 15:25 DC 05/07/20 08:22 40 MG Pantoprazole Sodium (Protonix) 40 mg DAILYAC 05/08/20 07:30 05/28/20 05:57 40 MG Polyethylene Glycol (miraLAX PACKET) 34 gm PRN BID PRN 05/13/20 18:00 05/26/20 08:25 34 GM Potassium Chloride/Water 100 ml @ 100 mls/hr Q1H 05/01/20 15:00 05/01/20 18:59 DC 05/01/20 19:55 100 MLS/HR Potassium Chloride (Klor-Con) 20 meq DAILYWBKFT 05/02/20 08:00 05/27/20 15:16 20 MEQ Remdesivir 100 mg/ Sodium Chloride 230 ml @ 460 mls/hr Q24H 04/29/20 14:00 05/02/20 14:29 DC 05/02/20 14:27 460 MLS/HR Remdesivir 200 mg/ Sodium Chloride 210 ml @ 210 mls/hr 1X ONCE 04/28/20 14:00 04/28/20 14:59 DC 04/28/20 15:39 210 MLS/HR Sevelamer Carbonate (Renvela) 1,600 mg TIDWMEALS 05/02/20 17:00 05/26/20 17:00 1,600 MG Simethicone (Gas-X) 80 mg PRN AFTMEALHC PRN 05/10/20 15:30 05/27/20 22:35 80 MG Sodium Bicarbonate (Sodium Bicarb Adult 8.4% Syr) 50 meq 1X ONCE 05/19/20 16:30 05/19/20 16:34 DC 05/19/20 16:51 50 MEQ Sodium Chloride 1,000 ml @ 1,000 mls/hr Q1H PRN 05/27/20 11:00 05/27/20 16:59 DC Sodium Chloride (Normal Saline Flush) 10 ml 1X PRN PRN 05/24/20 08:00 05/25/20 07:59 DC Sterile Water (WATER for RESP) 1,000 ml CONT PRN 04/30/20 20:30 05/18/20 23:51 1,000 ML Temazepam (Restoril) 15 mg PRN QHS PRN 05/13/20 18:00 05/27/20 22:35 15 MG Torsemide (Demadex) 40 mg [id number] 04/27/20 09:00 05/27/20 15:16 40 MG Vitamin B Complex/ Vitamin C (Kelly-Jalen) 1 tab DAILY 04/29/20 14:00 05/27/20 15:17 1 TAB Vitamin D (Vitamin D3) 500 unit DAILY 04/28/20 13:00 04/30/20 08:57 DC 04/30/20 08:10 500 UNIT Zinc Sulfate (Orazinc) 220 mg DAILY 04/28/20 13:00 05/27/20 15:16 220 MG Lab Laboratory Tests Test 05/27/20 14:55 05/27/20 16:36 05/27/20 20:33 05/28/20 07:35 O2 Saturation 97 % (92-99) Arterial Blood pH 7.34 (7.35-7.45) Arterial Blood pCO2 at Patient Temp 58 mmHg (35-46) Arterial Blood pO2 at Patient Temp 101 mmHg (75-108) Arterial Blood HCO3 31 mmol/L (21-28) Arterial Blood Base Excess 4 mmol/L (-3-3) Oxyhemoglobin 97.0 % Methemoglobin 0.1 % (0.0-1.9) Carbon Monoxide, Quantitative 0.1 % (0.0-1.9) FiO2 100 Glucose (Fingerstick) 159 mg/dL (70-99) 201 mg/dL (70-99) 166 mg/dL (70-99) Results All relevant outside records, renal labs, imaging studies, telemetry/EKG's were reviewed. Justicifation of Admission Dx: Justifications for Admission: Justification of Admission Dx: N/A FLORINA TRONCOSO MD May 28, 2020 09:13
[2020-05-28] MEDS: FLUCONAZOLE 100 MG TABLET. PO SCH (09:25)
[2020-05-28] MEDS: LACTOBACILLUS RHAMNOSUS GG 1 CAPSULE. PO SCH ×3 (09:25→21:00)
[2020-05-28] MEDS: FOLIC/VIT B COMP W-C (RENAL) TABLET. PO SCH (09:25)
[2020-05-28] MEDS: MULTIVITAMIN with MINERAL TABLET. PO SCH (09:26)
[2020-05-28] MEDS: TORSEMIDE 20 MG TABLET. PO SCH ×2 (09:26→16:00)
[2020-05-28] MEDS: DULoxetine HCL 30 MG CAPSULE.DR PO SCH ×3 (09:26→21:00)
[2020-05-28] MEDS: CYCLOBENZAPRINE 10 MG TABLET. PO PRN (09:26)
[2020-05-28] MEDS: SEVELAMER CARBONATE 800 MG TABLET. PO SCH ×3 (09:26→17:00)
[2020-05-28] MEDS: ZINC SULFATE 220 MG CAPSULE. PO SCH (09:26)
[2020-05-28] MEDS: LINAGLIPTIN 5 MG TABLET PO SCH (09:26)
[2020-05-28] MEDS: CARVEDILOL 12.5 MG TABLET. PO SCH ×2 (09:27→17:00)
[2020-05-28] MEDS: NYSTATIN TOPICAL POWDER 15GM BOTTLE. TP SCH ×2 (09:27→20:20)
--- NOTE | 2020-05-28 09:28 | PDOC ---
PULMONARY PROGRESS NOTES DATE: 05/28/20 TIME: 09:26 Subjective Patient is more awake today On 10 liters N/C and additional 5 liters simple mask Hypoxia with eating low grade fever overnight Vitals Vital Signs Date Time Temp Pulse Resp B/P (MAP) Pulse Ox O2 Delivery O2 Flow Rate FiO2 05/28/20 07:00 99.3 89 22 138/60 (86) 100 nonrebreather at 5l/NC @10L 99.3 05/28/20 02:55 15.0 ROS: No Nausea, No Chest Pain, No Abdominal Pain, No Increase Cough General: Alert, Lethargic Lungs: Crackles Cardiovascular: S1, S2 Abdomen: Soft, Non-tender, Other (obese) Skin: Warm, Dry Labs Laboratory Tests Test 05/26/20 11:28 05/26/20 16:30 05/26/20 20:56 05/27/20 07:28 Glucose (Fingerstick) 230 mg/dL (70-99) 190 mg/dL (70-99) 248 mg/dL (70-99) 212 mg/dL (70-99) Test 05/27/20 14:55 05/27/20 16:36 05/27/20 20:33 05/28/20 07:35 O2 Saturation 97 % (92-99) Arterial Blood pH 7.34 (7.35-7.45) Arterial Blood pCO2 at Patient Temp 58 mmHg (35-46) Arterial Blood pO2 at Patient Temp 101 mmHg (75-108) Arterial Blood HCO3 31 mmol/L (21-28) Arterial Blood Base Excess 4 mmol/L (-3-3) Oxyhemoglobin 97.0 % Methemoglobin 0.1 % (0.0-1.9) Carbon Monoxide, Quantitative 0.1 % (0.0-1.9) FiO2 100 Glucose (Fingerstick) 159 mg/dL (70-99) 201 mg/dL (70-99) 166 mg/dL (70-99) Laboratory Tests Test 05/27/20 14:55 05/27/20 16:36 05/27/20 20:33 05/28/20 07:35 O2 Saturation 97 % (92-99) Arterial Blood pH 7.34 (7.35-7.45) Arterial Blood pCO2 at Patient Temp 58 mmHg (35-46) Arterial Blood pO2 at Patient Temp 101 mmHg (75-108) Arterial Blood HCO3 31 mmol/L (21-28) Arterial Blood Base Excess 4 mmol/L (-3-3) Oxyhemoglobin 97.0 % Methemoglobin 0.1 % (0.0-1.9) Carbon Monoxide, Quantitative 0.1 % (0.0-1.9) FiO2 100 Glucose (Fingerstick) 159 mg/dL (70-99) 201 mg/dL (70-99) 166 mg/dL (70-99) Medications Active Scripts Medications Dose Route/Sig Max Daily Dose Days Date Category Dose Instructions Gabapentin 600 Mg Tablet 600 Mg PO HS 04/27/20 Reported Gabapentin (Gabapentin) 300 Mg Capsule 300 Mg PO DAILY 04/27/20 Reported Lantus Solostar (Insulin Glargine,Hum.rec.anlog) 100 Unit/1 Ml Insuln.pen 75 Unit SQ BID 09/19/19 Reported Januvia (Sitagliptin Phosphate) 25 Mg Tablet 25 Mg PO DAILY 09/19/19 Reported Novolog (Insulin Aspart) 100 Unit/1 Ml Cartridge 0 SQ TIDAC 01/26/19 Reported Sliding scale; patient has printout (at home) of scale. Unknown at this time. Singulair Tablet (Montelukast Sodium) 10 Mg Tablet 10 Mg PO HS 11/24/18 Reported Atorvastatin Calcium 40 Mg Tablet 1 Tab PO QHS 11/24/18 Reported Torsemide 20 Mg Tablet 2 Tab PO BID 11/24/18 Reported Cymbalta (Duloxetine Hcl) 30 Mg Capsule.dr 1 Cap PO BID 11/24/18 Reported Daily Jalen (Multivitamin) 1 Each Tablet 1 Each PO DAILY 11/24/18 Reported Comments CXR 05/20 IMPRESSION: Slightly improved diffuse bilateral opacities. CTA chest IMPRESSION: 1. No evidence of pulmonary thromboembolic disease. 2. Multifocal bilateral groundglass opacities and consolidations, consistent with patient's history of infection. 3. Dilated pulmonary trunk, which can be seen with pulmonary hypertension. Impression . IMPRESSION: 1. Acute hypoxemic respiratory failure secondary to COVID-19 viral pneumonia./ ALI/ARDS-- 2. COVID-[address] angiogram, no evidence of pulmonary embolism. 4. Chronic kidney disease, previously peritoneal dialysis, now HD 5. Morbid obesity. 6. Obstructive sleep apnea. 7. Hyperlipidemia. 8. Hypertension. Plan . PLAN: Continue supplemental oxygen to keep oxygen saturations 90%, 10 lites N/C and additional 5 liters simple mask Follow CXR/ABG-- Pt. has completed full course of steroids monitor off ABX Pt. has completed Full course of remdesivir Follow nephrology recommendations now on HD, Continue PPN for nutritional support, in addition to po intake as tolerated Physical therapy/Occupational Therapy DVT/GI prophylaxis Discussed with RN patient is a DNR/DNI RAFAL SINHA MD May 28, 2020 09:28
[2020-05-28] MEDS: HEPARIN for SUB-Q USE 5,000 UNIT/ML VIAL. SQ SCH ×2 (09:31→20:26)
[2020-05-28] MEDS: INSULIN GLARGINE SYRINGE. SQ SCH (09:34)
[2020-05-28 11:00] VITALS: BP 113/55
--- NOTE | 2020-05-28 11:46 | NUR ---
SS following up with discharge planning. SS reviewed pt chart and discussed with pt RN. Pt is currently on non rebreather at 15 liters. COVID19 recovered. Pt on PPN. Pt clinically accepted at [facility], ; fax [phone]. Pt's DPOA signed AOR form for insurance appeal. SS phoned and faxed AOR form to Dr. Andersen at his office, ; fax [phone], for signatures. SS will phone and fax AOR form with updates to [employer] once received from Dr. Andersen. SS will continue to follow for discharge planning.
--- NOTE | 2020-05-28 14:33 | RAD ---
CT HEAD INDICATION: Reason: continued AMS / Spl. Instructions: / History: COMPARISON: None Available. Exposure: One or more of the following individualized dose reduction techniques were utilized for thi s examination: 1. Automated exposure control 2. Adjustment of the mA and/or kV according to patient size 3. Use of iterative reconstruction technique TECHNIQUE: 5 mm contiguous axial images were obtained from the skull base to the vertex in both bone and soft tissue algorithm. FINDINGS: No abnormal attenuation within the brain parenchyma. No evidence of acute intracranial hemorrhage. No extra-axial fluid collections. No mass effect or midline shift. Ventricular size is appropriate. Basal cisterns are patent. No fractures identified.Aguilar-white differentiation is preserved.Globes and orbits are within normal l imits. Mild opacities in the mastoid air cells bilaterally. IMPRESSION: 1. No acute intracranial findings. 2. Mild opacification of the bilateral mastoid air cells could be fluid or otitis media. Electronically signed by: Bhavin Tran MD (05/28/2020 2:31 PM) [id number]
--- NOTE | 2020-05-28 15:01 | PDOC2 ---
NEUROLOGY CONSULT Date of Service DOS: DATE: 05/28/20 TIME: 14:50 Reason for Consult Reason for Consult: Altered mental status Referring Physician Referring Physician: Dr. Andersen Source Source: Caregiver (mother), Chart review History of Present Illness History of Present Illness The patient is a 55-year-old right-handed female admitted a month ago with Covid infection. She developed pneumonia with respiratory failure with component of adult respiratory distress syndrome. She had chronic kidney disease, previously on peritoneal dialysis, switched to hemodialysis here. There is no history of stroke, seizure, or head injury. Patient has had altered mental status for several days but is much worse in the past 24 hours. She is having hallucinations and not making sense when she speaks. She did have an abnormal blood gas yesterday. Past Medical History Cardiovascular: HTN, Hyperlipidemia Pulmonary: COPD, Other (Sleep apnea) CENTRAL NERVOUS SYSTEM: Periperal neuropathy GI: Other (Umbilical hernia) Heme/Onc: Anemia NOS Musculoskeletal: low back pain (Degenerative disc disease), Osteoarthritis Infectious disease: Other (MRSA) Renal/: Chronic renal failure (Dialysis), Urinary Incontinence Endocrine: Diabetes, Hyperparathyroidism Past Surgical History Past Surgical History: Tubal Ligation, Tonsillectomy, Other (Peritoneal dialysis catheter, bilateral carpal tunnel surgery, left meniscus repair, right foot) Family History Family History: No pertinent hx Social History Social History Single, disabled, no alcohol or tobacco Current Medications Current Medications Current Medications Sodium Chloride 1,000 ml @ 1,000 mls/hr 1X ONCE IV Last administered on 04/26/20at 19:17; Start 04/26/20 at 19:15; Stop 04/26/20 at 20:14; Status DC Iohexol (Omnipaque 350 Mg/ml) 100 ml 1X ONCE IV Last administered on 04/26/20at 21:20; Start 04/26/20 at 20:45; Stop 04/26/20 at 20:46; Status DC Info (CONTRAST GIVEN -- Rx MONITORING) 1 each PRN DAILY PRN MC SEE COMMENTS; Start 04/26/20 at 20:45; Stop 04/28/20 at 20:44; Status DC Ceftriaxone Sodium (Rocephin) 1 gm 1X ONCE IVP Last administered on 04/26/20at 23:18; Start 04/26/20 at 23:00; Stop 04/26/20 at 23:01; Status DC Azithromycin 250 ml @ 250 mls/hr 1X ONCE IV Last administered on 04/26/20at 23:18; Start 04/26/20 at 23:00; Stop 04/26/20 at 23:59; Status DC Ondansetron HCl (Zofran) 4 mg PRN Q8HRS PRN IV NAUSEA/VOMITING 1ST CHOICE; Start 04/26/20 at 22:45; Stop 04/27/20 at 22:44; Status DC Acetaminophen (Tylenol) 650 mg PRN Q4HRS PRN PO FEVER > 100.3'F Last administered on 04/27/20at 16:47; Start 04/26/20 at 22:45; Stop 04/27/20 at 22:44; Status DC Atorvastatin Calcium (Lipitor) 40 mg QHS PO Last administered on 04/29/20at 19:57; Start 04/27/20 at 21:00; Stop 04/30/20 at 08:57; Status DC Duloxetine HCl (Cymbalta) 30 mg BID PO Last administered on 05/28/20at 09:26; Start 04/27/20 at 09:00 Gabapentin (Neurontin) 300 mg DAILY PO ; Start 04/27/20 at 04:30; Status Cancel Montelukast Sodium (Singulair) 10 mg HS PO Last administered on 04/29/20at 19:57; Start 04/27/20 at 21:00; Stop 04/30/20 at 08:57; Status DC Torsemide (Demadex) 40 mg BID94 PO Last administered on 05/28/20at 09:26; Start 04/27/20 at 09:00 Non-Formulary Medication (Gabapentin ) 600 mg HS PO ; Start 04/27/20 at 21:00; Status UNV Insulin Human Lispro (HumaLOG) 25 units TIDWMEALS SQ Last administered on 04/29/20at 08:34; Start 04/27/20 at 08:00; Stop 04/29/20 at 08:56; Status DC Insulin Glargine (Lantus Syringe) 75 unit BID SQ Last administered on at 08:35; Start 04/27/20 at 09:00; Stop 04/29/20 at 08:56; Status DC Multivitamins (Thera M Plus) 1 tab DAILY PO Last administered on 05/28/20 09:26; Start 04/27/20 at 09:00 Linagliptin (Tradjenta) 5 mg DAILY PO Last administered on 05/28/20 09:26; Start 04/27/20 at 09:00 Gabapentin (Neurontin) 600 mg TID STAT PO ; Start 04/27/20 at 03:51; Stop 04/27/20 at 03:52; Status UNV Dextrose (Dextrose 50%-Water Syringe) 12.5 gm PRN Q15MIN PRN IV SEE COMMENTS Last administered on 05/03/20at 18:50; Start 04/27/20 at 04:00 Gabapentin (Neurontin) 600 mg QHS PO Last administered on 05/27/20 20:36; Start 04/27/20 at 04:30 Acetaminophen (Tylenol) 650 mg PRN Q4HRS PRN PEG MILD PAIN / TEMP > 100.3'F; Start 04/27/20 at 23:00; Status Cancel Acetaminophen (Tylenol) 650 mg PRN Q4HRS PRN PO MILD PAIN / TEMP > 100.3'F Last administered on 05/26/20 08:26; Start 04/27/20 at 23:15 Remdesivir 200 mg/ Sodium Chloride 210 ml @ 210 mls/hr 1X ONCE IV Last administered on 04/28/20at 15:39; Start 04/28/20 at 14:00; Stop 04/28/20 at 14:59; Status DC Remdesivir 100 mg/ Sodium Chloride 230 ml @ 460 mls/hr Q24H IV ; Start 04/29/20 at 14:00; Stop 05/02/20 at 14:29; Status Cancel Ondansetron HCl (Zofran Odt) 4 mg PRN Q6HRS PRN PO NAUSEA/VOMITING Last administered on 05/25/20 16:31; Start 04/28/20 at 12:15 Heparin Sodium (Porcine) (Heparin Sodium) 5,000 unit Q8HRS SQ Last administered on 05/18/20 05:45; Start 04/28/20 at 14:00; Stop 05/18/20 at 14:14; Status DC Dexamethasone (Decadron) 6 mg DAILYWBKFT PO Last administered on 05/03/20at 08:37; Start 04/29/20 at 08:00; Stop 05/03/20 at 10:09; Status DC Dexamethasone (Decadron) 6 mg 1X ONCE PO Last administered on 04/28/20at 12:34; Start 04/28/20 at 13:00; Stop 04/28/20 at 13:01; Status DC Enoxaparin Sodium (Lovenox 30mg Syringe) 30 mg Q24H SQ ; Start 04/28/20 at 13:00; Stop 04/28/20 at 12:38; Status DC Doxycycline Hyclate (Vibra-Tab) 100 mg BID PO Last administered on 05/03/20at 08:36; Start 04/28/20 at 13:00; Stop 05/03/20 at 09:20; Status DC Ceftriaxone Sodium (Rocephin) 1 gm Q24H IVP Last administered on 05/02/20at 12:20; Start 04/28/20 at 13:00; Stop 05/03/20 at 09:20; Status DC Zinc Sulfate (Orazinc) 220 mg DAILY PO Last administered on 05/28/20at 09:26; Start 04/28/20 at 13:00 Vitamin D (Vitamin D3) 500 unit DAILY PO Last administered on 04/30/20at 08:10; Start 04/28/20 at 13:00; Stop 04/30/20 at 08:57; Status DC Ascorbic Acid (Vitamin C) 1,000 mg DAILY PO Last administered on 04/30/20at 08:11; Start 04/28/20 at 13:00; Stop 04/30/20 at 08:57; Status DC Temazepam (Restoril) 15 mg PRN QHS PRN PO INSOMNIA Last administered on 04/28/20at 22:48; Start 04/28/20 at 21:00; Stop 04/29/20 at 06:48; Status DC Cyclobenzaprine HCl (Flexeril) 10 mg PRN QID PRN PO MUSCLE SPASMS Last adminis tered on 05/28/20at 09:26; Start 04/28/20 at 21:00 Insulin Glargine (Lantus Syringe) 85 unit BID SQ Last administered on at 20:39; Start 04/29/20 at 21:00; Stop 05/01/20 at 08:38; Status DC Insulin Human Lispro (HumaLOG) 30 units TIDWMEALS SQ Last administered on 05/03/20at 13:34; Start 04/29/20 at 12:00; Stop 05/03/20 at 19:55; Status DC Potassium Chloride (Klor-Con) 40 meq 1X ONCE PO Last administered on 04/29/20at 12:34; Start 04/29/20 at 12:30; Stop 04/29/20 at 12:31; Status DC Potassium Chloride (Klor-Con) 20 meq DAILYWBKFT PO Last administered on 04/30/20at 08:10; Start 04/30/20 at 08:00; Stop 04/30/20 at 08:57; Status DC Sevelamer Carbonate (Renvela) 800 mg TIDWMEALS PO Last administered on 05/02/20at 12:03; Start 04/29/20 at 17:00; Stop 05/02/20 at 12:44; Status DC Vitamin B Complex/ Vitamin C (Kelly-Jalen) 1 tab DAILY PO Last administered on 05/28/20at 09:25; Start 04/29/20 at 14:00 Remdesivir 100 mg/ Sodium Chloride 230 ml @ 460 mls/hr Q24H IV Last administered on 05/02/20at 14:27; Start 04/29/20 at 14:00; Stop 05/02/20 at 14:29; Status DC Lactobacillus Rhamnosus (Culturelle) 1 cap BID PO Last administered on 05/28/20at 09:25; Start 04/29/20 at 21:00 Potassium Chloride (Klor-Con) 20 meq 1X ONCE PO Last administered on 04/30/20at 14:40; Start 04/30/20 at 12:45; Stop 04/30/20 at 12:47; Status DC Sterile Water (WATER for RESP) 1,000 ml CONT PRN INH VIA VAPOTHERM DEVICE Last administered on 05/18/20at 23:51; Start 04/30/20 at 20:30 Insulin Glargine (Lantus Syringe) 75 unit BID SQ Last administered on 05/01/20at 20:52; Start 05/01/20 at 09:00; Stop 05/02/20 at 08:21; Status DC Carvedilol (Coreg) 25 mg BIDWMEALS PO Last administered on 05/28/20at 09:27; Start 05/01/20 at 17:00 Docusate Sodium (Colace) 100 mg PRN BID PRN PO HARD STOOLS; Start 05/01/20 at 12:45; Stop 05/01/20 at 12:45; Status DC Docusate Sodium (Colace) 100 mg BID PO Last administered on 05/13/20at 09:01; Start 05/01/20 at 12:45; Stop 05/13/20 at 18:00; Status DC Potassium Chloride/Water 100 ml @ 100 mls/hr Q1H IV Last administered on 05/01/20at 19:55; Start 05/01/20 at 15:00; Stop 05/01/20 at 18:59; Status DC Potassium Chloride (Klor-Con) 20 meq DAILYWBKFT PO Last administered on 05/28/20at 08:00; Start 05/02/20 at 08:00 Insulin Glargine (Lantus Syringe) 80 unit BID SQ Last administered on 05/03/20at 09:14; Start 05/02/20 at 09:00; Stop 05/03/20 at 19:55; Status DC Pantoprazole Sodium (PROTONIX VIAL for IV PUSH) 40 mg DAILY IVP Last administered on 05/07/20at 08:22; Start 05/02/20 at 09:00; Stop 05/07/20 at 15:25; Status DC Sevelamer Carbonate (Renvela) 1,600 mg TIDWMEALS PO Last administered on 05/28/20at 12:38; Start 05/02/20 at 17:00 Dexamethasone (Decadron) 4 mg DAILYWBKFT PO Last administered on 05/06/20at 08:15; Start 05/04/20 at 08:00; Stop 05/06/20 at 08:33; Status DC Lactulose (Lactulose) 20 gm 1X ONCE PO Last administered on 05/03/20at 15:32; Start 05/03/20 at 13:45; Stop 05/03/20 at 13:46; Status DC Lactulose (Lactulose) 20 gm PRN 1X PRN PO CONSTIPATION Last administered on 05/12/20at 15:41; Start 05/03/20 at 13:45; Stop 05/13/20 at 16:48; Status DC Insulin Glargine (Lantus Syringe) 60 unit BID SQ Last administered on 05/04/20at 22:04; Start 05/04/20 at 09:00; Stop 05/05/20 at 01:34; Status DC Insulin Human Lispro (HumaLOG) 15 units TIDAC SQ Last administered on 05/04/20at 07:49; Start 05/04/20 at 07:30; Stop 05/04/20 at 12:45; Status DC Insulin Glargine (Lantus Syringe) 60 unit 1X ONCE SQ Last administered on 05/04/20at 01:19; Start 05/04/20 at 01:15; Stop 05/04/20 at 01:16; Status DC Amino Acids/ Glycerin/ Electrolytes 1,000 ml @ 80 mls/hr [id number] IV Last administered on 05/07/20at 05:27; Start 05/04/20 at 10:15; Stop 05/07/20 at 12:31; Status DC Insulin Human Lispro (HumaLOG) 20 units 1X ONCE SQ Last administered on 05/04/20at 22:51; Start 05/04/20 at 22:45; Stop 05/04/20 at 22:46; Status DC Insulin Human Lispro (HumaLOG) 30 units 1X ONCE SQ Last administered on 05/05/20at 02:04; Start 05/05/20 at 01:45; Stop 05/05/20 at 01:47; Status DC Insulin Glargine (Lantus Syringe) 20 unit 1X ONCE SQ Last administered on 05/05/20at 02:04; Start 05/05/20 at 02:00; Stop 05/05/20 at 02:01; Status DC Insulin Glargine (Lantus Syringe) 80 unit BID SQ Last administered on 05/07/20at 08:25; Start 05/05/20 at 09:00; Stop 05/08/20 at 08:27; Status DC Insulin Human Lispro (HumaLOG) 20 units 1X ONCE SQ Last administered on 04/10 12/27at 03:37; Start 05/06/20 at 03:00; Stop 05/06/20 at 03:01; Status DC Insulin Human Lispro (HumaLOG) 20 units PRN BFRMEALHC PRN SQ Blood glucose > 200 mg/dL Last administered on 05/13/20at 09:05; Start 05/06/20 at 03:00; Stop 05/28/20 at 08:38; Status DC Pantoprazole Sodium (Protonix) 40 mg DAILYAC PO Last administered on 05/28/20at 05:57; Start 05/08/20 at 07:30 Insulin Glargine (Lantus Syringe) 80 unit DAILY SQ ; Start 05/08/20 at 09:00; Stop 05/09/20 at 09:06; Status DC Nystatin (Nystop) 1 jackie BID TP Last administered on 05/28/20at 09:27; Start 05/08/20 at 10:00 Nystatin (Nystop) 1 jackie BID TP ; Start 05/08/20 at 21:00; Status UNV Insulin Glargine (Lantus Syringe) 60 unit DAILY SQ Last administered on 05/12/20at 09:08; Start 05/10/20 at 09:00; Stop 05/13/20 at 08:25; Status DC Simethicone (Gas-X) 80 mg PRN AFTMEALHC PRN PO GAS / BLOATING, 1ST CHOICE Last administered on 05/27/20at 22:35; Start 05/10/20 at 15:30 Magnesium Sulfate 50 ml @ 25 mls/hr PRN DAILY PRN IV for Mag < 1.7 on am labs; Start 05/11/20 at 14:15 Insulin Glargine (Lantus Syringe) 70 unit DAILY SQ Last administered on 05/16/20at 08:26; Start 05/13/20 at 08:30; Stop 05/16/20 at 08:37; Status DC Polyethylene Glycol (miraLAX PACKET) 34 gm PRN BID PRN PO CONSTIPATION Last administered on 05/26/20at 08:25; Start 05/13/20 at 18:00 Temazepam (Restoril) 15 mg PRN QHS PRN PO INSOMNIA Last administered on 05/27/20at 22:35; Start 05/13/20 at 18:00 Insulin Glargine (Lantus Syringe) 75 unit DAILY SQ Last administered on 05/18/20at 08:39; Start 05/17/20 at 09:00; Stop 05/23/20 at 09:03; Status DC Loperamide HCl (Imodium) 4 mg PRN TID PRN PO DIARRHEA Last administered on 05/22/20at 07:58; Start 05/17/20 at 22:30 Sodium Chloride 1,000 ml @ 75 mls/hr [id number] ONCE IV Last administered on 05/18/20at 11:22; Start 05/18/20 at 11:15; Stop 05/19/20 at 00:34; Status DC Heparin Sodium (Porcine) (Heparin Sodium) 5,000 unit Q12HR SQ Last administered on 05/28/20at 09:31; Start 05/19/20 at 09:00 Dicyclomine HCl (Bentyl) 10 mg PRN TID PRN PO GAS / BLOATING Last administered on 05/26/20at 08:26; Start 05/18/20 at 22:15 Lorazepam (Ativan) 1 mg PRN Q8HRS PRN PO ANXIETY / AGITATION Last administered on 05/28/20at 09:26; Start 05/18/20 at 22:15 Dexmedetomidine HCl 400 mcg/ Sodium Chloride 100 ml @ 6.99 mls/hr CONT PRN IV PER PROTOCOL Last administered on 05/21/20at 10:38; Start 05/19/20 at 09:45; Stop 05/21/20 at 16:18; Status DC Sodium Chloride 500 ml @ 500 mls/hr 1X PRN PRN IV SEE COMMENTS; Start 05/19/20 at 09:45; Stop 05/21/20 at 16:18; Status DC Atropine Sulfate (ATROPINE 0.5mg SYRINGE) 0.5 mg PRN Q5MIN PRN IV SEE COMMENTS; Start 05/19/20 at 09:45; Stop 05/21/20 at 16:18; Status DC Sodium Bicarbonate (Sodium Bicarb Adult 8.4% Syr) 50 meq 1X ONCE IV Last administered on 05/19/20at 16:51; Start 05/19/20 at 16:30; Stop 05/19/20 at 16:34; Status DC Lidocaine HCl (Buffered Lidocaine 1%) 3 ml STK-MED ONCE .ROUTE ; Start 05/20/20 at 10:52; Stop 05/20/20 at 10:52; Status DC Heparin Sodium (Porcine) (Heparin Sodium) 10,000 unit STK-MED ONCE .ROUTE ; Start 05/20/20 at 10:52; Stop 05/20/20 at 10:52; Status DC Lidocaine HCl (Buffered Lidocaine 1%) 6 ml 1X ONCE INJ Last administered on 05/20/20at 11:22; Start 05/20/20 at 11:00; Stop 05/20/20 at 11:01; Status DC Heparin Sodium (Porcine) (Heparin Sodium) 2,500 unit 1X ONCE INT CAT Last administered on 05/20/20at 11:26; Start 05/20/20 at 11:00; Stop 05/20/20 at 11:01; Status DC Sodium Chloride 1,000 ml @ 1,000 mls/hr Q1H PRN IV hypotension; Start 05/20/20 at 13:00; Stop 05/20/20 at 18:59; Status DC Albumin Human 200 ml @ 200 mls/hr 1X PRN PRN IV Hypotension Last administered on 05/20/20at 13:48; Start 05/20/20 at 13:00; Stop 05/20/20 at 18:59; Status DC Sodium Chloride 1,000 ml @ 400 mls/hr Q2H30M PRN IV PATENCY; Start 05/20/20 at 13:00; Stop 05/21/20 at 00:59; Status DC Info (PHARMACY MONITORING -- do not chart) 1 each PRN DAILY PRN MC SEE COMMENTS; Start 05/20/20 at 13:00; Status Cancel Sodium Chloride 1,000 ml @ 1,000 mls/hr Q1H PRN IV hypotension; Start 05/21/20 at 07:45; Stop 05/21/20 at 13:44; Status DC Albumin Human 200 ml @ 200 mls/hr 1X PRN PRN IV Hypotension; Start 05/21/20 at 07:45; Stop 05/21/20 at 13:44; Status DC Sodium Chloride 1,000 ml @ 400 mls/hr Q2H30M PRN IV PATENCY; Start 05/21/20 at 07:45; Stop 05/21/20 at 19:44; Status DC Info (PHARMACY MONITORING -- do not chart) 1 each PRN DAILY PRN MC SEE COMMENTS; Start 05/21/20 at 07:45; Status UNV Info (PHARMACY MONITORING -- do not chart) 1 each PRN DAILY PRN MC SEE COMMENTS; Start 05/21/20 at 07:45; Status Cancel Sodium Chloride 1,000 ml @ 1,000 mls/hr Q1H PRN IV hypotension; Start 05/22/20 at 08:00; Stop 05/22/20 at 13:59; Status DC Albumin Human 200 ml @ 200 mls/hr 1X PRN PRN IV Hypotension Last administered on 05/22/20at 09:13; Start 05/22/20 at 08:00; Stop 05/22/20 at 13:59; Status DC Sodium Chloride (Normal Saline Flush) 10 ml 1X PRN PRN IV AP catheter pack; Start 05/22/20 at 08:00; Stop 05/23/20 at 07:59; Status DC Sodium Chloride (Normal Saline Flush) 10 ml 1X PRN PRN IV INVESTMENT FUND MANAGER catheter pack; Start 05/22/20 at 08:00; Stop 05/23/20 at 07:59; Status DC Sodium Chloride 1,000 ml @ 400 mls/hr Q2H30M PRN IV PATENCY; Start 05/22/20 at 08:00; Stop 05/22/20 at 19:59; Status DC Info (PHARMACY MONITORING -- do not chart) 1 each PRN DAILY PRN MC SEE COMMENTS; Start 05/22/20 at 08:00; Status UNV Info (PHARMACY MONITORING -- do not chart) 1 each PRN DAILY PRN MC SEE COMMENTS; Start 05/22/20 at 08:00; Status Cancel Sodium Chloride 1,000 ml @ 1,000 mls/hr Q1H PRN IV hypotension; Start 05/23/20 at 07:45; Stop 05/23/20 at 13:44; Status DC Albumin Human 200 ml @ 200 mls/hr 1X PRN PRN IV Hypotension; Start 05/23/20 at 07:45; Stop 05/23/20 at 13:44; Status DC Sodium Chloride 1,000 ml @ 400 mls/hr Q2H30M PRN IV PATENCY; Start 05/23/20 at 07:45; Stop 05/23/20 at 19:44; Status DC Info (PHARMACY MONITORING -- do not chart) 1 each PRN DAILY PRN MC SEE COMMENTS; Start 05/23/20 at 07:45; Status UNV Info (PHARMACY MONITORING -- do not chart) 1 each PRN DAILY PRN MC SEE COMMENTS; Start 05/23/20 at 07:45; Status Cancel Insulin Glargine (Lantus Syringe) 50 unit DAILY SQ Last administered on 05/26/20at 09:08; Start 05/23/20 at 10:00; Stop 05/27/20 at 08:29; Status DC Amino Acids/ Glycerin/ Electrolytes 1,000 ml @ 80 mls/hr [id number] IV Last administered on 05/28/20at 03:57; Start 05/23/20 at 11:45 Sodium Chloride 1,000 ml @ 1,000 mls/hr Q1H PRN IV hypotension; Start 05/24/20 at 08:00; Stop 05/24/20 at 13:59; Status DC Albumin Human 200 ml @ 200 mls/hr 1X PRN PRN IV Hypotension; Start 05/24/20 at 08:00; Stop 05/24/20 at 13:59; Status DC Sodium Chloride (Normal Saline Flush) 10 ml 1X PRN PRN IV AP catheter pack; Start 05/24/20 at 08:00; Stop 05/25/20 at 07:59; Status DC Sodium Chloride (Normal Saline Flush) 10 ml 1X PRN PRN IV INVESTMENT FUND MANAGER catheter pack; Start 05/24/20 at 08:00; Stop 05/25/20 at 07:59; Status DC Sodium Chloride 1,000 ml @ 400 mls/hr Q2H30M PRN IV PATENCY; Start 05/24/20 at 08:00; Stop 05/24/20 at 19:59; Status DC Info (PHARMACY MONITORING -- do not chart) 1 each PRN DAILY PRN MC SEE COMMENTS; Start 05/24/20 at 08:00; Status UNV Info (PHARMACY MONITORING -- do not chart) 1 each PRN DAILY PRN MC SEE COMMENTS; Start 05/24/20 at 08:00; Stop 05/28/20 at 10:33; Status DC Fluconazole (Diflucan) 200 mg DAILY08 PO Last administered on 05/28/20at 09:25; Start 05/26/20 at 12:00; Stop 06/01/20 at 08:01 Bisacodyl (Dulcolax Supp) 10 mg PRN DAILY PRN NV CONSTIPATION Last administered on 05/26/20at 17:55; Start 05/26/20 at 17:45 Insulin Glargine (Lantus Syringe) 60 unit DAILY SQ Last administered on 05/27/20at 09:36; Start 05/27/20 at 09:00; Stop 05/28/20 at 08:38; Status DC Sodium Chloride 1,000 ml @ 1,000 mls/hr Q1H PRN IV hypotension; Start 05/27/20 at 11:00; Stop 05/27/20 at 16:59; Status DC Albumin Human 200 ml @ 200 mls/hr 1X PRN PRN IV Hypotension; Start 05/27/20 at 11:00; Stop 05/27/20 at 16:59; Status DC Info (PHARMACY MONITORING -- do not chart) 1 each PRN DAILY PRN MC SEE COMMENTS; Start 05/27/20 at 11:00 Insulin Glargine (Lantus Syringe) 65 unit DAILY SQ Last administered on 05/28/20at 09:34; Start 05/28/20 at 09:00 Insulin Human Lispro (HumaLOG) 10 units PRN BFRMEALHC PRN SQ Blood glucose > 200 mg/dL; Start 05/28/20 at 08:45 Active Scripts Active Reported Renagel (Sevelamer Hcl) 800 Mg Tablet 2 Tab PO TID 30 Days Kelly-Jalen Rx Tablet (Vit B Cmplx 3/Fa/Vit C/Biotin) 1 Each Tablet 1 Tab PO DAILY MDD 1 Aspirin 81 Mg Tab.chew 1 Tab PO DAILY Coreg (Carvedilol) 25 Mg Tablet 25 Mg PO BIDWMEALS Vitamin C (Ascorbic Acid) 500 Mg Capsule.er 1,000 Mg PO DAILY08 D3-50 (Cholecalciferol (Vitamin D3)) 50,000 Unit Capsule 10,000 Unit PO DAILY08 Metolazone 5 Mg Tablet 5 Mg PO DAILY Gabapentin 600 Mg Tablet 600 Mg PO HS Gabapentin (Gabapentin) 300 Mg Capsule 300 Mg PO DAILY Lantus Solostar (Insulin Glargine,Hum.rec.anlog) 100 Unit/1 Ml Insuln.pen 75 Unit SQ BID Januvia (Sitagliptin Phosphate) 25 Mg Tablet 25 Mg PO DAILY Novolog (Insulin Aspart) 100 Unit/1 Ml Cartridge 0 SQ TIDAC Sliding scale; patient has printout (at home) of scale. Unknown at this time. Singulair Tablet (Montelukast Sodium) 10 Mg Tablet 10 Mg PO HS Atorvastatin Calcium 40 Mg Tablet 1 Tab PO QHS Torsemide 20 Mg Tablet 2 Tab PO BID Cymbalta (Duloxetine Hcl) 30 Mg Capsule.dr 1 Cap PO BID Daily Jalen (Multivitamin) 1 Each Tablet 1 Each PO DAILY Allergies Allergies: Coded Allergies: No Known Medication Allergies (Verified Allergy, Unknown, 05/23/20) morphine (Verified Adverse Reaction, Severe, Nausea and Vomiting, 07/14/19) ROS Review of System Negative for fever, chills, weight loss, shortness of breath, chest pain, indigestion, hematochezia, melena, and dysuria. Full 14-point review of systems is negative. Physical Exam Physical Examination General: Well-developed, well-nourished black female in no acute distress HEENT: Normocephalic andatraumatic. Temporal arteriespulsatile and nontender. Neck: Supple without bruit, no meningismus Musculoskeletal: Stability:see neurologic. Gait exam:see neurologic. Tone:see neurologic.Strength:see neurologic. Neurological: Mental Status: orientation, memory, attention span/concentration, language, fund of knowledge: Eyes closed, stirs a little bit to voice, does not verbalize or follow commands. Cranial Nerves:Pupils equal and reactive to light, ext raocular movements areintact. There is no facial asymmetry. All other cranial related problems are negative except as mentioned before.Reflexes:0-1+ and symmetric with silent plantar responses. Motor:Does have some spontaneous movement of all 4 extremities. Coordination and gait:Not testable. Sensory:Not testable. Vitals VITALS Vital Signs Date Time Temp Pulse Resp B/P (MAP) Pulse Ox O2 Delivery O2 Flow Rate FiO2 05/28/20 11:00 99.0 88 24 113/55 (74) 98 nonrebreather at 5l/NC @10L 99.0 05/28/20 08:00 10.0 Labs Labs Laboratory Tests Test 05/26/20 16:30 05/26/20 20:56 05/27/20 07:28 05/27/20 14:55 Glucose (Fingerstick) 190 mg/dL (70-99) 248 mg/dL (70-99) 212 mg/dL (70-99) O2 Saturation 97 % (92-99) Arterial Blood pH 7.34 (7.35-7.45) Arterial Blood pCO2 at Patient Temp 58 mmHg (35-46) Arterial Blood pO2 at Patient Temp 101 mmHg (75-108) Arterial Blood HCO3 31 mmol/L (21-28) Arterial Blood Base Excess 4 mmol/L (-3-3) Oxyhemoglobin 97.0 % Methemoglobin 0.1 % (0.0-1.9) Carbon Monoxide, Quantitative 0.1 % (0.0-1.9) FiO2 100 Test 05/27/20 16:36 05/27/20 20:33 05/28/20 07:35 05/28/20 11:50 Glucose (Fingerstick) 159 mg/dL (70-99) 201 mg/dL (70-99) 166 mg/dL (70-99) 184 mg/dL (70-99) Laboratory Tests Test 05/27/20 14:55 05/27/20 16:36 05/27/20 20:33 05/28/20 07:35 O2 Saturation 97 % (92-99) Arterial Blood pH 7.34 (7.35-7.45) Arterial Blood pCO2 at Patient Temp 58 mmHg (35-46) Arterial Blood pO2 at Patient Temp 101 mmHg (75-108) Arterial Blood HCO3 31 mmol/L (21-28) Arterial Blood Base Excess 4 mmol/L (-3-3) Oxyhemoglobin 97.0 % Methemoglobin 0.1 % (0.0-1.9) Carbon Monoxide, Quantitative 0.1 % (0.0-1.9) FiO2 100 Glucose (Fingerstick) 159 mg/dL (70-99) 201 mg/dL (70-99) 166 mg/dL (70-99) Test 05/28/20 11:50 Glucose (Fingerstick) 184 mg/dL (70-99) Images Images CT HEAD INDICATION: Reason: continued AMS / Spl. Instructions: / History: COMPARISON: None Available. Exposure: One or more of the following individualized dose reduction techniques were utilized for this examination: 1. Automated exposure control 2. Adjustment of the mA and/or kV according to patient size 3. Use of iterative reconstruction technique TECHNIQUE: 5 mm contiguous axial images were obtained from the skull base to the vertex in both bone and soft tissue algorithm. FINDINGS: No abnormal attenuation within the brain parenchyma. No evidence of acute intracranial hemorrhage. No extra-axial fluid collections. No mass effect or midline shift. Ventricular size is appropriate. Basal cisterns are patent. No fractures identified.Aguilar-white differentiation is preserved.Globes and orbits are within normal limits. Mild opacities in the mastoid air cells bilaterally. IMPRESSION: 1. No acute intracranial findings. 2. Mild opacification of the bilateral mastoid air cells could be fluid or otitis media. Assessment/Plan Assessment/Plan Impression: Metabolic encephalopathy, CT head negative Recommendation: Lab studies, see orders Further recommendations based on this Discussed with patient's mother Thank you for letting me help with the patients. SHANA CHAUDHARI MD May 28, 2020 15:00
[2020-05-28 15:16] LABS: BASO # 0.1 x10^3/uL (0.0-0.2); BASO % 1 % (0-3); EOS # 0.3 x10^3/uL (0.0-0.7); EOS % 4 % (0-3); HEMATOCRIT 25.8 % (36.0-47.0); HEMOGLOBIN 8.5 g/dL (12.0-15.5); LYMPH # 1.7 x10^3/uL (1.0-4.8); LYMPH % 21 % (24-48); MEAN CORPUSCULAR HEMOGLOBIN 32 pg (25-35); MEAN CORPUSCULAR HGB CONC 33 g/dL (31-37); MEAN CORPUSCULAR VOLUME 96 fL (79-100); MONO # 0.9 x10^3/uL (0.0-1.1); MONO % 12 % (0-9); NEUT % 62 % (31-73); PLATELET COUNT 199 x10^3/uL (140-400); RED BLOOD COUNT 2.69 x10^6/uL (3.50-5.40); RED CELL DISTRIBUTION WIDTH 16.4 % (11.5-14.5)
[2020-05-28 15:29] LABS: CREATININE 4.1 mg/dL (0.6-1.0); GFR 11.3; POTASSIUM 5.5 mmol/L (3.5-5.1)
[2020-05-28 15:30] VITALS: BP 142/65
[2020-05-28 15:51] LABS: BASE EXCESS ABG 1 mmol/L (-3-3); HCO3 ABG 28 mmol/L (21-28); PCO2 ABG 58 mmHg (35-46); PO2 ABG 64 mmHg (75-108); SAT O2 ABG 92 % (92-99)
[2020-05-28 15:54] LABS: % BANDS 5 % (0-9); % EOS 2 % (0-5); % LYMPHS 23 % (24-48); % MONOS 13 % (0-10); % SEGS 57 % (35-66)
[2020-05-28 15:55] LABS: ANISOCYTOSIS PRESENT; PLT ESTIMATE ADEQUATE (ADEQUATE); POLYCHROMASIA PRESENT
[2020-05-28 15:59] LABS: FIO2 ABG 60/5L NC + 5L NRB
--- NOTE | 2020-05-28 18:04 | NUR ---
Non adminsitered evening dose of Toresemide, Renvela due to patient being lethargic and not waking up enough to take anything by mouth. RT performed ABG's and change oxygen therapy to 40% venti mask.
[2020-05-28 19:17] VITALS: BP 154/59
[2020-05-28] MEDS: GABAPENTIN 300 MG CAPSULE. PO SCH ×2 (20:19→21:00)
[2020-05-28 22:23] VITALS: BP 164/82
--- NOTE | 2020-05-29 01:09 | NUR ---
Did not give HS PO meds as patient too lethargic and not safe to swallow.
[2020-05-29 02:28] VITALS: BP 152/73
[2020-05-29 07:00] VITALS: BP 133/69
[2020-05-29] MEDS: ZINC SULFATE 220 MG CAPSULE. PO SCH (08:41)
[2020-05-29] MEDS: FLUCONAZOLE 100 MG TABLET. PO SCH (08:41)
[2020-05-29] MEDS: PANTOPRAZOLE 40 MG TABLET.DR. PO SCH (08:41)
[2020-05-29] MEDS: FOLIC/VIT B COMP W-C (RENAL) TABLET. PO SCH (08:41)
[2020-05-29] MEDS: DULoxetine HCL 30 MG CAPSULE.DR PO SCH ×2 (08:41→20:13)
[2020-05-29] MEDS: AMINO AC 3%/ELECTROLYTE/GLYCER 1,000 ML IV SCH ×2 (08:41→17:24)
[2020-05-29] MEDS: SEVELAMER CARBONATE 800 MG TABLET. PO SCH ×3 (08:42→17:22)
[2020-05-29] MEDS: CARVEDILOL 12.5 MG TABLET. PO SCH ×2 (08:42→17:24)
[2020-05-29] MEDS: MULTIVITAMIN with MINERAL TABLET. PO SCH (08:42)
[2020-05-29] MEDS: LACTOBACILLUS RHAMNOSUS GG 1 CAPSULE. PO SCH ×2 (08:42→20:13)
[2020-05-29] MEDS: LINAGLIPTIN 5 MG TABLET PO SCH (08:43)
[2020-05-29] MEDS: NYSTATIN TOPICAL POWDER 15GM BOTTLE. TP SCH ×2 (08:51→20:14)
--- NOTE | 2020-05-29 08:52 | PDOC ---
Provider Note Date of Service: DATE: 05/29/20 TIME: 08:50 Provider Note vss, no temp, sleepy 05/28 but alert now- knows year, loxcation, president- exam nonfocal- lab shows hyponatremia newm K+ up also- will dc torsemide, kcl , follow- ct head ok- had mild rsp acidosis 05/28 but more alert now off ventimask- also check cortisol but doubt addisons Justifications for Admission Other Justification VERNA GARCIA MD May 29, 2020 08:52
[2020-05-29] MEDS: HEPARIN for SUB-Q USE 5,000 UNIT/ML VIAL. SQ SCH ×2 (09:11→20:16)
[2020-05-29] MEDS: INSULIN GLARGINE SYRINGE. SQ SCH (09:12)
[2020-05-29 10:01] LABS: CALCIUM 9.6 mg/dL (8.5-10.1); CREATININE 4.2 mg/dL (0.6-1.0); GFR 10.9; POTASSIUM 5.7 mmol/L (3.5-5.1)
--- NOTE | 2020-05-29 10:38 | PDOC ---
DATE OF SERVICE DATE: 05/29/20 TIME: 10:35 SUBJECTIVE ROS PT in room , pt reports feeling fair except for mild dizziness when she sat up OBJECTIVE Vital Signs Vital Signs Date Time Temp Pulse Resp B/P (MAP) Pulse Ox O2 Delivery O2 Flow Rate FiO2 05/29/20 08:42 86 133/69 05/29/20 08:00 Venturi Mask 10.0 05/29/20 07:00 97.8 20 98 97.8 I & 0 l Intake and Output 05/29/20 07:00 Intake Total 1000 ml Output Total 350 ml Balance 650 ml Intake Oral 0 ml IV Total 1000 ml Output Urine Total 350 ml PHYSICAL EXAM Physical Exam General Appearance: NAD HEEN Venturi mask neck supple Lungs : decreased breath sounds, non labored Heart: S1S2 Abdomen: soft, obese , PD cath in place Extremities: Edema mild Neurology: alert, oriented DIAGNOSIS/ASSESSMENT Assessment & Plan ESRD - switched from PD to HD , Dialysis today , discussed treatment plan with [facility]- Temp HDC (has PD catheter as well) Acute hypoxemic respiratory failure secondary to COVID-19 viral pneumonia./ ALI/ARDS- No recent CxR - last 05/20 reported stable infiltrates She has completed full course of steroids and remdesivir COVID-[address] angiogram, no evidence of pulmonary embolism. Morbid obesity. Obstructive sleep apnea. COMMENT/RELEVANT DATA Meds Current Medications Medications (Trade) Dose Ordered Sig/Mya Start Time Stop Time Status Last Admin Dose Admin Acetaminophen (Tylenol) 650 mg PRN Q4HRS PRN 04/27/20 23:15 05/26/20 08:26 650 MG Albumin Human 200 ml @ 200 mls/hr 1X PRN PRN 05/27/20 11:00 05/27/20 16:59 DC Amino Acids/ Glycerin/ Electrolytes 1,000 ml @ 80 mls/hr [id number] 05/23/20 11:45 05/29/20 08:41 80 MLS/HR Ascorbic Acid (Vitamin C) 1,000 mg DAILY 04/28/20 13:00 04/30/20 08:57 DC 04/30/20 08:11 1,000 MG Atorvastatin Calcium (Lipitor) 40 mg QHS 04/27/20 21:00 04/30/20 08:57 DC 04/29/20 19:57 40 MG Atropine Sulfate (ATROPINE 0.5mg SYRINGE) 0.5 mg PRN Q5MIN PRN 05/19/20 09:45 05/21/20 16:18 DC Azithromycin 250 ml @ 250 mls/hr 1X ONCE 04/26/20 23:00 04/26/20 23:59 DC 04/26/20 23:18 250 MLS/HR Bisacodyl (Dulcolax Supp) 10 mg PRN DAILY PRN 05/26/20 17:45 05/26/20 17:55 10 MG Carvedilol (Coreg) 25 mg BIDWMEALS 05/01/20 17:00 05/29/20 08:42 25 MG Ceftriaxone Sodium (Rocephin) 1 gm Q24H 04/28/20 13:00 05/03/20 09:20 DC 05/02/20 12:20 1 GM Cyclobenzaprine HCl (Flexeril) 10 mg PRN QID PRN 04/28/20 21:00 05/28/20 09:26 10 MG Dexamethasone (Decadron) 4 mg DAILYWBKFT 05/04/20 08:00 05/06/20 08:33 DC 05/06/20 08:15 4 MG Dexmedetomidine HCl 400 mcg/ Sodium Chloride 100 ml @ 6.99 mls/hr CONT PRN 05/19/20 09:45 05/21/20 16:18 DC 05/21/20 10:38 6.99 MLS/HR Dextrose (Dextrose 50%-Water Syringe) 12.5 gm PRN Q15MIN PRN 04/27/20 04:00 05/03/20 18:50 25 GM Dicyclomine HCl (Bentyl) 10 mg PRN TID PRN 05/18/20 22:15 05/26/20 08:26 10 MG Docusate Sodium (Colace) 100 mg BID 05/01/20 12:45 05/13/20 18:00 DC 05/13/20 09:01 100 MG Doxycycline Hyclate (Vibra-Tab) 100 mg BID 04/28/20 13:00 05/03/20 09:20 DC 05/03/20 08:36 100 MG Duloxetine HCl (Cymbalta) 30 mg BID 04/27/20 09:00 05/29/20 08:41 30 MG Enoxaparin Sodium (Lovenox 30mg Syringe) 30 mg Q24H 04/28/20 13:00 04/28/20 12:38 DC Fluconazole (Diflucan) 200 mg DAILY08 05/26/20 12:00 06/01/20 08:01 05/29/20 08:41 200 MG Gabapentin (Neurontin) 400 mg QHS 05/29/20 21:00 Heparin Sodium (Porcine) (Heparin Sodium) 2,500 unit 1X ONCE 05/20/20 11:00 05/20/20 11:01 DC 05/20/20 11:26 2,500 UNIT Info (CONTRAST GIVEN -- Rx MONITORING) 1 each PRN DAILY PRN 04/26/20 20:45 04/28/20 20:44 DC Info (PHARMACY MONITORING -- do not chart) 1 each PRN DAILY PRN 05/27/20 11:00 Insulin Glargine (Lantus Syringe) 65 unit DAILY 05/28/20 09:00 05/29/20 09:12 65 UNIT Insulin Human Lispro (HumaLOG) 10 units PRN BFRMEALHC PRN 05/28/20 08:45 Iohexol (Omnipaque 350 Mg/ml) 100 ml 1X ONCE 04/26/20 20:45 04/26/20 20:46 DC 04/26/20 21:20 100 ML Lactobacillus Rhamnosus (Culturelle) 1 cap BID 04/29/20 21:00 05/29/20 08:42 1 CAP Lactulose (Lactulose) 20 gm PRN 1X PRN 05/03/20 13:45 05/13/20 16:48 DC 05/12/20 15:41 20 GM Lidocaine HCl (Buffered Lidocaine 1%) 6 ml 1X ONCE 05/20/20 11:00 05/20/20 11:01 DC 05/20/20 11:22 3 ML Linagliptin (Tradjenta) 5 mg DAILY 04/27/20 09:00 05/29/20 08:43 5 MG Loperamide HCl (Imodium) 4 mg PRN TID PRN 05/17/20 22:30 05/22/20 07:58 4 MG Lorazepam (Ativan) 1 mg PRN Q8HRS PRN 05/18/20 22:15 05/28/20 09:26 1 MG Magnesium Sulfate 50 ml @ 25 mls/hr PRN DAILY PRN 05/11/20 14:15 Montelukast Sodium (Singulair) 10 mg HS 04/27/20 21:00 04/30/20 08:57 DC 04/29/20 19:57 10 MG Multivitamins (Thera M Plus) 1 tab DAILY 04/27/20 09:00 05/29/20 08:42 1 TAB Non-Formulary Medication (Gabapentin ) 600 mg HS 04/27/20 21:00 UNV Nystatin (Nystop) 1 jackie BID 05/08/20 21:00 UNV Ondansetron HCl (Zofran Odt) 4 mg PRN Q6HRS PRN 04/28/20 12:15 05/25/20 16:31 4 MG Ondansetron HCl (Zofran) 4 mg PRN Q8HRS PRN 04/26/20 22:45 04/27/20 22:44 DC Pantoprazole Sodium (PROTONIX VIAL for IV PUSH) 40 mg DAILY 05/02/20 09:00 05/07/20 15:25 DC 05/07/20 08:22 40 MG Pantoprazole Sodium (Protonix) 40 mg DAILYAC 05/08/20 07:30 05/29/20 08:41 40 MG Polyethylene Glycol (miraLAX PACKET) 34 gm PRN BID PRN 05/13/20 18:00 05/26/20 08:25 34 GM Potassium Chloride/Water 100 ml @ 100 mls/hr Q1H 05/01/20 15:00 05/01/20 18:59 DC 05/01/20 19:55 100 MLS/HR Potassium Chloride (Klor-Con) 20 meq DAILYWBKFT 05/02/20 08:00 05/29/20 08:40 DC 05/28/20 08:00 20 MEQ Remdesivir 100 mg/ Sodium Chloride 230 ml @ 460 mls/hr Q24H 04/29/20 14:00 05/02/20 14:29 DC 05/02/20 14:27 460 MLS/HR Remdesivir 200 mg/ Sodium Chloride 210 ml @ 210 mls/hr 1X ONCE 04/28/20 14:00 04/28/20 14:59 DC 04/28/20 15:39 210 MLS/HR Sevelamer Carbonate (Renvela) 1,600 mg TIDWMEALS 05/02/20 17:00 05/29/20 08:42 1,600 MG Simethicone (Gas-X) 80 mg PRN AFTMEALHC PRN 05/10/20 15:30 05/27/20 22:35 80 MG Sodium Bicarbonate (Sodium Bicarb Adult 8.4% Syr) 50 meq 1X ONCE 05/19/20 16:30 05/19/20 16:34 DC 05/19/20 16:51 50 MEQ Sodium Chloride 1,000 ml @ 1,000 mls/hr Q1H PRN 05/27/20 11:00 05/27/20 16:59 DC Sodium Chloride (Normal Saline Flush) 10 ml 1X PRN PRN 05/24/20 08:00 05/25/20 07:59 DC Sterile Water (WATER for RESP) 1,000 ml CONT PRN 04/30/20 20:30 05/18/20 23:51 1,000 ML Temazepam (Restoril) 15 mg PRN QHS PRN 05/13/20 18:00 05/27/20 22:35 15 MG Torsemide (Demadex) 40 mg BID94 04/27/20 09:00 05/29/20 08:40 DC 05/28/20 09:26 40 MG Vitamin B Complex/ Vitamin C (Kelly-Jalen) 1 tab DAILY 04/29/20 14:00 05/29/20 08:41 1 TAB Vitamin D (Vitamin D3) 500 unit DAILY 04/28/20 13:00 04/30/20 08:57 DC 04/30/20 08:10 500 UNIT Zinc Sulfate (Orazinc) 220 mg DAILY 04/28/20 13:00 05/29/20 08:41 220 MG Lab Laboratory Tests Test 05/28/20 11:50 05/28/20 14:55 05/28/20 15:26 05/28/20 15:30 Glucose (Fingerstick) 184 mg/dL (70-99) White Blood Count 8.0 x10^3/uL (4.0-11.0) Red Blood Count 2.69 x10^6/uL (3.50-5.40) Hemoglobin 8.5 g/dL (12.0-15.5) Hematocrit 25.8 % (36.0-47.0) Mean Corpuscular Volume 96 fL (79-100) Mean Corpuscular Hemoglobin 32 pg (25-35) Mean Corpuscular Hemoglobin Concent 33 g/dL (31-37) Red Cell Distribution Width 16.4 % (11.5-14.5) Platelet Count 199 x10^3/uL (140-400) Neutrophils (%) (Auto) 62 % (31-73) Lymphocytes (%) (Auto) 21 % (24-48) Monocytes (%) (Auto) 12 % (0-9) Eosinophils (%) (Auto) 4 % (0-3) Basophils (%) (Auto) 1 % (0-3) Neutrophils # (Auto) 5.0 x10^3/uL (1.8-7.7) Lymphocytes # (Auto) 1.7 x10^3/uL (1.0-4.8) Monocytes # (Auto) 0.9 x10^3/uL (0.0-1.1) Eosinophils # (Auto) 0.3 x10^3/uL (0.0-0.7) Basophils # (Auto) 0.1 x10^3/uL (0.0-0.2) Segmented Neutrophils % 57 % (35-66) Band Neutrophils % 5 % (0-9) Lymphocytes % 23 % (24-48) Monocytes % 13 % (0-10) Eosinophils % 2 % (0-5) Platelet Estimate Adequate (ADEQUATE) Large Platelets Present Polychromasia Present Basophilic Stippling Present Anisocytosis Present Sodium Level 128 mmol/L (136-145) Potassium Level 5.5 mmol/L (3.5-5.1) Chloride Level 93 mmol/L (98-107) Carbon Dioxide Level 29 mmol/L (21-32) Anion Gap 6 (6-14) Blood Urea Nitrogen 55 mg/dL (7-20) Creatinine 4.1 mg/dL (0.6-1.0) Estimated GFR (Cockcroft-Gault) 11.3 Glucose Level 159 mg/dL (70-99) Calcium Level 9.0 mg/dL (8.5-10.1) C-Reactive Protein, Quantitative 8.5 mg/L (0-3.3) Vitamin B12 Level 583 pg/mL (247-911) Thyroid Stimulating Hormone (TSH) 0.979 uIU/mL (0.358-3.74) Ammonia 12 mcmol/L (11-34) O2 Saturation 92 % (92-99) Arterial Blood pH 7.31 (7.35-7.45) Arterial Blood pCO2 at Patient Temp 58 mmHg (35-46) Arterial Blood pO2 at Patient Temp 64 mmHg (75-108) Arterial Blood HCO3 28 mmol/L (21-28) Arterial Blood Base Excess 1 mmol/L (-3-3) FiO2 60/5l nc + 5l nrb Test 05/28/20 17:02 05/28/20 20:20 05/29/20 07:41 05/29/20 09:30 Glucose (Fingerstick) 164 mg/dL (70-99) 145 mg/dL (70-99) 176 mg/dL (70-99) Sodium Level 125 mmol/L (136-145) Potassium Level 5.7 mmol/L (3.5-5.1) Chloride Level 91 mmol/L (98-107) Carbon Dioxide Level 29 mmol/L (21-32) Anion Gap 5 (6-14) Blood Urea Nitrogen 63 mg/dL (7-20) Creatinine 4.2 mg/dL (0.6-1.0) Estimated GFR (Cockcroft-Gault) 10.9 Glucose Level 158 mg/dL (70-99) Calcium Level 9.6 mg/dL (8.5-10.1) Results All relevant outside records, renal labs, imaging studies, telemetry/EKG's were reviewed. Justicifation of Admission Dx: Justifications for Admission: Justification of Admission Dx: N/A FLORINA TRONCOSO MD May 29, 2020 10:38
[2020-05-29] MEDS ORDERED: DIALYSIS PATIENT. MC PRN ×2 (10:45)
[2020-05-29] MEDS ORDERED: ALBUMIN HUMAN 25% 200 ML IV PRN (10:45)
[2020-05-29] MEDS ORDERED: IV NORMAL SALINE 1000ML BAG 1,000 ML IV PRN ×2 (10:45)
[2020-05-29 11:00] VITALS: BP 132/60
--- NOTE | 2020-05-29 11:00 | PDOC ---
PULMONARY PROGRESS NOTES DATE: 05/29/20 TIME: 11:00 Subjective Patient is more awake today On 10 liters N/C and additional 5 liters simple mask Hypoxia with eating low grade fever overnight Vitals Vital Signs Date Time Temp Pulse Resp B/P (MAP) Pulse Ox O2 Delivery O2 Flow Rate FiO2 05/29/20 08:42 86 133/69 05/29/20 08:00 Venturi Mask 10.0 05/29/20 07:00 97.8 20 98 97.8 ROS: No Nausea, No Chest Pain, No Abdominal Pain, No Increase Cough General: Alert, Lethargic Lungs: Crackles Cardiovascular: S1, S2 Abdomen: Soft, Non-tender, Other (obese) Skin: Warm, Dry Labs Laboratory Tests Test 05/27/20 14:55 05/27/20 16:36 05/27/20 20:33 05/28/20 07:35 O2 Saturation 97 % (92-99) Arterial Blood pH 7.34 (7.35-7.45) Arterial Blood pCO2 at Patient Temp 58 mmHg (35-46) Arterial Blood pO2 at Patient Temp 101 mmHg (75-108) Arterial Blood HCO3 31 mmol/L (21-28) Arterial Blood Base Excess 4 mmol/L (-3-3) Oxyhemoglobin 97.0 % Methemoglobin 0.1 % (0.0-1.9) Carbon Monoxide, Quantitative 0.1 % (0.0-1.9) FiO2 100 Glucose (Fingerstick) 159 mg/dL (70-99) 201 mg/dL (70-99) 166 mg/dL (70-99) Test 05/28/20 11:50 05/28/20 14:55 05/28/20 15:26 05/28/20 15:30 Glucose (Fingerstick) 184 mg/dL (70-99) White Blood Count 8.0 x10^3/uL (4.0-11.0) Red Blood Count 2.69 x10^6/uL (3.50-5.40) Hemoglobin 8.5 g/dL (12.0-15.5) Hematocrit 25.8 % (36.0-47.0) Mean Corpuscular Volume 96 fL (79-100) Mean Corpuscular Hemoglobin 32 pg (25-35) Mean Corpuscular Hemoglobin Concent 33 g/dL (31-37) Red Cell Distribution Width 16.4 % (11.5-14.5) Platelet Count 199 x10^3/uL (140-400) Neutrophils (%) (Auto) 62 % (31-73) Lymphocytes (%) (Auto) 21 % (24-48) Monocytes (%) (Auto) 12 % (0-9) Eosinophils (%) (Auto) 4 % (0-3) Basophils (%) (Auto) 1 % (0-3) Neutrophils # (Auto) 5.0 x10^3/uL (1.8-7.7) Lymphocytes # (Auto) 1.7 x10^3/uL (1.0-4.8) Monocytes # (Auto) 0.9 x10^3/uL (0.0-1.1) Eosinophils # (Auto) 0.3 x10^3/uL (0.0-0.7) Basophils # (Auto) 0.1 x10^3/uL (0.0-0.2) Segmented Neutrophils % 57 % (35-66) Band Neutrophils % 5 % (0-9) Lymphocytes % 23 % (24-48) Monocytes % 13 % (0-10) Eosinophils % 2 % (0-5) Platelet Estimate Adequate (ADEQUATE) Large Platelets Present Polychromasia Present Basophilic Stippling Present Anisocytosis Present Sodium Level 128 mmol/L (136-145) Potassium Level 5.5 mmol/L (3.5-5.1) Chloride Level 93 mmol/L (98-107) Carbon Dioxide Level 29 mmol/L (21-32) Anion Gap 6 (6-14) Blood Urea Nitrogen 55 mg/dL (7-20) Creatinine 4.1 mg/dL (0.6-1.0) Estimated GFR (Cockcroft-Gault) 11.3 Glucose Level 159 mg/dL (70-99) Calcium Level 9.0 mg/dL (8.5-10.1) C-Reactive Protein, Quantitative 8.5 mg/L (0-3.3) Vitamin B12 Level 583 pg/mL (247-911) Thyroid Stimulating Hormone (TSH) 0.979 uIU/mL (0.358-3.74) Ammonia 12 mcmol/L (11-34) O2 Saturation 92 % (92-99) Arterial Blood pH 7.31 (7.35-7.45) Arterial Blood pCO2 at Patient Temp 58 mmHg (35-46) Arterial Blood pO2 at Patient Temp 64 mmHg (75-108) Arterial Blood HCO3 28 mmol/L (21-28) Arterial Blood Base Excess 1 mmol/L (-3-3) FiO2 60/5l nc + 5l nrb Test 05/28/20 17:02 05/28/20 20:20 05/29/20 07:41 05/29/20 09:30 Glucose (Fingerstick) 164 mg/dL (70-99) 145 mg/dL (70-99) 176 mg/dL (70-99) Sodium Level 125 mmol/L (136-145) Potassium Level 5.7 mmol/L (3.5-5.1) Chloride Level 91 mmol/L (98-107) Carbon Dioxide Level 29 mmol/L (21-32) Anion Gap 5 (6-14) Blood Urea Nitrogen 63 mg/dL (7-20) Creatinine 4.2 mg/dL (0.6-1.0) Estimated GFR (Cockcroft-Gault) 10.9 Glucose Level 158 mg/dL (70-99) Calcium Level 9.6 mg/dL (8.5-10.1) Laboratory Tests Test 05/28/20 11:50 05/28/20 14:55 05/28/20 15:26 05/28/20 15:30 Glucose (Fingerstick) 184 mg/dL (70-99) White Blood Count 8.0 x10^3/uL (4.0-11.0) Red Blood Count 2.69 x10^6/uL (3.50-5.40) Hemoglobin 8.5 g/dL (12.0-15.5) Hematocrit 25.8 % (36.0-47.0) Mean Corpuscular Volume 96 fL (79-100) Mean Corpuscular Hemoglobin 32 pg (25-35) Mean Corpuscular Hemoglobin Concent 33 g/dL (31-37) Red Cell Distribution Width 16.4 % (11.5-14.5) Platelet Count 199 x10^3/uL (140-400) Neutrophils (%) (Auto) 62 % (31-73) Lymphocytes (%) (Auto) 21 % (24-48) Monocytes (%) (Auto) 12 % (0-9) Eosinophils (%) (Auto) 4 % (0-3) Basophils (%) (Auto) 1 % (0-3) Neutrophils # (Auto) 5.0 x10^3/uL (1.8-7.7) Lymphocytes # (Auto) 1.7 x10^3/uL (1.0-4.8) Monocytes # (Auto) 0.9 x10^3/uL (0.0-1.1) Eosinophils # (Auto) 0.3 x10^3/uL (0.0-0.7) Basophils # (Auto) 0.1 x10^3/uL (0.0-0.2) Segmented Neutrophils % 57 % (35-66) Band Neutrophils % 5 % (0-9) Lymphocytes % 23 % (24-48) Monocytes % 13 % (0-10) Eosinophils % 2 % (0-5) Platelet Estimate Adequate (ADEQUATE) Large Platelets Present Polychromasia Present Basophilic Stippling Present Anisocytosis Present Sodium Level 128 mmol/L (136-145) Potassium Level 5.5 mmol/L (3.5-5.1) Chloride Level 93 mmol/L (98-107) Carbon Dioxide Level 29 mmol/L (21-32) Anion Gap 6 (6-14) Blood Urea Nitrogen 55 mg/dL (7-20) Creatinine 4.1 mg/dL (0.6-1.0) Estimated GFR (Cockcroft-Gault) 11.3 Glucose Level 159 mg/dL (70-99) Calcium Level 9.0 mg/dL (8.5-10.1) C-Reactive Protein, Quantitative 8.5 mg/L (0-3.3) Vitamin B12 Level 583 pg/mL (247-911) Thyroid Stimulating Hormone (TSH) 0.979 uIU/mL (0.358-3.74) Ammonia 12 mcmol/L (11-34) O2 Saturation 92 % (92-99) Arterial Blood pH 7.31 (7.35-7.45) Arterial Blood pCO2 at Patient Temp 58 mmHg (35-46) Arterial Blood pO2 at Patient Temp 64 mmHg (75-108) Arterial Blood HCO3 28 mmol/L (21-28) Arterial Blood Base Excess 1 mmol/L (-3-3) FiO2 60/5l nc + 5l nrb Test 05/28/20 17:02 05/28/20 20:20 05/29/20 07:41 05/29/20 09:30 Glucose (Fingerstick) 164 mg/dL (70-99) 145 mg/dL (70-99) 176 mg/dL (70-99) Sodium Level 125 mmol/L (136-145) Potassium Level 5.7 mmol/L (3.5-5.1) Chloride Level 91 mmol/L (98-107) Carbon Dioxide Level 29 mmol/L (21-32) Anion Gap 5 (6-14) Blood Urea Nitrogen 63 mg/dL (7-20) Creatinine 4.2 mg/dL (0.6-1.0) Estimated GFR (Cockcroft-Gault) 10.9 Glucose Level 158 mg/dL (70-99) Calcium Level 9.6 mg/dL (8.5-10.1) Medications Active Scripts Medications Dose Route/Sig Max Daily Dose Days Date Category Dose Instructions Gabapentin 600 Mg Tablet 600 Mg PO HS 04/27/20 Reported Gabapentin (Gabapentin) 300 Mg Capsule 300 Mg PO DAILY 04/27/20 Reported Lantus Solostar (Insulin Glargine,Hum.rec.anlog) 100 Unit/1 Ml Insuln.pen 75 Unit SQ BID 09/19/19 Reported Januvia (Sitagliptin Phosphate) 25 Mg Tablet 25 Mg PO DAILY 09/19/19 Reported Novolog (Insulin Aspart) 100 Unit/1 Ml Cartridge 0 SQ TIDAC 01/26/19 Reported Sliding scale; patient has printout (at home) of scale. Unknown at this time. Singulair Tablet (Montelukast Sodium) 10 Mg Tablet 10 Mg PO HS 11/24/18 Reported Atorvastatin Calcium 40 Mg Tablet 1 Tab PO QHS 11/24/18 Reported Torsemide 20 Mg Tablet 2 Tab PO BID 11/24/18 Reported Cymbalta (Duloxetine Hcl) 30 Mg Capsule. 1 Cap PO BID 11/24/18 Reported Daily Jalen (Multivitamin) 1 Each Tablet 1 Each PO DAILY 11/24/18 Reported Comments CXR 05/20 IMPRESSION: Slightly improved diffuse bilateral opacities. CTA chest IMPRESSION: 1. No evidence of pulmonary thromboembolic disease. 2. Multifocal bilateral groundglass opacities and consolidations, consistent with patient's history of infection. 3. Dilated pulmonary trunk, which can be seen with pulmonary hypertension. Impression . IMPRESSION: 1. Acute hypoxemic respiratory failure secondary to COVID-19 viral pneumonia./ ALI/ARDS-- 2. COVID-[address] angiogram, no evidence of pulmonary embolism. 4. Chronic kidney disease, previously peritoneal dialysis, now HD 5. Morbid obesity. 6. Obstructive sleep apnea. 7. Hyperlipidemia. 8. Hypertension. Plan . PLAN: Continue supplemental oxygen to keep oxygen saturations 90%, 10 lites N/C and additional 5 liters simple mask Follow CXR/ABG-- Pt. has completed full course of steroids monitor off ABX Pt. has completed Full course of remdesivir Follow nephrology recommendations now on HD, Continue PPN for nutritional support, in addition to po intake as tolerated Physical therapy/Occupational Therapy DVT/GI prophylaxis Discussed with RN patient is a DNR/DNI RAFAL SINHA MD May 29, 2020 11:00
--- NOTE | 2020-05-29 12:04 | NUR ---
SS following up with discharge planning. SS reviewed pt chart and discussed with pt RN. Pt on high flow oxygen. COVID19 recovered. PPN. Pt on hemodialysis. Pt remains confused. Pt accepted clinically at [facility], ; fax [phone]. [facility] denied insurance authorization. Peer to peer with Dr. Andersen was denied as well by insurance. Written appeal in process. Signed AOR form provided by physician. SS phoned and faxed AOR form, DPOA, and updated clinical to [facility]. SS will continue to follow for discharge planning.
--- NOTE | 2020-05-29 12:20 | PDOC ---
PROGRESS NOTES Date of Service DATE: 05/29/20 TIME: 12:15 Assessment Problems Medical Problems: (1) CAP (community acquired pneumonia) Status: Acute (2) COVID-19 Status: Acute Metabolic encephalopathy, CT head negative, much better after BiPAP yesterday. She did have abnormal blood gas, worse hypercarbia than before. Other lab work is negative COVID-19 pneumonia, hypertension, sleep apnea, obesity Plan Continue treating pulmonary issues, no need for additional neurological studies. Discussed with mother Subjective No complaints Objective Vital Signs Date Time Temp Pulse Resp B/P (MAP) Pulse Ox O2 Delivery O2 Flow Rate FiO2 05/29/20 11:00 98.2 81 18 132/60 (84) 90 Nasal Cannula 11.0 98.2 Intake and Output 05/29/20 07:00 Intake Total 1000 ml Output Total 350 ml Balance 650 ml Intake Oral 0 ml IV Total 1000 ml Output Urine Total 350 ml PHYSICAL EXAM Alert. Oriented to time, place and person. No hallucinations PERRL. EOMI. CN: no focal findings. Muscle tone: normal. Muscle strength: 4/5 DTR: 0-1+ Plantar reflex: Flexor Gait: not examined in bed. Sensory exam: no abnormal findings. No cerebellar signs elicited. Review of Relevant I have reviewed the following items louann (where applicable) has been applied. Labs Laboratory Tests Test 05/27/20 14:55 05/27/20 16:36 05/27/20 20:33 05/28/20 07:35 O2 Saturation 97 % (92-99) Arterial Blood pH 7.34 (7.35-7.45) Arterial Blood pCO2 at Patient Temp 58 mmHg (35-46) Arterial Blood pO2 at Patient Temp 101 mmHg (75-108) Arterial Blood HCO3 31 mmol/L (21-28) Arterial Blood Base Excess 4 mmol/L (-3-3) Oxyhemoglobin 97.0 % Methemoglobin 0.1 % (0.0-1.9) Carbon Monoxide, Quantitative 0.1 % (0.0-1.9) FiO2 100 Glucose (Fingerstick) 159 mg/dL (70-99) 201 mg/dL (70-99) 166 mg/dL (70-99) Test 05/28/20 11:50 05/28/20 14:55 05/28/20 15:26 1/19/21 15:30 Glucose (Fingerstick) 184 mg/dL (70-99) White Blood Count 8.0 x10^3/uL (4.0-11.0) Red Blood Count 2.69 x10^6/uL (3.50-5.40) Hemoglobin 8.5 g/dL (12.0-15.5) Hematocrit 25.8 % (36.0-47.0) Mean Corpuscular Volume 96 fL (79-100) Mean Corpuscular Hemoglobin 32 pg (25-35) Mean Corpuscular Hemoglobin Concent 33 g/dL (31-37) Red Cell Distribution Width 16.4 % (11.5-14.5) Platelet Count 199 x10^3/uL (140-400) Neutrophils (%) (Auto) 62 % (31-73) Lymphocytes (%) (Auto) 21 % (24-48) Monocytes (%) (Auto) 12 % (0-9) Eosinophils (%) (Auto) 4 % (0-3) Basophils (%) (Auto) 1 % (0-3) Neutrophils # (Auto) 5.0 x10^3/uL (1.8-7.7) Lymphocytes # (Auto) 1.7 x10^3/uL (1.0-4.8) Monocytes # (Auto) 0.9 x10^3/uL (0.0-1.1) Eosinophils # (Auto) 0.3 x10^3/uL (0.0-0.7) Basophils # (Auto) 0.1 x10^3/uL (0.0-0.2) Segmented Neutrophils % 57 % (35-66) Band Neutrophils % 5 % (0-9) Lymphocytes % 23 % (24-48) Monocytes % 13 % (0-10) Eosinophils % 2 % (0-5) Platelet Estimate Adequate (ADEQUATE) Large Platelets Present Polychromasia Present Basophilic Stippling Present Anisocytosis Present Sodium Level 128 mmol/L (136-145) Potassium Level 5.5 mmol/L (3.5-5.1) Chloride Level 93 mmol/L (98-107) Carbon Dioxide Level 29 mmol/L (21-32) Anion Gap 6 (6-14) Blood Urea Nitrogen 55 mg/dL (7-20) Creatinine 4.1 mg/dL (0.6-1.0) Estimated GFR (Cockcroft-Gault) 11.3 Glucose Level 159 mg/dL (70-99) Calcium Level 9.0 mg/dL (8.5-10.1) C-Reactive Protein, Quantitative 8.5 mg/L (0-3.3) Vitamin B12 Level 583 pg/mL (247-911) Thyroid Stimulating Hormone (TSH) 0.979 uIU/mL (0.358-3.74) Ammonia 12 mcmol/L (11-34) O2 Saturation 92 % (92-99) Arterial Blood pH 7.31 (7.35-7.45) Arterial Blood pCO2 at Patient Temp 58 mmHg (35-46) Arterial Blood pO2 at Patient Temp 64 mmHg (75-108) Arterial Blood HCO3 28 mmol/L (21-28) Arterial Blood Base Excess 1 mmol/L (-3-3) FiO2 60/5l nc + 5l nrb Test 05/28/20 17:02 05/28/20 20:20 05/29/20 07:41 05/29/20 09:30 Glucose (Fingerstick) 164 mg/dL (70-99) 145 mg/dL (70-99) 176 mg/dL (70-99) Sodium Level 125 mmol/L (136-145) Potassium Level 5.7 mmol/L (3.5-5.1) Chloride Level 91 mmol/L (98-107) Carbon Dioxide Level 29 mmol/L (21-32) Anion Gap 5 (6-14) Blood Urea Nitrogen 63 mg/dL (7-20) Creatinine 4.2 mg/dL (0.6-1.0) Estimated GFR (Cockcroft-Gault) 10.9 Glucose Level 158 mg/dL (70-99) Calcium Level 9.6 mg/dL (8.5-10.1) Test 05/29/20 11:38 Glucose (Fingerstick) 204 mg/dL (70-99) Laboratory Tests Test 05/28/20 14:55 05/28/20 15:26 05/28/20 15:30 05/28/20 17:02 White Blood Count 8.0 x10^3/uL (4.0-11.0) Red Blood Count 2.69 x10^6/uL (3.50-5.40) Hemoglobin 8.5 g/dL (12.0-15.5) Hematocrit 25.8 % (36.0-47.0) Mean Corpuscular Volume 96 fL (79-100) Mean Corpuscular Hemoglobin 32 pg (25-35) Mean Corpuscular Hemoglobin Concent 33 g/dL (31-37) Red Cell Distribution Width 16.4 % (11.5-14.5) Platelet Count 199 x10^3/uL (140-400) Neutrophils (%) (Auto) 62 % (31-73) Lymphocytes (%) (Auto) 21 % (24-48) Monocytes (%) (Auto) 12 % (0-9) Eosinophils (%) (Auto) 4 % (0-3) Basophils (%) (Auto) 1 % (0-3) Neutrophils # (Auto) 5.0 x10^3/uL (1.8-7.7) Lymphocytes # (Auto) 1.7 x10^3/uL (1.0-4.8) Monocytes # (Auto) 0.9 x10^3/uL (0.0-1.1) Eosinophils # (Auto) 0.3 x10^3/uL (0.0-0.7) Basophils # (Auto) 0.1 x10^3/uL (0.0-0.2) Segmented Neutrophils % 57 % (35-66) Band Neutrophils % 5 % (0-9) Lymphocytes % 23 % (24-48) Monocytes % 13 % (0-10) Eosinophils % 2 % (0-5) Platelet Estimate Adequate (ADEQUATE) Large Platelets Present Polychromasia Present Basophilic Stippling Present Anisocytosis Present Sodium Level 128 mmol/L (136-145) Potassium Level 5.5 mmol/L (3.5-5.1) Chloride Level 93 mmol/L (98-107) Carbon Dioxide Level 29 mmol/L (21-32) Anion Gap 6 (6-14) Blood Urea Nitrogen 55 mg/dL (7-20) Creatinine 4.1 mg/dL (0.6-1.0) Estimated GFR (Cockcroft-Gault) 11.3 Glucose Level 159 mg/dL (70-99) Calcium Level 9.0 mg/dL (8.5-10.1) C-Reactive Protein, Quantitative 8.5 mg/L (0-3.3) Vitamin B12 Level 583 pg/mL (247-911) Thyroid Stimulating Hormone (TSH) 0.979 uIU/mL (0.358-3.74) Ammonia 12 mcmol/L (11-34) O2 Saturation 92 % (92-99) Arterial Blood pH 7.31 (7.35-7.45) Arterial Blood pCO2 at Patient Temp 58 mmHg (35-46) Arterial Blood pO2 at Patient Temp 64 mmHg (75-108) Arterial Blood HCO3 28 mmol/L (21-28) Arterial Blood Base Excess 1 mmol/L (-3-3) FiO2 60/5l nc + 5l nrb Glucose (Fingerstick) 164 mg/dL (70-99) Test 05/28/20 20:20 05/29/20 07:41 05/29/20 09:30 05/29/20 11:38 Glucose (Fingerstick) 145 mg/dL (70-99) 176 mg/dL (70-99) 204 mg/dL (70-99) Sodium Level 125 mmol/L (136-145) Potassium Level 5.7 mmol/L (3.5-5.1) Chloride Level 91 mmol/L (98-107) Carbon Dioxide Level 29 mmol/L (21-32) Anion Gap 5 (6-14) Blood Urea Nitrogen 63 mg/dL (7-20) Creatinine 4.2 mg/dL (0.6-1.0) Estimated GFR (Cockcroft-Gault) 10.9 Glucose Level 158 mg/dL (70-99) Calcium Level 9.6 mg/dL (8.5-10.1) Microbiology 04/26/20 Blood Culture - Final, Complete NO GROWTH AFTER 5 DAYS Medications Current Medications Sodium Chloride 1,000 ml @ 1,000 mls/hr 1X ONCE IV Last administered on 04/26/20at 19:17; Start 04/26/20 at 19:15; Stop 04/26/20 at 20:14; Status DC Iohexol (Omnipaque 350 Mg/ml) 100 ml 1X ONCE IV Last administered on 04/26/20at 21:20; Start 04/26/20 at 20:45; Stop 04/26/20 at 20:46; Status DC Info (CONTRAST GIVEN -- Rx MONITORING) 1 each PRN DAILY PRN MC SEE COMMENTS; Start 04/26/20 at 20:45; Stop 04/28/20 at 20:44; Status DC Ceftriaxone Sodium (Rocephin) 1 gm 1X ONCE IVP Last administered on 04/26/20at 23:18; Start 04/26/20 at 23:00; Stop 04/26/20 at 23:01; Status DC Azithromycin 250 ml @ 250 mls/hr 1X ONCE IV Last administered on 04/26/20at 23:18; Start 04/26/20 at 23:00; Stop 04/26/20 at 23:59; Status DC Ondansetron HCl (Zofran) 4 mg PRN Q8HRS PRN IV NAUSEA/VOMITING 1ST CHOICE; Start 04/26/20 at 22:45; Stop 04/27/20 at 22:44; Status DC Acetaminophen (Tylenol) 650 mg PRN Q4HRS PRN PO FEVER > 100.3'F Last administered on 04/27/20at 16:47; Start 04/26/20 at 22:45; Stop 04/27/20 at 22:44; Status DC Atorvastatin Calcium (Lipitor) 40 mg QHS PO Last administered on 04/29/20at 19:57; Start 04/27/20 at 21:00; Stop 04/30/20 at 08:57; Status DC Duloxetine HCl (Cymbalta) 30 mg BID PO Last administered on 05/29/20at 08:41; Start 04/27/20 at 09:00 Gabapentin (Neurontin) 300 mg DAILY PO ; Start 04/27/20 at 04:30; Status Cancel Montelukast Sodium (Singulair) 10 mg HS PO Last administered on 04/29/20at 19:57; Start 04/27/20 at 21:00; Stop 04/30/20 at 08:57; Status DC Torsemide (Demadex) 40 mg [id number] PO Last administered on 05/28/20at 09:26; Start 04/27/20 at 09:00; Stop 05/29/20 at 08:40; Status DC Non-Formulary Medication (Gabapentin ) 600 mg HS PO ; Start 04/27/20 at 21:00; Status UNV Insulin Human Lispro (HumaLOG) 25 units TIDWMEALS SQ Last administered on 04/29/20at 08:34; Start 04/27/20 at 08:00; Stop 04/29/20 at 08:56; Status DC Insulin Glargine (Lantus Syringe) 75 unit BID SQ Last administered on 04/29/20at 08:35; Start 04/27/20 at 09:00; Stop 04/29/20 at 08:56; Status DC Multivitamins (Thera M Plus) 1 tab DAILY PO Last administered on 05/29/20 08:42; Start 04/27/20 at 09:00 Linagliptin (Tradjenta) 5 mg DAILY PO Last administered on 05/29/20at 08:43; Start 04/27/20 at 09:00 Gabapentin (Neurontin) 600 mg TID STAT PO ; Start 04/27/20 at 03:51; Stop 04/27/20 at 03:52; Status UNV Dextrose (Dextrose 50%-Water Syringe) 12.5 gm PRN Q15MIN PRN IV SEE COMMENTS Last administered on 05/03/20at 18:50; Start 04/27/20 at 04:00 Gabapentin (Neurontin) 600 mg QHS PO Last administered on 05/27/20at 20:36; Start 04/27/20 at 04:30; Stop 05/29/20 at 08:56; Status DC Acetaminophen (Tylenol) 650 mg PRN Q4HRS PRN PEG MILD PAIN / TEMP > 100.3'F; Start 04/27/20 at 23:00; Status Cancel Acetaminophen (Tylenol) 650 mg PRN Q4HRS PRN PO MILD PAIN / TEMP > 100.3'F Last administered on 05/26/20at 08:26; Start 04/27/20 at 23:15 Remdesivir 200 mg/ Sodium Chloride 210 ml @ 210 mls/hr 1X ONCE IV Last administered on 04/28/20at 15:39; Start 04/28/20 at 14:00; Stop 04/28/20 at 14:59; Status DC Remdesivir 100 mg/ Sodium Chloride 230 ml @ 460 mls/hr Q24H IV ; Start 04/29/20 at 14:00; Stop 05/02/20 at 14:29; Status Cancel Ondansetron HCl (Zofran Odt) 4 mg PRN Q6HRS PRN PO NAUSEA/VOMITING Last administered on 05/25/20at 16:31; Start 04/28/20 at 12:15 Heparin Sodium (Porcine) (Heparin Sodium) 5,000 unit Q8HRS SQ Last administered on 05/18/20at 05:45; Start 04/28/20 at 14:00; Stop 05/18/20 at 14:14; Status DC Dexamethasone (Decadron) 6 mg DAILYWBKFT PO Last administered on 05/03/20at 08:37; Start 04/29/20 at 08:00; Stop 05/03/20 at 10:09; Status DC Dexamethasone (Decadron) 6 mg 1X ONCE PO Last administered on 04/28/20at 12:34; Start 04/28/20 at 13:00; Stop 04/28/20 at 13:01; Status DC Enoxaparin Sodium (Lovenox 30mg Syringe) 30 mg Q24H SQ ; Start 04/28/20 at 13:00; Stop 04/28/20 at 12:38; Status DC Doxycycline Hyclate (Vibra-Tab) 100 mg BID PO Last administered on 05/03/20at 08:36; Start 04/28/20 at 13:00; Stop 05/03/20 at 09:20; Status DC Ceftriaxone Sodium (Rocephin) 1 gm Q24H IVP Last administered on 05/02/20at 12:20; Start 04/28/20 at 13:00; Stop 05/03/20 at 09:20; Status DC Zinc Sulfate (Orazinc) 220 mg DAILY PO Last administered on 05/29/20at 08:41; Start 04/28/20 at 13:00 Vitamin D (Vitamin D3) 500 unit DAILY PO Last administered on 04/30/20at 08:10; Start 04/28/20 at 13:00; Stop 04/30/20 at 08:57; Status DC Ascorbic Acid (Vitamin C) 1,000 mg DAILY PO Last administered on 04/30/20at 08:11; Start 04/28/20 at 13:00; Stop 04/30/20 at 08:57; Status DC Temazepam (Restoril) 15 mg PRN QHS PRN PO INSOMNIA Last administered on 04/28/20at 22:48; Start 04/28/20 at 21:00; Stop 04/29/20 at 06:48; Status DC Cyclobenzaprine HCl (Flexeril) 10 mg PRN QID PRN PO MUSCLE SPASMS Last administered on 05/28/20at 09:26; Start 04/28/20 at 21:00 Insulin Glargine (Lantus Syringe) 85 unit BID SQ Last administered on 04/30/20at 20:39; Start 04/29/20 at 21:00; Stop 05/01/20 at 08:38; Status DC Insulin Human Lispro (HumaLOG) 30 units TIDWMEALS SQ Last administered on at 13:34; Start 04/29/20 at 12:00; Stop 05/03/20 at 19:55; Status DC Potassium Chloride (Klor-Con) 40 meq 1X ONCE PO Last administered on 04/29/20at 12:34; Start 04/29/20 at 12:30; Stop 04/29/20 at 12:31; Status DC Potassium Chloride (Klor-Con) 20 meq DAILYWBKFT PO Last administered on 04/30/20at 08:10; Start 04/30/20 at 08:00; Stop 04/30/20 at 08:57; Status DC Sevelamer Carbonate (Renvela) 800 mg TIDWMEALS PO Last administered on 05/02/20at 12:03; Start 04/29/20 at 17:00; Stop 05/02/20 at 12:44; Status DC Vitamin B Complex/ Vitamin C (Kelly-Jalen) 1 tab DAILY PO Last administered on 05/29/20at 08:41; Start 04/29/20 at 14:00 Remdesivir 100 mg/ Sodium Chloride 230 ml @ 460 mls/hr Q24H IV Last administered on 05/02/20at 14:27; Start 04/29/20 at 14:00; Stop 05/02/20 at 14:29; Status DC Lactobacillus Rhamnosus (Culturelle) 1 cap BID PO Last administered on at 08:42; Start 04/29/20 at 21:00 Potassium Chloride (Klor-Con) 20 meq 1X ONCE PO Last administered on 04/30/20at 14:40; Start 04/30/20 at 12:45; Stop 04/30/20 at 12:47; Status DC Sterile Water (WATER for RESP) 1,000 ml CONT PRN INH VIA VAPOTHERM DEVICE Last administered on 05/18/20at 23:51; Start 04/30/20 at 20:30 Insulin Glargine (Lantus Syringe) 75 unit BID SQ Last administered on 05/01/20at 20:52; Start 05/01/20 at 09:00; Stop 05/02/20 at 08:21; Status DC Carvedilol (Coreg) 25 mg BIDWMEALS PO Last administered on 05/29/20at 08:42; Start 05/01/20 at 17:00 Docusate Sodium (Colace) 100 mg PRN BID PRN PO HARD STOOLS; Start 05/01/20 at 12:45; Stop 05/01/20 at 12:45; Status DC Docusate Sodium (Colace) 100 mg BID PO Last administered on 05/13/20at 09:01; Start 05/01/20 at 12:45; Stop 05/13/20 at 18:00; Status DC Potassium Chloride/Water 100 ml @ 100 mls/hr Q1H IV Last administered on 05/01/20at 19:55; Start 05/01/20 at 15:00; Stop 05/01/20 at 18:59; Status DC Potassium Chloride (Klor-Con) 20 meq DAILYWBKFT PO Last administered on 05/28/20at 08:00; Start 05/02/20 at 08:00; Stop 05/29/20 at 08:40; Status DC Insulin Glargine (Lantus Syringe) 80 unit BID SQ Last administered on 05/03/20at 09:14; Start 05/02/20 at 09:00; Stop 05/03/20 at 19:55; Status DC Pantoprazole Sodium (PROTONIX VIAL for IV PUSH) 40 mg DAILY IVP Last administered on 05/07/20at 08:22; Start 05/02/20 at 09:00; Stop 05/07/20 at 15:25; Status DC Sevelamer Carbonate (Renvela) 1,600 mg TIDWMEALS PO Last administered on at 08:42; Start 05/02/20 at 17:00 Dexamethasone (Decadron) 4 mg DAILYWBKFT PO Last administered on 05/06/20at 08:15; Start 12/26/20 at 08:00; Stop 05/06/20 at 08:33; Status DC Lactulose (Lactulose) 20 gm 1X ONCE PO Last administered on 05/03/20at 15:32; Start 05/03/20 at 13:45; Stop 05/03/20 at 13:46; Status DC Lactulose (Lactulose) 20 gm PRN 1X PRN PO CONSTIPATION Last administered on 05/12/20at 15:41; Start 05/03/20 at 13:45; Stop 05/13/20 at 16:48; Status DC Insulin Glargine (Lantus Syringe) 60 unit BID SQ Last administered on 05/04/20at 22:04; Start 05/04/20 at 09:00; Stop 05/05/20 at 01:34; Status DC Insulin Human Lispro (HumaLOG) 15 units TIDAC SQ Last administered on 05/04/20at 07:49; Start 05/04/20 at 07:30; Stop 05/04/20 at 12:45; Status DC Insulin Glargine (Lantus Syringe) 60 unit 1X ONCE SQ Last administered on 05/04/20at 01:19; Start 05/04/20 at 01:15; Stop 05/04/20 at 01:16; Status DC Amino Acids/ Glycerin/ Electrolytes 1,000 ml @ 80 mls/hr [id number] IV Last administered on 05/07/20at 05:27; Start 05/04/20 at 10:15; Stop 05/07/20 at 12:31; Status DC Insulin Human Lispro (HumaLOG) 20 units 1X ONCE SQ Last administered on 05/04/20at 22:51; Start 05/04/20 at 22:45; Stop 05/04/20 at 22:46; Status DC Insulin Human Lispro (HumaLOG) 30 units 1X ONCE SQ Last administered on 05/05/20at 02:04; Start 05/05/20 at 01:45; Stop 05/05/20 at 01:47; Status DC Insulin Glargine (Lantus Syringe) 20 unit 1X ONCE SQ Last administered on 05/05/20at 02:04; Start 05/05/20 at 02:00; Stop 05/05/20 at 02:01; Status DC Insulin Glargine (Lantus Syringe) 80 unit BID SQ Last administered on 05/07/20at 08:25; Start 05/05/20 at 09:00; Stop 05/08/20 at 08:27; Status DC Insulin Human Lispro (HumaLOG) 20 units 1X ONCE SQ Last administered on 05/06/20at 03:37; Start 05/06/20 at 03:00; Stop 05/06/20 at 03:01; Status DC Insulin Human Lispro (HumaLOG) 20 units PRN BFRMEALHC PRN SQ Blood glucose > 200 mg/dL Last administered on 05/13/20at 09:05; Start 05/06/20 at 03:00; Stop 05/28/20 at 08:38; Status DC Pantoprazole Sodium (Protonix) 40 mg DAILYAC PO Last administered on 05/29/20at 08:41; Start 05/08/20 at 07:30 Insulin Glargine (Lantus Syringe) 80 unit DAILY SQ ; Start 05/08/20 at 09:00; Stop 05/09/20 at 09:06; Status DC Nystatin (Nystop) 1 jackie BID TP Last administered on 05/29/20at 08:51; Start 05/08/20 at 10:00 Nystatin (Nystop) 1 jackie BID TP ; Start 05/08/20 at 21:00; Status UNV Insulin Glargine (Lantus Syringe) 60 unit DAILY SQ Last administered on 05/12/20at 09:08; Start 05/10/20 at 09:00; Stop 05/13/20 at 08:25; Status DC Simethicone (Gas-X) 80 mg PRN AFTMEALHC PRN PO GAS / BLOATING, 1ST CHOICE Last administered on 05/27/20at 22:35; Start 05/10/20 at 15:30 Magnesium Sulfate 50 ml @ 25 mls/hr PRN DAILY PRN IV for Mag < 1.7 on am labs; Start 05/11/20 at 14:15 Insulin Glargine (Lantus Syringe) 70 unit DAILY SQ Last administered on 05/16/20at 08:26; Start 05/13/20 at 08:30; Stop 05/16/20 at 08:37; Status DC Polyethylene Glycol (miraLAX PACKET) 34 gm PRN BID PRN PO CONSTIPATION Last adm inistered on 05/26/20at 08:25; Start 05/13/20 at 18:00 Temazepam (Restoril) 15 mg PRN QHS PRN PO INSOMNIA Last administered on at 22:35; Start 05/13/20 at 18:00 Insulin Glargine (Lantus Syringe) 75 unit DAILY SQ Last administered on 05/18/20at 08:39; Start 05/17/20 at 09:00; Stop 05/23/20 at 09:03; Status DC Loperamide HCl (Imodium) 4 mg PRN TID PRN PO DIARRHEA Last administered on 05/22/20at 07:58; Start 05/17/20 at 22:30 Sodium Chloride 1,000 ml @ 75 mls/hr [id number] ONCE IV Last administered on 05/18/20at 11:22; Start 05/18/20 at 11:15; Stop 05/19/20 at 00:34; Status DC Heparin Sodium (Porcine) (Heparin Sodium) 5,000 unit Q12HR SQ Last administered on 05/29/20at 09:11; Start 05/19/20 at 09:00 Dicyclomine HCl (Bentyl) 10 mg PRN TID PRN PO GAS / BLOATING Last administered on 05/26/20at 08:26; Start 05/18/20 at 22:15 Lorazepam (Ativan) 1 mg PRN Q8HRS PRN PO ANXIETY / AGITATION Last administered on 05/28/20at 09:26; Start 05/18/20 at 22:15 Dexmedetomidine HCl 400 mcg/ Sodium Chloride 100 ml @ 6.99 mls/hr CONT PRN IV PER PROTOCOL Last administered on 05/21/20at 10:38; Start 05/19/20 at 09:45; Stop 05/21/20 at 16:18; Status DC Sodium Chloride 500 ml @ 500 mls/hr 1X PRN PRN IV SEE COMMENTS; Start 05/19/20 at 09:45; Stop 05/21/20 at 16:18; Status DC Atropine Sulfate (ATROPINE 0.5mg SYRINGE) 0.5 mg PRN Q5MIN PRN IV SEE COMMENTS; Start 05/19/20 at 09:45; Stop 05/21/20 at 16:18; Status DC Sodium Bicarbonate (Sodium Bicarb Adult 8.4% Syr) 50 meq 1X ONCE IV Last administered on 05/19/20at 16:51; Start 05/19/20 at 16:30; Stop 05/19/20 at 16:34; Status DC Lidocaine HCl (Buffered Lidocaine 1%) 3 ml STK-MED ONCE .ROUTE ; Start 05/20/20 at 10:52; Stop 05/20/20 at 10:52; Status DC Heparin Sodium (Porcine) (Heparin Sodium) 10,000 unit STK-MED ONCE .ROUTE ; Start 05/20/20 at 10:52; Stop 05/20/20 at 10:52; Status DC Lidocaine HCl (Buffered Lidocaine 1%) 6 ml 1X ONCE INJ Last administered on 05/20/20at 11:22; Start 05/20/20 at 11:00; Stop 05/20/20 at 11:01; Status DC Heparin Sodium (Porcine) (Heparin Sodium) 2,500 unit 1X ONCE INT CAT Last administered on 05/20/20at 11:26; Start 05/20/20 at 11:00; Stop 05/20/20 at 11:01; Status DC Sodium Chloride 1,000 ml @ 1,000 mls/hr Q1H PRN IV hypotension; Start 05/20/20 at 13:00; Stop 05/20/20 at 18:59; Status DC Albumin Human 200 ml @ 200 mls/hr 1X PRN PRN IV Hypotension Last administered on 05/20/20at 13:48; Start 05/20/20 at 13:00; Stop 05/20/20 at 18:59; Status DC Sodium Chloride 1,000 ml @ 400 mls/hr Q2H30M PRN IV PATENCY; Start 05/20/20 at 13:00; Stop 05/21/20 at 00:59; Status DC Info (PHARMACY MONITORING -- do not chart) 1 each PRN DAILY PRN MC SEE COMMENTS; Start 05/20/20 at 13:00; Status Cancel Sodium Chloride 1,000 ml @ 1,000 mls/hr Q1H PRN IV hypotension; Start 05/21/20 at 07:45; Stop 05/21/20 at 13:44; Status DC Albumin Human 200 ml @ 200 mls/hr 1X PRN PRN IV Hypotension; Start 05/21/20 at 07:45; Stop 05/21/20 at 13:44; Status DC Sodium Chloride 1,000 ml @ 400 mls/hr Q2H30M PRN IV PATENCY; Start 05/21/20 at 07:45; Stop 05/21/20 at 19:44; Status DC Info (PHARMACY MONITORING -- do not chart) 1 each PRN DAILY PRN MC SEE COMMENTS; Start 05/21/20 at 07:45; Status UNV Info (PHARMACY MONITORING -- do not chart) 1 each PRN DAILY PRN MC SEE COMMENTS; Start 05/21/20 at 07:45; Status Cancel Sodium Chloride 1,000 ml @ 1,000 mls/hr Q1H PRN IV hypotension; Start 05/22/20 at 08:00; Stop 05/22/20 at 13:59; Status DC Albumin Human 200 ml @ 200 mls/hr 1X PRN PRN IV Hypotension Last administered on 05/22/20at 09:13; Start 05/22/20 at 08:00; Stop 05/22/20 at 13:59; Status DC Sodium Chloride (Normal Saline Flush) 10 ml 1X PRN PRN IV AP catheter pack; Start 05/22/20 at 08:00; Stop 05/23/20 at 07:59; Status DC Sodium Chloride (Normal Saline Flush) 10 ml 1X PRN PRN IV SIDE DOOR MAN catheter pack; Start 05/22/20 at 08:00; Stop 05/23/20 at 07:59; Status DC Sodium Chloride 1,000 ml @ 400 mls/hr Q2H30M PRN IV PATENCY; Start 05/22/20 at 08:00; Stop 05/22/20 at 19:59; Status DC Info (PHARMACY MONITORING -- do not chart) 1 each PRN DAILY PRN MC SEE COMMENTS; Start 05/22/20 at 08:00; Status UNV Info (PHARMACY MONITORING -- do not chart) 1 each PRN DAILY PRN MC SEE COMMENTS; Start 05/22/20 at 08:00; Status Cancel Sodium Chloride 1,000 ml @ 1,000 mls/hr Q1H PRN IV hypotension; Start 05/23/20 at 07:45; Stop 05/23/20 at 13:44; Status DC Albumin Human 200 ml @ 200 mls/hr 1X PRN PRN IV Hypotension; Start 05/23/20 at 07:45; Stop 05/23/20 at 13:44; Status DC Sodium Chloride 1,000 ml @ 400 mls/hr Q2H30M PRN IV PATENCY; Start 05/23/20 at 07:45; Stop 05/23/20 at 19:44; Status DC Info (PHARMACY MONITORING -- do not chart) 1 each PRN DAILY PRN MC SEE COMMENTS; Start 05/23/20 at 07:45; Status UNV Info (PHARMACY MONITORING -- do not chart) 1 each PRN DAILY PRN MC SEE COMMENTS; Start 05/23/20 at 07:45; Status Cancel Insulin Glargine (Lantus Syringe) 50 unit DAILY SQ Last administered on 05/26/20at 09:08; Start 05/23/20 at 10:00; Stop 05/27/20 at 08:29; Status DC Amino Acids/ Glycerin/ Electrolytes 1,000 ml @ 80 mls/hr [id number] IV Last administered on 05/29/20at 08:41; Start 05/23/20 at 11:45 Sodium Chloride 1,000 ml @ 1,000 mls/hr Q1H PRN IV hypotension; Start 05/24/20 at 08:00; Stop 05/24/20 at 13:59; Status DC Albumin Human 200 ml @ 200 mls/hr 1X PRN PRN IV Hypotension; Start 05/24/20 at 08:00; Stop 05/24/20 at 13:59; Status DC Sodium Chloride (Normal Saline Flush) 10 ml 1X PRN PRN IV AP catheter pack; Start 05/24/20 at 08:00; Stop 05/25/20 at 07:59; Status DC Sodium Chloride (Normal Saline Flush) 10 ml 1X PRN PRN IV SIDE DOOR MAN catheter pack; Start 05/24/20 at 08:00; Stop 05/25/20 at 07:59; Status DC Sodium Chloride 1,000 ml @ 400 mls/hr Q2H30M PRN IV PATENCY; Start 05/24/20 at 08:00; Stop 05/24/20 at 19:59; Status DC Info (PHARMACY MONITORING -- do not chart) 1 each PRN DAILY PRN MC SEE COMMENTS; Start 05/24/20 at 08:00; Status UNV Info (PHARMACY MONITORING -- do not chart) 1 each PRN DAILY PRN MC SEE COMMENTS; Start 05/24/20 at 08:00; Stop 05/28/20 at 10:33; Status DC Fluconazole (Diflucan) 200 mg DAILY08 PO Last administered on 05/29/20at 08:41; Start 05/26/20 at 12:00; Stop 06/01/20 at 08:01 Bisacodyl (Dulcolax Supp) 10 mg PRN DAILY PRN [place] CONSTIPATION Last administered on 05/26/20at 17:55; Start 05/26/20 at 17:45 Insulin Glargine (Lantus Syringe) 60 unit DAILY SQ Last administered on 05/27/20at 09:36; Start 05/27/20 at 09:00; Stop 05/28/20 at 08:38; Status DC Sodium Chloride 1,000 ml @ 1,000 mls/hr Q1H PRN IV hypotension; Start 05/27/20 at 11:00; Stop 05/27/20 at 16:59; Status DC Albumin Human 200 ml @ 200 mls/hr 1X PRN PRN IV Hypotension; Start 05/27/20 at 11:00; Stop 05/27/20 at 16:59; Status DC Info (PHARMACY MONITORING -- do not chart) 1 each PRN DAILY PRN MC SEE COMMENTS; Start 05/27/20 at 11:00 Insulin Glargine (Lantus Syringe) 65 unit DAILY SQ Last administered on 05/29/20at 09:12; Start 05/28/20 at 09:00 Insulin Human Lispro (HumaLOG) 10 units PRN [id number] PRN SQ Blood glucose > 200 mg/dL; Start 05/28/20 at 08:45 Gabapentin (Neurontin) 400 mg QHS PO ; Start 05/29/20 at 21:00 Darbepoetin Deepak (ARANESP for DIALYSIS PTS) 60 mcg WEEKLYHS SQ ; Start 05/29/20 at 21:00 Sodium Chloride 1,000 ml @ 1,000 mls/hr Q1H PRN IV hypotension; Start 05/29/20 at 10:45; Stop 05/29/20 at 16:44 Albumin Human 200 ml @ 200 mls/hr 1X PRN PRN IV Hypotension; Start 05/29/20 at 10:45; Stop 05/29/20 at 16:44 Sodium Chloride 1,000 ml @ 400 mls/hr Q2H30M PRN IV PATENCY; Start 05/29/20 at 10:45; Stop 05/29/20 at 22:44 Info (PHARMACY MONITORING -- do not chart) 1 each PRN DAILY PRN MC SEE COMMENTS; Start 05/29/20 at 10:45 Info (PHARMACY MONITORING -- do not chart) 1 each PRN DAILY PRN MC SEE COMMENTS; Start 05/29/20 at 10:45 Active Scripts Active Reported Renagel (Sevelamer Hcl) 800 Mg Tablet 2 Tab PO TID 30 Days Kelly-Jalen Rx Tablet (Vit B Cmplx 3/Fa/Vit C/Biotin) 1 Each Tablet 1 Tab PO DAILY MDD 1 Aspirin 81 Mg Tab.chew 1 Tab PO DAILY Coreg (Carvedilol) 25 Mg Tablet 25 Mg PO BIDWMEALS Vitamin C (Ascorbic Acid) 500 Mg Capsule.er 1,000 Mg PO DAILY08 D3-50 (Cholecalciferol (Vitamin D3)) 50,000 Unit Capsule 10,000 Unit PO DAILY08 Metolazone 5 Mg Tablet 5 Mg PO DAILY Gabapentin 600 Mg Tablet 600 Mg PO HS Gabapentin (Gabapentin) 300 Mg Capsule 300 Mg PO DAILY Lantus Solostar (Insulin Glargine,Hum.rec.anlog) 100 Unit/1 Ml Insuln.pen 75 Unit SQ BID Januvia (Sitagliptin Phosphate) 25 Mg Tablet 25 Mg PO DAILY Novolog (Insulin Aspart) 100 Unit/1 Ml Cartridge 0 SQ TIDAC Sliding scale; patient has printout (at home) of scale. Unknown at this time. Singulair Tablet (Montelukast Sodium) 10 Mg Tablet 10 Mg PO HS Atorvastatin Calcium 40 Mg Tablet 1 Tab PO QHS Torsemide 20 Mg Tablet 2 Tab PO BID Cymbalta (Duloxetine Hcl) 30 Mg Capsule.dr 1 Cap PO BID Daily Jalen (Multivitamin) 1 Each Tablet 1 Each PO DAILY Vitals/I & O Vital Sign - Last 24 Hours 05/28/20 05/28/20 05/28/20 05/28/20 15:30 15:45 19:17 20:00 Temp 97.4 96.8 97.4 96.8 Pulse 84 82 Resp 16 22 B/P (MAP) 142/65 (90) 154/59 (90) Pulse Ox 95 100 99 O2 Delivery Nasal Cannula NonRebreather Mask nonrebreather at 5l/NC @10L O2 Flow Rate 10.0 5.0 10.0 10.0 05/28/20 05/28/20 05/29/20 05/29/20 20:00 22:23 02:28 07:00 Temp 96.5 96.7 97.8 96.5 96.7 97.8 Pulse 82 81 86 Resp 22 22 20 B/P (MAP) 164/82 (109) 152/73 (99) 133/69 (90) Pulse Ox 97 98 98 O2 Delivery Venturi Mask nonrebreather at 5l/NC @10L nonrebreather at 5l/NC @10L nonrebreather at 5l/NC @10L O2 Flow Rate 6.0 10.0 10.0 10.0 05/29/20 05/29/20 05/29/20 05/29/20 07:00 08:00 08:42 11:00 Temp 98.2 98.2 Pulse 86 81 Resp 18 B/P (MAP) 133/69 132/60 (84) Pulse Ox 90 O2 Delivery Venturi Mask Nasal Cannula O2 Flow Rate 10.0 10.0 11.0 Intake and Output 05/28/20 05/28/20 05/29/20 15:00 23:00 07:00 Intake Total 1000 ml 0 ml Output Total 350 ml Balance 650 ml 0 ml Justicifation of Admission Dx: Justifications for Admission: Justification of Admission Dx: N/A SHANA CHAUDHARI MD May 29, 2020 12:20
[2020-05-29 19:30] VITALS: BP_SYST 12; BP_SYST 120; BP_DIAS 53
[2020-05-29] MEDS: GABAPENTIN 400 MG CAPSULE. PO SCH (20:13)
[2020-05-29] MEDS ORDERED: DARBEPOETIN ALFA 60 MCG/0.3 ML DISP.SYRIN. SQ SCH (21:00)
[2020-05-29 23:01] VITALS: BP 150/67
[2020-05-29] MEDS: TEMAZEPAM 15 MG CAPSULE PO PRN (23:03)
[2020-05-30] MEDS: AMINO AC 3%/ELECTROLYTE/GLYCER 1,000 ML IV SCH (01:25)
[2020-05-30 02:23] VITALS: BP 151/67
[2020-05-30 07:00] VITALS: BP 135/56
[2020-05-30] MEDS: ZINC SULFATE 220 MG CAPSULE. PO SCH (07:55)
[2020-05-30] MEDS: FOLIC/VIT B COMP W-C (RENAL) TABLET. PO SCH (07:55)
[2020-05-30] MEDS: LACTOBACILLUS RHAMNOSUS GG 1 CAPSULE. PO SCH ×2 (07:56→20:53)
[2020-05-30] MEDS: PANTOPRAZOLE 40 MG TABLET.DR. PO SCH (07:56)
[2020-05-30] MEDS: MULTIVITAMIN with MINERAL TABLET. PO SCH (07:56)
[2020-05-30] MEDS: SEVELAMER CARBONATE 800 MG TABLET. PO SCH ×3 (07:56→16:55)
[2020-05-30] MEDS: FLUCONAZOLE 100 MG TABLET. PO SCH (07:56)
[2020-05-30] MEDS: LINAGLIPTIN 5 MG TABLET PO SCH (07:56)
[2020-05-30] MEDS: DULoxetine HCL 30 MG CAPSULE.DR PO SCH ×2 (07:56→20:53)
[2020-05-30] MEDS: CARVEDILOL 12.5 MG TABLET. PO SCH ×2 (07:57→16:56)
[2020-05-30] MEDS: NYSTATIN TOPICAL POWDER 15GM BOTTLE. TP SCH ×2 (08:01→20:56)
[2020-05-30] MEDS: HEPARIN for SUB-Q USE 5,000 UNIT/ML VIAL. SQ SCH ×2 (08:11→21:15)
[2020-05-30] MEDS: INSULIN GLARGINE SYRINGE. SQ SCH (08:12)
--- NOTE | 2020-05-30 09:21 | PDOC ---
Provider Note Date of Service: DATE: 05/30/20 TIME: 09:24 Provider Note more alert now, but Na= 125 05/29, todays pending- i stopped yorsemide, but procalamine is hypotonic so will dc that as well, follow lytes- K+ high also, Justifications for Admission Other Justification VERNA GARCIA MD May 30, 2020 09:21
[2020-05-30 10:13] LABS: CALCIUM 9.1 mg/dL (8.5-10.1); CREATININE 2.9 mg/dL (0.6-1.0); GFR 16.8; POTASSIUM 5.1 mmol/L (3.5-5.1)
--- NOTE | 2020-05-30 10:14 | PDOC ---
PULMONARY PROGRESS NOTES DATE: 05/30/20 TIME: 10:12 Subjective Patient is more awake today On 10 liters VM no overnight concerns Vitals Vital Signs Date Time Temp Pulse Resp B/P (MAP) Pulse Ox O2 Delivery O2 Flow Rate FiO2 05/30/20 07:57 84 135/56 05/30/20 07:39 96 Venturi Mask 10.0 05/30/20 07:00 98.0 21 98.0 ROS: No Nausea, No Chest Pain, No Abdominal Pain, No Increase Cough General: Alert Lungs: Crackles Cardiovascular: S1, S2 Abdomen: Soft, Non-tender, Other (obese) Neuro Exam: Alert, Oriented Skin: Warm, Dry Labs Laboratory Tests Test 05/28/20 11:50 05/28/20 14:55 05/28/20 15:26 05/28/20 15:30 Glucose (Fingerstick) 184 mg/dL (70-99) White Blood Count 8.0 x10^3/uL (4.0-11.0) Red Blood Count 2.69 x10^6/uL (3.50-5.40) Hemoglobin 8.5 g/dL (12.0-15.5) Hematocrit 25.8 % (36.0-47.0) Mean Corpuscular Volume 96 fL (79-100) Mean Corpuscular Hemoglobin 32 pg (25-35) Mean Corpuscular Hemoglobin Concent 33 g/dL (31-37) Red Cell Distribution Width 16.4 % (11.5-14.5) Platelet Count 199 x10^3/uL (140-400) Neutrophils (%) (Auto) 62 % (31-73) Lymphocytes (%) (Auto) 21 % (24-48) Monocytes (%) (Auto) 12 % (0-9) Eosinophils (%) (Auto) 4 % (0-3) Basophils (%) (Auto) 1 % (0-3) Neutrophils # (Auto) 5.0 x10^3/uL (1.8-7.7) Lymphocytes # (Auto) 1.7 x10^3/uL (1.0-4.8) Monocytes # (Auto) 0.9 x10^3/uL (0.0-1.1) Eosinophils # (Auto) 0.3 x10^3/uL (0.0-0.7) Basophils # (Auto) 0.1 x10^3/uL (0.0-0.2) Segmented Neutrophils % 57 % (35-66) Band Neutrophils % 5 % (0-9) Lymphocytes % 23 % (24-48) Monocytes % 13 % (0-10) Eosinophils % 2 % (0-5) Platelet Estimate Adequate (ADEQUATE) Large Platelets Present Polychromasia Present Basophilic Stippling Present Anisocytosis Present Sodium Level 128 mmol/L (136-145) Potassium Level 5.5 mmol/L (3.5-5.1) Chloride Level 93 mmol/L (98-107) Carbon Dioxide Level 29 mmol/L (21-32) Anion Gap 6 (6-14) Blood Urea Nitrogen 55 mg/dL (7-20) Creatinine 4.1 mg/dL (0.6-1.0) Estimated GFR (Cockcroft-Gault) 11.3 Glucose Level 159 mg/dL (70-99) Calcium Level 9.0 mg/dL (8.5-10.1) C-Reactive Protein, Quantitative 8.5 mg/L (0-3.3) Vitamin B12 Level 583 pg/mL (247-911) Thyroid Stimulating Hormone (TSH) 0.979 uIU/mL (0.358-3.74) Ammonia 12 mcmol/L (11-34) O2 Saturation 92 % (92-99) Arterial Blood pH 7.31 (7.35-7.45) Arterial Blood pCO2 at Patient Temp 58 mmHg (35-46) Arterial Blood pO2 at Patient Temp 64 mmHg (75-108) Arterial Blood HCO3 28 mmol/L (21-28) Arterial Blood Base Excess 1 mmol/L (-3-3) FiO2 60/5l nc + 5l nrb Test 05/28/20 17:02 05/28/20 20:20 05/29/20 07:41 05/29/20 09:30 Glucose (Fingerstick) 164 mg/dL (70-99) 145 mg/dL (70-99) 176 mg/dL (70-99) Sodium Level 125 mmol/L (136-145) Potassium Level 5.7 mmol/L (3.5-5.1) Chloride Level 91 mmol/L (98-107) Carbon Dioxide Level 29 mmol/L (21-32) Anion Gap 5 (6-14) Blood Urea Nitrogen 63 mg/dL (7-20) Creatinine 4.2 mg/dL (0.6-1.0) Estimated GFR (Cockcroft-Gault) 10.9 Glucose Level 158 mg/dL (70-99) Calcium Level 9.6 mg/dL (8.5-10.1) Test 05/29/20 11:38 05/29/20 20:23 Glucose (Fingerstick) 204 mg/dL (70-99) 259 mg/dL (70-99) Laboratory Tests Test 05/29/20 11:38 05/29/20 20:23 Glucose (Fingerstick) 204 mg/dL (70-99) 259 mg/dL (70-99) Medications Active Scripts Medications Dose Route/Sig Max Daily Dose Days Date Category Dose Instructions Gabapentin 600 Mg Tablet 600 Mg PO HS 04/27/20 Reported Gabapentin (Gabapentin) 300 Mg Capsule 300 Mg PO DAILY 04/27/20 Reported Lantus Solostar (Insulin Glargine,Hum.rec.anlog) 100 Unit/1 Ml Insuln.pen 75 Unit SQ BID 09/19/19 Reported Januvia (Sitagliptin Phosphate) 25 Mg Tablet 25 Mg PO DAILY 09/19/19 Reported Novolog (Insulin Aspart) 100 Unit/1 Ml Cartridge 0 SQ TIDAC 01/26/19 Reported Sliding scale; patient has printout (at home) of scale. Unknown at this time. Singulair Tablet (Montelukast Sodium) 10 Mg Tablet 10 Mg PO HS 11/24/18 Reported Atorvastatin Calcium 40 Mg Tablet 1 Tab PO QHS 11/24/18 Reported Torsemide 20 Mg Tablet 2 Tab PO BID 11/24/18 Reported Cymbalta (Duloxetine Hcl) 30 Mg Capsule. 1 Cap PO BID 11/24/18 Reported Daily Jalen (Multivitamin) 1 Each Tablet 1 Each PO DAILY 11/24/18 Reported Comments CXR 05/20 IMPRESSION: Slightly improved diffuse bilateral opacities. CTA chest IMPRESSION: 1. No evidence of pulmonary thromboembolic disease. 2. Multifocal bilateral groundglass opacities and consolidations, consistent with patient's history of infection. 3. Dilated pulmonary trunk, which can be seen with pulmonary hypertension. Impression . IMPRESSION: 1. Acute hypoxemic respiratory failure secondary to COVID-19 viral pneumonia./ ALI/ARDS-- 2. COVID-[address] angiogram, no evidence of pulmonary embolism. 4. Chronic kidney disease, previously peritoneal dialysis, now HD 5. Morbid obesity. 6. Obstructive sleep apnea. 7. Hyperlipidemia. 8. Hypertension. Plan . PLAN: Continue supplemental oxygen to keep oxygen saturations 90%, on 10 liters VM Pt. has completed full course of steroids monitor off ABX Pt. has completed Full course of remdesivir Follow nephrology recommendations now on HD, Continue PPN for nutritional support, in addition to po intake as tolerated Physical therapy/Occupational Therapy DVT/GI prophylaxis Discussed with RN patient is a DNR/DNI Social work for D/C planning -- has been declined at RAFAL SANCHEZ MD May 30, 2020 10:14
--- NOTE | 2020-05-30 10:25 | PDOC ---
DATE OF SERVICE DATE: 05/30/20 TIME: 10:22 SUBJECTIVE ROS Sitting up in chair, states feeling better OBJECTIVE Vital Signs Vital Signs Date Time Temp Pulse Resp B/P (MAP) Pulse Ox O2 Delivery O2 Flow Rate FiO2 05/30/20 07:57 84 135/56 05/30/20 07:39 96 Venturi Mask 10.0 05/30/20 07:00 98.0 21 98.0 I & 0 Intake and Output 05/30/20 07:00 Intake Total 1500 ml Output Total 625 ml Balance 875 ml Intake Oral 500 ml IV Total 1000 ml Output Urine Total 625 ml # Bowel Movements 3 PHYSICAL EXAM Physical Exam General Appearance: NAD HEEN Venturi mask , hard of hearing neck supple Lungs : decreased breath sounds, non labored Heart: S1S2 Abdomen: soft, obese , PD cath in place Extremities: Edema mild Neurology: alert, oriented DIAGNOSIS/ASSESSMENT Assessment & Plan ESRD - switched from PD to HD , no indication for HD today . PD on hold Access- Temp HDC (has PD catheter as well) HypoNatremia- On Cymbalta and PPI . Recommend DC/or switch Cymbalta - defer to Primary Acute hypoxemic respiratory failure secondary to COVID-19 viral pneumonia./ ALI/ARDS- No recent CxR - last 05/20 reported stable infiltrates She has completed full course of steroids and remdesivir COVID-19 viral pneumonia, recovered CT angiogram, no evidence of pulmonary embolism. Morbid obesity. Obstructive sleep apnea. COMMENT/RELEVANT DATA Meds Current Medications Medications (Trade) Dose Ordered Sig/Mya Start Time Stop Time Status Last Admin Dose Admin Acetaminophen (Tylenol) 650 mg PRN Q4HRS PRN 04/27/20 23:15 05/26/20 08:26 650 MG Albumin Human 200 ml @ 200 mls/hr 1X PRN PRN 05/29/20 10:45 05/29/20 16:44 DC Amino Acids/ Glycerin/ Electrolytes 1,000 ml @ 80 mls/hr [id number] 05/23/20 11:45 05/30/20 09:21 DC 05/30/20 01:25 80 MLS/HR Ascorbic Acid (Vitamin C) 1,000 mg DAILY 04/28/20 13:00 04/30/20 08:57 DC 04/30/20 08:11 1,000 MG Atorvastatin Calcium (Lipitor) 40 mg QHS 04/27/20 21:00 04/30/20 08:57 DC 04/29/20 19:57 40 MG Atropine Sulfate (ATROPINE 0.5mg SYRINGE) 0.5 mg PRN Q5MIN PRN 05/19/20 09:45 05/21/20 16:18 DC Azithromycin 250 ml @ 250 mls/hr 1X ONCE 04/26/20 23:00 04/26/20 23:59 DC 04/26/20 23:18 250 MLS/HR Bisacodyl (Dulcolax Supp) 10 mg PRN DAILY PRN 05/26/20 17:45 05/26/20 17:55 10 MG Carvedilol (Coreg) 25 mg BIDWMEALS 05/01/20 17:00 05/30/20 07:57 25 MG Ceftriaxone Sodium (Rocephin) 1 gm Q24H 04/28/20 13:00 05/03/20 09:20 DC 05/02/20 12:20 1 GM Cyclobenzaprine HCl (Flexeril) 10 mg PRN QID PRN 04/28/20 21:00 05/28/20 09:26 10 MG Darbepoetin Deepak (ARANESP for DIALYSIS PTS) 60 mcg WEEKLYHS 05/29/20 21:00 05/29/20 20:14 60 MCG Dexamethasone (Decadron) 4 mg DAILYWBKFT 05/04/20 08:00 05/06/20 08:33 DC 05/06/20 08:15 4 MG Dexmedetomidine HCl 400 mcg/ Sodium Chloride 100 ml @ 6.99 mls/hr CONT PRN 05/19/20 09:45 05/21/20 16:18 DC 05/21/20 10:38 6.99 MLS/HR Dextrose (Dextrose 50%-Water Syringe) 12.5 gm PRN Q15MIN PRN 04/27/20 04:00 05/03/20 18:50 25 GM Dicyclomine HCl (Bentyl) 10 mg PRN TID PRN 05/18/20 22:15 05/26/20 08:26 10 MG Docusate Sodium (Colace) 100 mg BID 05/01/20 12:45 05/13/20 18:00 DC 05/13/20 09:01 100 MG Doxycycline Hyclate (Vibra-Tab) 100 mg BID 04/28/20 13:00 05/03/20 09:20 DC 05/03/20 08:36 100 MG Duloxetine HCl (Cymbalta) 30 mg BID 04/27/20 09:00 05/30/20 07:56 30 MG Enoxaparin Sodium (Lovenox 30mg Syringe) 30 mg Q24H 04/28/20 13:00 04/28/20 12:38 DC Fluconazole (Diflucan) 200 mg DAILY08 05/26/20 12:00 06/01/20 08:01 05/30/20 07:56 200 MG Gabapentin (Neurontin) 400 mg QHS 05/29/20 21:00 05/29/20 20:13 400 MG Heparin Sodium (Porcine) (Heparin Sodium) 2,500 unit 1X ONCE 05/20/20 11:00 05/20/20 11:01 DC 05/20/20 11:26 2,500 UNIT Info (CONTRAST GIVEN -- Rx MONITORING) 1 each PRN DAILY PRN 04/26/20 20:45 04/28/20 20:44 DC Info (PHARMACY MONITORING -- do not chart) 1 each PRN DAILY PRN 05/29/20 10:45 Insulin Glargine (Lantus Syringe) 65 unit DAILY 05/28/20 09:00 05/30/20 08:12 65 UNIT Insulin Human Lispro (HumaLOG) 10 units PRN BFRMEALHC PRN 05/28/20 08:45 05/29/20 12:27 10 UNITS Iohexol (Omnipaque 350 Mg/ml) 100 ml 1X ONCE 04/26/20 20:45 04/26/20 20:46 DC 04/26/20 21:20 100 ML Lactobacillus Rhamnosus (Culturelle) 1 cap BID 04/29/20 21:00 05/30/20 07:56 1 CAP Lactulose (Lactulose) 20 gm PRN 1X PRN 05/03/20 13:45 05/13/20 16:48 DC 05/12/20 15:41 20 GM Lidocaine HCl (Buffered Lidocaine 1%) 6 ml 1X ONCE 05/20/20 11:00 05/20/20 11:01 DC 05/20/20 11:22 3 ML Linagliptin (Tradjenta) 5 mg DAILY 04/27/20 09:00 05/30/20 07:56 5 MG Loperamide HCl (Imodium) 4 mg PRN TID PRN 05/17/20 22:30 05/22/20 07:58 4 MG Lorazepam (Ativan) 1 mg PRN Q8HRS PRN 05/18/20 22:15 05/28/20 09:26 1 MG Magnesium Sulfate 50 ml @ 25 mls/hr PRN DAILY PRN 05/11/20 14:15 Montelukast Sodium (Singulair) 10 mg HS 04/27/20 21:00 04/30/20 08:57 DC 04/29/20 19:57 10 MG Multivitamins (Thera M Plus) 1 tab DAILY 04/27/20 09:00 05/30/20 07:56 1 TAB Non-Formulary Medication (Gabapentin ) 600 mg HS 04/27/20 21:00 UNV Nystatin (Nystop) 1 jackie BID 05/08/20 21:00 UNV Ondansetron HCl (Zofran Odt) 4 mg PRN Q6HRS PRN 04/28/20 12:15 05/25/20 16:31 4 MG Ondansetron HCl (Zofran) 4 mg PRN Q8HRS PRN 04/26/20 22:45 04/27/20 22:44 DC Pantoprazole Sodium (PROTONIX VIAL for IV PUSH) 40 mg DAILY 05/02/20 09:00 05/07/20 15:25 DC 05/07/20 08:22 40 MG Pantoprazole Sodium (Protonix) 40 mg DAILYAC 05/08/20 07:30 05/30/20 07:56 40 MG Polyethylene Glycol (miraLAX PACKET) 34 gm PRN BID PRN 05/13/20 18:00 05/26/20 08:25 34 GM Potassium Chloride/Water 100 ml @ 100 mls/hr Q1H 05/01/20 15:00 05/01/20 18:59 DC 05/01/20 19:55 100 MLS/HR Potassium Chloride (Klor-Con) 20 meq DAILYWBKFT 05/02/20 08:00 05/29/20 08:40 DC 05/28/20 08:00 20 MEQ Remdesivir 100 mg/ Sodium Chloride 230 ml @ 460 mls/hr Q24H 04/29/20 14:00 05/02/20 14:29 DC 05/02/20 14:27 460 MLS/HR Remdesivir 200 mg/ Sodium Chloride 210 ml @ 210 mls/hr 1X ONCE 04/28/20 14:00 04/28/20 14:59 DC 04/28/20 15:39 210 MLS/HR Sevelamer Carbonate (Renvela) 1,600 mg TIDWMEALS 05/02/20 17:00 05/30/20 07:56 1,600 MG Simethicone (Gas-X) 80 mg PRN AFTMEALHC PRN 05/10/20 15:30 05/27/20 22:35 80 MG Sodium Bicarbonate (Sodium Bicarb Adult 8.4% Syr) 50 meq 1X ONCE 05/19/20 16:30 05/19/20 16:34 DC 05/19/20 16:51 50 MEQ Sodium Chloride 1,000 ml @ 400 mls/hr Q2H30M PRN 05/29/20 10:45 05/29/20 22:44 DC Sodium Chloride (Normal Saline Flush) 10 ml 1X PRN PRN 05/24/20 08:00 05/25/20 07:59 DC Sterile Water (WATER for RESP) 1,000 ml CONT PRN 04/30/20 20:30 05/18/20 23:51 1,000 ML Temazepam (Restoril) 15 mg PRN QHS PRN 05/13/20 18:00 05/29/20 23:03 15 MG Torsemide (Demadex) 40 mg [id number] 04/27/20 09:00 05/29/20 08:40 DC 05/28/20 09:26 40 MG Vitamin B Complex/ Vitamin C (Kelly-Jalen) 1 tab DAILY 04/29/20 14:00 05/30/20 07:55 1 TAB Vitamin D (Vitamin D3) 500 unit DAILY 04/28/20 13:00 04/30/20 08:57 DC 04/30/20 08:10 500 UNIT Zinc Sulfate (Orazinc) 220 mg DAILY 04/28/20 13:00 05/30/20 07:55 220 MG Lab Laboratory Tests Test 05/29/20 11:38 05/29/20 20:23 05/30/20 09:20 Glucose (Fingerstick) 204 mg/dL (70-99) 259 mg/dL (70-99) Sodium Level 124 mmol/L (136-145) Potassium Level 5.1 mmol/L (3.5-5.1) Chloride Level 92 mmol/L (98-107) Carbon Dioxide Level 29 mmol/L (21-32) Anion Gap 3 (6-14) Blood Urea Nitrogen 42 mg/dL (7-20) Creatinine 2.9 mg/dL (0.6-1.0) Estimated GFR (Cockcroft-Gault) 16.8 Glucose Level 163 mg/dL (70-99) Calcium Level 9.1 mg/dL (8.5-10.1) Results All relevant outside records, renal labs, imaging studies, telemetry/EKG's were reviewed. Justicifation of Admission Dx: Justifications for Admission: Justification of Admission Dx: N/A FLORINA TRONCOSO MD May 30, 2020 10:25
[2020-05-30 10:55] VITALS: BP 147/57
--- NOTE | 2020-05-30 12:10 | NUR ---
SS following up with discharge planning. SS reviewed pt chart and discussed with pt RN. Pt is currently requiring oxygen via venti mask at thirteen liters and nasal canula at five liters. COVID19 recovered. Pt clinically accepted at [facility], ; fax [phone]. [facility] declining authorization for LTACH. Peer to peer done and denied by insurance. Written appeal in process. SS will continue to follow for discharge planning.
[2020-05-30 15:01] VITALS: BP 151/77
--- NOTE | 2020-05-30 15:20 | PDOC ---
PROGRESS NOTES Date of Service DATE: 05/30/20 TIME: 15:19 Assessment Problems Medical Problems: (1) CAP (community acquired pneumonia) Status: Acute (2) COVID-19 Status: Acute Metabolic encephalopathy, CT head negative, much better after BiPAP 05/28. She did have abnormal blood gas, 05/28, worse hypercarbia than before. Other lab work is negative COVID- pneumonia, hypertension, sleep apnea, obesity Plan Continue treating pulmonary issues, no need for additional neurological studies. Subjective None Objective Vital Signs Date Time Temp Pulse Resp B/P (MAP) Pulse Ox O2 Delivery O2 Flow Rate FiO2 05/30/20 15:01 98.0 84 20 151/77 (101) 93 Nasal Cannula 11.0 98.0 Intake and Output 05/30/20 07:00 Intake Total 1500 ml Output Total 625 ml Balance 875 ml Intake Oral 500 ml IV Total 1000 ml Output Urine Total 625 ml # Bowel Movements 3 PHYSICAL EXAM Alert. Oriented to time, place and person. No hallucinations PERRL. EOMI. CN: no focal findings. Muscle tone: normal. Muscle strength: 4/5 DTR: 0-1+ Plantar reflex: Flexor Gait: not examined in bed. Sensory exam: no abnormal findings. No cerebellar signs elicited. Review of Relevant I have reviewed the following items louann (where applicable) has been applied. Labs Laboratory Tests Test 05/28/20 15:26 05/28/20 15:30 05/28/20 17:02 05/28/20 20:20 Ammonia 12 mcmol/L (11-34) O2 Saturation 92 % (92-99) Arterial Blood pH 7.31 (7.35-7.45) Arterial Blood pCO2 at Patient Temp 58 mmHg (35-46) Arterial Blood pO2 at Patient Temp 64 mmHg (75-108) Arterial Blood HCO3 28 mmol/L (21-28) Arterial Blood Base Excess 1 mmol/L (-3-3) FiO2 60/5l nc + 5l nrb Glucose (Fingerstick) 164 mg/dL (70-99) 145 mg/dL (70-99) Test 05/29/20 07:41 05/29/20 09:30 05/29/20 11:38 05/29/20 20:23 Glucose (Fingerstick) 176 mg/dL (70-99) 204 mg/dL (70-99) 259 mg/dL (70-99) Sodium Level 125 mmol/L (136-145) Potassium Level 5.7 mmol/L (3.5-5.1) Chloride Level 91 mmol/L (98-107) Carbon Dioxide Level 29 mmol/L (21-32) Anion Gap 5 (6-14) Blood Urea Nitrogen 63 mg/dL (7-20) Creatinine 4.2 mg/dL (0.6-1.0) Estimated GFR (Cockcroft-Gault) 10.9 Glucose Level 158 mg/dL (70-99) Calcium Level 9.6 mg/dL (8.5-10.1) Test 05/30/20 07:46 05/30/20 09:20 05/30/20 11:59 Glucose (Fingerstick) 174 mg/dL (70-99) 198 mg/dL (70-99) Sodium Level 124 mmol/L (136-145) Potassium Level 5.1 mmol/L (3.5-5.1) Chloride Level 92 mmol/L (98-107) Carbon Dioxide Level 29 mmol/L (21-32) Anion Gap 3 (6-14) Blood Urea Nitrogen 42 mg/dL (7-20) Creatinine 2.9 mg/dL (0.6-1.0) Estimated GFR (Cockcroft-Gault) 16.8 Glucose Level 163 mg/dL (70-99) Calcium Level 9.1 mg/dL (8.5-10.1) Laboratory Tests Test 05/29/20 20:23 05/30/20 07:46 05/30/20 09:20 05/30/20 11:59 Glucose (Fingerstick) 259 mg/dL (70-99) 174 mg/dL (70-99) 198 mg/dL (70-99) Sodium Level 124 mmol/L (136-145) Potassium Level 5.1 mmol/L (3.5-5.1) Chloride Level 92 mmol/L (98-107) Carbon Dioxide Level 29 mmol/L (21-32) Anion Gap 3 (6-14) Blood Urea Nitrogen 42 mg/dL (7-20) Creatinine 2.9 mg/dL (0.6-1.0) Estimated GFR (Cockcroft-Gault) 16.8 Glucose Level 163 mg/dL (70-99) Calcium Level 9.1 mg/dL (8.5-10.1) Microbiology 04/26/20 Blood Culture - Final, Complete NO GROWTH AFTER 5 DAYS Medications Current Medications Sodium Chloride 1,000 ml @ 1,000 mls/hr 1X ONCE IV Last administered on 04/26/20at 19:17; Start 04/26/20 at 19:15; Stop 04/26/20 at 20:14; Status DC Iohexol (Omnipaque 350 Mg/ml) 100 ml 1X ONCE IV Last administered on 04/26/20at 21:20; Start 04/26/20 at 20:45; Stop 04/26/20 at 20:46; Status DC Info (CONTRAST GIVEN -- Rx MONITORING) 1 each PRN DAILY PRN MC SEE COMMENTS; Start 04/26/20 at 20:45; Stop 04/28/20 at 20:44; Status DC Ceftriaxone Sodium (Rocephin) 1 gm 1X ONCE IVP Last administered on 04/26/20at 23:18; Start 04/26/20 at 23:00; Stop 04/26/20 at 23:01; Status DC Azithromycin 250 ml @ 250 mls/hr 1X ONCE IV Last administered on 04/26/20at 23:18; Start 04/26/20 at 23:00; Stop 04/26/20 at 23:59; Status DC Ondansetron HCl (Zofran) 4 mg PRN Q8HRS PRN IV NAUSEA/VOMITING 1ST CHOICE; Start 04/26/20 at 22:45; Stop 04/27/20 at 22:44; Status DC Acetaminophen (Tylenol) 650 mg PRN Q4HRS PRN PO FEVER > 100.3'F Last administered on 04/27/20at 16:47; Start 04/26/20 at 22:45; Stop 04/27/20 at 22:44; Status DC Atorvastatin Calcium (Lipitor) 40 mg QHS PO Last administered on 04/29/20at 19:57; Start 04/27/20 at 21:00; Stop 04/30/20 at 08:57; Status DC Duloxetine HCl (Cymbalta) 30 mg BID PO Last administered on 05/30/20at 07:56; Start 04/27/20 at 09:00 Gabapentin (Neurontin) 300 mg DAILY PO ; Start 04/27/20 at 04:30; Status Cancel Montelukast Sodium (Singulair) 10 mg HS PO Last administered on 04/29/20at 19:57; Start 04/27/20 at 21:00; Stop 04/30/20 at 08:57; Status DC Torsemide (Demadex) 40 mg [id number] PO Last administered on 05/28/20at 09:26; Start 04/27/20 at 09:00; Stop 05/29/20 at 08:40; Status DC Non-Formulary Medication (Gabapentin ) 600 mg HS PO ; Start 04/27/20 at 21:00; Status UNV Insulin Human Lispro (HumaLOG) 25 units TIDWMEALS SQ Last administered on 04/29/20at 08:34; Start 04/27/20 at 08:00; Stop 04/29/20 at 08:56; Status DC Insulin Glargine (Lantus Syringe) 75 unit BID SQ Last administered on 04/29/20at 08:35; Start 04/27/20 at 09:00; Stop 04/29/20 at 08:56; Status DC Multivitamins (Thera M Plus) 1 tab DAILY PO Last administered on 05/30/20at 07:56; Start 04/27/20 at 09:00 Linagliptin (Tradjenta) 5 mg DAILY PO Last administered on 05/30/20at 07:56; Start 04/27/20 at 09:00 Gabapentin (Neurontin) 600 mg TID STAT PO ; Start 04/27/20 at 03:51; Stop 04/27/20 at 03:52; Status UNV Dextrose (Dextrose 50%-Water Syringe) 12.5 gm PRN Q15MIN PRN IV SEE COMMENTS Last administered on 05/03/20at 18:50; Start 04/27/20 at 04:00 Gabapentin (Neurontin) 600 mg QHS PO Last administered on 05/27/20at 20:36; Start 04/27/20 at 04:30; Stop 05/29/20 at 08:56; Status DC Acetaminophen (Tylenol) 650 mg PRN Q4HRS PRN PEG MILD PAIN / TEMP > 100.3'F; Start 04/27/20 at 23:00; Status Cancel Acetaminophen (Tylenol) 650 mg PRN Q4HRS PRN PO MILD PAIN / TEMP > 100.3'F Last administered on 05/26/20at 08:26; Start 04/27/20 at 23:15 Remdesivir 200 mg/ Sodium Chloride 210 ml @ 210 mls/hr 1X ONCE IV Last administered on 04/28/20at 15:39; Start 04/28/20 at 14:00; Stop 04/28/20 at 14:59; Status DC Remdesivir 100 mg/ Sodium Chloride 230 ml @ 460 mls/hr Q24H IV ; Start 04/29/20 at 14:00; Stop 05/02/20 at 14:29; Status Cancel Ondansetron HCl (Zofran Odt) 4 mg PRN Q6HRS PRN PO NAUSEA/VOMITING Last administered on 05/25/20at 16:31; Start 04/28/20 at 12:15 Heparin Sodium (Porcine) (Heparin Sodium) 5,000 unit Q8HRS SQ Last administered on 05/18/20at 05:45; Start 04/28/20 at 14:00; Stop 05/18/20 at 14:14; Status DC Dexamethasone (Decadron) 6 mg DAILYWBKFT PO Last administered on 05/03/20at 08:37; Start 04/29/20 at 08:00; Stop 05/03/20 at 10:09; Status DC Dexamethasone (Decadron) 6 mg 1X ONCE PO Last administered on 04/28/20at 12:34; Start 04/28/20 at 13:00; Stop 04/28/20 at 13:01; Status DC Enoxaparin Sodium (Lovenox 30mg Syringe) 30 mg Q24H SQ ; Start 04/28/20 at 13:00; Stop 04/28/20 at 12:38; Status DC Doxycycline Hyclate (Vibra-Tab) 100 mg BID PO Last administered on 05/03/20at 08:36; Start 04/28/20 at 13:00; Stop 05/03/20 at 09:20; Status DC Ceftriaxone Sodium (Rocephin) 1 gm Q24H IVP Last administered on 05/02/20at 12:20; Start 04/28/20 at 13:00; Stop 05/03/20 at 09:20; Status DC Zinc Sulfate (Orazinc) 220 mg DAILY PO Last administered on 05/30/20at 07:55; Start 04/28/20 at 13:00 Vitamin D (Vitamin D3) 500 unit DAILY PO Last administered on 04/30/20at 08:10; Start 04/28/20 at 13:00; Stop 04/30/20 at 08:57; Status DC Ascorbic Acid (Vitamin C) 1,000 mg DAILY PO Last administered on 04/30/20at 08:11; Start 04/28/20 at 13:00; Stop 04/30/20 at 08:57; Status DC Temazepam (Restoril) 15 mg PRN QHS PRN PO INSOMNIA Last administered on 04/28/20at 22:48; Start 04/28/20 at 21:00; Stop 04/29/20 at 06:48; Status DC Cyclobenzaprine HCl (Flexeril) 10 mg PRN QID PRN PO MUSCLE SPASMS Last administered on 05/28/20at 09:26; Start 04/28/20 at 21:00 Insulin Glargine (Lantus Syringe) 85 unit BID SQ Last administered on 04/30/20at 20:39; Start 04/29/20 at 21:00; Stop 05/01/20 at 08:38; Status DC Insulin Human Lispro (HumaLOG) 30 units TIDWMEALS SQ Last administered on 05/03/20at 13:34; Start 04/29/20 at 12:00; Stop 05/03/20 at 19:55; Status DC Potassium Chloride (Klor-Con) 40 meq 1X ONCE PO Last administered on 04/29/20at 12:34; Start 04/29/20 at 12:30; Stop 04/29/20 at 12:31; Status DC Potassium Chloride (Klor-Con) 20 meq DAILYWBKFT PO Last administered on 04/30/20at 08:10; Start 04/30/20 at 08:00; Stop 04/30/20 at 08:57; Status DC Sevelamer Carbonate (Renvela) 800 mg TIDWMEALS PO Last administered on 05/02/20at 12:03; Start 04/29/20 at 17:00; Stop 05/02/20 at 12:44; Status DC Vitamin B Complex/ Vitamin C (Kelly-Jalen) 1 tab DAILY PO Last administered on 05/30/20at 07:55; Start 04/29/20 at 14:00 Remdesivir 100 mg/ Sodium Chloride 230 ml @ 460 mls/hr Q24H IV Last administered on 05/02/20at 14:27; Start 04/29/20 at 14:00; Stop 05/02/20 at 14:29; Status DC Lactobacillus Rhamnosus (Culturelle) 1 cap BID PO Last administered on 05/30/20at 07:56; Start 04/29/20 at 21:00 Potassium Chloride (Klor-Con) 20 meq 1X ONCE PO Last administered on 04/30/20at 14:40; Start 04/30/20 at 12:45; Stop 04/30/20 at 12:47; Status DC Sterile Water (WATER for RESP) 1,000 ml CONT PRN INH VIA VAPOTHERM DEVICE Last administered on 05/18/20at 23:51; Start 04/30/20 at 20:30 Insulin Glargine (Lantus Syringe) 75 unit BID SQ Last administered on 0at 20:52; Start 05/01/20 at 09:00; Stop 05/02/20 at 08:21; Status DC Carvedilol (Coreg) 25 mg BIDWMEALS PO Last administered on 05/30/20at 07:57; Start 05/01/20 at 17:00 Docusate Sodium (Colace) 100 mg PRN BID PRN PO HARD STOOLS; Start 05/01/20 at 12:45; Stop 05/01/20 at 12:45; Status DC Docusate Sodium (Colace) 100 mg BID PO Last administered on 05/13/20at 09:01; Start 05/01/20 at 12:45; Stop 05/13/20 at 18:00; Status DC Potassium Chloride/Water 100 ml @ 100 mls/hr Q1H IV Last administered on at 19:55; Start 05/01/20 at 15:00; Stop 05/01/20 at 18:59; Status DC Potassium Chloride (Klor-Con) 20 meq DAILYWBKFT PO Last administered on 05/28/20at 08:00; Start 05/02/20 at 08:00; Stop 05/29/20 at 08:40; Status DC Insulin Glargine (Lantus Syringe) 80 unit BID SQ Last administered on 05/03/20at 09:14; Start 05/02/20 at 09:00; Stop 05/03/20 at 19:55; Status DC Pantoprazole Sodium (PROTONIX VIAL for IV PUSH) 40 mg DAILY IVP Last administered on 05/07/20at 08:22; Start 05/02/20 at 09:00; Stop 05/07/20 at 15:25; Status DC Sevelamer Carbonate (Renvela) 1,600 mg TIDWMEALS PO Last administered on 05/30/20at 11:34; Start 05/02/20 at 17:00 Dexamethasone (Decadron) 4 mg DAILYWBKFT PO Last administered on 05/06/20at 08:15; Start 05/04/20 at 08:00; Stop 05/06/20 at 08:33; Status DC Lactulose (Lactulose) 20 gm 1X ONCE PO Last administered on 05/03/20at 15:32; Start 05/03/20 at 13:45; Stop 05/03/20 at 13:46; Status DC Lactulose (Lactulose) 20 gm PRN 1X PRN PO CONSTIPATION Last administered on 05/12/20at 15:41; Start 05/03/20 at 13:45; Stop 05/13/20 at 16:48; Status DC Insulin Glargine (Lantus Syringe) 60 unit BID SQ Last administered on 05/04/20at 22:04; Start 05/04/20 at 09:00; Stop 05/05/20 at 01:34; Status DC Insulin Human Lispro (HumaLOG) 15 units TIDAC SQ Last administered on 05/04/20at 07:49; Start 05/04/20 at 07:30; Stop 05/04/20 at 12:45; Status DC Insulin Glargine (Lantus Syringe) 60 unit 1X ONCE SQ Last administered on 05/04/20at 01:19; Start 05/04/20 at 01:15; Stop 05/04/20 at 01:16; Status DC Amino Acids/ Glycerin/ Electrolytes 1,000 ml @ 80 mls/hr [id number] IV Last administered on 05/07/20at 05:27; Start 05/04/20 at 10:15; Stop 05/07/20 at 12:31; Status DC Insulin Human Lispro (HumaLOG) 20 units 1X ONCE SQ Last administered on 05/04/20at 22:51; Start 05/04/20 at 22:45; Stop 05/04/20 at 22:46; Status DC Insulin Human Lispro (HumaLOG) 30 units 1X ONCE SQ Last administered on 05/05/20at 02:04; Start 05/05/20 at 01:45; Stop 05/05/20 at 01:47; Status DC Insulin Glargine (Lantus Syringe) 20 unit 1X ONCE SQ Last administered on 05/05/20at 02:04; Start 05/05/20 at 02:00; Stop 05/05/20 at 02:01; Status DC Insulin Glargine (Lantus Syringe) 80 unit BID SQ Last administered on 05/07/20at 08:25; Start 05/05/20 at 09:00; Stop 05/08/20 at 08:27; Status DC Insulin Human Lispro (HumaLOG) 20 units 1X ONCE SQ Last administered on 05/06/20at 03:37; Start 05/06/20 at 03:00; Stop 05/06/20 at 03:01; Status DC Insulin Human Lispro (HumaLOG) 20 units PRN BFRMEALHC PRN SQ Blood glucose > 200 mg/dL Last administered on 05/13/20at 09:05; Start 05/06/20 at 03:00; Stop 05/28/20 at 08:38; Status DC Pantoprazole Sodium (Protonix) 40 mg DAILYAC PO Last administered on 05/30/20at 07:56; Start 05/08/20 at 07:30 Insulin Glargine (Lantus Syringe) 80 unit DAILY SQ ; Start 05/08/20 at 09:00; Stop 05/09/20 at 09:06; Status DC Nystatin (Nystop) 1 ajckie BID TP Last administered on 05/30/20at 08:01; Start 05/08/20 at 10:00 Nystatin (Nystop) 1 jackie BID TP ; Start 05/08/20 at 21:00; Status UNV Insulin Glargine (Lantus Syringe) 60 unit DAILY SQ Last administered on 05/12/20at 09:08; Start 05/10/20 at 09:00; Stop 05/13/20 at 08:25; Status DC Simethicone (Gas-X) 80 mg PRN AFTMEALHC PRN PO GAS / BLOATING, 1ST CHOICE Last administered on 05/27/20at 22:35; Start 05/10/20 at 15:30 Magnesium Sulfate 50 ml @ 25 mls/hr PRN DAILY PRN IV for Mag < 1.7 on am labs; Start 05/11/20 at 14:15 Insulin Glargine (Lantus Syringe) 70 unit DAILY SQ Last administered on 05/16/20at 08:26; Start 05/13/20 at 08:30; Stop 05/16/20 at 08:37; Status DC Polyethylene Glycol (miraLAX PACKET) 34 gm PRN BID PRN PO CONSTIPATION Last administered on 05/26/20at 08:25; Start 05/13/20 at 18:00 Temazepam (Restoril) 15 mg PRN QHS PRN PO INSOMNIA Last administered on 05/29/20at 23:03; Start 05/13/20 at 18:00 Insulin Glargine (Lantus Syringe) 75 unit DAILY SQ Last administered on 05/18/20at 08:39; Start 05/17/20 at 09:00; Stop 05/23/20 at 09:03; Status DC Loperamide HCl (Imodium) 4 mg PRN TID PRN PO DIARRHEA Last administered on 05/22/20at 07:58; Start 05/17/20 at 22:30 Sodium Chloride 1,000 ml @ 75 mls/hr [id number] ONCE IV Last administered on 05/18/20at 11:22; Start 05/18/20 at 11:15; Stop 05/19/20 at 00:34; Status DC Heparin Sodium (Porcine) (Heparin Sodium) 5,000 unit Q12HR SQ Last administered on 05/30/20at 08:11; Start 05/19/20 at 09:00 Dicyclomine HCl (Bentyl) 10 mg PRN TID PRN PO GAS / BLOATING Last administered on 05/26/20at 08:26; Start 05/18/20 at 22:15 Lorazepam (Ativan) 1 mg PRN Q8HRS PRN PO ANXIETY / AGITATION Last administered on 05/28/20at 09:26; Start 05/18/20 at 22:15 Dexmedetomidine HCl 400 mcg/ Sodium Chloride 100 ml @ 6.99 mls/hr CONT PRN IV PER PROTOCOL Last administered on 05/21/20at 10:38; Start 05/19/20 at 09:45; Stop 05/21/20 at 16:18; Status DC Sodium Chloride 500 ml @ 500 mls/hr 1X PRN PRN IV SEE COMMENTS; Start 05/19/20 at 09:45; Stop 05/21/20 at 16:18; Status DC Atropine Sulfate (ATROPINE 0.5mg SYRINGE) 0.5 mg PRN Q5MIN PRN IV SEE COMMENTS; Start 05/19/20 at 09:45; Stop 05/21/20 at 16:18; Status DC Sodium Bicarbonate (Sodium Bicarb Adult 8.4% Syr) 50 meq 1X ONCE IV Last administered on 05/19/20at 16:51; Start 05/19/20 at 16:30; Stop 05/19/20 at 16:34; Status DC Lidocaine HCl (Buffered Lidocaine 1%) 3 ml STK-MED ONCE .ROUTE ; Start 05/20/20 at 10:52; Stop 05/20/20 at 10:52; Status DC Heparin Sodium (Porcine) (Heparin Sodium) 10,000 unit STK-MED ONCE .ROUTE ; Start 05/20/20 at 10:52; Stop 05/20/20 at 10:52; Status DC Lidocaine HCl (Buffered Lidocaine 1%) 6 ml 1X ONCE INJ Last administered on 05/20/20at 11:22; Start 05/20/20 at 11:00; Stop 05/20/20 at 11:01; Status DC Heparin Sodium (Porcine) (Heparin Sodium) 2,500 unit 1X ONCE INT CAT Last administered on 05/20/20at 11:26; Start 05/20/20 at 11:00; Stop 05/20/20 at 11:01; Status DC Sodium Chloride 1,000 ml @ 1,000 mls/hr Q1H PRN IV hypotension; Start 05/20/20 at 13:00; Stop 05/20/20 at 18:59; Status DC Albumin Human 200 ml @ 200 mls/hr 1X PRN PRN IV Hypotension Last administered on 05/20/20at 13:48; Start 05/20/20 at 13:00; Stop 05/20/20 at 18:59; Status DC Sodium Chloride 1,000 ml @ 400 mls/hr Q2H30M PRN IV PATENCY; Start 05/20/20 at 13:00; Stop 05/21/20 at 00:59; Status DC Info (PHARMACY MONITORING -- do not chart) 1 each PRN DAILY PRN MC SEE COMMENTS; Start 05/20/20 at 13:00; Status Cancel Sodium Chloride 1,000 ml @ 1,000 mls/hr Q1H PRN IV hypotension; Start 05/21/20 at 07:45; Stop 05/21/20 at 13:44; Status DC Albumin Human 200 ml @ 200 mls/hr 1X PRN PRN IV Hypotension; Start 05/21/20 at 07:45; Stop 05/21/20 at 13:44; Status DC Sodium Chloride 1,000 ml @ 400 mls/hr Q2H30M PRN IV PATENCY; Start 05/21/20 at 07:45; Stop 05/21/20 at 19:44; Status DC Info (PHARMACY MONITORING -- do not chart) 1 each PRN DAILY PRN MC SEE COMMENTS; Start 05/21/20 at 07:45; Status UNV Info (PHARMACY MONITORING -- do not chart) 1 each PRN DAILY PRN MC SEE COMMENTS; Start 05/21/20 at 07:45; Status Cancel Sodium Chloride 1,000 ml @ 1,000 mls/hr Q1H PRN IV hypotension; Start 05/22/20 at 08:00; Stop 05/22/20 at 13:59; Status DC Albumin Human 200 ml @ 200 mls/hr 1X PRN PRN IV Hypotension Last administered on 05/22/20at 09:13; Start 05/22/20 at 08:00; Stop 05/22/20 at 13:59; Status DC Sodium Chloride (Normal Saline Flush) 10 ml 1X PRN PRN IV AP catheter pack; Start 05/22/20 at 08:00; Stop 05/23/20 at 07:59; Status DC Sodium Chloride (Normal Saline Flush) 10 ml 1X PRN PRN IV STONE ROUGHER catheter pack; Start 05/22/20 at 08:00; Stop 05/23/20 at 07:59; Status DC Sodium Chloride 1,000 ml @ 400 mls/hr Q2H30M PRN IV PATENCY; Start 05/22/20 at 08:00; Stop 05/22/20 at 19:59; Status DC Info (PHARMACY MONITORING -- do not chart) 1 each PRN DAILY PRN MC SEE COMMENTS; Start 05/22/20 at 08:00; Status UNV Info (PHARMACY MONITORING -- do not chart) 1 each PRN DAILY PRN MC SEE COMMENTS; Start 05/22/20 at 08:00; Status Cancel Sodium Chloride 1,000 ml @ 1,000 mls/hr Q1H PRN IV hypotension; Start 05/23/20 at 07:45; Stop 05/23/20 at 13:44; Status DC Albumin Human 200 ml @ 200 mls/hr 1X PRN PRN IV Hypotension; Start 05/23/20 at 07:45; Stop 05/23/20 at 13:44; Status DC Sodium Chloride 1,000 ml @ 400 mls/hr Q2H30M PRN IV PATENCY; Start 05/23/20 at 07:45; Stop 05/23/20 at 19:44; Status DC Info (PHARMACY MONITORING -- do not chart) 1 each PRN DAILY PRN MC SEE COMMENTS; Start 05/23/20 at 07:45; Status UNV Info (PHARMACY MONITORING -- do not chart) 1 each PRN DAILY PRN MC SEE COMMENTS; Start 05/23/20 at 07:45; Status Cancel Insulin Glargine (Lantus Syringe) 50 unit DAILY SQ Last administered on 05/26/20at 09:08; Start 05/23/20 at 10:00; Stop 05/27/20 at 08:29; Status DC Amino Acids/ Glycerin/ Electrolytes 1,000 ml @ 80 mls/hr [id number] IV Last administered on 05/30/20at 01:25; Start 05/23/20 at 11:45; Stop 05/30/20 at 09: 21; Status DC Sodium Chloride 1,000 ml @ 1,000 mls/hr Q1H PRN IV hypotension; Start 05/24/20 at 08:00; Stop 05/24/20 at 13:59; Status DC Albumin Human 200 ml @ 200 mls/hr 1X PRN PRN IV Hypotension; Start 05/24/20 at 08:00; Stop 05/24/20 at 13:59; Status DC Sodium Chloride (Normal Saline Flush) 10 ml 1X PRN PRN IV AP catheter pack; Start 05/24/20 at 08:00; Stop 05/25/20 at 07:59; Status DC Sodium Chloride (Normal Saline Flush) 10 ml 1X PRN PRN IV STONE ROUGHER catheter pack; Start 05/24/20 at 08:00; Stop 05/25/20 at 07:59; Status DC Sodium Chloride 1,000 ml @ 400 mls/hr Q2H30M PRN IV PATENCY; Start 05/24/20 at 08:00; Stop 05/24/20 at 19:59; Status DC Info (PHARMACY MONITORING -- do not chart) 1 each PRN DAILY PRN MC SEE COMMENTS; Start 05/24/20 at 08:00; Status UNV Info (PHARMACY MONITORING -- do not chart) 1 each PRN DAILY PRN MC SEE COMMENTS; Start 05/24/20 at 08:00; Stop 05/28/20 at 10:33; Status DC Fluconazole (Diflucan) 200 mg DAILY08 PO Last administered on 05/30/20at 07:56; Start 05/26/20 at 12:00; Stop 06/01/20 at 08:01 Bisacodyl (Dulcolax Supp) 10 mg PRN DAILY PRN OR CONSTIPATION Last administered on 05/26/20at 17:55; Start 05/26/20 at 17:45 Insulin Glargine (Lantus Syringe) 60 unit DAILY SQ Last administered on 05/27/20at 09:36; Start 05/27/20 at 09:00; Stop 05/28/20 at 08:38; Status DC Sodium Chloride 1,000 ml @ 1,000 mls/hr Q1H PRN IV hypotension; Start 05/27/20 at 11:00; Stop 05/27/20 at 16:59; Status DC Albumin Human 200 ml @ 200 mls/hr 1X PRN PRN IV Hypotension; Start 05/27/20 at 11:00; Stop 05/27/20 at 16:59; Status DC Info (PHARMACY MONITORING -- do not chart) 1 each PRN DAILY PRN MC SEE COMMENTS; Start 05/27/20 at 11:00; Stop 05/29/20 at 16:27; Status DC Insulin Glargine (Lantus Syringe) 65 unit DAILY SQ Last administered on 1at 08:12; Start 05/28/20 at 09:00 Insulin Human Lispro (HumaLOG) 10 units PRN BFRMEALHC PRN SQ Blood glucose > 200 mg/dL Last administered on 05/29/20at 12:27; Start 05/28/20 at 08:45 Gabapentin (Neurontin) 400 mg QHS PO Last administered on 05/29/20at 20:13; Start 05/29/20 at 21:00 Darbepoetin Deepak (ARANESP for DIALYSIS PTS) 60 mcg [id number] SQ Last administered on 05/29/20at 20:14; Start 05/29/20 at 21:00 Sodium Chloride 1,000 ml @ 1,000 mls/hr Q1H PRN IV hypotension; Start 05/29/20 at 10:45; Stop 05/29/20 at 16:44; Status DC Albumin Human 200 ml @ 200 mls/hr 1X PRN PRN IV Hypotension; Start 05/29/20 at 10:45; Stop 05/29/20 at 16:44; Status DC Sodium Chloride 1,000 ml @ 400 mls/hr Q2H30M PRN IV PATENCY; Start 05/29/20 at 10:45; Stop 05/29/20 at 22:44; Status DC Info (PHARMACY MONITORING -- do not chart) 1 each PRN DAILY PRN MC SEE COMMENTS; Start 05/29/20 at 10:45; Stop 05/29/20 at 16:27; Status DC Info (PHARMACY MONITORING -- do not chart) 1 each PRN DAILY PRN MC SEE COMMENTS; Start 05/29/20 at 10:45 Diphenhydramine HCl (Benadryl) 25 mg PRN TID PRN PO ITCHING; Start 05/30/20 at 14:30 Active Scripts Active Reported Renagel (Sevelamer Hcl) 800 Mg Tablet 2 Tab PO TID 30 Days Kelly-[facility] Rx Tablet (Vit B Cmplx 3/Fa/Vit C/Biotin) 1 Each Tablet 1 Tab PO DAILY MDD 1 Aspirin 81 Mg Tab.chew 1 Tab PO DAILY Coreg (Carvedilol) 25 Mg Tablet 25 Mg PO BIDWMEALS Vitamin C (Ascorbic Acid) 500 Mg Capsule.er 1,000 Mg PO DAILY08 D3-50 (Cholecalciferol (Vitamin D3)) 50,000 Unit Capsule 10,000 Unit PO DAILY08 Metolazone 5 Mg Tablet 5 Mg PO DAILY Gabapentin 600 Mg Tablet 600 Mg PO HS Gabapentin (Gabapentin) 300 Mg Capsule 300 Mg PO DAILY Lantus Solostar (Insulin Glargine,Hum.rec.anlog) 100 Unit/1 Ml Insuln.pen 75 Unit SQ BID Januvia (Sitagliptin Phosphate) 25 Mg Tablet 25 Mg PO DAILY Novolog (Insulin Aspart) 100 Unit/1 Ml Cartridge 0 SQ TIDAC Sliding scale; patient has printout (at home) of scale. Unknown at this time. Singulair Tablet (Montelukast Sodium) 10 Mg Tablet 10 Mg PO HS Atorvastatin Calcium 40 Mg Tablet 1 Tab PO QHS Torsemide 20 Mg Tablet 2 Tab PO BID Cymbalta (Duloxetine Hcl) 30 Mg Capsule.dr 1 Cap PO BID Daily Jalen (Multivitamin) 1 Each Tablet 1 Each PO DAILY Vitals/I & O Vital Sign - Last 24 Hours 05/29/20 05/29/20 05/29/20 05/29/20 17:24 19:30 20:00 20:00 Temp 98.0 98.0 Pulse 81 98 Resp 18 B/P (MAP) 132/60 120/53 (75) Pulse Ox 88 O2 Delivery Nasal Cannula Venturi Mask O2 Flow Rate 11.0 10.0 5.0 05/29/20 05/30/20 05/30/20 05/30/20 23:01 02:23 07:00 07:17 Temp 98.2 96.9 98.0 98.2 96.9 98.0 Pulse 88 85 82 Resp 18 18 21 B/P (MAP) 150/67 (94) 151/67 (95) 135/56 (82) Pulse Ox 96 92 97 O2 Delivery Nasal Cannula Nasal Cannula Nasal Cannula O2 Flow Rate 11.0 11.0 11.0 11.0 05/30/20 05/30/20 05/30/20 05/30/20 07:39 07:57 08:00 10:55 Temp 97.7 97.7 Pulse 84 78 Resp 22 B/P (MAP) 135/56 147/57 (87) Pulse Ox 96 100 O2 Delivery Venturi Mask Venturi Mask Nasal Cannula O2 Flow Rate 10.0 5.0 11.0 05/30/20 15:01 Temp 98.0 98.0 Pulse 84 Resp 20 B/P (MAP) 151/77 (101) Pulse Ox 93 O2 Delivery Nasal Cannula O2 Flow Rate 11.0 Intake and Output 05/29/20 05/29/20 05/30/20 15:00 23:00 07:00 Intake Total 200 ml 1300 ml Output Total 350 ml 275 ml Balance -150 ml 1025 ml Justicifation of Admission Dx: Justifications for Admission: Justification of Admission Dx: N/A SHANA CHAUDHARI MD May 30, 2020 15:20
[2020-05-30] MEDS: diphenhydrAMINE HCL 25 MG CAPSULE PO PRN (18:02)
[2020-05-30 19:40] VITALS: BP 132/62
[2020-05-30] MEDS: GABAPENTIN 400 MG CAPSULE. PO SCH (20:53)
[2020-05-30 23:05] VITALS: BP 163/73
[2020-05-31] MEDS: DICYCLOMINE HCL 10 MG CAPSULE PO PRN (02:21)
[2020-05-31] MEDS: SIMETHICONE 80 MG TAB.CHEW PO PRN (02:21)
[2020-05-31 03:20] VITALS: BP 139/63
[2020-05-31 06:59] LABS: CALCIUM 9.4 mg/dL (8.5-10.1); CREATININE 3.3 mg/dL (0.6-1.0); GFR 14.5; POTASSIUM 4.9 mmol/L (3.5-5.1)
[2020-05-31 07:00] VITALS: BP 174/79
[2020-05-31] MEDS: SEVELAMER CARBONATE 800 MG TABLET. PO SCH ×3 (08:00→17:27)
--- NOTE | 2020-05-31 08:44 | PDOC ---
Provider Note Date of Service: DATE: 05/31/20 TIME: 08:43 Provider Note mentation better as Na+ higher, now 128 off ppn/torsemide- K+ better also- glucose godd, cont same , await placemnt Justifications for Admission Other Justification VERNA GARCIA MD May 31, 2020 08:44
[2020-05-31] MEDS: NYSTATIN TOPICAL POWDER 15GM BOTTLE. TP SCH ×2 (09:00→20:09)
--- NOTE | 2020-05-31 10:56 | PDOC ---
DATE OF SERVICE DATE: 05/31/20 TIME: 10:54 SUBJECTIVE ROS seen during dialysis treatment , No complaints OBJECTIVE Vital Signs Vital Signs Date Time Temp Pulse Resp B/P (MAP) Pulse Ox O2 Delivery O2 Flow Rate FiO2 05/31/20 08:00 Venturi Mask 10.0 05/31/20 07:00 96.8 90 22 174/79 (110) 97 96.8 I & 0 Intake and Output 05/31/20 07:00 Intake Total 2160 ml Output Total 1350 ml Balance 810 ml Intake Oral 1160 ml IV Total 1000 ml Output Urine Total 1350 ml # Bowel Movements 3 PHYSICAL EXAM Physical Exam General Appearance: NAD HEEN Venturi mask , hard of hearing neck supple Lungs : decreased breath sounds, non labored Heart: S1S2 Abdomen: soft, obese , PD cath in place Extremities: Edema mild Neurology: alert, oriented DIAGNOSIS/ASSESSMENT Assessment & Plan ESRD - switched from PD to HD , seen on dialysis, tolerating well, continue as ordered, Edward Rollins PD on hold ; Access- Temp HDC HypoNatremia- On Cymbalta and PPI . Recommend DC/or switch Cymbalta - defer to Primary Acute hypoxemic respiratory failure secondary to COVID-19 viral pneumonia./ ALI/ARDS- No recent CxR - last 05/20 reported stable infiltrates She has completed full course of steroids and remdesivir COVID-19 viral pneumonia, recovered CT angiogram, no evidence of pulmonary embolism. Morbid obesity. Obstructive sleep apnea. COMMENT/RELEVANT DATA Meds Current Medications Medications (Trade) Dose Ordered Sig/Mya Start Time Stop Time Status Last Admin Dose Admin Acetaminophen (Tylenol) 650 mg PRN Q4HRS PRN 04/27/20 23:15 05/26/20 08:26 650 MG Albumin Human 200 ml @ 200 mls/hr 1X PRN PRN 05/29/20 10:45 05/29/20 16:44 DC Amino Acids/ Glycerin/ Electrolytes 1,000 ml @ 80 mls/hr [id number] 05/23/20 11:45 05/30/20 09:21 DC 05/30/20 01:25 80 MLS/HR Ascorbic Acid (Vitamin C) 1,000 mg DAILY 04/28/20 13:00 04/30/20 08:57 DC 04/30/20 08:11 1,000 MG Atorvastatin Calcium (Lipitor) 40 mg QHS 04/27/20 21:00 04/30/20 08:57 DC 04/29/20 19:57 40 MG Atropine Sulfate (ATROPINE 0.5mg SYRINGE) 0.5 mg PRN Q5MIN PRN 05/19/20 09:45 05/21/20 16:18 DC Azithromycin 250 ml @ 250 mls/hr 1X ONCE 04/26/20 23:00 04/26/20 23:59 DC 04/26/20 23:18 250 MLS/HR Bisacodyl (Dulcolax Supp) 10 mg PRN DAILY PRN 05/26/20 17:45 05/26/20 17:55 10 MG Carvedilol (Coreg) 25 mg BIDWMEALS 05/01/20 17:00 05/30/20 16:56 25 MG Ceftriaxone Sodium (Rocephin) 1 gm Q24H 04/28/20 13:00 05/03/20 09:20 DC 05/02/20 12:20 1 GM Cyclobenzaprine HCl (Flexeril) 10 mg PRN QID PRN 04/28/20 21:00 05/28/20 09:26 10 MG Darbepoetin Deepak (ARANESP for DIALYSIS PTS) 60 mcg WEEKLYHS 05/29/20 21:00 05/29/20 20:14 60 MCG Dexamethasone (Decadron) 4 mg DAILYWBKFT 05/04/20 08:00 05/06/20 08:33 DC 05/06/20 08:15 4 MG Dexmedetomidine HCl 400 mcg/ Sodium Chloride 100 ml @ 6.99 mls/hr CONT PRN 05/19/20 09:45 05/21/20 16:18 DC 05/21/20 10:38 6.99 MLS/HR Dextrose (Dextrose 50%-Water Syringe) 12.5 gm PRN Q15MIN PRN 04/27/20 04:00 05/03/20 18:50 25 GM Dicyclomine HCl (Bentyl) 10 mg PRN TID PRN 05/18/20 22:15 05/31/20 02:21 10 MG Diphenhydramine HCl (Benadryl) 25 mg PRN TID PRN 05/30/20 14:30 05/30/20 18:02 25 MG Docusate Sodium (Colace) 100 mg BID 05/01/20 12:45 05/13/20 18:00 DC 05/13/20 09:01 100 MG Doxycycline Hyclate (Vibra-Tab) 100 mg BID 04/28/20 13:00 05/03/20 09:20 DC 05/03/20 08:36 100 MG Duloxetine HCl (Cymbalta) 30 mg DAILY08 05/31/20 09:00 Enoxaparin Sodium (Lovenox 30mg Syringe) 30 mg Q24H 04/28/20 13:00 04/28/20 12:38 DC Fluconazole (Diflucan) 200 mg DAILY08 05/26/20 12:00 06/01/20 08:01 05/30/20 07:56 200 MG Gabapentin (Neurontin) 400 mg QHS 05/29/20 21:00 05/30/20 20:53 400 MG Heparin Sodium (Porcine) (Heparin Sodium) 2,500 unit 1X ONCE 05/20/20 11:00 05/20/20 11:01 DC 05/20/20 11:26 2,500 UNIT Info (CONTRAST GIVEN -- Rx MONITORING) 1 each PRN DAILY PRN 04/26/20 20:45 04/28/20 20:44 DC Info (PHARMACY MONITORING -- do not chart) 1 each PRN DAILY PRN 05/29/20 10:45 Insulin Glargine (Lantus Syringe) 65 unit DAILY 05/28/20 09:00 05/30/20 08:12 65 UNIT Insulin Human Lispro (HumaLOG) 10 units PRN BFRMEALHC PRN 05/28/20 08:45 05/29/20 12:27 10 UNITS Iohexol (Omnipaque 350 Mg/ml) 100 ml 1X ONCE 04/26/20 20:45 04/26/20 20:46 DC 04/26/20 21:20 100 ML Lactobacillus Rhamnosus (Culturelle) 1 cap BID 04/29/20 21:00 05/30/20 20:53 1 CAP Lactulose (Lactulose) 20 gm PRN 1X PRN 05/03/20 13:45 05/13/20 16:48 DC 05/12/20 15:41 20 GM Lidocaine HCl (Buffered Lidocaine 1%) 6 ml 1X ONCE 05/20/20 11:00 05/20/20 11:01 DC 05/20/20 11:22 3 ML Linagliptin (Tradjenta) 5 mg DAILY 04/27/20 09:00 05/30/20 07:56 5 MG Loperamide HCl (Imodium) 4 mg PRN TID PRN 05/17/20 22:30 05/22/20 07:58 4 MG Lorazepam (Ativan) 1 mg PRN Q8HRS PRN 05/18/20 22:15 05/28/20 09:26 1 MG Magnesium Sulfate 50 ml @ 25 mls/hr PRN DAILY PRN 05/11/20 14:15 Montelukast Sodium (Singulair) 10 mg HS 04/27/20 21:00 04/30/20 08:57 DC 04/29/20 19:57 10 MG Multivitamins (Thera M Plus) 1 tab DAILY 04/27/20 09:00 05/30/20 07:56 1 TAB Non-Formulary Medication (Gabapentin ) 600 mg HS 04/27/20 21:00 UNV Nystatin (Nystop) 1 jackie BID 05/08/20 21:00 UNV Ondansetron HCl (Zofran Odt) 4 mg PRN Q6HRS PRN 04/28/20 12:15 05/25/20 16:31 4 MG Ondansetron HCl (Zofran) 4 mg PRN Q8HRS PRN 04/26/20 22:45 04/27/20 22:44 DC Pantoprazole Sodium (PROTONIX VIAL for IV PUSH) 40 mg DAILY 05/02/20 09:00 05/07/20 15:25 DC 05/07/20 08:22 40 MG Pantoprazole Sodium (Protonix) 40 mg DAILYAC 05/08/20 07:30 05/30/20 07:56 40 MG Polyethylene Glycol (miraLAX PACKET) 34 gm PRN BID PRN 05/13/20 18:00 05/26/20 08:25 34 GM Potassium Chloride/Water 100 ml @ 100 mls/hr Q1H 05/01/20 15:00 05/01/20 18:59 DC 05/01/20 19:55 100 MLS/HR Potassium Chloride (Klor-Con) 20 meq DAILYWBKFT 05/02/20 08:00 05/29/20 08:40 DC 05/28/20 08:00 20 MEQ Remdesivir 100 mg/ Sodium Chloride 230 ml @ 460 mls/hr Q24H 04/29/20 14:00 05/02/20 14:29 DC 05/02/20 14:27 460 MLS/HR Remdesivir 200 mg/ Sodium Chloride 210 ml @ 210 mls/hr 1X ONCE 04/28/20 14:00 04/28/20 14:59 DC 04/28/20 15:39 210 MLS/HR Sevelamer Carbonate (Renvela) 1,600 mg TIDWMEALS 05/02/20 17:00 05/30/20 16:55 1,600 MG Simethicone (Gas-X) 80 mg PRN AFTMEALHC PRN 05/10/20 15:30 05/31/20 02:21 80 MG Sodium Bicarbonate (Sodium Bicarb Adult 8.4% Syr) 50 meq 1X ONCE 05/19/20 16:30 05/19/20 16:34 DC 05/19/20 16:51 50 MEQ Sodium Chloride 1,000 ml @ 400 mls/hr Q2H30M PRN 05/29/20 10:45 05/29/20 22:44 DC Sodium Chloride (Normal Saline Flush) 10 ml 1X PRN PRN 05/24/20 08:00 05/25/20 07:59 DC Sterile Water (WATER for RESP) 1,000 ml CONT PRN 04/30/20 20:30 05/18/20 23:51 1,000 ML Temazepam (Restoril) 15 mg PRN QHS PRN 05/13/20 18:00 05/29/20 23:03 15 MG Torsemide (Demadex) 40 mg BID94 04/27/20 09:00 05/29/20 08:40 DC 05/28/20 09:26 40 MG Vitamin B Complex/ Vitamin C (Kelly-Jalen) 1 tab DAILY 04/29/20 14:00 05/30/20 07:55 1 TAB Vitamin D (Vitamin D3) 500 unit DAILY 04/28/20 13:00 04/30/20 08:57 DC 04/30/20 08:10 500 UNIT Zinc Sulfate (Orazinc) 220 mg DAILY 04/28/20 13:00 05/30/20 07:55 220 MG Lab Laboratory Tests Test 05/30/20 11:59 05/30/20 16:42 05/30/20 20:56 05/31/20 05:05 Glucose (Fingerstick) 198 mg/dL (70-99) 191 mg/dL (70-99) 165 mg/dL (70-99) Sodium Level 128 mmol/L (136-145) Potassium Level 4.9 mmol/L (3.5-5.1) Chloride Level 93 mmol/L (98-107) Carbon Dioxide Level 28 mmol/L (21-32) Anion Gap 7 (6-14) Blood Urea Nitrogen 47 mg/dL (7-20) Creatinine 3.3 mg/dL (0.6-1.0) Estimated GFR (Cockcroft-Gault) 14.5 Glucose Level 139 mg/dL (70-99) Calcium Level 9.4 mg/dL (8.5-10.1) Test 05/31/20 07:48 Glucose (Fingerstick) 174 mg/dL (70-99) Results All relevant outside records, renal labs, imaging studies, telemetry/EKG's were reviewed. Justicifation of Admission Dx: Justifications for Admission: Justification of Admission Dx: N/A FLORINA TRONCOSO MD May 31, 2020 10:56
[2020-05-31 11:20] VITALS: BP 150/114
--- NOTE | 2020-05-31 12:01 | PDOC ---
PULMONARY PROGRESS NOTES DATE: 05/31/20 TIME: 11:58 Subjective Pt. reports she feeling no increased SOB or cough Seen while on HD On 10 liters VM and additional N/C no overnight concerns Vitals Vital Signs Date Time Temp Pulse Resp B/P (MAP) Pulse Ox O2 Delivery O2 Flow Rate FiO2 05/31/20 08:00 Venturi Mask 10.0 05/31/20 07:00 96.8 90 22 174/79 (110) 97 96.8 ROS: No Nausea, No Chest Pain, No Abdominal Pain, No Increase Cough General: Alert, Oriented X4 Lungs: Clear Cardiovascular: S1, S2 Abdomen: Soft, Non-tender, Other (obese) Neuro Exam: Alert, Oriented Skin: Warm, Dry Labs Laboratory Tests Test 05/29/20 20:23 05/30/20 07:46 05/30/20 09:20 05/30/20 11:59 Glucose (Fingerstick) 259 mg/dL (70-99) 174 mg/dL (70-99) 198 mg/dL (70-99) Sodium Level 124 mmol/L (136-145) Potassium Level 5.1 mmol/L (3.5-5.1) Chloride Level 92 mmol/L (98-107) Carbon Dioxide Level 29 mmol/L (21-32) Anion Gap 3 (6-14) Blood Urea Nitrogen 42 mg/dL (7-20) Creatinine 2.9 mg/dL (0.6-1.0) Estimated GFR (Cockcroft-Gault) 16.8 Glucose Level 163 mg/dL (70-99) Calcium Level 9.1 mg/dL (8.5-10.1) Test 05/30/20 16:42 05/30/20 20:56 05/31/20 05:05 05/31/20 07:48 Glucose (Fingerstick) 191 mg/dL (70-99) 165 mg/dL (70-99) 174 mg/dL (70-99) Sodium Level 128 mmol/L (136-145) Potassium Level 4.9 mmol/L (3.5-5.1) Chloride Level 93 mmol/L (98-107) Carbon Dioxide Level 28 mmol/L (21-32) Anion Gap 7 (6-14) Blood Urea Nitrogen 47 mg/dL (7-20) Creatinine 3.3 mg/dL (0.6-1.0) Estimated GFR (Cockcroft-Gault) 14.5 Glucose Level 139 mg/dL (70-99) Calcium Level 9.4 mg/dL (8.5-10.1) Laboratory Tests Test 05/30/20 11:59 05/30/20 16:42 05/30/20 20:56 05/31/20 05:05 Glucose (Fingerstick) 198 mg/dL (70-99) 191 mg/dL (70-99) 165 mg/dL (70-99) Sodium Level 128 mmol/L (136-145) Potassium Level 4.9 mmol/L (3.5-5.1) Chloride Level 93 mmol/L (98-107) Carbon Dioxide Level 28 mmol/L (21-32) Anion Gap 7 (6-14) Blood Urea Nitrogen 47 mg/dL (7-20) Creatinine 3.3 mg/dL (0.6-1.0) Estimated GFR (Cockcroft-Gault) 14.5 Glucose Level 139 mg/dL (70-99) Calcium Level 9.4 mg/dL (8.5-10.1) Test 05/31/20 07:48 Glucose (Fingerstick) 174 mg/dL (70-99) Medications Active Scripts Medications Dose Route/Sig Max Daily Dose Days Date Category Dose Instructions Gabapentin 600 Mg Tablet 600 Mg PO HS 04/27/20 Reported Gabapentin (Gabapentin) 300 Mg Capsule 300 Mg PO DAILY 04/27/20 Reported Lantus Solostar (Insulin Glargine,Hum.rec.anlog) 100 Unit/1 Ml Insuln.pen 75 Unit SQ BID 09/19/19 Reported Januvia (Sitagliptin Phosphate) 25 Mg Tablet 25 Mg PO DAILY 09/19/19 Reported Novolog (Insulin Aspart) 100 Unit/1 Ml Cartridge 0 SQ TIDAC 01/26/19 Reported Sliding scale; patient has printout (at home) of scale. Unknown at this time. Singulair Tablet (Montelukast Sodium) 10 Mg Tablet 10 Mg PO HS 11/24/18 Reported Atorvastatin Calcium 40 Mg Tablet 1 Tab PO QHS 11/24/18 Reported Torsemide 20 Mg Tablet 2 Tab PO BID 11/24/18 Reported Cymbalta (Duloxetine Hcl) 30 Mg Capsule. 1 Cap PO BID 11/24/18 Reported Daily Jalen (Multivitamin) 1 Each Tablet 1 Each PO DAILY 11/24/18 Reported Comments CXR 05/20 IMPRESSION: Slightly improved diffuse bilateral opacities. CTA chest IMPRESSION: 1. No evidence of pulmonary thromboembolic disease. 2. Multifocal bilateral groundglass opacities and consolidations, consistent with patient's history of infection. 3. Dilated pulmonary trunk, which can be seen with pulmonary hypertension. Impression . IMPRESSION: 1. Acute hypoxemic respiratory failure secondary to COVID-19 viral pneumonia./ ALI/ARDS--ongoing need for high levels of oxygen 2. COVID-[address] angiogram, no evidence of pulmonary embolism. 4. Chronic kidney disease, previously peritoneal dialysis, now HD 5. Morbid obesity. 6. Obstructive sleep apnea. 7. Hyperlipidemia. 8. Hypertension. Plan . PLAN: Continue supplemental oxygen to keep oxygen saturations 90%, on 10 liters VM and additonal N/C, wean oxygen as tolerated Pt. has completed full course of steroids monitor off ABX Pt. has completed Full course of remdesivir Follow nephrology recommendations----- HD, Physical therapy/Occupational Therapy DVT/GI prophylaxis Discussed with RN patient is a DNR/DNI Social work for D/C planning -- has been declined at RAFAL TOMPKINS MD May 31, 2020 12:00
[2020-05-31] MEDS ORDERED: DIALYSIS PATIENT. MC PRN (12:30)
[2020-05-31] MEDS: FLUCONAZOLE 100 MG TABLET. PO SCH (12:35)
[2020-05-31] MEDS: PANTOPRAZOLE 40 MG TABLET.DR. PO SCH (12:36)
[2020-05-31] MEDS: LINAGLIPTIN 5 MG TABLET PO SCH (12:36)
[2020-05-31] MEDS: FOLIC/VIT B COMP W-C (RENAL) TABLET. PO SCH (12:36)
[2020-05-31] MEDS: LACTOBACILLUS RHAMNOSUS GG 1 CAPSULE. PO SCH ×2 (12:36→20:09)
[2020-05-31] MEDS: MULTIVITAMIN with MINERAL TABLET. PO SCH (12:36)
[2020-05-31] MEDS: ZINC SULFATE 220 MG CAPSULE. PO SCH (12:36)
[2020-05-31] MEDS: CARVEDILOL 12.5 MG TABLET. PO SCH ×2 (12:36→17:27)
[2020-05-31] MEDS: DULoxetine HCL 30 MG CAPSULE.DR PO SCH (12:36)
[2020-05-31] MEDS: HEPARIN for SUB-Q USE 5,000 UNIT/ML VIAL. SQ SCH ×2 (12:40→20:10)
[2020-05-31] MEDS: INSULIN GLARGINE SYRINGE. SQ SCH (12:41)
[2020-05-31 15:00] VITALS: BP 118/58
--- NOTE | 2020-05-31 15:12 | NUR ---
SS following up with discharge planning. SS reviewed pt chart and discussed with pt RN. Pt's RN attempting to titrate pt's oxygen. Pt is currently on oxygen at seven liters nasal canula. Pt's RN monitoring oxygen sats. COVID19 recovered. Pt clinically accepted at [facility], ; fax [phone]. [facility] declining authorization for LTACH. Peer to peer done and denied by insurance. Written appeal in process. SS notified that if pt's oxygen remains stable over the weekend on nasal canula then skilled rehabilitation can be discussed with pt and family. SS will continue to follow for discharge planning.
[2020-05-31 19:30] VITALS: BP 107/44
[2020-05-31] MEDS: diphenhydrAMINE HCL 25 MG CAPSULE PO PRN (20:09)
[2020-05-31] MEDS: GABAPENTIN 400 MG CAPSULE. PO SCH (20:09)
[2020-05-31] MEDS: CYCLOBENZAPRINE 10 MG TABLET. PO PRN (20:09)
[2020-05-31 23:25] VITALS: BP 108/44
[2020-06-01 03:51] VITALS: BP 135/60
--- NOTE | 2020-06-01 06:37 | PDOC ---
PULMONARY PROGRESS NOTES DATE: 06/01/20 TIME: 06:36 Subjective o 02 7 lpm confused at times appears comfortable. Vitals Vital Signs Date Time Temp Pulse Resp B/P (MAP) Pulse Ox O2 Delivery O2 Flow Rate FiO2 06/01/20 03:51 97.8 83 135/60 (85) 90 Nasal Cannula 7.0 97.8 05/31/20 23:25 18 ROS: No Nausea, No Chest Pain, No Abdominal Pain, No Increase Cough General: Alert, Oriented X4 Lungs: Clear Cardiovascular: S1, S2 Abdomen: Soft, Non-tender, Other (obese) Neuro Exam: Alert, Oriented Skin: Warm, Dry Labs Laboratory Tests Test 05/30/20 07:46 05/30/20 09:20 05/30/20 11:59 05/30/20 16:42 Glucose (Fingerstick) 174 mg/dL (70-99) 198 mg/dL (70-99) 191 mg/dL (70-99) Sodium Level 124 mmol/L (136-145) Potassium Level 5.1 mmol/L (3.5-5.1) Chloride Level 92 mmol/L (98-107) Carbon Dioxide Level 29 mmol/L (21-32) Anion Gap 3 (6-14) Blood Urea Nitrogen 42 mg/dL (7-20) Creatinine 2.9 mg/dL (0.6-1.0) Estimated GFR (Cockcroft-Gault) 16.8 Glucose Level 163 mg/dL (70-99) Calcium Level 9.1 mg/dL (8.5-10.1) Test 05/30/20 20:56 05/31/20 05:05 05/31/20 07:48 05/31/20 12:06 Glucose (Fingerstick) 165 mg/dL (70-99) 174 mg/dL (70-99) 134 mg/dL (70-99) Sodium Level 128 mmol/L (136-145) Potassium Level 4.9 mmol/L (3.5-5.1) Chloride Level 93 mmol/L (98-107) Carbon Dioxide Level 28 mmol/L (21-32) Anion Gap 7 (6-14) Blood Urea Nitrogen 47 mg/dL (7-20) Creatinine 3.3 mg/dL (0.6-1.0) Estimated GFR (Cockcroft-Gault) 14.5 Glucose Level 139 mg/dL (70-99) Calcium Level 9.4 mg/dL (8.5-10.1) Test 05/31/20 17:22 05/31/20 21:01 Glucose (Fingerstick) 179 mg/dL (70-99) 163 mg/dL (70-99) Laboratory Tests Test 05/31/20 07:48 05/31/20 12:06 05/31/20 17:22 05/31/20 21:01 Glucose (Fingerstick) 174 mg/dL (70-99) 134 mg/dL (70-99) 179 mg/dL (70-99) 163 mg/dL (70-99) Medications Active Scripts Medications Dose Route/Sig Max Daily Dose Days Date Category Dose Instructions Gabapentin 600 Mg Tablet 600 Mg PO HS 04/27/20 Reported Gabapentin (Gabapentin) 300 Mg Capsule 300 Mg PO DAILY 04/27/20 Reported Lantus Solostar (Insulin Glargine,Hum.rec.anlog) 100 Unit/1 Ml Insuln.pen 75 Unit SQ BID 09/19/19 Reported Januvia (Sitagliptin Phosphate) 25 Mg Tablet 25 Mg PO DAILY 09/19/19 Reported Novolog (Insulin Aspart) 100 Unit/1 Ml Cartridge 0 SQ TIDAC 01/26/19 Reported Sliding scale; patient has printout (at home) of scale. Unknown at this time. Singulair Tablet (Montelukast Sodium) 10 Mg Tablet 10 Mg PO HS 11/24/18 Reported Atorvastatin Calcium 40 Mg Tablet 1 Tab PO QHS 11/24/18 Reported Torsemide 20 Mg Tablet 2 Tab PO BID 11/24/18 Reported Cymbalta (Duloxetine Hcl) 30 Mg Capsule.dr 1 Cap PO BID 11/24/18 Reported Daily Jalen (Multivitamin) 1 Each Tablet 1 Each PO DAILY 11/24/18 Reported Comments CXR 05/20 IMPRESSION: Slightly improved diffuse bilateral opacities. CTA chest IMPRESSION: 1. No evidence of pulmonary thromboembolic disease. 2. Multifocal bilateral groundglass opacities and consolidations, consistent with patient's history of infection. 3. Dilated pulmonary trunk, which can be seen with pulmonary hypertension. Impression . IMPRESSION: 1. Acute hypoxemic respiratory failure secondary to COVID-19 viral pneumonia./ ALI/ARDS--ongoing need for high levels of oxygen 2. COVID-[address] angiogram, no evidence of pulmonary embolism. 4. Chronic kidney disease, previously peritoneal dialysis, now HD 5. Morbid obesity. 6. Obstructive sleep apnea. 7. Hyperlipidemia. 8. Hypertension. Plan . PLAN: Continue supplemental oxygen to keep oxygen saturations 90%, wean oxygen as tolerated bipap prn Pt. has completed full course of steroids monitor off ABX Pt. has completed Full course of remdesivir Follow nephrology recommendations----- HD, Physical therapy/Occupational Therapy DVT/GI prophylaxis Discussed with RN patient is a DNR/DNI Social work for D/C planning -- has been declined at ROBIN MIKE MD Jun 01, 2020 06:37
[2020-06-01 07:00] VITALS: BP 142/69
[2020-06-01] MEDS: LINAGLIPTIN 5 MG TABLET PO SCH (08:54)
[2020-06-01] MEDS: CARVEDILOL 12.5 MG TABLET. PO SCH ×2 (08:54→16:25)
[2020-06-01] MEDS: FLUCONAZOLE 100 MG TABLET. PO SCH (08:54)
[2020-06-01] MEDS: FOLIC/VIT B COMP W-C (RENAL) TABLET. PO SCH (08:54)
[2020-06-01] MEDS: LACTOBACILLUS RHAMNOSUS GG 1 CAPSULE. PO SCH ×2 (08:55→20:30)
[2020-06-01] MEDS: MULTIVITAMIN with MINERAL TABLET. PO SCH (08:55)
[2020-06-01] MEDS: SEVELAMER CARBONATE 800 MG TABLET. PO SCH ×3 (08:55→16:24)
[2020-06-01] MEDS: ZINC SULFATE 220 MG CAPSULE. PO SCH (08:55)
[2020-06-01] MEDS: SIMETHICONE 80 MG TAB.CHEW PO PRN (08:55)
[2020-06-01] MEDS: PANTOPRAZOLE 40 MG TABLET.DR. PO SCH (08:55)
[2020-06-01] MEDS: DULoxetine HCL 30 MG CAPSULE.DR PO SCH (08:55)
[2020-06-01] MEDS: NYSTATIN TOPICAL POWDER 15GM BOTTLE. TP SCH ×2 (09:06→20:31)
[2020-06-01] MEDS: INSULIN GLARGINE SYRINGE. SQ SCH (09:11)
[2020-06-01] MEDS: HEPARIN for SUB-Q USE 5,000 UNIT/ML VIAL. SQ SCH ×2 (09:12→20:30)
--- NOTE | 2020-06-01 10:28 | PDOC ---
Provider Note Date of Service: DATE: 06/01/20 TIME: 10:27 Provider Note status same, glucose good , will repeat Na+ 06/02 to follow- rest same Justifications for Admission Other Justification VERNA GARCIA MD Jun 01, 2020 10:27
[2020-06-01 11:00] VITALS: BP 110/64
--- NOTE | 2020-06-01 14:02 | PDOC ---
DATE OF SERVICE: DOS: DATE: 06/01/20 TIME: 14:01 SUBJECTIVE ROS Follow-up for ESRD No reported complaints OBJECTIVE Vital Signs Vital Signs Date Time Temp Pulse Resp B/P (MAP) Pulse Ox O2 Delivery O2 Flow Rate FiO2 06/01/20 11:00 98.4 74 16 110/64 (79) 90 Room Air 98.4 06/01/20 08:00 7.0 I & 0 Intake and Output 06/01/20 07:00 Intake Total 1380 ml Output Total 325 ml Balance 1055 ml Intake Oral 1380 ml Output Urine Total 325 ml PHYSICAL EXAM Physical Exam Physical exam limited due to COVID-19 isolation precautions. Physical exam reviewed as documented by other providers. Care was discussed with the nurse DIAGNOSIS/ASSESSMENT Assessment & Plan ESRD: No labs today. No emergent indication for dialysis currently. Next dialysis Wednesday schedule COMMENT/RELEVANT DATA Meds Current Medications Medications (Trade) Dose Ordered Sig/Mya Start Time Stop Time Status Last Admin Dose Admin Acetaminophen (Tylenol) 650 mg PRN Q4HRS PRN 04/27/20 23:15 05/26/20 08:26 650 MG Albumin Human 200 ml @ 200 mls/hr 1X PRN PRN 05/29/20 10:45 05/29/20 16:44 DC Amino Acids/ Glycerin/ Electrolytes 1,000 ml @ 80 mls/hr [id number] 05/23/20 11:45 05/30/20 09:21 DC 05/30/20 01:25 80 MLS/HR Ascorbic Acid (Vitamin C) 1,000 mg DAILY 04/28/20 13:00 04/30/20 08:57 DC 04/30/20 08:11 1,000 MG Atorvastatin Calcium (Lipitor) 40 mg QHS 04/27/20 21:00 04/30/20 08:57 DC 04/29/20 19:57 40 MG Atropine Sulfate (ATROPINE 0.5mg SYRINGE) 0.5 mg PRN Q5MIN PRN 05/19/20 09:45 05/21/20 16:18 DC Azithromycin 250 ml @ 250 mls/hr 1X ONCE 04/26/20 23:00 04/26/20 23:59 DC 04/26/20 23:18 250 MLS/HR Bisacodyl (Dulcolax Supp) 10 mg PRN DAILY PRN 05/26/20 17:45 05/26/20 17:55 10 MG Carvedilol (Coreg) 25 mg BIDWMEALS 05/01/20 17:00 06/01/20 08:54 25 MG Ceftriaxone Sodium (Rocephin) 1 gm Q24H 04/28/20 13:00 05/03/20 09:20 DC 05/02/20 12:20 1 GM Cyclobenzaprine HCl (Flexeril) 10 mg PRN QID PRN 04/28/20 21:00 05/31/20 20:09 10 MG Darbepoetin Deepak (ARANESP for DIALYSIS PTS) 60 mcg WEEKLYHS 05/29/20 21:00 05/29/20 20:14 60 MCG Dexamethasone (Decadron) 4 mg DAILYWBKFT 05/04/20 08:00 05/06/20 08:33 DC 05/06/20 08:15 4 MG Dexmedetomidine HCl 400 mcg/ Sodium Chloride 100 ml @ 6.99 mls/hr CONT PRN 05/19/20 09:45 05/21/20 16:18 DC 05/21/20 10:38 6.99 MLS/HR Dextrose (Dextrose 50%-Water Syringe) 12.5 gm PRN Q15MIN PRN 04/27/20 04:00 05/03/20 18:50 25 GM Dicyclomine HCl (Bentyl) 10 mg PRN TID PRN 05/18/20 22:15 05/31/20 02:21 10 MG Diphenhydramine HCl (Benadryl) 25 mg PRN TID PRN 05/30/20 14:30 05/31/20 20:09 25 MG Docusate Sodium (Colace) 100 mg BID 05/01/20 12:45 05/13/20 18:00 DC 05/13/20 09:01 100 MG Doxycycline Hyclate (Vibra-Tab) 100 mg BID 04/28/20 13:00 05/03/20 09:20 DC 05/03/20 08:36 100 MG Duloxetine HCl (Cymbalta) 30 mg DAILY08 05/31/20 09:00 06/01/20 08:55 30 MG Enoxaparin Sodium (Lovenox 30mg Syringe) 30 mg Q24H 04/28/20 13:00 04/28/20 12:38 DC Fluconazole (Diflucan) 200 mg DAILY08 05/26/20 12:00 06/01/20 08:01 DC 06/01/20 08:54 200 MG Gabapentin (Neurontin) 400 mg QHS 05/29/20 21:00 05/31/20 20:09 400 MG Heparin Sodium (Porcine) (Heparin Sodium) 2,500 unit 1X ONCE 05/20/20 11:00 05/20/20 11:01 DC 05/20/20 11:26 2,500 UNIT Info (CONTRAST GIVEN -- Rx MONITORING) 1 each PRN DAILY PRN 04/26/20 20:45 04/28/20 20:44 DC Info (PHARMACY MONITORING -- do not chart) 1 each PRN DAILY PRN 05/31/20 12:30 Insulin Glargine (Lantus Syringe) 65 unit DAILY 05/28/20 09:00 06/01/20 09:11 65 UNIT Insulin Human Lispro (HumaLOG) 10 units PRN BFRMEALHC PRN 05/28/20 08:45 05/29/20 12:27 10 UNITS Iohexol (Omnipaque 350 Mg/ml) 100 ml 1X ONCE 04/26/20 20:45 04/26/20 20:46 DC 04/26/20 21:20 100 ML Lactobacillus Rhamnosus (Culturelle) 1 cap BID 04/29/20 21:00 06/01/20 08:55 1 CAP Lactulose (Lactulose) 20 gm PRN 1X PRN 05/03/20 13:45 05/13/20 16:48 DC 05/12/20 15:41 20 GM Lidocaine HCl (Buffered Lidocaine 1%) 6 ml 1X ONCE 05/20/20 11:00 05/20/20 11:01 DC 05/20/20 11:22 3 ML Linagliptin (Tradjenta) 5 mg DAILY 04/27/20 09:00 06/01/20 08:54 5 MG Loperamide HCl (Imodium) 4 mg PRN TID PRN 05/17/20 22:30 05/22/20 07:58 4 MG Lorazepam (Ativan) 1 mg PRN Q8HRS PRN 05/18/20 22:15 05/28/20 09:26 1 MG Magnesium Sulfate 50 ml @ 25 mls/hr PRN DAILY PRN 05/11/20 14:15 Montelukast Sodium (Singulair) 10 mg HS 04/27/20 21:00 04/30/20 08:57 DC 04/29/20 19:57 10 MG Multivitamins (Thera M Plus) 1 tab DAILY 04/27/20 09:00 06/01/20 08:55 1 TAB Non-Formulary Medication (Gabapentin ) 600 mg HS 04/27/20 21:00 UNV Nystatin (Nystop) 1 jackie BID 05/08/20 21:00 UNV Ondansetron HCl (Zofran Odt) 4 mg PRN Q6HRS PRN 04/28/20 12:15 05/25/20 16:31 4 MG Ondansetron HCl (Zofran) 4 mg PRN Q8HRS PRN 04/26/20 22:45 04/27/20 22:44 DC Pantoprazole Sodium (PROTONIX VIAL for IV PUSH) 40 mg DAILY 05/02/20 09:00 05/07/20 15:25 DC 05/07/20 08:22 40 MG Pantoprazole Sodium (Protonix) 40 mg DAILYAC 05/08/20 07:30 06/01/20 08:55 40 MG Polyethylene Glycol (miraLAX PACKET) 34 gm PRN BID PRN 05/13/20 18:00 05/26/20 08:25 34 GM Potassium Chloride/Water 100 ml @ 100 mls/hr Q1H 05/01/20 15:00 05/01/20 18:59 DC 05/01/20 19:55 100 MLS/HR Potassium Chloride (Klor-Con) 20 meq [id number] 05/02/20 08:00 05/29/20 08:40 DC 05/28/20 08:00 20 MEQ Remdesivir 100 mg/ Sodium Chloride 230 ml @ 460 mls/hr Q24H 04/29/20 14:00 05/02/20 14:29 DC 05/02/20 14:27 460 MLS/HR Remdesivir 200 mg/ Sodium Chloride 210 ml @ 210 mls/hr 1X ONCE 04/28/20 14:00 04/28/20 14:59 DC 04/28/20 15:39 210 MLS/HR Sevelamer Carbonate (Renvela) 1,600 mg TIDWMEALS 05/02/20 17:00 06/01/20 11:57 1,600 MG Simethicone (Gas-X) 80 mg PRN AFTMEALHC PRN 05/10/20 15:30 06/01/20 08:55 80 MG Sodium Bicarbonate (Sodium Bicarb Adult 8.4% Syr) 50 meq 1X ONCE 05/19/20 16:30 05/19/20 16:34 DC 05/19/20 16:51 50 MEQ Sodium Chloride 1,000 ml @ 400 mls/hr Q2H30M PRN 05/29/20 10:45 05/29/20 22:44 DC Sodium Chloride (Normal Saline Flush) 10 ml 1X PRN PRN 05/24/20 08:00 05/25/20 07:59 DC Sterile Water (WATER for RESP) 1,000 ml CONT PRN 04/30/20 20:30 05/18/20 23:51 1,000 ML Temazepam (Restoril) 15 mg PRN QHS PRN 05/13/20 18:00 05/29/20 23:03 15 MG Torsemide (Demadex) 40 mg [id number] 04/27/20 09:00 05/29/20 08:40 DC 05/28/20 09:26 40 MG Vitamin B Complex/ Vitamin C (Kelly-Jalen) 1 tab DAILY 04/29/20 14:00 06/01/20 08:54 1 TAB Vitamin D (Vitamin D3) 500 unit DAILY 04/28/20 13:00 04/30/20 08:57 DC 04/30/20 08:10 500 UNIT Zinc Sulfate (Orazinc) 220 mg DAILY 04/28/20 13:00 06/01/20 08:55 220 MG Lab Laboratory Tests Test 05/31/20 17:22 05/31/20 21:01 06/01/20 07:08 Glucose (Fingerstick) 179 mg/dL (70-99) 163 mg/dL (70-99) 134 mg/dL (70-99) Results All relevant outside records, renal labs, imaging studies, telemetry/EKG's were reviewed. Justicifation of Admission Dx: Justifications for Admission: Justification of Admission Dx: N/A LEYDI ALBERT MD Jun 01, 2020 14:02
[2020-06-01 15:00] VITALS: BP 141/64
[2020-06-01 15:47] LABS: BILIRUBIN,URINE NEGATIVE (NEG); CLARITY,URINE CLOUDY; COLOR,URINE YELLOW; NITRITE,URINE NEGATIVE (NEG); PROTEIN,URINE 100 mg/dL (NEG-TRACE); UROBILINOGEN,URINE 0.2 mg/dL (0.2 mg/dL)
[2020-06-01 15:54] LABS: BACTERIA,URINE MANY /HPF (0-FEW); WBC,URINE TNTC /HPF (0-4)
[2020-06-01 15:55] LABS: AMORPHOUS SEDIMENT,UR PRESENT /HPF; HYALINE CASTS, URINE OCCASIONAL /HPF
[2020-06-01] MEDS: MICONAZOLE NITRATE 2% TOPICAL CREAM 30GM TUBE. TP SCH ×2 (16:51→20:31)
[2020-06-01 19:35] VITALS: BP 135/50
[2020-06-01] MEDS: diphenhydrAMINE HCL 25 MG CAPSULE PO PRN (20:30)
[2020-06-01] MEDS: GABAPENTIN 400 MG CAPSULE. PO SCH (20:30)
[2020-06-01] MEDS: CYCLOBENZAPRINE 10 MG TABLET. PO PRN (20:30)
[2020-06-01 23:00] VITALS: BP 160/74
[2020-06-02 03:30] VITALS: BP 151/70
[2020-06-02 07:00] VITALS: BP 143/63
[2020-06-02] MEDS ORDERED: MAGNESIUM SULFATE 2GM 50 ML IV PRN (08:45)
[2020-06-02] MEDS: ZINC SULFATE 220 MG CAPSULE. PO SCH (09:12)
[2020-06-02] MEDS: FOLIC/VIT B COMP W-C (RENAL) TABLET. PO SCH (09:12)
[2020-06-02] MEDS: MULTIVITAMIN with MINERAL TABLET. PO SCH (09:12)
[2020-06-02] MEDS: DICYCLOMINE HCL 10 MG CAPSULE PO PRN (09:13)
[2020-06-02] MEDS: PANTOPRAZOLE 40 MG TABLET.DR. PO SCH (09:13)
[2020-06-02] MEDS: LACTOBACILLUS RHAMNOSUS GG 1 CAPSULE. PO SCH ×2 (09:13→21:18)
[2020-06-02] MEDS: CARVEDILOL 12.5 MG TABLET. PO SCH ×2 (09:14→17:21)
[2020-06-02] MEDS: LINAGLIPTIN 5 MG TABLET PO SCH (09:14)
[2020-06-02] MEDS: DULoxetine HCL 30 MG CAPSULE.DR PO SCH (09:14)
[2020-06-02] MEDS: SEVELAMER CARBONATE 800 MG TABLET. PO SCH ×3 (09:15→17:00)
[2020-06-02] MEDS: MICONAZOLE NITRATE 2% TOPICAL CREAM 30GM TUBE. TP SCH ×2 (09:16→21:23)
[2020-06-02] MEDS: NYSTATIN TOPICAL POWDER 15GM BOTTLE. TP SCH ×2 (09:16→21:23)
--- NOTE | 2020-06-02 09:28 | PDOC ---
DATE OF SERVICE: DOS: DATE: 06/02/20 TIME: 09:30 SUBJECTIVE ROS Follow-up for ESRD on hemodialysis Patient appears to be doing a little better today. She is now out of Covid restrictions. She does admit that she is extremely weak CVS: no Orthopnea, no CP RESP: no SOB, no JETT GI: no Nausea, no Vomiting : no Dysuria, no Urgency OBJECTIVE Vital Signs Vital Signs Date Time Temp Pulse Resp B/P (MAP) Pulse Ox O2 Delivery O2 Flow Rate FiO2 06/02/20 09:14 85 151/70 06/02/20 07:00 98.2 18 100 Nasal Cannula 1.0 98.2 I & 0 Intake and Output 06/02/20 06:55 Intake Total 300 ml Output Total 700 ml Balance -400 ml Intake Oral 300 ml Output Urine Total 700 ml # Voids 1 PHYSICAL EXAM Physical Exam GEN: Awake, Oriented x 3, In no distress, obese versus overweight EYES: Vision Unchanged, Conjunctiva Normal EN: No EN Drainage, Mucous Membranes moist NECK: no JVD, no JVP, Supple, no Thyromegaly CVS: S1S2, no Murmur, No Gallop, No Rub,no Edema RESP: no Rales, no Rhonchi,no Acc. Muscle Use GI: BS + ve, NO Bruit, Non Tender, Non Distended, slightly obese abdomen : no CVA tenderness, no Suprapubic Tenderness DIAGNOSIS/ASSESSMENT Assessment & Plan ESRD: Current fluid and E-lyte status does not necessitate emergent need for dialysis. Will re-evaluate for dialysis in the am and continue on MWF schedule. ANEMIA; increase Aranap as ordered, Transfuse with next HD as needed unless felt to be a transplant candidate HTN: Current BP meds as reviewed. See orders for changes. BONE & MINERAL: Follow phosphorus binders and alter regimen as needed Severe generalized debility as a result of COVID-19 pneumonitis; anticipate need to go to inpatient rehab for a while Hyponatremia: Follow-up in the morning Discussed Plan of Care with patient at bedside and nurse COMMENT/RELEVANT DATA Meds Current Medications Medications (Trade) Dose Ordered Sig/Mya Start Time Stop Time Status Last Admin Dose Admin Acetaminophen (Tylenol) 650 mg PRN Q4HRS PRN 04/27/20 23:15 05/26/20 08:26 650 MG Albumin Human 200 ml @ 200 mls/hr 1X PRN PRN 05/29/20 10:45 05/29/20 16:44 DC Amino Acids/ Glycerin/ Electrolytes 1,000 ml @ 80 mls/hr [id number] 05/23/20 11:45 05/30/20 09:21 DC 05/30/20 01:25 80 MLS/HR Ascorbic Acid (Vitamin C) 1,000 mg DAILY 04/28/20 13:00 04/30/20 08:57 DC 04/30/20 08:11 1,000 MG Atorvastatin Calcium (Lipitor) 40 mg QHS 04/27/20 21:00 04/30/20 08:57 DC 04/29/20 19:57 40 MG Atropine Sulfate (ATROPINE 0.5mg SYRINGE) 0.5 mg PRN Q5MIN PRN 05/19/20 09:45 05/21/20 16:18 DC Azithromycin 250 ml @ 250 mls/hr 1X ONCE 04/26/20 23:00 04/26/20 23:59 DC 04/26/20 23:18 250 MLS/HR Bisacodyl (Dulcolax Supp) 10 mg PRN DAILY PRN 05/26/20 17:45 05/26/20 17:55 10 MG Carvedilol (Coreg) 25 mg BIDWMEALS 05/01/20 17:00 06/02/20 09:14 25 MG Ceftriaxone Sodium (Rocephin) 1 gm Q24H 04/28/20 13:00 05/03/20 09:20 DC 05/02/20 12:20 1 GM Cyclobenzaprine HCl (Flexeril) 10 mg PRN QID PRN 04/28/20 21:00 06/01/20 20:30 10 MG Darbepoetin Deepak (ARANESP for DIALYSIS PTS) 60 mcg WEEKLYHS 05/29/20 21:00 05/29/20 20:14 60 MCG Dexamethasone (Decadron) 4 mg DAILYWBKFT 05/04/20 08:00 05/06/20 08:33 DC 05/06/20 08:15 4 MG Dexmedetomidine HCl 400 mcg/ Sodium Chloride 100 ml @ 6.99 mls/hr CONT PRN 05/19/20 09:45 05/21/20 16:18 DC 05/21/20 10:38 6.99 MLS/HR Dextrose (Dextrose 50%-Water Syringe) 12.5 gm PRN Q15MIN PRN 04/27/20 04:00 05/03/20 18:50 25 GM Dicyclomine HCl (Bentyl) 10 mg PRN TID PRN 05/18/20 22:15 06/02/20 09:13 10 MG Diphenhydramine HCl (Benadryl) 25 mg PRN TID PRN 05/30/20 14:30 06/01/20 20:30 25 MG Docusate Sodium (Colace) 100 mg BID 05/01/20 12:45 05/13/20 18:00 DC 05/13/20 09:01 100 MG Doxycycline Hyclate (Vibra-Tab) 100 mg BID 04/28/20 13:00 05/03/20 09:20 DC 05/03/20 08:36 100 MG Duloxetine HCl (Cymbalta) 30 mg DAILY08 05/31/20 09:00 06/02/20 09:14 30 MG Enoxaparin Sodium (Lovenox 30mg Syringe) 30 mg Q24H 04/28/20 13:00 04/28/20 12:38 DC Fluconazole (Diflucan) 200 mg DAILY08 05/26/20 12:00 06/01/20 08:01 DC 06/01/20 08:54 200 MG Gabapentin (Neurontin) 400 mg QHS 05/29/20 21:00 06/01/20 20:30 400 MG Heparin Sodium (Porcine) (Heparin Sodium) 2,500 unit 1X ONCE 05/20/20 11:00 05/20/20 11:01 DC 05/20/20 11:26 2,500 UNIT Info (CONTRAST GIVEN -- Rx MONITORING) 1 each PRN DAILY PRN 04/26/20 20:45 04/28/20 20:44 DC Info (PHARMACY MONITORING -- do not chart) 1 each PRN DAILY PRN 05/31/20 12:30 Insulin Glargine (Lantus Syringe) 65 unit DAILY 05/28/20 09:00 06/01/20 09:11 65 UNIT Insulin Human Lispro (HumaLOG) 10 units PRN BFRMEALHC PRN 05/28/20 08:45 05/29/20 12:27 10 UNITS Iohexol (Omnipaque 350 Mg/ml) 100 ml 1X ONCE 04/26/20 20:45 04/26/20 20:46 DC 04/26/20 21:20 100 ML Lactobacillus Rhamnosus (Culturelle) 1 cap BID 04/29/20 21:00 06/02/20 09:13 1 CAP Lactulose (Lactulose) 20 gm PRN 1X PRN 05/03/20 13:45 05/13/20 16:48 DC 05/12/20 15:41 20 GM Lidocaine HCl (Buffered Lidocaine 1%) 6 ml 1X ONCE 05/20/20 11:00 05/20/20 11:01 DC 05/20/20 11:22 3 ML Linagliptin (Tradjenta) 5 mg DAILY 04/27/20 09:00 06/02/20 09:14 5 MG Loperamide HCl (Imodium) 4 mg PRN TID PRN 05/17/20 22:30 05/22/20 07:58 4 MG Lorazepam (Ativan) 1 mg PRN Q8HRS PRN 05/18/20 22:15 05/28/20 09:26 1 MG Magnesium Sulfate 50 ml @ 25 mls/hr PRN DAILY PRN 06/02/20 08:45 06/02/20 08:45 DC Miconazole Nitrate (Monistat-Derm) 1 jackie BID 06/01/20 16:00 06/02/20 09:16 1 JACKIE Montelukast Sodium (Singulair) 10 mg HS 04/27/20 21:00 04/30/20 08:57 DC 04/29/20 19:57 10 MG Multivitamins (Thera M Plus) 1 tab DAILY 04/27/20 09:00 06/02/20 09:12 1 TAB Non-Formulary Medication (Gabapentin ) 600 mg HS 04/27/20 21:00 UNV Nystatin (Nystop) 1 jackie BID 05/08/20 21:00 UNV Ondansetron HCl (Zofran Odt) 4 mg PRN Q6HRS PRN 04/28/20 12:15 05/25/20 16:31 4 MG Ondansetron HCl (Zofran) 4 mg PRN Q8HRS PRN 04/26/20 22:45 04/27/20 22:44 DC Pantoprazole Sodium (PROTONIX VIAL for IV PUSH) 40 mg DAILY 05/02/20 09:00 05/07/20 15:25 DC 05/07/20 08:22 40 MG Pantoprazole Sodium (Protonix) 40 mg DAILYAC 05/08/20 07:30 06/02/20 09:13 40 MG Polyethylene Glycol (miraLAX PACKET) 34 gm PRN BID PRN 05/13/20 18:00 05/26/20 08:25 34 GM Potassium Chloride/Water 100 ml @ 100 mls/hr Q1H 05/01/20 15:00 05/01/20 18:59 DC 05/01/20 19:55 100 MLS/HR Potassium Chloride (Klor-Con) 20 meq DAILYWBKFT 05/02/20 08:00 05/29/20 08:40 DC 05/28/20 08:00 20 MEQ Remdesivir 100 mg/ Sodium Chloride 230 ml @ 460 mls/hr Q24H 04/29/20 14:00 05/02/20 14:29 DC 05/02/20 14:27 460 MLS/HR Remdesivir 200 mg/ Sodium Chloride 210 ml @ 210 mls/hr 1X ONCE 04/28/20 14:00 04/28/20 14:59 DC 04/28/20 15:39 210 MLS/HR Sevelamer Carbonate (Renvela) 1,600 mg TIDWMEALS 05/02/20 17:00 06/02/20 09:15 1,600 MG Simethicone (Gas-X) 80 mg PRN AFTMEALHC PRN 05/10/20 15:30 06/01/20 08:55 80 MG Sodium Bicarbonate (Sodium Bicarb Adult 8.4% Syr) 50 meq 1X ONCE 05/19/20 16:30 05/19/20 16:34 DC 05/19/20 16:51 50 MEQ Sodium Chloride 1,000 ml @ 400 mls/hr Q2H30M PRN 05/29/20 10:45 05/29/20 22:44 DC Sodium Chloride (Normal Saline Flush) 10 ml 1X PRN PRN 05/24/20 08:00 05/25/20 07:59 DC Sterile Water (WATER for RESP) 1,000 ml CONT PRN 04/30/20 20:30 05/18/20 23:51 1,000 ML Temazepam (Restoril) 15 mg PRN QHS PRN 05/13/20 18:00 05/29/20 23:03 15 MG Torsemide (Demadex) 40 mg BID94 04/27/20 09:00 05/29/20 08:40 DC 05/28/20 09:26 40 MG Vitamin B Complex/ Vitamin C (Kelly-Jalen) 1 tab DAILY 04/29/20 14:00 06/02/20 09:12 1 TAB Vitamin D (Vitamin D3) 500 unit DAILY 04/28/20 13:00 04/30/20 08:57 DC 04/30/20 08:10 500 UNIT Zinc Sulfate (Orazinc) 220 mg DAILY 04/28/20 13:00 06/02/20 09:12 220 MG Lab Laboratory Tests Test 06/01/20 15:40 06/01/20 17:26 06/01/20 21:05 06/02/20 08:48 Urine Collection Type Unknown Urine Color Yellow Urine Clarity Cloudy Urine pH 7.0 (<5.0-8.0) Urine Specific [place] 1.010 (1.000-1.030) Urine Protein 100 mg/dL (NEG-TRACE) Urine Glucose (UA) Negative mg/dL (NEG) Urine Ketones (Stick) Negative mg/dL (NEG) Urine Blood Large (NEG) Urine Nitrite Negative (NEG) Urine Bilirubin Negative (NEG) Urine Urobilinogen Dipstick 0.2 mg/dL (0.2 mg/dL) Urine Leukocyte Esterase Large (NEG) Urine RBC 6-10 /HPF (0-2) Urine WBC Tntc /HPF (0-4) Urine Squamous Epithelial Cells Few /LPF Urine Renal Epithelial Cells Occ /LPF Urine Amorphous Sediment Present /HPF Urine Bacteria Many /HPF (0-FEW) Urine Hyaline Casts Occasional /HPF Urine Mucus Slight /LPF Glucose (Fingerstick) 201 mg/dL (70-99) 194 mg/dL (70-99) 137 mg/dL (70-99) Results All relevant outside records, renal labs, imaging studies, telemetry/EKG's were reviewed. Justicifation of Admission Dx: Justifications for Admission: Justification of Admission Dx: N/A LEYDI ALBERT MD Jun 02, 2020 09:28
[2020-06-02] MEDS: INSULIN GLARGINE SYRINGE. SQ SCH (09:32)
[2020-06-02] MEDS: HEPARIN for SUB-Q USE 5,000 UNIT/ML VIAL. SQ SCH ×2 (09:35→21:19)
--- NOTE | 2020-06-02 09:59 | PDOC ---
Provider Note Date of Service: DATE: 06/02/20 TIME: 09:53 Provider Note vss, no change in status- glucose ok, last Na+ 128- no new problems- - feels vag itching better w/ ext cath out Justifications for Admission Other Justification VERNA GARCIA MD Jun 02, 2020 09:59
[2020-06-02 11:00] VITALS: BP 140/72
[2020-06-02 11:09] LABS: CALCIUM 9.5 mg/dL (8.5-10.1); CREATININE 3.8 mg/dL (0.6-1.0); GFR 12.3
--- NOTE | 2020-06-02 12:07 | PDOC ---
PULMONARY PROGRESS NOTES DATE: 06/02/20 TIME: 12:07 Subjective o 02 7 lpm alert sob better Vitals Vital Signs Date Time Temp Pulse Resp B/P (MAP) Pulse Ox O2 Delivery O2 Flow Rate FiO2 06/02/20 11:00 98.2 81 16 140/72 (94) 99 Nasal Cannula 7.0 98.2 ROS: No Nausea, No Chest Pain, No Abdominal Pain, No Increase Cough General: Alert, Oriented X4 Lungs: Clear Cardiovascular: S1, S2 Abdomen: Soft, Non-tender, Other (obese) Neuro Exam: Alert, Oriented Skin: Warm, Dry Labs Laboratory Tests Test 05/31/20 17:22 05/31/20 21:01 06/01/20 07:08 06/01/20 15:40 Glucose (Fingerstick) 179 mg/dL (70-99) 163 mg/dL (70-99) 134 mg/dL (70-99) Urine Collection Type Unknown Urine Color Yellow Urine Clarity Cloudy Urine pH 7.0 (<5.0-8.0) Urine Specific [place] 1.010 (1.000-1.030) Urine Protein 100 mg/dL (NEG-TRACE) Urine Glucose (UA) Negative mg/dL (NEG) Urine Ketones (Stick) Negative mg/dL (NEG) Urine Blood Large (NEG) Urine Nitrite Negative (NEG) Urine Bilirubin Negative (NEG) Urine Urobilinogen Dipstick 0.2 mg/dL (0.2 mg/dL) Urine Leukocyte Esterase Large (NEG) Urine RBC 6-10 /HPF (0-2) Urine WBC Tntc /HPF (0-4) Urine Squamous Epithelial Cells Few /LPF Urine Renal Epithelial Cells Occ /LPF Urine Amorphous Sediment Present /HPF Urine Bacteria Many /HPF (0-FEW) Urine Hyaline Casts Occasional /HPF Urine Mucus Slight /LPF Test 06/01/20 17:26 06/01/20 21:05 06/02/20 08:48 06/02/20 09:20 Glucose (Fingerstick) 201 mg/dL (70-99) 194 mg/dL (70-99) 137 mg/dL (70-99) Sodium Level 131 mmol/L (136-145) Potassium Level 5.0 mmol/L (3.5-5.1) Chloride Level 97 mmol/L (98-107) Carbon Dioxide Level 30 mmol/L (21-32) Anion Gap 4 (6-14) Blood Urea Nitrogen 41 mg/dL (7-20) Creatinine 3.8 mg/dL (0.6-1.0) Estimated GFR (Cockcroft-Gault) 12.3 Glucose Level 118 mg/dL (70-99) Calcium Level 9.5 mg/dL (8.5-10.1) Laboratory Tests Test 06/01/20 15:40 06/01/20 17:26 06/01/20 21:05 06/02/20 08:48 Urine Collection Type Unknown Urine Color Yellow Urine Clarity Cloudy Urine pH 7.0 (<5.0-8.0) Urine Specific [place] 1.010 (1.000-1.030) Urine Protein 100 mg/dL (NEG-TRACE) Urine Glucose (UA) Negative mg/dL (NEG) Urine Ketones (Stick) Negative mg/dL (NEG) Urine Blood Large (NEG) Urine Nitrite Negative (NEG) Urine Bilirubin Negative (NEG) Urine Urobilinogen Dipstick 0.2 mg/dL (0.2 mg/dL) Urine Leukocyte Esterase Large (NEG) Urine RBC 6-10 /HPF (0-2) Urine WBC Tntc /HPF (0-4) Urine Squamous Epithelial Cells Few /LPF Urine Renal Epithelial Cells Occ /LPF Urine Amorphous Sediment Present /HPF Urine Bacteria Many /HPF (0-FEW) Urine Hyaline Casts Occasional /HPF Urine Mucus Slight /LPF Glucose (Fingerstick) 201 mg/dL (70-99) 194 mg/dL (70-99) 137 mg/dL (70-99) Test 06/02/20 09:20 Sodium Level 131 mmol/L (136-145) Potassium Level 5.0 mmol/L (3.5-5.1) Chloride Level 97 mmol/L (98-107) Carbon Dioxide Level 30 mmol/L (21-32) Anion Gap 4 (6-14) Blood Urea Nitrogen 41 mg/dL (7-20) Creatinine 3.8 mg/dL (0.6-1.0) Estimated GFR (Cockcroft-Gault) 12.3 Glucose Level 118 mg/dL (70-99) Calcium Level 9.5 mg/dL (8.5-10.1) Medications Active Scripts Medications Dose Route/Sig Max Daily Dose Days Date Category Dose Instructions Gabapentin 600 Mg Tablet 600 Mg PO HS 04/27/20 Reported Gabapentin (Gabapentin) 300 Mg Capsule 300 Mg PO DAILY 04/27/20 Reported Lantus Solostar (Insulin Glargine,Hum.rec.anlog) 100 Unit/1 Ml Insuln.pen 75 Unit SQ BID 09/19/19 Reported Januvia (Sitagliptin Phosphate) 25 Mg Tablet 25 Mg PO DAILY 09/19/19 Reported Novolog (Insulin Aspart) 100 Unit/1 Ml Cartridge 0 SQ TIDAC 01/26/19 Reported Sliding scale; patient has printout (at home) of scale. Unknown at this time. Singulair Tablet (Montelukast Sodium) 10 Mg Tablet 10 Mg PO HS 11/24/18 Reported Atorvastatin Calcium 40 Mg Tablet 1 Tab PO QHS 11/24/18 Reported Torsemide 20 Mg Tablet 2 Tab PO BID 11/24/18 Reported Cymbalta (Duloxetine Hcl) 30 Mg Capsule.dr 1 Cap PO BID 11/24/18 Reported Daily Jalen (Multivitamin) 1 Each Tablet 1 Each PO DAILY 11/24/18 Reported Comments CXR 05/20 IMPRESSION: Slightly improved diffuse bilateral opacities. CTA chest IMPRESSION: 1. No evidence of pulmonary thromboembolic disease. 2. Multifocal bilateral groundglass opacities and consolidations, consistent with patient's history of infection. 3. Dilated pulmonary trunk, which can be seen with pulmonary hypertension. Impression . IMPRESSION: 1. Acute hypoxemic respiratory failure secondary to COVID-19 viral pneumonia./ ALI/ARDS--ongoing need for high levels of oxygen 2. COVID-[address] angiogram, no evidence of pulmonary embolism. 4. Chronic kidney disease, previously peritoneal dialysis, now HD 5. Morbid obesity. 6. Obstructive sleep apnea. 7. Hyperlipidemia. 8. Hypertension. Plan . PLAN: Continue supplemental oxygen to keep oxygen saturations 90%, wean oxygen as tolerated bipap prn Pt. has completed full course of steroids monitor off ABX Pt. has completed Full course of remdesivir Follow nephrology recommendations----- HD, Physical therapy/Occupational Therapy DVT/GI prophylaxis Discussed with RN patient is a DNR/DNI Social work for D/C planning -- has been declined at ROBIN MIKE MD Jun 02, 2020 12:07
[2020-06-02 15:00] VITALS: BP 141/63
[2020-06-02] MEDS: ACETAMINOPHEN 325 MG TABLET. PO PRN ×2 (17:20→21:18)
[2020-06-02 19:40] VITALS: BP 143/57
[2020-06-02] MEDS: GABAPENTIN 400 MG CAPSULE. PO SCH (21:18)
[2020-06-02 22:40] VITALS: BP 132/61
[2020-06-03 03:40] VITALS: BP 119/65
[2020-06-03 05:38] LABS: ALBUMIN 2.7 g/dL (3.4-5.0); CALCIUM 9.5 mg/dL (8.5-10.1); CREATININE 4.4 mg/dL (0.6-1.0); GFR 10.4; PHOSPHORUS 3.6 mg/dL (2.6-4.7); POTASSIUM 4.9 mmol/L (3.5-5.1)
[2020-06-03 07:00] VITALS: BP 166/74
--- NOTE | 2020-06-03 08:36 | PDOC ---
Provider Note Date of Service: DATE: 06/03/20 TIME: 08:35 Provider Note vss, no temp, labs better re Na+, will continue same , placememnt Justifications for Admission Other Justification VERNA GARCIA MD Jun 03, 2020 08:36
[2020-06-03] MEDS: LACTOBACILLUS RHAMNOSUS GG 1 CAPSULE. PO SCH ×2 (08:42→21:19)
[2020-06-03] MEDS: SEVELAMER CARBONATE 800 MG TABLET. PO SCH ×3 (08:42→17:41)
[2020-06-03] MEDS: PANTOPRAZOLE 40 MG TABLET.DR. PO SCH (08:42)
[2020-06-03] MEDS: MULTIVITAMIN with MINERAL TABLET. PO SCH (08:43)
[2020-06-03] MEDS: FOLIC/VIT B COMP W-C (RENAL) TABLET. PO SCH (08:43)
[2020-06-03] MEDS: DULoxetine HCL 30 MG CAPSULE.DR PO SCH (08:43)
[2020-06-03] MEDS: CARVEDILOL 12.5 MG TABLET. PO SCH ×2 (08:43→17:41)
[2020-06-03] MEDS: LINAGLIPTIN 5 MG TABLET PO SCH (08:43)
[2020-06-03] MEDS: ZINC SULFATE 220 MG CAPSULE. PO SCH (08:43)
[2020-06-03] MEDS: HEPARIN for SUB-Q USE 5,000 UNIT/ML VIAL. SQ SCH ×2 (08:46→21:26)
[2020-06-03] MEDS: INSULIN GLARGINE SYRINGE. SQ SCH (08:47)
[2020-06-03] MEDS: NYSTATIN TOPICAL POWDER 15GM BOTTLE. TP SCH ×2 (08:51→22:17)
[2020-06-03] MEDS: MICONAZOLE NITRATE 2% TOPICAL CREAM 30GM TUBE. TP SCH ×2 (08:51→22:16)
[2020-06-03] MEDS: CYCLOBENZAPRINE 10 MG TABLET. PO PRN ×2 (10:32→21:19)
[2020-06-03] MEDS: ACETAMINOPHEN 325 MG TABLET. PO PRN ×2 (10:33→17:41)
[2020-06-03 11:00] VITALS: BP 160/59
--- NOTE | 2020-06-03 11:39 | PDOC ---
PULMONARY PROGRESS NOTES DATE: 06/03/20 TIME: 11:35 Subjective Patient is up to the chair today resting comfortably on 7 L nasal cannula Grade fever overnight and complaints of headache on examination today Overnight concerns from nursing Vitals Vital Signs Date Time Temp Pulse Resp B/P (MAP) Pulse Ox O2 Delivery O2 Flow Rate FiO2 06/03/20 11:00 99.0 89 21 160/59 (92) 100 High Flow Nasal Cannula 9.0 99.0 ROS: No Nausea, No Chest Pain, No Abdominal Pain, No Increase Cough General: Alert, Oriented X4 Lungs: Clear Cardiovascular: S1, S2 Abdomen: Soft, Non-tender, Other (obese) Neuro Exam: Alert, Oriented Skin: Warm, Dry Labs Laboratory Tests Test 06/01/20 15:40 06/01/20 17:26 06/01/20 21:05 06/02/20 08:48 Urine Collection Type Unknown Urine Color Yellow Urine Clarity Cloudy Urine pH 7.0 (<5.0-8.0) Urine Specific [place] 1.010 (1.000-1.030) Urine Protein 100 mg/dL (NEG-TRACE) Urine Glucose (UA) Negative mg/dL (NEG) Urine Ketones (Stick) Negative mg/dL (NEG) Urine Blood Large (NEG) Urine Nitrite Negative (NEG) Urine Bilirubin Negative (NEG) Urine Urobilinogen Dipstick 0.2 mg/dL (0.2 mg/dL) Urine Leukocyte Esterase Large (NEG) Urine RBC 6-10 /HPF (0-2) Urine WBC Tntc /HPF (0-4) Urine Squamous Epithelial Cells Few /LPF Urine Renal Epithelial Cells Occ /LPF Urine Amorphous Sediment Present /HPF Urine Bacteria Many /HPF (0-FEW) Urine Hyaline Casts Occasional /HPF Urine Mucus Slight /LPF Glucose (Fingerstick) 201 mg/dL (70-99) 194 mg/dL (70-99) 137 mg/dL (70-99) Test 06/02/20 09:20 06/02/20 11:56 06/02/20 16:50 06/02/20 21:15 Sodium Level 131 mmol/L (136-145) Potassium Level 5.0 mmol/L (3.5-5.1) Chloride Level 97 mmol/L (98-107) Carbon Dioxide Level 30 mmol/L (21-32) Anion Gap 4 (6-14) Blood Urea Nitrogen 41 mg/dL (7-20) Creatinine 3.8 mg/dL (0.6-1.0) Estimated GFR (Cockcroft-Gault) 12.3 Glucose Level 118 mg/dL (70-99) Calcium Level 9.5 mg/dL (8.5-10.1) Glucose (Fingerstick) 197 mg/dL (70-99) 190 mg/dL (70-99) 143 mg/dL (70-99) Test 06/03/20 04:30 06/03/20 08:03 Hemoglobin 8.1 g/dL (12.0-15.5) Sodium Level 132 mmol/L (136-145) Potassium Level 4.9 mmol/L (3.5-5.1) Chloride Level 97 mmol/L (98-107) Carbon Dioxide Level 30 mmol/L (21-32) Anion Gap 5 (6-14) Blood Urea Nitrogen 47 mg/dL (7-20) Creatinine 4.4 mg/dL (0.6-1.0) Estimated GFR (Cockcroft-Gault) 10.4 Glucose Level 97 mg/dL (70-99) Calcium Level 9.5 mg/dL (8.5-10.1) Phosphorus Level 3.6 mg/dL (2.6-4.7) Albumin 2.7 g/dL (3.4-5.0) Glucose (Fingerstick) 165 mg/dL (70-99) Laboratory Tests Test 06/02/20 11:56 06/02/20 16:50 06/02/20 21:15 06/03/20 04:30 Glucose (Fingerstick) 197 mg/dL (70-99) 190 mg/dL (70-99) 143 mg/dL (70-99) Hemoglobin 8.1 g/dL (12.0-15.5) Sodium Level 132 mmol/L (136-145) Potassium Level 4.9 mmol/L (3.5-5.1) Chloride Level 97 mmol/L (98-107) Carbon Dioxide Level 30 mmol/L (21-32) Anion Gap 5 (6-14) Blood Urea Nitrogen 47 mg/dL (7-20) Creatinine 4.4 mg/dL (0.6-1.0) Estimated GFR (Cockcroft-Gault) 10.4 Glucose Level 97 mg/dL (70-99) Calcium Level 9.5 mg/dL (8.5-10.1) Phosphorus Level 3.6 mg/dL (2.6-4.7) Albumin 2.7 g/dL (3.4-5.0) Test 06/03/20 08:03 Glucose (Fingerstick) 165 mg/dL (70-99) Medications Active Scripts Medications Dose Route/Sig Max Daily Dose Days Date Category Dose Instructions Gabapentin 600 Mg Tablet 600 Mg PO HS 04/27/20 Reported Gabapentin (Gabapentin) 300 Mg Capsule 300 Mg PO DAILY 04/27/20 Reported Lantus Solostar (Insulin Glargine,Hum.rec.anlog) 100 Unit/1 Ml Insuln.pen 75 Unit SQ BID 09/19/19 Reported Januvia (Sitagliptin Phosphate) 25 Mg Tablet 25 Mg PO DAILY 09/19/19 Reported Novolog (Insulin Aspart) 100 Unit/1 Ml Cartridge 0 SQ TIDAC 01/26/19 Reported Sliding scale; patient has printout (at home) of scale. Unknown at this time. Singulair Tablet (Montelukast Sodium) 10 Mg Tablet 10 Mg PO HS 11/24/18 Reported Atorvastatin Calcium 40 Mg Tablet 1 Tab PO QHS 11/24/18 Reported Torsemide 20 Mg Tablet 2 Tab PO BID 11/24/18 Reported Cymbalta (Duloxetine Hcl) 30 Mg Capsule.dr 1 Cap PO BID 11/24/18 Reported Daily Jalen (Multivitamin) 1 Each Tablet 1 Each PO DAILY 11/24/18 Reported Comments CXR 05/20 IMPRESSION: Slightly improved diffuse bilateral opacities. CTA chest IMPRESSION: 1. No evidence of pulmonary thromboembolic disease. 2. Multifocal bilateral groundglass opacities and consolidations, consistent wit h patient's history of infection. 3. Dilated pulmonary trunk, which can be seen with pulmonary hypertension. Impression . IMPRESSION: 1. Acute hypoxemic respiratory failure secondary to COVID-19 viral pneumonia./ ALI/ARDS--slowly improving 2. COVID-[address] angiogram, no evidence of pulmonary embolism. 4. Chronic kidney disease, previously peritoneal dialysis, now HD 5. Morbid obesity. 6. Obstructive sleep apnea. 7. Hyperlipidemia. 8. Hypertension. Plan . PLAN: Continue supplemental oxygen to keep oxygen saturations 90%, wean oxygen as elza erated ----slow clinical improvement, currently on 7 L nasal cannula Pt. has completed full course of steroids Patient is completed full course of antibiotics Pt. has completed Full course of remdesivir Follow nephrology recommendations----- HD, Hypertension per PCP Symptomatic treatment of headache Physical therapy/Occupational Therapy DVT/GI prophylaxis Discussed with RN patient is a DNR/DNI Social work for D/C planning RAFAL SINHA MD Jun 03, 2020 11:39
--- NOTE | 2020-06-03 11:40 | PDOC ---
PROGRESS NOTES Date of Service DATE: 06/03/20 TIME: 11:38 Assessment Problems Medical Problems: (1) CAP (community acquired pneumonia) Status: Acute (2) COVID-19 Status: Acute Metabolic encephalopathy, CT head negative, much better after BiPAP 05/28. She did have abnormal blood gas, 05/28, worse hypercarbia than before. Other lab work is negative COVID-19 pneumonia, hypertension, sleep apnea, obesity, end-stage renal failure on dialysis Plan Continue treating pulmonary issues, no need for additional neurological studies Subjective No complaints Objective Vital Signs Date Time Temp Pulse Resp B/P (MAP) Pulse Ox O2 Delivery O2 Flow Rate FiO2 06/03/20 11:00 99.0 89 21 160/59 (92) 100 High Flow Nasal Cannula 9.0 99.0 Intake and Output 06/03/20 07:00 Intake Total 100 ml Output Total 200 ml Balance -100 ml Intake Oral 100 ml Output Urine Total 200 ml # Voids 2 # Bowel Movements 2 PHYSICAL EXAM Alert. Oriented to time, place and person. No hallucinations PERRL. EOMI. CN: no focal findings. Muscle tone: normal. Muscle strength: 4/5 DTR: 0-1+ Plantar reflex: Flexor Gait: not examined in bed. Sensory exam: no abnormal findings. No cerebellar signs elicited. Review of Relevant I have reviewed the following items louann (where applicable) has been applied. Labs Laboratory Tests Test 06/01/20 15:40 06/01/20 17:26 06/01/20 21:05 06/02/20 08:48 Urine Collection Type Unknown Urine Color Yellow Urine Clarity Cloudy Urine pH 7.0 (<5.0-8.0) Urine Specific [place] 1.010 (1.000-1.030) Urine Protein 100 mg/dL (NEG-TRACE) Urine Glucose (UA) Negative mg/dL (NEG) Urine Ketones (Stick) Negative mg/dL (NEG) Urine Blood Large (NEG) Urine Nitrite Negative (NEG) Urine Bilirubin Negative (NEG) Urine Urobilinogen Dipstick 0.2 mg/dL (0.2 mg/dL) Urine Leukocyte Esterase Large (NEG) Urine RBC 6-10 /HPF (0-2) Urine WBC Tntc /HPF (0-4) Urine Squamous Epithelial Cells Few /LPF Urine Renal Epithelial Cells Occ /LPF Urine Amorphous Sediment Present /HPF Urine Bacteria Many /HPF (0-FEW) Urine Hyaline Casts Occasional /HPF Urine Mucus Slight /LPF Glucose (Fingerstick) 201 mg/dL (70-99) 194 mg/dL (70-99) 137 mg/dL (70-99) Test 06/02/20 09:20 06/02/20 11:56 06/02/20 16:50 06/02/20 21:15 Sodium Level 131 mmol/L (136-145) Potassium Level 5.0 mmol/L (3.5-5.1) Chloride Level 97 mmol/L (98-107) Carbon Dioxide Level 30 mmol/L (21-32) Anion Gap 4 (6-14) Blood Urea Nitrogen 41 mg/dL (7-20) Creatinine 3.8 mg/dL (0.6-1.0) Estimated GFR (Cockcroft-Gault) 12.3 Glucose Level 118 mg/dL (70-99) Calcium Level 9.5 mg/dL (8.5-10.1) Glucose (Fingerstick) 197 mg/dL (70-99) 190 mg/dL (70-99) 143 mg/dL (70-99) Test 06/03/20 04:30 06/03/20 08:03 Hemoglobin 8.1 g/dL (12.0-15.5) Sodium Level 132 mmol/L (136-145) Potassium Level 4.9 mmol/L (3.5-5.1) Chloride Level 97 mmol/L (98-107) Carbon Dioxide Level 30 mmol/L (21-32) Anion Gap 5 (6-14) Blood Urea Nitrogen 47 mg/dL (7-20) Creatinine 4.4 mg/dL (0.6-1.0) Estimated GFR (Cockcroft-Gault) 10.4 Glucose Level 97 mg/dL (70-99) Calcium Level 9.5 mg/dL (8.5-10.1) Phosphorus Level 3.6 mg/dL (2.6-4.7) Albumin 2.7 g/dL (3.4-5.0) Glucose (Fingerstick) 165 mg/dL (70-99) Laboratory Tests Test 06/02/20 11:56 06/02/20 16:50 06/02/20 21:15 06/03/20 04:30 Glucose (Fingerstick) 197 mg/dL (70-99) 190 mg/dL (70-99) 143 mg/dL (70-99) Hemoglobin 8.1 g/dL (12.0-15.5) Sodium Level 132 mmol/L (136-145) Potassium Level 4.9 mmol/L (3.5-5.1) Chloride Level 97 mmol/L (98-107) Carbon Dioxide Level 30 mmol/L (21-32) Anion Gap 5 (6-14) Blood Urea Nitrogen 47 mg/dL (7-20) Creatinine 4.4 mg/dL (0.6-1.0) Estimated GFR (Cockcroft-Gault) 10.4 Glucose Level 97 mg/dL (70-99) Calcium Level 9.5 mg/dL (8.5-10.1) Phosphorus Level 3.6 mg/dL (2.6-4.7) Albumin 2.7 g/dL (3.4-5.0) Test 06/03/20 08:03 Glucose (Fingerstick) 165 mg/dL (70-99) Microbiology 06/01/20 Urine Culture - Preliminary, Resulted 04/26/20 Blood Culture - Final, Complete NO GROWTH AFTER 5 DAYS Medications Current Medications Sodium Chloride 1,000 ml @ 1,000 mls/hr 1X ONCE IV Last administered on 04/26/20at 19:17; Start 04/26/20 at 19:15; Stop 04/26/20 at 20:14; Status DC Iohexol (Omnipaque 350 Mg/ml) 100 ml 1X ONCE IV Last administered on 04/26/20at 21:20; Start 04/26/20 at 20:45; Stop 04/26/20 at 20:46; Status DC Info (CONTRAST GIVEN -- Rx MONITORING) 1 each PRN DAILY PRN MC SEE COMMENTS; Start 04/26/20 at 20:45; Stop 04/28/20 at 20:44; Status DC Ceftriaxone Sodium (Rocephin) 1 gm 1X ONCE IVP Last administered on 04/26/20at 23:18; Start 04/26/20 at 23:00; Stop 04/26/20 at 23:01; Status DC Azithromycin 250 ml @ 250 mls/hr 1X ONCE IV Last administered on 04/26/20at 23:18; Start 04/26/20 at 23:00; Stop 04/26/20 at 23:59; Status DC Ondansetron HCl (Zofran) 4 mg PRN Q8HRS PRN IV NAUSEA/VOMITING 1ST CHOICE; Start 04/26/20 at 22:45; Stop 04/27/20 at 22:44; Status DC Acetaminophen (Tylenol) 650 mg PRN Q4HRS PRN PO FEVER > 100.3'F Last administered on 04/27/20at 16:47; Start 04/26/20 at 22:45; Stop 04/27/20 at 22:44; Status DC Atorvastatin Calcium (Lipitor) 40 mg QHS PO Last administered on 04/29/20at 19:57; Start 04/27/20 at 21:00; Stop 04/30/20 at 08:57; Status DC Duloxetine HCl (Cymbalta) 30 mg BID PO Last administered on 05/30/20at 20:53; Start 04/27/20 at 09:00; Stop 05/31/20 at 08:43; Status DC Gabapentin (Neurontin) 300 mg DAILY PO ; Start 04/27/20 at 04:30; Status Cancel Montelukast Sodium (Singulair) 10 mg HS PO Last administered on 04/29/20at 19:57; Start 04/27/20 at 21:00; Stop 04/30/20 at 08:57; Status DC Torsemide (Demadex) 40 mg [id number] PO Last administered on 05/28/20at 09:26; Start 04/27/20 at 09:00; Stop 05/29/20 at 08:40; Status DC Non-Formulary Medication (Gabapentin ) 600 mg HS PO ; Start 04/27/20 at 21:00; Status UNV Insulin Human Lispro (HumaLOG) 25 units TIDWMEALS SQ Last administered on 04/29/20at 08:34; Start 04/27/20 at 08:00; Stop 04/29/20 at 08:56; Status DC Insulin Glargine (Lantus Syringe) 75 unit BID SQ Last administered on 04/29/20at 08:35; Start 04/27/20 at 09:00; Stop 04/29/20 at 08:56; Status DC Multivitamins (Thera M Plus) 1 tab DAILY PO Last administered on 06/03/20at 08:43; Start 04/27/20 at 09:00 Linagliptin (Tradjenta) 5 mg DAILY PO Last administered on 06/03/20 08:43; Start 04/27/20 at 09:00 Gabapentin (Neurontin) 600 mg TID STAT PO ; Start 04/27/20 at 03:51; Stop 04/27/20 at 03:52; Status UNV Dextrose (Dextrose 50%-Water Syringe) 12.5 gm PRN Q15MIN PRN IV SEE COMMENTS Last administered on 05/03/20at 18:50; Start 04/27/20 at 04:00 Gabapentin (Neurontin) 600 mg QHS PO Last administered on 05/27/20 20:36; Start 04/27/20 at 04:30; Stop 05/29/20 at 08:56; Status DC Acetaminophen (Tylenol) 650 mg PRN Q4HRS PRN PEG MILD PAIN / TEMP > 100.3'F; Start 04/27/20 at 23:00; Status Cancel Acetaminophen (Tylenol) 650 mg PRN Q4HRS PRN PO MILD PAIN / TEMP > 100.3'F Last administered on 06/03/20 10:33; Start 04/27/20 at 23:15 Remdesivir 200 mg/ Sodium Chloride 210 ml @ 210 mls/hr 1X ONCE IV Last administered on 04/28/20at 15:39; Start 04/28/20 at 14:00; Stop 04/28/20 at 14:59; Status DC Remdesivir 100 mg/ Sodium Chloride 230 ml @ 460 mls/hr Q24H IV ; Start 04/29/20 at 14:00; Stop 05/02/20 at 14:29; Status Cancel Ondansetron HCl (Zofran Odt) 4 mg PRN Q6HRS PRN PO NAUSEA/VOMITING Last administered on 05/25/20 16:31; Start 04/28/20 at 12:15 Heparin Sodium (Porcine) (Heparin Sodium) 5,000 unit Q8HRS SQ Last administered on 05/18/20 05:45; Start 04/28/20 at 14:00; Stop 05/18/20 at 14:14; Status DC Dexamethasone (Decadron) 6 mg DAILYWBKFT PO Last administered on 05/03/20at 08:37; Start 04/29/20 at 08:00; Stop 05/03/20 at 10:09; Status DC Dexamethasone (Decadron) 6 mg 1X ONCE PO Last administered on 04/28/20at 12:34; Start 04/28/20 at 13:00; Stop 04/28/20 at 13:01; Status DC Enoxaparin Sodium (Lovenox 30mg Syringe) 30 mg Q24H SQ ; Start 04/28/20 at 13:00; Stop 04/28/20 at 12:38; Status DC Doxycycline Hyclate (Vibra-Tab) 100 mg BID PO Last administered on 05/03/20at 08:36; Start 04/28/20 at 13:00; Stop 05/03/20 at 09:20; Status DC Ceftriaxone Sodium (Rocephin) 1 gm Q24H IVP Last administered on 05/02/20at 12:20; Start 04/28/20 at 13:00; Stop 05/03/20 at 09:20; Status DC Zinc Sulfate (Orazinc) 220 mg DAILY PO Last administered on 06/03/20at 08:43; Start 04/28/20 at 13:00 Vitamin D (Vitamin D3) 500 unit DAILY PO Last administered on 04/30/20at 08:10; Start 04/28/20 at 13:00; Stop 04/30/20 at 08:57; Status DC Ascorbic Acid (Vitamin C) 1,000 mg DAILY PO Last administered on 04/30/20at 08:11; Start 04/28/20 at 13:00; Stop 04/30/20 at 08:57; Status DC Temazepam (Restoril) 15 mg PRN QHS PRN PO INSOMNIA Last administered on 04/28/20at 22:48; Start 04/28/20 at 21:00; Stop 04/29/20 at 06:48; Status DC Cyclobenzaprine HCl (Flexeril) 10 mg PRN QID PRN PO MUSCLE SPASMS Last administered on 06/03/20at 10:32; Start 04/28/20 at 21:00 Insulin Glargine (Lantus Syringe) 85 unit BID SQ Last administered on 04/30/20at 20:39; Start 04/29/20 at 21:00; Stop 05/01/20 at 08:38; Status DC Insulin Human Lispro (HumaLOG) 30 units TIDWMEALS SQ Last administered on 05/03/20at 13:34; Start 04/29/20 at 12:00; Stop 05/03/20 at 19:55; Status DC Potassium Chloride (Klor-Con) 40 meq 1X ONCE PO Last administered on 04/29/20at 12:34; Start 04/29/20 at 12:30; Stop 04/29/20 at 12:31; Status DC Potassium Chloride (Klor-Con) 20 meq DAILYWBKFT PO Last administered on 04/30/20at 08:10; Start 04/30/20 at 08:00; Stop 04/30/20 at 08:57; Status DC Sevelamer Carbonate (Renvela) 800 mg TIDWMEALS PO Last administered on 05/02/20at 12:03; Start 04/29/20 at 17:00; Stop 05/02/20 at 12:44; Status DC Vitamin B Complex/ Vitamin C (Kelly-Jalen) 1 tab DAILY PO Last administered on 06/03/20at 08:43; Start 04/29/20 at 14:00 Remdesivir 100 mg/ Sodium Chloride 230 ml @ 460 mls/hr Q24H IV Last administered on 05/02/20at 14:27; Start 04/29/20 at 14:00; Stop 05/02/20 at 14:29; Status DC Lactobacillus Rhamnosus (Culturelle) 1 cap BID PO Last administered on 06/03/20at 08:42; Start 04/29/20 at 21:00 Potassium Chloride (Klor-Con) 20 meq 1X ONCE PO Last administered on 04/10 06/29at 14:40; Start 04/30/20 at 12:45; Stop 04/30/20 at 12:47; Status DC Sterile Water (WATER for RESP) 1,000 ml CONT PRN INH VIA VAPOTHERM DEVICE Last administered on 05/18/20at 23:51; Start 04/30/20 at 20:30 Insulin Glargine (Lantus Syringe) 75 unit BID SQ Last administered on 05/01/20at 20:52; Start 05/01/20 at 09:00; Stop 05/02/20 at 08:21; Status DC Carvedilol (Coreg) 25 mg BIDWMEALS PO Last administered on 06/03/20 08:43; Start 05/01/20 at 17:00 Docusate Sodium (Colace) 100 mg PRN BID PRN PO HARD STOOLS; Start 05/01/20 at 12:45; Stop 05/01/20 at 12:45; Status DC Docusate Sodium (Colace) 100 mg BID PO Last administered on 05/13/20at 09:01; Start 05/01/20 at 12:45; Stop 05/13/20 at 18:00; Status DC Potassium Chloride/Water 100 ml @ 100 mls/hr Q1H IV Last administered on 05/01/20at 19:55; Start 05/01/20 at 15:00; Stop 05/01/20 at 18:59; Status DC Potassium Chloride (Klor-Con) 20 meq DAILYWBKFT PO Last administered on 05/28/20 08:00; Start 05/02/20 at 08:00; Stop 05/29/20 at 08:40; Status DC Insulin Glargine (Lantus Syringe) 80 unit BID SQ Last administered on 05/03/20at 09:14; Start 05/02/20 at 09:00; Stop 05/03/20 at 19:55; Status DC Pantoprazole Sodium (PROTONIX VIAL for IV PUSH) 40 mg DAILY IVP Last administered on 05/07/20at 08:22; Start 05/02/20 at 09:00; Stop 05/07/20 at 15:25; Status DC Sevelamer Carbonate (Renvela) 1,600 mg TIDWMEALS PO Last administered on 06/03/20at 08:42; Start 05/02/20 at 17:00 Dexamethasone (Decadron) 4 mg DAILYWBKFT PO Last administered on 05/06/20at 08:15; Start 05/04/20 at 08:00; Stop 05/06/20 at 08:33; Status DC Lactulose (Lactulose) 20 gm 1X ONCE PO Last administered on 05/03/20at 15:32; Start 05/03/20 at 13:45; Stop 05/03/20 at 13:46; Status DC Lactulose (Lactulose) 20 gm PRN 1X PRN PO CONSTIPATION Last administered on 05/12/20at 15:41; Start 05/03/20 at 13:45; Stop 05/13/20 at 16:48; Status DC Insulin Glargine (Lantus Syringe) 60 unit BID SQ Last administered on 05/04/20at 22:04; Start 05/04/20 at 09:00; Stop 05/05/20 at 01:34; Status DC Insulin Human Lispro (HumaLOG) 15 units TIDAC SQ Last administered on 05/04/20at 07:49; Start 05/04/20 at 07:30; Stop 05/04/20 at 12:45; Status DC Insulin Glargine (Lantus Syringe) 60 unit 1X ONCE SQ Last administered on 05/04/20at 01:19; Start 05/04/20 at 01:15; Stop 05/04/20 at 01:16; Status DC Amino Acids/ Glycerin/ Electrolytes 1,000 ml @ 80 mls/hr [id number] IV Last administered on 05/07/20at 05:27; Start 05/04/20 at 10:15; Stop 05/07/20 at 12:31; Status DC Insulin Human Lispro (HumaLOG) 20 units 1X ONCE SQ Last administered on 05/04/20at 22:51; Start 05/04/20 at 22:45; Stop 05/04/20 at 22:46; Status DC Insulin Human Lispro (HumaLOG) 30 units 1X ONCE SQ Last administered on 05/05/20at 02:04; Start 05/05/20 at 01:45; Stop 05/05/20 at 01:47; Status DC Insulin Glargine (Lantus Syringe) 20 unit 1X ONCE SQ Last administered on 05/05/20at 02:04; Start 05/05/20 at 02:00; Stop 05/05/20 at 02:01; Status DC Insulin Glargine (Lantus Syringe) 80 unit BID SQ Last administered on at 08:25; Start 05/05/20 at 09:00; Stop 05/08/20 at 08:27; Status DC Insulin Human Lispro (HumaLOG) 20 units 1X ONCE SQ Last administered on 05/06/20at 03:37; Start 05/06/20 at 03:00; Stop 05/06/20 at 03:01; Status DC Insulin Human Lispro (HumaLOG) 20 units PRN BFRMEALHC PRN SQ Blood glucose > 200 mg/dL Last administered on 05/13/20at 09:05; Start 05/06/20 at 03:00; Stop 05/28/20 at 08:38; Status DC Pantoprazole Sodium (Protonix) 40 mg DAILYAC PO Last administered on 06/03/20at 08:42; Start 05/08/20 at 07:30 Insulin Glargine (Lantus Syringe) 80 unit DAILY SQ ; Start 05/08/20 at 09:00; Stop 05/09/20 at 09:06; Status DC Nystatin (Nystop) 1 jackie BID TP Last administered on 06/03/20at 08:51; Start 05/08/20 at 10:00 Nystatin (Nystop) 1 jackie BID TP ; Start 05/08/20 at 21:00; Status UNV Insulin Glargine (Lantus Syringe) 60 unit DAILY SQ Last administered on 05/12/20at 09:08; Start 05/10/20 at 09:00; Stop 05/13/20 at 08:25; Status DC Simethicone (Gas-X) 80 mg PRN AFTMEALHC PRN PO GAS / BLOATING, 1ST CHOICE Last administered on 06/01/20at 08:55; Start 05/10/20 at 15:30 Magnesium Sulfate 50 ml @ 25 mls/hr PRN DAILY PRN IV for Mag < 1.7 on am labs; Start 05/11/20 at 14:15 Insulin Glargine (Lantus Syringe) 70 unit DAILY SQ Last administered on 05/16/20at 08:26; Start 05/13/20 at 08:30; Stop 05/16/20 at 08:37; Status DC Polyethylene Glycol (miraLAX PACKET) 34 gm PRN BID PRN PO CONSTIPATION Last administered on 05/26/20at 08:25; Start 05/13/20 at 18:00 Temazepam (Restoril) 15 mg PRN QHS PRN PO INSOMNIA Last administered on 05/29/20at 23:03; Start 05/13/20 at 18:00 Insulin Glargine (Lantus Syringe) 75 unit DAILY SQ Last administered on at 08:39; Start 05/17/20 at 09:00; Stop 05/23/20 at 09:03; Status DC Loperamide HCl (Imodium) 4 mg PRN TID PRN PO DIARRHEA Last administered on 05/22/20at 07:58; Start 05/17/20 at 22:30 Sodium Chloride 1,000 ml @ 75 mls/hr [id number] ONCE IV Last administered on 05/18/20at 11:22; Start 05/18/20 at 11:15; Stop 05/19/20 at 00:34; Status DC Heparin Sodium (Porcine) (Heparin Sodium) 5,000 unit Q12HR SQ Last administered on 06/03/20at 08:46; Start 05/19/20 at 09:00 Dicyclomine HCl (Bentyl) 10 mg PRN TID PRN PO GAS / BLOATING Last administered on 06/02/20at 09:13; Start 05/18/20 at 22:15 Lorazepam (Ativan) 1 mg PRN Q8HRS PRN PO ANXIETY / AGITATION Last administered on 05/28/20at 09:26; Start 05/18/20 at 22:15 Dexmedetomidine HCl 400 mcg/ Sodium Chloride 100 ml @ 6.99 mls/hr CONT PRN IV PER PROTOCOL Last administered on 05/21/20at 10:38; Start 05/19/20 at 09:45; Stop 05/21/20 at 16:18; Status DC Sodium Chloride 500 ml @ 500 mls/hr 1X PRN PRN IV SEE COMMENTS; Start 05/19/20 at 09:45; Stop 05/21/20 at 16:18; Status DC Atropine Sulfate (ATROPINE 0.5mg SYRINGE) 0.5 mg PRN Q5MIN PRN IV SEE COMMENTS; Start 05/19/20 at 09:45; Stop 05/21/20 at 16:18; Status DC Sodium Bicarbonate (Sodium Bicarb Adult 8.4% Syr) 50 meq 1X ONCE IV Last administered on 05/19/20at 16:51; Start 05/19/20 at 16:30; Stop 05/19/20 at 16:34; Status DC Lidocaine HCl (Buffered Lidocaine 1%) 3 ml STK-MED ONCE .ROUTE ; Start 05/20/20 at 10:52; Stop 05/20/20 at 10:52; Status DC Heparin Sodium (Porcine) (Heparin Sodium) 10,000 unit STK-MED ONCE .ROUTE ; Start 05/20/20 at 10:52; Stop 05/20/20 at 10:52; Status DC Lidocaine HCl (Buffered Lidocaine 1%) 6 ml 1X ONCE INJ Last administered on 05/20/20at 11:22; Start 05/20/20 at 11:00; Stop 05/20/20 at 11:01; Status DC Heparin Sodium (Porcine) (Heparin Sodium) 2,500 unit 1X ONCE INT CAT Last administered on 05/20/20at 11:26; Start 05/20/20 at 11:00; Stop 05/20/20 at 11:01; Status DC Sodium Chloride 1,000 ml @ 1,000 mls/hr Q1H PRN IV hypotension; Start 05/20/20 at 13:00; Stop 05/20/20 at 18:59; Status DC Albumin Human 200 ml @ 200 mls/hr 1X PRN PRN IV Hypotension Last administered on 05/20/20at 13:48; Start 05/20/20 at 13:00; Stop 05/20/20 at 18:59; Status DC Sodium Chloride 1,000 ml @ 400 mls/hr Q2H30M PRN IV PATENCY; Start 05/20/20 at 13:00; Stop 05/21/20 at 00:59; Status DC Info (PHARMACY MONITORING -- do not chart) 1 each PRN DAILY PRN MC SEE COMMENTS; Start 05/20/20 at 13:00; Status Cancel Sodium Chloride 1,000 ml @ 1,000 mls/hr Q1H PRN IV hypotension; Start 05/21/20 at 07:45; Stop 05/21/20 at 13:44; Status DC Albumin Human 200 ml @ 200 mls/hr 1X PRN PRN IV Hypotension; Start 05/21/20 at 07:45; Stop 05/21/20 at 13:44; Status DC Sodium Chloride 1,000 ml @ 400 mls/hr Q2H30M PRN IV PATENCY; Start 05/21/20 at 07:45; Stop 05/21/20 at 19:44; Status DC Info (PHARMACY MONITORING -- do not chart) 1 each PRN DAILY PRN MC SEE COMMENTS; Start 05/21/20 at 07:45; Status UNV Info (PHARMACY MONITORING -- do not chart) 1 each PRN DAILY PRN MC SEE COMMENTS; Start 05/21/20 at 07:45; Status Cancel Sodium Chloride 1,000 ml @ 1,000 mls/hr Q1H PRN IV hypotension; Start 05/22/20 at 08:00; Stop 05/22/20 at 13:59; Status DC Albumin Human 200 ml @ 200 mls/hr 1X PRN PRN IV Hypotension Last administered on 05/22/20at 09:13; Start 05/22/20 at 08:00; Stop 05/22/20 at 13:59; Status DC Sodium Chloride (Normal Saline Flush) 10 ml 1X PRN PRN IV AP catheter pack; Start 05/22/20 at 08:00; Stop 05/23/20 at 07:59; Status DC Sodium Chloride (Normal Saline Flush) 10 ml 1X PRN PRN IV AUDITOR TAX catheter pack; Start 05/22/20 at 08:00; Stop 05/23/20 at 07:59; Status DC Sodium Chloride 1,000 ml @ 400 mls/hr Q2H30M PRN IV PATENCY; Start 05/22/20 at 08:00; Stop 05/22/20 at 19:59; Status DC Info (PHARMACY MONITORING -- do not chart) 1 each PRN DAILY PRN MC SEE COMMENTS; Start 05/22/20 at 08:00; Status UNV Info (PHARMACY MONITORING -- do not chart) 1 each PRN DAILY PRN MC SEE COMMENTS; Start 05/22/20 at 08:00; Status Cancel Sodium Chloride 1,000 ml @ 1,000 mls/hr Q1H PRN IV hypotension; Start 05/23/20 at 07:45; Stop 05/23/20 at 13:44; Status DC Albumin Human 200 ml @ 200 mls/hr 1X PRN PRN IV Hypotension; Start 05/23/20 at 07:45; Stop 05/23/20 at 13:44; Status DC Sodium Chloride 1,000 ml @ 400 mls/hr Q2H30M PRN IV PATENCY; Start 05/23/20 at 07:45; Stop 05/23/20 at 19:44; Status DC Info (PHARMACY MONITORING -- do not chart) 1 each PRN DAILY PRN MC SEE COMMENTS; Start 05/23/20 at 07:45; Status UNV Info (PHARMACY MONITORING -- do not chart) 1 each PRN DAILY PRN MC SEE COMMENTS; Start 05/23/20 at 07:45; Status Cancel Insulin Glargine (Lantus Syringe) 50 unit DAILY SQ Last administered on 05/26/20at 09:08; Start 05/23/20 at 10:00; Stop 05/27/20 at 08:29; Status DC Amino Acids/ Glycerin/ Electrolytes 1,000 ml @ 80 mls/hr [id number] IV Last administered on 05/30/20at 01:25; Start 05/23/20 at 11:45; Stop 05/30/20 at 09:21; Status DC Sodium Chloride 1,000 ml @ 1,000 mls/hr Q1H PRN IV hypotension; Start 05/24/20 at 08:00; Stop 05/24/20 at 13:59; Status DC Albumin Human 200 ml @ 200 mls/hr 1X PRN PRN IV Hypotension; Start 05/24/20 at 08:00; Stop 05/24/20 at 13:59; Status DC Sodium Chloride (Normal Saline Flush) 10 ml 1X PRN PRN IV AP catheter pack; Start 05/24/20 at 08:00; Stop 05/25/20 at 07:59; Status DC Sodium Chloride (Normal Saline Flush) 10 ml 1X PRN PRN IV AUDITOR TAX catheter pack; Start 05/24/20 at 08:00; Stop 05/25/20 at 07:59; Status DC Sodium Chloride 1,000 ml @ 400 mls/hr Q2H30M PRN IV PATENCY; Start 05/24/20 at 08:00; Stop 05/24/20 at 19:59; Status DC Info (PHARMACY MONITORING -- do not chart) 1 each PRN DAILY PRN MC SEE CO MMENTS; Start 05/24/20 at 08:00; Status UNV Info (PHARMACY MONITORING -- do not chart) 1 each PRN DAILY PRN MC SEE COMMENTS; Start 05/24/20 at 08:00; Stop 05/28/20 at 10:33; Status DC Fluconazole (Diflucan) 200 mg DAILY08 PO Last administered on 06/01/20at 08:54; Start 05/26/20 at 12:00; Stop 06/01/20 at 08:01; Status DC Bisacodyl (Dulcolax Supp) 10 mg PRN DAILY PRN ND CONSTIPATION Last administered on 05/26/20at 17:55; Start 05/26/20 at 17:45 Insulin Glargine (Lantus Syringe) 60 unit DAILY SQ Last administered on 05/27/20at 09:36; Start 05/27/20 at 09:00; Stop 05/28/20 at 08:38; Status DC Sodium Chloride 1,000 ml @ 1,000 mls/hr Q1H PRN IV hypotension; Start 05/27/20 at 11:00; Stop 05/27/20 at 16:59; Status DC Albumin Human 200 ml @ 200 mls/hr 1X PRN PRN IV Hypotension; Start 05/27/20 at 11:00; Stop 05/27/20 at 16:59; Status DC Info (PHARMACY MONITORING -- do not chart) 1 each PRN DAILY PRN MC SEE COMMENTS; Start 05/27/20 at 11:00; Stop 05/29/20 at 16:27; Status DC Insulin Glargine (Lantus Syringe) 65 unit DAILY SQ Last administered on 06/03/20at 08:47; Start 05/28/20 at 09:00 Insulin Human Lispro (HumaLOG) 10 units PRN BFRMEALHC PRN SQ Blood glucose > 200 mg/dL Last administered on 05/29/20at 12:27; Start 05/28/20 at 08:45 Gabapentin (Neurontin) 400 mg QHS PO Last administered on 06/02/20at 21:18; Start 05/29/20 at 21:00 Darbepoetin Deepak (ARANESP for DIALYSIS PTS) 60 mcg WEEKLYHS SQ Last administered on 05/29/20at 20:14; Start 05/29/20 at 21:00 Sodium Chloride 1,000 ml @ 1,000 mls/hr Q1H PRN IV hypotension; Start 05/29/20 at 10:45; Stop 05/29/20 at 16:44; Status DC Albumin Human 200 ml @ 200 mls/hr 1X PRN PRN IV Hypotension; Start 05/29/20 at 10:45; Stop 05/29/20 at 16:44; Status DC Sodium Chloride 1,000 ml @ 400 mls/hr Q2H30M PRN IV PATENCY; Start 05/29/20 at 10:45; Stop 05/29/20 at 22:44; Status DC Info (PHARMACY MONITORING -- do not chart) 1 each PRN DAILY PRN MC SEE COMMENTS; Start 05/29/20 at 10:45; Stop 05/29/20 at 16:27; Status DC Info (PHARMACY MONITORING -- do not chart) 1 each PRN DAILY PRN MC SEE COMMENTS; Start 05/29/20 at 10:45; Stop 06/02/20 at 08:44; Status DC Diphenhydramine HCl (Benadryl) 25 mg PRN TID PRN PO ITCHING Last administered on 06/01/20at 20:30; Start 05/30/20 at 14:30 Duloxetine HCl (Cymbalta) 30 mg DAILY08 PO Last administered on 06/03/20at 08:43; Start 05/31/20 at 09:00 Info (PHARMACY MONITORING -- do not chart) 1 each PRN DAILY PRN MC SEE COMMENTS; Start 05/31/20 at 12:30 Miconazole Nitrate (Monistat-Derm) 1 jackie BID TP Last administered on 06/03/20at 08:51; Start 06/01/20 at 16:00 Magnesium Sulfate 50 ml @ 25 mls/hr PRN DAILY PRN IV for Mag < 1.7 on am labs; Start 06/02/20 at 08:45; Stop 06/02/20 at 08:45; Status DC Active Scripts Active Reported Renagel (Sevelamer Hcl) 800 Mg Tablet 2 Tab PO TID 30 Days Kelly-Jalen Rx Tablet (Vit B Cmplx 3/Fa/Vit C/Biotin) 1 Each Tablet 1 Tab PO DAILY MDD 1 Aspirin 81 Mg Tab.chew 1 Tab PO DAILY Coreg (Carvedilol) 25 Mg Tablet 25 Mg PO BIDWMEALS Vitamin C (Ascorbic Acid) 500 Mg Capsule.er 1,000 Mg PO DAILY08 D3-50 (Cholecalciferol (Vitamin D3)) 50,000 Unit Capsule 10,000 Unit PO DAILY08 Metolazone 5 Mg Tablet 5 Mg PO DAILY Gabapentin 600 Mg Tablet 600 Mg PO HS Gabapentin (Gabapentin) 300 Mg Capsule 300 Mg PO DAILY Lantus Solostar (Insulin Glargine,Hum.rec.anlog) 100 Unit/1 Ml Insuln.pen 75 Unit SQ BID Januvia (Sitagliptin Phosphate) 25 Mg Tablet 25 Mg PO DAILY Novolog (Insulin Aspart) 100 Unit/1 Ml Cartridge 0 SQ TIDAC Sliding scale; patient has printout (at home) of scale. Unknown at this time. Singulair Tablet (Montelukast Sodium) 10 Mg Tablet 10 Mg PO HS Atorvastatin Calcium 40 Mg Tablet 1 Tab PO QHS Torsemide 20 Mg Tablet 2 Tab PO BID Cymbalta (Duloxetine Hcl) 30 Mg Capsule.dr 1 Cap PO BID Daily Jalen (Multivitamin) 1 Each Tablet 1 Each PO DAILY Vitals/I & O Vital Sign - Last 24 Hours 06/02/20 06/02/20 06/02/20 06/02/20 15:00 17:21 19:40 20:00 Temp 98.8 99.5 98.8 99.5 Pulse 90 90 93 Resp 16 20 B/P (MAP) 141/63 (89) 141/63 143/57 (85) Pulse Ox 97 96 O2 Delivery Nasal Cannula High Flow Nasal Cannula Nasal Cannula O2 Flow Rate 7.0 10.0 7.0 06/02/20 06/02/20 06/03/20 06/03/20 20:00 22:40 03:40 07:00 Temp 99.0 98.5 99.4 99.0 98.5 99.4 Pulse 93 78 88 Resp 22 22 20 B/P (MAP) 132/61 (84) 119/65 (83) 166/74 (104) Pulse Ox 94 100 100 O2 Delivery Nasal Cannula High Flow Nasal Cannula High Flow Nasal Cannula O2 Flow Rate 10.0 9.0 9.0 9.0 06/03/20 06/03/20 08:43 11:00 Temp 99.0 99.0 Pulse 90 89 Resp 21 B/P (MAP) 166/74 160/59 (92) Pulse Ox 100 O2 Delivery High Flow Nasal Cannula O2 Flow Rate 9.0 Intake and Output 06/02/20 06/02/20 06/03/20 15:00 23:00 07:00 Intake Total 100 ml Output Total 200 ml Balance -200 ml 100 ml Justicifation of Admission Dx: Justifications for Admission: Justification of Admission Dx: N/A SHANA CHAUDHARI MD Jun 03, 2020 11:40
--- NOTE | 2020-06-03 12:22 | PDOC ---
Renal-Progress Notes Subjective Notes Notes AWAKE ALERT AND ORIENTED History of Present Illness Hx of present illness IMPROVED Vitals Vitals Vital Signs Date Time Temp Pulse Resp B/P (MAP) Pulse Ox O2 Delivery O2 Flow Rate FiO2 06/03/20 11:00 99.0 89 21 160/59 (92) 100 High Flow Nasal Cannula 9.0 99.0 Weight Weight [ ] I.O. Intake and Output Intake and Output 06/03/20 07:00 Intake Total 100 ml Output Total 200 ml Balance -100 ml Intake Oral 100 ml Output Urine Total 200 ml # Voids 2 # Bowel Movements 2 Labs Labs Laboratory Tests Test 06/02/20 16:50 06/02/20 21:15 06/03/20 04:30 06/03/20 08:03 Glucose (Fingerstick) 190 mg/dL (70-99) 143 mg/dL (70-99) 165 mg/dL (70-99) Hemoglobin 8.1 g/dL (12.0-15.5) Sodium Level 132 mmol/L (136-145) Potassium Level 4.9 mmol/L (3.5-5.1) Chloride Level 97 mmol/L (98-107) Carbon Dioxide Level 30 mmol/L (21-32) Anion Gap 5 (6-14) Blood Urea Nitrogen 47 mg/dL (7-20) Creatinine 4.4 mg/dL (0.6-1.0) Estimated GFR (Cockcroft-Gault) 10.4 Glucose Level 97 mg/dL (70-99) Calcium Level 9.5 mg/dL (8.5-10.1) Phosphorus Level 3.6 mg/dL (2.6-4.7) Magnesium Level 3.0 mg/dL (1.8-2.4) Albumin 2.7 g/dL (3.4-5.0) Micro Micro Microbiology 06/01/20 Urine Culture - Preliminary, Resulted 04/26/20 Blood Culture - Final, Complete NO GROWTH AFTER 5 DAYS Review of Systems Constitutional: yes: weakness Ears/Nose/Throat: Yes: no symptom reported Eyes: Yes: no symptom reported Pulmonary: Yes dyspnea Cardiovascular: Yes no symptom reported Genitourinary: Yes: no symptom reported Skin: Yes no symptom reported Psychiatric/Neurological: Yes: no symptom reported Endocrine: Yes: no symptom reported Physical Exam General Appearance: no apparent distress Skin: warm Respiratory: decreased breath sounds Heart: S1S2 Abdomen: soft Genitourinary: bladder flat Extremities: pulses present Neurology: alert, oriented Musculoskeletal: low back pain (Degenerative disc disease), Osteoarthritis Assessment Assessment IMP ESRD ACUTE RESP FAILURE ANEMIA COVID 19 DM II MORBID OBESITY FATIGUE ENCEPHALOPATHY PLAN HD TODAY UF TO DW WILL HAVE HER CONT HD TILL STRENGTH IMPROVES WILL NEED TO HAVE TEMP LINE CONVERTED TO TUNNELED LINE CONT WITH THERAPY WILL FOLLOW CARTER PEREZ MD Jun 03, 2020 12:22
--- NOTE | 2020-06-03 13:02 | NUR ---
KANDY following. Discussed with RN, pt's oxygen needs have dropped to 7L. KANDY spoke with Shy at [facility] regarding their policy on accepting COVID recovered patients. [facility] can accept COVID recovered if a physician note stating they are COVID recovered and not showing signs and symptoms, and are 10 days out from their positive test. KANDY not seeing a COVID result in pt chart. KANYD spoke with RN, determined pt was tested at Dr. Andersen's office. RN swabbing pt for COVID again in case KANDY unable to obtain pt's first positive COVID result. KANDY spoke with Patty at Dr. Andersen's office - pt was tested on April 23 but she was not seeing the result. Patty is going to call their lab and will call KANDY back. KANDY will continue to follow.
[2020-06-03 16:00] VITALS: BP 119/69
[2020-06-03 19:54] VITALS: BP 101/46
[2020-06-03] MEDS: HYDROcodone/APAP 5/325MG 1 TAB TABLET PO PRN (21:19)
[2020-06-03] MEDS: TEMAZEPAM 15 MG CAPSULE PO PRN (21:19)
[2020-06-03] MEDS: GABAPENTIN 400 MG CAPSULE. PO SCH (21:19)
[2020-06-03 23:10] VITALS: BP 112/46
[2020-06-04] VITALS (7 sets, daily range): BP systolic 120–150; BP diastolic 49–72
[2020-06-04] MEDS: diphenhydrAMINE HCL 25 MG CAPSULE PO PRN ×2 (02:33→22:34)
[2020-06-04 06:38] LABS: ALBUMIN 2.9 g/dL (3.4-5.0); CALCIUM 9.2 mg/dL (8.5-10.1); CREATININE 3.5 mg/dL (0.6-1.0); GFR 13.5; PHOSPHORUS 3.7 mg/dL (2.6-4.7)
[2020-06-04] MEDS: CARVEDILOL 12.5 MG TABLET. PO SCH ×2 (08:00→17:49)
[2020-06-04] MEDS: SEVELAMER CARBONATE 800 MG TABLET. PO SCH ×3 (08:00→17:48)
[2020-06-04 08:07] LABS: PROTHROMBIN TIME PATIENT 12.4 SEC (11.7-14.0)
--- NOTE | 2020-06-04 08:46 | PDOC ---
Provider Note Date of Service: DATE: 06/04/20 TIME: 08:45 Provider Note sleeping, no dyspnea- labs better , no new probs- dc planning in progress, meds same Justifications for Admission Other Justification VERNA GARCIA MD Jun 04, 2020 08:46
[2020-06-04] MEDS: INSULIN GLARGINE SYRINGE. SQ SCH (09:00)
[2020-06-04] MEDS: NYSTATIN TOPICAL POWDER 15GM BOTTLE. TP SCH ×2 (09:00→22:35)
--- NOTE | 2020-06-04 12:00 | PDOC ---
Renal-Progress Notes Subjective Notes Notes NO NEW COMPLAINTS History of Present Illness Hx of present illness TIRED Vitals Vitals Vital Signs Date Time Temp Pulse Resp B/P (MAP) Pulse Ox O2 Delivery O2 Flow Rate FiO2 06/04/20 07:00 98.6 84 21 133/64 (87) 94 High Flow Nasal Cannula 7.0 98.6 Weight Weight [ ] I.O. Intake and Output Intake and Output 06/04/20 07:00 Intake Total 1337 ml Balance 1337 ml Intake Oral 1337 ml Labs Labs Laboratory Tests Test 06/03/20 17:03 06/03/20 20:45 06/04/20 05:20 06/04/20 07:43 Glucose (Fingerstick) 141 mg/dL (70-99) 209 mg/dL (70-99) 145 mg/dL (70-99) Prothrombin Time 12.4 SEC (11.7-14.0) Prothromb Time International Ratio 1.0 (0.8-1.1) Sodium Level 134 mmol/L (136-145) Potassium Level 5.0 mmol/L (3.5-5.1) Chloride Level 98 mmol/L (98-107) Carbon Dioxide Level 31 mmol/L (21-32) Anion Gap 5 (6-14) Blood Urea Nitrogen 31 mg/dL (7-20) Creatinine 3.5 mg/dL (0.6-1.0) Estimated GFR (Cockcroft-Gault) 13.5 Glucose Level 147 mg/dL (70-99) Calcium Level 9.2 mg/dL (8.5-10.1) Phosphorus Level 3.7 mg/dL (2.6-4.7) Magnesium Level 2.7 mg/dL (1.8-2.4) Albumin 2.9 g/dL (3.4-5.0) Test 06/04/20 10:51 Glucose (Fingerstick) 113 mg/dL (70-99) Micro Micro Microbiology 06/01/20 Urine Culture - Final, Complete 06/01/20 Antimicrobic Susceptibility - Final, Complete 04/26/20 Blood Culture - Final, Complete NO GROWTH AFTER 5 DAYS Review of Systems Constitutional: yes: weakness Ears/Nose/Throat: Yes: no symptom reported Eyes: Yes: no symptom reported Pulmonary: Yes dyspnea Cardiovascular: Yes no symptom reported Genitourinary: Yes: no symptom reported Skin: Yes no symptom reported Psychiatric/Neurological: Yes: no symptom reported Endocrine: Yes: no symptom reported Physical Exam General Appearance: no apparent distress Skin: warm Respiratory: decreased breath sounds Heart: S1S2 Abdomen: soft Genitourinary: bladder flat Extremities: pulses present Neurology: alert, oriented Musculoskeletal: low back pain (Degenerative disc disease), Osteoarthritis Assessment Assessment IMP ESRD ACUTE RESP FAILURE ANEMIA COVID 19 DM II MORBID OBESITY FATIGUE ENCEPHALOPATHY-RESOLVED SEVERE DECONDITIONING PLAN HD TOMORROW TUNNELED CATHETER TODAY CONT WITH THERAPY TO [facility] BED IS AVAILABLE WILL FOLLOW CARTER PEREZ MD Jun 04, 2020 12:00
[2020-06-04] MEDS ORDERED: LIDOCAINE 2%/EPI 1:100,000 20 ML VIAL. ONE (12:02)
[2020-06-04] MEDS ORDERED: fentaNYL PF VIAL 100 MCG/2 ML VIAL ONE (12:27)
[2020-06-04] MEDS ORDERED: MIDAZOLAM HCL/PF 2 MG/2 ML VIAL. ONE (12:27)
[2020-06-04] MEDS ORDERED: LIDOCAINE 2%/EPI 1:100,000 20 ML VIAL. INJ ONE (12:30)
[2020-06-04] MEDS ORDERED: MIDAZOLAM HCL/PF 2 MG/2 ML VIAL. IV ONE (13:00)
[2020-06-04] MEDS ORDERED: fentaNYL PF VIAL 100 MCG/2 ML VIAL IV ONE (13:00)
--- NOTE | 2020-06-04 13:18 | NUR ---
SS following up with discharge planning. SS reviewed pt chart and discussed with pt RN. Pt is currently requiring oxygen at seven liters nasal canula. COVID19 recovered. Tunneled catheter being placed today. Hemodialysis tomorrow. Pt accepted at [facility], ; fax [phone]. [facility] overturned denial and pt now has insurance authorization to go to [facility]. SS currently awaiting bed at [facility]. SS will continue to follow for discharge planning.
--- NOTE | 2020-06-04 13:25 | RAD ---
Conversion of right internal jugular temporary dialysis catheter to a tunneled hemodialysis catheter Indication: Longer term dialysis access needed Procedure: The procedure was explained in its entirety to the patient or the patients designated energy conservation representative by a member of the treatment team, including a discussion of the risks, benefits and commonly accepted alternatives to the procedure, as well as the expected consequences of no therapy whatsoever. Discussion of the risks included, but was not limited to, those that are most frequent and those that are rare but possibly severe or life-threatening, as well as the possibility of unforeseen complications. All elements of maximal sterile barrier technique including the use of a cap, mask, sterile gown, sterile gloves, large sterile sheet, appropriate hand hygiene, and 2% chlorhexidine for cutaneous antisepsis (or acceptable alternative antiseptic per current guidelines) were followed for this procedure. The pre-existing catheter was evaluated under fluoroscopy and found to be normal in position. A guidewire was advanced into the IVC. A 23 cm tip to cuff tunneled hemodialysis catheter was advanced from small dermatotomy, several centimeters inferior to the pre-existing catheter entry site, to the venotomy site. The pre-existing catheter was removed over the guidewire and a peel-away sheath placed. The new tunneled catheter was advanced through the peel-away sheath such that its tip was positioned in the proximal right atrium with the patient supine. The sheath was removed. The new catheter was found to flush and aspirate normally. Catheter was flushed, and secured in place. Sterile dressings were applied. No immediate complications were identified. Total fluoroscopy time: 0.6 min Dose area product: 6 Gycm2 The procedure was performed under conscious sedation including continuous cardiopulmonary monitoring via dedicated sedation nurse. [id number] sedation time: 26 minutes Impression: Conversion of a right internal jugular temporary dialysis catheter to a tunneled dialysis catheter
[2020-06-04] MEDS: MULTIVITAMIN with MINERAL TABLET. PO SCH (14:11)
[2020-06-04] MEDS: PANTOPRAZOLE 40 MG TABLET.DR. PO SCH (14:11)
[2020-06-04] MEDS: FOLIC/VIT B COMP W-C (RENAL) TABLET. PO SCH (14:11)
[2020-06-04] MEDS: DULoxetine HCL 30 MG CAPSULE.DR PO SCH (14:11)
[2020-06-04] MEDS: ZINC SULFATE 220 MG CAPSULE. PO SCH (14:11)
[2020-06-04] MEDS: LACTOBACILLUS RHAMNOSUS GG 1 CAPSULE. PO SCH ×2 (14:11→22:34)
[2020-06-04] MEDS: LINAGLIPTIN 5 MG TABLET PO SCH (14:11)
[2020-06-04] MEDS: MICONAZOLE NITRATE 2% TOPICAL CREAM 30GM TUBE. TP SCH ×2 (14:12→22:36)
[2020-06-04] MEDS: HEPARIN for SUB-Q USE 5,000 UNIT/ML VIAL. SQ SCH ×2 (14:20→22:40)
[2020-06-04] MEDS: HYDROcodone/APAP 5/325MG 1 TAB TABLET PO PRN ×2 (17:59→22:44)
[2020-06-04] MEDS: CYCLOBENZAPRINE 10 MG TABLET. PO PRN (22:34)
[2020-06-04] MEDS: GABAPENTIN 400 MG CAPSULE. PO SCH (22:34)
[2020-06-04] MEDS: TEMAZEPAM 15 MG CAPSULE PO PRN (22:34)
[2020-06-05 03:30] VITALS: BP 126/59
[2020-06-05 06:06] LABS: ALBUMIN 2.8 g/dL (3.4-5.0); CALCIUM 9.5 mg/dL (8.5-10.1); CREATININE 4.7 mg/dL (0.6-1.0); GFR 9.6; MAGNESIUM 2.8 mg/dL (1.8-2.4); PHOSPHORUS 4.4 mg/dL (2.6-4.7); POTASSIUM 5.2 mmol/L (3.5-5.1)
[2020-06-05 07:00] VITALS: BP 140/60
[2020-06-05] MEDS: NYSTATIN TOPICAL POWDER 15GM BOTTLE. TP SCH (07:59)
[2020-06-05] MEDS: MICONAZOLE NITRATE 2% TOPICAL CREAM 30GM TUBE. TP SCH (07:59)
[2020-06-05] MEDS: SEVELAMER CARBONATE 800 MG TABLET. PO SCH ×2 (08:00→12:36)
[2020-06-05] MEDS: HEPARIN for SUB-Q USE 5,000 UNIT/ML VIAL. SQ SCH (08:06)
[2020-06-05] MEDS ORDERED: DIALYSIS PATIENT. MC PRN ×2 (08:15)
[2020-06-05] MEDS ORDERED: ALBUMIN HUMAN 25% 200 ML IV PRN (08:15)
[2020-06-05] MEDS ORDERED: IV NORMAL SALINE 1000ML BAG 1,000 ML IV PRN ×2 (08:15)
[2020-06-05] MEDS ORDERED: 0.9 % SODIUM CHLORIDE 10 ML DISP.SYRIN. IV PRN ×2 (08:15)
--- NOTE | 2020-06-05 08:56 | PDOC ---
Provider Note Date of Service: DATE: 06/05/20 TIME: 08:55 Provider Note stable, getting tunneled cath today, may be going to [facility] Justifications for Admission Other Justification VERNA GARCIA MD Jun 05, 2020 08:56
--- NOTE | 2020-06-05 09:16 | PDOC ---
Provider Note Date of Service: DATE: 06/05/20 TIME: 09:15 Provider Note [id number] Justifications for Admission Other Justification VERNA GARCIA MD Jun 05, 2020 09:16
--- NOTE | 2020-06-05 09:18 | SNU/HH DC ---
DISCHARGE ORDERS DISCHARGE INFORMATION: FINAL DIAGNOSIS Problems Medical Problems: (1) CAP (community acquired pneumonia) Status: Acute (2) COVID-19 Status: Acute CONDITION ON DISCHARGE: Stable CODE STATUS: Code Status: Full DETENTION: SNF STAY <30 DAYS: Yes POST DISCHARGE ORDERS: ACTIVITY ORDERS: Activity as tolerated WEIGHT BEARING STATUS: Partial weight bearing DIET AFTER DISCHARGE: Renal WOUND/INCISION CARE: No wound care needed CHECKS AFTER DISCHARGE: CHECKS AFTER DISCHARGE: Check blood press - daily, Check blood sugar, ac/hs DISCHARGE MEDICATIONS: Home Meds Reported Medications Sevelamer Hcl (RENAGEL) 800 Mg Tablet, 2 TAB PO TID for phos binder for 30 Days, #180 TAB 0 Refills 05/02/20 Vit B Cmplx 3/Fa/Vit C/Biotin (HEMANT-SHELBI RX TABLET) 1 Each Tablet, 1 TAB PO DAILY for phos binder MDD 1 04/29/20 Aspirin (ASPIRIN) 81 Mg Tab.chew, 1 TAB PO DAILY for blood thinner, #30 TAB 3 Refills 04/29/20 Carvedilol (COREG) 25 Mg Tablet, 25 MG PO BIDWMEALS for CARDIAC, TAB 04/29/20 Ascorbic Acid (VITAMIN C) 500 Mg Capsule.er, 1000 MG PO DAILY08 for vit, CAP.SR 04/29/20 Cholecalciferol (Vitamin D3) (D3-50) 50,000 Unit Capsule, 25105 UNIT PO DAILY08 for supp, CAP 04/29/20 Metolazone (METOLAZONE) 5 Mg Tablet, 5 MG PO DAILY for blood pressure, #30 TAB 0 Refills 04/29/20 Gabapentin (GABAPENTIN) 600 Mg Tablet, 600 MG PO HS for NEUROGENIC PAIN, TAB 04/27/20 Gabapentin (GABAPENTIN ) 300 Mg Capsule, 300 MG PO DAILY for NEUROGENIC PAIN, CAP 04/27/20 Insulin Glargine,Hum.rec.anlog (LANTUS SOLOSTAR) 100 Unit/1 Ml Insuln.pen, 75 UNIT SQ BID for diabetes, SYR 09/19/19 Sitagliptin Phosphate (JANUVIA) 25 Mg Tablet, 25 MG PO DAILY for diabetes, TAB 09/19/19 Insulin Aspart (NOVOLOG) 100 Unit/1 Ml Cartridge, 0 SQ TIDAC for diabetes, EACH Sliding scale; patient has printout (at home) of scale. Unknown at this time. 01/26/19 Montelukast Sodium (SINGULAIR TABLET ) 10 Mg Tablet, 10 MG PO HS for FOR ASTHMA, TAB 0 Refills 11/24/18 Atorvastatin Calcium (ATORVASTATIN CALCIUM) 40 Mg Tablet, 1 TAB PO QHS for cholesterol, #90 TAB 3 Refills 11/24/18 Torsemide (TORSEMIDE) 20 Mg Tablet, 2 TAB PO BID for diuretic, #90 TAB 1 Refill 11/24/18 Duloxetine Hcl (CYMBALTA) 30 Mg Capsule.dr, 1 CAP PO BID for mood, #30 CAP 5 Refills 11/24/18 Multivitamin (DAILY SHELBI) 1 Each Tablet, 1 EACH PO DAILY for supp, TAB 11/24/18 VERNA GARCIA MD Jun 05, 2020 09:18
--- NOTE | 2020-06-05 09:28 | DS ---
DATE OF DISCHARGE: 06/05/2020 HOSPITAL SUMMARY: A 55-year-old white female admitted with COVID pneumonia, which rapidly progressed to requiring 100% oxygen and intubation. She was on vent for a period of time. We will wean off to 100% oxygen, which she required throughout the hospital stay. She is a known dialysis patient, does peritoneal dialysis at home and has been started hemodialysis while in the hospital and a tunneled catheter was placed just prior to her dismissal to [facility]. All labs are available in the chart, will not be redictated here. However, the hyponatremia resolved after she got off a procalamine and she still has mild anemia, but is generally stable. FINAL DIAGNOSES: 1. COVID pneumonia with severe hypoxia. 2. Anemia of chronic disease. 3. Chronic chronic kidney disease 5, on dialysis. 4. Hyponatremia, resolved. OPERATIONS AND PROCEDURES: Hemodialysis, catheter placement; tunneled dialysis, catheter placement; intubation, mechanical ventilation. COMPLICATIONS: None. CONSULTATIONS: Dr. Santo, Dr. Waggoner, Dr. Velazquez of Infectious Disease. DISPOSITION: Meds remain the same as per the chart at this time. She is on the hemodialysis schedule, will be followed at [facility] and her prognosis is guarded. VERNA GARCIA MD DR: GEMA/nts JOB#: [id number] / [id number]
--- NOTE | 2020-06-05 10:41 | NUR ---
SS following up with discharge planning. SS reviewed pt chart and discussed with pt RN. Pt is currently requiring oxygen at seven liters nasal canula. COVID19 recovered. Pt currently in dialysis. Pt scheduled for dialysis on Wednesday, Wednesday, and Wednesday. Insurance authorization received for [facility]. Bed available. Pt will discharge today and go to [facility], ; fax [phone], at 1500 via [facility], . Pt, pt's RN, and pt's daughter, Ximena, , notified. Addendum: 06/05/20 at 1045 by LEON SILVESTRE Discharge orders received and phoned and faxed to [facility].
[2020-06-05 12:36] VITALS: BP 140/60
[2020-06-05] MEDS: FOLIC/VIT B COMP W-C (RENAL) TABLET. PO SCH (12:36)
[2020-06-05] MEDS: PANTOPRAZOLE 40 MG TABLET.DR. PO SCH (12:36)
[2020-06-05] MEDS: MULTIVITAMIN with MINERAL TABLET. PO SCH (12:36)
[2020-06-05] MEDS: LACTOBACILLUS RHAMNOSUS GG 1 CAPSULE. PO SCH (12:36)
[2020-06-05] MEDS: CARVEDILOL 12.5 MG TABLET. PO SCH (12:36)
[2020-06-05] MEDS: DULoxetine HCL 30 MG CAPSULE.DR PO SCH (12:36)
[2020-06-05] MEDS: LINAGLIPTIN 5 MG TABLET PO SCH (12:36)
[2020-06-05] MEDS: ZINC SULFATE 220 MG CAPSULE. PO SCH (12:36)
[2020-06-05] MEDS: INSULIN GLARGINE SYRINGE. SQ SCH (12:51)
--- NOTE | 2020-06-05 13:01 | PDOC ---
Renal-Progress Notes Subjective Notes Notes NO NEW COMPLAINTS History of Present Illness Hx of present illness STABLE Vitals Vitals Vital Signs Date Time Temp Pulse Resp B/P (MAP) Pulse Ox O2 Delivery O2 Flow Rate FiO2 06/05/20 12:36 79 140/60 06/05/20 08:00 Nasal Cannula 7.0 06/05/20 07:00 97.0 22 93 97.0 Weight Weight [ ] I.O. Intake and Output Intake and Output 06/05/20 07:00 Intake Total 480 ml Balance 480 ml Intake Oral 480 ml Labs Labs Laboratory Tests Test 06/04/20 16:43 06/04/20 21:13 06/05/20 04:58 06/05/20 08:20 Glucose (Fingerstick) 154 mg/dL (70-99) 165 mg/dL (70-99) 159 mg/dL (70-99) Sodium Level 132 mmol/L (136-145) Potassium Level 5.2 mmol/L (3.5-5.1) Chloride Level 96 mmol/L (98-107) Carbon Dioxide Level 30 mmol/L (21-32) Anion Gap 6 (6-14) Blood Urea Nitrogen 45 mg/dL (7-20) Creatinine 4.7 mg/dL (0.6-1.0) Estimated GFR (Cockcroft-Gault) 9.6 Glucose Level 141 mg/dL (70-99) Calcium Level 9.5 mg/dL (8.5-10.1) Phosphorus Level 4.4 mg/dL (2.6-4.7) Magnesium Level 2.8 mg/dL (1.8-2.4) Albumin 2.8 g/dL (3.4-5.0) Test 06/05/20 12:42 Glucose (Fingerstick) 114 mg/dL (70-99) Micro Micro Microbiology 06/01/20 Urine Culture - Final, Complete 06/01/20 Antimicrobic Susceptibility - Final, Complete 04/26/20 Blood Culture - Final, Complete NO GROWTH AFTER 5 DAYS Review of Systems Constitutional: yes: weakness Ears/Nose/Throat: Yes: no symptom reported Eyes: Yes: no symptom reported Pulmonary: Yes dyspnea Cardiovascular: Yes no symptom reported Genitourinary: Yes: no symptom reported Skin: Yes no symptom reported Psychiatric/Neurological: Yes: no symptom reported Endocrine: Yes: no symptom reported Physical Exam General Appearance: no apparent distress Skin: warm Respiratory: decreased breath sounds Heart: S1S2 Abdomen: soft Genitourinary: bladder flat Extremities: pulses present Neurology: alert, oriented Musculoskeletal: low back pain (Degenerative disc disease), Osteoarthritis Assessment Assessment IMP ESRD ACUTE RESP FAILURE ANEMIA COVID 19 DM II MORBID OBESITY FATIGUE ENCEPHALOPATHY-RESOLVED SEVERE DECONDITIONING PLAN HD TODAY UF TO DW CONT WITH THERAPY TO [facility]CE BED IS AVAILABLE WILL FOLLOW CARTER PEREZ MD Jun 05, 2020 13:01
[2020-06-05] MEDS ORDERED: ACET325T21 PO (14:07)
[2020-06-05] MEDS ORDERED: BISA10SU4 RC (14:08)
[2020-06-05] MEDS ORDERED: CYCL10TA2 PO (14:10)
[2020-06-05] MEDS ORDERED: DICY10CA3 PO (14:12)
[2020-06-05] MEDS ORDERED: GABA600T7 PO (14:21)
[2020-06-05] MEDS ORDERED: INSU100V8 SQ (14:24)
[2020-06-05] MEDS ORDERED: HYDR-2761 PO (14:24)
[2020-06-05] MEDS ORDERED: LINA5TAB PO (14:31)
[2020-06-05] MEDS ORDERED: LOPE2TAB27 PO (14:32)
[2020-06-05] MEDS ORDERED: LORA-434 PO (14:34)
[2020-06-05] MEDS ORDERED: MICO45CR41 VG (14:39)
[2020-06-05] MEDS ORDERED: NYST15CR TP (14:40)
[2020-06-05] MEDS ORDERED: PANT20TA2 PO (14:41)
[2020-06-05] MEDS ORDERED: ONDA4TAB12 PO (14:41)
[2020-06-05] MEDS ORDERED: POLY17PO29 PO (14:42)
[2020-06-05] MEDS ORDERED: SIME80TA14 PO (14:43)
[2020-06-05] MEDS ORDERED: TEMA15CA PO (14:44)
[2020-06-05] MEDS ORDERED: ZINC50TA39 PO (14:44)
--- NOTE | 2020-06-05 15:15 | NUR ---
Discharge Note: HAVEN TITUS Discharge instructions and discharge home medications reviewed with Patient and a copy given. All questions have been answered and understanding verbalized. The following instructions and handouts were given: pneumonia. Patient discharged to [facility] with EMS via gurney. Report called to CORINNA Torres.
--- NOTE | 2020-08-30 16:02 | PDOC1 ---
History & Physical: Date of Service: DOS: 04-27-2020 H&P: PATIENT: GLENN MCKINNEY ACCOUNT: [id number] : 03/18/1940 LOC: [address] [place] [address] AGE: 80 SEX: F STATUS: ADM IN LOCATION: [address] [place] [address] ADMIT DATE: 04/28/2020 CHIEF COMPLAINT AND HISTORY OF PRESENT ILLNESS: This 80-year-old white female was admitted because of increasing shortness of breath and tachycardia at home. Her [id number] is a nurse states she has not taken her medicines for the last 5 days or so. 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 She was having nonsustained runs of ventricular tachycardia in the Emergency Room, was noted to have an ejection fraction of 40% and admitted to telemetry for Cardiology consultation as well as having some congestive heart failure clinically as well as hypoxemia with O2 sats in the 80s. She denied any exposure to COVID-19. PAST MEDICAL HISTORY: Remarkable for atrial fib as well as cardiomyopathy. PAST SURGICAL HISTORY: She has had a prior CABG, knee replacements. MEDICATIONS: Brought with the patient, listed on the computer have been addressed. ALLERGIES: SHE IS ALLERGIC TO TETANUS, OXAPROZIN, SULFA. SOCIAL HISTORY: She is a lifetime nonsmoker, nondrinker, does not use drugs. , lives at home with her . FAMILY HISTORY: Noncontributory. REVIEW OF SYSTEMS: Remarkable for her moving lots of urine output since admission but her breathing being much better than it was prior to admission. She denies any chest pain, lightheadedness. PHYSICAL EXAMINATION: GENERAL: She is well-developed, well-nourished white female, in no acute distress. VITAL SIGNS: Stable. She is afebrile. HEAD, EYES, EARS, NOSE AND THROAT: Unremarkable. NECK: Supple, without adenopathy or thyromegaly. CHEST: Reveals clear to auscultation. HEART: Regular rate and rhythm without S3, S4 or murmur. ABDOMEN: Soft, nontender, without hepatosplenomegaly or masses. EXTREMITIES: Without cyanosis, clubbing or edema. NEUROLOGIC: She is intact. LABORATORY DATA: Initial laboratory reveals CBC which is essentially unremarkable. Chemistry panel showing a BNP of 3223. Troponin is normal. BUN is 22, creatinine 1. Chest x-ray shows no acute cardiopulmonary process. Urinalysis is unremarkable. IMPRESSION: 1. Shortness of breath with hypoxic respiratory failure due to congestive heart failure. 2. Nonsustained ventricular tachycardia. 3. Cardiomyopathy. 4. Poor compliance with meds prior to admission. PLAN: Diuresis, cardiology consultation, antiarrhythmic, therapy per Cardiology. JAILENE Chavez. MD JAMAAL DR: KHADAR/batool JOB#: [id number] / [id number] DICTATED BY: JAILENE HINTON MD 04/29/20919 SIGNED BY: JAILENE HINTON MD 04/30/20920 cc: JAILENE HINTNO MD ~[id number] Page of JAILENE HINTON MD Aug 30, 2020 16:02
== END 2020-06-05 15:15 | DRG 177 ==
LOC: ER 18:23 → 2 SOUTH 22:55 → 1 WEST ICU 04-30 15:20 → 2 SOUTH 05-21 15:51
PROVIDERS: ADMIT Family Medicine; ATTEND Family Medicine
PROC: 5A09457 Assistance with Respiratory Ventilation, 24-96 Consecutive Hours, Continuous Positive Airway Pressure (ICD-10-PCS; principal; 2020-04-28)
PROC: 5A0935A Assistance with Respiratory Ventilation, Less than 24 Consecutive Hours, High Flow/Velocity Cannula (ICD-10-PCS; 2020-05-02)
PROC: 5A0935A Assistance with Respiratory Ventilation, Less than 24 Consecutive Hours, High Flow/Velocity Cannula (ICD-10-PCS; 2020-05-08)
PROC: 5A0935A Assistance with Respiratory Ventilation, Less than 24 Consecutive Hours, High Flow/Velocity Cannula (ICD-10-PCS; 2020-05-09)
PROC: 5A0935A Assistance with Respiratory Ventilation, Less than 24 Consecutive Hours, High Flow/Velocity Cannula (ICD-10-PCS; 2020-05-10)
PROC: 5A0935A Assistance with Respiratory Ventilation, Less than 24 Consecutive Hours, High Flow/Velocity Cannula (ICD-10-PCS; 2020-05-16)
PROC: 5A09457 Assistance with Respiratory Ventilation, 24-96 Consecutive Hours, Continuous Positive Airway Pressure (ICD-10-PCS; 2020-05-19)
PROC: 02H633Z Insertion of Infusion Device into Right Atrium, Percutaneous Approach (ICD-10-PCS; 2020-05-20)
PROC: B548ZZA Ultrasonography of Superior Vena Cava, Guidance (ICD-10-PCS; 2020-05-20)
PROC: 5A0935A Assistance with Respiratory Ventilation, Less than 24 Consecutive Hours, High Flow/Velocity Cannula (ICD-10-PCS; 2020-05-25)
PROC: 5A0935A Assistance with Respiratory Ventilation, Less than 24 Consecutive Hours, High Flow/Velocity Cannula (ICD-10-PCS; 2020-05-26)
PROC: 5A1D70Z Performance of Urinary Filtration, Intermittent, Less than 6 Hours Per Day (ICD-10-PCS; 2020-05-29)
PROC: 5A0935A Assistance with Respiratory Ventilation, Less than 24 Consecutive Hours, High Flow/Velocity Cannula (ICD-10-PCS; 2020-06-02)
PROC: 5A0935A Assistance with Respiratory Ventilation, Less than 24 Consecutive Hours, High Flow/Velocity Cannula (ICD-10-PCS; 2020-06-03)
PROC: 5A0935A Assistance with Respiratory Ventilation, Less than 24 Consecutive Hours, High Flow/Velocity Cannula (ICD-10-PCS; 2020-06-04)
PROC: 0JH63XZ Insertion of Tunneled Vascular Access Device into Chest Subcutaneous Tissue and Fascia, Percutaneous Approach (ICD-10-PCS; 2020-06-04)
PROC: 02H633Z Insertion of Infusion Device into Right Atrium, Percutaneous Approach (ICD-10-PCS; 2020-06-04)
PROC: 5A0935A Assistance with Respiratory Ventilation, Less than 24 Consecutive Hours, High Flow/Velocity Cannula (ICD-10-PCS; 2020-06-05)
PROC: 5A1D70Z Performance of Urinary Filtration, Intermittent, Less than 6 Hours Per Day (ICD-10-PCS; 2020-06-05)
DX: U07.1 COVID-19 (principal); N18.6 End stage renal disease; J12.82 Pneumonia due to coronavirus disease 2019; J80 Acute respiratory distress syndrome; Z68.43 Body mass index [BMI] 50.0-59.9, adult; E87.1 Hypo-osmolality and hyponatremia; G93.40 Encephalopathy, unspecified; I12.0 Hypertensive chronic kidney disease with stage 5 chronic kidney disease or end stage renal disease; J44.0 Chronic obstructive pulmonary disease with (acute) lower respiratory infection; D63.8 Anemia in other chronic diseases classified elsewhere; E11.22 Type 2 diabetes mellitus with diabetic chronic kidney disease; E66.01 Morbid (severe) obesity due to excess calories; E78.00 Pure hypercholesterolemia, unspecified; E78.5 Hyperlipidemia, unspecified; E87.5 Hyperkalemia; E87.6 Hypokalemia; G47.33 Obstructive sleep apnea (adult) (pediatric); K59.00 Constipation, unspecified; E21.3 Hyperparathyroidism, unspecified; G56.03 Carpal tunnel syndrome, bilateral upper limbs; G62.9 Polyneuropathy, unspecified; R79.89 Other specified abnormal findings of blood chemistry; E88.09 Other disorders of plasma-protein metabolism, not elsewhere classified; Z66 Do not resuscitate; Z87.891 Personal history of nicotine dependence; Z98.51 Tubal ligation status; Z99.2 Dependence on renal dialysis; Z88.5 Allergy status to narcotic agent
CPT/HCPCS: 36415; 36556; 36558; 36600; 70450; 71045; 71275; 76937; 77001; 80048; 80053; 80069; 81001; 82140; 82150; 82248; 82550; 82607; 82805; 82947; 82962; 83605; 83690; 83735; 83880; 84100; 84443; 84484; 85007; 85018; 85025; 85027; 85379; 85610; 86140; 87040; 87077; 87086; 87186; 87804; 93005; 94070; 94640; 94660; 94760; 96361; 96365; 96375; 99152; 99153; 99285; A4215; C1750; C1769; C1892; C9113; J0456; J0690; J0696; J0882; J1644; J1815; J2250; J3010; J3480; J3490; J7030; J7050; P9046; Q9967; 97110-GO; 97110-GP; 97530-GO; 97530-GP; 97535-GO; G0378; Q0163

== ENCOUNTER → 2020-08-13 | Outpatient (CLI) | payer MEDICARE, MEDICAID ==
[~2020-08-13] MED LIST changes: +ACET325T21 PO; +ASCO500C PO; +BISA10SU4 RC; +CARV25TA PO; +CHOL500021 PO; +CYCL10TA2 PO; +HYDR-2761 PO; +INSU100V8 SQ; +LINA5TAB PO; +LOPE2TAB27 PO; +LORA-434 PO; +METO5TAB4 PO; +MICO45CR41 VG; +MULT1TAB49 PO; -MULT1TAB50 PO; +NYST15CR TP; +PANT20TA2 PO; +POLY17PO29 PO; +SEVE800T8 PO; +SIME80TA14 PO; +TEMA15CA PO; +VIT1TABL71 PO; +ZINC50TA39 PO
--- NOTE | 2020-08-13 17:21 | RAD ---
Chest radiograph 08/13/2020 11:51 AM INDICATION: Covid 19 pneumonia COMPARISON: 05/20/2020 TECHNIQUE: Frontal and lateral views of the chest are provided. FINDINGS: The cardiomediastinal silhouette is borderline enlarged, stable. There are no pleural effusions. There is no pulmonary vascular congestion. There is no pneumothorax. Improved perihilar interstitial airspace disease with minimal residual interstitial changes of the angela ng bases. No significant osseous abnormality is identified. IMPRESSION: Near complete resolution of interstitial perihilar airspace disease with minimal residual at the lung bases. Consideration may be given for scarring versus subsegmental atelectasis. Electronically signed by: Evie Mabry MD (08/13/2020 5:19 PM) [id number]
== END ==
LOC: RAD 11:21
PROVIDERS: ATTEND Internal Medicine Critical Care Medicine
DX: U07.1 COVID-19 (principal); J12.82 Pneumonia due to coronavirus disease 2019; I51.7 Cardiomegaly
CPT/HCPCS: 71046

== ENCOUNTER → 2020-10-22 | Outpatient (CLI) | payer MEDICARE, MEDICAID ==
[~2020-10-22] MED LIST changes: -MULT1TAB49 PO; +MULT1TAB50 PO
--- NOTE | 2020-10-22 15:03 | RAD ---
EXAM: PA and Lateral Views of the Chest DATE: 10/22/2020 10:13 AM INDICATION: Reason: SHORTNESS OF BREATH. COUGH. / Spl. Instructions: / History: COMPARISON: 08/13/2020 05/20/2020 FINDINGS/ IMPRESSION: Heart is mildly enlarged. Right IJ catheter tip projects over the proximal SVC. No pneumothorax. Patchy bibasilar opacities likely atelectasis or developing consolidation. No pleural effusion or pne umothorax. Electronically signed by: Rigo Andres MD (10/22/2020 3:01 PM) NATE
== END ==
LOC: RAD 10:03
PROVIDERS: ATTEND Family Medicine
DX: I51.7 Cardiomegaly (principal); R06.02 Shortness of breath; R05 Cough
CPT/HCPCS: 71046

== ENCOUNTER → 2021-03-17 | Outpatient (CLI) | payer MEDICARE, MEDICAID ==
[~2021-03-17] MED LIST changes: +CARV12.5 PO; +CHOL5000 PO; +CYCL10TA19 PO; -CYCL10TA2 PO; +FURO-68 PO; +GENT30OI2 TP; +INSU100V35 SQ
--- NOTE | 2021-03-17 14:01 | RAD ---
Left lower extremity venous duplex study 03/17/2021 Clinical History: Lower extremity pain and edema Technique: Using a combination of real time ultrasound imaging and color-flow and pulse Doppler imagi ng techniques, including spectral analysis, graded compression and augmentation, duplex evaluation of the deep venous system of the left lower extremity was performed. Multiple images were obtained. Findings: There is no sonographic evidence of deep venous thrombosis involving the visualized deep ve nous structures of the left lower extremity Impression: No evidence of deep venous thrombosis involving the left lower extremity Electronically signed by: Manny Mcfadden MD (03/17/2021 1:59 PM) [id number]
--- NOTE | 2021-03-17 14:25 | RAD ---
XR FOOT_LEFT 3 VIEWS, XR LT TIBIA + FIBULA, XR KNEE 3 VIEWS, XR EXAM OF ANKLE_LEFT 3V DATE: 03/17/2021 12:54 PM INDICATION: FALL FROM STANDING. LEFT ANKLE SWELLING. LEFT ANTERIOR KNEE PAIN. COMPARISON: None. FINDINGS: Knee: No acute fracture. Severe medial compartment degenerative changes, moderate lateral and patello femoral compartment degenerative changes. No knee joint effusion. Tibia/Fibula and Ankle: Acute mildly displaced fracture of the distal fibula extending superolaterall y from the level of the syndesmosis. Mild widening of the medial clear space, measuring 6 mm. Ankle m ortise is congruent. Foot: No acute fracture. Lisfranc's joint is congruent. Mild degenerative changes of the midfoot. Guille ntar calcaneal enthesophyte. IMPRESSION: Acute mildly displaced lateral malleolus fracture. Widening of the medial clear space consistent with ligamentous injury. Electronically signed by: Peter Hernandez MD (03/17/2021 2:22 PM) [id number]
== END ==
LOC: US 12:43
PROVIDERS: ATTEND Internal Medicine
DX: S82.62XA Displaced fracture of lateral malleolus of left fibula, initial encounter for closed fracture (principal); M17.0 Bilateral primary osteoarthritis of knee; M25.775 Osteophyte, left foot; M19.072 Primary osteoarthritis, left ankle and foot; W19.XXXA Unspecified fall, initial encounter; Y93.89 Activity, other specified; Y92.89 Other specified places as the place of occurrence of the external cause; Y99.8 Other external cause status
CPT/HCPCS: 73590; 73610; 73630; 93971; 73562-50